=== PATIENT | male | born 1985 | race Hispanic/Latino ===

== ENCOUNTER 2017-12-01 17:54 | Inpatient (IN) | payer OTHER ==
--- OUTSIDE RECORDS SUMMARY | 2017-12-01 17:58 | XMS REPORT ---
:1985 [facility] [address] [place] [address] Care Team Providers Name Role Phone UNKNOWN, REFFERING Primary Care Provider Unavailable DANYELLE HAND M.D. Unavailable Unavailable KHAI GILLETTE M.D. Unavailable Unavailable Celia PIERCE Unavailable Unavailable Problems This patient has no known problems. Allergies, Adverse Reactions, Alerts This patient has no known allergies or adverse reactions. Medications This patient has no known medications. Encounters Start End Encounter Admission Attending Care Care Encounter Date/Time Date/Time Type Type Clinicians Facility Department ID 2017-07-02 2017-07-07 [facility] [id number] 14:57:00 22:44:00 [place] Results Test Description Test Time Test Comments Text Results Atomic Results Result Comments POC Glucose, Blood 2017-07-19 11:20:00 Test Item Value Reference Range Comments POC Glucose (test code=POCGLUC) 160 mg/dL 70-115 If you consider your patient critically ill, the [place] Accu-Chek InformII metershould not be used for Glucose determinations.Draw a venous Glucose and send to the Main Lab for Analysis. POC Glucose, [id number] 07:41:00 Test Item Value Reference Range Comments POC Glucose (test 121 mg/dL 70-115 If you consider your patient code=POCGLUC) critically ill, the [place] Accu-Chek InformII metershould not be used for Glucose determinations.Draw a venous Glucose and send to the Main Lab for Analysis. POC Glucose, [id number] 21:24:00 Test Item Value Reference Range Comments POC Glucose (test 108 mg/dL 70-115 If you consider your patient code=POCGLUC) critically ill, the [place] Accu-Chek InformII metershould not be used for Glucose determinations.Draw a venous Glucose and send to the Main Lab for Analysis. POC Glucose, [id number] 15:55:00 Test Item Value Reference Range Comments POC Glucose (test 160 mg/dL 70-115 Notify RN or MDIf you consider code=POCGLUC) your patient critically ill, the [place] Accu-Chek InformII metershould not be used for Glucose determinations.Draw a venous Glucose and send to the Main Lab for Analysis. POC Glucose, [id number] 11:21:00 Test Item Value Reference Range Comments POC Glucose (test 111 mg/dL 70-115 If you consider your patient code=POCGLUC) critically ill, the [place] Accu-Chek InformII metershould not be used for Glucose determinations.Draw a venous Glucose and send to the Main Lab for Analysis. POC Glucose, [id number] 08:06:00 Test Item Value Reference Range Comments POC Glucose (test 135 mg/dL 70-115 If you consider your patient code=POCGLUC) critically ill, the [place] Accu-Chek InformII metershould not be used for Glucose determinations.Draw a venous Glucose and send to the Main Lab for Analysis. POC Glucose, [id number] 22:43:00 Test Item Value Reference Range Comments POC Glucose (test 106 mg/dL 70-115 If you consider your patient code=POCGLUC) critically ill, the [place] Accu-Chek InformII metershould not be used for Glucose determinations.Draw a venous Glucose and send to the Main Lab for Analysis. POC Glucose, [id number] 16:42:00 Test Item Value Reference Range Comments POC Glucose (test 96 mg/dL 70-115 If you consider your patient code=POCGLUC) critically ill, the [place] Accu-Chek InformII metershould not be used for Glucose determinations.Draw a venous Glucose and send to the Main Lab for Analysis. POC Glucose, [id number] 11:10:00 Test Item Value Reference Range Comments POC Glucose (test 149 mg/dL 70-115 Notify RN or MDIf you consider code=POCGLUC) your patient critically ill, the [place] Accu-Chek InformII metershould not be used for Glucose determinations.Draw a venous Glucose and send to the Main Lab for Analysis. POC Glucose, [id number] 07:26:00 Test Item Value Reference Range Comments POC Glucose (test 124 mg/dL 70-115 If you consider your patient code=POCGLUC) critically ill, the [place] Accu-Chek InformII metershould not be used for Glucose determinations.Draw a venous Glucose and send to the Main Lab for Analysis. POC Glucose, [id number] 21:16:00 Test Item Value Reference Range Comments POC Glucose (test 164 mg/dL 70-115 Notify RN or MDIf you consider code=POCGLUC) your patient critically ill, the [place] Accu-Chek InformII metershould not be used for Glucose determinations.Draw a venous Glucose and send to the Main Lab for Analysis. POC Glucose, [id number] 16:34:00 Test Item Value Reference Range Comments POC Glucose (test 100 mg/dL 70-115 If you consider your patient code=POCGLUC) critically ill, the [place] Accu-Chek InformII metershould not be used for Glucose determinations.Draw a venous Glucose and send to the Main Lab for Analysis. POC Glucose, [id number] 11:06:00 Test Item Value Reference Range Comments POC Glucose (test 120 mg/dL 70-115 If you consider your patient code=POCGLUC) critically ill, the [place] Accu-Chek InformII metershould not be used for Glucose determinations.Draw a venous Glucose and send to the Main Lab for Analysis. POC Glucose, [id number] 07:30:00 Test Item Value Reference Range Comments POC Glucose (test 80 mg/dL 70-115 If you consider your patient code=POCGLUC) critically ill, the [place] Accu-Chek InformII metershould not be used for Glucose determinations.Draw a venous Glucose and send to the Main Lab for Analysis. POC Glucose, [id number] 21:17:00 Test Item Value Reference Range Comments POC Glucose (test 175 mg/dL 70-115 Notify RN or MDIf you consider code=POCGLUC) your patient critically ill, the [place] Accu-Chek InformII metershould not be used for Glucose determinations.Draw a venous Glucose and send to the Main Lab for Analysis. POC Glucose, [id number] 17:46:00 Test Item Value Reference Range Comments POC Glucose (test 128 mg/dL 70-115 If you consider your patient code=POCGLUC) critically ill, the [place] Accu-Chek InformII metershould not be used for Glucose determinations.Draw a venous Glucose and send to the Main Lab for Analysis. POC Glucose, [id number] 11:35:00 Test Item Value Reference Range Comments POC Glucose (test 134 mg/dL 70-115 If you consider your patient code=POCGLUC) critically ill, the [place] Accu-Chek InformII metershould not be used for Glucose determinations.Draw a venous Glucose and send to the Main Lab for Analysis. POC Glucose, [id number] 08:10:00 Test Item Value Reference Range Comments POC Glucose (test 220 mg/dL 70-115 If you consider your patient code=POCGLUC) critically ill, the [place] Accu-Chek InformII metershould not be used for Glucose determinations.Draw a venous Glucose and send to the Main Lab for Analysis. Comprehensive Metabolic [id number] 06:52:00 Test Item Value Reference Range Comments Sodium (test code=NA) 136 mmol/L 135-145 Potassium (test code=K) 4.3 mmol/L 3.5-5.1 Chloride (test code=CL) 97 mmol/L 98-105 Carbon Dioxide (test 27 mmol/L 22-29 code=CO2) Glucose (test code=GLU) 137 mg/dL 70-115 Blood Urea Nitrogen 14 mg/dL 6-20 (test code=BUN) Creatinine (test 1.0 mg/dL 0.7-1.2 code=CREAT) Calcium (test code=CA) 8.7 mg/dL 8.3-10.5 Prot Total (test 5.9 g/dL 6.4-8.3 code=TP) Albumin (test code=ALB) 2.7 g/dL 3.5-5.2 A/G Ratio (test 0.8 Ratio code=AGRATIO) Globulin (test 3.2 2.9-3.1 code=GLOB) Bili Total (test 0.2 mg/dL 0.1-0.9 code=TBIL) Alk Phos (test 93 U/L 40-129 code=APHOS) AST (test code=AST) 32 U/L 1-40 ALT (test code=ALT) 7 U/L 1-41 BUN/Creatinine Ratio 14.0 (test code=BCRATIO) Anion Gap (test 12 mmol/L 7-16 code=AGAP) Estimated GFR (test >60 eGFR (estimated Glomerular code=GFR) mL/min/1.73m2 Filtration Rate) is an estimated value,calculated from the patient's serum creatinine using the MDRD equation.It is NOT the patient's actual GFR. The eGFR provides a more clinicallyuseful measure of kidney disease than serum creatinine alone.This calculation takes sex and race into account, if the informationis provided. If the race is not provided, and the patient isAfrican-Maltese, multiply by 1.212. If sex is not provided, and thepatient is female, multiply by 0.742. Results for patients <18 years ofage have not been validated by the MDRD study and should be interpretedwith caution.eGFR Result Interpretation:eGFR > or=60 is in the Normal RangeeGFR < 60 may mean kidney diseaseeGFR < 15 may mean kidney failureRanges recommended by the National Kidney Foundation,http://nkdep.ni h.gov CBC with [id number] 06:34:00 Test Item Value Reference Range Comments WBC (test code=WBC) 11.5 K/cumm 4.4-10.5 RBC (test code=RBC) 3.67 M/cumm 4.10-5.70 Hemoglobin (test code=HGB) 8.7 gm/dL 13.4-17.4 Hematocrit (test code=HCT) 27.5 % 38.7-52.0 MCV (test code=MCV) 74.9 fL 80-100 MCH (test code=MCH) 23.8 pg 27.0-32.5 MCHC (test code=MCHC) 31.7 g/dL 32.0-37.5 RDW (test code=RDW) 15.2 % 11.5-14.5 Platelet Count (test code=PLTCT) 499 K/cumm 140-440 MPV (test code=MPV) 6.0 fL Diff Method (test code=DIFFM) Auto Neutrophil (test code=NEUT) 70.6 % 36-70 Lymphocyte (test code=LYMPH) 21.3 % 12-44 Monocyte (test code=MONO) 6.0 % 0-11 Eosinophil (test code=EOS) 1.7 % 0-7 Basophil (test code=BASO) 0.4 % 0-2 Neutro Abs (test code=ANEUT) 8.1 K/cumm 1.6-7.4 Lymph Abs (test code=ALYMPH) 2.4 K/cumm 0.5-4.6 [place] Abs (test code=AMONO) 0.7 K/cumm 0.0-1.2 Eos Abs (test code=AEOS) 0.19 K/cumm 0.00-0.74 Baso Abs (test code=ABASO) 0.1 K/cumm 0.00-0.21 Microcytosis (test code=MICRO) Slight POC Glucose, [id number] 20:28:00 Test Item Value Reference Range Comments POC Glucose (test 211 mg/dL 70-115 If you consider your patient code=POCGLUC) critically ill, the [place] Accu-Chek InformII metershould not be used for Glucose determinations.Draw a venous Glucose and send to the Main Lab for Analysis. POC Glucose, [id number] 17:09:00 Test Item Value Reference Range Comments POC Glucose (test 146 mg/dL 70-115 If you consider your patient code=POCGLUC) critically ill, the [place] Accu-Chek InformII metershould not be used for Glucose determinations.Draw a venous Glucose and send to the Main Lab for Analysis. POC Glucose, [id number] 11:53:00 Test Item Value Reference Range Comments POC Glucose (test 136 mg/dL 70-115 If you consider your patient code=POCGLUC) critically ill, the [place] Accu-Chek InformII metershould not be used for Glucose determinations.Draw a venous Glucose and send to the Main Lab for Analysis. POC Glucose, [id number] 07:57:00 Test Item Value Reference Range Comments POC Glucose (test 143 mg/dL 70-115 If you consider your patient code=POCGLUC) critically ill, the [place] Accu-Chek InformII metershould not be used for Glucose determinations.Draw a venous Glucose and send to the Main Lab for Analysis. POC Glucose, [id number] 20:38:00 Test Item Value Reference Range Comments POC Glucose (test 152 mg/dL 70-115 Notify RN or MDIf you consider code=POCGLUC) your patient critically ill, the [place] Accu-Chek InformII metershould not be used for Glucose determinations.Draw a venous Glucose and send to the Main Lab for Analysis. POC Glucose, [id number] 16:49:00 Test Item Value Reference Range Comments POC Glucose (test 171 mg/dL 70-115 Notify RN or MDIf you consider code=POCGLUC) your patient critically ill, the [place] Accu-Chek InformII metershould not be used for Glucose determinations.Draw a venous Glucose and send to the Main Lab for Analysis. POC Glucose, [id number] 11:10:00 Test Item Value Reference Range Comments POC Glucose (test 160 mg/dL 70-115 Notify RN or MDIf you consider code=POCGLUC) your patient critically ill, the [place] Accu-Chek InformII metershould not be used for Glucose determinations.Draw a venous Glucose and send to the Main Lab for Analysis. POC Glucose, [id number] 07:36:00 Test Item Value Reference Range Comments POC Glucose (test 126 mg/dL 70-115 If you consider your patient code=POCGLUC) critically ill, the [place] Accu-Chek InformII metershould not be used for Glucose determinations.Draw a venous Glucose and send to the Main Lab for Analysis. POC Glucose, [id number] 20:51:00 Test Item Value Reference Range Comments POC Glucose (test 165 mg/dL 70-115 Notify RN or MDIf you consider code=POCGLUC) your patient critically ill, the [place] Accu-Chek InformII metershould not be used for Glucose determinations.Draw a venous Glucose and send to the Main Lab for Analysis. POC Glucose, [id number] 16:42:00 Test Item Value Reference Range Comments POC Glucose (test 133 mg/dL 70-115 If you consider your patient code=POCGLUC) critically ill, the [place] Accu-Chek InformII metershould not be used for Glucose determinations.Draw a venous Glucose and send to the Main Lab for Analysis. POC Glucose, [id number] 11:19:00 Test Item Value Reference Range Comments POC Glucose (test 250 mg/dL 70-115 Notify RN or MDIf you consider code=POCGLUC) your patient critically ill, the [place] Accu-Chek InformII metershould not be used for Glucose determinations.Draw a venous Glucose and send to the Main Lab for Analysis. Culture, [id number] 08:19:00Specimen: UrineCollected: 07/10/2017 12:47 Status: Final Last Updated: 07/12/2017 08:19 Culture Result (Final) (Final ) 07/11/17 No growth 24 hours 07/12/17 No growth 48 hoursPOC Glucose, [id number] 07:26:00 Test Item Value Reference Range Comments POC Glucose (test 131 mg/dL 70-115 Notify RN or MDIf you consider code=POCGLUC) your patient critically ill, the [place] Accu-Chek InformII metershould not be used for Glucose determinations.Draw a venous Glucose and send to the Main Lab for Analysis. POC Glucose, [id number] 20:55:00 Test Item Value Reference Range Comments POC Glucose (test 140 mg/dL 70-115 If you consider your patient code=POCGLUC) critically ill, the [place] Accu-Chek InformII metershould not be used for Glucose determinations.Draw a venous Glucose and send to the Main Lab for Analysis. POC Glucose, [id number] 16:13:00 Test Item Value Reference Range Comments POC Glucose (test 151 mg/dL 70-115 Notify RN or MDIf you consider code=POCGLUC) your patient critically ill, the [place] Accu-Chek InformII metershould not be used for Glucose determinations.Draw a venous Glucose and send to the Main Lab for Analysis. POC Glucose, [id number] 11:43:00 Test Item Value Reference Range Comments POC Glucose (test 170 mg/dL 70-115 Notify RN or MDIf you consider code=POCGLUC) your patient critically ill, the [place] Accu-Chek InformII metershould not be used for Glucose determinations.Draw a venous Glucose and send to the Main Lab for Analysis. POC Glucose, [id number] 07:23:00 Test Item Value Reference Range Comments POC Glucose (test 207 mg/dL 70-115 Notify RN or MDIf you consider code=POCGLUC) your patient critically ill, the [place] Accu-Chek InformII metershould not be used for Glucose determinations.Draw a venous Glucose and send to the Main Lab for Analysis. POC Glucose, [id number] 20:24:00 Test Item Value Reference Range Comments POC Glucose (test 208 mg/dL 70-115 If you consider your patient code=POCGLUC) critically ill, the [place] Accu-Chek InformII metershould not be used for Glucose determinations.Draw a venous Glucose and send to the Main Lab for Analysis. POC Glucose, [id number] 17:14:00 Test Item Value Reference Range Comments POC Glucose (test 158 mg/dL 70-115 If you consider your patient code=POCGLUC) critically ill, the [place] Accu-Chek InformII metershould not be used for Glucose determinations.Draw a venous Glucose and send to the Main Lab for Analysis. Urinalysis [id number] 13:04:00 Test Item Value Reference Range Comments Color (test code=COLOR) Straw Yellow,Straw,Pl yellow Clarity (test code=CLAR) Clear Clear Specific [place] (test code=SPGR) 1.010 1.001-1.035 pH (test code=PH) 5.0 5.0-9.0 Ketone (test code=KET) Negative mg/dL Negative Glucose (test code=GLUCUR) Negative mg/dL Negative Protein (test code=PROT) Negative mg/dL Negative Bilirubin (test code=BILI) Negative mg/dL Negative Occult Blood (test code=UDOB) Negative Negative Urobilinogen (test code=UROB) 0.2 mg/dL 0.2-1.0 Nitrite (test code=NIT) Negative Negative Leuk Esterase (test code=LEUK) Negative Negative Micros Exam (test code=MEXAM) Not indicated POC Glucose, [id number] 11:48:00 Test Item Value Reference Range Comments POC Glucose (test 135 mg/dL 70-115 If you consider your patient code=POCGLUC) critically ill, the [place] Accu-Chek InformII metershould not be used for Glucose determinations.Draw a venous Glucose and send to the Main Lab for Analysis. POC Glucose, [id number] 07:47:00 Test Item Value Reference Range Comments POC Glucose (test 173 mg/dL 70-115 If you consider your patient code=POCGLUC) critically ill, the [place] Accu-Chek InformII metershould not be used for Glucose determinations.Draw a venous Glucose and send to the Main Lab for Analysis. Basic Metabolic [id number] 05:18:00 Test Item Value Reference Range Comments Sodium (test code=NA) 133 mmol/L 135-145 Potassium (test code=K) 4.9 mmol/L 3.5-5.1 Chloride (test code=CL) 99 mmol/L 98-105 Carbon Dioxide (test 25 mmol/L 22-29 code=CO2) Glucose (test code=GLU) 129 mg/dL 70-115 Blood Urea Nitrogen 15 mg/dL 6-20 (test code=BUN) Creatinine (test 1.2 mg/dL 0.7-1.2 code=CREAT) Calcium (test code=CA) 8.3 mg/dL 8.3-10.5 BUN/Creatinine Ratio 12.5 (test code=BCRATIO) Anion Gap (test 9 mmol/L 7-16 code=AGAP) Estimated GFR (test >60 eGFR (estimated Glomerular code=GFR) mL/min/1.73m2 Filtration Rate) is an estimated value,calculated from the patient's serum creatinine using the MDRD equation.It is NOT the patient's actual GFR. The eGFR provides a more clinicallyuseful measure of kidney disease than serum creatinine alone.This calculation takes sex and race into account, if the informationis provided. If the race is not provided, and the patient isAfrican-Maltese, multiply by 1.212. If sex is not provided, and thepatient is female, multiply by 0.742. Results for patients <18 years ofage have not been validated by the MDRD study and should be interpretedwith caution.eGFR Result Interpretation:eGFR > or=60 is in the Normal RangeeGFR < 60 may mean kidney diseaseeGFR < 15 may mean kidney failureRanges recommended by the National Kidney Foundation,http://nkdep.ni h.gov CBC with [id number] 04:59:00 Test Item Value Reference Range Comments WBC (test code=WBC) 11.3 K/cumm 4.4-10.5 RBC (test code=RBC) 3.93 M/cumm 4.10-5.70 Hemoglobin (test code=HGB) 9.6 gm/dL 13.4-17.4 Hematocrit (test code=HCT) 30.6 % 38.7-52.0 MCV (test code=MCV) 78.0 fL 80-100 MCH (test code=MCH) 24.4 pg 27.0-32.5 MCHC (test code=MCHC) 31.3 g/dL 32.0-37.5 RDW (test code=RDW) 15.7 % 11.5-14.5 Platelet Count (test code=PLTCT) 346 K/cumm 140-440 MPV (test code=MPV) 6.5 fL Diff Method (test code=DIFFM) Auto Neutrophil (test code=NEUT) 65.7 % 36-70 Lymphocyte (test code=LYMPH) 24.3 % 12-44 Monocyte (test code=MONO) 7.4 % 0-11 Eosinophil (test code=EOS) 2.3 % 0-7 Basophil (test code=BASO) 0.4 % 0-2 Neutro Abs (test code=ANEUT) 7.4 K/cumm 1.6-7.4 Lymph Abs (test code=ALYMPH) 2.7 K/cumm 0.5-4.6 [place] Abs (test code=AMONO) 0.8 K/cumm 0.0-1.2 Eos Abs (test code=AEOS) 0.26 K/cumm 0.00-0.74 Baso Abs (test code=ABASO) 0.0 K/cumm 0.00-0.21 POC Glucose, [id number] 20:59:00 Test Item Value Reference Range Comments POC Glucose (test 199 mg/dL 70-115 Notify RN or MDIf you consider code=POCGLUC) your patient critically ill, the [place] Accu-Chek InformII metershould not be used for Glucose determinations.Draw a venous Glucose and send to the Main Lab for Analysis. POC Glucose, [id number] 16:26:00 Test Item Value Reference Range Comments POC Glucose (test 170 mg/dL 70-115 Notify RN or MDIf you consider code=POCGLUC) your patient critically ill, the [place] Accu-Chek InformII metershould not be used for Glucose determinations.Draw a venous Glucose and send to the Main Lab for Analysis. POC Glucose, [id number] 11:41:00 Test Item Value Reference Range Comments POC Glucose (test 246 mg/dL 70-115 If you consider your patient code=POCGLUC) critically ill, the [place] Accu-Chek InformII metershould not be used for Glucose determinations.Draw a venous Glucose and send to the Main Lab for Analysis. Glycosylated [id number] 07:39:00 Test Item Value Reference Range Comments HBA1c (test code=HBA1C) 9.1 % 4.8-5.9 POC Glucose, [id number] 07:36:00 Test Item Value Reference Range Comments POC Glucose (test 206 mg/dL 70-115 If you consider your patient code=POCGLUC) critically ill, the [place] Accu-Chek InformII metershould not be used for Glucose determinations.Draw a venous Glucose and send to the Main Lab for Analysis. CBC with [id number] 06:09:00 Test Item Value Reference Range Comments WBC (test code=WBC) 15.4 K/cumm 4.4-10.5 RBC (test code=RBC) 4.26 M/cumm 4.10-5.70 Hemoglobin (test code=HGB) 10.1 gm/dL 13.4-17.4 Hematocrit (test code=HCT) 32.3 % 38.7-52.0 MCV (test code=MCV) 75.8 fL 80-100 MCH (test code=MCH) 23.6 pg 27.0-32.5 MCHC (test code=MCHC) 31.2 g/dL 32.0-37.5 RDW (test code=RDW) 15.4 % 11.5-14.5 Platelet Count (test code=PLTCT) 401 K/cumm 140-440 MPV (test code=MPV) 6.2 fL Diff Method (test code=DIFFM) Auto Neutrophil (test code=NEUT) 69.5 % 36-70 Lymphocyte (test code=LYMPH) 22.7 % 12-44 Monocyte (test code=MONO) 6.2 % 0-11 Eosinophil (test code=EOS) 1.2 % 0-7 Basophil (test code=BASO) 0.4 % 0-2 Neutro Abs (test code=ANEUT) 10.7 K/cumm 1.6-7.4 Lymph Abs (test code=ALYMPH) 3.5 K/cumm 0.5-4.6 [place] Abs (test code=AMONO) 1.0 K/cumm 0.0-1.2 Eos Abs (test code=AEOS) 0.19 K/cumm 0.00-0.74 Baso Abs (test code=ABASO) 0.1 K/cumm 0.00-0.21 Microcytosis (test code=MICRO) Slight Comprehensive Metabolic [id number] 06:00:00 Test Item Value Reference Range Comments Sodium (test code=NA) 126 mmol/L 135-145 Potassium (test code=K) 4.3 mmol/L 3.5-5.1 Chloride (test code=CL) 90 mmol/L 98-105 Carbon Dioxide (test 26 mmol/L 22-29 code=CO2) Glucose (test code=GLU) 191 mg/dL 70-115 Blood Urea Nitrogen 14 mg/dL 6-20 (test code=BUN) Creatinine (test 1.0 mg/dL 0.7-1.2 code=CREAT) Calcium (test code=CA) 8.4 mg/dL 8.3-10.5 Prot Total (test 6.4 g/dL 6.4-8.3 code=TP) Albumin (test code=ALB) 3.5 g/dL 3.5-5.2 A/G Ratio (test 1.2 Ratio code=AGRATIO) Globulin (test 2.9 2.9-3.1 code=GLOB) Bili Total (test 0.2 mg/dL 0.1-0.9 code=TBIL) Alk Phos (test 98 U/L 40-129 code=APHOS) AST (test code=AST) 25 U/L 1-40 ALT (test code=ALT) 12 U/L 1-41 BUN/Creatinine Ratio 14.0 (test code=BCRATIO) Anion Gap (test 10 mmol/L 7-16 code=AGAP) Estimated GFR (test >60 eGFR (estimated Glomerular code=GFR) mL/min/1.73m2 Filtration Rate) is an estimated value,calculated from the patient's serum creatinine using the MDRD equation.It is NOT the patient's actual GFR. The eGFR provides a more clinicallyuseful measure of kidney disease than serum creatinine alone.This calculation takes sex and race into account, if the informationis provided. If the race is not provided, and the patient isAfrican-Maltese, multiply by 1.212. If sex is not provided, and thepatient is female, multiply by 0.742. Results for patients <18 years ofage have not been validated by the MDRD study and should be interpretedwith caution.eGFR Result Interpretation:eGFR > or=60 is in the Normal RangeeGFR < 60 may mean kidney diseaseeGFR < 15 may mean kidney failureRanges recommended by the National Kidney Foundation,http://nkdep.ni h.gov Magnesium, [id number] 06:00:00 Test Item Value Reference Range Comments Magnesium (test code=MG) 2.2 mg/dL 1.7-2.5 [id number] 06:00:00 Test Item Value Reference Range Comments Phosphorus (test code=PO4) 2.8 mg/dL 2.70-4.50 POC Glucose, [id number] 20:44:00 Test Item Value Reference Range Comments POC Glucose (test 199 mg/dL 70-115 If you consider your patient code=POCGLUC) critically ill, the [place] Accu-Chek InformII metershould not be used for Glucose determinations.Draw a venous Glucose and send to the Main Lab for Analysis. POC Glucose, [id number] 16:28:00 Test Item Value Reference Range Comments POC Glucose (test 242 mg/dL 70-115 Notify RN or MDIf you consider code=POCGLUC) your patient critically ill, the [place] Accu-Chek InformII metershould not be used for Glucose determinations.Draw a venous Glucose and send to the Main Lab for Analysis. POC Glucose, [id number] 13:37:00 Test Item Value Reference Range Comments POC Glucose (test 131 mg/dL 70-115 If you consider your patient code=POCGLUC) critically ill, the [place] Accu-Chek InformII metershould not be used for Glucose determinations.Draw a venous Glucose and send to the Main Lab for Analysis. POC Glucose, [id number] 12:14:00 Test Item Value Reference Range Comments POC Glucose (test 100 mg/dL 70-115 If you consider your patient code=POCGLUC) critically ill, the [place] Accu-Chek InformII metershould not be used for Glucose determinations.Draw a venous Glucose and send to the Main Lab for Analysis. POC Glucose, [id number] 07:30:00 Test Item Value Reference Range Comments POC Glucose (test 123 mg/dL 70-115 If you consider your patient code=POCGLUC) critically ill, the [place] Accu-Chek InformII metershould not be used for Glucose determinations.Draw a venous Glucose and send to the Main Lab for Analysis. Basic Metabolic [id number] 06:05:00 Test Item Value Reference Range Comments Sodium (test code=NA) 138 mmol/L 135-145 Potassium (test code=K) 4.0 mmol/L 3.5-5.1 Chloride (test code=CL) 98 mmol/L 98-105 Carbon Dioxide (test 32 mmol/L 22-29 code=CO2) Glucose (test code=GLU) 128 mg/dL 70-115 Blood Urea Nitrogen 16 mg/dL 6-20 (test code=BUN) Creatinine (test 1.2 mg/dL 0.7-1.2 code=CREAT) Calcium (test code=CA) 9.4 mg/dL 8.3-10.5 BUN/Creatinine Ratio 13.3 (test code=BCRATIO) Anion Gap (test 8 mmol/L 7-16 code=AGAP) Estimated GFR (test >60 eGFR (estimated Glomerular code=GFR) mL/min/1.73m2 Filtration Rate) is an estimated value,calculated from the patient's serum creatinine using the MDRD equation.It is NOT the patient's actual GFR. The eGFR provides a more clinicallyuseful measure of kidney disease than serum creatinine alone.This calculation takes sex and race into account, if the informationis provided. If the race is not provided, and the patient isAfrican-Maltese, multiply by 1.212. If sex is not provided, and thepatient is female, multiply by 0.742. Results for patients <18 years ofage have not been validated by the MDRD study and should be interpretedwith caution.eGFR Result Interpretation:eGFR > or=60 is in the Normal RangeeGFR < 60 may mean kidney diseaseeGFR < 15 may mean kidney failureRanges recommended by the National Kidney Foundation,http://nkdep.ni h.gov CBC with [id number] 05:44:00 Test Item Value Reference Range Comments WBC (test code=WBC) 12.0 K/cumm 4.4-10.5 RBC (test code=RBC) 4.84 M/cumm 4.10-5.70 Hemoglobin (test code=HGB) 11.6 gm/dL 13.4-17.4 Hematocrit (test code=HCT) 37.5 % 38.7-52.0 MCV (test code=MCV) 77.4 fL 80-100 MCH (test code=MCH) 23.9 pg 27.0-32.5 MCHC (test code=MCHC) 30.9 g/dL 32.0-37.5 RDW (test code=RDW) 15.5 % 11.5-14.5 Platelet Count (test code=PLTCT) 443 K/cumm 140-440 MPV (test code=MPV) 6.2 fL Diff Method (test code=DIFFM) Auto Neutrophil (test code=NEUT) 49.5 % 36-70 Lymphocyte (test code=LYMPH) 39.8 % 12-44 Monocyte (test code=MONO) 6.9 % 0-11 Eosinophil (test code=EOS) 2.9 % 0-7 Basophil (test code=BASO) 0.9 % 0-2 Neutro Abs (test code=ANEUT) 5.9 K/cumm 1.6-7.4 Lymph Abs (test code=ALYMPH) 4.8 K/cumm 0.5-4.6 [place] Abs (test code=AMONO) 0.8 K/cumm 0.0-1.2 Eos Abs (test code=AEOS) 0.34 K/cumm 0.00-0.74 Baso Abs (test code=ABASO) 0.1 K/cumm 0.00-0.21 POC Glucose, [id number] 20:29:00 Test Item Value Reference Range Comments POC Glucose (test 152 mg/dL 70-115 If you consider your patient code=POCGLUC) critically ill, the [place] Accu-Chek InformII metershould not be used for Glucose determinations.Draw a venous Glucose and send to the Main Lab for Analysis. Antibody Screen - [id number] 17:58:00 Test Item Value Reference Range Comments Antibody Screen (test code=ABSCR) Negative Blood Type and [id number] 17:44:00 Test Item Value Reference Range Comments ABO type (test code=ABO) A Rh Type (test code=RH) Positive POC Glucose, [id number] 16:09:00 Test Item Value Reference Range Comments POC Glucose (test 192 mg/dL 70-115 If you consider your patient code=POCGLUC) critically ill, the [place] Accu-Chek InformII metershould not be used for Glucose determinations.Draw a venous Glucose and send to the Main Lab for Analysis. POC Glucose, [id number] 12:11:00 Test Item Value Reference Range Comments POC Glucose (test 249 mg/dL 70-115 If you consider your patient code=POCGLUC) critically ill, the [place] Accu-Chek InformII metershould not be used for Glucose determinations.Draw a venous Glucose and send to the Main Lab for Analysis. MRI LWR EXTRM NON-JNT WO [id number] 09:25:10LOCATION: [id number]: MRI LWR EXTRM NON-T WO CONTRST-LEFTINDICATION: LEFT FOOT DORSAL CALLOUSCOMPARISON : Left foot radiographs July 04, 2017.TECHNIQUE: Multiplanar, multisequence imaging of the left foot obtainedwithout contrast.FINDINGS: Bony edema involving the first metatarsal base as well as baseof the second metatarsal and base of the third metatarsal present. Thereis bony edema throughout thelateral cuneiform as well. Partialdisruption of the dorsal intermetatarsal ligament between the second andthird metatarsals. Muscular edema of the quadratus planta the muscle inthe deep soft tissues ofthe midfoot. Flexor and extensor tendons areintact. Small dorsal protruding ganglion cyst from the first MTP jointmeasuring 6 mm present. No T1 marrow signal replacement seen. Softtissue ulceration of the lateral forefoot with associated T1 marrowsignal replacement and bony edema of the fifth metatarsal remnant.Findings concerning for osteomyelitis.IMPRESSION:1. Findings concerning for a myelitis of the lateral forefoot involvingthe fifth metatarsal remnant. Associated ulceration.2. Bony edema at the base of the first through third metatarsals as wellas the lateral cuneiform. No fracture is seen. There is grade 2 spraininvolving the dorsal intermetatarsal ligament between the second andthird metatarsals. These findings are concerning for injury.US DUPLX LWR EXT ART/BPG, [id number] 08: 50:53US DUPLX LWR EXT ART/BPG, BILATCLINICAL HISTORY: non-healing woundsTechnique: Grayscale, color, and spectral sonography of the bilateral lower extremity arteries was performed.FINDINGS:Right leg (waveform / peak systolic velocity)INFORMATION TECHNOLOGY PROGRAM MANAGER: Triphasic 95 cm/secProx SFA: Triphasic 92 cm/secMid SFA: Triphasic 81 cm/secDistal SFA: Triphasic 83 cm/ secPopliteal: Triphasic 84 cm/secPTA: Monophasic 93 cm/ secATA: Triphasic 32 cm/secDPA: Not imaged/bandaging Left leg (waveform / peak systolic velocity)INFORMATION TECHNOLOGY PROGRAM MANAGER: Triphasic 88 cm/secProx SFA: Triphasic 93 cm/secMid SFA: Triphasic 82 cm/ secDistal SFA: Triphasic 49 cm/secPopliteal: Triphasic 60 cm/secPTA: Triphasic 73 cm/secATA: Triphasic 93 cm/secDPA: Not imaged/bandaging IMPRESSION: 1. Limited exam. Thedorsalis pedis arteries are not imaged.2. Abnormal monophasic waveform in the right posterior tibial artery.3. Otherwise unremarkable exam.Location: R16C with [id number] 08:22:00 Test Item Value Reference Range Comments WBC (test code=WBC) 10.0 K/cumm 4.4-10.5 RBC (test code=RBC) 5.36 M/cumm 4.10-5.70 Hemoglobin (test code=HGB) 12.8 gm/dL 13.4-17.4 Hematocrit (test code=HCT) 41.3 % 38.7-52.0 MCV (test code=MCV) 77.0 fL 80-100 MCH (test code=MCH) 23.9 pg 27.0-32.5 MCHC (test code=MCHC) 31.0 g/dL 32.0-37.5 RDW (test code=RDW) 14.5 % 11.5-14.5 Platelet Count (test code=PLTCT) 418 K/cumm 140-440 MPV (test code=MPV) 6.8 fL Diff Method (test code=DIFFM) Auto Neutrophil (test code=NEUT) 53.6 % 36-70 Lymphocyte (test code=LYMPH) 36.3 % 12-44 Monocyte (test code=MONO) 5.6 % 0-11 Eosinophil (test code=EOS) 3.7 % 0-7 Basophil (test code=BASO) 0.9 % 0-2 Neutro Abs (test code=ANEUT) 5.3 K/cumm 1.6-7.4 Lymph Abs (test code=ALYMPH) 3.6 K/cumm 0.5-4.6 [place] Abs (test code=AMONO) 0.6 K/cumm 0.0-1.2 Eos Abs (test code=AEOS) 0.37 K/cumm 0.00-0.74 Baso Abs (test code=ABASO) 0.1 K/cumm 0.00-0.21 Basic Metabolic [id number] 08:03:00 Test Item Value Reference Range Comments Sodium (test code=NA) 132 mmol/L 135-145 Potassium (test code=K) 4.3 mmol/L 3.5-5.1 Chloride (test code=CL) 97 mmol/L 98-105 Carbon Dioxide (test 27 mmol/L 22-29 code=CO2) Glucose (test code=GLU) 113 mg/dL 70-115 Blood Urea Nitrogen 14 mg/dL 6-20 (test code=BUN) Creatinine (test 1.1 mg/dL 0.7-1.2 code=CREAT) Calcium (test code=CA) 9.1 mg/dL 8.3-10.5 BUN/Creatinine Ratio 12.7 (test code=BCRATIO) Anion Gap (test 8 mmol/L 7-16 code=AGAP) Estimated GFR (test >60 eGFR (estimated Glomerular code=GFR) mL/min/1.73m2 Filtration Rate) is an estimated value,calculated from the patient's serum creatinine using the MDRD equation.It is NOT the patient's actual GFR. The eGFR provides a more clinicallyuseful measure of kidney disease than serum creatinine alone.This calculation takes sex and race into account, if the informationis provided. If the race is not provided, and the patient isAfrican-Maltese, multiply by 1.212. If sex is not provided, and thepatient is female, multiply by 0.742. Results for patients <18 years ofage have not been validated by the MDRD study and should be interpretedwith caution.eGFR Result Interpretation:eGFR > or=60 is in the Normal RangeeGFR < 60 may mean kidney diseaseeGFR < 15 may mean kidney failureRanges recommended by the National Kidney Foundation,http://nkdep.ni h.gov POC Glucose, [id number] 07:30:00 Test Item Value Reference Range Comments POC Glucose (test 110 mg/dL 70-115 If you consider your patient code=POCGLUC) critically ill, the [facility] Accu-Chek InformII metershould not be used for Glucose determinations.Draw a venous Glucose and send to the Main Lab for Analysis. POC Glucose, [id number] 19:57:00 Test Item Value Reference Range Comments POC Glucose (test 124 mg/dL 70-115 If you consider your patient code=POCGLUC) critically ill, the [facility] Accu-Chek InformII metershould not be used for Glucose determinations.Draw a venous Glucose and send to the Main Lab for Analysis. POC Glucose, [id number] 16:10:00 Test Item Value Reference Range Comments POC Glucose (test 114 mg/dL 70-115 Notify RN or MDIf you consider code=POCGLUC) your patient critically ill, the [facility] Accu-Chek InformII metershould not be used for Glucose determinations.Draw a venous Glucose and send to the Main Lab for Analysis. POC Glucose, [id number] 11:18:00 Test Item Value Reference Range Comments POC Glucose (test 203 mg/dL 70-115 Notify RN or MDIf you consider code=POCGLUC) your patient critically ill, the [facility] Accu-Chek InformII metershould not be used for Glucose determinations.Draw a venous Glucose and send to the Main Lab for Analysis. Culture, Wound [id number] 09:58:00Specimen: FootCollected: 2016 17:00 Status: Final Last Updated: 07/06/2017 09:58 (1) Right foot Ulcer Gram Stain (Final) (Final) No organsims seen, No WBC's seen Culture Result (Final) (Final) 07/06/17 Anaerobic culture:No anaerobes isolated at 3 days Isolate (Final) (Final) 07/05/17 Moderate Pseudomonas aeruginosa Amikacin <=16 Susceptible Cefepime >16 Resistant Ceftazidime >16 Resistant Ciprofloxacin >2 Resistant Gentamicin <=4 Susceptible Imipenem <=1 Susceptible Levofloxacin & gt;4 Resistant Meropenem <=1 Susceptible Piperacillin/ Tazo >64 Resistant Tobramycin <=4 Susceptible Isolate (Final) (Final) 07/05/17 Many Beta Hemolytic Streptococcus Beta Hemolytic Streptococcus Group GPOC Glucose, [id number] 07:23:00 Test Item Value Reference Range Comments POC Glucose (test 197 mg/dL 70-115 Notify RN or MDIf you consider code=POCGLUC) your patient critically ill, the [facility] Accu-Chek InformII metershould not be used for Glucose determinations.Draw a venous Glucose and send to the Main Lab for Analysis. POC Glucose, [id number] 16:09:00 Test Item Value Reference Range Comments POC Glucose (test 194 mg/dL 70-115 If you consider your patient code=POCGLUC) critically ill, the [facility] Accu-Chek InformII metershould not be used for Glucose determinations.Draw a venous Glucose and send to the Main Lab for Analysis. POC Glucose, [id number] 11:33:00 Test Item Value Reference Range Comments POC Glucose (test 193 mg/dL 70-115 If you consider your patient code=POCGLUC) critically ill, the [facility] Accu-Chek InformII metershould not be used for Glucose determinations.Draw a venous Glucose and send to the Main Lab for Analysis. MRI LWR EXTRM NON-JNT WO [id number] 08:18:56EXAM: MRI right foot without contrastLocation: [id number]: History of amputation, rule out osteomyelitisCOMPARISON: Left foot radiographs performed the same dayTECHNIQUE: True axial T1, T2, and PD fat sat, true coronal T1 and STIR,and sagittal PD fat sat and T1-weighted sequences of the right foot wereobtained without IV contrast.DISCUSSION:Soft tissues: The plantar foot ulceration is seen adjacent to the fifthmetatarsal stump on coronal image 12 of STIR series 8.Bones: There is been previous in dictation of the forefoot at the levelof the proximal to mid metatarsals. There is decreased T1 signal at thedistal portion of the fifth metatarsal stump associated with corticalerosion, with an adjacent plantar forefoot ulcer. This is compatiblewith osteomyelitis. There is decreased T1 signal associated with thedistal aspect of the third metatarsal remnant with a suspected corticalerosion on sagittalimage 21, suggestive of osteomyelitis. There isedema without cortical erosion or T1 marrow replacingabnormality in thefourth metatarsal remnant, suggestive of reactive osteitis. No fractureis seen.IMPRESSION: 1. Plantar foot ulceration adjacent to the fifth metatarsal stump. Thereis osteomyelitis of the fifth metatarsal stump.2. Findings suggest osteomyelitis of the third metatarsal stump andreactive osteitis of the fourth metatarsal stump.3. Post amputation changes as described.POC Glucose, [id number] 07:15:00 Test Item Value Reference Range Comments POC Glucose (test 140 mg/dL 70-115 If you consider your patient code=POCGLUC) critically ill, the [facility] Accu-Chek InformII metershould not be used for Glucose determinations.Draw a venous Glucose and send to the Main Lab for Analysis. Sed Rate ESR ([place])2017-07-05 06:40:00 Test Item Value Reference Range Comments ESR (test code=HESR) 54 mm/Hr 0-9 C-Reactive Protein, [id number] 05:41:00 Test Item Value Reference Range Comments CRP (test code=CRP) 34.7 mg/L 0.0-5.0 POC Glucose, [id number] 21:22:00 Test Item Value Reference Range Comments POC Glucose (test 141 mg/dL 70-115 If you consider your patient code=POCGLUC) critically ill, the [facility] Accu-Chek InformII metershould not be used for Glucose determinations.Draw a venous Glucose and send to the Main Lab for Analysis. POC Glucose, [id number] 16:09:00 Test Item Value Reference Range Comments POC Glucose (test 156 mg/dL 70-115 If you consider your patient code=POCGLUC) critically ill, the [place] Accu-Chek InformII metershould not be used for Glucose determinations.Draw a venous Glucose and send to the Main Lab for Analysis. POC Glucose, [id number] 12:05:00 Test Item Value Reference Range Comments POC Glucose (test 170 mg/dL 70-115 If you consider your patient code=POCGLUC) critically ill, the [place] Accu-Chek InformII metershould not be used for Glucose determinations.Draw a venous Glucose and send to the Main Lab for Analysis. XR FOOT [id number] 08:56:55XR FOOT 2V-LEFTLOCATION: [id number]:left foot ulcer COMPARISON: None.DISCUSSION:Frontal and lateral radiographs of the left foot were obtained. Amputation of the fifth ray at the mid metatarsal is noted; a few smallcorticated osseous fragments at the application stump are nonspecific. Otherwise,no definite suspicious focal osseous destruction, periostealreaction, acute fracture, or dislocationis seen.IMPRESSION:1. Amputation of the fifth ray at the mid metatarsal. Few nonspecificsmall corticated osseous fragments at the amputation stump.2. No definite acute osseous abnormalities.XR FOOT [id number] 08:53:30XR FOOT 2V- RIGHTLOCATION: [id number]:right foot stump ulcer COMPARISON: None.DISCUSSION:Frontal and lateral radiographs of the right foot were obtained. Amputation changes at the proximal metatarsals are noted.No definite suspicious focal osseous destruction or periosteal reactionis seen.Otherwise, no acute fracture or dislocation is seen.The joint spaces are grossly preserved.IMPRESSION:1. 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 No definite acute osseous abnormalities.POC Glucose, [id number] 07:50:00 Test Item Value Reference Range Comments POC Glucose (test 139 mg/dL 70-115 If you consider your patient code=POCGLUC) critically ill, the [place] Accu-Chek InformII metershould not be used for Glucose determinations.Draw a venous Glucose and send to the Main Lab for Analysis. CBC with [id number] 06:19:00 Test Item Value Reference Range Comments WBC (test code=WBC) 8.0 K/cumm 4.4-10.5 RBC (test code=RBC) 4.28 M/cumm 4.10-5.70 Hemoglobin (test code=HGB) 10.5 gm/dL 13.4-17.4 Hematocrit (test code=HCT) 32.8 % 38.7-52.0 MCV (test code=MCV) 76.7 fL 80-100 MCH (test code=MCH) 24.5 pg 27.0-32.5 MCHC (test code=MCHC) 32.0 g/dL 32.0-37.5 RDW (test code=RDW) 14.8 % 11.5-14.5 Platelet Count (test code=PLTCT) 392 K/cumm 140-440 MPV (test code=MPV) 6.7 fL Diff Method (test code=DIFFM) Auto Neutrophil (test code=NEUT) 53.8 % 36-70 Lymphocyte (test code=LYMPH) 34.0 % 12-44 Monocyte (test code=MONO) 7.4 % 0-11 Eosinophil (test code=EOS) 4.0 % 0-7 Basophil (test code=BASO) 0.7 % 0-2 Neutro Abs (test code=ANEUT) 4.3 K/cumm 1.6-7.4 Lymph Abs (test code=ALYMPH) 2.7 K/cumm 0.5-4.6 [place] Abs (test code=AMONO) 0.6 K/cumm 0.0-1.2 Eos Abs (test code=AEOS) 0.32 K/cumm 0.00-0.74 Baso Abs (test code=ABASO) 0.1 K/cumm 0.00-0.21 Lipid [id number] 06:15:00 Test Item Value Reference Range Comments Cholesterol (test 133 mg/dL 0-200 code=CHOL) Triglycerides (test 164 mg/dL 9-200 code=TRIG) HDL (test code=HDL) 31 mg/dL 40-60 Chol/HDL (test 4.3 Ratio 0.0-5.0 code=CHOLPHDL) LDL, Calculated (test 69 0-130 (NOTE)RISK OF HEART code=LDLC) DISEASEPublished by [place] Heart AssociationAnalyte Optimal Boderline Increased RiskCHOL <200 200-239 >240TRIG <150 150-199 >200HDL Male: >60 <40HDL Female: >60 <50LDL <100 130-159 >160LDL NEAR OPTIMAL IS 100-129 VLDL (test code=VLDL) 33 mg/dL 5-40 LDL/HDL (test code=LDLPHDL) 2 POC Glucose, [id number] 17:14:00 Test Item Value Reference Range Comments POC Glucose (test 129 mg/dL 70-115 If you consider your patient code=POCGLUC) critically ill, the [place] Accu-Chek InformII metershould not be used for Glucose determinations.Draw a venous Glucose and send to the Main Lab for Analysis. RPR, [id number] 12:26:00 Test Item Value Reference Range Comments RPR (test code=RPR) Non-Reactive Non-Reactive POC Glucose, [id number] 12:05:00 Test Item Value Reference Range Comments POC Glucose (test 173 mg/dL 70-115 If you consider your patient code=POCGLUC) critically ill, the [place] Accu-Chek InformII metershould not be used for Glucose determinations.Draw a venous Glucose and send to the Main Lab for Analysis. POC Glucose, [id number] 07:57:00 Test Item Value Reference Range Comments POC Glucose (test 144 mg/dL 70-115 If you consider your patient code=POCGLUC) critically ill, the [place] Accu-Chek InformII metershould not be used for Glucose determinations.Draw a venous Glucose and send to the Main Lab for Analysis. POC Glucose, [id number] 06:19:00 Test Item Value Reference Range Comments POC Glucose (test 151 mg/dL 70-115 Notify RN or MDIf you consider code=POCGLUC) your patient critically ill, the [place] Accu-Chek InformII metershould not be used for Glucose determinations.Draw a venous Glucose and send to the Main Lab for Analysis. Thyroid Stimulating Hormone (TSH)2017-07-02 23:58:00 Test Item Value Reference Range Comments TSH (test code=TSH) 2.08 mIU/mL 0.270-4.200 Lipid [id number] 23:52:00 Test Item Value Reference Range Comments Cholesterol (test 171 mg/dL 0-200 code=CHOL) Triglycerides (test 171 mg/dL 9-200 code=TRIG) HDL (test code=HDL) 37 mg/dL 40-60 Chol/HDL (test 4.6 Ratio 0.0-5.0 code=CHOLPHDL) LDL, Calculated (test 100 0-130 (NOTE)RISK OF HEART code=LDLC) DISEASEPublished by [place] Heart AssociationAnalyte Optimal Boderline Increased RiskCHOL <200 200-239 >240TRIG <150 150-199 >200HDL Male: >60 <40HDL Female: >60 <50LDL <100 130-159 >160LDL NEAR OPTIMAL IS 100-129 VLDL (test code=VLDL) 34 mg/dL 5-40 LDL/HDL (test code=LDLPHDL) 3 POC Glucose, [id number] 20:03:00 Test Item Value Reference Range Comments POC Glucose (test 221 mg/dL 70-115 If you consider your patient code=POCGLUC) critically ill, the [place] Accu-Chek InformII metershould not be used for Glucose determinations.Draw a venous Glucose and send to the Main Lab for Analysis. POC Glucose, [id number] 16:47:00 Test Item Value Reference Range Comments POC Glucose (test 304 mg/dL 70-115 If you consider your patient code=POCGLUC) critically ill, the [place] Accu-Chek InformII metershould not be used for Glucose determinations.Draw a venous Glucose and send to the Main Lab for Analysis. POC Glucose, [id number] 15:20:00 Test Item Value Reference Range Comments POC Glucose (test 368 mg/dL 70-115 If you consider your patient code=POCGLUC) critically ill, the [place] Accu-Chek InformII metershould not be used for Glucose determinations.Draw a venous Glucose and send to the Main Lab for Analysis. [id number] 08:27:00 Test Item Value Reference Range Comments Amphetamine (test Negative Negative For diagnostic purposes code=AMPH) only, positive results should always be assessedin conjunctionwith the patient's medical history,clinical examination and otherfindings.To fulfill legal requirements, a more specific alternate chemical methodmust be used inorder to obtain a Confirmed analytical result. GC/MS is the preferred confirmatory method. Barbiturates (test Negative Negative code=MARYLIN) Benzodiazepine (test Negative Negative code=DEVON) Cocaine (test code=COCA) Negative Negative Methadone (test code=MTHD) Negative Negative Opiates (test code=OPIA) Negative Negative PCP (test code=PCP) Negative Negative Propoxyphene (test Negative Negative code=PROPOX) THC (test code=THC) Negative Negative Alcohol, Urine (test <0.01 g/dL 0.00-0.01 code=ETOHU) Urinalysis [id number] 07:59:00 Test Item Value Reference Range Comments Color (test code=COLOR) Yellow Yellow,Straw,Pl yellow Clarity (test code=CLAR) Clear Clear Specific [place] (test code=SPGR) 1.026 1.001-1.035 pH (test code=PH) 6.0 5.0-9.0 Ketone (test code=KET) Negative mg/dL Negative Glucose (test code=GLUCUR) 1000 mg/dL Negative Protein (test code=PROT) 25 mg/dL Negative Bilirubin (test code=BILI) Negative mg/dL Negative Occult Blood (test code=UDOB) Moderate Negative Urobilinogen (test code=UROB) 0.2 mg/dL 0.2-1.0 Nitrite (test code=NIT) Negative Negative Leuk Esterase (test code=LEUK) Negative Negative Micros Exam (test code=MEXAM) Indicated Epithelial Cells (test code=EPI) 6-9 /LPF 0-30 WBC, Urine (test code=UWBC) 3-5 /HPF 0-5 RBC, Urine (test code=URBC) 0-3 /HPF 0-5 Bacteria (test code=BACT) Few /HPF POC Glucose, [id number] 07:23:00 Test Item Value Reference Range Comments POC Glucose (test 174 mg/dL 70-115 If you consider your patient code=POCGLUC) critically ill, the Dnaial Accu-Chek InformII metershould not be used for Glucose determinations.Draw a venous Glucose and send to the Main Lab for Analysis. [id number] 06:52:00 Test Item Value Reference Range Comments Acetone [Serum] (test code=ACETONE) Negative Negative Comprehensive Metabolic [id number] 06:19:00 Test Item Value Reference Range Comments Sodium (test code=NA) 134 mmol/L 135-145 Potassium (test code=K) 3.9 mmol/L 3.5-5.1 Chloride (test code=CL) 96 mmol/L 98-105 Carbon Dioxide (test 26 mmol/L 22-29 code=CO2) Glucose (test code=GLU) 362 mg/dL 70-115 Blood Urea Nitrogen 20 mg/dL 6-20 (test code=BUN) Creatinine (test 1.1 mg/dL 0.7-1.2 code=CREAT) Calcium (test code=CA) 9.2 mg/dL 8.3-10.5 Prot Total (test 7.6 g/dL 6.4-8.3 code=TP) Albumin (test code=ALB) 4.0 g/dL 3.5-5.2 A/G Ratio (test 1.1 Ratio code=AGRATIO) Globulin (test 3.6 2.9-3.1 code=GLOB) Bili Total (test 0.2 mg/dL 0.1-0.9 code=TBIL) Alk Phos (test 141 U/L 40-129 code=APHOS) AST (test code=AST) 8 U/L 1-40 ALT (test code=ALT) 9 U/L 1-41 BUN/Creatinine Ratio 18.2 (test code=BCRATIO) Anion Gap (test 12 mmol/L 7-16 code=AGAP) Estimated GFR (test >60 eGFR (estimated Glomerular code=GFR) mL/min/1.73m2 Filtration Rate) is an estimated value,calculated from the patient's serum creatinine using the MDRD equation.It is NOT the patient's actual GFR. The eGFR provides a more clinicallyuseful measure of kidney disease than serum creatinine alone.This calculation takes sex and race into account, if the informationis provided. If the race is not provided, and the patient isAfrican-Maltese, multiply by 1.212. If sex is not provided, and thepatient is female, multiply by 0.742. Results for patients <18 years ofage have not been validated by the MDRD study and should be interpretedwith caution.eGFR Result Interpretation:eGFR > or=60 is in the Normal RangeeGFR < 60 may mean kidney diseaseeGFR < 15 may mean kidney failureRanges recommended by the National Kidney Foundation,http://nkdep.ni h.gov CBC with [id number] 06:00:00 Test Item Value Reference Range Comments WBC (test code=WBC) 15.8 K/cumm 4.4-10.5 RBC (test code=RBC) 4.83 M/cumm 4.10-5.70 Hemoglobin (test code=HGB) 11.9 gm/dL 13.4-17.4 Hematocrit (test code=HCT) 37.5 % 38.7-52.0 MCV (test code=MCV) 77.7 fL 80-100 MCH (test code=MCH) 24.6 pg 27.0-32.5 MCHC (test code=MCHC) 31.6 g/dL 32.0-37.5 RDW (test code=RDW) 14.9 % 11.5-14.5 Platelet Count (test code=PLTCT) 418 K/cumm 140-440 MPV (test code=MPV) 7.2 fL Diff Method (test code=DIFFM) Auto Neutrophil (test code=NEUT) 72.8 % 36-70 Lymphocyte (test code=LYMPH) 19.5 % 12-44 Monocyte (test code=MONO) 5.5 % 0-11 Eosinophil (test code=EOS) 1.8 % 0-7 Basophil (test code=BASO) 0.4 % 0-2 Neutro Abs (test code=ANEUT) 11.5 K/cumm 1.6-7.4 Lymph Abs (test code=ALYMPH) 3.1 K/cumm 0.5-4.6 [place] Abs (test code=AMONO) 0.9 K/cumm 0.0-1.2 Eos Abs (test code=AEOS) 0.29 K/cumm 0.00-0.74 Baso Abs (test code=ABASO) 0.1 K/cumm 0.00-0.21 POC Glucose, [id number] 05:52:00 Test Item Value Reference Range Comments POC Glucose (test 342 mg/dL 70-115 If you consider your patient code=POCGLUC) critically ill, the Danial Accu-Chek InformII metershould not be used for Glucose determinations.Draw a venous Glucose and send to the Main Lab for Analysis.
[2017-12-01] MEDS ORDERED: LIDOCAINE 1% W/EPI 1:100,000 MDV 50 ML VIAL ONE (18:26)
[2017-12-01 18:51] LABS: Absolute Lymphocytes (CBC) 2.4 K/uL (0.7-4.9); Absolute Monocytes 0.9 K/uL (0.1-1.3); Absolute Neutrophil 9.2 K/uL (1.8-8.0); Basophils % 0.7 % (0-1.3); Eosinophils % 0.4 % (0-4.4); Hematocrit 40.2 % (39.6-49.0); MCH 22.1 pg (27.0-35.0); MCV 70.3 fL (80-100); MPV 8.2 fL (7.6-11.3); Monocytes % 6.9 % (3.3-12.3); RBC Red Blood Cell Count 5.71 M/uL (4.33-5.43)
[2017-12-01 18:54] LABS: Protime INR 0.97
[2017-12-01] MEDS: INSULIN -REGULAR HUMAN 50 UNIT/0.5 ML ML SQ SCH (19:00)
[2017-12-01 19:01] LABS: Bicarbonate 25 mEq/L (21-31); Potassium 4.9 mEq/L (3.6-5.0); Sodium Level 133 mEq/L (135-145)
[2017-12-01 19:03] LABS: Barbiturates NEGATIVE; Benzodiazepines NEGATIVE; Cocaine NEGATIVE; METHAMPHETAM NEGATIVE; Opiates NEGATIVE; Phencyclidine NEGATIVE; THC Cannibis NEGATIVE
[2017-12-01 19:06] LABS: ALT/SGPT 20 IU/L (10-60); AST/SGOT 19 IU/L (10-42); Albumin 3.8 g/dL (3.2-5.5); Alkaline Phosphatase 131 IU/L (42-121); BUN Blood Urea Nitrogen 22 mg/dL (6-20); Bilirubin Direct 0.1 mg/dL (0-0.2); Bilirubin Total 0.5 mg/dL (0.3-1.2); Glomerular Filtration Rate 68 mL/min (=/>90); Protein, Total 7.8 g/dL (6.0-8.3)
[2017-12-01 19:16] LABS: Alcohol Serum/Plasma < 10 mg/dl; Salicylates Level < 4.0 mg/dl (<30)
[2017-12-01 19:18] LABS: Glucose Level 484 mg/dL (65-120)
[2017-12-01] MEDS ORDERED: NA CHLORIDE 0.9% 1,000 ML ONE (19:20)
[2017-12-01] MEDS ORDERED: DOXYCYCLINE 100 MG CAP PO ONE (19:20)
[2017-12-01] MEDS ORDERED: SMZ./TMP. 800/160 MG TABLET ONE (19:20)
[2017-12-01] MEDS ORDERED: INSULIN -REGULAR HUMAN 50 UNIT/0.5 ML ML ONE ×2 (19:25→21:29)
--- NOTE | 2017-12-01 19:46 | EDPHYS ---
Physician Documentation [facility] Name: Rudy Mcdowell Age: 32 yrs Sex: Male : 1985 Arrival Date: 12/01/2017 Time: 17:59 Bed 17 Private MD: ED Physician Edward Rosas HPI: 12/01 18:08 This 32 yrs old Male presents to ER via Unassigned with complaints of Suicidal cici Ideation. 18:08 The patient presents to the emergency department with depression, suicide ideation, and cici the patient has a plan, to shoot self. Onset: The symptoms/episode began/occurred 2 day(s) ago. Past psychiatric history: Prior diagnosis: depression. Associated signs and symptoms: The patient has no apparent associated signs or symptoms. Severity of symptoms: At their worst the symptoms were mild moderate in the emergency department the symptoms are unchanged. The patient has not experienced similar symptoms in the past. Historical: - Allergies: 18:19 clindamycin HCl; tl3 18:19 Demerol; tl3 18:19 Morphine; tl3 18:19 VANCOMYCIN AND DERIVATIVES; tl3 - Home Meds: 18:19 Latuda 120 mg oral tab once daily [Active]; gabapentin 800 mg oral tab 1 tab daily tl3 [Active]; - PMHx: 23:44 Bipolar disorder; Diabetes - IDDM; Schizophrenia; tl3 - Immunization history:: Adult Immunizations up to date. - Social history:: Smoking status: Patient uses tobacco products, denies chronic smoking, but will smoke occasionally, Patient/guardian denies using alcohol, street drugs. - Family history:: not pertinent. ROS: 18:08 Constitutional: Negative for fever, chills, and weight loss, Eyes: Negative for injury, cici pain, redness, and discharge, ENT: Negative for injury, pain, and discharge, Neck: Negative for injury, pain, and swelling, Cardiovascular: Negative for chest pain, palpitations, and edema, Respiratory: Negative for shortness of breath, cough, wheezing, and pleuritic chest pain, Abdomen/GI: Negative for abdominal pain, nausea, vomiting, diarrhea, and constipation, Back: Negative for injury and pain, : Negative for injury, bleeding, discharge, and swelling, MS/Extremity: Negative for injury and deformity, Neuro: Negative for headache, weakness, numbness, tingling, and seizure, Allergy/Immunology: Negative for hives, rash, and allergies, Endocrine: Negative for neck swelling, polydipsia, polyuria, polyphagia, and marked weight changes, Hematologic/Lymphatic: Negative for swollen nodes, abnormal bleeding, and unusual bruising. 18:08 Skin: Positive for abscess, erythema, swelling, of the suprapubic area. Exam: 18:08 Constitutional: This is a well developed, well nourished patient who is awake, alert, cici and in no acute distress. Head/Face: Normocephalic, atraumatic. Eyes: Pupils equal round and reactive to light, extra-ocular motions intact. Lids and lashes normal. Conjunctiva and sclera are non-icteric and not injected. Cornea within normal limits. Periorbital areas with no swelling, redness, or edema. ENT: Nares patent. No nasal discharge, no septal abnormalities noted. Tympanic membranes are normal and external auditory canals are clear. Oropharynx with no redness, swelling, or masses, exudates, or evidence of obstruction, uvula midline. Mucous membranes moist. Neck: Trachea midline, no thyromegaly or masses palpated, and no cervical lymphadenopathy. Supple, full range of motion without nuchal rigidity, or vertebral point tenderness. No Meningismus. Chest/axilla: Normal chest wall appearance and motion. Nontender with no deformity. No lesions are appreciated. Cardiovascular: Regular rate and rhythm with a normal S1 and S2. No gallops, murmurs, or rubs. Normal PMI, no JVD. No pulse deficits. Respiratory: Lungs have equal breath sounds bilaterally, clear to auscultation and percussion. No rales, rhonchi or wheezes noted. No increased work of breathing, no retractions or nasal flaring. Abdomen/GI: Soft, non-tender, with normal bowel sounds. No distension or tympany. No guarding or rebound. No evidence of tenderness throughout. Back: No spinal tenderness. No costovertebral tenderness. Full range of motion. Male : Normal genitalia with no discharge or lesions. MS/ Extremity: Pulses equal, no cyanosis. Neurovascular intact. Full, normal range of motion. Neuro: Awake and alert, GCS 15, oriented to person, place, time, and situation. Cranial nerves II-XII grossly intact. Motor strength 5/5 in all extremities. Sensory grossly intact. Cerebellar exam normal. Normal gait. 18:08 Skin: abscess, that is small, approximately 3 cm(s), cellulitis, that is mild, induration, that is mild is noted, injury, is not appreciated. Vital Signs: 17:50 BP 133 / 120; Pulse 118; Resp 14; Temp 98.8; Pulse Ox 100% ; Weight 108.86 kg; Height 5 tl3 ft. 9 in. (175.26 cm); 19:35 BP 154 / 111; Pulse 139; Resp 22; Temp 98; Pulse Ox 100% ; tl3 17:50 Body Mass Index 35.44 (108.86 kg, 175.26 cm) tl3 MDM: 18:01 Patient medically screened. [facility] 18:19 Data reviewed: vital signs, nurses notes, lab test result(s). [facility] 12/01 18:08 Order name: Acetaminophen [facility] 12/01 18:08 Order name: Basic Metabolic Panel [facility] 12/01 18:08 Order name: CBC with Diff [facility] 12/01 18:08 Order name: ETOH Level [facility] 12/01 18:08 Order name: Hepatic Function [facility] 12/01 18:08 Order name: PT-INR [facility] 12/01 18:08 Order name: Ptt, Activated [facility] 12/01 18:08 Order name: Salicylate [facility] 12/01 18:08 Order name: Urine Drug Screen [facility] 12/01 18:43 Order name: Urine Dipstick--Ancillary (enter results) 12/01 18:56 Order name: Protime (+INR); Complete Time: 19:21 [facility] 12/01 18:56 Order name: PTT, Activated Partial Thromb; Complete Time: 19:21 [facility] 12/01 19:01 Order name: Basic Metabolic Panel; Complete Time: 19:21 [facility] 12/01 19:03 Order name: Urine Drug Screen; Complete Time: 19:21 [facility] 12/01 19:16 Order name: CBC with Automated Diff; Complete Time: 19:21 [facility] 12/01 19:18 Order name: Liver (Hepatic) Function; Complete Time: 19:21 [facility] 12/01 19:18 Order name: Acetaminophen Level; Complete Time: 19:21 [facility] 12/01 19:18 Order name: Alcohol Serum/Plasma; Complete Time: 19:21 [facility] 12/01 19:18 Order name: Salicylates Level; Complete Time: 19:21 [facility] 12/01 20:50 Order name: Urine Dipstick-Ancillary; Complete Time: 20:52 [facility] 12/01 18:08 Order name: EKG; Complete Time: 18:09 cici 12/01 18:08 Order name: EKG - Nurse/Tech; Complete Time: 21:44 [facility] 12/01 18:08 Order name: IV Saline Lock; Complete Time: 21:45 [facility] 12/01 18:08 Order name: Labs collected and sent; Complete Time: 21:45 [facility] 12/01 18:08 Order name: Urine Dipstick-Ancillary (obtain specimen); Complete Time: 21:45 [facility] 12/01 18:08 Order name: Dressing - Wound; Complete Time: 18:54 [facility] 12/01 18:08 Order name: Gloves, Sterile; Complete Time: 18:55 [facility] 12/01 18:08 Order name: Setup Suture Tray; Complete Time: 18:55 [facility] 12/01 20:54 Order name: Blood Glucose Level; Complete Time: 21:21 cici Administered Medications: 19:15 Drug: Lidocaine-Epinephrine -1%: (1:100,000) 10 ml {Note: given by Dr. Rosas.} jd3 Volume: 20 ml; Route: Infiltration; 23:31 Follow up: Response: No adverse reaction tl3 19:27 Drug: Bactroban Ointment 2 % 1 application Route: Topical; Site: affected area; tl3 22:26 Follow up: Response: No adverse reaction tl3 19:28 Drug: Insulin Regular Human 10 units {Co-Signature: tc3 (Maria Luz Rosenberg RN).} Route: tl3 Sub-Q; Site: right upper arm; 23:30 Follow up: Response: No adverse reaction tl3 19:28 Drug: Doxycycline 200 mg Route: PO; tl3 23:31 Follow up: Response: No adverse reaction tl3 19:28 Drug: Bactrim (160 mg-800 mg (DS) 1 tablet Route: PO; tl3 23:32 Follow up: Response: No adverse reaction tl3 19:30 Drug: Insulin Regular Human 10 units {Co-Signature: tc3 (Maria Luz Rosenberg RN).} Route: tl3 IVP; Site: right antecubital; 23:29 Follow up: Response: No adverse reaction tl3 19:31 Drug: NS 0.9% 1000 ml Route: IV; Rate: 1 bolus; Site: right antecubital; tl3 23:40 Follow up: Response: No adverse reaction; IV Status: Completed infusion; IV Intake: tl3 1000ml 20:30 Drug: NS 0.9% 1000 ml Route: IV; Rate: 1 bolus; Site: right forearm; jd3 23:41 Follow up: Response: No adverse reaction; IV Status: Completed infusion; IV Intake: tl3 1000ml 21:20 Drug: hydrALAZINE 10 mg Route: PO; tl3 22:25 Follow up: Response: No adverse reaction tl3 23:21 [facility] Insulin Regular Human 7 jd3 units IVP once 23:22 CANCELLED (given by floor nurse and [facility] Levemir 100 unit/mL 35 jd3 units Sub-Q once Disposition: 12/01/17 19:46 Hospitalization ordered by Sherice Cantu for Inpatient Admission. Preliminary diagnosis are Fever, unspecified, Type 2 diabetes mellitus, Suicidal ideations, Cutaneous abscess of abdominal wall, Major depressive disorder, recurrent. - Bed requested for Intensive Care Unit. - Status is Inpatient Admission. jd3 - Condition is Stable. - Problem is new. - Symptoms have improved. UTI on Admission? No Signatures: Dispatcher [employer] EDMS Mona Do RN RN mw Anderson, Corey, MD MD cha Davies, Jonathon, RN RN jd3 Lowrey, Tammy, RN RN tl3 Maria Luz Rosenberg RN tc3 Corrections: (The following items were deleted from the chart) 23:21 20:57 Insulin Regular Human 7 units IVP once ordered. cici jd3 23:22 20:57 Levemir 100 unit/mL 35 units Sub-Q once ordered. cici valdesd3 23:22 23:21 Levemir 100 unit/mL 35 units Sub-Q once ordered. jduyen jd3
--- NOTE | 2017-12-01 19:46 | ER ---
Nurse's Notes [facility] Name: Rudy Mcdowell Age: 32 yrs Sex: Male : 1985 Arrival Date: 12/01/2017 Time: 17:59 Bed 17 Private MD: Diagnosis: Fever, unspecified;Type 2 diabetes mellitus;Suicidal ideations;Cutaneous abscess of abdominal wall;Major depressive disorder, recurrent Presentation: 12/01 17:59 Acuity: SAVITA 2 tw2 18:00 Presenting complaint: EMS states: pt room 17, per [facility] with suicidal and homicidal tl3 ideation with a plan to use a gun, but has no access to a gun at home. Has abscess to abdomen and several small lesions to both legs. 18:08 Transition of care: patient was not received from another setting of care. Onset of tl3 symptoms was November 24, 2017. Care prior to arrival: None. 18:08 Method Of Arrival: EMS: [facility] tl3 Triage Assessment: 11:08 EENT: No signs and/or symptoms were reported regarding the EENT system. Neuro: Level of tl3 Consciousness is awake, alert, obeys commands, Oriented to person, place, time, situation, Appropriate for age. Cardiovascular: Heart tones S1 S2 present Capillary refill < 3 seconds. Respiratory: Airway is patent Trachea midline Breath sounds are clear bilaterally. GI: Abdomen is round Bowel sounds present X 4 quads. : No signs and/or symptoms were reported regarding the genitourinary system. Derm: No signs and/or symptoms reported regarding the dermatologic system. Musculoskeletal: No signs and/or symptoms reported regarding the musculoskeletal system. 17:50 Pain: Pain currently is 6 out of 10 on a pain scale. tl3 Historical: - Allergies: 18:19 clindamycin HCl; tl3 18:19 Demerol; tl3 18:19 Morphine; tl3 18:19 VANCOMYCIN AND DERIVATIVES; tl3 - Home Meds: 18:19 Latuda 120 mg oral tab once daily [Active]; gabapentin 800 mg oral tab 1 tab daily tl3 [Active]; - PMHx: 23:44 Bipolar disorder; Diabetes - IDDM; Schizophrenia; tl3 - Immunization history:: Adult Immunizations up to date. - Social history:: Smoking status: Patient uses tobacco products, denies chronic smoking, but will smoke occasionally, Patient/guardian denies using alcohol, street drugs. - Family history:: not pertinent. Screenin:50 Abuse screen: Denies threats or abuse. Nutritional screening: No deficits noted. tl3 Tuberculosis screening: No symptoms or risk factors identified. Fall Risk None identified. Assessment: 17:50 General: Appears comfortable, obese, well groomed, well developed, well nourished, tl3 Behavior is cooperative, anxious. Pain: Complains of pain in abdomen Pain currently is 6 out of 10 on a pain scale. Neuro: Level of Consciousness is awake, alert, obeys commands, Oriented to person, place, time, situation, Appropriate for age. Cardiovascular: Heart tones S1 S2 present Capillary refill < 3 seconds. Respiratory: Airway is patent Trachea midline Breath sounds are clear. GI: Bowel sounds present X 4 quads. Reports. : No signs and/or symptoms were reported regarding the genitourinary system. EENT: No signs and/or symptoms were reported regarding the EENT system. Derm: Abscess. Musculoskeletal: No signs and/or symptoms reported regarding the musculoskeletal system. 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 Stated that if he would have had access to a gun today that he would have killed his family and himself. 19:00 Reassessment: Patient appears in no apparent distress at this time. No changes from tl3 previously documented assessment. Patient is alert, oriented x 3, equal unlabored respirations, skin warm/dry/pink. pt resting quietly. 19:15 Reassessment: Patient appears in no apparent distress at this time. No changes from tl3 previously documented assessment. Patient is alert, oriented x 3, equal unlabored respirations, skin warm/dry/pink. pt upset after speaking with physician. 20:00 Reassessment: charting continued in [facility]. [facility] Psych: 17:50 Subjective: Patient's mood is sad. Objective: Patient is cooperative. Interventions: tl3 Removed personal items and placed in bag. Patient placed in hospital gown. Urine collected and sent for urine drug test. Belonging list filled out. Suicide Risk Assessment: Sad Person Scale: Depression: Score 0 point if signs of depression are not present. Safety Checks: Personal items have been removed. Door is open. No visitors are present at this time. Pt denies substance abuse. 17:50 Commitment: Patient will be a voluntary commitment. tl3 Vital Signs: 17:50 BP 133 / 120; Pulse 118; Resp 14; Temp 98.8; Pulse Ox 100% ; Weight 108.86 kg; Height 5 tl3 ft. 9 in. (175.26 cm); 19:35 BP 154 / 111; Pulse 139; Resp 22; Temp 98; Pulse Ox 100% ; tl3 17:50 Body Mass Index 35.44 (108.86 kg, 175.26 cm) tl3 ED Course: 17:50 No apparent distress. tl3 17:50 Patient has correct armband on for positive identification. Placed in gown. Bed in low tl3 position. Call light in reach. Side rails up X2. Adult w/ patient. cruise director on. Pulse ox on. NIBP on. Sitter at bedside. Door closed. Lights dimmed. Warm blanket given. One-on-one care X 15 minutes. 17:50 Inserted saline lock: 22 gauge in left antecubital area, using aseptic technique. tl3 17:50 Initial lab(s) drawn, by mo, sent to lab. Urine collected: clean catch specimen, clear. tl3 17:59 Patient arrived in ED. tw2 17:59 Triage completed. tw2 17:59 Sara Lopez, ASHLEY is Primary Nurse. tl3 18:00 Ewdard Rosas MD is Attending Physician. cici 18:54 Urine Dipstick--Ancillary (enter results) Sent. tl3 19:17 Notified ED physician of a critical lab result(s). glucose of 484. fc 19:33 Safety Checks: Personal items have been removed The door is open or patient has been tl3 placed in a hallway bed/chair. 19:44 Sherice Cantu MD is Hospitalizing Provider. cici 21:21 Assist provider with I \T\ D: of an abscess on abdominal. tl3 21:45 Acetaminophen Sent. tl3 21:45 Basic Metabolic Panel Sent. tl3 21:45 CBC with Diff Sent. tl3 21:45 ETOH Level Sent. tl3 21:45 Hepatic Function Sent. tl3 21:45 PT-INR Sent. tl3 21:45 Ptt, Activated Sent. tl3 21:45 Salicylate Sent. tl3 23:44 Arm band placed on right wrist. tl3 23:45 Urine Drug Screen Sent. tl3 12/02 00:13 Patient admitted, IV remains in place. jd3 Administered Medications: 12/01 19:15 Drug: Lidocaine-Epinephrine -1%: (1:100,000) 10 ml {Note: given by Dr. Rosas.} jd3 Volume: 20 ml; Route: Infiltration; 23:31 Follow up: Response: No adverse reaction tl3 19:27 Drug: Bactroban Ointment 2 % 1 application Route: Topical; Site: affected area; tl3 22:26 Follow up: Response: No adverse reaction tl3 19:28 Drug: Insulin Regular Human 10 units {Co-Signature: tc3 (Maria Luz Rosenberg RN).} Route: tl3 Sub-Q; Site: right upper arm; 23:30 Follow up: Response: No adverse reaction tl3 19:28 Drug: Doxycycline 200 mg Route: PO; tl3 23:31 Follow up: Response: No adverse reaction tl3 19:28 Drug: Bactrim (160 mg-800 mg (DS) 1 tablet Route: PO; tl3 23:32 Follow up: Response: No adverse reaction tl3 19:30 Drug: Insulin Regular Human 10 units {Co-Signature: tc3 (Maria Luz Rosenberg RN).} Route: tl3 IVP; Site: right antecubital; 23:29 Follow up: Response: No adverse reaction tl3 19:31 Drug: NS 0.9% 1000 ml Route: IV; Rate: 1 bolus; Site: right antecubital; tl3 23:40 Follow up: Response: No adverse reaction; IV Status: Completed infusion; IV Intake: tl3 1000ml 20:30 Drug: NS 0.9% 1000 ml Route: IV; Rate: 1 bolus; Site: right forearm; jd3 23:41 Follow up: Response: No adverse reaction; IV Status: Completed infusion; IV Intake: tl3 1000ml 21:20 Drug: hydrALAZINE 10 mg Route: PO; tl3 22:25 Follow up: Response: No adverse reaction tl3 23:21 CANCELLED (given by floor nurse and documented in [facility] [facility] [employer]): Insulin Regular Human 7 jd3 units IVP once 23:22 CANCELLED (given by floor nurse and documented in [facility] [facility] [employer]): Levemir 100 unit/mL 35 jd3 units Sub-Q once Intake: 23:40 IV: 1000ml; Total: 1000ml. tl3 23:41 IV: 1000ml; Total: 2000ml. tl3 Outcome: 19:46 Decision to Hospitalize by Provider. cici 23:42 Condition: stable tl3 12/02 00:12 Admitted to ICU accompanied by nurse, via wheelchair, room 8, with chart, Other taken jd3 up to ICU by Nimco RAMIREZ floor nurse taking care of ICU hold pt in the ER Instructed on the need for admit, Demonstrated understanding of instructions. 00:19 Patient left the ED. jd3 Signatures: Edward Rosas MD MD cha Chretien, Felicia, RN RN fc Edie Boyd RN RN tw2 Kushal Blum RN RN jd3 Sara Loepz RN RN tl3 Maria Luz Rosenberg RN tc3 Corrections: (The following items were deleted from the chart) 12/01 18:12 18:00 Presenting complaint: EMS states: pt room 17, per [facility] with suicidal and tl3 homicidal ideation with a plan to use a gun. tl3 18:41 11:08 General: Appears in no apparent distress. well groomed, well developed, well tl3 nourished, Behavior is calm, cooperative, appropriate for age, tl3 18:43 11:08 Pain: Pain currently is 6 out of 10 on a pain scale. tl3 tl3 18:43 11:08 EENT: No signs and/or symptoms were reported regarding the EENT system. tl3 tl3 18:43 17:50 General: Appears in no apparent distress. well groomed, well developed, well tl3 nourished, Behavior is calm, cooperative, appropriate for age, tl3 23:40 23:29 Response: No adverse reaction; IV Intake: 1000ml tl3 tl3 23:41 23:29 Response: No adverse reaction; IV Intake: 1000ml tl3 tl3
[2017-12-01] MEDS ORDERED: D50W 25 GM/50 ML SYRINGE IV PRN ×2 (19:52)
[2017-12-01] MEDS ORDERED: GLUCAGON 1 MG/VIAL IM PRN ×2 (19:52)
[2017-12-01] MEDS: NA CHLORIDE 0.9% 1,000 ML IV SCH (20:00)
[2017-12-01 20:49] LABS: Urine Blood TRACE (NEG); Urine Glucose 3+ (NEG); Urine Protein 1+ (NEG); Urine Specific Gravity 1.015 (1.005-1.030)
[2017-12-01] MEDS: MUPIROCIN 2% OINT 22GM TUBE TOP SCH (21:00)
[2017-12-01] MEDS: DOXYCYCLINE 100 MG CAP PO SCH (21:00)
[2017-12-01] MEDS: LURASIDONE HCL PO SCH (21:00)
[2017-12-01] MEDS: SMZ./TMP. 800/160 MG TABLET PO SCH (21:00)
[2017-12-01] MEDS ORDERED: HYDRALAZINE HCL 10 MG TABLET ONE (21:32)
[2017-12-01] MEDS ORDERED: ENOXAPARIN 100 MG/ML SYR SQ ONE (21:33)
--- NOTE | 2017-12-01 22:15 | P.HP ---
Certification for Inpatient Patient admitted to: Inpatient With expected LOS: >2 Midnights Practitioner: I am a practitioner with admitting privileges, knowledge of patient current condition, hospital course, and medical plan of care. Services: Services provided to patient in accordance with Admission requirements found in Title 42 Section 412.3 of the Code of Federal Regulations Patient History Date of Service: 12/01/17 Reason for admission: suicidal ideation History of Present Illness: Mr Mcdowell is a 32 years old male with history of schizoafective disorder, depression, DM II, HTN, right BKA due to osteomyelitis, who start a few days ago with a bump in his lower abdomen. He squeezed, and then he noticed that it start to grow and become painful. He denied fever or chills. He has had similar lesions in his lower extremities. He had an appointment with his PCP today, but he got an argument with his mother, and start having suicidal thoughts. He actually has a plan, which is get a gun and kill himself. At the time of my examination, he had already an I&D in ER, and was very stressful. Allergies clindamycin Adverse Reaction (Verified 12/01/17 21:44) Nausea/Vomiting meperidine [From Demerol] Adverse Reaction (Verified 12/01/17 21:44) Nausea/Vomiting morphine Adverse Reaction (Verified 12/01/17 21:44) Nausea/Vomiting vancomycin Adverse Reaction (Verified 12/01/17 21:44) Nausea/Vomiting Home Medications: Gabapentin 800 mg PO TID 09/27/16 Lisinopril [Zestril] 20 mg PO DAILY 07/24/17 Lurasidone HCl [Latuda] 1 tab PO BEDTIME 08/12/17 Bupropion *Xl* [Wellbutrin XL] 300 mg PO DAILY 12/01/17 Clonazepam [Klonopin] 1 mg PO TID 12/01/17 Duloxetine HCl 60 mg PO DAILY 12/01/17 Hydrocodone Bit/Acetaminophen [Hydrocodon-Acetaminophn 10-325] 1 each PO TID PRN 12/01/17 Insulin 70/30 NPH/Reg Human [Novolin 70/30*] 40 unit SQ DAILY 12/01/17 Insulin 70/30 NPH/Reg Human [Novolin 70/30*] 60 unit SQ BEDTIME 12/01/17 Omeprazole [Prilosec] 40 mg PO DAILY WITH BREAKFAST 12/01/17 Pregabalin [Lyrica] 75 mg PO TID 12/01/17 Zolpidem Tartrate [Ambien] 10 mg PO BEDTIME PRN PRN 12/01/17 - Past Medical/Surgical History Diabetic: Yes -: Bipolar disorder -: Diabetes mellitus type 2 -: Schizoaffective disorder -: History of osteomyelitis leading to right partial foot amputation -: Tobacco abuse -: Marijuana use -: Diabetic neuropathy -: Right foot amputation -: Circumcision Psychosocial/ Personal History: The patient is single. He has no children. The patient is disabled. - Family History Mother -: Diabetes Father -: Diabetes Brother -: Diabetes - Social History Smoking Status: Heavy Tobacco smoker (>10 cigarettes/day) Counseled patient to stop smoking for: less than 10 minutes Alcohol use: No CD- Drugs: No Caffeine use: Yes Review of Systems 10-point ROS is otherwise unremarkable Physical Examination - Physical Exam General: Alert, In no apparent distress HEENT: Atraumatic, PERRLA, Mucous membr. moist/pink, EOMI, Sclerae nonicteric Neck: Supple, 2+ carotid pulse no bruit, No LAD, Without JVD or thyroid abnormality Respiratory: Clear to auscultation bilaterally, Normal air movement Cardiovascular: Regular rate/rhythm, Normal S1 S2 Gastrointestinal: Normal bowel sounds, No tenderness Musculoskeletal: No tenderness Integumentary: Skin lesion (lower abdomen), Other (right BKA) Neurological: Normal speech, Normal strength at 5/5 x4 extr, Normal tone, Normal affect Lymphatics: No axilla or inguinal lymphadenopathy - Studies Laboratory Data (last 24 hrs) 12/01/17 18:30: PT 11.5, INR 0.97, APTT 31.0 12/01/17 18:30: WBC 12.7 H, Hgb 12.6 L, Hct 40.2, Plt Count 335 12/01/17 18:30: Sodium 133 L, Potassium 4.9, BUN 22 H, Creatinine 1.22, Glucose 484 H*, Total Bilirubin 0.5, AST 19, ALT 20, Alkaline Phosphatase 131 H Assessment and Plan - Problems (Diagnosis) (1) Abdominal wall abscess Current Visit: Yes Status: Acute (2) Nicotine dependence Current Visit: No Status: Acute Qualifiers: Nicotine product type: cigarettes Substance use status: unspecified nicotine-induced disorder Qualified Code(s): F17.219 - Nicotine dependence, cigarettes, with unspecified nicotine-induced disorders (3) Suicidal behavior Onset Date: 07/24/17 Current Visit: No Status: Acute Qualifiers: Attempted self-injury: without attempted self-injury Qualified Code(s): R46.89 - Other symptoms and signs involving appearance and behavior (4) Bipolar 1 disorder Onset Date: 09/27/16 Current Visit: No Status: Chronic (5) Complete below knee amputation of right lower extremity Onset Date: 07/24/17 Current Visit: No Status: Chronic Qualifiers: Encounter type: subsequent encounter Qualified Code(s): S88.111D - Complete traumatic amputation at level between knee and ankle, right lower leg, subsequent encounter (6) Diabetes mellitus Onset Date: 09/27/16 Current Visit: No Status: Chronic Qualifiers: Diabetes mellitus type: type 2 Diabetes mellitus detention insulin use: without detention use Diabetes mellitus complication status: with unspecified complications Qualified Code(s): E11.8 - Type 2 diabetes mellitus with unspecified complications (7) Schizoaffective disorder Onset Date: 09/27/16 Current Visit: No Status: Chronic Qualifiers: Schizoaffective disorder type: other Qualified Code(s): F25.8 - Other schizoaffective disorders - Plan The patient will be admitted to ICU with suicidal precautions, will call for involuntary jail. The patient has several medication allergies including vancomycin. Will order Linezolid and levaquin IV. Consult Dr Mosqueda for further recommendations. The patient will benefit to be transferred to an inpatient psych unit when clinically stable for psych stabilization. - Advance Directives Does patient have a Living Will: No Does patient have a Durable POA for Healthcare: No - Code Status/Comfort Care Code Status Assessed: Yes Code Status: Full Code
[2017-12-01] MEDS ORDERED: INSULIN DETEMIR 100 UNIT/1 ML INSULIN SQ ONE (22:35)
[2017-12-01] MEDS: HYDROCODONE/APAP 10/325 TAB PO PRN (22:40)
[2017-12-02] MEDS: PREGABALIN 75 MG CAP PO SCH ×4 (00:56→21:12)
[2017-12-02] MEDS: NA CHLORIDE 0.9% 1,000 ML IV SCH ×3 (00:56→21:10)
[2017-12-02 03:46] VITALS: O2SAT 98; BMI 33.0
[2017-12-02] MEDS: INSULIN -REGULAR HUMAN 50 UNIT/0.5 ML ML SQ SCH ×4 (08:16→21:00)
[2017-12-02] MEDS: INSULIN DETEMIR 100 UNIT/1 ML INSULIN SQ SCH (08:16)
[2017-12-02] MEDS: MUPIROCIN 2% OINT 22GM TUBE TOP SCH ×3 (09:00→23:36)
[2017-12-02] MEDS: SMZ./TMP. 800/160 MG TABLET PO SCH ×2 (10:45→21:12)
[2017-12-02 10:56] LABS: Potassium 4.3 mEq/L (3.6-5.0)
[2017-12-02 10:58] LABS: Absolute Lymphocytes (CBC) 2.7 K/uL (0.7-4.9); Absolute Monocytes 0.9 K/uL (0.1-1.3); Absolute Neutrophil 6.7 K/uL (1.8-8.0); Basophils % 0.7 % (0-1.3); Hematocrit 35.1 % (39.6-49.0); Lymphocytes % 25.6 % (15.3-44.8); MCH 22.7 pg (27.0-35.0); MCV 69.6 fL (80-100); Monocytes % 8.6 % (3.3-12.3); RBC Red Blood Cell Count 5.05 M/uL (4.33-5.43)
[2017-12-02] MEDS: DOXYCYCLINE 100 MG CAP PO SCH (11:46)
[2017-12-02 12:19] LABS: Platelet Estimate ADEQ
[2017-12-02 12:20] LABS: Anisocytosis SLIGHT; Blood Morphology Comment NOT SEEN (NOT SEEN)
[2017-12-02] MEDS: HYDROCODONE/APAP 10/325 TAB PO PRN ×2 (12:43→21:12)
[2017-12-02] MEDS ORDERED: CHLORHEXIDINE GLUCO 4% 120 ML TOP SCH (14:00)
--- NOTE | 2017-12-02 14:50 | CON ---
Date of Consultation: 12/01/2017 Reason: Infected wound, abdomen. History Of Present Illness: The patient is a 32-year-old gentleman with a history of schizoaffective disorder, depression, diabetes, hypertension, right below-knee amputation due to osteomyelitis, who few days ago he noticed a bump in the lower left abdomen and then he started to squeeze, it became mo re painful. He denies any fever or chills. He has had suicide ideations. He had an incision and dr lanier performed by Dr. Rosas last night. Currently, he does not complain of any pain. He is major ke, alert, in no acute distress. Review of Systems: Otherwise unremarkable. Past Medical History: Significant for bipolar disorder, diabetes, schizoaffective disorder, history of osteomyelitis, tobacco use, marijuana use, diabetic neuropathy. Past Surgical History: Right below-knee amputation and circumcision. Allergies: INCLUDE CLINDAMYCIN, MEPERIDINE, MORPHINE, AND VANCOMYCIN. Social History: He does smoke. He was counseled by the primary care physician. Denies drinking alc ohol. Family History: Significant for diabetes. Physical Examination: Vital Signs: Stable. He is afebrile. He is awake, alert, orient x3. Head and neck: Cranial nerves 2 through 12 grossly within normal limits. No neck masses. No JVD. Throat clear. Neck: Supple. Chest: Clear. Heart: S1, S2. Abdomen: Soft, nondistended. Positive bowel sounds. Positive infected wound in the left lower quad rant with approximately a 2 cm opening with packing, which was removed. I advised the nurses to cult ure the wound if they have not already done in the ER. There is surrounding erythema, warmth, and ed arturo. There is induration but there is no further fluctuance. Extremities: Adequately perfused. Nontender. Neurologic: Nonfocal. Laboratory Data: Shows a white count of 12.7 on admission and today is 10.4. There is no left shift . Assessment: A 32-year-old gentleman with multiple medical problems, infected wound, left abdomen, st atus post I and D, on antibiotics. Suicide ideation. Recommendations: We will culture the wound institute local wound care. He can be cleared for [facility] to be transferred to a psych facility as long as they can take care of the wound, which is a we t-to-dry normal saline dressing changes daily and obviously Adjust the antibiotics based on his cultu res and reconsult me pisabelle LANG/NAIMA Voice ID: [id number] Report ID: [id number]
[2017-12-02] MEDS: clonazePAM 1 MG TAB PO PRN (14:54)
--- NOTE | 2017-12-02 16:55 | P.SSS ---
Patient History Date of Service: 12/02/17 Primary Care Provider: None Reason for admission: suicidal ideation History of Present Illness: See HPI Allergies clindamycin Adverse Reaction (Verified 12/01/17 21:44) Nausea/Vomiting meperidine [From Demerol] Adverse Reaction (Verified 12/01/17 21:44) Nausea/Vomiting morphine Adverse Reaction (Verified 12/01/17 21:44) Nausea/Vomiting vancomycin Adverse Reaction (Verified 12/01/17 21:44) Nausea/Vomiting clindamycin HCl Allergy (Uncoded 12/02/17 00:54) Unknown VANCOMYCIN AND DERIV Allergy (Uncoded 12/02/17 00:54) Unknown Home Medications: Gabapentin 800 mg PO TID 09/27/16 Lisinopril [Zestril] 20 mg PO DAILY 07/24/17 Lurasidone HCl [Latuda] 1 tab PO BEDTIME 08/12/17 Bupropion *Xl* [Wellbutrin XL*] 300 mg PO DAILY 12/01/17 Clonazepam [Klonopin*] 1 mg PO TID 12/01/17 Duloxetine HCl 60 mg PO DAILY 12/01/17 Hydrocodone Bit/Acetaminophen [Hydrocodon-Acetaminophn 10-325] 1 each PO TID PRN 12/01/17 Insulin 70/30 NPH/Reg Human [Novolin 70/30*] 40 unit SQ DAILY 12/01/17 Insulin 70/30 NPH/Reg Human [Novolin 70/30*] 60 unit SQ BEDTIME 12/01/17 Omeprazole [Prilosec] 40 mg PO DAILY WITH BREAKFAST 12/01/17 Pregabalin [Lyrica*] 75 mg PO TID 12/01/17 Zolpidem Tartrate [Ambien*] 10 mg PO BEDTIME PRN PRN 12/01/17 Levofloxacin [Levaquin*] 500 mg PO DAILY #14 tab 12/02/17 Smz./Tmp. [Bactrim Ds 800 MG/160 MG*] 1 tab PO BID #28 tab 12/02/17 - Past Medical/Surgical History Has patient received pneumonia vaccine in the past: Yes Diabetic: Yes -: Bipolar disorder -: Diabetes mellitus type 2 -: Schizoaffective disorder -: History of osteomyelitis leading to right partial foot amputation -: Tobacco abuse -: Marijuana use -: Diabetic neuropathy -: Right foot amputation -: Circumcision Psychosocial/ Personal History: The patient is single. He has no children. The patient is disabled. - Family History Mother -: Diabetes Father -: Diabetes Brother -: Diabetes - Social History Smoking Status: Heavy Tobacco smoker (>10 cigarettes/day) Alcohol use: No CD- Drugs: No Caffeine use: Yes Place of Residence: Home Review of Systems General: As per HPI Physical Examination - Vital Signs Temperature: 98 F Blood Pressure: 125/61 Pulse: 100 Respirations: 15 Pulse Ox (%): 99 - Physical Exam General: Alert, In no apparent distress HEENT: Atraumatic, PERRLA, Mucous membr. moist/pink, EOMI, Sclerae nonicteric Neck: Supple, 2+ carotid pulse no bruit, No LAD, Without JVD or thyroid abnormality Respiratory: Clear to auscultation bilaterally, Normal air movement Cardiovascular: Regular rate/rhythm, Normal S1 S2 Gastrointestinal: Normal bowel sounds, No tenderness Musculoskeletal: No tenderness Integumentary: No rashes Neurological: Normal gait, Normal speech, Normal strength at 5/5 x4 extr, Normal tone, Normal affect Lymphatics: No axilla or inguinal lymphadenopathy Other Physical/Emotional Findings: Currently Sudicial - Studies Laboratory Data (last 24 hrs) 12/01/17 18:30: PT 11.5, INR 0.97, APTT 31.0 12/01/17 18:30: WBC 12.7 H, Hgb 12.6 L, Hct 40.2, Plt Count 335 12/01/17 18:30: Sodium 133 L, Potassium 4.9, BUN 22 H, Creatinine 1.22, Glucose 484 H*, Total Bilirubin 0.5, AST 19, ALT 20, Alkaline Phosphatase 131 H - Diagnosis (Problem(s)) (1) Abdominal wall abscess Onset Date: 12/02/17 Current Visit: Yes Status: Acute Plan: S/p I&D in the ER. -PO Bactrim and levaquin -Surgery consulted. No surgical Intervention -Medically cleared to transfer to psych. (2) Nicotine dependence Onset Date: 12/02/17 Current Visit: Yes Status: Chronic Qualifiers: Nicotine product type: cigarettes Substance use status: unspecified nicotine-induced disorder Qualified Code(s): F17.219 - Nicotine dependence, cigarettes, with unspecified nicotine-induced disorders (3) Suicidal behavior Onset Date: 07/24/17 Current Visit: Yes Status: Acute Qualifiers: Attempted self-injury: without attempted self-injury Qualified Code(s): R46.89 - Other symptoms and signs involving appearance and behavior (4) Bipolar 1 disorder Onset Date: 09/27/16 Current Visit: Yes Status: Chronic (5) Complete below knee amputation of right lower extremity Onset Date: 07/24/17 Current Visit: Yes Status: Chronic Qualifiers: Encounter type: subsequent encounter Qualified Code(s): S88.111D - Complete traumatic amputation at level between knee and ankle, right lower leg, subsequent encounter (6) Diabetes mellitus Onset Date: 09/27/16 Current Visit: Yes Status: Chronic Qualifiers: Diabetes mellitus type: type 2 Diabetes mellitus chcf insulin use: without chcf use Diabetes mellitus complication status: with unspecified complications Qualified Code(s): E11.8 - Type 2 diabetes mellitus with unspecified complications (7) Schizoaffective disorder Onset Date: 09/27/16 Current Visit: Yes Status: Chronic Qualifiers: Schizoaffective disorder type: other Qualified Code(s): F25.8 - Other schizoaffective disorders - Disposition Disposition: TRANSFR TO OTHER-PSY/CD/REHAB Condition: GOOD Diet: Regular Activity: Ad sina
[2017-12-02] MEDS ORDERED: levoFLOXacin 500 MG TAB PO SCH (17:00)
[2017-12-02] MEDS: LURASIDONE HCL PO SCH (21:12)
[2017-12-02] MEDS ORDERED: LORazepam 2 MG/ML VIAL IV ONE (23:10)
[2017-12-03] MEDS: NA CHLORIDE 0.9% 1,000 ML IV SCH (04:00)
[2017-12-03] MEDS: HYDROCODONE/APAP 10/325 TAB PO PRN ×2 (05:53→13:10)
[2017-12-03] MEDS: PREGABALIN 75 MG CAP PO SCH ×2 (08:03→13:13)
[2017-12-03] MEDS: INSULIN -REGULAR HUMAN 50 UNIT/0.5 ML ML SQ SCH ×2 (08:03→11:30)
[2017-12-03] MEDS: SMZ./TMP. 800/160 MG TABLET PO SCH (08:03)
[2017-12-03] MEDS: INSULIN DETEMIR 100 UNIT/1 ML INSULIN SQ SCH (08:04)
[2017-12-03] MEDS: MUPIROCIN 2% OINT 22GM TUBE TOP SCH (09:00)
[2017-12-03] MEDS: clonazePAM 1 MG TAB PO PRN (13:15)
--- NOTE | 2017-12-03 14:11 | P.PN ---
Subjective Date of Service: 12/03/17 Primary Care Provider: None Chief Complaint: suicidal ideation Subjective: Tolerating diet, Improving, Working w/ PT, Doing well Review of Systems General: As per HPI Physical Examination - Vital Signs Temperature: 97.6 F Blood Pressure: 99/74 Pulse: 88 Respirations: 15 Pulse Ox (%): 99 - Physical Exam General: Alert, In no apparent distress HEENT: Atraumatic, PERRLA, EOMI Neck: Supple, JVD not distended Respiratory: Clear to auscultation bilaterally, Normal air movement Cardiovascular: Regular rate/rhythm, Normal S1 S2 Gastrointestinal: Normal bowel sounds, No tenderness Musculoskeletal: No tenderness Integumentary: No rashes Neurological: Normal speech, Normal tone, Normal affect Lymphatics: No axilla or inguinal lymphadenopathy Other Physical/Emotional Findings: Currently Sudicial - Studies Medications List Reviewed: Yes Assessment & Plan - Problems (Diagnosis) (1) Abdominal wall abscess Onset Date: 12/02/17 Current Visit: Yes Status: Acute Plan: S/p I&D in the ER. -PO Bactrim and levaquin -Surgery consulted. No surgical Intervention -Medically cleared to transfer to psych. (2) Nicotine dependence Onset Date: 12/02/17 Current Visit: Yes Status: Chronic Qualifiers: Nicotine product type: cigarettes Substance use status: unspecified nicotine-induced disorder Qualified Code(s): F17.219 - Nicotine dependence, cigarettes, with unspecified nicotine-induced disorders (3) Suicidal behavior Onset Date: 07/24/17 Current Visit: Yes Status: Acute Plan: Currently still Suicidal with a plan of killing himself and others with the gun Qualifiers: Attempted self-injury: without attempted self-injury Qualified Code(s): R46.89 - Other symptoms and signs involving appearance and behavior (4) Bipolar 1 disorder Onset Date: 09/27/16 Current Visit: Yes Status: Chronic (5) Complete below knee amputation of right lower extremity Onset Date: 07/24/17 Current Visit: Yes Status: Chronic Qualifiers: Encounter type: subsequent encounter Qualified Code(s): S88.111D - Complete traumatic amputation at level between knee and ankle, right lower leg, subsequent encounter (6) Diabetes mellitus Onset Date: 09/27/16 Current Visit: Yes Status: Chronic Qualifiers: Diabetes mellitus type: type 2 Diabetes mellitus intermodal dispatcher insulin use: without intermodal dispatcher use Diabetes mellitus complication status: with unspecified complications Qualified Code(s): E11.8 - Type 2 diabetes mellitus with unspecified complications (7) Schizoaffective disorder Onset Date: 09/27/16 Current Visit: Yes Status: Chronic Qualifiers: Schizoaffective disorder type: other Qualified Code(s): F25.8 - Other schizoaffective disorders
[2017-12-03 16:41] VITALS: BP 127/103; TEMP 97.3
== END 2017-12-03 16:45 | DRG 603 ==
LOC: ER 17:54 → ERHOLD 19:48 → UNDOADMIN 19:48 → ERHOLD 23:42 → 3RD-ICU 23:42
PROVIDERS: ADMIT Internal Medicine; ATTEND Family Medicine
DX: L02.211 Cutaneous abscess of abdominal wall (principal); R45.851 Suicidal ideations; F31.9 Bipolar disorder, unspecified; E11.9 Type 2 diabetes mellitus without complications; F25.9 Schizoaffective disorder, unspecified; F17.210 Nicotine dependence, cigarettes, uncomplicated; Z89.511 Acquired absence of right leg below knee
CPT/HCPCS: 36415; 80048; 80076; 80307; 80320; 80329; 81003; 82962; 85025; 85610; 85730; 87070; 87077; 87186; 87205; 96361; 96372; 96374; 99285; J1650; J7030

== ENCOUNTER 2018-09-23 17:11 | Emergency (ER) | payer OTHER ==
--- OUTSIDE RECORDS SUMMARY | 2018-09-23 17:15 | XMS REPORT ---
:1985 [facility] Address [address] [place] [address] Care Team Providers Name Role Phone UNKNOWN, REFFERING Primary Care Provider Unavailable TIBURCIO PIERCE M.D. Unavailable Unavailable DANYELLE HAND M.D. Unavailable Unavailable KHAI GILLETTE M.D. Unavailable Unavailable Problems This patient has no known problems. Allergies, Adverse Reactions, Alerts This patient has no known allergies or adverse reactions. Medications This patient has no known medications. Encounters Start End Encounter Admission Attending Care Care Encounter Date/Time Date/Time Type Type Clinicians Facility Department ID 2017-12-16 Inpatient [facility] [id number] 09:23:00 2017-07-02 2017-07-07 Inpatient [facility] [id number] 14:57:00 22:44:00 [place] Results Test Description Test Time Test Comments Text Results Atomic Results Result Comments POC Glucose, Blood 2017-12-10 07:22:00 Test Item Value Reference Range Comments POC Glucose (test code=POCGLUC) 161 mg/dL 70-115 Notify RN or MDIf you consider your patient critically ill, the [place] Accu-Chek InformII metershould not be used for Glucose determinations.Draw a venous Glucose and send to the Main Lab for Analysis. Comprehensive Metabolic [id number] 07:08:00 Test Item Value Reference Range Comments Sodium (test code=NA) 138 mmol/L 135-145 Potassium (test code=K) 4.8 mmol/L 3.5-5.1 Chloride (test code=CL) 98 mmol/L 98-105 Carbon Dioxide (test 27 mmol/L 22-29 code=CO2) Glucose (test code=GLU) 142 mg/dL 70-115 Blood Urea Nitrogen 32 mg/dL 6-20 (test code=BUN) Creatinine (test 1.3 mg/dL 0.7-1.2 code=CREAT) Calcium (test code=CA) 9.4 mg/dL 8.3-10.5 Prot Total (test 6.7 g/dL 6.4-8.3 code=TP) Albumin (test code=ALB) 3.9 g/dL 3.5-5.2 A/G Ratio (test 1.4 Ratio code=AGRATIO) Globulin (test 2.8 2.9-3.1 code=GLOB) Bili Total (test 0.2 mg/dL 0.1-0.9 code=TBIL) Alk Phos (test 94 U/L 40-129 code=APHOS) AST (test code=AST) 11 U/L 1-40 ALT (test code=ALT) 14 U/L 1-41 BUN/Creatinine Ratio 24.6 (test code=BCRATIO) Anion Gap (test 13 mmol/L 7-16 code=AGAP) Estimated GFR (test >60 mL/min/1.73m2 eGFR (estimated Glomerular code=GFR) Filtration Rate) is an estimated value,calculated from the patient's serum creatinine using the MDRD equation.It is NOT the patient's actual GFR. The eGFR provides a more clinicallyuseful measure of kidney disease than serum creatinine alone.This calculation takes sex and race into account, if the informationis provided. If the race is not provided, and the patient isAfrican-[place], multiply by 1.212. If sex is not provided, and thepatient is female, multiply by 0.742. Results for patients <18 years ofage have not been validated by the MDRD study and should be interpretedwith caution.eGFR Result Interpretation:eGFR > or=60 is in the Normal RangeeGFR < 60 may mean kidney diseaseeGFR < 15 may mean kidney failureRanges recommended by the National Kidney Foundation,http://nkdep.nih .gov CBC with [id number] 06:48:00 Test Item Value Reference Range Comments WBC (test code=WBC) 11.0 K/cumm 4.4-10.5 RBC (test code=RBC) 5.24 M/cumm 4.10-5.70 Hemoglobin (test code=HGB) 11.9 gm/dL 13.4-17.4 Hematocrit (test code=HCT) 39.4 % 38.7-52.0 MCV (test code=MCV) 75.2 fL 80-100 MCH (test code=MCH) 22.8 pg 27.0-32.5 MCHC (test code=MCHC) 30.3 g/dL 32.0-37.5 RDW (test code=RDW) 15.6 % 11.5-14.5 Platelet Count (test code=PLTCT) 416 K/cumm 140-440 MPV (test code=MPV) 9.1 fL Diff Method (test code=DIFFM) Auto Neutrophil (test code=NEUT) 50.8 % 36-70 Lymphocyte (test code=LYMPH) 40.9 % 12-44 Monocyte (test code=MONO) 5.7 % 0-11 Eosinophil (test code=EOS) 1.6 % 0-7 Basophil (test code=BASO) 1.0 % 0-2 Neutro Abs (test code=ANEUT) 5.6 K/cumm 1.6-7.4 Lymph Abs (test code=ALYMPH) 4.5 K/cumm 0.5-4.6 [place] Abs (test code=AMONO) 0.6 K/cumm 0.0-1.2 Eos Abs (test code=AEOS) 0.18 K/cumm 0.00-0.74 Baso Abs (test code=ABASO) 0.1 K/cumm 0.00-0.21 Microcytosis (test code=MICRO) Slight Hypochromic (test code=HYPO) Slight POC Glucose, [id number] 19:07:00 Test Item Value Reference Range Comments POC Glucose (test 227 mg/dL 70-115 If you consider your patient code=POCGLUC) critically ill, the [place] Accu-Chek InformII metershould not be used for Glucose determinations.Draw a venous Glucose and send to the Main Lab for Analysis. POC Glucose, [id number] 16:11:00 Test Item Value Reference Range Comments POC Glucose (test 266 mg/dL 70-115 If you consider your patient code=POCGLUC) critically ill, the [place] Accu-Chek InformII metershould not be used for Glucose determinations.Draw a venous Glucose and send to the Main Lab for Analysis. POC Glucose, [id number] 11:36:00 Test Item Value Reference Range Comments POC Glucose (test 69 mg/dL 70-115 If you consider your patient code=POCGLUC) critically ill, the [place] Accu-Chek InformII metershould not be used for Glucose determinations.Draw a venous Glucose and send to the Main Lab for Analysis. POC Glucose, [id number] 07:45:00 Test Item Value Reference Range Comments POC Glucose (test 234 mg/dL 70-115 If you consider your patient code=POCGLUC) critically ill, the [place] Accu-Chek InformII metershould not be used for Glucose determinations.Draw a venous Glucose and send to the Main Lab for Analysis. POC Glucose, [id number] 19:15:00 Test Item Value Reference Range Comments POC Glucose (test 148 mg/dL 70-115 If you consider your patient code=POCGLUC) critically ill, the [place] Accu-Chek InformII metershould not be used for Glucose determinations.Draw a venous Glucose and send to the Main Lab for Analysis. POC Glucose, [id number] 15:37:00 Test Item Value Reference Range Comments POC Glucose (test 133 mg/dL 70-115 If you consider your patient code=POCGLUC) critically ill, the [place] Accu-Chek InformII metershould not be used for Glucose determinations.Draw a venous Glucose and send to the Main Lab for Analysis. POC Glucose, [id number] 11:10:00 Test Item Value Reference Range Comments POC Glucose (test 203 mg/dL 70-115 Notify RN or MDIf you consider code=POCGLUC) your patient critically ill, the [place] Accu-Chek InformII metershould not be used for Glucose determinations.Draw a venous Glucose and send to the Main Lab for Analysis. POC Glucose, [id number] 07:29:00 Test Item Value Reference Range Comments POC Glucose (test 261 mg/dL 70-115 Notify RN or MDIf you consider code=POCGLUC) your patient critically ill, the [place] Accu-Chek InformII metershould not be used for Glucose determinations.Draw a venous Glucose and send to the Main Lab for Analysis. POC Glucose, [id number] 19:32:00 Test Item Value Reference Range Comments POC Glucose (test 226 mg/dL 70-115 If you consider your patient code=POCGLUC) critically ill, the [place] Accu-Chek InformII metershould not be used for Glucose determinations.Draw a venous Glucose and send to the Main Lab for Analysis. POC Glucose, [id number] 15:58:00 Test Item Value Reference Range Comments POC Glucose (test 138 mg/dL 70-115 Notify RN or MDIf you consider code=POCGLUC) your patient critically ill, the [place] Accu-Chek InformII metershould not be used for Glucose determinations.Draw a venous Glucose and send to the Main Lab for Analysis. POC Glucose, [id number] 11:48:00 Test Item Value Reference Range Comments POC Glucose (test 154 mg/dL 70-115 Notify RN or MDIf you consider code=POCGLUC) your patient critically ill, the [place] Accu-Chek InformII metershould not be used for Glucose determinations.Draw a venous Glucose and send to the Main Lab for Analysis. POC Glucose, [id number] 07:23:00 Test Item Value Reference Range Comments POC Glucose (test 131 mg/dL 70-115 Notify RN or MDIf you consider code=POCGLUC) your patient critically ill, the [place] Accu-Chek InformII metershould not be used for Glucose determinations.Draw a venous Glucose and send to the Main Lab for Analysis. POC Glucose, [id number] 19:38:00 Test Item Value Reference Range Comments POC Glucose (test 160 mg/dL 70-115 If you consider your patient code=POCGLUC) critically ill, the [place] Accu-Chek InformII metershould not be used for Glucose determinations.Draw a venous Glucose and send to the Main Lab for Analysis. POC Glucose, [id number] 17:27:00 Test Item Value Reference Range Comments POC Glucose (test 191 mg/dL 70-115 If you consider your patient code=POCGLUC) critically ill, the [place] Accu-Chek InformII metershould not be used for Glucose determinations.Draw a venous Glucose and send to the Main Lab for Analysis. POC Glucose, [id number] 14:19:00 Test Item Value Reference Range Comments POC Glucose (test 252 mg/dL 70-115 If you consider your patient code=POCGLUC) critically ill, the [place] Accu-Chek InformII metershould not be used for Glucose determinations.Draw a venous Glucose and send to the Main Lab for Analysis. POC Glucose, [id number] 11:41:00 Test Item Value Reference Range Comments POC Glucose (test 114 mg/dL 70-115 If you consider your patient code=POCGLUC) critically ill, the [place] Accu-Chek InformII metershould not be used for Glucose determinations.Draw a venous Glucose and send to the Main Lab for Analysis. POC Glucose, [id number] 05:58:00 Test Item Value Reference Range Comments POC Glucose (test 347 mg/dL 70-115 If you consider your patient code=POCGLUC) critically ill, the [place] Accu-Chek InformII metershould not be used for Glucose determinations.Draw a venous Glucose and send to the Main Lab for Analysis. POC Glucose, [id number] 19:27:00 Test Item Value Reference Range Comments POC Glucose (test 334 mg/dL 70-115 Notify RN or MDIf you consider code=POCGLUC) your patient critically ill, the [place] Accu-Chek InformII metershould not be used for Glucose determinations.Draw a venous Glucose and send to the Main Lab for Analysis. POC Glucose, [id number] 15:02:00 Test Item Value Reference Range Comments POC Glucose (test 72 mg/dL 70-115 If you consider your patient code=POCGLUC) critically ill, the [place] Accu-Chek InformII metershould not be used for Glucose determinations.Draw a venous Glucose and send to the Main Lab for Analysis. POC Glucose, [id number] 12:14:00 Test Item Value Reference Range Comments POC Glucose (test 110 mg/dL 70-115 If you consider your patient code=POCGLUC) critically ill, the [place] Accu-Chek InformII metershould not be used for Glucose determinations.Draw a venous Glucose and send to the Main Lab for Analysis. POC Glucose, [id number] 06:03:00 Test Item Value Reference Range Comments POC Glucose (test 224 mg/dL 70-115 If you consider your patient code=POCGLUC) critically ill, the [place] Accu-Chek InformII metershould not be used for Glucose determinations.Draw a venous Glucose and send to the Main Lab for Analysis. POC Glucose, [id number] 19:29:00 Test Item Value Reference Range Comments POC Glucose (test 300 mg/dL 70-115 Notify RN or MDIf you consider code=POCGLUC) your patient critically ill, the [place] Accu-Chek InformII metershould not be used for Glucose determinations.Draw a venous Glucose and send to the Main Lab for Analysis. POC Glucose, [id number] 16:00:00 Test Item Value Reference Range Comments POC Glucose (test 283 mg/dL 70-115 Notify RN or MDIf you consider code=POCGLUC) your patient critically ill, the [place] Accu-Chek InformII metershould not be used for Glucose determinations.Draw a venous Glucose and send to the Main Lab for Analysis. RPR, [id number] 14:24:00 Test Item Value Reference Range Comments RPR (test code=RPR) Non-Reactive Non-Reactive POC Glucose, [id number] 11:09:00 Test Item Value Reference Range Comments POC Glucose (test 278 mg/dL 70-115 Notify RN or MDIf you consider code=POCGLUC) your patient critically ill, the [place] Accu-Chek InformII metershould not be used for Glucose determinations.Draw a venous Glucose and send to the Main Lab for Analysis. Thyroid Stimulating Hormone (TSH)2017-12-04 09:16:00 Test Item Value Reference Range Comments TSH (test code=TSH) 2.05 mIU/mL 0.270-4.200 Lipid [id number] 08:56:00 Test Item Value Reference Range Comments Cholesterol (test 215 mg/dL 0-200 code=CHOL) Triglycerides (test 370 mg/dL 9-200 code=TRIG) HDL (test code=HDL) 33 mg/dL 40-60 Chol/HDL (test 6.5 Ratio 0.0-5.0 code=CHOLPHDL) LDL, Calculated (test 108 0-130 (NOTE)RISK OF HEART code=LDLC) DISEASEPublished by Northern Irish Heart AssociationAnalyte Optimal Boderline Increased RiskCHOL <200 200-239 >240TRIG <150 150-199 >200HDL Male: >60 <40HDL Female: >60 <50LDL <100 130-159 >160LDL NEAR OPTIMAL IS 100-129 VLDL (test code=VLDL) 74 mg/dL 5-40 LDL/HDL (test code=LDLPHDL) 3 POC Glucose, [id number] 05:44:00 Test Item Value Reference Range Comments POC Glucose (test 229 mg/dL 70-115 Notify RN or MDIf you consider code=POCGLUC) your patient critically ill, the [place] Accu-Chek InformII metershould not be used for Glucose determinations.Draw a venous Glucose and send to the Main Lab for Analysis. POC Glucose, [id number] 11:20:00 Test Item Value Reference Range Comments POC Glucose (test 160 mg/dL 70-115 If you consider your patient code=POCGLUC) critically ill, the [place] Accu-Chek InformII metershould not be used for Glucose determinations.Draw a venous Glucose and send to the Main Lab for Analysis. POC Glucose, [id number] 07:41:00 Test Item Value Reference Range Comments POC Glucose (test 121 mg/dL 70-115 If you consider your patient code=POCGLUC) critically ill, the [place] Accu-Chek InformII metershould not be used for Glucose determinations.Draw a venous Glucose and send to the Main Lab for Analysis. POC Glucose, [id number] 21:24:00 Test Item Value Reference Range Comments POC Glucose (test 108 mg/dL 70-115 If you consider your patient code=POCGLUC) critically ill, the [place] Accu-Chek InformII metershould not be used for Glucose determinations.Draw a venous Glucose and send to the Main Lab for Analysis. POC Glucose, [id number] 15:55:00 Test Item Value Reference Range Comments POC Glucose (test 160 mg/dL 70-115 Notify RN or MDIf you consider code=POCGLUC) your patient critically ill, the [place] Accu-Chek InformII metershould not be used for Glucose determinations.Draw a venous Glucose and send to the Main Lab for Analysis. POC Glucose, [id number] 11:21:00 Test Item Value Reference Range Comments POC Glucose (test 111 mg/dL 70-115 If you consider your patient code=POCGLUC) critically ill, the [place] Accu-Chek InformII metershould not be used for Glucose determinations.Draw a venous Glucose and send to the Main Lab for Analysis. POC Glucose, [id number] 08:06:00 Test Item Value Reference Range Comments POC Glucose (test 135 mg/dL 70-115 If you consider your patient code=POCGLUC) critically ill, the [place] Accu-Chek InformII metershould not be used for Glucose determinations.Draw a venous Glucose and send to the Main Lab for Analysis. POC Glucose, [id number] 22:43:00 Test Item Value Reference Range Comments POC Glucose (test 106 mg/dL 70-115 If you consider your patient code=POCGLUC) critically ill, the [place] Accu-Chek InformII metershould not be used for Glucose determinations.Draw a venous Glucose and send to the Main Lab for Analysis. POC Glucose, [id number] 16:42:00 Test Item Value Reference Range Comments POC Glucose (test 96 mg/dL 70-115 If you consider your patient code=POCGLUC) critically ill, the [place] Accu-Chek InformII metershould not be used for Glucose determinations.Draw a venous Glucose and send to the Main Lab for Analysis. POC Glucose, [id number] 11:10:00 Test Item Value Reference Range Comments POC Glucose (test 149 mg/dL 70-115 Notify RN or MDIf you consider code=POCGLUC) your patient critically ill, the [place] Accu-Chek InformII metershould not be used for Glucose determinations.Draw a venous Glucose and send to the Main Lab for Analysis. POC Glucose, [id number] 07:26:00 Test Item Value Reference Range Comments POC Glucose (test 124 mg/dL 70-115 If you consider your patient code=POCGLUC) critically ill, the [place] Accu-Chek InformII metershould not be used for Glucose determinations.Draw a venous Glucose and send to the Main Lab for Analysis. POC Glucose, [id number] 21:16:00 Test Item Value Reference Range Comments POC Glucose (test 164 mg/dL 70-115 Notify RN or MDIf you consider code=POCGLUC) your patient critically ill, the [place] Accu-Chek InformII metershould not be used for Glucose determinations.Draw a venous Glucose and send to the Main Lab for Analysis. POC Glucose, [id number] 16:34:00 Test Item Value Reference Range Comments POC Glucose (test 100 mg/dL 70-115 If you consider your patient code=POCGLUC) critically ill, the [place] Accu-Chek InformII metershould not be used for Glucose determinations.Draw a venous Glucose and send to the Main Lab for Analysis. POC Glucose, [id number] 11:06:00 Test Item Value Reference Range Comments POC Glucose (test 120 mg/dL 70-115 If you consider your patient code=POCGLUC) critically ill, the [place] Accu-Chek InformII metershould not be used for Glucose determinations.Draw a venous Glucose and send to the Main Lab for Analysis. POC Glucose, [id number] 07:30:00 Test Item Value Reference Range Comments POC Glucose (test 80 mg/dL 70-115 If you consider your patient code=POCGLUC) critically ill, the [place] Accu-Chek InformII metershould not be used for Glucose determinations.Draw a venous Glucose and send to the Main Lab for Analysis. POC Glucose, [id number] 21:17:00 Test Item Value Reference Range Comments POC Glucose (test 175 mg/dL 70-115 Notify RN or MDIf you consider code=POCGLUC) your patient critically ill, the [place] Accu-Chek InformII metershould not be used for Glucose determinations.Draw a venous Glucose and send to the Main Lab for Analysis. POC Glucose, [id number] 17:46:00 Test Item Value Reference Range Comments POC Glucose (test 128 mg/dL 70-115 If you consider your patient code=POCGLUC) critically ill, the [place] Accu-Chek InformII metershould not be used for Glucose determinations.Draw a venous Glucose and send to the Main Lab for Analysis. POC Glucose, [id number] 11:35:00 Test Item Value Reference Range Comments POC Glucose (test 134 mg/dL 70-115 If you consider your patient code=POCGLUC) critically ill, the [place] Accu-Chek InformII metershould not be used for Glucose determinations.Draw a venous Glucose and send to the Main Lab for Analysis. POC Glucose, [id number] 08:10:00 Test Item Value Reference Range Comments POC Glucose (test 220 mg/dL 70-115 If you consider your patient code=POCGLUC) critically ill, the [place] Accu-Chek InformII metershould not be used for Glucose determinations.Draw a venous Glucose and send to the Main Lab for Analysis. Comprehensive Metabolic [id number] 06:52:00 Test Item Value Reference Range Comments [...] mmol/L 7-16 code=AGAP) Estimated GFR (test >60 mL/min/1.73m2 eGFR (estimated Glomerular code=GFR) Filtration Rate) is an estimated value,calculated from the patient's serum creatinine using the MDRD equation.It is NOT the patient's actual GFR. The eGFR provides a more clinicallyuseful measure of kidney disease than serum creatinine alone.This calculation takes sex and race into account, if the informationis provided. If the race is not provided, and the patient isAfrican-[place], multiply by 1.212. If sex is not provided, and thepatient is female, multiply by 0.742. Results for patients <18 years ofage have not been validated by the MDRD study and should be interpretedwith caution.eGFR Result Interpretation:eGFR > or=60 is in the Normal RangeeGFR < 60 may mean kidney diseaseeGFR < 15 may mean kidney failureRanges recommended by the National Kidney Foundation,http://nkdep.nih .gov CBC with [id number] 06:34:00 Test Item Value Reference Range Comments [...] Lymph Abs (test code=ALYMPH) 2.4 K/cumm 0.5-4.6 [place] Abs (test code=AMONO) 0.7 K/cumm 0.0-1.2 Eos Abs (test code=AEOS) 0.19 K/cumm 0.00-0.74 Baso Abs (test code=ABASO) 0.1 K/cumm 0.00-0.21 Microcytosis (test code=MICRO) Slight POC Glucose, [id number] 20:28:00 Test Item Value Reference Range Comments POC Glucose (test 211 mg/dL 70-115 If you consider your patient code=POCGLUC) critically ill, the [place] Accu-Chek InformII metershould not be used for Glucose determinations.Draw a venous Glucose and send to the Main Lab for Analysis. POC Glucose, [id number] 17:09:00 Test Item Value Reference Range Comments POC Glucose (test 146 mg/dL 70-115 If you consider your patient code=POCGLUC) critically ill, the [place] Accu-Chek InformII metershould not be used for Glucose determinations.Draw a venous Glucose and send to the Main Lab for Analysis. POC Glucose, [id number] 11:53:00 Test Item Value Reference Range Comments POC Glucose (test 136 mg/dL 70-115 If you consider your patient code=POCGLUC) critically ill, the [place] Accu-Chek InformII metershould not be used for Glucose determinations.Draw a venous Glucose and send to the Main Lab for Analysis. POC Glucose, [id number] 07:57:00 Test Item Value Reference Range Comments POC Glucose (test 143 mg/dL 70-115 If you consider your patient code=POCGLUC) critically ill, the [place] Accu-Chek InformII metershould not be used for Glucose determinations.Draw a venous Glucose and send to the Main Lab for Analysis. POC Glucose, [id number] 20:38:00 Test Item Value Reference Range Comments POC Glucose (test 152 mg/dL 70-115 Notify RN or MDIf you consider code=POCGLUC) your patient critically ill, the [place] Accu-Chek InformII metershould not be used for Glucose determinations.Draw a venous Glucose and send to the Main Lab for Analysis. POC Glucose, [id number] 16:49:00 Test Item Value Reference Range Comments POC Glucose (test 171 mg/dL 70-115 Notify RN or MDIf you consider code=POCGLUC) your patient critically ill, the [place] Accu-Chek InformII metershould not be used for Glucose determinations.Draw a venous Glucose and send to the Main Lab for Analysis. POC Glucose, [id number] 11:10:00 Test Item Value Reference Range Comments POC Glucose (test 160 mg/dL 70-115 Notify RN or MDIf you consider code=POCGLUC) your patient critically ill, the [place] Accu-Chek InformII metershould not be used for Glucose determinations.Draw a venous Glucose and send to the Main Lab for Analysis. POC Glucose, [id number] 07:36:00 Test Item Value Reference Range Comments POC Glucose (test 126 mg/dL 70-115 If you consider your patient code=POCGLUC) critically ill, the [place] Accu-Chek InformII metershould not be used for Glucose determinations.Draw a venous Glucose and send to the Main Lab for Analysis. POC Glucose, [id number] 20:51:00 Test Item Value Reference Range Comments POC Glucose (test 165 mg/dL 70-115 Notify RN or MDIf you consider code=POCGLUC) your patient critically ill, the [place] Accu-Chek InformII metershould not be used for Glucose determinations.Draw a venous Glucose and send to the Main Lab for Analysis. POC Glucose, [id number] 16:42:00 Test Item Value Reference Range Comments POC Glucose (test 133 mg/dL 70-115 If you consider your patient code=POCGLUC) critically ill, the [place] Accu-Chek InformII metershould not be used for Glucose determinations.Draw a venous Glucose and send to the Main Lab for Analysis. POC Glucose, [id number] 11:19:00 Test Item Value Reference Range Comments POC Glucose (test 250 mg/dL 70-115 Notify RN or MDIf you consider code=POCGLUC) your patient critically ill, the [place] Accu-Chek InformII metershould not be used for Glucose determinations.Draw a venous Glucose and send to the Main Lab for Analysis. Culture, [id number] 08:19:00Specimen: UrineCollected: 07/10/2017 12:47 Status: Final Last Updated: 07/12/2017 08:19 Culture Result (Final) (Final ) 07/11/17 No growth 24 hours 07/12/17 No growth 48 hoursPOC Glucose, [id number] 07:26:00 Test Item Value Reference Range Comments POC Glucose (test 131 mg/dL 70-115 Notify RN or MDIf you consider code=POCGLUC) your patient critically ill, the [place] Accu-Chek InformII metershould not be used for Glucose determinations.Draw a venous Glucose and send to the Main Lab for Analysis. POC Glucose, [id number] 20:55:00 Test Item Value Reference Range Comments POC Glucose (test 140 mg/dL 70-115 If you consider your patient code=POCGLUC) critically ill, the [place] Accu-Chek InformII metershould not be used for Glucose determinations.Draw a venous Glucose and send to the Main Lab for Analysis. POC Glucose, [id number] 16:13:00 Test Item Value Reference Range Comments POC Glucose (test 151 mg/dL 70-115 Notify RN or MDIf you consider code=POCGLUC) your patient critically ill, the [place] Accu-Chek InformII metershould not be used for Glucose determinations.Draw a venous Glucose and send to the Main Lab for Analysis. POC Glucose, [id number] 11:43:00 Test Item Value Reference Range Comments POC Glucose (test 170 mg/dL 70-115 Notify RN or MDIf you consider code=POCGLUC) your patient critically ill, the [place] Accu-Chek InformII metershould not be used for Glucose determinations.Draw a venous Glucose and send to the Main Lab for Analysis. POC Glucose, [id number] 07:23:00 Test Item Value Reference Range Comments POC Glucose (test 207 mg/dL 70-115 Notify RN or MDIf you consider code=POCGLUC) your patient critically ill, the [place] Accu-Chek InformII metershould not be used for Glucose determinations.Draw a venous Glucose and send to the Main Lab for Analysis. POC Glucose, [id number] 20:24:00 Test Item Value Reference Range Comments POC Glucose (test 208 mg/dL 70-115 If you consider your patient code=POCGLUC) critically ill, the [place] Accu-Chek InformII metershould not be used for Glucose determinations.Draw a venous Glucose and send to the Main Lab for Analysis. POC Glucose, [id number] 17:14:00 Test Item Value Reference Range Comments POC Glucose (test 158 mg/dL 70-115 If you consider your patient code=POCGLUC) critically ill, the [place] Accu-Chek InformII metershould not be used for Glucose determinations.Draw a venous Glucose and send to the Main Lab for Analysis. Urinalysis [id number] 13:04:00 Test Item Value Reference Range Comments Color (test code=COLOR) Straw Yellow,Straw,Pl yellow Clarity (test code=CLAR) Clear Clear Specific Pony (test code=SPGR) 1.010 1.001-1.035 pH (test code=PH) [...] Exam (test code=MEXAM) Not indicated POC Glucose, [id number] 11:48:00 Test Item Value Reference Range Comments POC Glucose (test 135 mg/dL 70-115 If you consider your patient code=POCGLUC) critically ill, the [place] Accu-Chek InformII metershould not be used for Glucose determinations.Draw a venous Glucose and send to the Main Lab for Analysis. POC Glucose, [id number] 07:47:00 Test Item Value Reference Range Comments POC Glucose (test 173 mg/dL 70-115 If you consider your patient code=POCGLUC) critically ill, the [place] Accu-Chek InformII metershould not be used for Glucose determinations.Draw a venous Glucose and send to the Main Lab for Analysis. Basic Metabolic [id number] 05:18:00 Test Item Value Reference Range Comments [...] mmol/L 7-16 code=AGAP) Estimated GFR (test >60 mL/min/1.73m2 eGFR (estimated Glomerular code=GFR) Filtration Rate) is an estimated value,calculated from the patient's serum creatinine using the MDRD equation.It is NOT the patient's actual GFR. The eGFR provides a more clinicallyuseful measure of kidney disease than serum creatinine alone.This calculation takes sex and race into account, if the informationis provided. If the race is not provided, and the patient isAfrican-[place], multiply by 1.212. If sex is not provided, and thepatient is female, multiply by 0.742. Results for patients <18 years ofage have not been validated by the MDRD study and should be interpretedwith caution.eGFR Result Interpretation:eGFR > or=60 is in the Normal RangeeGFR < 60 may mean kidney diseaseeGFR < 15 may mean kidney failureRanges recommended by the National Kidney Foundation,http://nkdep.nih .gov CBC with [id number] 04:59:00 Test Item Value Reference Range Comments [...] Lymph Abs (test code=ALYMPH) 2.7 K/cumm 0.5-4.6 [place] Abs (test code=AMONO) 0.8 K/cumm 0.0-1.2 Eos Abs (test code=AEOS) 0.26 K/cumm 0.00-0.74 Baso Abs (test code=ABASO) 0.0 K/cumm 0.00-0.21 POC Glucose, [id number] 20:59:00 Test Item Value Reference Range Comments POC Glucose (test 199 mg/dL 70-115 Notify RN or MDIf you consider code=POCGLUC) your patient critically ill, the [place] Accu-Chek InformII metershould not be used for Glucose determinations.Draw a venous Glucose and send to the Main Lab for Analysis. POC Glucose, [id number] 16:26:00 Test Item Value Reference Range Comments POC Glucose (test 170 mg/dL 70-115 Notify RN or MDIf you consider code=POCGLUC) your patient critically ill, the [place] Accu-Chek InformII metershould not be used for Glucose determinations.Draw a venous Glucose and send to the Main Lab for Analysis. POC Glucose, [id number] 11:41:00 Test Item Value Reference Range Comments POC Glucose (test 246 mg/dL 70-115 If you consider your patient code=POCGLUC) critically ill, the [place] Accu-Chek InformII metershould not be used for Glucose determinations.Draw a venous Glucose and send to the Main Lab for Analysis. Glycosylated [id number] 07:39:00 Test Item Value Reference Range Comments HBA1c (test code=HBA1C) 9.1 % 4.8-5.9 POC Glucose, [id number] 07:36:00 Test Item Value Reference Range Comments POC Glucose (test 206 mg/dL 70-115 If you consider your patient code=POCGLUC) critically ill, the [place] Accu-Chek InformII metershould not be used for Glucose determinations.Draw a venous Glucose and send to the Main Lab for Analysis. CBC with [id number] 06:09:00 Test Item Value Reference Range Comments [...] Lymph Abs (test code=ALYMPH) 3.5 K/cumm 0.5-4.6 [place] Abs (test code=AMONO) 1.0 K/cumm 0.0-1.2 Eos Abs (test code=AEOS) 0.19 K/cumm 0.00-0.74 Baso Abs (test code=ABASO) 0.1 K/cumm 0.00-0.21 Microcytosis (test code=MICRO) Slight Comprehensive Metabolic [id number] 06:00:00 Test Item Value Reference Range Comments [...] mmol/L 7-16 code=AGAP) Estimated GFR (test >60 mL/min/1.73m2 eGFR (estimated Glomerular code=GFR) Filtration Rate) is an estimated value,calculated from the patient's serum creatinine using the MDRD equation.It is NOT the patient's actual GFR. The eGFR provides a more clinicallyuseful measure of kidney disease than serum creatinine alone.This calculation takes sex and race into account, if the informationis provided. If the race is not provided, and the patient isAfrican-[place], multiply by 1.212. If sex is not provided, and thepatient is female, multiply by 0.742. Results for patients <18 years ofage have not been validated by the MDRD study and should be interpretedwith caution.eGFR Result Interpretation:eGFR > or=60 is in the Normal RangeeGFR < 60 may mean kidney diseaseeGFR < 15 may mean kidney failureRanges recommended by the National Kidney Foundation,http://nkdep.nih .gov Magnesium, [id number] 06:00:00 Test Item Value Reference Range Comments Magnesium (test code=MG) 2.2 mg/dL 1.7-2.5 [id number] 06:00:00 Test Item Value Reference Range Comments Phosphorus (test code=PO4) 2.8 mg/dL 2.70-4.50 POC Glucose, [id number] 20:44:00 Test Item Value Reference Range Comments POC Glucose (test 199 mg/dL 70-115 If you consider your patient code=POCGLUC) critically ill, the [place] Accu-Chek InformII metershould not be used for Glucose determinations.Draw a venous Glucose and send to the Main Lab for Analysis. POC Glucose, [id number] 16:28:00 Test Item Value Reference Range Comments POC Glucose (test 242 mg/dL 70-115 Notify RN or MDIf you consider code=POCGLUC) your patient critically ill, the [place] Accu-Chek InformII metershould not be used for Glucose determinations.Draw a venous Glucose and send to the Main Lab for Analysis. POC Glucose, [id number] 13:37:00 Test Item Value Reference Range Comments POC Glucose (test 131 mg/dL 70-115 If you consider your patient code=POCGLUC) critically ill, the [place] Accu-Chek InformII metershould not be used for Glucose determinations.Draw a venous Glucose and send to the Main Lab for Analysis. POC Glucose, [id number] 12:14:00 Test Item Value Reference Range Comments POC Glucose (test 100 mg/dL 70-115 If you consider your patient code=POCGLUC) critically ill, the [place] Accu-Chek InformII metershould not be used for Glucose determinations.Draw a venous Glucose and send to the Main Lab for Analysis. POC Glucose, [id number] 07:30:00 Test Item Value Reference Range Comments POC Glucose (test 123 mg/dL 70-115 If you consider your patient code=POCGLUC) critically ill, the [place] Accu-Chek InformII metershould not be used for Glucose determinations.Draw a venous Glucose and send to the Main Lab for Analysis. Basic Metabolic [id number] 06:05:00 Test Item Value Reference Range Comments [...] mmol/L 7-16 code=AGAP) Estimated GFR (test >60 mL/min/1.73m2 eGFR (estimated Glomerular code=GFR) Filtration Rate) is an estimated value,calculated from the patient's serum creatinine using the MDRD equation.It is NOT the patient's actual GFR. The eGFR provides a more clinicallyuseful measure of kidney disease than serum creatinine alone.This calculation takes sex and race into account, if the informationis provided. If the race is not provided, and the patient isAfrican-[place], multiply by 1.212. If sex is not provided, and thepatient is female, multiply by 0.742. Results for patients <18 years ofage have not been validated by the MDRD study and should be interpretedwith caution.eGFR Result Interpretation:eGFR > or=60 is in the Normal RangeeGFR < 60 may mean kidney diseaseeGFR < 15 may mean kidney failureRanges recommended by the National Kidney Foundation,http://nkdep.nih .gov CBC with [id number] 05:44:00 Test Item Value Reference Range Comments [...] Lymph Abs (test code=ALYMPH) 4.8 K/cumm 0.5-4.6 [place] Abs (test code=AMONO) 0.8 K/cumm 0.0-1.2 Eos Abs (test code=AEOS) 0.34 K/cumm 0.00-0.74 Baso Abs (test code=ABASO) 0.1 K/cumm 0.00-0.21 POC Glucose, [id number] 20:29:00 Test Item Value Reference Range Comments POC Glucose (test 152 mg/dL 70-115 If you consider your patient code=POCGLUC) critically ill, the [place] Accu-Chek InformII metershould not be used for Glucose determinations.Draw a venous Glucose and send to the Main Lab for Analysis. Antibody Screen - [id number] 17:58:00 Test Item Value Reference Range Comments Antibody Screen (test code=ABSCR) Negative Blood Type and [id number] 17:44:00 Test Item Value Reference Range Comments ABO type (test code=ABO) A Rh Type (test code=RH) Positive POC Glucose, [id number] 16:09:00 Test Item Value Reference Range Comments POC Glucose (test 192 mg/dL 70-115 If you consider your patient code=POCGLUC) critically ill, the [place] Accu-Chek InformII metershould not be used for Glucose determinations.Draw a venous Glucose and send to the Main Lab for Analysis. POC Glucose, [id number] 12:11:00 Test Item Value Reference Range Comments POC Glucose (test 249 mg/dL 70-115 If you consider your patient code=POCGLUC) critically ill, the [place] Accu-Chek InformII metershould not be used for Glucose determinations.Draw a venous Glucose and send to the Main Lab for Analysis. MRI LWR EXTRM NON-JNT WO [id number] 09:25:10LOCATION: [id number]: MRI LWR EXTRM NON-JNT WO CONTRST-LEFTINDICATION: LEFT FOOT DORSAL CALLOUSCOMPARISON : [...] concerning for injury.US DUPLX LWR EXT ART/BPG, [id number] 08: 50:53US NOELLELX LWR EXT ART/BPG, FLOWERATCLINICAL HISTORY: non-healing woundsTechnique: Grayscale, color, and spectral sonography of the bilateral lower extremity arteries was performed.FINDINGS:Right leg (waveform / peak systolic velocity)R D ENGINEER: Triphasic 95 cm/secProx SFA: Triphasic 92 cm/secMid SFA: Triphasic 81 cm/secDistal SFA: Triphasic 83 cm/ secPopliteal: Triphasic 84 cm/secPTA: Monophasic 93 cm/ secATA: Triphasic 32 cm/secDPA: Not imaged/bandaging Left leg (waveform / peak systolic velocity)R D ENGINEER: Triphasic 88 cm/secProx SFA: Triphasic 93 cm/secMid SFA: Triphasic 82 cm/ secDistal SFA: Triphasic 49 cm/secPopliteal: Triphasic 60 cm/secPTA: Triphasic 73 cm/secATA: Triphasic 93 cm/secDPA: Not imaged/bandaging IMPRESSION: 1. Limited exam. Thedorsalis pedis arteries are not imaged.2. Abnormal monophasic waveform in the right posterior tibial artery.3. Otherwise unremarkable exam.Location: [id number] with [id number] 08:22:00 Test Item Value Reference Range Comments [...] Lymph Abs (test code=ALYMPH) 3.6 K/cumm 0.5-4.6 [place] Abs (test code=AMONO) 0.6 K/cumm 0.0-1.2 Eos Abs (test code=AEOS) 0.37 K/cumm 0.00-0.74 Baso Abs (test code=ABASO) 0.1 K/cumm 0.00-0.21 Basic Metabolic [id number] 08:03:00 Test Item Value Reference Range Comments [...] mmol/L 7-16 code=AGAP) Estimated GFR (test >60 mL/min/1.73m2 eGFR (estimated Glomerular code=GFR) Filtration Rate) is an estimated value,calculated from the patient's serum creatinine using the MDRD equation.It is NOT the patient's actual GFR. The eGFR provides a more clinicallyuseful measure of kidney disease than serum creatinine alone.This calculation takes sex and race into account, if the informationis provided. If the race is not provided, and the patient isAfrican-[place], multiply by 1.212. If sex is not provided, and thepatient is female, multiply by 0.742. Results for patients <18 years ofage have not been validated by the MDRD study and should be interpretedwith caution.eGFR Result Interpretation:eGFR > or=60 is in the Normal RangeeGFR < 60 may mean kidney diseaseeGFR < 15 may mean kidney failureRanges recommended by the National Kidney Foundation,http://nkdep.nih .gov POC Glucose, [id number] 07:30:00 Test Item Value Reference Range Comments POC Glucose (test 110 mg/dL 70-115 If you consider your patient code=POCGLUC) critically ill, the [place] Accu-Chek InformII metershould not be used for Glucose determinations.Draw a venous Glucose and send to the Main Lab for Analysis. POC Glucose, [id number] 19:57:00 Test Item Value Reference Range Comments POC Glucose (test 124 mg/dL 70-115 If you consider your patient code=POCGLUC) critically ill, the [place] Accu-Chek InformII metershould not be used for Glucose determinations.Draw a venous Glucose and send to the Main Lab for Analysis. POC Glucose, [id number] 16:10:00 Test Item Value Reference Range Comments POC Glucose (test 114 mg/dL 70-115 Notify RN or MDIf you consider code=POCGLUC) your patient critically ill, the [place] Accu-Chek InformII metershould not be used for Glucose determinations.Draw a venous Glucose and send to the Main Lab for Analysis. POC Glucose, [id number] 11:18:00 Test Item Value Reference Range Comments POC Glucose (test 203 mg/dL 70-115 Notify RN or MDIf you consider code=POCGLUC) your patient critically ill, the [place] Accu-Chek InformII metershould not be used for Glucose determinations.Draw a venous Glucose and send to the Main Lab for Analysis. Culture, Wound [id number] 09:58:00Specimen: FootCollected: 2016 17:00 Status: Final Last [...] Streptococcus Beta Hemolytic Streptococcus Group GPOC Glucose, [id number] 07:23:00 Test Item Value Reference Range Comments POC Glucose (test 197 mg/dL 70-115 Notify RN or MDIf you consider code=POCGLUC) your patient critically ill, the [place] Accu-Chek InformII metershould not be used for Glucose determinations.Draw a venous Glucose and send to the Main Lab for Analysis. POC Glucose, [id number] 16:09:00 Test Item Value Reference Range Comments POC Glucose (test 194 mg/dL 70-115 If you consider your patient code=POCGLUC) critically ill, the [place] Accu-Chek InformII metershould not be used for Glucose determinations.Draw a venous Glucose and send to the Main Lab for Analysis. POC Glucose, [id number] 11:33:00 Test Item Value Reference Range Comments POC Glucose (test 193 mg/dL 70-115 If you consider your patient code=POCGLUC) critically ill, the [place] Accu-Chek InformII metershould not be used for Glucose determinations.Draw a venous Glucose and send to the Main Lab for Analysis. MRI LWR EXTRM NON-JNT WO [id number] 08:18:56EXAM: MRI right foot without contrastLocation: [id number]: History of amputation, rule out osteomyelitisCOMPARISON: Left [...] stump.3. Post amputation changes as described.POC Glucose, [id number] 07:15:00 Test Item Value Reference Range Comments POC Glucose (test 140 mg/dL 70-115 If you consider your patient code=POCGLUC) critically ill, the [place] Accu-Chek InformII metershould not be used for Glucose determinations.Draw a venous Glucose and send to the Main Lab for Analysis. Sed Rate ESR ([place])2017-07-05 06:40:00 Test Item Value Reference Range Comments ESR (test code=HESR) 54 mm/Hr 0-9 C-Reactive Protein, [id number] 05:41:00 Test Item Value Reference Range Comments CRP (test code=CRP) 34.7 mg/L 0.0-5.0 POC Glucose, [id number] 21:22:00 Test Item Value Reference Range Comments POC Glucose (test 141 mg/dL 70-115 If you consider your patient code=POCGLUC) critically ill, the [place] Accu-Chek InformII metershould not be used for Glucose determinations.Draw a venous Glucose and send to the Main Lab for Analysis. POC Glucose, [id number] 16:09:00 Test Item Value Reference Range Comments POC Glucose (test 156 mg/dL 70-115 If you consider your patient code=POCGLUC) critically ill, the [place] Accu-Chek InformII metershould not be used for Glucose determinations.Draw a venous Glucose and send to the Main Lab for Analysis. POC Glucose, [id number] 12:05:00 Test Item Value Reference Range Comments POC Glucose (test 170 mg/dL 70-115 If you consider your patient code=POCGLUC) critically ill, the [place] Accu-Chek InformII metershould not be used for Glucose determinations.Draw a venous Glucose and send to the Main Lab for Analysis. XR FOOT [id number] 08:56:55XR FOOT 2V-LEFTLOCATION: [id number]:left foot ulcer COMPARISON: None.DISCUSSION:Frontal and lateral radiographs [...] stump.2. No definite acute osseous abnormalities.XR FOOT [id number] 08:53:30XR FOOT 2V- RIGHTLOCATION: [id number]:right foot stump ulcer COMPARISON: None.DISCUSSION:Frontal and lateral radiographs of the right foot were obtained. Amputation changes at the proximal metatarsals are noted.No definite suspicious focal osseous destruction or periosteal reactionis seen.Otherwise, no acute fracture or dislocation is seen.The joint spaces are grossly preserved.IMPRESSION:1. 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 No definite acute osseous abnormalities.POC Glucose, [id number] 07:50:00 Test Item Value Reference Range Comments POC Glucose (test 139 mg/dL 70-115 If you consider your patient code=POCGLUC) critically ill, the [place] Accu-Chek InformII metershould not be used for Glucose determinations.Draw a venous Glucose and send to the Main Lab for Analysis. CBC with [id number] 06:19:00 Test Item Value Reference Range Comments [...] Lymph Abs (test code=ALYMPH) 2.7 K/cumm 0.5-4.6 [place] Abs (test code=AMONO) 0.6 K/cumm 0.0-1.2 Eos Abs (test code=AEOS) 0.32 K/cumm 0.00-0.74 Baso Abs (test code=ABASO) 0.1 K/cumm 0.00-0.21 Lipid [id number] 06:15:00 Test Item Value Reference Range Comments Cholesterol (test 133 mg/dL 0-200 code=CHOL) Triglycerides (test 164 mg/dL 9-200 code=TRIG) HDL (test code=HDL) 31 mg/dL 40-60 Chol/HDL (test 4.3 Ratio 0.0-5.0 code=CHOLPHDL) LDL, Calculated (test 69 0-130 (NOTE)RISK OF HEART code=LDLC) DISEASEPublished by [place] Heart AssociationAnalyte Optimal Boderline Increased RiskCHOL <200 200-239 >240TRIG <150 150-199 >200HDL Male: >60 <40HDL Female: >60 <50LDL <100 130-159 >160LDL NEAR OPTIMAL IS 100-129 VLDL (test code=VLDL) 33 mg/dL 5-40 LDL/HDL (test code=LDLPHDL) 2 POC Glucose, [id number] 17:14:00 Test Item Value Reference Range Comments POC Glucose (test 129 mg/dL 70-115 If you consider your patient code=POCGLUC) critically ill, the [place] Accu-Chek InformII metershould not be used for Glucose determinations.Draw a venous Glucose and send to the Main Lab for Analysis. RPR, [id number] 12:26:00 Test Item Value Reference Range Comments RPR (test code=RPR) Non-Reactive Non-Reactive POC Glucose, [id number] 12:05:00 Test Item Value Reference Range Comments POC Glucose (test 173 mg/dL 70-115 If you consider your patient code=POCGLUC) critically ill, the [place] Accu-Chek InformII metershould not be used for Glucose determinations.Draw a venous Glucose and send to the Main Lab for Analysis. POC Glucose, [id number] 07:57:00 Test Item Value Reference Range Comments POC Glucose (test 144 mg/dL 70-115 If you consider your patient code=POCGLUC) critically ill, the [place] Accu-Chek InformII metershould not be used for Glucose determinations.Draw a venous Glucose and send to the Main Lab for Analysis. POC Glucose, [id number] 06:19:00 Test Item Value Reference Range Comments [...] TSH (test code=TSH) 2.08 mIU/mL 0.270-4.200 Lipid [id number] 23:52:00 Test Item Value Reference Range Comments Cholesterol (test 171 mg/dL 0-200 code=CHOL) Triglycerides (test 171 mg/dL 9-200 code=TRIG) HDL (test code=HDL) 37 mg/dL 40-60 Chol/HDL (test 4.6 Ratio 0.0-5.0 code=CHOLPHDL) LDL, Calculated (test 100 0-130 (NOTE)RISK OF HEART code=LDLC) DISEASEPublished by [place] Heart AssociationAnalyte Optimal Boderline Increased RiskCHOL <200 200-239 >240TRIG <150 150-199 >200HDL Male: >60 <40HDL Female: >60 <50LDL <100 130-159 >160LDL NEAR OPTIMAL IS 100-129 VLDL (test code=VLDL) 34 mg/dL 5-40 LDL/HDL (test code=LDLPHDL) 3 POC Glucose, [id number] 20:03:00 Test Item Value Reference Range Comments POC Glucose (test 221 mg/dL 70-115 If you consider your patient code=POCGLUC) critically ill, the [place] Accu-Chek InformII metershould not be used for Glucose determinations.Draw a venous Glucose and send to the Main Lab for Analysis. POC Glucose, [id number] 16:47:00 Test Item Value Reference Range Comments POC Glucose (test 304 mg/dL 70-115 If you consider your patient code=POCGLUC) critically ill, the [place] Accu-Chek InformII metershould not be used for Glucose determinations.Draw a venous Glucose and send to the Main Lab for Analysis. POC Glucose, [id number] 15:20:00 Test Item Value Reference Range Comments POC Glucose (test 368 mg/dL 70-115 If you consider your patient code=POCGLUC) critically ill, the [place] Accu-Chek InformII metershould not be used for Glucose determinations.Draw a venous Glucose and send to the Main Lab for Analysis. [id number] 08:27:00 Test Item Value Reference Range Comments Amphetamine (test code=AMPH) Negative Negative For diagnostic purposes only, positive results should always be assessedin conjunctionwith the patient's medical history,clinical examination and otherfindings.To fulfill legal requirements, a more specific alternate chemical methodmust be used inorder to obtain a Confirmed analytical result. GC/MS is the preferred confirmatory method. Barbiturates (test code=MARYLIN) Negative Negative Benzodiazepine (test Negative Negative code=DEVON) Cocaine (test code=COCA) Negative Negative Methadone (test code=MTHD) Negative Negative Opiates (test code=OPIA) Negative Negative PCP (test code=PCP) Negative Negative Propoxyphene (test Negative Negative code=PROPOX) THC (test code=THC) Negative Negative Alcohol, Urine (test <0.01 g/dL 0.00-0.01 code=ETOHU) Urinalysis [id number] 07:59:00 Test Item Value Reference Range Comments Color (test code=COLOR) Yellow Yellow,Straw,Pl yellow Clarity (test code=CLAR) Clear Clear Specific Pony (test code=SPGR) 1.026 1.001-1.035 pH (test code=PH) [...] Bacteria (test code=BACT) Few /HPF POC Glucose, [id number] 07:23:00 Test Item Value Reference Range Comments POC Glucose (test 174 mg/dL 70-115 If you consider your patient code=POCGLUC) critically ill, the [place] Accu-Chek InformII metershould not be used for Glucose determinations.Draw a venous Glucose and send to the Main Lab for Analysis. [id number] 06:52:00 Test Item Value Reference Range Comments Acetone [Serum] (test code=ACETONE) Negative Negative Comprehensive Metabolic [id number] 06:19:00 Test Item Value Reference Range Comments [...] mmol/L 7-16 code=AGAP) Estimated GFR (test >60 mL/min/1.73m2 eGFR (estimated Glomerular code=GFR) Filtration Rate) is an estimated value,calculated from the patient's serum creatinine using the MDRD equation.It is NOT the patient's actual GFR. The eGFR provides a more clinicallyuseful measure of kidney disease than serum creatinine alone.This calculation takes sex and race into account, if the informationis provided. If the race is not provided, and the patient isAfrican-Northern Irish, multiply by 1.212. If sex is not provided, and thepatient is female, multiply by 0.742. Results for patients <18 years ofage have not been validated by the MDRD study and should be interpretedwith caution.eGFR Result Interpretation:eGFR > or=60 is in the Normal RangeeGFR < 60 may mean kidney diseaseeGFR < 15 may mean kidney failureRanges recommended by the National Kidney Foundation,http://nkdep.nih .gov CBC with [id number] 06:00:00 Test Item Value Reference Range Comments [...] Lymph Abs (test code=ALYMPH) 3.1 K/cumm 0.5-4.6 [place] Abs (test code=AMONO) 0.9 K/cumm 0.0-1.2 Eos Abs (test code=AEOS) 0.29 K/cumm 0.00-0.74 Baso Abs (test code=ABASO) 0.1 K/cumm 0.00-0.21 POC Glucose, [id number] 05:52:00 Test Item Value Reference Range Comments POC Glucose (test 342 mg/dL 70-115 If you consider your patient code=POCGLUC) critically ill, the Danial Accu-Chek InformII metershould not be used for Glucose determinations.Draw a venous Glucose and send to the Main Lab for Analysis.
[2018-09-23] MEDS ORDERED: NA CHLORIDE 0.9% 1,000 ML ONE (18:15)
[2018-09-23 18:41] LABS: ALT/SGPT 15 U/L (12-78); AST/SGOT 9 U/L (15-37); Albumin 3.3 g/dL (3.4-5.0); Alkaline Phosphatase 142 U/L (45-117); BUN Blood Urea Nitrogen 10 mg/dL (7-18); Bicarbonate 25 mmol/L (21-32); Bilirubin Direct < 0.1 mg/dL (0-0.2); Bilirubin Total 0.3 mg/dL (0.2-1.0); Glucose Level 374 mg/dL (74-106); Potassium 3.7 mmol/L (3.5-5.1); Protein, Total 7.3 g/dL (6.4-8.2); Sodium Level 134 mmol/L (136-145)
[2018-09-23 18:52] LABS: Absolute Lymphocytes (CBC) 2.7 K/uL (0.7-4.9); Absolute Monocytes 0.8 K/uL (0.1-1.3); Absolute Neutrophil 8.1 K/uL (1.8-8.0); Basophils % 0.9 % (0-1.3); Eosinophils % 0.8 % (0-4.4); Hematocrit 35.8 % (39.6-49.0); Lymphocytes % 23.1 % (15.3-44.8); MPV 8.1 fL (7.6-11.3); Monocytes % 6.4 % (3.3-12.3); RBC Red Blood Cell Count 5.46 M/uL (4.33-5.43)
[2018-09-23 19:28] LABS: Anisocytosis 1+; Blood Morphology Comment NOTED (NOT SEEN); Elliptocytes 1+; Hypochromasia 2+; Platelet Estimate ADEQ; Polychromasia 1+; Urine White Blood Cell Casts OK
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
[2018-09-23 21:16] VITALS: BP 127/96; O2SAT 98
== END 2018-09-23 20:25 | disposition home or self-care (01) ==
LOC: ER 17:11
DX: E11.65 Type 2 diabetes mellitus with hyperglycemia (principal); L02.416 Cutaneous abscess of left lower limb; F31.9 Bipolar disorder, unspecified; F20.9 Schizophrenia, unspecified; Z72.0 Tobacco use; Z88.3 Allergy status to other anti-infective agents; Z88.5 Allergy status to narcotic agent
CPT/HCPCS: 36415; 80048; 80076; 85025; 99283; J7030

== ENCOUNTER 2018-10-14 02:50 | Emergency (ER) | payer OTHER ==
--- OUTSIDE RECORDS SUMMARY | 2018-10-14 02:54 | XMS REPORT ---
:1985 [facility] [address] [place] [address] Care Team Providers Name Role Phone UNKNOWN, [...] Type Clinicians Facility Department ID 2017-12-16 Inpatient [facility] [id number] 09:23:00 2017-07-02 2017-07-07 Inpatient [facility] [id number] 14:57:00 22:44:00 [place] Results Test Description Test [...] the Main Lab for Analysis. Comprehensive Metabolic [id number] 07:08:00 Test Item Value Reference Range Comments [...] race is not provided, and the patient isAfrican-[place], multiply by 1.212. If sex is not [...] the National Kidney Foundation,http://nkdep.nih .gov CBC with [id number] 06:48:00 Test Item Value Reference Range Comments [...] Lymph Abs (test code=ALYMPH) 4.5 K/cumm 0.5-4.6 Mills Abs (test code=AMONO) 0.6 K/cumm 0.0-1.2 Eos Abs (test code=AEOS) 0.18 K/cumm 0.00-0.74 Baso Abs (test code=ABASO) 0.1 K/cumm 0.00-0.21 Microcytosis (test code=MICRO) Slight Hypochromic (test code=HYPO) Slight POC Glucose, [id number] 19:07:00 Test Item Value Reference Range Comments POC Glucose (test 227 mg/dL 70-115 If you consider your patient code=POCGLUC) critically ill, the [place] Accu-Chek InformII metershould not be used for Glucose determinations.Draw a venous Glucose and send to the Main Lab for Analysis. POC Glucose, [id number] 16:11:00 Test Item Value Reference Range Comments POC Glucose (test 266 mg/dL 70-115 If you consider your patient code=POCGLUC) critically ill, the [place] Accu-Chek InformII metershould not be used for Glucose determinations.Draw a venous Glucose and send to the Main Lab for Analysis. POC Glucose, [id number] 11:36:00 Test Item Value Reference Range Comments POC Glucose (test 69 mg/dL 70-115 If you consider your patient code=POCGLUC) critically ill, the [place] Accu-Chek InformII metershould not be used for Glucose determinations.Draw a venous Glucose and send to the Main Lab for Analysis. POC Glucose, [id number] 07:45:00 Test Item Value Reference Range Comments POC Glucose (test 234 mg/dL 70-115 If you consider your patient code=POCGLUC) critically ill, the [place] Accu-Chek InformII metershould not be used for Glucose determinations.Draw a venous Glucose and send to the Main Lab for Analysis. POC Glucose, [id number] 19:15:00 Test Item Value Reference Range Comments POC Glucose (test 148 mg/dL 70-115 If you consider your patient code=POCGLUC) critically ill, the [place] Accu-Chek InformII metershould not be used for Glucose determinations.Draw a venous Glucose and send to the Main Lab for Analysis. POC Glucose, [id number] 15:37:00 Test Item Value Reference Range Comments POC Glucose (test 133 mg/dL 70-115 If you consider your patient code=POCGLUC) critically ill, the [place] Accu-Chek InformII metershould not be used for Glucose determinations.Draw a venous Glucose and send to the Main Lab for Analysis. POC Glucose, [id number] 11:10:00 Test Item Value Reference Range Comments POC Glucose (test 203 mg/dL 70-115 Notify RN or MDIf you consider code=POCGLUC) your patient critically ill, the [place] Accu-Chek InformII metershould not be used for Glucose determinations.Draw a venous Glucose and send to the Main Lab for Analysis. POC Glucose, [id number] 07:29:00 Test Item Value Reference Range Comments POC Glucose (test 261 mg/dL 70-115 Notify RN or MDIf you consider code=POCGLUC) your patient critically ill, the [place] Accu-Chek InformII metershould not be used for Glucose determinations.Draw a venous Glucose and send to the Main Lab for Analysis. POC Glucose, [id number] 19:32:00 Test Item Value Reference Range Comments POC Glucose (test 226 mg/dL 70-115 If you consider your patient code=POCGLUC) critically ill, the [place] Accu-Chek InformII metershould not be used for Glucose determinations.Draw a venous Glucose and send to the Main Lab for Analysis. POC Glucose, [id number] 15:58:00 Test Item Value Reference Range Comments POC Glucose (test 138 mg/dL 70-115 Notify RN or MDIf you consider code=POCGLUC) your patient critically ill, the [place] Accu-Chek InformII metershould not be used for Glucose determinations.Draw a venous Glucose and send to the Main Lab for Analysis. POC Glucose, [id number] 11:48:00 Test Item Value Reference Range Comments POC Glucose (test 154 mg/dL 70-115 Notify RN or MDIf you consider code=POCGLUC) your patient critically ill, the [place] Accu-Chek InformII metershould not be used for Glucose determinations.Draw a venous Glucose and send to the Main Lab for Analysis. POC Glucose, [id number] 07:23:00 Test Item Value Reference Range Comments POC Glucose (test 131 mg/dL 70-115 Notify RN or MDIf you consider code=POCGLUC) your patient critically ill, the [place] Accu-Chek InformII metershould not be used for Glucose determinations.Draw a venous Glucose and send to the Main Lab for Analysis. POC Glucose, [id number] 19:38:00 Test Item Value Reference Range Comments POC Glucose (test 160 mg/dL 70-115 If you consider your patient code=POCGLUC) critically ill, the [place] Accu-Chek InformII metershould not be used for Glucose determinations.Draw a venous Glucose and send to the Main Lab for Analysis. POC Glucose, [id number] 17:27:00 Test Item Value Reference Range Comments POC Glucose (test 191 mg/dL 70-115 If you consider your patient code=POCGLUC) critically ill, the [place] Accu-Chek InformII metershould not be used for Glucose determinations.Draw a venous Glucose and send to the Main Lab for Analysis. POC Glucose, [id number] 14:19:00 Test Item Value Reference Range Comments POC Glucose (test 252 mg/dL 70-115 If you consider your patient code=POCGLUC) critically ill, the [place] Accu-Chek InformII metershould not be used for Glucose determinations.Draw a venous Glucose and send to the Main Lab for Analysis. POC Glucose, [id number] 11:41:00 Test Item Value Reference Range Comments POC Glucose (test 114 mg/dL 70-115 If you consider your patient code=POCGLUC) critically ill, the [place] Accu-Chek InformII metershould not be used for Glucose determinations.Draw a venous Glucose and send to the Main Lab for Analysis. POC Glucose, [id number] 05:58:00 Test Item Value Reference Range Comments POC Glucose (test 347 mg/dL 70-115 If you consider your patient code=POCGLUC) critically ill, the [place] Accu-Chek InformII metershould not be used for Glucose determinations.Draw a venous Glucose and send to the Main Lab for Analysis. POC Glucose, [id number] 19:27:00 Test Item Value Reference Range Comments POC Glucose (test 334 mg/dL 70-115 Notify RN or MDIf you consider code=POCGLUC) your patient critically ill, the [place] Accu-Chek InformII metershould not be used for Glucose determinations.Draw a venous Glucose and send to the Main Lab for Analysis. POC Glucose, [id number] 15:02:00 Test Item Value Reference Range Comments POC Glucose (test 72 mg/dL 70-115 If you consider your patient code=POCGLUC) critically ill, the [place] Accu-Chek InformII metershould not be used for Glucose determinations.Draw a venous Glucose and send to the Main Lab for Analysis. POC Glucose, [id number] 12:14:00 Test Item Value Reference Range Comments POC Glucose (test 110 mg/dL 70-115 If you consider your patient code=POCGLUC) critically ill, the [place] Accu-Chek InformII metershould not be used for Glucose determinations.Draw a venous Glucose and send to the Main Lab for Analysis. POC Glucose, [id number] 06:03:00 Test Item Value Reference Range Comments POC Glucose (test 224 mg/dL 70-115 If you consider your patient code=POCGLUC) critically ill, the [place] Accu-Chek InformII metershould not be used for Glucose determinations.Draw a venous Glucose and send to the Main Lab for Analysis. POC Glucose, [id number] 19:29:00 Test Item Value Reference Range Comments POC Glucose (test 300 mg/dL 70-115 Notify RN or MDIf you consider code=POCGLUC) your patient critically ill, the [place] Accu-Chek InformII metershould not be used for Glucose determinations.Draw a venous Glucose and send to the Main Lab for Analysis. POC Glucose, [id number] 16:00:00 Test Item Value Reference Range Comments POC Glucose (test 283 mg/dL 70-115 Notify RN or MDIf you consider code=POCGLUC) your patient critically ill, the [place] Accu-Chek InformII metershould not be used for Glucose determinations.Draw a venous Glucose and send to the Main Lab for Analysis. RPR, [id number] 14:24:00 Test Item Value Reference Range Comments RPR (test code=RPR) Non-Reactive Non-Reactive POC Glucose, [id number] 11:09:00 Test Item Value Reference Range Comments [...] TSH (test code=TSH) 2.05 mIU/mL 0.270-4.200 Lipid [id number] 08:56:00 Test Item Value Reference Range Comments Cholesterol (test 215 mg/dL 0-200 code=CHOL) Triglycerides (test 370 mg/dL 9-200 code=TRIG) HDL (test code=HDL) 33 mg/dL 40-60 Chol/HDL (test 6.5 Ratio 0.0-5.0 code=CHOLPHDL) LDL, Calculated (test 108 0-130 (NOTE)RISK OF HEART code=LDLC) DISEASEPublished by [place] Heart AssociationAnalyte Optimal Boderline Increased RiskCHOL <200 200-239 >240TRIG <150 150-199 >200HDL Male: >60 <40HDL Female: >60 <50LDL <100 130-159 >160LDL NEAR OPTIMAL IS 100-129 VLDL (test code=VLDL) 74 mg/dL 5-40 LDL/HDL (test code=LDLPHDL) 3 POC Glucose, [id number] 05:44:00 Test Item Value Reference Range Comments POC Glucose (test 229 mg/dL 70-115 Notify RN or MDIf you consider code=POCGLUC) your patient critically ill, the [place] Accu-Chek InformII metershould not be used for Glucose determinations.Draw a venous Glucose and send to the Main Lab for Analysis. POC Glucose, [id number] 11:20:00 Test Item Value Reference Range Comments POC Glucose (test 160 mg/dL 70-115 If you consider your patient code=POCGLUC) critically ill, the [place] Accu-Chek InformII metershould not be used for Glucose determinations.Draw a venous Glucose and send to the Main Lab for Analysis. POC Glucose, [id number] 07:41:00 Test Item Value Reference Range Comments POC Glucose (test 121 mg/dL 70-115 If you consider your patient code=POCGLUC) critically ill, the [place] Accu-Chek InformII metershould not be used for Glucose determinations.Draw a venous Glucose and send to the Main Lab for Analysis. POC Glucose, [id number] 21:24:00 Test Item Value Reference Range Comments POC Glucose (test 108 mg/dL 70-115 If you consider your patient code=POCGLUC) critically ill, the [place] Accu-Chek InformII metershould not be used for Glucose determinations.Draw a venous Glucose and send to the Main Lab for Analysis. POC Glucose, [id number] 15:55:00 Test Item Value Reference Range Comments POC Glucose (test 160 mg/dL 70-115 Notify RN or MDIf you consider code=POCGLUC) your patient critically ill, the [place] Accu-Chek InformII metershould not be used for Glucose determinations.Draw a venous Glucose and send to the Main Lab for Analysis. POC Glucose, [id number] 11:21:00 Test Item Value Reference Range Comments POC Glucose (test 111 mg/dL 70-115 If you consider your patient code=POCGLUC) critically ill, the [place] Accu-Chek InformII metershould not be used for Glucose determinations.Draw a venous Glucose and send to the Main Lab for Analysis. POC Glucose, [id number] 08:06:00 Test Item Value Reference Range Comments POC Glucose (test 135 mg/dL 70-115 If you consider your patient code=POCGLUC) critically ill, the [place] Accu-Chek InformII metershould not be used for Glucose determinations.Draw a venous Glucose and send to the Main Lab for Analysis. POC Glucose, [id number] 22:43:00 Test Item Value Reference Range Comments POC Glucose (test 106 mg/dL 70-115 If you consider your patient code=POCGLUC) critically ill, the [place] Accu-Chek InformII metershould not be used for Glucose determinations.Draw a venous Glucose and send to the Main Lab for Analysis. POC Glucose, [id number] 16:42:00 Test Item Value Reference Range Comments POC Glucose (test 96 mg/dL 70-115 If you consider your patient code=POCGLUC) critically ill, the [place] Accu-Chek InformII metershould not be used for Glucose determinations.Draw a venous Glucose and send to the Main Lab for Analysis. POC Glucose, [id number] 11:10:00 Test Item Value Reference Range Comments POC Glucose (test 149 mg/dL 70-115 Notify RN or MDIf you consider code=POCGLUC) your patient critically ill, the [place] Accu-Chek InformII metershould not be used for Glucose determinations.Draw a venous Glucose and send to the Main Lab for Analysis. POC Glucose, [id number] 07:26:00 Test Item Value Reference Range Comments POC Glucose (test 124 mg/dL 70-115 If you consider your patient code=POCGLUC) critically ill, the [place] Accu-Chek InformII metershould not be used for Glucose determinations.Draw a venous Glucose and send to the Main Lab for Analysis. POC Glucose, [id number] 21:16:00 Test Item Value Reference Range Comments POC Glucose (test 164 mg/dL 70-115 Notify RN or MDIf you consider code=POCGLUC) your patient critically ill, the [place] Accu-Chek InformII metershould not be used for Glucose determinations.Draw a venous Glucose and send to the Main Lab for Analysis. POC Glucose, [id number] 16:34:00 Test Item Value Reference Range Comments POC Glucose (test 100 mg/dL 70-115 If you consider your patient code=POCGLUC) critically ill, the [place] Accu-Chek InformII metershould not be used for Glucose determinations.Draw a venous Glucose and send to the Main Lab for Analysis. POC Glucose, [id number] 11:06:00 Test Item Value Reference Range Comments POC Glucose (test 120 mg/dL 70-115 If you consider your patient code=POCGLUC) critically ill, the [place] Accu-Chek InformII metershould not be used for Glucose determinations.Draw a venous Glucose and send to the Main Lab for Analysis. POC Glucose, [id number] 07:30:00 Test Item Value Reference Range Comments POC Glucose (test 80 mg/dL 70-115 If you consider your patient code=POCGLUC) critically ill, the [place] Accu-Chek InformII metershould not be used for Glucose determinations.Draw a venous Glucose and send to the Main Lab for Analysis. POC Glucose, [id number] 21:17:00 Test Item Value Reference Range Comments POC Glucose (test 175 mg/dL 70-115 Notify RN or MDIf you consider code=POCGLUC) your patient critically ill, the [place] Accu-Chek InformII metershould not be used for Glucose determinations.Draw a venous Glucose and send to the Main Lab for Analysis. POC Glucose, [id number] 17:46:00 Test Item Value Reference Range Comments POC Glucose (test 128 mg/dL 70-115 If you consider your patient code=POCGLUC) critically ill, the [place] Accu-Chek InformII metershould not be used for Glucose determinations.Draw a venous Glucose and send to the Main Lab for Analysis. POC Glucose, [id number] 11:35:00 Test Item Value Reference Range Comments POC Glucose (test 134 mg/dL 70-115 If you consider your patient code=POCGLUC) critically ill, the [place] Accu-Chek InformII metershould not be used for Glucose determinations.Draw a venous Glucose and send to the Main Lab for Analysis. POC Glucose, [id number] 08:10:00 Test Item Value Reference Range Comments POC Glucose (test 220 mg/dL 70-115 If you consider your patient code=POCGLUC) critically ill, the [place] Accu-Chek InformII metershould not be used for Glucose determinations.Draw a venous Glucose and send to the Main Lab for Analysis. Comprehensive Metabolic [id number] 06:52:00 Test Item Value Reference Range Comments [...] race is not provided, and the patient isAfrican-[place], multiply by 1.212. If sex is not [...] the National Kidney Foundation,http://nkdep.nih .gov CBC with [id number] 06:34:00 Test Item Value Reference Range Comments [...] Lymph Abs (test code=ALYMPH) 2.4 K/cumm 0.5-4.6 Mills Abs (test code=AMONO) 0.7 K/cumm 0.0-1.2 Eos Abs (test code=AEOS) 0.19 K/cumm 0.00-0.74 Baso Abs (test code=ABASO) 0.1 K/cumm 0.00-0.21 Microcytosis (test code=MICRO) Slight POC Glucose, [id number] 20:28:00 Test Item Value Reference Range Comments POC Glucose (test 211 mg/dL 70-115 If you consider your patient code=POCGLUC) critically ill, the [place] Accu-Chek InformII metershould not be used for Glucose determinations.Draw a venous Glucose and send to the Main Lab for Analysis. POC Glucose, [id number] 17:09:00 Test Item Value Reference Range Comments POC Glucose (test 146 mg/dL 70-115 If you consider your patient code=POCGLUC) critically ill, the [place] Accu-Chek InformII metershould not be used for Glucose determinations.Draw a venous Glucose and send to the Main Lab for Analysis. POC Glucose, [id number] 11:53:00 Test Item Value Reference Range Comments POC Glucose (test 136 mg/dL 70-115 If you consider your patient code=POCGLUC) critically ill, the [place] Accu-Chek InformII metershould not be used for Glucose determinations.Draw a venous Glucose and send to the Main Lab for Analysis. POC Glucose, [id number] 07:57:00 Test Item Value Reference Range Comments POC Glucose (test 143 mg/dL 70-115 If you consider your patient code=POCGLUC) critically ill, the [place] Accu-Chek InformII metershould not be used for Glucose determinations.Draw a venous Glucose and send to the Main Lab for Analysis. POC Glucose, [id number] 20:38:00 Test Item Value Reference Range Comments POC Glucose (test 152 mg/dL 70-115 Notify RN or MDIf you consider code=POCGLUC) your patient critically ill, the [place] Accu-Chek InformII metershould not be used for Glucose determinations.Draw a venous Glucose and send to the Main Lab for Analysis. POC Glucose, [id number] 16:49:00 Test Item Value Reference Range Comments POC Glucose (test 171 mg/dL 70-115 Notify RN or MDIf you consider code=POCGLUC) your patient critically ill, the [place] Accu-Chek InformII metershould not be used for Glucose determinations.Draw a venous Glucose and send to the Main Lab for Analysis. POC Glucose, [id number] 11:10:00 Test Item Value Reference Range Comments POC Glucose (test 160 mg/dL 70-115 Notify RN or MDIf you consider code=POCGLUC) your patient critically ill, the [place] Accu-Chek InformII metershould not be used for Glucose determinations.Draw a venous Glucose and send to the Main Lab for Analysis. POC Glucose, [id number] 07:36:00 Test Item Value Reference Range Comments POC Glucose (test 126 mg/dL 70-115 If you consider your patient code=POCGLUC) critically ill, the [place] Accu-Chek InformII metershould not be used for Glucose determinations.Draw a venous Glucose and send to the Main Lab for Analysis. POC Glucose, [id number] 20:51:00 Test Item Value Reference Range Comments POC Glucose (test 165 mg/dL 70-115 Notify RN or MDIf you consider code=POCGLUC) your patient critically ill, the [place] Accu-Chek InformII metershould not be used for Glucose determinations.Draw a venous Glucose and send to the Main Lab for Analysis. POC Glucose, [id number] 16:42:00 Test Item Value Reference Range Comments POC Glucose (test 133 mg/dL 70-115 If you consider your patient code=POCGLUC) critically ill, the [place] Accu-Chek InformII metershould not be used for Glucose determinations.Draw a venous Glucose and send to the Main Lab for Analysis. POC Glucose, [id number] 11:19:00 Test Item Value Reference Range Comments POC Glucose (test 250 mg/dL 70-115 Notify RN or MDIf you consider code=POCGLUC) your patient critically ill, the [place] Accu-Chek InformII metershould not be used for Glucose determinations.Draw a venous Glucose and send to the Main Lab for Analysis. Culture, [id number] 08:19:00Specimen: UrineCollected: 07/10/2017 12:47 Status: Final Last Updated: 07/12/2017 08:19 Culture Result (Final) (Final ) 07/11/17 No growth 24 hours 07/12/17 No growth 48 hoursPOC Glucose, [id number] 07:26:00 Test Item Value Reference Range Comments POC Glucose (test 131 mg/dL 70-115 Notify RN or MDIf you consider code=POCGLUC) your patient critically ill, the [place] Accu-Chek InformII metershould not be used for Glucose determinations.Draw a venous Glucose and send to the Main Lab for Analysis. POC Glucose, [id number] 20:55:00 Test Item Value Reference Range Comments POC Glucose (test 140 mg/dL 70-115 If you consider your patient code=POCGLUC) critically ill, the [place] Accu-Chek InformII metershould not be used for Glucose determinations.Draw a venous Glucose and send to the Main Lab for Analysis. POC Glucose, [id number] 16:13:00 Test Item Value Reference Range Comments POC Glucose (test 151 mg/dL 70-115 Notify RN or MDIf you consider code=POCGLUC) your patient critically ill, the [place] Accu-Chek InformII metershould not be used for Glucose determinations.Draw a venous Glucose and send to the Main Lab for Analysis. POC Glucose, [id number] 11:43:00 Test Item Value Reference Range Comments POC Glucose (test 170 mg/dL 70-115 Notify RN or MDIf you consider code=POCGLUC) your patient critically ill, the [place] Accu-Chek InformII metershould not be used for Glucose determinations.Draw a venous Glucose and send to the Main Lab for Analysis. POC Glucose, [id number] 07:23:00 Test Item Value Reference Range Comments POC Glucose (test 207 mg/dL 70-115 Notify RN or MDIf you consider code=POCGLUC) your patient critically ill, the [place] Accu-Chek InformII metershould not be used for Glucose determinations.Draw a venous Glucose and send to the Main Lab for Analysis. POC Glucose, [id number] 20:24:00 Test Item Value Reference Range Comments POC Glucose (test 208 mg/dL 70-115 If you consider your patient code=POCGLUC) critically ill, the [place] Accu-Chek InformII metershould not be used for Glucose determinations.Draw a venous Glucose and send to the Main Lab for Analysis. POC Glucose, [id number] 17:14:00 Test Item Value Reference Range Comments POC Glucose (test 158 mg/dL 70-115 If you consider your patient code=POCGLUC) critically ill, the [place] Accu-Chek InformII metershould not be used for Glucose determinations.Draw a venous Glucose and send to the Main Lab for Analysis. Urinalysis [id number] 13:04:00 Test Item Value Reference Range Comments Color (test code=COLOR) Straw Yellow,Straw,Pl yellow Clarity (test code=CLAR) Clear Clear Specific [place] (test code=SPGR) 1.010 1.001-1.035 pH (test code=PH) [...] Exam (test code=MEXAM) Not indicated POC Glucose, [id number] 11:48:00 Test Item Value Reference Range Comments POC Glucose (test 135 mg/dL 70-115 If you consider your patient code=POCGLUC) critically ill, the [place] Accu-Chek InformII metershould not be used for Glucose determinations.Draw a venous Glucose and send to the Main Lab for Analysis. POC Glucose, [id number] 07:47:00 Test Item Value Reference Range Comments POC Glucose (test 173 mg/dL 70-115 If you consider your patient code=POCGLUC) critically ill, the [place] Accu-Chek InformII metershould not be used for Glucose determinations.Draw a venous Glucose and send to the Main Lab for Analysis. Basic Metabolic [id number] 05:18:00 Test Item Value Reference Range Comments [...] race is not provided, and the patient isAfrican-[place], multiply by 1.212. If sex is not [...] the National Kidney Foundation,http://nkdep.nih .gov CBC with [id number] 04:59:00 Test Item Value Reference Range Comments [...] Lymph Abs (test code=ALYMPH) 2.7 K/cumm 0.5-4.6 Mills Abs (test code=AMONO) 0.8 K/cumm 0.0-1.2 Eos Abs (test code=AEOS) 0.26 K/cumm 0.00-0.74 Baso Abs (test code=ABASO) 0.0 K/cumm 0.00-0.21 POC Glucose, [id number] 20:59:00 Test Item Value Reference Range Comments POC Glucose (test 199 mg/dL 70-115 Notify RN or MDIf you consider code=POCGLUC) your patient critically ill, the [place] Accu-Chek InformII metershould not be used for Glucose determinations.Draw a venous Glucose and send to the Main Lab for Analysis. POC Glucose, [id number] 16:26:00 Test Item Value Reference Range Comments POC Glucose (test 170 mg/dL 70-115 Notify RN or MDIf you consider code=POCGLUC) your patient critically ill, the [place] Accu-Chek InformII metershould not be used for Glucose determinations.Draw a venous Glucose and send to the Main Lab for Analysis. POC Glucose, [id number] 11:41:00 Test Item Value Reference Range Comments POC Glucose (test 246 mg/dL 70-115 If you consider your patient code=POCGLUC) critically ill, the [facility] Accu-Chek InformII metershould not be used for Glucose determinations.Draw a venous Glucose and send to the Main Lab for Analysis. Glycosylated [id number] 07:39:00 Test Item Value Reference Range Comments HBA1c (test code=HBA1C) 9.1 % 4.8-5.9 POC Glucose, [id number] 07:36:00 Test Item Value Reference Range Comments POC Glucose (test 206 mg/dL 70-115 If you consider your patient code=POCGLUC) critically ill, the [place] Accu-Chek InformII metershould not be used for Glucose determinations.Draw a venous Glucose and send to the Main Lab for Analysis. CBC with [id number] 06:09:00 Test Item Value Reference Range Comments [...] Lymph Abs (test code=ALYMPH) 3.5 K/cumm 0.5-4.6 Mills Abs (test code=AMONO) 1.0 K/cumm 0.0-1.2 Eos Abs (test code=AEOS) 0.19 K/cumm 0.00-0.74 Baso Abs (test code=ABASO) 0.1 K/cumm 0.00-0.21 Microcytosis (test code=MICRO) Slight Comprehensive Metabolic [id number] 06:00:00 Test Item Value Reference Range Comments [...] race is not provided, and the patient isAfrican-[place], multiply by 1.212. If sex is not provided, and thepatient is female, multiply by 0.742. Results for patients <18 years ofage have not been validated by the MDRD study and should be interpretedwith caution.eGFR Result Interpretation:eGFR > or=60 is in the Normal RangeeGFR < 60 may mean kidney diseaseeGFR < 15 may mean kidney failureRanges recommended by the National Kidney Foundation,http://nkdep.nih .gov Magnesium, [id number] 06:00:00 Test Item Value Reference Range Comments Magnesium (test code=MG) 2.2 mg/dL 1.7-2.5 [id number] 06:00:00 Test Item Value Reference Range Comments Phosphorus (test code=PO4) 2.8 mg/dL 2.70-4.50 POC Glucose, [id number] 20:44:00 Test Item Value Reference Range Comments POC Glucose (test 199 mg/dL 70-115 If you consider your patient code=POCGLUC) critically ill, the [facility] Accu-Chek InformII metershould not be used for Glucose determinations.Draw a venous Glucose and send to the Main Lab for Analysis. POC Glucose, [id number] 16:28:00 Test Item Value Reference Range Comments POC Glucose (test 242 mg/dL 70-115 Notify RN or MDIf you consider code=POCGLUC) your patient critically ill, the [facility] Accu-Chek InformII metershould not be used for Glucose determinations.Draw a venous Glucose and send to the Main Lab for Analysis. POC Glucose, [id number] 13:37:00 Test Item Value Reference Range Comments POC Glucose (test 131 mg/dL 70-115 If you consider your patient code=POCGLUC) critically ill, the [facility] Accu-Chek InformII metershould not be used for Glucose determinations.Draw a venous Glucose and send to the Main Lab for Analysis. POC Glucose, [id number] 12:14:00 Test Item Value Reference Range Comments POC Glucose (test 100 mg/dL 70-115 If you consider your patient code=POCGLUC) critically ill, the [facility] Accu-Chek InformII metershould not be used for Glucose determinations.Draw a venous Glucose and send to the Main Lab for Analysis. POC Glucose, [id number] 07:30:00 Test Item Value Reference Range Comments POC Glucose (test 123 mg/dL 70-115 If you consider your patient code=POCGLUC) critically ill, the [facility] Accu-Chek InformII metershould not be used for Glucose determinations.Draw a venous Glucose and send to the Main Lab for Analysis. Basic Metabolic [id number] 06:05:00 Test Item Value Reference Range Comments [...] race is not provided, and the patient isAfrican-[place], multiply by 1.212. If sex is not [...] the National Kidney Foundation,http://nkdep.nih .gov CBC with [id number] 05:44:00 Test Item Value Reference Range Comments [...] Lymph Abs (test code=ALYMPH) 4.8 K/cumm 0.5-4.6 Mills Abs (test code=AMONO) 0.8 K/cumm 0.0-1.2 Eos Abs (test code=AEOS) 0.34 K/cumm 0.00-0.74 Baso Abs (test code=ABASO) 0.1 K/cumm 0.00-0.21 POC Glucose, [id number] 20:29:00 Test Item Value Reference Range Comments POC Glucose (test 152 mg/dL 70-115 If you consider your patient code=POCGLUC) critically ill, the [facility] Accu-Chek InformII metershould not be used for Glucose determinations.Draw a venous Glucose and send to the Main Lab for Analysis. Antibody Screen - [id number] 17:58:00 Test Item Value Reference Range Comments Antibody Screen (test code=ABSCR) Negative Blood Type and [id number] 17:44:00 Test Item Value Reference Range Comments ABO type (test code=ABO) A Rh Type (test code=RH) Positive POC Glucose, [id number] 16:09:00 Test Item Value Reference Range Comments POC Glucose (test 192 mg/dL 70-115 If you consider your patient code=POCGLUC) critically ill, the [facility] Accu-Chek InformII metershould not be used for Glucose determinations.Draw a venous Glucose and send to the Main Lab for Analysis. POC Glucose, [id number] 12:11:00 Test Item Value Reference Range Comments POC Glucose (test 249 mg/dL 70-115 If you consider your patient code=POCGLUC) critically ill, the [facility] Accu-Chek InformII metershould not be used for Glucose determinations.Draw a venous Glucose and send to the Main Lab for Analysis. MRI LWR EXTRM NON-JNT WO [id number] 09:25:10LOCATION: [id number]: MRI LWR EXTRM NON-JNT WO CONTRST-LEFTINDICATION: LEFT [...] concerning for injury.US DUPLX LWR EXT ART/BPG, [id number] 08: 50:53US DUPLX LWR EXT ART/BPG, BILATCLINICAL HISTORY: non-healing woundsTechnique: Grayscale, color, and spectral sonography of the bilateral lower extremity arteries was performed.FINDINGS:Right leg (waveform / peak systolic velocity)HEELER MACHINE: Triphasic 95 cm/secProx SFA: Triphasic 92 cm/secMid SFA: Triphasic 81 cm/secDistal SFA: Triphasic 83 cm/ secPopliteal: Triphasic 84 cm/secPTA: Monophasic 93 cm/ secATA: Triphasic 32 cm/secDPA: Not imaged/bandaging Left leg (waveform / peak systolic velocity)HEELER MACHINE: Triphasic 88 cm/secProx SFA: Triphasic 93 cm/secMid SFA: Triphasic 82 cm/ secDistal SFA: Triphasic 49 cm/secPopliteal: Triphasic 60 cm/secPTA: Triphasic 73 cm/secATA: Triphasic 93 cm/secDPA: Not imaged/bandaging IMPRESSION: 1. Limited exam. Thedorsalis pedis arteries are not imaged.2. Abnormal monophasic waveform in the right posterior tibial artery.3. Otherwise unremarkable exam.Location: R16CBC with [id number] 08:22:00 Test Item Value Reference Range Comments [...] Lymph Abs (test code=ALYMPH) 3.6 K/cumm 0.5-4.6 Mills Abs (test code=AMONO) 0.6 K/cumm 0.0-1.2 Eos Abs (test code=AEOS) 0.37 K/cumm 0.00-0.74 Baso Abs (test code=ABASO) 0.1 K/cumm 0.00-0.21 Basic Metabolic [id number] 08:03:00 Test Item Value Reference Range Comments [...] race is not provided, and the patient isAfrican-[place], multiply by 1.212. If sex is not [...] the National Kidney Foundation,http://nkdep.nih .gov POC Glucose, [id number] 07:30:00 Test Item Value Reference Range Comments POC Glucose (test 110 mg/dL 70-115 If you consider your patient code=POCGLUC) critically ill, the [facility] Accu-Chek InformII metershould not be used for Glucose determinations.Draw a venous Glucose and send to the Main Lab for Analysis. POC Glucose, [id number] 19:57:00 Test Item Value Reference Range Comments POC Glucose (test 124 mg/dL 70-115 If you consider your patient code=POCGLUC) critically ill, the [facility] Accu-Chek InformII metershould not be used for Glucose determinations.Draw a venous Glucose and send to the Main Lab for Analysis. POC Glucose, [id number] 16:10:00 Test Item Value Reference Range Comments POC Glucose (test 114 mg/dL 70-115 Notify RN or MDIf you consider code=POCGLUC) your patient critically ill, the [facility] Accu-Chek InformII metershould not be used for Glucose determinations.Draw a venous Glucose and send to the Main Lab for Analysis. POC Glucose, [id number] 11:18:00 Test Item Value Reference Range Comments POC Glucose (test 203 mg/dL 70-115 Notify RN or MDIf you consider code=POCGLUC) your patient critically ill, the [facility] Accu-Chek InformII metershould not be used for Glucose determinations.Draw a venous Glucose and send to the Main Lab for Analysis. Culture, Wound [id number] 09:58:00Specimen: FootCollected: 2016 17:00 Status: Final Last [...] Streptococcus Beta Hemolytic Streptococcus Group GPOC Glucose, [id number] 07:23:00 Test Item Value Reference Range Comments POC Glucose (test 197 mg/dL 70-115 Notify RN or MDIf you consider code=POCGLUC) your patient critically ill, the [facility] Accu-Chek InformII metershould not be used for Glucose determinations.Draw a venous Glucose and send to the Main Lab for Analysis. POC Glucose, [id number] 16:09:00 Test Item Value Reference Range Comments POC Glucose (test 194 mg/dL 70-115 If you consider your patient code=POCGLUC) critically ill, the [facility] Accu-Chek InformII metershould not be used for Glucose determinations.Draw a venous Glucose and send to the Main Lab for Analysis. POC Glucose, [id number] 11:33:00 Test Item Value Reference Range Comments POC Glucose (test 193 mg/dL 70-115 If you consider your patient code=POCGLUC) critically ill, the [facility] Accu-Chek InformII metershould not be used for Glucose determinations.Draw a venous Glucose and send to the Main Lab for Analysis. MRI LWR EXTRM NON-JNT WO [id number] 08:18:56EXAM: MRI right foot without contrastLocation: [id number]: History of amputation, rule out osteomyelitisCOMPARISON: Left [...] stump.3. Post amputation changes as described.POC Glucose, [id number] 07:15:00 Test Item Value Reference Range Comments POC Glucose (test 140 mg/dL 70-115 If you consider your patient code=POCGLUC) critically ill, the [facility] Accu-Chek InformII metershould not be used for Glucose determinations.Draw a venous Glucose and send to the Main Lab for Analysis. Sed Rate ESR ([place])2017-07-05 06:40:00 Test Item Value Reference Range Comments ESR (test code=HESR) 54 mm/Hr 0-9 C-Reactive Protein, [id number] 05:41:00 Test Item Value Reference Range Comments CRP (test code=CRP) 34.7 mg/L 0.0-5.0 POC Glucose, [id number] 21:22:00 Test Item Value Reference Range Comments POC Glucose (test 141 mg/dL 70-115 If you consider your patient code=POCGLUC) critically ill, the [facility] Accu-Chek InformII metershould not be used for Glucose determinations.Draw a venous Glucose and send to the Main Lab for Analysis. POC Glucose, [id number] 16:09:00 Test Item Value Reference Range Comments POC Glucose (test 156 mg/dL 70-115 If you consider your patient code=POCGLUC) critically ill, the [facility] Accu-Chek InformII metershould not be used for Glucose determinations.Draw a venous Glucose and send to the Main Lab for Analysis. POC Glucose, [id number] 12:05:00 Test Item Value Reference Range Comments POC Glucose (test 170 mg/dL 70-115 If you consider your patient code=POCGLUC) critically ill, the [facility] Accu-Chek InformII metershould not be used for Glucose determinations.Draw a venous Glucose and send to the Main Lab for Analysis. XR FOOT [id number] 08:56:55XR FOOT 2V-LEFTLOCATION: [id number]:left foot ulcer COMPARISON: None.DISCUSSION:Frontal and lateral radiographs [...] stump.2. No definite acute osseous abnormalities.XR FOOT 2A-[id number] 08:53:30XR FOOT 2V- RIGHTLOCATION: [id number]:right foot stump ulcer COMPARISON: None.DISCUSSION:Frontal and lateral radiographs of the right foot were obtained. Amputation changes at the proximal metatarsals are noted.No definite suspicious focal osseous destruction or periosteal reactionis seen.Otherwise, no acute fracture or dislocation is seen.The joint spaces are grossly preserved.IMPRESSION:1. 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 No definite acute osseous abnormalities.POC Glucose, [id number] 07:50:00 Test Item Value Reference Range Comments POC Glucose (test 139 mg/dL 70-115 If you consider your patient code=POCGLUC) critically ill, the [facility] Accu-Chek InformII metershould not be used for Glucose determinations.Draw a venous Glucose and send to the Main Lab for Analysis. CBC with [id number] 06:19:00 Test Item Value Reference Range Comments [...] Lymph Abs (test code=ALYMPH) 2.7 K/cumm 0.5-4.6 Mills Abs (test code=AMONO) 0.6 K/cumm 0.0-1.2 Eos Abs (test code=AEOS) 0.32 K/cumm 0.00-0.74 Baso Abs (test code=ABASO) 0.1 K/cumm 0.00-0.21 Lipid [id number] 06:15:00 Test Item Value Reference Range Comments Cholesterol (test 133 mg/dL 0-200 code=CHOL) Triglycerides (test 164 mg/dL 9-200 code=TRIG) HDL (test code=HDL) 31 mg/dL 40-60 Chol/HDL (test 4.3 Ratio 0.0-5.0 code=CHOLPHDL) LDL, Calculated (test 69 0-130 (NOTE)RISK OF HEART code=LDLC) DISEASEPublished by [place] Heart AssociationAnalyte Optimal Boderline Increased RiskCHOL <200 200-239 >240TRIG <150 150-199 >200HDL Male: >60 <40HDL Female: >60 <50LDL <100 130-159 >160LDL NEAR OPTIMAL IS 100-129 VLDL (test code=VLDL) 33 mg/dL 5-40 LDL/HDL (test code=LDLPHDL) 2 POC Glucose, [id number] 17:14:00 Test Item Value Reference Range Comments POC Glucose (test 129 mg/dL 70-115 If you consider your patient code=POCGLUC) critically ill, the [facility] Accu-Chek InformII metershould not be used for Glucose determinations.Draw a venous Glucose and send to the Main Lab for Analysis. RPR, [id number] 12:26:00 Test Item Value Reference Range Comments RPR (test code=RPR) Non-Reactive Non-Reactive POC Glucose, [id number] 12:05:00 Test Item Value Reference Range Comments POC Glucose (test 173 mg/dL 70-115 If you consider your patient code=POCGLUC) critically ill, the [facility] Accu-Chek InformII metershould not be used for Glucose determinations.Draw a venous Glucose and send to the Main Lab for Analysis. POC Glucose, [id number] 07:57:00 Test Item Value Reference Range Comments POC Glucose (test 144 mg/dL 70-115 If you consider your patient code=POCGLUC) critically ill, the [facility] Accu-Chek InformII metershould not be used for Glucose determinations.Draw a venous Glucose and send to the Main Lab for Analysis. POC Glucose, [id number] 06:19:00 Test Item Value Reference Range Comments [...] TSH (test code=TSH) 2.08 mIU/mL 0.270-4.200 Lipid [id number] 23:52:00 Test Item Value Reference Range Comments Cholesterol (test 171 mg/dL 0-200 code=CHOL) Triglycerides (test 171 mg/dL 9-200 code=TRIG) HDL (test code=HDL) 37 mg/dL 40-60 Chol/HDL (test 4.6 Ratio 0.0-5.0 code=CHOLPHDL) LDL, Calculated (test 100 0-130 (NOTE)RISK OF HEART code=LDLC) DISEASEPublished by [place] Heart AssociationAnalyte Optimal Boderline Increased RiskCHOL <200 200-239 >240TRIG <150 150-199 >200HDL Male: >60 <40HDL Female: >60 <50LDL <100 130-159 >160LDL NEAR OPTIMAL IS 100-129 VLDL (test code=VLDL) 34 mg/dL 5-40 LDL/HDL (test code=LDLPHDL) 3 POC Glucose, [id number] 20:03:00 Test Item Value Reference Range Comments POC Glucose (test 221 mg/dL 70-115 If you consider your patient code=POCGLUC) critically ill, the [facility] Accu-Chek InformII metershould not be used for Glucose determinations.Draw a venous Glucose and send to the Main Lab for Analysis. POC Glucose, [id number] 16:47:00 Test Item Value Reference Range Comments POC Glucose (test 304 mg/dL 70-115 If you consider your patient code=POCGLUC) critically ill, the [facility] Accu-Chek InformII metershould not be used for Glucose determinations.Draw a venous Glucose and send to the Main Lab for Analysis. POC Glucose, [id number] 15:20:00 Test Item Value Reference Range Comments POC Glucose (test 368 mg/dL 70-115 If you consider your patient code=POCGLUC) critically ill, the [facility] Accu-Chek InformII metershould not be used for Glucose determinations.Draw a venous Glucose and send to the Main Lab for Analysis. [id number] 08:27:00 Test Item Value Reference Range Comments [...] Urine (test <0.01 g/dL 0.00-0.01 code=ETOHU) Urinalysis [id number] 07:59:00 Test Item Value Reference Range Comments Color (test code=COLOR) Yellow Yellow,Straw,Pl yellow Clarity (test code=CLAR) Clear Clear Specific [place] (test code=SPGR) 1.026 1.001-1.035 pH (test code=PH) [...] Bacteria (test code=BACT) Few /HPF POC Glucose, [id number] 07:23:00 Test Item Value Reference Range Comments POC Glucose (test 174 mg/dL 70-115 If you consider your patient code=POCGLUC) critically ill, the [facility] Accu-Chek InformII metershould not be used for Glucose determinations.Draw a venous Glucose and send to the Main Lab for Analysis. [id number] 06:52:00 Test Item Value Reference Range Comments Acetone [Serum] (test code=ACETONE) Negative Negative Comprehensive Metabolic [id number] 06:19:00 Test Item Value Reference Range Comments [...] race is not provided, and the patient isAfrican-[place], multiply by 1.212. If sex is not [...] the National Kidney Foundation,http://nkdep.nih .gov CBC with [id number] 06:00:00 Test Item Value Reference Range Comments [...] Lymph Abs (test code=ALYMPH) 3.1 K/cumm 0.5-4.6 Mills Abs (test code=AMONO) 0.9 K/cumm 0.0-1.2 Eos Abs (test code=AEOS) 0.29 K/cumm 0.00-0.74 Baso Abs (test code=ABASO) 0.1 K/cumm 0.00-0.21 POC Glucose, [id number] 05:52:00 Test Item Value Reference Range Comments POC Glucose (test 342 mg/dL 70-115 If you consider your patient code=POCGLUC) critically ill, the [facility] Accu-Chek InformII metershould not be used for Glucose determinations.Draw a venous Glucose and send to the Main Lab for Analysis.
[2018-10-14] MEDS ORDERED: NA CHLORIDE 0.9% 1,000 ML ONE (03:46)
[2018-10-14 03:47] LABS: Barbiturates NEGATIVE (NEGATIVE); Benzodiazepines NEGATIVE (NEGATIVE); Cocaine NEGATIVE (NEGATIVE); METHAMPHETAM NEGATIVE (NEGATIVE); Methadone NEGATIVE (NEGATIVE); Opiates NEGATIVE (NEGATIVE); Phencyclidine NEGATIVE (NEGATIVE); THC Cannibis NEGATIVE (NEGATIVE)
[2018-10-14 03:54] LABS: Absolute Lymphocytes (CBC) 2.6 K/uL (0.7-4.9); Absolute Monocytes 0.6 K/uL (0.1-1.3); Absolute Neutrophil 6.3 K/uL (1.8-8.0); Basophils % 2.4 % (0-1.3); Eosinophils % 0.9 % (0-4.4); Hematocrit 36.4 % (39.6-49.0); Lymphocytes % 26.8 % (15.3-44.8); MPV 8.1 fL (7.6-11.3); Monocytes % 5.8 % (3.3-12.3); RBC Red Blood Cell Count 5.56 M/uL (4.33-5.43)
[2018-10-14 03:55] LABS: Protime INR 0.92
[2018-10-14] MEDS ORDERED: DIAZEPAM 5 MG TABLET ONE (03:58)
[2018-10-14] MEDS ORDERED: INSULIN -REGULAR HUMAN 50 UNIT/0.5 ML ML ONE (04:08)
[2018-10-14 04:14] LABS: ALT/SGPT 18 U/L (12-78); AST/SGOT 9 U/L (15-37); Albumin 3.2 g/dL (3.4-5.0); Alkaline Phosphatase 152 U/L (45-117); BUN Blood Urea Nitrogen 14 mg/dL (7-18); Bicarbonate 29 mmol/L (21-32); Bilirubin Direct < 0.1 mg/dL (0-0.2); Bilirubin Total 0.2 mg/dL (0.2-1.0); Glucose Level 377 mg/dL (74-106); Potassium 3.4 mmol/L (3.5-5.1); Protein, Total 7.3 g/dL (6.4-8.2); Sodium Level 135 mmol/L (136-145)
[2018-10-14] MEDS ORDERED: IBUPROFEN 400 MG TAB ONE (04:21)
[2018-10-14] MEDS ORDERED: IBUPROFEN 200 MG TAB PO ONE (04:22)
[2018-10-14 05:15] LABS: Blood Morphology Comment NOTED (NOT SEEN); Ovalocytes 1+; Platelet Estimate ADEQ
[2018-10-14 05:40] LABS: Urine Blood 1+ (NEG); Urine Glucose 2+ (NEG); Urine Protein 2+ (NEG)
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
--- NOTE | 2018-10-14 06:59 | EKG ---
Test Date: 2018-10-14 Test Time: 03:07:36 [employer] Machine Assembler: TONY MEASUREMENT RESULTS: Intervals: Rate: 111 SC: 142 QRSD: 82 QT: 326 QTc: 443 [place]: P: 51 SC: 142 QRS: 55 T: 54 INTERPRETIVE STATEMENTS: Sinus tachycardia Otherwise normal ECG Compared to ECG 07/21/2018 23:50:29 No significant changes Electronically Signed On 10-14-18 06:50:49 DRIFT MINER by Emory Olivarez
[2018-10-14 08:20] VITALS: TEMP 97.9
[2018-10-14 08:24] VITALS: BP 132/86; O2SAT 100
== END 2018-10-14 08:10 ==
LOC: ER 02:50
DX: R45.851 Suicidal ideations (principal); R41.82 Altered mental status, unspecified; Z88.1 Allergy status to other antibiotic agents; Z88.5 Allergy status to narcotic agent
CPT/HCPCS: 36415; 80048; 80076; 80307 ×8; 80320; 80329 ×2; 81003; 82962 ×3; 85025; 85610; 85730; 93005; 96360; 96372; 99284; J7030

== ENCOUNTER 2019-02-08 02:23 | Inpatient (IN) | payer OTHER ==
--- OUTSIDE RECORDS SUMMARY | 2019-02-08 02:27 | XMS REPORT | Clinical Summary ---
:1985 Author Organization [facility] Address [address] [place] [address] Care Team Providers Name Role Phone Asked, No Pcp Primary Care Provider Unavailable Allergies Active Allergy Reactions Severity Noted Date Comments Clindamycin GI Intolerance 11/12/2018 Headache, Nausea/Vomiting Meperidine GI Intolerance 11/12/2018 Headache, Nausea/Vomiting Morphine GI Intolerance 11/12/2018 Headache, Nausea/Vomiting Vancomycin GI Intolerance 11/12/2018 Headache, Nausea/Vomiting Medications Medication Sig Dispensed Refills Start Date End Date Status gabapentin Take 800 mg by 0 Active (NEURONTIN) 800 mg mouth 3 (three) tablet times a day. HYDROcodone-acetami Take 1 tablet 0 Active nophen (NORCO) by mouth every 10-325 mg per 6 (six) hours tablet as needed for moderate pain. lisinopril Take 20 mg by 0 Active (PRINIVIL,ZESTRIL) mouth daily. 20 mg tablet lurasidone (LATUDA) Take 120 mg by 0 Discontinued 120 mg tablet mouth nightly. 9 DULoxetine Take 60 mg by 0 Discontinued (CYMBALTA) 60 MG mouth daily. 9 capsule insulin NPH hum/reg Inject 50 Units 0 Discontinued insulin hm (NOVOLIN under the skin 9 70/30 U-100 INSULIN every morning. SUBQ) insulin NPH hum/reg Inject 30 Units 0 Discontinued insulin hm (NOVOLIN under the skin 9 70/30 U-100 INSULIN nightly. SUBQ) buPROPion XL Take 300 mg by 0 Discontinued (WELLBUTRIN XL) 300 mouth daily. 9 MG 24 hr tablet insulin 70/30 NPH Inject 55 Units 10 mL 12 11/17/2018 and regular human under the skin 9 (NovoLIN 70/30 every morning U-100 Insulin) 100 for 30 days. unit/mL (70-30) injection insulin 70/30 NPH Inject 35 Units 10 mL 12 11/16/2018 and regular human under the skin 9 (NovoLIN 70/30 daily before U-100 Insulin) 100 dinner for 30 unit/mL (70-30) days. injection DULoxetine Take 3 capsules 90 capsule 0 11/17/2018 (CYMBALTA) 30 MG (90 mg total) 9 capsule by mouth daily for 30 days. metroNIDAZOLE Take 1 tablet 30 tablet 0 11/18/2018 (FLAGYL) 500 MG (500 mg total) 9 tablet by mouth 3 (three) times a day for 10 days. ferrous sulfate Take 1 tablet 30 tablet 0 11/18/2018 (FERROUSUL) 325 (65 (325 mg total) 9 FE) MG tablet by mouth daily with breakfast for 30 days. Active Problems Problem Noted Date Hypotension 11/12/2018 Encounters Date Type Specialty Care Team Description 11/12/2018 - Hospital Encounter Neurosurgery Alejandro, Karina-Oli Hypotension, unspecified hypotension type (Primary Dx); 11/18/2018 MD Lewis Acute renal failure, unspecified acute renal failure type (HCC); Francisco, Hyperglycemia; MD Lyndon Metabolic acidosis; Noy Cassidy Anemia, unspecified type; MD Kole Chronic hypertension; Kody Steiner Controlled type 2 diabetes mellitus with other specified complication, with long-term current use of insulin (HCC); MD Bhavik Severe dehydration; Hypoalbuminemia 11/12/2018 Travel after 02/07/2018 Immunizations Name Dates Previously Given Next Due FLUCELVAX QUAD PF (0.5mL syringe) 11/13/2018 Social History Tobacco Use Types Packs/Day Years Used Date Current Every Day Smoker Cigarettes Smokeless Tobacco: Never Used Alcohol Use Drinks/Week oz/Week Comments No Alcohol Habits Answer Date Recorded How often do you have a drink containing alcohol? Never 11/12/2018 How many drinks containing alcohol do you have on a typical Not asked day when you are drinking? How often do you have six or more drinks on one occasion? Not asked Sex Assigned at Date Recorded Not on file Job Start Date Occupation Industry Not on file Not on file Not on file Travel History Travel Start Travel End No recent travel history available. Last Filed Vital Signs Vital Sign Reading Time Taken Blood Pressure 120/82 11/18/2018 4:19 PM MENTAL HYGIENIST Pulse 134 11/18/2018 4:19 PM MENTAL HYGIENIST Temperature 36 C (96.8 F) 11/18/2018 4:19 PM MENTAL HYGIENIST Respiratory Rate 20 11/18/2018 4:19 PM MENTAL HYGIENIST Oxygen Saturation 97% 11/18/2018 4:19 PM MENTAL HYGIENIST Inhaled Oxygen Concentration - - Weight 95.7 kg (211 lb) 11/13/2018 7:03 AM MENTAL HYGIENIST Height 175.3 cm (5' 9") 11/12/2018 7:56 PM MENTAL HYGIENIST Body Mass Index 31.16 11/12/2018 7:56 PM MENTAL HYGIENIST Plan of Treatment Health Maintenance Due Date Last Done Comments DIABETIC RETINAL EYE EXAM 1984 DIABETIC FOOT EXAM 1994 URINE MICROALBUMIN 1994 INFLUENZA VACCINE 04/15/2019 11/13/2018 Procedures Procedure Name Priority Date/Time Associated Comments Diagnosis POC GLUCOSE Routine 11/18/2018 4:35 Results for this PM MENTAL HYGIENIST procedure are in the results section. POC GLUCOSE Routine 11/18/2018 12:19 Results for this PM MENTAL HYGIENIST procedure are in the results section. POC GLUCOSE Routine 11/18/2018 8:30 Results for this AM MENTAL HYGIENIST procedure are in the results section. POC GLUCOSE Routine 11/17/2018 9:02 Results for this PM MENTAL HYGIENIST procedure are in the results section. POC GLUCOSE Routine 11/17/2018 5:54 Results for this PM MENTAL HYGIENIST procedure are in the results section. POC GLUCOSE Routine 11/17/2018 12:26 Results for this PM MENTAL HYGIENIST procedure are in the results section. POC GLUCOSE Routine 11/17/2018 7:45 Results for this AM MENTAL HYGIENIST procedure are in the results section. POC GLUCOSE Routine 11/17/2018 1:54 Results for this AM MENTAL HYGIENIST procedure are in the results section. POC GLUCOSE Routine 11/16/2018 8:55 Results for this PM MENTAL HYGIENIST procedure are in the results section. CLOSTRIDIUM DIFFICILE Routine 11/16/2018 8:00 Results for this TOXIN PM MENTAL HYGIENIST procedure are in the results section. POC GLUCOSE Routine 11/16/2018 5:32 Results for this PM MENTAL HYGIENIST procedure are in the results section. POC GLUCOSE Routine 11/16/2018 12:05 Results for this PM MENTAL HYGIENIST procedure are in the results section. POC GLUCOSE Routine 11/16/2018 8:32 Results for this AM MENTAL HYGIENIST procedure are in the results section. POC GLUCOSE Routine 11/15/2018 9:02 Results for this PM MENTAL HYGIENIST procedure are in the results section. POC GLUCOSE Routine 11/15/2018 4:44 Results for this PM MENTAL HYGIENIST procedure are in the results section. POC GLUCOSE Routine 11/15/2018 12:07 Results for this PM MENTAL HYGIENIST procedure are in the results section. HEMOGLOBIN A1C Routine 11/15/2018 10:03 Results for this AM MENTAL HYGIENIST procedure are in the results section. POC GLUCOSE Routine 11/15/2018 10:01 Results for this AM MENTAL HYGIENIST procedure are in the results section. POC GLUCOSE Routine 11/15/2018 7:58 Results for this AM MENTAL HYGIENIST procedure are in the results section. ESTIMATED GFR Routine 11/15/2018 5:10 Results for this AM MENTAL HYGIENIST procedure are in the results section. BASIC METABOLIC PANEL Routine 11/15/2018 5:10 Results for this AM MENTAL HYGIENIST procedure are in the results section. HC COMPLETE BLD COUNT Routine 11/15/2018 5:10 Results for this W/AUTO DIFF AM MENTAL HYGIENIST procedure are in the results section. POC GLUCOSE Routine 11/15/2018 12:29 Results for this AM MENTAL HYGIENIST procedure are in the results section. POC GLUCOSE Routine 11/14/2018 9:38 Results for this PM MENTAL HYGIENIST procedure are in the results section. POC GLUCOSE Routine 11/14/2018 6:32 Results for this PM MENTAL HYGIENIST procedure are in the results section. POC GLUCOSE Routine 11/14/2018 3:53 Results for this PM MENTAL HYGIENIST procedure are in the results section. POC GLUCOSE Routine 11/14/2018 11:57 Results for this AM MENTAL HYGIENIST procedure are in the results section. POC GLUCOSE Routine 11/14/2018 7:14 Results for this AM MENTAL HYGIENIST procedure are in the results section. POC GLUCOSE Routine 11/14/2018 6:35 Results for this AM MENTAL HYGIENIST procedure are in the results section. HC COMPLETE BLD COUNT Routine 11/14/2018 4:45 Results for this W/AUTO DIFF AM MENTAL HYGIENIST procedure are in the results section. ESTIMATED GFR Routine 11/14/2018 4:00 Results for this AM MENTAL HYGIENIST procedure are in the results section. BASIC METABOLIC PANEL Routine 11/14/2018 4:00 Results for this AM MENTAL HYGIENIST procedure are in the results section. POC GLUCOSE Routine 11/14/2018 3:05 Results for this AM MENTAL HYGIENIST procedure are in the results section. POC GLUCOSE Routine 11/13/2018 8:54 Results for this PM MENTAL HYGIENIST procedure are in the results section. POC GLUCOSE Routine 11/13/2018 5:31 Results for this PM MENTAL HYGIENIST procedure are in the results section. POC GLUCOSE Routine 11/13/2018 12:13 Results for this PM MENTAL HYGIENIST procedure are in the results section. ECHOCARDIOGRAM 2D Routine 11/13/2018 11:12 Results for this COMPLETE W MMODE AM MENTAL HYGIENIST procedure are in SPECTRAL COLOR DOPPLER the results (18437) section. POC GLUCOSE Routine 11/13/2018 7:17 Results for this AM MENTAL HYGIENIST procedure are in the results section. ESTIMATED GFR Routine 11/13/2018 6:06 Results for this AM MENTAL HYGIENIST procedure are in the results section. BASIC METABOLIC PANEL Routine 11/13/2018 6:06 Results for this AM MENTAL HYGIENIST procedure are in the results section. HC COMPLETE BLD COUNT Routine 11/13/2018 6:06 Results for this W/AUTO DIFF AM MENTAL HYGIENIST procedure are in the results section. POC GLUCOSE Routine 11/12/2018 10:19 Results for this PM MENTAL HYGIENIST procedure are in the results section. POC GLUCOSE Routine 11/12/2018 6:40 Results for this PM MENTAL HYGIENIST procedure are in the results section. VITAMIN B12 LEVEL Routine 11/12/2018 12:40 Results for this PM MENTAL HYGIENIST procedure are in the results section. TOTAL IRON BINDING Routine 11/12/2018 12:40 Results for this CAPACITY PM MENTAL HYGIENIST procedure are in the results section. FOLATE LEVEL Routine 11/12/2018 12:40 Results for this PM MENTAL HYGIENIST procedure are in the results section. FERRITIN LEVEL Routine 11/12/2018 12:40 Results for this PM MENTAL HYGIENIST procedure are in the results section. BLOOD CULTURE, AEROBIC Routine 11/12/2018 7:40 Results for this & ANAEROBIC AM MENTAL HYGIENIST procedure are in the results section. CREATINE KINASE, TOTAL Timed 11/12/2018 7:38 Results for this (CPK) AM MENTAL HYGIENIST procedure are in the results section. RESPIRATORY PATHOGEN Routine 11/12/2018 7:38 Results for this PANEL AM MENTAL HYGIENIST procedure are in the results section. BLOOD CULTURE, AEROBIC Routine 11/12/2018 7:38 Results for this & ANAEROBIC AM MENTAL HYGIENIST procedure are in the results section. ECG 12-LEAD STAT 11/12/2018 7:37 AM MENTAL HYGIENIST Procedure Note - Kody Steiner MD - 11/12/2018 4:14 AM MENTAL HYGIENIST Emergency Department Provider Note Location: [facility] MAIN ED Patient ID: Raymundo Mcdowell is a 33 y.o. male. Chief Complaint Chief Complaint Patient presents with Hypotension History of Present Illness 33 y/o male with PMHx of DM, HTN, neuropathy, and chronic pain presents to the ED with hypotension. Pt's caregiver states pt is in a care facility for SI. Pt states he took his blood pressure medication today. History provided by: Patient interpreter translator used: No Illness Severity: Severe Onset quality: Sudden Duration: LEARNING AND DEVELOPMENT ADMINISTRATOR. Timing: Constant Progression: Worsening Chronicity: New Context: Pt has hypotension. Relieved by: Nothing. Worsened by: Nothing. Ineffective treatments: None tried. Associated symptoms: no abdominal pain, no chest pain, no cough, no diarrhea , no fever, no headaches, no nausea, no rash, no rhinorrhea, no shortness of breath, no vomiting and no wheezing in chest rad to whole body History Allergies Allergies Allergen Reactions Clindamycin Demerol [Meperidine] Morphine Vancomycin Past Medical History DM HTN Neuropathy Chronic pain Past Surgical History Dental Past Family History Reviewed; pr Past Social History No drugs tob etoh; lives locally Medications ED Medications Not on File Review of Systems Review of Systems Constitutional: Negative for chills and fever. Negative for any other complaint HENT: Negative for rhinorrhea. Eyes: Negative for pain and visual disturbance. Respiratory: Negative for cough, shortness of breath and wheezing. Cardiovascular: Negative for chest pain, palpitations and leg swelling. Gastrointestinal: Negative for abdominal pain, blood in stool, diarrhea, nausea, vomiting and trouble swallowing. No black stool Genitourinary: Negative for dysuria and hematuria. Musculoskeletal: Negative for back pain, gait problem and neck pain. No loss of rom Skin: Negative for rash. No trauma incl no lacs, abrasions, contusions Allergic/Immunologic: Negative for food allergies. Hematological: Negative for adenopathy. Does not bruise/bleed easily. Neurological: Negative for tremors, seizures, syncope, speech difficulty, weakness, numbness and headaches. No lack of bladder or bowel control Psychiatric/Behavioral: Negative for confusion and dysphoric mood. All other systems reviewed and are negative. Physical Exam ED Triage Vitals [11/12/18 0352] Temp Heart Rate Respiratory Rate BP SpO2 (!) 97.4 F 75 14 88/53 99 % Temp src Heart Rate Source Patient Position BP Location FiO2 % -- -- -- -- -- Physical Exam Constitutional: He is oriented to person, place, and time. He appears well- developed and well-nourished. No distress. Obese. HENT: Head: Normocephalic and atraumatic. Right Ear: External ear normal. Left Ear: External ear normal. Nares patent, no nasal discharge, no septal abnormalities. Mm dry Eyes: Conjunctivae are normal. Right eye exhibits no discharge. Left eye exhibits no discharge. Right conjunctiva is not injected. Left conjunctiva is not injected. No scleral icterus. No raccoon eyes. No lesions nor megaly of palpebrae (superior or inferior) Neck: No JVD present. No tracheal deviation present. No thyromegaly present. No tracheal deviation Cardiovascular: Normal rate and regular rhythm. Exam reveals no gallop and no friction rub. No murmur heard. Slow cap refill; hypotensive Pulmonary/Chest: No respiratory distress. He has no wheezes. He has no rales. He exhibits no tenderness. Voice clear. No stridor, rhonchi. Abdominal: Soft. Bowel sounds are normal. He exhibits no distension. There is no tenderness. There is no rebound and no guarding. No tympanny Musculoskeletal: He exhibits no edema or tenderness. Right AKA. Neurological: He is alert and oriented to person, place, and time. No cranial nerve deficit. He exhibits normal muscle tone. Moving all extremities Skin: Skin is warm and dry. No rash noted. No pallor, lacerations, abrasions, contusions, rash, erythema, calor, dolor, crepitus, fluctuance, splinter hemorrhages, osler node, nor janeway spot. Psychiatric: His behavior is normal. Judgment and thought content normal. Nursing note and vitals reviewed. ED Course ED Course as of Nov 12 735 [facility] Nov 12, [address] Singh, accepts pt for observation. [HG] ED Course User Index [HG] Martha Sigala Clinical Impressions as of Nov 12 735 Hypotension, unspecified hypotension type - acute, onset at home, inital encounter Acute renal failure, unspecified acute renal failure type (HCC) - acute, onset at home, inital encounter Hyperglycemia - acute, onset at home, inital encounter Metabolic acidosis - acute, onset at home, inital encounter Anemia, unspecified type - acute, onset at home, inital encounter Chronic hypertension Controlled type 2 diabetes mellitus with other specified complication, with long-term current use of insulin (HCC) Severe dehydration - acute, onset at home, inital encounter Hypoalbuminemia - acute, onset at home, inital encounter MDM MDM Number of Diagnoses or Management Options Dehydration: new and requires workup Hypotension, unspecified hypotension type: new and requires workup Amount and/or Complexity of Data Reviewed Clinical lab tests: ordered and reviewed Tests in the radiology section of CPT: ordered and reviewed Tests in the medicine section of CPT: ordered and reviewed Decide to obtain previous medical records or to obtain history from someone other than the patient: yes Obtain history from someone other than the patient: yes Review and summarize past medical records: yes Discuss the patient with other providers: yes Independent visualization of images, tracings, or specimens: yes Risk of Complications, Morbidity, and/or Mortality Presenting problems: high Diagnostic procedures: high Management options: high Patient Progress Patient progress: stable Labs Radiology Procedures Critical Care Performed by: Diamond Allen MD Authorized by: Diamond Allen MD Critical care provider statement: Critical care time (minutes): 35 Critical care time was exclusive of: Separately billable procedures and treating other patients Critical care was necessary to treat or prevent imminent or life- threatening deterioration of the following conditions: Hypotensive crisis. Critical care was time spent personally by me on the following activities: Blood draw for specimens, development of treatment plan with patient or surrogate, discussions with consultants, evaluation of patient's response to treatment, examination of patient, interpretation of cardiac output measurements, obtaining history from patient or surrogate, ordering and performing treatments and interventions, ordering and review of laboratory studies, ordering and review of radiographic studies, pulse oximetry, re-evaluation of patient's condition and review of old charts ECG 12 lead Date/Time: 11/12/2018 5:37 AM Performed by: Diamond Allen MD Authorized by: Diamond Allen MD ECG reviewed by ED Physician in the absence of a extrusion manager: yes Previous ECG: Previous ECG: Compared to current Comparison ECG info: No acute changes. Similarity: No change Interpretation: Interpretation: abnormal Rate: ECG rate: 72 ECG rate assessment: normal Rhythm: Rhythm: sinus rhythm Ectopy: Ectopy: none QRS: QRS axis: Normal QRS intervals: Normal Conduction: Conduction: normal ST segments: ST segments: Normal T waves: T waves: normal Q waves: Q waves: III and aVF Differential Diagnoses This patient has a differential diagnosis of sepsis, urosepsis, pneumonia, dehydration, fever of unknown origin. Final Diagnoses Final diagnoses: Hypotension, unspecified hypotension type Acute renal failure, unspecified acute renal failure type (HCC) Hyperglycemia Metabolic acidosis Anemia, unspecified type Chronic hypertension Controlled type 2 diabetes mellitus with other specified complication, with long-term current use of insulin (HCC) Severe dehydration Hypoalbuminemia Disposition This patient has a disposition of Admit. Will admit for further evaluation, case discussed with doctor c application developer and pt accepted for admission. Labs ordered, reviewed, and interpreted by me. Pulse ox reviewed by me and interpreted as normal. car checker reviewed by me and interpreted as normal. ED Attestations Scribe Attestation: This document is recorded by Martha Sigala acting as a scribe under the direction and presence of Diamond Allen MD. Martha Sigala 11/12/18 0538 Provider attestation of scribe: PEDRITO OCONNOR: I personally performed the services recorded by the scribe in my presence. I confirm the scribe's documentation has been reviewed by me to accurately record my work, treatment, procedures, and medical decision making. INTERPRETATIONS OF LABS AND IMAGING Leukocytosis, anemia, arf, hyperglycemia, hypoalbuminemia Labs Reviewed CBC WITH PLATELET AND DIFFERENTIAL - Abnormal; Notable for the following components: Result Value WBC 11.59 (*) HGB 9.7 (*) HCT 33.8 (*) MCV 70.3 (*) MCH 20.2 (*) MCHC 28.7 (*) All other components within normal limits COMPREHENSIVE METABOLIC PANEL - Abnormal; Notable for the following components: BUN 23 (*) Creatinine 1.40 (*) Glucose 212 (*) Protein 5.9 (*) Albumin 2.7 (*) All other components within normal limits URINALYSIS SCREEN AND MICROSCOPY, WITH REFLEX TO CULTURE - Abnormal; Notable for the following components: Protein, UA 1+ (*) Glucose, UA 3+ (*) All other components within normal limits URINE CULTURE BLOOD CULTURE, AEROBIC & ANAEROBIC BLOOD CULTURE, AEROBIC & ANAEROBIC RESPIRATORY PATHOGEN PANEL LIPASE LEVEL LACTIC ACID LEVEL ESTIMATED GFR TROPONIN B NATRIURETIC PEPTIDE URINALYSIS SCREEN AND MICROSCOPY, WITH REFLEX TO CULTURE TROPONIN B NATRIURETIC PEPTIDE CREATINE KINASE, TOTAL (CPK) CT Abdomen Pelvis Wo Contrast Final Result XR Chest 1 Vw Port[address] Final Result CT abd pelvis: distended bladder; likely neurogenic; no sbo nor lbo; abnl CXR: no effusion, opacity, infiltrate; neg acute MEDICATIONS GIVEN Medications sodium chloride 0.9% flush 10 mL (not administered) sodium chloride 0.9% flush 10 mL (not administered) sodium chloride 0.9 % bolus 1,000 mL (1,000 mL intravenous New Bag 11/12/18 8699) docusate sodium (COLACE) capsule 100 mg (not administered) polyethylene glycol (MIRALAX) packet 17 g (not administered) sodium chloride 0.9 % bolus 1,000 mL (not administered) acetaminophen (TYLENOL) tablet 650 mg (not administered) sodium chloride 0.9 % bolus 1,000 mL (0 mL intravenous Stopped 11/12/18 0500) ED MD RECHECKS Billers: See above for interventions given to patient in ED for: Final diagnoses: Hypotension, unspecified hypotension type Acute renal failure, unspecified acute renal failure type (HCC) Hyperglycemia Metabolic acidosis Anemia, unspecified type Chronic hypertension Controlled type 2 diabetes mellitus with other specified complication, with long-term current use of insulin (HCC) Severe dehydration Hypoalbuminemia Pt S/O From Dr. Allen PROGRESS NOTE: 7:36 AM 11/12/2018 S: No complaints O: Hypotensive; slow cap refill; nl heart rate which in this context is abnl A: Hypotension; evidence of dehydration; only 1 L IV NS thus far P: Add 2 liters IV NS Broaden workup: cx, rpp, ck CONSULT Singh with update to confer on plan Critical Care Performed by: KODY STEINER Authorized by: Kody STEINER Critical care provider statement: Critical care time (minutes): 37 Critical care was necessary to treat or prevent imminent or life- threatening deterioration of the following conditions: hypotension; severe dehydration Critical care was time spent personally by me on the following activities: Ordering and performing treatments and interventions, ordering and review of laboratory studies, ordering and review of radiographic studies, pulse oximetry, re-evaluation of patient's condition, review of old charts, obtaining history from patient or surrogate, development of treatment plan with patient or surrogate, discussions with consultants, evaluation of patient's response to treatment, examination of patient and discussions with primary provider Taking over critical care for this patient from another provider ED VISIT SUMMARY Plan: Any labs, imaging, & meds listed above w/ ED physician reassessment. If no labs, imaging, or meds are listed then none were given. RN notes & vital signs reviewed. At least 2 sets of vitals were taken & reviewed if the patient was admitted. I reviewed the pt's PMH, PSH, FH, SH, Meds and Allergy history. History obtained from patient and patient s components engineer. Prior records sought & summarized confirming history of: No past medical history on file. At least 1 MD bedside reassessment occurred to update patient, determine response to treatment & recheck the patent s wellbeing. INTERPRETATIONS (additional)/Amount and/or Complexity of Data Reviewed: I reviewed the Pulse Oximetry and it is wnl by my independent interpretation. I reviewed the assistant professor of dietetics on the patient (nl rate; q wave; no stemi; abnl) All labs returned while pt in ED were wnl by my independent interpretation unless otherwise noted. All lab, imaging, ECG, other tracing, or specimen results interpretations are by my independent review & interpretation in the medicine & radiology section of CPT. DIAGNOSES Final diagnoses: Hypotension, unspecified hypotension type Acute renal failure, unspecified acute renal failure type (HCC) Hyperglycemia Metabolic acidosis Anemia, unspecified type Chronic hypertension Controlled type 2 diabetes mellitus with other specified complication, with long-term current use of insulin (HCC) Severe dehydration Hypoalbuminemia All diagnoses are modified as: Acute, onset at home, initial encounter unless noted. All diagnoses are New and require Additional Workup (unless otherwise noted). DISCUSSIONS WITH CONSULTANTS AND PATIENT/PATIENT PROXY All consultants listed agreed with ED A&P, unless otherwise noted. All pt's questions & concerns addressed & answered.Pt told, understands & agrees with assessment and plan including dispo.DDX incl causes considered but not specified given they were low prob or unlikely to cause immediate or disability.PARKER for unlisted unlikely or benign causes would likely yielded harm>benefit. BLOOD PRESSURE COUNSELING: I recommended the patient have their BP screened at follow up with their PCP in >1 day and < 4 weeks, that the pt or pt's proxy discuss the pt's BP with their PCP at that visit, and recommended lifestyle intervention including increased physical activity. Advanced care plan including surrogate discussed with patient and entered into medical record. I have documented a list of current medications using all immediate resources available on the date of the encounter and that list is here: Current Facility-Administered Medications: acetaminophen (TYLENOL) tablet 650 mg, 650 mg, oral, Q6H PRN, Lyndon Singh MD docusate sodium (COLACE) capsule 100 mg, 100 mg, oral, BID PRN, Lyndon Singh MD polyethylene glycol (MIRALAX) packet 17 g, 17 g, oral, Daily PRN, Lyndon Singh MD sodium chloride 0.9 % bolus 1,000 mL, 1,000 mL, intravenous, Once, Kody Steiner MD, 1,000 mL at 11/12/18 0656 sodium chloride 0.9 % bolus 1,000 mL, 1,000 mL, intravenous, Once, Lyndon Singh MD sodium chloride 0.9% flush 10 mL, 10 mL, intravenous, Q12H [facility], Diamond Allen MD sodium chloride 0.9% flush 10 mL, 10 mL, intravenous, PRN, Diamond Allen MD No current outpatient medications on file. Disposition: Admission Condition: Serious Patient Progress: Unchanged Risk of complications, morbidity, or mortality is: Presenting problems: high Diagnostic procedures: high Management options: high Kody Steiner MD 11/12/[address] ABDOMEN PELVIS WO STAT 11/12/2018 5:10 AM MENTAL HYGIENIST Results for this CONTRAST procedure are in the results section. URINALYSIS SCREEN AND Routine 11/12/2018 5:00 AM MENTAL HYGIENIST Results for this MICROSCOPY, WITH REFLEX TO procedure are in the CULTURE results section. URINE CULTURE Routine 11/12/2018 5:00 AM MENTAL HYGIENIST XR CHEST 1 VW PORTABLE STAT 11/12/2018 4:59 AM MENTAL HYGIENIST B NATRIURETIC PEPTIDE STAT 11/12/2018 4:15 AM MENTAL HYGIENIST TROPONIN STAT 11/12/2018 4:15 AM MENTAL HYGIENIST ESTIMATED GFR STAT 11/12/2018 4:15 AM MENTAL HYGIENIST LACTIC ACID LEVEL STAT 11/12/2018 4:15 AM MENTAL HYGIENIST LIPASE LEVEL STAT 11/12/2018 4:15 AM MENTAL HYGIENIST COMPREHENSIVE METABOLIC STAT 11/12/2018 4:15 AM MENTAL HYGIENIST Results for this PANEL procedure are in the results section. HC COMPLETE BLD COUNT W/AUTO STAT 11/12/2018 4:15 AM MENTAL HYGIENIST Results for this DIFF procedure are in the results section. MD CRITICAL CARE, E/M 30-74 Routine 11/12/2018 4:14 AM MENTAL HYGIENIST Results for this MINUTES procedure are in the results section. ECG 12-LEAD STAT 11/12/2018 4:02 AM MENTAL HYGIENIST after 02/07/2018 Results POC glucose (11/18/2018 4:35 PM MENTAL HYGIENIST)Only the most recent of31 resultswithin the time period is included. POC glucose 252 (H) 65 - 99 mg/dL [facility] Comment: [facility] Notified RN Meter ID: [id number] Airplane Pilot Commercial: Nikita Anderson Specimen Performing Organization Address City/[facility] Phone Number [facility] DEPARTMENT OF PATHOLOGY AND [address] [place] [address] C difficile toxin (11/16/2018 8:00 PM MENTAL HYGIENIST) Pathologist [facility] Clostridium Positive for C. difficile toxin (A) [facility] difficile toxin Comment: HOSPITAL Specimen Information Specimen Source: Stool Specimen Site: Nonpreserved Specimen Stool - Nonpreserved Performing Organization Address City/[facility] Phone Number [facility] DEPARTMENT OF PATHOLOGY AND [address] [place] [address] Hemoglobin A1c (11/15/2018 10:03 AM MENTAL HYGIENIST) Pathologist [facility] Hemoglobin A1C 13.6 (H) 4.0 - 5.6 % [facility] Comment: [facility]OS[facility]ITAL HbA1c cutoffs for diagnosing diabetes: 4.0% - 5.6%=normal 5.7% - 6.4%=increased risk for diabetes (prediabetes) >=6.5%=diabetes Goals for glycemic control (ADA 2016) < 7.0%Target for non adults with diabetes. More or less stringent targets may be appropriate for individual patients. <7.5% Target for Children and adolescents with type 1 diabetes. Specimen Blood Performing Organization Address City/State/Zipcode Phone Number [facility] DEPARTMENT OF PATHOLOGY AND [address] [place] [phone] [place] [phone] Estimated GFR (11/15/2018 5:10 AM MENTAL HYGIENIST)Only the most recent of4 resultswithin the time period is included. Pathologist [facility] Estimated GFR >=90 mL/min/1.73 [facility] Comment: m2 HOSPITAL CatergoryUnitsInterpretation G1 >=90 Normal or high G2 60-89Mildly decreased [id number] to moderately decreased [id number] to severely decreased G4 15-29Severely decreased G5 <15Kidney failure The eGFR was calculated using the Chronic Kidney Disease Epidemiology Collaboration (CKD-EPI) equation. Interpretation is based on recommendations of the National Kidney Foundation-Kidney Disease Outcomes Quality Initiative (NKF-KDOQI) published in 2014. Specimen Plasma specimen Performing Organization Address City/State/Zipcode Phone Number [facility] DEPARTMENT OF PATHOLOGY AND [address] [place] [phone] [place] [phone] CBC with platelet and differential (11/15/2018 5:10 AM MENTAL HYGIENIST)Only the most recent of4 resultswithin the time period is included. [facility] WBC 9.57 4.50 - 11.00 [facility] k/uL [facility] RBC 5.25 4.40 - 6.00 [facility] m/uL [facility] HGB 10.7 (L) 14.0 - 18.0 [facility] g/dL [facility] HCT 36.7 (L) 41.0 - 51.0 % [facility] MCV 69.9 (L) 82.0 - 100.0 [facility] MCH 20.4 (L) 27.0 - 34.0 pg [facility] MCHC 29.2 (L) 31.0 - 37.0 [facility] RDW - SD 44.4 37.0 - 55.0 fL [facility] MPV 9.7 8.8 - 13.2 fL [facility] Platelet count 330 150 - 400 k/uL [facility] Nucleated RBC 0.00 /100 WBC [facility] Neutrophils 57.7 39.0 - 69.0 % [facility] Lymphocytes 31.0 25.0 - 45.0 % [facility] Monocytes 8.0 0.0 - 10.0 % [facility] Eosinophils 2.0 0.0 - 5.0 % [facility] Basophils 0.8 0.0 - 1.0 % [facility] Immature granulocytes 0.5Comment: 0.0 - 1.0 % [facility] "[facility] granulocytes" (promyelocytes , myelocytes, metamyelocytes ) Specimen Blood Performing Organization Address City/[facility] Phone Number [facility] DEPARTMENT OF PATHOLOGY AND [address] [place] [address] Basic metabolic panel (11/15/2018 5:10 AM MENTAL HYGIENIST)Only the most recent of3 resultswithin the time period is included. Sodium 134 (L) 135 - 148 mEq/L [facility] Potassium 3.9 3.5 - 5.0 mEq/L [facility] Chloride 102 98 - 112 mEq/L [facility] CO2 20 (L) 24 - 31 mEq/L [facility] Anion gap 12@ANIO 7 - 15 mEq/L [facility] BUN 11 6 - 20 mg/dL [facility] Creatinine 0.96 0.70 - 1.20 mg/dL [facility] Glucose 364 (H) 65 - 99 mg/dL [facility] Calcium 8.8 8.3 - 10.2 mg/dL [facility] Specimen Plasma specimen Performing Organization Address City/[facility] Phone Number [facility] DEPARTMENT OF PATHOLOGY AND [address] [place] [address] Echocardiogram complete w contrast and 3D if needed (11/13/2018 11:12 AM MENTAL HYGIENIST) Specimen Narrative Performed At [facility] Echocardiography Report [address] [place] [address] Pat.Name:RAYMUNDO MCDOWELL Airam.ID:[id number] .Date: 11/13/2018Refharish.MD:NOY CASSIDY MD Exam Time: 10:33:00 AM Study Type:Routine Echo Height:69inWeight: 211lb BSA: 2.12 m2 DOBAge:1985,33Y Sex: MALEBP:122/80 Sonogrphr: Aide Pal RDCS, RVSPat. Stat.:Inpatient Room:[facility] Study Status:Final Echo Event ID:[id number] Order ID:[id number] Reason for Study:Syncope without cardiac evidence Procedures:2D Echo, Colorflow Doppler SUMMARY: Normal biventricular chamber size and systolic function No hemodynamically significant valvular pathology. FINDINGS: LV: LV size is normal. LV EF is normal. Overall wall motion is normal.Estimated EF is 65-69% Normal GLS at -17% RV: RV size is normal. RV systolic function is normal. LA: LA size is normal. RA: RA size is normal. AO: Aortic root diameter is normal. TERESA: Trace posterolateral pericardial effusion. AV: No structural AV abnormalities noted. MV: No structural MV abnormalities noted. PV: No structural PV abnormalities noted. TV: No structural TV abnormalities noted. Alfonso: LV relaxation is impaired. LV filling pressure is normal. Other:Insufficient TR jet to estimate PA systolic pressure. MEASUREMENTS: 2D Parasternal [place] LA Ds4 cmLVPWd1.1 cm LVOT 2.3 cmAo An2.3 cm LVIDd4.9 cmIndex2.3 cm/m Ao Rtd 3.6 cm Index1.7 cm/m LVIDs3.1 cm LV Sdxk678.6 g(122-174) LV%fs 36.3 % LVM Index 89 g/m2 IVSd 1 cmRWT0.4 LA Sng Plane LA Area 20.7 cm2(8.8-23.4) LA Vol60.5 ml Index28.5 ml/m LA LngAx 5.7 cm RA Sng Plane RA Area 13.2 cm2(8.3-19.5) RA Vol30.2 ml Index14.2 ml/m RA LngAx 5.4 cm DOPPLER LVOT Stroke Vol LVOT 2.3 cmLVOT CO7.7 l/min LVOT TVI19.2 cmLVOT CI3.6 l/m/m2 LVOT Tm283 xgzvZY12 bpm LVOT SV 79.7 ml Signed 11/13/2018 12:07 PM Tone Orellana MD Procedure Note Interface, Radiology Results In - 11/13/2018 12:07 PM MENTAL HYGIENIST Echocardiography Report [address]Name: RAYMUNDO MCDOWELL Pat.ID: [id number] .Date: 11/13/2018 Refer.MD: NOY CASSIDY MD Exam Time: 10:33:00 AM Study Type:Routine Echo Height: 69in Weight: 211lb BSA: 2.12 m2 Age: 6 1985,33Y Sex: MALE BP: 122/80 Sonogrphr: Aide Pal RDCS, RVSPat. Stat.:Inpatient Room: [facility] Study Status:Final Echo Event ID:[id number] Order ID: [id number] Reason for Study:Syncope without cardiac evidence Procedures:2D Echo, Colorflow Doppler SUMMARY: Normal biventricular chamber size and systolic function No hemodynamically significant valvular pathology. FINDINGS: LV: LV size is normal. LV EF is normal. Overall wall motion is normal. Estimated EF is 65-69% Normal GLS at -17% RV: RV size is normal. RV systolic function is normal. LA: LA size is normal. RA: RA size is normal. AO: Aortic root diameter is normal. TERESA: Trace posterolateral pericardial effusion. AV: No structural AV abnormalities noted. MV: No structural MV abnormalities noted. PV: No structural PV abnormalities noted. TV: No structural TV abnormalities noted. Alfonso: LV relaxation is impaired. LV filling pressure is normal. Other: Insufficient TR jet to estimate PA systolic pressure. MEASUREMENTS: 2D Parasternal [place] LA Ds 4 cm LVPWd 1.1 cm LVOT 2.3 cm Ao An 2.3 cm LVIDd 4.9 cm Index 2.3 cm/m Ao Rtd 3.6 cm Index 1.7 cm/m LVIDs 3.1 cm LV Mass 188.6 g (122-174) LV%fs 36.3 % LVM Index 89 g/m2 IVSd 1 cm RWT 0.4 LA Sng Plane LA Area 20.7 cm2 (8.8-23.4) LA Vol 60.5 ml Index 28.5 ml/m LA LngAx 5.7 cm RA Sng Plane RA Area 13.2 cm2 (8.3-19.5) RA Vol 30.2 ml Index 14.2 ml/m RA LngAx 5.4 cm DOPPLER LVOT Stroke Vol LVOT 2.3 cm LVOT CO 7.7 l/min LVOT TVI 19.2 cm LVOT CI 3.6 l/m/m2 LVOT Tm 283 msec HR 97 bpm LVOT SV 79.7 ml Signed 11/13/2018 12:07 PM Tone Orellana MD Performing Organization Address City/[facility]/Zipcode Phone Number [facility] [address] [place] [address] Total iron binding capacity (11/12/2018 12:40 PM MENTAL HYGIENIST) Iron level 24 (L) 59 - 158 ug/dL [facility] Iron binding capacity 322 200 - 400 ug/dL [facility] % Saturation 7.5 (L) 20.0 - 40.0 % [facility] Specimen Plasma specimen Performing Organization Address [facility] Phone Number [facility] DEPARTMENT OF PATHOLOGY AND [address] [place] [phone] [place] [phone] Folate level (11/12/2018 12:40 PM MENTAL HYGIENIST) Folate 14.9 4.8 - 24.2 ng/mL [facility] Specimen Serum Performing Organization Address [facility] Phone Number [facility] DEPARTMENT OF PATHOLOGY AND [address] [place] [phone] [place] [phone] Ferritin level (11/12/2018 12:40 PM MENTAL HYGIENIST) Ferritin level <13 (A) 30 - 400 ng/mL [facility] Specimen Plasma specimen Performing Organization Address [facility] Phone Number [facility] DEPARTMENT OF PATHOLOGY AND [address] [place] [phone] Vitamin B12 level (11/12/2018 12:40 PM MENTAL HYGIENIST) Vitamin B12 307 211 - 946 [facility] Comment: pg/mL HOSPITAL Significant overlap exists between normal and deficiency states. However, most patients with deficiencies will have Serum B12 <200 pg/mL. Specimen Serum Performing Organization Address [facility] Phone Number [facility] DEPARTMENT OF PATHOLOGY AND [address] [place] [phone] [place] [phone] Blood culture, aerobic & anaerobic (11/12/2018 7:40 AM MENTAL HYGIENIST)Only the most recent of2 resultswithin the time period is included. Pathologist [facility] Blood culture No growth after 5 days of incubation. [facility] isolate Comment: HOSPITAL Specimen Information Specimen Source: Blood Specimen Site: Arm, right Specimen Blood - Arm, right Performing Organization Address [facility] Phone Number [facility] DEPARTMENT OF PATHOLOGY AND [address] [place] [phone] [place] [phone] Respiratory pathogen panel (11/12/2018 7:38 AM MENTAL HYGIENIST) [facility] Respiratory Negative for all pathogens tested: UMPQUA pathogen panel Negative for Adenovirus HINDUISM Negative for Coronavirus HKU1 [facility] Negative for Coronavirus NL63 Negative for Coronavirus 229E Negative for Coronavirus OC43 Negative for Human Metapneumovirus Negative for Rhinovirus/Enterovirus Negative for Influenza A Negative for Influenza A/H1 Negative for Influenza A/H3 Negative for Influenza A/H1-2009 Negative for Influenza B Negative for Parainfluenza Virus 1 Negative for Parainfluenza Virus 2 Negative for Parainfluenza Virus 3 Negative for Parainfluenza Virus 4 Negative for Respiratory Syncytial Virus Negative for Bordetella pertussis Negative for Chlamydophila pneumoniae Negative for Mycoplasma pneumoniae This real-time PCR assay detects the presence of nucleic acids (RNA or DNA) for the respiratory pathogens listed. A result of "Not-detected" does not exclude the possibility of the presence of one or more pathogens at concentrations less than the detectable limits of the assay. Comment: Specimen Information Specimen Source: Nares Specimen Site: Left Specimen Nares - Left Performing Organization Address [facility] Phone Number [facility] DEPARTMENT OF PATHOLOGY AND [address] [place] [address] Creatine kinase, total (CPK) (11/12/2018 7:38 AM MENTAL HYGIENIST) [facility] Creatine kinase 27 (L) 39 - 308 U/L [facility] Specimen Plasma specimen Performing Organization Address [facility] Phone Number [facility] DEPARTMENT OF PATHOLOGY AND [address] [place] [address] Abdomen Pelvis Wo Contrast (11/12/2018 5:10 AM MENTAL HYGIENIST) Specimen Narrative Performed At EXAMINATION:CT ABDOMEN PELVIS WO CONTRAST [facility] CLINICAL HISTORY:abd pain TECHNIQUE: Multiple axial images of the abdomen and pelvis were obtained without intravenous administration of iodinated contrast. Sagittal and coronal computerized reformatted images were also obtained. The lack of intravenous contrast reduces the sensitivity of detecting solid organ disease. CT imaging was performed with iterative reconstruction technique and/or automated exposure control to reduce radiation dose. COMPARISON:None. IMPRESSION: Slight eventration of right hemidiaphragm. Some atelectasis is seen of the lung bases. Liver, gallbladder, spleen, pancreas, adrenal glands are normal. Kidneys, ureters are normal. Marked distention of the bladder is seen. No free intraperitoneal fluid or air. A few diverticula are seen without diverticulitis. The appendix is normal. No gastrointestinal tract obstruction. No acute osseous abnormalities. There is a 1.6 x 1.5 cm sebaceous cyst of the right gluteal region. Summary: Marked distention of the bladder is seen. Consider neurogenic bladder or outlet obstruction. Otherwise unremarkable exam. [facility]-[id number] Procedure Note Interface, Radiology Results Incoming - 11/12/2018 5:19 AM MENTAL HYGIENIST EXAMINATION: CT ABDOMEN PELVIS WO CONTRAST CLINICAL HISTORY: abd pain TECHNIQUE: Multiple axial images of the abdomen and pelvis were obtained without intravenous administration of iodinated contrast. Sagittal and coronal computerized reformatted images were also obtained. The lack of intravenous contrast reduces the sensitivity of detecting solid organ disease. CT imaging was performed with iterative reconstruction technique and/or automated exposure control to reduce radiation dose. COMPARISON: None. IMPRESSION: Slight eventration of right hemidiaphragm. Some atelectasis is seen of the lung bases. Liver, gallbladder, spleen, pancreas, adrenal glands are normal. Kidneys, ureters are normal. Marked distention of the bladder is seen. No free intraperitoneal fluid or air. A few diverticula are seen without diverticulitis. The appendix is normal. No gastrointestinal tract obstruction. No acute osseous abnormalities. There is a 1.6 x 1.5 cm sebaceous cyst of the right gluteal region. Summary: Marked distention of the bladder is seen. Consider neurogenic bladder or outlet obstruction. Otherwise unremarkable exam. [facility]-[id number] Performing Organization Address City/State/Zipcode Phone Number [facility] [address] [place] [address] Urinalysis screen and microscopy, with reflex to culture (11/12/2018 5:00 AM MENTAL HYGIENIST) Specimen site Catheterized [facility] Color, UA Straw [facility] Appearance, UA Clear [facility] Specific gravity, UA 1.011 1.001 - 1.035 [facility] pH, UA 6.0 5.0 - 8.5 [facility] Protein, UA 1+ (A) Negative [facility] Glucose, UA 3+ (A) Negative [facility] Ketones, UA Negative Negative [facility] Bilirubin, UA Negative Negative [facility] Blood, UA Negative Negative [facility] Nitrite, UA Negative Negative [facility] Urobilinogen, UA <2.0 <2.0 [facility] Leukocyte esterase, Negative Negative [facility] Epithelial cells, UA <1 /HPF [facility] WBC, UA <1 0 - 1 /HPF [facility] RBC, UA 5 0 - 5 /HPF [facility] Bacteria, UA None seen None seen [facility] Yeast, UA None seen [facility] Yeast with None seen [facility] pseudohyphae, [facility] Hyaline casts, UA 1 /LPF [facility] Specimen Urine Performing Organization Address City/[facility] Phone Number [facility] DEPARTMENT OF PATHOLOGY AND [address] [place] [phone] Urine culture (11/12/2018 5:00 AM MENTAL HYGIENIST) Urine culture SEE COMMENTComment: [facility] Bacteriuria screen HOSPITAL negative. Specimen Performing Organization Address City/[facility] Phone Number [facility] DEPARTMENT OF PATHOLOGY AND [address] [place] [address] XR Chest 1 Vw Portable (11/12/2018 4:59 AM MENTAL HYGIENIST) Specimen Narrative Performed At EXAMINATION:XR CHEST 1 VW PORTABLE [facility] CLINICAL HISTORY:hypotension COMPARISON:None IMPRESSION: Slight eventration of right hemidiaphragm. No consolidations, effusions, or pneumothorax. Cardiomediastinal silhouette is within normal limits. No acute osseous abnormalities. [facility]-[id number] Procedure Note Hm Interface, Radiology Results Incoming - 11/12/2018 5:11 AM MENTAL HYGIENIST EXAMINATION: XR CHEST 1 VW PORTABLE CLINICAL HISTORY: hypotension COMPARISON: None IMPRESSION: Slight eventration of right hemidiaphragm. No consolidations, effusions, or pneumothorax. Cardiomediastinal silhouette is within normal limits. No acute osseous abnormalities. [facility]-[id number] Performing Organization Address City/State/Zipcode Phone Number [facility] [address] [place] [phone] Troponin (11/12/2018 4:15 AM MENTAL HYGIENIST) Troponin <0.30 0.00 - 0.30 [facility] Comment: ng/mL HOSPITAL 0.30 - 1.49 ng/mlMay indicate increased risk of acute coronary syndrome. >=1.5 ng/mlConsistent with acute myocardial infarction. The diagnostic value of a single normal or non-diagnostic result is questionable.Serial samples at 2-6 hour intervals are required to rule out acute myocardial injury. Specimen Plasma specimen Performing Organization Address [facility] Phone Number [facility] DEPARTMENT OF PATHOLOGY AND [address] [place] [phone] [address] B natriuretic peptide (11/12/2018 4:15 AM MENTAL HYGIENIST) BNP 17 0 - 100 pg/mL [facility] Specimen Performing Organization Address [facility] - [facility] Phone Number [facility] DEPARTMENT OF PATHOLOGY AND [address] [place] [phone] Lipase level (11/12/2018 4:15 AM MENTAL HYGIENIST) Lipase 21 13 - 60 U/L [facility] Specimen Plasma specimen Performing Organization Address City/[facility] Phone Number [facility] DEPARTMENT OF PATHOLOGY AND [address] [place] [phone] [address] Lactic acid level (11/12/2018 4:15 AM MENTAL HYGIENIST) Lactic acid 2.2 0.5 - 2.2 mmol/L [facility] Specimen Plasma specimen Performing Organization Address [facility] Phone Number [facility] DEPARTMENT OF PATHOLOGY AND [address] [place] [phone] [address] Comprehensive metabolic panel (11/12/2018 4:15 AM MENTAL HYGIENIST) Sodium 139 135 - 148 [facility] mEq/L [facility] Potassium 3.9 3.5 - 5.0 [facility] mEq/L [facility] Chloride 106 98 - 112 mEq/L [facility] CO2 24 24 - 31 mEq/L [facility] Anion gap 9@ANIO 7 - 15 mEq/L [facility] BUN 23 (H) 6 - 20 mg/dL [facility] Creatinine 1.40 (H) 0.70 - 1.20 [facility] mg/dL [facility] Glucose 212 (H) 65 - 99 mg/dL [facility] Calcium 8.4 8.3 - 10.2 [facility] mg/dL [facility] Protein 5.9 (L) 6.3 - 8.3 g/dL [facility] Comment: HOSPITAL 4.6-7.0 g/dL 1 week 4.4-7.6 g/dL 7 months-1year5.1-7.3 g/dL 1-2 years5.6-7.5 g/dL >3 years6.0-8.0 g/dL 18-150 6.3-8.3 g/dL Albumin 2.7 (L) 3.5 - 5.0 g/dL [facility] A/G ratio 0.8 0.7 - 3.8 [facility] Alkaline phosphatase 103 40 - 129 U/L [facility] AST 11 10 - 50 U/L [facility] ALT 10 5 - 50 U/L [facility] Total bilirubin <0.2 0.0 - 1.2 [facility] mg/dL [facility] Specimen Plasma specimen Performing Organization Address City/State/Zipcode Phone Number [facility] DEPARTMENT OF PATHOLOGY AND [address] [place] [phone] [facility] [address] [address] CRITICAL CARE (11/12/2018 4:14 AM MENTAL HYGIENIST) Narrative Performed At Kody Steiner MD 11/12/20187:37 AM Critical Care Performed by: Diamond Allen MD Authorized by: Diamond Allen MD Critical care provider statement: Critical care time (minutes):35 Critical care time was exclusive of:Separately billable procedures and treating other patients Critical care was necessary to treat or prevent imminent or life-threatening deterioration of the following conditions: Hypotensive crisis. Critical care was time spent personally by me on the following activities:Blood draw for specimens, development of treatment plan with patient or surrogate, discussions with consultants, evaluation of patient's response to treatment, examination of patient, interpretation of cardiac output measurements, obtaining history from patient or surrogate, ordering and performing treatments and interventions, ordering and review of laboratory studies, ordering and review of radiographic studies, pulse oximetry, re-evaluation of patient's condition and review of old charts ECG 12 lead (11/12/2018 4:02 AM MENTAL HYGIENIST) Ventricular rate 72 [facility] Atrial rate 72 [facility] MD interval 120 [facility] QRSD interval 92 [facility] QT interval 384 [facility] QTC interval 420 [facility] P axis 1 26 [facility] QRS axis 1 66 [facility] T wave axis -46 [facility] EKG impression Normal sinus [facility] rhythm-Inferior infarct , age undetermined-Abnormal ECG-No previous ECGs available-Electronicall y Signed By Eric Chaves MD ([id number]) on 11/12/2018 11:06:56 PM Specimen Narrative Performed At Performing Organization Address City/State/Zipcode Phone Number [facility] [address] [place] [address] after 02/07/2018 Insurance Payer Benefit Plan / Subscriber ID Effective Dates Phone Address Type Group MEDICARE MEDICARE PART A xxxxxxxxxxx 2008-Present [place], [place] Medicare [place] B MEDICAID MEDICAID xxxxxxxxx 2011-Present Medicaid Advance Directives Patient has advance care planning documents on file. For more information, please contact:Paddy Bowie[address] [place] [address]
--- OUTSIDE RECORDS SUMMARY | 2019-02-08 02:30 | XMS REPORT ---
:1985 [facility] [address] [place] [address] Care Team Providers Name Role Phone UNKNOWN, [...] Type Clinicians Facility Department ID 2017-12-16 Inpatient [facility] [id number] 09:23:00 2017-07-02 2017-07-07 Inpatient [facility] [id number] 14:57:00 22:44:00 [place] Results Test Description Test [...] the Main Lab for Analysis. Comprehensive Metabolic [id number] 07:08:00 Test Item Value Reference Range Comments [...] race is not provided, and the patient isAfrican-Bahamian, multiply by 1.212. If sex is not [...] the National Kidney Foundation,http://nkdep.nih .gov CBC with [id number] 06:48:00 Test Item Value Reference Range Comments [...] Lymph Abs (test code=ALYMPH) 4.5 K/cumm 0.5-4.6 [place] Abs (test code=AMONO) 0.6 K/cumm 0.0-1.2 Eos Abs (test code=AEOS) 0.18 K/cumm 0.00-0.74 Baso Abs (test code=ABASO) 0.1 K/cumm 0.00-0.21 Microcytosis (test code=MICRO) Slight Hypochromic (test code=HYPO) Slight POC Glucose, [id number] 19:07:00 Test Item Value Reference Range Comments POC Glucose (test 227 mg/dL 70-115 If you consider your patient code=POCGLUC) critically ill, the [place] Accu-Chek InformII metershould not be used for Glucose determinations.Draw a venous Glucose and send to the Main Lab for Analysis. POC Glucose, [id number] 16:11:00 Test Item Value Reference Range Comments POC Glucose (test 266 mg/dL 70-115 If you consider your patient code=POCGLUC) critically ill, the [place] Accu-Chek InformII metershould not be used for Glucose determinations.Draw a venous Glucose and send to the Main Lab for Analysis. POC Glucose, [id number] 11:36:00 Test Item Value Reference Range Comments POC Glucose (test 69 mg/dL 70-115 If you consider your patient code=POCGLUC) critically ill, the [place] Accu-Chek InformII metershould not be used for Glucose determinations.Draw a venous Glucose and send to the Main Lab for Analysis. POC Glucose, [id number] 07:45:00 Test Item Value Reference Range Comments POC Glucose (test 234 mg/dL 70-115 If you consider your patient code=POCGLUC) critically ill, the [place] Accu-Chek InformII metershould not be used for Glucose determinations.Draw a venous Glucose and send to the Main Lab for Analysis. POC Glucose, [id number] 19:15:00 Test Item Value Reference Range Comments POC Glucose (test 148 mg/dL 70-115 If you consider your patient code=POCGLUC) critically ill, the [place] Accu-Chek InformII metershould not be used for Glucose determinations.Draw a venous Glucose and send to the Main Lab for Analysis. POC Glucose, [id number] 15:37:00 Test Item Value Reference Range Comments POC Glucose (test 133 mg/dL 70-115 If you consider your patient code=POCGLUC) critically ill, the [place] Accu-Chek InformII metershould not be used for Glucose determinations.Draw a venous Glucose and send to the Main Lab for Analysis. POC Glucose, [id number] 11:10:00 Test Item Value Reference Range Comments POC Glucose (test 203 mg/dL 70-115 Notify RN or MDIf you consider code=POCGLUC) your patient critically ill, the [place] Accu-Chek InformII metershould not be used for Glucose determinations.Draw a venous Glucose and send to the Main Lab for Analysis. POC Glucose, [id number] 07:29:00 Test Item Value Reference Range Comments POC Glucose (test 261 mg/dL 70-115 Notify RN or MDIf you consider code=POCGLUC) your patient critically ill, the [place] Accu-Chek InformII metershould not be used for Glucose determinations.Draw a venous Glucose and send to the Main Lab for Analysis. POC Glucose, [id number] 19:32:00 Test Item Value Reference Range Comments POC Glucose (test 226 mg/dL 70-115 If you consider your patient code=POCGLUC) critically ill, the [place] Accu-Chek InformII metershould not be used for Glucose determinations.Draw a venous Glucose and send to the Main Lab for Analysis. POC Glucose, [id number] 15:58:00 Test Item Value Reference Range Comments POC Glucose (test 138 mg/dL 70-115 Notify RN or MDIf you consider code=POCGLUC) your patient critically ill, the [place] Accu-Chek InformII metershould not be used for Glucose determinations.Draw a venous Glucose and send to the Main Lab for Analysis. POC Glucose, [id number] 11:48:00 Test Item Value Reference Range Comments POC Glucose (test 154 mg/dL 70-115 Notify RN or MDIf you consider code=POCGLUC) your patient critically ill, the [place] Accu-Chek InformII metershould not be used for Glucose determinations.Draw a venous Glucose and send to the Main Lab for Analysis. POC Glucose, [id number] 07:23:00 Test Item Value Reference Range Comments POC Glucose (test 131 mg/dL 70-115 Notify RN or MDIf you consider code=POCGLUC) your patient critically ill, the [place] Accu-Chek InformII metershould not be used for Glucose determinations.Draw a venous Glucose and send to the Main Lab for Analysis. POC Glucose, [id number] 19:38:00 Test Item Value Reference Range Comments POC Glucose (test 160 mg/dL 70-115 If you consider your patient code=POCGLUC) critically ill, the [place] Accu-Chek InformII metershould not be used for Glucose determinations.Draw a venous Glucose and send to the Main Lab for Analysis. POC Glucose, [id number] 17:27:00 Test Item Value Reference Range Comments POC Glucose (test 191 mg/dL 70-115 If you consider your patient code=POCGLUC) critically ill, the [place] Accu-Chek InformII metershould not be used for Glucose determinations.Draw a venous Glucose and send to the Main Lab for Analysis. POC Glucose, [id number] 14:19:00 Test Item Value Reference Range Comments POC Glucose (test 252 mg/dL 70-115 If you consider your patient code=POCGLUC) critically ill, the [place] Accu-Chek InformII metershould not be used for Glucose determinations.Draw a venous Glucose and send to the Main Lab for Analysis. POC Glucose, [id number] 11:41:00 Test Item Value Reference Range Comments POC Glucose (test 114 mg/dL 70-115 If you consider your patient code=POCGLUC) critically ill, the [place] Accu-Chek InformII metershould not be used for Glucose determinations.Draw a venous Glucose and send to the Main Lab for Analysis. POC Glucose, [id number] 05:58:00 Test Item Value Reference Range Comments POC Glucose (test 347 mg/dL 70-115 If you consider your patient code=POCGLUC) critically ill, the [place] Accu-Chek InformII metershould not be used for Glucose determinations.Draw a venous Glucose and send to the Main Lab for Analysis. POC Glucose, [id number] 19:27:00 Test Item Value Reference Range Comments POC Glucose (test 334 mg/dL 70-115 Notify RN or MDIf you consider code=POCGLUC) your patient critically ill, the [place] Accu-Chek InformII metershould not be used for Glucose determinations.Draw a venous Glucose and send to the Main Lab for Analysis. POC Glucose, [id number] 15:02:00 Test Item Value Reference Range Comments POC Glucose (test 72 mg/dL 70-115 If you consider your patient code=POCGLUC) critically ill, the [place] Accu-Chek InformII metershould not be used for Glucose determinations.Draw a venous Glucose and send to the Main Lab for Analysis. POC Glucose, [id number] 12:14:00 Test Item Value Reference Range Comments POC Glucose (test 110 mg/dL 70-115 If you consider your patient code=POCGLUC) critically ill, the [place] Accu-Chek InformII metershould not be used for Glucose determinations.Draw a venous Glucose and send to the Main Lab for Analysis. POC Glucose, [id number] 06:03:00 Test Item Value Reference Range Comments POC Glucose (test 224 mg/dL 70-115 If you consider your patient code=POCGLUC) critically ill, the [place] Accu-Chek InformII metershould not be used for Glucose determinations.Draw a venous Glucose and send to the Main Lab for Analysis. POC Glucose, [id number] 19:29:00 Test Item Value Reference Range Comments POC Glucose (test 300 mg/dL 70-115 Notify RN or MDIf you consider code=POCGLUC) your patient critically ill, the [place] Accu-Chek InformII metershould not be used for Glucose determinations.Draw a venous Glucose and send to the Main Lab for Analysis. POC Glucose, [id number] 16:00:00 Test Item Value Reference Range Comments POC Glucose (test 283 mg/dL 70-115 Notify RN or MDIf you consider code=POCGLUC) your patient critically ill, the [place] Accu-Chek InformII metershould not be used for Glucose determinations.Draw a venous Glucose and send to the Main Lab for Analysis. RPR, [id number] 14:24:00 Test Item Value Reference Range Comments RPR (test code=RPR) Non-Reactive Non-Reactive POC Glucose, [id number] 11:09:00 Test Item Value Reference Range Comments [...] TSH (test code=TSH) 2.05 mIU/mL 0.270-4.200 Lipid [id number] 08:56:00 Test Item Value Reference Range Comments Cholesterol (test 215 mg/dL 0-200 code=CHOL) Triglycerides (test 370 mg/dL 9-200 code=TRIG) HDL (test code=HDL) 33 mg/dL 40-60 Chol/HDL (test 6.5 Ratio 0.0-5.0 code=CHOLPHDL) LDL, Calculated (test 108 0-130 (NOTE)RISK OF HEART code=LDLC) DISEASEPublished by [place] Heart AssociationAnalyte Optimal Boderline Increased RiskCHOL <200 200-239 >240TRIG <150 150-199 >200HDL Male: >60 <40HDL Female: >60 <50LDL <100 130-159 >160LDL NEAR OPTIMAL IS 100-129 VLDL (test code=VLDL) 74 mg/dL 5-40 LDL/HDL (test code=LDLPHDL) 3 POC Glucose, [id number] 05:44:00 Test Item Value Reference Range Comments POC Glucose (test 229 mg/dL 70-115 Notify RN or MDIf you consider code=POCGLUC) your patient critically ill, the [place] Accu-Chek InformII metershould not be used for Glucose determinations.Draw a venous Glucose and send to the Main Lab for Analysis. POC Glucose, [id number] 11:20:00 Test Item Value Reference Range Comments POC Glucose (test 160 mg/dL 70-115 If you consider your patient code=POCGLUC) critically ill, the [place] Accu-Chek InformII metershould not be used for Glucose determinations.Draw a venous Glucose and send to the Main Lab for Analysis. POC Glucose, [id number] 07:41:00 Test Item Value Reference Range Comments POC Glucose (test 121 mg/dL 70-115 If you consider your patient code=POCGLUC) critically ill, the [place] Accu-Chek InformII metershould not be used for Glucose determinations.Draw a venous Glucose and send to the Main Lab for Analysis. POC Glucose, [id number] 21:24:00 Test Item Value Reference Range Comments POC Glucose (test 108 mg/dL 70-115 If you consider your patient code=POCGLUC) critically ill, the [place] Accu-Chek InformII metershould not be used for Glucose determinations.Draw a venous Glucose and send to the Main Lab for Analysis. POC Glucose, [id number] 15:55:00 Test Item Value Reference Range Comments POC Glucose (test 160 mg/dL 70-115 Notify RN or MDIf you consider code=POCGLUC) your patient critically ill, the [place] Accu-Chek InformII metershould not be used for Glucose determinations.Draw a venous Glucose and send to the Main Lab for Analysis. POC Glucose, [id number] 11:21:00 Test Item Value Reference Range Comments POC Glucose (test 111 mg/dL 70-115 If you consider your patient code=POCGLUC) critically ill, the [place] Accu-Chek InformII metershould not be used for Glucose determinations.Draw a venous Glucose and send to the Main Lab for Analysis. POC Glucose, [id number] 08:06:00 Test Item Value Reference Range Comments POC Glucose (test 135 mg/dL 70-115 If you consider your patient code=POCGLUC) critically ill, the [place] Accu-Chek InformII metershould not be used for Glucose determinations.Draw a venous Glucose and send to the Main Lab for Analysis. POC Glucose, [id number] 22:43:00 Test Item Value Reference Range Comments POC Glucose (test 106 mg/dL 70-115 If you consider your patient code=POCGLUC) critically ill, the [place] Accu-Chek InformII metershould not be used for Glucose determinations.Draw a venous Glucose and send to the Main Lab for Analysis. POC Glucose, [id number] 16:42:00 Test Item Value Reference Range Comments POC Glucose (test 96 mg/dL 70-115 If you consider your patient code=POCGLUC) critically ill, the [place] Accu-Chek InformII metershould not be used for Glucose determinations.Draw a venous Glucose and send to the Main Lab for Analysis. POC Glucose, [id number] 11:10:00 Test Item Value Reference Range Comments POC Glucose (test 149 mg/dL 70-115 Notify RN or MDIf you consider code=POCGLUC) your patient critically ill, the [place] Accu-Chek InformII metershould not be used for Glucose determinations.Draw a venous Glucose and send to the Main Lab for Analysis. POC Glucose, [id number] 07:26:00 Test Item Value Reference Range Comments POC Glucose (test 124 mg/dL 70-115 If you consider your patient code=POCGLUC) critically ill, the [place] Accu-Chek InformII metershould not be used for Glucose determinations.Draw a venous Glucose and send to the Main Lab for Analysis. POC Glucose, [id number] 21:16:00 Test Item Value Reference Range Comments POC Glucose (test 164 mg/dL 70-115 Notify RN or MDIf you consider code=POCGLUC) your patient critically ill, the [place] Accu-Chek InformII metershould not be used for Glucose determinations.Draw a venous Glucose and send to the Main Lab for Analysis. POC Glucose, [id number] 16:34:00 Test Item Value Reference Range Comments POC Glucose (test 100 mg/dL 70-115 If you consider your patient code=POCGLUC) critically ill, the [place] Accu-Chek InformII metershould not be used for Glucose determinations.Draw a venous Glucose and send to the Main Lab for Analysis. POC Glucose, [id number] 11:06:00 Test Item Value Reference Range Comments POC Glucose (test 120 mg/dL 70-115 If you consider your patient code=POCGLUC) critically ill, the [place] Accu-Chek InformII metershould not be used for Glucose determinations.Draw a venous Glucose and send to the Main Lab for Analysis. POC Glucose, [id number] 07:30:00 Test Item Value Reference Range Comments POC Glucose (test 80 mg/dL 70-115 If you consider your patient code=POCGLUC) critically ill, the [place] Accu-Chek InformII metershould not be used for Glucose determinations.Draw a venous Glucose and send to the Main Lab for Analysis. POC Glucose, [id number] 21:17:00 Test Item Value Reference Range Comments POC Glucose (test 175 mg/dL 70-115 Notify RN or MDIf you consider code=POCGLUC) your patient critically ill, the [place] Accu-Chek InformII metershould not be used for Glucose determinations.Draw a venous Glucose and send to the Main Lab for Analysis. POC Glucose, [id number] 17:46:00 Test Item Value Reference Range Comments POC Glucose (test 128 mg/dL 70-115 If you consider your patient code=POCGLUC) critically ill, the [place] Accu-Chek InformII metershould not be used for Glucose determinations.Draw a venous Glucose and send to the Main Lab for Analysis. POC Glucose, [id number] 11:35:00 Test Item Value Reference Range Comments POC Glucose (test 134 mg/dL 70-115 If you consider your patient code=POCGLUC) critically ill, the [place] Accu-Chek InformII metershould not be used for Glucose determinations.Draw a venous Glucose and send to the Main Lab for Analysis. POC Glucose, [id number] 08:10:00 Test Item Value Reference Range Comments POC Glucose (test 220 mg/dL 70-115 If you consider your patient code=POCGLUC) critically ill, the [place] Accu-Chek InformII metershould not be used for Glucose determinations.Draw a venous Glucose and send to the Main Lab for Analysis. Comprehensive Metabolic [id number] 06:52:00 Test Item Value Reference Range Comments [...] race is not provided, and the patient isAfrican-[place], multiply by 1.212. If sex is not [...] the National Kidney Foundation,http://nkdep.nih .gov CBC with [id number] 06:34:00 Test Item Value Reference Range Comments [...] Lymph Abs (test code=ALYMPH) 2.4 K/cumm 0.5-4.6 [place] Abs (test code=AMONO) 0.7 K/cumm 0.0-1.2 Eos Abs (test code=AEOS) 0.19 K/cumm 0.00-0.74 Baso Abs (test code=ABASO) 0.1 K/cumm 0.00-0.21 Microcytosis (test code=MICRO) Slight POC Glucose, [id number] 20:28:00 Test Item Value Reference Range Comments POC Glucose (test 211 mg/dL 70-115 If you consider your patient code=POCGLUC) critically ill, the [place] Accu-Chek InformII metershould not be used for Glucose determinations.Draw a venous Glucose and send to the Main Lab for Analysis. POC Glucose, [id number] 17:09:00 Test Item Value Reference Range Comments POC Glucose (test 146 mg/dL 70-115 If you consider your patient code=POCGLUC) critically ill, the [place] Accu-Chek InformII metershould not be used for Glucose determinations.Draw a venous Glucose and send to the Main Lab for Analysis. POC Glucose, [id number] 11:53:00 Test Item Value Reference Range Comments POC Glucose (test 136 mg/dL 70-115 If you consider your patient code=POCGLUC) critically ill, the [place] Accu-Chek InformII metershould not be used for Glucose determinations.Draw a venous Glucose and send to the Main Lab for Analysis. POC Glucose, [id number] 07:57:00 Test Item Value Reference Range Comments POC Glucose (test 143 mg/dL 70-115 If you consider your patient code=POCGLUC) critically ill, the [place] Accu-Chek InformII metershould not be used for Glucose determinations.Draw a venous Glucose and send to the Main Lab for Analysis. POC Glucose, [id number] 20:38:00 Test Item Value Reference Range Comments POC Glucose (test 152 mg/dL 70-115 Notify RN or MDIf you consider code=POCGLUC) your patient critically ill, the [place] Accu-Chek InformII metershould not be used for Glucose determinations.Draw a venous Glucose and send to the Main Lab for Analysis. POC Glucose, [id number] 16:49:00 Test Item Value Reference Range Comments POC Glucose (test 171 mg/dL 70-115 Notify RN or MDIf you consider code=POCGLUC) your patient critically ill, the [place] Accu-Chek InformII metershould not be used for Glucose determinations.Draw a venous Glucose and send to the Main Lab for Analysis. POC Glucose, [id number] 11:10:00 Test Item Value Reference Range Comments POC Glucose (test 160 mg/dL 70-115 Notify RN or MDIf you consider code=POCGLUC) your patient critically ill, the [place] Accu-Chek InformII metershould not be used for Glucose determinations.Draw a venous Glucose and send to the Main Lab for Analysis. POC Glucose, [id number] 07:36:00 Test Item Value Reference Range Comments POC Glucose (test 126 mg/dL 70-115 If you consider your patient code=POCGLUC) critically ill, the [place] Accu-Chek InformII metershould not be used for Glucose determinations.Draw a venous Glucose and send to the Main Lab for Analysis. POC Glucose, [id number] 20:51:00 Test Item Value Reference Range Comments POC Glucose (test 165 mg/dL 70-115 Notify RN or MDIf you consider code=POCGLUC) your patient critically ill, the [place] Accu-Chek InformII metershould not be used for Glucose determinations.Draw a venous Glucose and send to the Main Lab for Analysis. POC Glucose, [id number] 16:42:00 Test Item Value Reference Range Comments POC Glucose (test 133 mg/dL 70-115 If you consider your patient code=POCGLUC) critically ill, the [place] Accu-Chek InformII metershould not be used for Glucose determinations.Draw a venous Glucose and send to the Main Lab for Analysis. POC Glucose, [id number] 11:19:00 Test Item Value Reference Range Comments POC Glucose (test 250 mg/dL 70-115 Notify RN or MDIf you consider code=POCGLUC) your patient critically ill, the [place] Accu-Chek InformII metershould not be used for Glucose determinations.Draw a venous Glucose and send to the Main Lab for Analysis. Culture, [id number] 08:19:00Specimen: UrineCollected: 07/10/2017 12:47 Status: Final Last Updated: 07/12/2017 08:19 Culture Result (Final) (Final ) 07/11/17 No growth 24 hours 07/12/17 No growth 48 hoursPOC Glucose, [id number] 07:26:00 Test Item Value Reference Range Comments POC Glucose (test 131 mg/dL 70-115 Notify RN or MDIf you consider code=POCGLUC) your patient critically ill, the [place] Accu-Chek InformII metershould not be used for Glucose determinations.Draw a venous Glucose and send to the Main Lab for Analysis. POC Glucose, [id number] 20:55:00 Test Item Value Reference Range Comments POC Glucose (test 140 mg/dL 70-115 If you consider your patient code=POCGLUC) critically ill, the [place] Accu-Chek InformII metershould not be used for Glucose determinations.Draw a venous Glucose and send to the Main Lab for Analysis. POC Glucose, [id number] 16:13:00 Test Item Value Reference Range Comments POC Glucose (test 151 mg/dL 70-115 Notify RN or MDIf you consider code=POCGLUC) your patient critically ill, the [place] Accu-Chek InformII metershould not be used for Glucose determinations.Draw a venous Glucose and send to the Main Lab for Analysis. POC Glucose, [id number] 11:43:00 Test Item Value Reference Range Comments POC Glucose (test 170 mg/dL 70-115 Notify RN or MDIf you consider code=POCGLUC) your patient critically ill, the [place] Accu-Chek InformII metershould not be used for Glucose determinations.Draw a venous Glucose and send to the Main Lab for Analysis. POC Glucose, [id number] 07:23:00 Test Item Value Reference Range Comments POC Glucose (test 207 mg/dL 70-115 Notify RN or MDIf you consider code=POCGLUC) your patient critically ill, the [place] Accu-Chek InformII metershould not be used for Glucose determinations.Draw a venous Glucose and send to the Main Lab for Analysis. POC Glucose, [id number] 20:24:00 Test Item Value Reference Range Comments POC Glucose (test 208 mg/dL 70-115 If you consider your patient code=POCGLUC) critically ill, the [place] Accu-Chek InformII metershould not be used for Glucose determinations.Draw a venous Glucose and send to the Main Lab for Analysis. POC Glucose, [id number] 17:14:00 Test Item Value Reference Range Comments POC Glucose (test 158 mg/dL 70-115 If you consider your patient code=POCGLUC) critically ill, the [place] Accu-Chek InformII metershould not be used for Glucose determinations.Draw a venous Glucose and send to the Main Lab for Analysis. Urinalysis [id number] 13:04:00 Test Item Value Reference Range Comments Color (test code=COLOR) Straw Yellow,Straw,Pl yellow Clarity (test code=CLAR) Clear Clear Specific [place] (test code=SPGR) 1.010 1.001-1.035 pH (test code=PH) [...] Exam (test code=MEXAM) Not indicated POC Glucose, [id number] 11:48:00 Test Item Value Reference Range Comments POC Glucose (test 135 mg/dL 70-115 If you consider your patient code=POCGLUC) critically ill, the [place] Accu-Chek InformII metershould not be used for Glucose determinations.Draw a venous Glucose and send to the Main Lab for Analysis. POC Glucose, [id number] 07:47:00 Test Item Value Reference Range Comments POC Glucose (test 173 mg/dL 70-115 If you consider your patient code=POCGLUC) critically ill, the [place] Accu-Chek InformII metershould not be used for Glucose determinations.Draw a venous Glucose and send to the Main Lab for Analysis. Basic Metabolic [id number] 05:18:00 Test Item Value Reference Range Comments [...] race is not provided, and the patient isAfrican-[place], multiply by 1.212. If sex is not [...] the National Kidney Foundation,http://nkdep.nih .gov CBC with [id number] 04:59:00 Test Item Value Reference Range Comments [...] Lymph Abs (test code=ALYMPH) 2.7 K/cumm 0.5-4.6 [place] Abs (test code=AMONO) 0.8 K/cumm 0.0-1.2 Eos Abs (test code=AEOS) 0.26 K/cumm 0.00-0.74 Baso Abs (test code=ABASO) 0.0 K/cumm 0.00-0.21 POC Glucose, [id number] 20:59:00 Test Item Value Reference Range Comments POC Glucose (test 199 mg/dL 70-115 Notify RN or MDIf you consider code=POCGLUC) your patient critically ill, the [place] Accu-Chek InformII metershould not be used for Glucose determinations.Draw a venous Glucose and send to the Main Lab for Analysis. POC Glucose, [id number] 16:26:00 Test Item Value Reference Range Comments POC Glucose (test 170 mg/dL 70-115 Notify RN or MDIf you consider code=POCGLUC) your patient critically ill, the [place] Accu-Chek InformII metershould not be used for Glucose determinations.Draw a venous Glucose and send to the Main Lab for Analysis. POC Glucose, [id number] 11:41:00 Test Item Value Reference Range Comments POC Glucose (test 246 mg/dL 70-115 If you consider your patient code=POCGLUC) critically ill, the [place] Accu-Chek InformII metershould not be used for Glucose determinations.Draw a venous Glucose and send to the Main Lab for Analysis. Glycosylated [id number] 07:39:00 Test Item Value Reference Range Comments HBA1c (test code=HBA1C) 9.1 % 4.8-5.9 POC Glucose, [id number] 07:36:00 Test Item Value Reference Range Comments POC Glucose (test 206 mg/dL 70-115 If you consider your patient code=POCGLUC) critically ill, the [place] Accu-Chek InformII metershould not be used for Glucose determinations.Draw a venous Glucose and send to the Main Lab for Analysis. CBC with [id number] 06:09:00 Test Item Value Reference Range Comments [...] Lymph Abs (test code=ALYMPH) 3.5 K/cumm 0.5-4.6 [place] Abs (test code=AMONO) 1.0 K/cumm 0.0-1.2 Eos Abs (test code=AEOS) 0.19 K/cumm 0.00-0.74 Baso Abs (test code=ABASO) 0.1 K/cumm 0.00-0.21 Microcytosis (test code=MICRO) Slight Comprehensive Metabolic [id number] 06:00:00 Test Item Value Reference Range Comments [...] race is not provided, and the patient isAfrican-B[place], multiply by 1.212. If sex is not provided, and thepatient is female, multiply by 0.742. Results for patients <18 years ofage have not been validated by the MDRD study and should be interpretedwith caution.eGFR Result Interpretation:eGFR > or=60 is in the Normal RangeeGFR < 60 may mean kidney diseaseeGFR < 15 may mean kidney failureRanges recommended by the National Kidney Foundation,http://nkdep.nih .gov Magnesium, [id number] 06:00:00 Test Item Value Reference Range Comments Magnesium (test code=MG) 2.2 mg/dL 1.7-2.5 [id number] 06:00:00 Test Item Value Reference Range Comments Phosphorus (test code=PO4) 2.8 mg/dL 2.70-4.50 POC Glucose, [id number] 20:44:00 Test Item Value Reference Range Comments POC Glucose (test 199 mg/dL 70-115 If you consider your patient code=POCGLUC) critically ill, the [place] Accu-Chek InformII metershould not be used for Glucose determinations.Draw a venous Glucose and send to the Main Lab for Analysis. POC Glucose, [id number] 16:28:00 Test Item Value Reference Range Comments POC Glucose (test 242 mg/dL 70-115 Notify RN or MDIf you consider code=POCGLUC) your patient critically ill, the [place] Accu-Chek InformII metershould not be used for Glucose determinations.Draw a venous Glucose and send to the Main Lab for Analysis. POC Glucose, [id number] 13:37:00 Test Item Value Reference Range Comments POC Glucose (test 131 mg/dL 70-115 If you consider your patient code=POCGLUC) critically ill, the [place] Accu-Chek InformII metershould not be used for Glucose determinations.Draw a venous Glucose and send to the Main Lab for Analysis. POC Glucose, [id number] 12:14:00 Test Item Value Reference Range Comments POC Glucose (test 100 mg/dL 70-115 If you consider your patient code=POCGLUC) critically ill, the [place] Accu-Chek InformII metershould not be used for Glucose determinations.Draw a venous Glucose and send to the Main Lab for Analysis. POC Glucose, [id number] 07:30:00 Test Item Value Reference Range Comments POC Glucose (test 123 mg/dL 70-115 If you consider your patient code=POCGLUC) critically ill, the [place] Accu-Chek InformII metershould not be used for Glucose determinations.Draw a venous Glucose and send to the Main Lab for Analysis. Basic Metabolic [id number] 06:05:00 Test Item Value Reference Range Comments [...] race is not provided, and the patient isAfrican-Bahamian, multiply by 1.212. If sex is not [...] the National Kidney Foundation,http://nkdep.nih .gov CBC with [id number] 05:44:00 Test Item Value Reference Range Comments [...] Lymph Abs (test code=ALYMPH) 4.8 K/cumm 0.5-4.6 [place] Abs (test code=AMONO) 0.8 K/cumm 0.0-1.2 Eos Abs (test code=AEOS) 0.34 K/cumm 0.00-0.74 Baso Abs (test code=ABASO) 0.1 K/cumm 0.00-0.21 POC Glucose, [id number] 20:29:00 Test Item Value Reference Range Comments POC Glucose (test 152 mg/dL 70-115 If you consider your patient code=POCGLUC) critically ill, the [place] Accu-Chek InformII metershould not be used for Glucose determinations.Draw a venous Glucose and send to the Main Lab for Analysis. Antibody Screen - [id number] 17:58:00 Test Item Value Reference Range Comments Antibody Screen (test code=ABSCR) Negative Blood Type and [id number] 17:44:00 Test Item Value Reference Range Comments ABO type (test code=ABO) A Rh Type (test code=RH) Positive POC Glucose, [id number] 16:09:00 Test Item Value Reference Range Comments POC Glucose (test 192 mg/dL 70-115 If you consider your patient code=POCGLUC) critically ill, the [place] Accu-Chek InformII metershould not be used for Glucose determinations.Draw a venous Glucose and send to the Main Lab for Analysis. POC Glucose, [id number] 12:11:00 Test Item Value Reference Range Comments POC Glucose (test 249 mg/dL 70-115 If you consider your patient code=POCGLUC) critically ill, the [place] Accu-Chek InformII metershould not be used for Glucose determinations.Draw a venous Glucose and send to the Main Lab for Analysis. MRI LWR EXTRM NON-JNT WO [id number] 09:25:10LOCATION: [id number]: MRI LWR EXTRM NON-JNT WO CONTRST-LEFTINDICATION: LEFT [...] concerning for injury.US DUPLX LWR EXT ART/BPG, [id number] 08: 50:53US DUPLX LWR EXT ART/BPG, BILATCLINICAL HISTORY: non-healing woundsTechnique: Grayscale, color, and spectral sonography of the bilateral lower extremity arteries was performed.FINDINGS:Right leg (waveform / peak systolic velocity)OSTEOLOGIST: Triphasic 95 cm/secProx SFA: Triphasic 92 cm/secMid SFA: Triphasic 81 cm/secDistal SFA: Triphasic 83 cm/ secPopliteal: Triphasic 84 cm/secPTA: Monophasic 93 cm/ secATA: Triphasic 32 cm/secDPA: Not imaged/bandaging Left leg (waveform / peak systolic velocity)OSTEOLOGIST: Triphasic 88 cm/secProx SFA: Triphasic 93 cm/secMid SFA: Triphasic 82 cm/ secDistal SFA: Triphasic 49 cm/secPopliteal: Triphasic 60 cm/secPTA: Triphasic 73 cm/secATA: Triphasic 93 cm/secDPA: Not imaged/bandaging IMPRESSION: 1. Limited exam. Thedorsalis pedis arteries are not imaged.2. Abnormal monophasic waveform in the right posterior tibial artery.3. Otherwise unremarkable exam.Location: [id number] with [id number] 08:22:00 Test Item Value Reference Range Comments [...] Lymph Abs (test code=ALYMPH) 3.6 K/cumm 0.5-4.6 [place] Abs (test code=AMONO) 0.6 K/cumm 0.0-1.2 Eos Abs (test code=AEOS) 0.37 K/cumm 0.00-0.74 Baso Abs (test code=ABASO) 0.1 K/cumm 0.00-0.21 Basic Metabolic [id number] 08:03:00 Test Item Value Reference Range Comments [...] race is not provided, and the patient isAfrican-Bahamian, multiply by 1.212. If sex is not [...] the National Kidney Foundation,http://nkdep.nih .gov POC Glucose, [id number] 07:30:00 Test Item Value Reference Range Comments POC Glucose (test 110 mg/dL 70-115 If you consider your patient code=POCGLUC) critically ill, the [place] Accu-Chek InformII metershould not be used for Glucose determinations.Draw a venous Glucose and send to the Main Lab for Analysis. POC Glucose, [id number] 19:57:00 Test Item Value Reference Range Comments POC Glucose (test 124 mg/dL 70-115 If you consider your patient code=POCGLUC) critically ill, the [place] Accu-Chek InformII metershould not be used for Glucose determinations.Draw a venous Glucose and send to the Main Lab for Analysis. POC Glucose, [id number] 16:10:00 Test Item Value Reference Range Comments POC Glucose (test 114 mg/dL 70-115 Notify RN or MDIf you consider code=POCGLUC) your patient critically ill, the [place] Accu-Chek InformII metershould not be used for Glucose determinations.Draw a venous Glucose and send to the Main Lab for Analysis. POC Glucose, [id number] 11:18:00 Test Item Value Reference Range Comments POC Glucose (test 203 mg/dL 70-115 Notify RN or MDIf you consider code=POCGLUC) your patient critically ill, the [place] Accu-Chek InformII metershould not be used for Glucose determinations.Draw a venous Glucose and send to the Main Lab for Analysis. Culture, Wound [id number] 09:58:00Specimen: FootCollected: 2016 17:00 Status: Final Last [...] Streptococcus Beta Hemolytic Streptococcus Group GPOC Glucose, [id number] 07:23:00 Test Item Value Reference Range Comments POC Glucose (test 197 mg/dL 70-115 Notify RN or MDIf you consider code=POCGLUC) your patient critically ill, the [place] Accu-Chek InformII metershould not be used for Glucose determinations.Draw a venous Glucose and send to the Main Lab for Analysis. POC Glucose, [id number] 16:09:00 Test Item Value Reference Range Comments POC Glucose (test 194 mg/dL 70-115 If you consider your patient code=POCGLUC) critically ill, the [place] Accu-Chek InformII metershould not be used for Glucose determinations.Draw a venous Glucose and send to the Main Lab for Analysis. POC Glucose, [id number] 11:33:00 Test Item Value Reference Range Comments POC Glucose (test 193 mg/dL 70-115 If you consider your patient code=POCGLUC) critically ill, the [place] Accu-Chek InformII metershould not be used for Glucose determinations.Draw a venous Glucose and send to the Main Lab for Analysis. MRI LWR EXTRM NON-JNT WO [id number] 08:18:56EXAM: MRI right foot without contrastLocation: [id number]: History of amputation, rule out osteomyelitisCOMPARISON: Left [...] stump.3. Post amputation changes as described.POC Glucose, [id number] 07:15:00 Test Item Value Reference Range Comments POC Glucose (test 140 mg/dL 70-115 If you consider your patient code=POCGLUC) critically ill, the [place] Accu-Chek InformII metershould not be used for Glucose determinations.Draw a venous Glucose and send to the Main Lab for Analysis. Sed Rate ESR ([place])2017-07-05 06:40:00 Test Item Value Reference Range Comments ESR (test code=HESR) 54 mm/Hr 0-9 C-Reactive Protein, [id number] 05:41:00 Test Item Value Reference Range Comments CRP (test code=CRP) 34.7 mg/L 0.0-5.0 POC Glucose, [id number] 21:22:00 Test Item Value Reference Range Comments POC Glucose (test 141 mg/dL 70-115 If you consider your patient code=POCGLUC) critically ill, the [place] Accu-Chek InformII metershould not be used for Glucose determinations.Draw a venous Glucose and send to the Main Lab for Analysis. POC Glucose, [id number] 16:09:00 Test Item Value Reference Range Comments POC Glucose (test 156 mg/dL 70-115 If you consider your patient code=POCGLUC) critically ill, the [place] Accu-Chek InformII metershould not be used for Glucose determinations.Draw a venous Glucose and send to the Main Lab for Analysis. POC Glucose, [id number] 12:05:00 Test Item Value Reference Range Comments POC Glucose (test 170 mg/dL 70-115 If you consider your patient code=POCGLUC) critically ill, the [place] Accu-Chek InformII metershould not be used for Glucose determinations.Draw a venous Glucose and send to the Main Lab for Analysis. XR FOOT [id number] 08:56:55XR FOOT 2V-LEFTLOCATION: [id number]:left foot ulcer COMPARISON: None.DISCUSSION:Frontal and lateral radiographs [...] stump.2. No definite acute osseous abnormalities.XR FOOT [id number] 08:53:30XR FOOT 2V- RIGHTLOCATION: [id number]:right foot stump ulcer COMPARISON: None.DISCUSSION:Frontal and lateral radiographs of the right foot were obtained. Amputation changes at the proximal metatarsals are noted.No definite suspicious focal osseous destruction or periosteal reactionis seen.Otherwise, no acute fracture or dislocation is seen.The joint spaces are grossly preserved.IMPRESSION:1. 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 No definite acute osseous abnormalities.POC Glucose, [id number] 07:50:00 Test Item Value Reference Range Comments POC Glucose (test 139 mg/dL 70-115 If you consider your patient code=POCGLUC) critically ill, the [place] Accu-Chek InformII metershould not be used for Glucose determinations.Draw a venous Glucose and send to the Main Lab for Analysis. CBC with [id number] 06:19:00 Test Item Value Reference Range Comments [...] Lymph Abs (test code=ALYMPH) 2.7 K/cumm 0.5-4.6 [place] Abs (test code=AMONO) 0.6 K/cumm 0.0-1.2 Eos Abs (test code=AEOS) 0.32 K/cumm 0.00-0.74 Baso Abs (test code=ABASO) 0.1 K/cumm 0.00-0.21 Lipid [id number] 06:15:00 Test Item Value Reference Range Comments Cholesterol (test 133 mg/dL 0-200 code=CHOL) Triglycerides (test 164 mg/dL 9-200 code=TRIG) HDL (test code=HDL) 31 mg/dL 40-60 Chol/HDL (test 4.3 Ratio 0.0-5.0 code=CHOLPHDL) LDL, Calculated (test 69 0-130 (NOTE)RISK OF HEART code=LDLC) DISEASEPublished by [place] Heart AssociationAnalyte Optimal Boderline Increased RiskCHOL <200 200-239 >240TRIG <150 150-199 >200HDL Male: >60 <40HDL Female: >60 <50LDL <100 130-159 >160LDL NEAR OPTIMAL IS 100-129 VLDL (test code=VLDL) 33 mg/dL 5-40 LDL/HDL (test code=LDLPHDL) 2 POC Glucose, [id number] 17:14:00 Test Item Value Reference Range Comments POC Glucose (test 129 mg/dL 70-115 If you consider your patient code=POCGLUC) critically ill, the [place] Accu-Chek InformII metershould not be used for Glucose determinations.Draw a venous Glucose and send to the Main Lab for Analysis. RPR, [id number] 12:26:00 Test Item Value Reference Range Comments RPR (test code=RPR) Non-Reactive Non-Reactive POC Glucose, [id number] 12:05:00 Test Item Value Reference Range Comments POC Glucose (test 173 mg/dL 70-115 If you consider your patient code=POCGLUC) critically ill, the [place] Accu-Chek InformII metershould not be used for Glucose determinations.Draw a venous Glucose and send to the Main Lab for Analysis. POC Glucose, [id number] 07:57:00 Test Item Value Reference Range Comments POC Glucose (test 144 mg/dL 70-115 If you consider your patient code=POCGLUC) critically ill, the [place] Accu-Chek InformII metershould not be used for Glucose determinations.Draw a venous Glucose and send to the Main Lab for Analysis. POC Glucose, [id number] 06:19:00 Test Item Value Reference Range Comments [...] TSH (test code=TSH) 2.08 mIU/mL 0.270-4.200 Lipid [id number] 23:52:00 Test Item Value Reference Range Comments Cholesterol (test 171 mg/dL 0-200 code=CHOL) Triglycerides (test 171 mg/dL 9-200 code=TRIG) HDL (test code=HDL) 37 mg/dL 40-60 Chol/HDL (test 4.6 Ratio 0.0-5.0 code=CHOLPHDL) LDL, Calculated (test 100 0-130 (NOTE)RISK OF HEART code=LDLC) DISEASEPublished by [place] Heart AssociationAnalyte Optimal Boderline Increased RiskCHOL <200 200-239 >240TRIG <150 150-199 >200HDL Male: >60 <40HDL Female: >60 <50LDL <100 130-159 >160LDL NEAR OPTIMAL IS 100-129 VLDL (test code=VLDL) 34 mg/dL 5-40 LDL/HDL (test code=LDLPHDL) 3 POC Glucose, [id number] 20:03:00 Test Item Value Reference Range Comments POC Glucose (test 221 mg/dL 70-115 If you consider your patient code=POCGLUC) critically ill, the [place] Accu-Chek InformII metershould not be used for Glucose determinations.Draw a venous Glucose and send to the Main Lab for Analysis. POC Glucose, [id number] 16:47:00 Test Item Value Reference Range Comments POC Glucose (test 304 mg/dL 70-115 If you consider your patient code=POCGLUC) critically ill, the [place] Accu-Chek InformII metershould not be used for Glucose determinations.Draw a venous Glucose and send to the Main Lab for Analysis. POC Glucose, [id number] 15:20:00 Test Item Value Reference Range Comments POC Glucose (test 368 mg/dL 70-115 If you consider your patient code=POCGLUC) critically ill, the [place] Accu-Chek InformII metershould not be used for Glucose determinations.Draw a venous Glucose and send to the Main Lab for Analysis. [id number] 08:27:00 Test Item Value Reference Range Comments [...] Urine (test <0.01 g/dL 0.00-0.01 code=ETOHU) Urinalysis [id number] 07:59:00 Test Item Value Reference Range Comments Color (test code=COLOR) Yellow Yellow,Straw,Pl yellow Clarity (test code=CLAR) Clear Clear Specific [place] (test code=SPGR) 1.026 1.001-1.035 pH (test code=PH) [...] Bacteria (test code=BACT) Few /HPF POC Glucose, [id number] 07:23:00 Test Item Value Reference Range Comments POC Glucose (test 174 mg/dL 70-115 If you consider your patient code=POCGLUC) critically ill, the [place] Accu-Chek InformII metershould not be used for Glucose determinations.Draw a venous Glucose and send to the Main Lab for Analysis. [id number] 06:52:00 Test Item Value Reference Range Comments Acetone [Serum] (test code=ACETONE) Negative Negative Comprehensive Metabolic [id number] 06:19:00 Test Item Value Reference Range Comments [...] race is not provided, and the patient isAfrican-[place], multiply by 1.212. If sex is not [...] the National Kidney Foundation,http://nkdep.nih .gov CBC with [id number] 06:00:00 Test Item Value Reference Range Comments [...] Lymph Abs (test code=ALYMPH) 3.1 K/cumm 0.5-4.6 [place] Abs (test code=AMONO) 0.9 K/cumm 0.0-1.2 Eos Abs (test code=AEOS) 0.29 K/cumm 0.00-0.74 Baso Abs (test code=ABASO) 0.1 K/cumm 0.00-0.21 POC Glucose, [id number] 05:52:00 Test Item Value Reference Range Comments POC Glucose (test 342 mg/dL 70-115 If you consider your patient code=POCGLUC) critically ill, the [place] Accu-Chek InformII metershould not be used for Glucose determinations.Draw a venous Glucose and send to the Main Lab for Analysis.
[2019-02-08 03:28] LABS: Protime INR 1.12
[2019-02-08 03:30] LABS: Absolute Lymphocytes (CBC) 1.3 K/uL (0.7-4.9); Absolute Monocytes 1.2 K/uL (0.1-1.3); Absolute Neutrophil 15.3 K/uL (1.8-8.0); Basophils % 0.6 % (0-1.3); Eosinophils % 0.5 % (0-4.4); Hematocrit 36.6 % (39.6-49.0); Lymphocytes % 7.2 % (15.3-44.8); MPV 7.8 fL (7.6-11.3); Monocytes % 6.9 % (3.3-12.3); RBC Red Blood Cell Count 4.83 M/uL (4.33-5.43)
[2019-02-08] MEDS ORDERED: ACETAMINOPHEN 325 MG TABLET ONE (03:32)
[2019-02-08] MEDS ORDERED: FENTANYL CITR 100 MCG/2 ML ONE (03:33)
[2019-02-08] MEDS ORDERED: CEFEPIME 1 GM/100 ML BAG IV ONE (03:34)
[2019-02-08] MEDS ORDERED: NA CHLORIDE 0.9% 1,000 ML ONE ×2 (03:34→04:06)
[2019-02-08 03:43] LABS: ALT/SGPT 13 U/L (12-78); AST/SGOT 7 U/L (15-37); Albumin 2.4 g/dL (3.4-5.0); Alkaline Phosphatase 172 U/L (45-117); BUN Blood Urea Nitrogen 7 mg/dL (7-18); Bicarbonate 25 mmol/L (21-32); Bilirubin Direct 0.1 mg/dL (0-0.2); Bilirubin Total 0.5 mg/dL (0.2-1.0); Creatine Phosphokinase 50 U/L (39-308); Glucose Level 625 mg/dL (74-106); Lipase 70 U/L (73-393); Potassium 3.3 mmol/L (3.5-5.1); Protein, Total 7.5 g/dL (6.4-8.2); Sodium Level 124 mmol/L (136-145); Troponin (Emerg Dept Use Only) < 0.02 ng/mL (0.0-0.045)
[2019-02-08] MEDS ORDERED: INSULIN -REGULAR HUMAN 50 UNIT/0.5 ML ML ONE (04:08)
[2019-02-08 04:28] LABS: Urine Blood 1+ (NEG); Urine Glucose 2+ (NEG); Urine Protein 2+ (NEG)
[2019-02-08 04:48] LABS: Anisocytosis 1+; Blood Morphology Comment NOTED (NOT SEEN); Platelet Estimate ADEQ; Urine White Blood Cell Casts OK
[2019-02-08] MEDS ORDERED: ONDANSETRON 4 MG/2 ML VIAL IV PRN (04:55)
[2019-02-08 04:59] LABS: Urine Bacteria <20 /HPF (NONE SEEN); Urine Culture Reflex Order NOT NEEDED; Urine RBC <5 /HPF (NONE SEEN); Urine Yeast FEW (NONE SEEN)
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
[2019-02-08] MEDS ORDERED: PIPER/TAZO/NS 3.375gm 3.375 GM/100 ML BAG IVPB SCH ×3 (05:45→08:00)
[2019-02-08] MEDS: NA CHLORIDE 0.9% 500 ML IV ONE ×2 (06:00→08:19)
[2019-02-08] MEDS ORDERED: LINEZOLID 600 MG IVPB 600 MG/300 ML BAG IV SCH ×2 (06:00→09:00)
[2019-02-08] MEDS: INSULIN 70/30 100 UNITS/ML SQ SCH (08:15)
[2019-02-08] MEDS: LINEZOLID 600 MG IVPB 600 MG/300 ML BAG IV SCH ×2 (08:17→21:20)
[2019-02-08] MEDS: METOPROLOL TAR 25 MG TAB PO SCH ×2 (08:28→17:44)
[2019-02-08] MEDS: HYDROMORPHONE HCL 1 MG/ML INJ IV PRN ×4 (08:28→22:30)
--- NOTE | 2019-02-08 08:56 | RAD REPORT ---
EXAM DESCRIPTION: USExtremdonovan Venous Uni Ltd02/08/2019 3:53 am CLINICAL HISTORY: left leg pain and swelling. FINDINGS: Left common femoral, superficial femoral, popliteal and posterior tibial veins are compre ssible and demonstrate augmentation. Doppler demonstrates good flow. Two left inguinal lymph nodes are present. Largest measures proximally 2 centimeter short axis IMPRESSION: No evidence of deep venous thrombosis involving the left lower extremity. Inguinal left lymphadenopathy nonspecific but probably reactive in nature. Follow up ultrasound in se veral months is recommended to assess stability/resolution
[2019-02-08] MEDS: PIPER/TAZO/NS 3.375gm 3.375 GM/100 ML BAG IVPB SCH ×2 (09:00→17:03)
--- NOTE | 2019-02-08 09:23 | RAD REPORT ---
EXAM DESCRIPTION: RAD - Foot Left 3 View - 02/08/2019 3:56 am CLINICAL HISTORY: Left Foot pain FINDINGS: No acute fracture or dislocation is seen. Ulceration within the soft tissues adjacent to the distal fifth metatarsal. Cortical regularity invol ving the adjacent bone suspicious for osteomyelitis.
[2019-02-08] MEDS ORDERED: GLUCAGON 1 MG/VIAL IM PRN (09:26)
[2019-02-08] MEDS ORDERED: D50W 25 GM/50 ML SYRINGE IV PRN (09:26)
--- NOTE | 2019-02-08 09:53 | P.HP ---
Certification for Inpatient Patient admitted to: Inpatient With expected LOS: >2 Midnights Patient will require the following post-hospital care: None Practitioner: I am a practitioner with admitting privileges, knowledge of patient current condition, hospital course, and medical plan of care. Services: Services provided to patient in accordance with Admission requirements found in Title 42 Section 412.3 of the Code of Federal Regulations Patient History Date of Service: 02/08/19 Reason for admission: Callus/diabetic foot ulcer of the left foot History of Present Illness: Patient is a 33-year-old gentleman who was well known to me from prior admissions in the past for foot infection on the right foot. Patient has diabetic neuropathy and has diminished sensations of the lower extremity. 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 I have not seen him in quite a while and patient was brought into the emergency room because he had noted that his left foot was significantly swollen. He looked on the side and noted that he had some drainage. He decided to come into the emergency room for further evaluation. In the ER he had serial troponin which is negative at this time. Otherwise, no other workup is necessary. Echocardiogram is pending. Outpatient stress test as well Allergies clindamycin Adverse Reaction (Verified 02/08/19 07:26) Nausea/Vomiting meperidine [From Demerol] Adverse Reaction (Verified 02/08/19 07:26) Nausea/Vomiting morphine Adverse Reaction (Verified 02/08/19 07:26) Nausea/Vomiting vancomycin Adverse Reaction (Verified 02/08/19 07:26) Nausea/Vomiting clindamycin HCl Allergy (Uncoded 12/02/17 00:54) Unknown VANCOMYCIN AND DERIV Allergy (Uncoded 12/02/17 00:54) Unknown Home Medications: Amantadine [Symmetrel*] 1 tab PO DAILY 02/08/19 Diclofenac Na [Voltaren D.r*] 1 tab PO PRN PRN 02/08/19 Duloxetine [Cymbalta *] 30 mg PO DAILY 6PM 02/08/19 Duloxetine [Cymbalta Dalayed Release Pellets] 60 mg PO [id number] 02/08/19 Gabapentin [Neurontin] 1 tab PO TID 02/08/19 Insulin 70/30 NPH/Reg Human [Novolin 70/30*] 30 units SQ DAILY 6PM 02/08/19 Insulin 70/30 NPH/Reg Human [Novolin 70/30*] 50 units SQ DAILY 02/08/19 Lisinopril 1 tab PO DAILY 02/08/19 Mirtazapine [Remeron] 1 tab PO BEDTIME 02/08/19 - Past Medical/Surgical History Diabetic: Yes -: Bipolar disorder -: Diabetes mellitus type 2 -: Schizoaffective disorder -: History of osteomyelitis leading to right partial foot amputation -: Tobacco abuse -: Marijuana use -: Diabetic neuropathy -: Right foot amputation -: Circumcision Psychosocial/ Personal History: The patient is single. He has no children. The patient is disabled. - Family History Mother Medical History: Diabetes Father Medical History: Diabetes Brother Medical History: Diabetes - Social History Alcohol use: No CD- Drugs: Yes Caffeine use: Yes Review of Systems 10-point ROS is otherwise unremarkable Physical Examination - Vital Signs Temperature: 97.0 F Blood Pressure: 118/78 Pulse: 95 Respirations: 16 Pulse Ox (%): 98 - Physical Exam General: Alert, In no apparent distress, Oriented x3 HEENT: Atraumatic, PERRLA, Mucous membr. moist/pink, EOMI, Sclerae nonicteric Neck: Supple, 2+ carotid pulse no bruit, No LAD, Without JVD or thyroid abnormality Respiratory: Clear to auscultation bilaterally, Normal air movement Cardiovascular: Regular rate/rhythm, Normal S1 S2, No murmurs Gastrointestinal: Normal bowel sounds, Soft and benign, Non-distended, No tenderness Musculoskeletal: No tenderness Integumentary: No rashes Neurological: Normal gait, Normal speech, Normal tone, Normal affect, Abnormal strength (Right-sided) Lymphatics: No axilla or inguinal lymphadenopathy - Studies Laboratory Data (last 24 hrs) 02/08/19 03:00: Glucose 641 H* 02/08/19 03:00: PT 13.2 H, INR 1.12 02/08/19 03:00: WBC 18.0 H, Hgb 11.5 L, Hct 36.6 L, Plt Count 334 02/08/19 03:00: Sodium 124 L, Potassium 3.3 L, BUN 7, Creatinine 1.63 H, Glucose 625 H*, Total Bilirubin 0.5, AST 7 L, ALT 13, Alkaline Phosphatase 172 H , Lipase 70 L Assessment & Plan - Problems (Diagnosis) (1) Ulcer of left foot due to type 2 diabetes mellitus Current Visit: No Status: Acute (2) Anemia Onset Date: 09/27/16 Current Visit: No Status: Chronic Qualifiers: (3) Bipolar 1 disorder Onset Date: 09/27/16 Current Visit: No Status: Chronic (4) Diabetes mellitus Onset Date: 09/27/16 Current Visit: No Status: Chronic Qualifiers: (5) Nicotine dependence Onset Date: 12/02/17 Current Visit: No Status: Chronic Qualifiers: (6) Schizoaffective disorder Onset Date: 09/27/16 Current Visit: No Status: Chronic Qualifiers: (7) MRSA (methicillin resistant staph aureus) culture positive Current Visit: No Status: Resolved - Plan 1. Continue with IV antibiotic 2. Continue with local wound care 3. Wound care consultation/surgical consultation 4. Gentle IV hydration 5. Monitor CBC 6. Strict blood sugar monitoring 7. Pain control 8. MRI of the foot as well as arterial Dopplers of the left lower extremity 9.GI and DVT prophylaxis Discharge Plan: Home Plan to discharge in: Greater than 2 days - Advance Directives Does patient have a Living Will: No Does patient have a Durable POA for Healthcare: No - Code Status/Comfort Care Code Status Assessed: Yes Code Status: Full Code Critical Care: No Time Spent Managing PTS Care (In Minutes): 45
--- NOTE | 2019-02-08 11:06 | RAD REPORT ---
EXAM DESCRIPTION: MRIFoot Left Wo Cont02/08/2019 10:15 am CLINICAL HISTORY: Left foot pain and swelling COMPARISON: 2017 TECHNIQUE: Axial, sagittal and coronal magnetic resonance imaging of the left foot was obtained. FINDINGS: Soft tissue ulceration lateral to the fifth metatarsal. Ill-defined fluid in this region. 27 millimeter fluid collection within the medial subcutaneous tissues of the forefoot Partial amputation fifth metatarsal Abnormal signal involves the second, third, fourth and fifth metatarsals. Abnormal signal also involves all of the medial cuneiform. Small areas of abnormal signal involving t he intermediate and lateral cuneiforms. IMPRESSION: Osteomyelitis involving the second through fifth metatarsals Osteomyelitis also suspected within the cuneiforms
[2019-02-08] MEDS: NA CHLORIDE 0.9% 1,000 ML IV SCH ×2 (11:48→22:31)
--- NOTE | 2019-02-08 11:49 | RAD REPORT ---
EXAM DESCRIPTION: US - Lower Extremity Artery Uni Ltd - 02/08/2019 11:13 am CLINICAL HISTORY: Left foot pain and swelling. Open wound COMPARISON: None FINDINGS: left ankle-brachial index 1.2. Left toe index 1 Waveforms of the left common femoral, left superficial femoral, left posterior tibial arteries are tr iphasic. Monophasic waveforms left dorsalis pedis and left posterior tibial arteries IMPRESSION: Mild to moderate disease involving the distal arteries of the lower extremity. Unremarkable exam of the proximal and mid arteries left lower extremity
[2019-02-08] MEDS: INSULIN -REGULAR HUMAN 50 UNIT/0.5 ML ML SQ SCH ×3 (12:45→21:17)
[2019-02-08 15:45] VITALS: BMI 34.3
--- NOTE | 2019-02-08 18:50 | CON ---
History Of Present Illness: This is a 33-year-old male coming in with left foot osteomyelitis and di abetic foot ulcer. The patient just recently got a new prothesis, after which he claims that was put ting unusual pressure on his left foot and developed ulceration. The patient has no sensation in his feet. Denies any headache, nausea, vomiting, chest pain, abdominal pain, constipation, or diarrhea. The patient also has significant history of right BKA secondary to the similar problems of nonheali ng diabetic foot ulcer. Denies any other medical problems at this time. Past Medical History: Diabetes mellitus since age 21, right BKA, PTSD, depression, peripheral neurop athy, diabetic foot ulcers. Social History: Nondrinker. Family History: Noncontributory. Medications: Zosyn and Zyvox. See MARs for other medication. Allergies: CLINDAMYCIN, MEPERIDINE, MORPHINE, VANCOMYCIN. Review of Systems: A 10-point review was performed. Physical Examination: General: This is a 33-year-old male, lying in bed, not in any acute cardiopulmonary distress. HEENT: Within normal limits. Neck: Supple. Lungs: Clear to auscultation. Heart: S1, S2. Regular. Abdomen: Soft, nontender. Bowel sounds present. Extremities: Left leg with erythematous changes involving the foot and ankle region. Left foot ulcer ation also noted especially under the 5th metatarsal region with slough and surrounding callus format ion. Some denuded skin was also noted on the top of the foot, especially above the 5th metatarsal reg ion. Diagnostic Data: MRI shows 2nd to 5th metatarsal bones are involved with infection and osteomyelitis . Laboratory Data: Shows 18,000 WBC, hemoglobin 11.5, platelets are 334. Chemistry shows sodium 124, potassium 3.3, chloride 88, bicarb 25, BUN 7, creatinine 1.6, glucose is 625, GFR is 49. Procalciton in is 0.5. Assessment And Plan: This is a 33-year-old male with poorly controlled diabetes, coming in with diab etic neuropathy and diabetic foot ulcer and cellulitis of left foot. MRI showing osteomyelitis invol ving from 2nd to 5th metatarsal region. We will recommend 6 weeks of IV antibiotic. Consider transf erring the patient to long-term acute care with [facility] in [place]. We will follow the p atient as needed. NF/MODL Voice ID: [id number] Report ID: [id number]
[2019-02-08] MEDS ORDERED: INSULIN 70/30 100 UNITS/ML SQ SCH (21:00)
[2019-02-08] MEDS ORDERED: GABAPENTIN 400 MG CAP PO SCH (21:00)
[2019-02-08] MEDS ORDERED: MIRTAZAPINE 15 MG TAB PO SCH (21:00)
[2019-02-08] MEDS ORDERED: HOME MED 1 EA UNK (Gabapentin [Gabapentin] 800 MG) PO SCH (21:00)
[2019-02-08] MEDS: GABAPENTIN 400 MG CAP PO SCH (21:00)
[2019-02-08] MEDS ORDERED: ACETAMINOPHEN 500 MG TAB PO PRN (21:02)
[2019-02-08] MEDS ORDERED: MELATONIN 3 MG TABLET PO PRN (21:02)
[2019-02-09] MEDS: PIPER/TAZO/NS 3.375gm 3.375 GM/100 ML BAG IVPB SCH ×2 (00:01→09:49)
[2019-02-09 04:23] LABS: Absolute Lymphocytes (CBC) 1.8 K/uL (0.7-4.9); Absolute Neutrophil 8.5 K/uL (1.8-8.0); Basophils % 0.7 % (0-1.3); Eosinophils % 2.8 % (0-4.4); Hematocrit 29.1 % (39.6-49.0); Lymphocytes % 15.1 % (15.3-44.8); MPV 7.5 fL (7.6-11.3); Monocytes % 8.8 % (3.3-12.3); RBC Red Blood Cell Count 3.97 M/uL (4.33-5.43)
[2019-02-09 04:44] LABS: Protime INR 1.14
[2019-02-09 04:46] LABS: Potassium 3.3 mmol/L (3.5-5.1)
[2019-02-09] MEDS: METOPROLOL TAR 25 MG TAB PO SCH (05:32)
[2019-02-09] MEDS: HYDROMORPHONE HCL 1 MG/ML INJ IV PRN ×2 (05:33→10:01)
[2019-02-09] MEDS ORDERED: DULOXETINE 20 MG CAP PO SCH ×2 (06:00→18:00)
[2019-02-09] MEDS: INSULIN -REGULAR HUMAN 50 UNIT/0.5 ML ML SQ SCH ×3 (07:30→16:30)
--- NOTE | 2019-02-09 08:00 | EKG ---
Test Date: 2019-02-08 Test Time: 03:37:20 Sales And Service Engineer: AVERY MEASUREMENT RESULTS: Intervals: Rate: 122 [place]: 134 QRSD: 88 QT: 320 QTc: 456 [place]: P: 47 AZ: 134 QRS: 50 T: 43 INTERPRETIVE STATEMENTS: Sinus tachycardia Otherwise normal ECG Compared to ECG 10/14/2018 03:07:36 No significant changes Electronically Signed On 02-09-19 07:57:26 CDT by Emory Olivarez
[2019-02-09] MEDS: GABAPENTIN 400 MG CAP PO SCH ×2 (09:00→12:43)
[2019-02-09] MEDS: INSULIN 70/30 100 UNITS/ML SQ SCH (09:00)
[2019-02-09] MEDS: LINEZOLID 600 MG IVPB 600 MG/300 ML BAG IV SCH (09:00)
[2019-02-09] MEDS ORDERED: INSULIN 70/30 100 UNITS/ML SQ SCH ×2 (09:00→18:00)
[2019-02-09] MEDS ORDERED: LISINOPRIL 10 MG TAB PO SCH (09:00)
[2019-02-09] MEDS ORDERED: VANCOMYCIN 1.75 GM in NA CHLORIDE 0.9% 500 ML IVPB SCH (10:30)
--- NOTE | 2019-02-09 10:43 | RAD REPORT ---
EXAM DESCRIPTION: CT - Lower Extremity W/ Cont - 02/08/2019 6:13 am CLINICAL HISTORY: 33 years old and is Male; swelling TECHNIQUE: Axial computed tomography images of the left lower extremity with intravenous contrast. Sagittal and coronal reformatted images were created and reviewed. This CT exam was performed usin g one or more of the following dose reduction techniques: automated exposure control, adjustment of the mA and/or kV according to patient size, and/or use of iterative reconstruction technique. COMPARISON: No relevant prior studies available. FINDINGS: Limitations: None. Bones/joints: Periosteal reaction noted in the distal aspect of the metatarsals with chronic ibis earing resorption of the distal fifth metatarsal. Chronic appearing cystic changes noted in the proxi mal tarsal row. No acute fracture. No dislocation. Soft tissues: Diffuse edematous changes within the lower extremity soft tissues present. Indurat ion appears most notable lateral foot and in particular over the distal fifth metatarsal. Edematous c hanges appear slightly more prominent tracking toward the head of the fifth metatarsal. Skin ulcerati on identified lateral foot. No soft tissue gas collection. No radiopaque foreign body. Lymph nodes: Inflammatory left inguinal lymph nodes present the largest measuring 2 cm short axi s dimension. IMPRESSION: 1. Acute osteomyelitis of the distal aspect of the second through fifth metatarsals . Component of chronic osteomyelitis likely involves the distal fifth metatarsal. 2. Diffuse cellulitis of the left lower extremity with most notable induration lateral foot and in particular around the distal fifth metatarsal. No definite drainable collection noted. 3. Left inguinal adenopathy. Electronically signed by: Ammy Raya MD 02/08/2019 6:23 AM CDT Due to temporary technical issues with the PACS/Fluency reporting system, reports are being signed by the in house radiologist as a courtesy to ensure prompt reporting. The interpreting radiologist is f juan antonioly responsible for the content of the report.
[2019-02-09 10:59] VITALS: O2SAT 95
[2019-02-09] MEDS: NA CHLORIDE 0.9% 1,000 ML IV SCH (11:36)
--- NOTE | 2019-02-09 13:12 | PN ---
Date of Progress Note: 02/09/2019 Subjective: Patient seen and examined. Chart reviewed and case discussed with RN. Patient states he is still having some discomfort and nausea; however, no significant pain. Patient has very limited sensation on his foot. Wound continues to drain. Patient awaiting evaluation by Dr. Hamlin the morning. Medications: List reviewed. Physical Examination: Vital Signs: Temperature 97.7, heart rate 86, blood pressure 109/74, respirations 20, O2 of 95% on room air. General: Awake, alert, oriented x3, some mild distress, ill-appearing male, obese. BMI 34. CV: S1, S2. Regular rate and rhythm. Peripheral pulses present. Respiratory: Moving air well bilaterally. No wheezing or stridor. Gastrointestinal: Abdomen is soft, nontender, nondistended. Positive bowel sounds. Extremities: Right BKA with prosthesis in place. Skin: Left foot fifth toe amputation. The patient has large ulcer on the fifth metatarsal plantar aspect as well as ulceration of the lateral aspect of the foot with bloody serosanguineous drainage. Somewhat foul odor. Laboratory Data: Sodium 138, potassium 3.3, chloride 105, CO2 of 27, BUN 10, creatinine 1.14, glucose 89. Hemoglobin A1c is 13.2%. Calcium 8.1. Procalcitonin 0.44. UA shows budding yeast. WBC 11.7, , platelets 295, neutrophils 72%. Blood cultures, no growth to date. Wound cultures growing group B strep. Assessment And Plan: This 33-year-old male with: 1. Osteomyelitis of the left second through fifth metatarsal. The patient currently on IV antibiotics. Appreciate Dr. Cruz's input. The patient will need 6 weeks of IV antibiotics. Dr. Hamlin has been consulted, likely will need surgical debridement. Imaging studies reviewed. 2. Cellulitis of the left lower extremity including the foot. We will continue with IV antibiotics. Blood cultures are negative to date. 3. Uncontrolled diabetes mellitus type 2, insulin requiring. Hemoglobin A1c is 13%. We will switch to long-acting insulin instead of 70/30 along with sliding scale. Monitor blood glucose levels. 4. Bipolar 1 disorder. 5. Anemia, microcytic, hypochromic, likely anemia of iron deficiency and chronic disease. We will monitor H and H. No need for transfusion at this time. 6. Nicotine dependence with cigarette smoking, counseled. 7. Schizoaffective disorder. 8. Gastrointestinal and No DVT prophylaxis for possible surgical intervention. Plan: We will continue pain medications. Follow up with Dr. Hamlin's recommendation, would anticipate the patient will need surgical debridement. We will order PICC line and consult Social Work for starting to look into LTAC placement for long-term IV antibiotics and wound care. JUANITO Voice ID: [id number] Report ID: [id number] JAYJAY
[2019-02-09] MEDS ORDERED: TRAMADOL HCL 50 MG TAB PO ONE (13:32)
--- NOTE | 2019-02-09 13:39 | P.CNS ---
Date of Consult: 02/09/19 Reason for Consult: cellulitis left foot Chief Complaint: Callus/diabetic foot ulcer of the left foot Allergies clindamycin Adverse Reaction (Verified 02/08/19 07:26) Nausea/Vomiting meperidine [From Demerol] Adverse Reaction (Verified 02/08/19 07:26) Nausea/Vomiting morphine Adverse Reaction (Verified 02/08/19 07:26) Nausea/Vomiting vancomycin Adverse Reaction (Verified 02/08/19 07:26) Nausea/Vomiting clindamycin HCl Allergy (Uncoded 12/02/17 00:54) Unknown VANCOMYCIN AND DERIV Allergy (Uncoded 12/02/17 00:54) Unknown Home Medications: Amantadine [Symmetrel*] 1 tab PO DAILY 02/08/19 Diclofenac Na [Voltaren D.r*] 1 tab PO PRN PRN 02/08/19 Duloxetine [Cymbalta *] 30 mg PO DAILY 6PM 02/08/19 Duloxetine [Cymbalta Dalayed Release Pellets] 60 mg PO [id number] 02/08/19 Gabapentin [Neurontin] 1 tab PO TID 02/08/19 Insulin 70/30 NPH/Reg Human [Novolin 70/30*] 30 units SQ DAILY 6PM 02/08/19 Insulin 70/30 NPH/Reg Human [Novolin 70/30*] 50 units SQ DAILY 02/08/19 Lisinopril 1 tab PO DAILY 02/08/19 Mirtazapine [Remeron] 1 tab PO BEDTIME 02/08/19 - Past Medical/Surgical History Diabetic: Yes -: Bipolar disorder -: Diabetes mellitus type 2 -: Schizoaffective disorder -: History of osteomyelitis leading to right partial foot amputation -: Tobacco abuse -: Marijuana use -: Diabetic neuropathy -: Right foot amputation -: Circumcision Psychosocial/ Personal History: The patient is single. He has no children. The patient is disabled. - Family History Mother Medical History: Diabetes Father Medical History: Diabetes Brother Medical History: Diabetes - Social History Smoking Status: Current every day smoker Alcohol use: No CD- Drugs: Yes Caffeine use: Yes Place of Residence: Home Review of Systems 10-point ROS is otherwise unremarkable Physical Examination Temp Pulse Resp BP Pulse Ox 98.0 F 96 H 20 118/84 96 02/09/19 12:00 02/09/19 12:43 02/09/19 12:00 02/09/19 12:43 02/09/19 12:00 General: Alert, In no apparent distress, Oriented x3 Cardiovascular: Edema, Abnormal pulses Capillary refill: <2 Seconds Musculoskeletal: No clubbing, No swelling, No contractures, No erythema, No tenderness, No warmth Integumentary: Diabetic ulcer (ulceration with hyperkeratosis plantar left 5th mpj with granulation, no purulence, mild slough tracking dorsally to wound with large granulation and serosanguinous drainage.) Neurological: Abnormal sensation Imagings Data: MRI positive for osteomyelitis left second through fifth metatarsal - Problems (1) Ulcer of left foot due to type 2 diabetes mellitus Current Visit: No Status: Acute Plan: I agree with Dr. Cruz with the need for rodent exterminator iv antibiotics and a need for LTAC due to patient having a previous right BKA and serious concern for loss of limb left foot. Wound to be packed bid with saline moistened gauze Physician Review: Patient Assessed, Agree with Above Assessment and Plan Critical Care: No Time Spent Managing Pts care (In Minutes): 30
[2019-02-09 16:19] VITALS: BP 120/85; TEMP 98.6
--- NOTE | 2019-02-10 02:28 | DS ---
Date of Discharge: 02/09/2019 Consultants: Dr. Cruz with Infectious Disease; Dr. Hamlin with Podiatry. Discharge Diagnoses: 1. Ulcer of left foot due to diabetes mellitus, type 2. 2. Anemia. 3. Bipolar 1 disorder. 4. Diabetes mellitus. 5. Nicotine dependence. 6. Schizo-affective disorder. 7. Group B strep positive culture. 8. Cellulitis. Hospital Course: The patient is a 33-year-old male with past medical history of diabetes, neuropathy, who has had amputation of the right leg, comes in due to diabetic foot ulcer on the left foot. The patient had workup done, which revealed elevated white blood cell count. Procalcitonin was negative. Lactate was normal. He was not septic. He did have some low potassium, which was replaced. His hemoglobin A1c was elevated at 13.2%. Cultures were obtained, which grew out group B strep from the wound cultures. Blood cultures were negative to date. The patient was started on broad-spectrum IV antibiotics and IV fluids. Initially reported allergy to vancomycin, which was headache, which is more possibly a side effect. The patient was started on Zyvox. However, the patient was then given trial of vancomycin; however, he retirement through had again developed headache, therefore had to be stopped. He also complains of diarrhea, which is a known side effect, not an allergy. The patient was seen by Dr. Hamlin with Podiatry. He did not feel that the patient required debridement at this time. Imaging studies confirmed osteomyelitis from the 2nd to 5th toes. Dr. Cruz with Infectious Disease was also consulted. He recommended 6 weeks of IV antibiotics. The patient was then referred over to [facility] at [place] for wound care and long-term IV antibiotics. The patient has very poor control of his diabetes with hemoglobin A1c of 13%. He needs strict diabetic glucose control and monitoring of his dietary intake to successfully heal and treat this osteomyelitis. The patient was then accepted by [place] and was transferred to [facility] in a stable condition. Medications: As per medication reconciliation list. Dr. Cruz recommended doxycycline instead of vancomycin due to the patient's allergy. The patient will also finish off course of Zosyn for a total of 6 weeks. Followup: Follow up with primary care physician in 1 week. Follow up with Dr. Hamlin, Podiatry, in 2 weeks. Follow up with Dr. Cruz, ID, in 2 weeks. Return to ER for worsening condition. The patient have weekly CBC, CRP, ESR, and CMP. The patient have IV antibiotic dose adjusted renally. Diet: Diabetic. Activity: As per Dr. Hamlin's recommendation. For now keep off the wound to promote healing. For physical exam findings, please see progress note dictated on the day of discharge. Total time spent discharging the patient was 39 minutes. JUANITO Voice ID: [id number] Report ID: [id number] MTDD
== END 2019-02-09 17:30 | DRG 540 ==
LOC: ER 02:23 → ERHOLD 04:55 → 4TH 06:22
PROVIDERS: ADMIT Hospitalist; ATTEND Hospitalist
DX: M86.9 Osteomyelitis, unspecified (principal); L03.116 Cellulitis of left lower limb; E11.621 Type 2 diabetes mellitus with foot ulcer; F31.9 Bipolar disorder, unspecified; F25.0 Schizoaffective disorder, bipolar type; E11.69 Type 2 diabetes mellitus with other specified complication; B95.1 Streptococcus, group B, as the cause of diseases classified elsewhere; B95.62 Methicillin resistant Staphylococcus aureus infection as the cause of diseases classified elsewhere; E11.65 Type 2 diabetes mellitus with hyperglycemia; D50.9 Iron deficiency anemia, unspecified; Z89.511 Acquired absence of right leg below knee; F17.210 Nicotine dependence, cigarettes, uncomplicated; E11.40 Type 2 diabetes mellitus with diabetic neuropathy, unspecified
CPT/HCPCS: 36415; 73701; 80048; 80076; 81003; 81015; 82550; 82947; 82962; 83036; 83605; 83690; 84145; 84484; 85025; 85610; 85730; 87040; 87070; 87077; 87186; 87205; 93005; 93926; 93971; 96361; 96365; 96372; 96375; 99285; J0692; J1170; J2020; J2543; J3010; J7030; Q9967

== ENCOUNTER 2019-04-07 11:04 | Emergency (ER) | payer OTHER ==
--- OUTSIDE RECORDS SUMMARY | 2019-04-07 11:08 | XMS REPORT | Clinical Summary ---
:1985 Author Organization [facility] Address [address] [place] [address] Care Team Providers Name Role Phone Asked, [...] Bhavik Severe dehydration; Hypoalbuminemia 11/12/2018 Travel after 04/06/2018 Immunizations Name Dates Previously Given Next Due [...] Taken Blood Pressure 120/82 11/18/2018 4:19 PM DEVELOPMENT GEOLOGIST Pulse 134 11/18/2018 4:19 PM DEVELOPMENT GEOLOGIST Temperature 36 C (96.8 F) 11/18/2018 4:19 PM DEVELOPMENT GEOLOGIST Respiratory Rate 20 11/18/2018 4:19 PM DEVELOPMENT GEOLOGIST Oxygen Saturation 97% 11/18/2018 4:19 PM DEVELOPMENT GEOLOGIST Inhaled Oxygen Concentration - - Weight 95.7 kg (211 lb) 11/13/2018 7:03 AM DEVELOPMENT GEOLOGIST Height 175.3 cm (5' 9") 11/12/2018 7:56 PM DEVELOPMENT GEOLOGIST Body Mass Index 31.16 11/12/2018 7:56 PM DEVELOPMENT GEOLOGIST Plan of Treatment Health Maintenance Due Date Last Done Comments DIABETIC RETINAL EYE EXAM 1985 DIABETIC FOOT EXAM 1994 URINE MICROALBUMIN 1994 INFLUENZA VACCINE 04/15/2019 11/13/2018 Procedures Procedure Name Priority Date/Time Associated Comments Diagnosis POC GLUCOSE Routine 11/18/2018 4:35 Results for this PM DEVELOPMENT GEOLOGIST procedure are in the results section. POC GLUCOSE Routine 11/18/2018 12:19 Results for this PM DEVELOPMENT GEOLOGIST procedure are in the results section. POC GLUCOSE Routine 11/18/2018 8:30 Results for this AM DEVELOPMENT GEOLOGIST procedure are in the results section. POC GLUCOSE Routine 11/17/2018 9:02 Results for this PM DEVELOPMENT GEOLOGIST procedure are in the results section. POC GLUCOSE Routine 11/17/2018 5:54 Results for this PM DEVELOPMENT GEOLOGIST procedure are in the results section. POC GLUCOSE Routine 11/17/2018 12:26 Results for this PM DEVELOPMENT GEOLOGIST procedure are in the results section. POC GLUCOSE Routine 11/17/2018 7:45 Results for this AM DEVELOPMENT GEOLOGIST procedure are in the results section. POC GLUCOSE Routine 11/17/2018 1:54 Results for this AM DEVELOPMENT GEOLOGIST procedure are in the results section. POC GLUCOSE Routine 11/16/2018 8:55 Results for this PM DEVELOPMENT GEOLOGIST procedure are in the results section. CLOSTRIDIUM DIFFICILE Routine 11/16/2018 8:00 Results for this TOXIN PM DEVELOPMENT GEOLOGIST procedure are in the results section. POC GLUCOSE Routine 11/16/2018 5:32 Results for this PM DEVELOPMENT GEOLOGIST procedure are in the results section. POC GLUCOSE Routine 11/16/2018 12:05 Results for this PM DEVELOPMENT GEOLOGIST procedure are in the results section. POC GLUCOSE Routine 11/16/2018 8:32 Results for this AM DEVELOPMENT GEOLOGIST procedure are in the results section. POC GLUCOSE Routine 11/15/2018 9:02 Results for this PM DEVELOPMENT GEOLOGIST procedure are in the results section. POC GLUCOSE Routine 11/15/2018 4:44 Results for this PM DEVELOPMENT GEOLOGIST procedure are in the results section. POC GLUCOSE Routine 11/15/2018 12:07 Results for this PM DEVELOPMENT GEOLOGIST procedure are in the results section. HEMOGLOBIN A1C Routine 11/15/2018 10:03 Results for this AM DEVELOPMENT GEOLOGIST procedure are in the results section. POC GLUCOSE Routine 11/15/2018 10:01 Results for this AM DEVELOPMENT GEOLOGIST procedure are in the results section. POC GLUCOSE Routine 11/15/2018 7:58 Results for this AM DEVELOPMENT GEOLOGIST procedure are in the results section. ESTIMATED GFR Routine 11/15/2018 5:10 Results for this AM DEVELOPMENT GEOLOGIST procedure are in the results section. BASIC METABOLIC PANEL Routine 11/15/2018 5:10 Results for this AM DEVELOPMENT GEOLOGIST procedure are in the results section. HC COMPLETE BLD COUNT Routine 11/15/2018 5:10 Results for this W/AUTO DIFF AM DEVELOPMENT GEOLOGIST procedure are in the results section. POC GLUCOSE Routine 11/15/2018 12:29 Results for this AM DEVELOPMENT GEOLOGIST procedure are in the results section. POC GLUCOSE Routine 11/14/2018 9:38 Results for this PM DEVELOPMENT GEOLOGIST procedure are in the results section. POC GLUCOSE Routine 11/14/2018 6:32 Results for this PM DEVELOPMENT GEOLOGIST procedure are in the results section. POC GLUCOSE Routine 11/14/2018 3:53 Results for this PM DEVELOPMENT GEOLOGIST procedure are in the results section. POC GLUCOSE Routine 11/14/2018 11:57 Results for this AM DEVELOPMENT GEOLOGIST procedure are in the results section. POC GLUCOSE Routine 11/14/2018 7:14 Results for this AM DEVELOPMENT GEOLOGIST procedure are in the results section. POC GLUCOSE Routine 11/14/2018 6:35 Results for this AM DEVELOPMENT GEOLOGIST procedure are in the results section. HC COMPLETE BLD COUNT Routine 11/14/2018 4:45 Results for this W/AUTO DIFF AM DEVELOPMENT GEOLOGIST procedure are in the results section. ESTIMATED GFR Routine 11/14/2018 4:00 Results for this AM DEVELOPMENT GEOLOGIST procedure are in the results section. BASIC METABOLIC PANEL Routine 11/14/2018 4:00 Results for this AM DEVELOPMENT GEOLOGIST procedure are in the results section. POC GLUCOSE Routine 11/14/2018 3:05 Results for this AM DEVELOPMENT GEOLOGIST procedure are in the results section. POC GLUCOSE Routine 11/13/2018 8:54 Results for this PM DEVELOPMENT GEOLOGIST procedure are in the results section. POC GLUCOSE Routine 11/13/2018 5:31 Results for this PM DEVELOPMENT GEOLOGIST procedure are in the results section. POC GLUCOSE Routine 11/13/2018 12:13 Results for this PM DEVELOPMENT GEOLOGIST procedure are in the results section. ECHOCARDIOGRAM 2D Routine 11/13/2018 11:12 Results for this COMPLETE W MMODE AM DEVELOPMENT GEOLOGIST procedure are in SPECTRAL COLOR DOPPLER the results (90713) section. POC GLUCOSE Routine 11/13/2018 7:17 Results for this AM DEVELOPMENT GEOLOGIST procedure are in the results section. ESTIMATED GFR Routine 11/13/2018 6:06 Results for this AM DEVELOPMENT GEOLOGIST procedure are in the results section. BASIC METABOLIC PANEL Routine 11/13/2018 6:06 Results for this AM DEVELOPMENT GEOLOGIST procedure are in the results section. HC COMPLETE BLD COUNT Routine 11/13/2018 6:06 Results for this W/AUTO DIFF AM DEVELOPMENT GEOLOGIST procedure are in the results section. POC GLUCOSE Routine 11/12/2018 10:19 Results for this PM DEVELOPMENT GEOLOGIST procedure are in the results section. POC GLUCOSE Routine 11/12/2018 6:40 Results for this PM DEVELOPMENT GEOLOGIST procedure are in the results section. VITAMIN B12 LEVEL Routine 11/12/2018 12:40 Results for this PM DEVELOPMENT GEOLOGIST procedure are in the results section. TOTAL IRON BINDING Routine 11/12/2018 12:40 Results for this CAPACITY PM DEVELOPMENT GEOLOGIST procedure are in the results section. FOLATE LEVEL Routine 11/12/2018 12:40 Results for this PM DEVELOPMENT GEOLOGIST procedure are in the results section. FERRITIN LEVEL Routine 11/12/2018 12:40 Results for this PM DEVELOPMENT GEOLOGIST procedure are in the results section. BLOOD CULTURE, AEROBIC Routine 11/12/2018 7:40 Results for this & ANAEROBIC AM DEVELOPMENT GEOLOGIST procedure are in the results section. CREATINE KINASE, TOTAL Timed 11/12/2018 7:38 Results for this (CPK) AM DEVELOPMENT GEOLOGIST procedure are in the results section. RESPIRATORY PATHOGEN Routine 11/12/2018 7:38 Results for this PANEL AM DEVELOPMENT GEOLOGIST procedure are in the results section. BLOOD CULTURE, AEROBIC Routine 11/12/2018 7:38 Results for this & ANAEROBIC AM DEVELOPMENT GEOLOGIST procedure are in the results section. ECG 12-LEAD STAT 11/12/2018 7:37 AM DEVELOPMENT GEOLOGIST Procedure Note - Kody Steiner MD - 11/12/2018 4:14 AM DEVELOPMENT GEOLOGIST Emergency Department Provider Note Location: [facility] MAIN ED Patient ID: Raymundo Mcdowell is [...] pressure medication today. 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 Timing: Constant Progression: Worsening Chronicity: New Context: [...] Surgical History Dental Past Family History Reviewed; ca Past Social History No drugs tob etoh; [...] ED Course as of Nov 12 735 [facility] Nov 12, 2018 0535 Discussed case [...] ED Physician in the absence of a parquet floor layer: yes Previous ECG: Previous ECG: Compared to [...] for further evaluation, case discussed with doctor outbound sales professional and pt accepted for admission. Labs ordered, reviewed, and interpreted by me. Pulse ox reviewed by me and interpreted as normal. construction worker reviewed by me and interpreted as normal. 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 Prior records sought & summarized confirming history of: No past medical history on file. At least 1 MD bedside reassessment occurred to update patient, determine response to treatment & recheck the patent s wellbeing. INTERPRETATIONS (additional)/Amount and/or Complexity of Data Reviewed: I reviewed the Pulse Oximetry and it is wnl by my independent interpretation. I reviewed the screw machine repairer on the patient (nl rate; q wave; [...] flush 10 mL, 10 mL, intravenous, Q12H [facility], Diamond Allen MD sodium chloride 0.9% flush 10 mL, 10 mL, intravenous, PRN, Diamond Allen MD No current outpatient medications on file. Disposition: Admission Condition: Serious Patient Progress: Unchanged Risk of complications, morbidity, or mortality is: Presenting problems: high Diagnostic procedures: high Management options: high Kody Steiner MD 11/12/[address] ABDOMEN PELVIS WO STAT 11/12/2018 5:10 AM DEVELOPMENT GEOLOGIST Results for this CONTRAST procedure are in the results section. URINALYSIS SCREEN AND Routine 11/12/2018 5:00 AM DEVELOPMENT GEOLOGIST Results for this MICROSCOPY, WITH REFLEX TO procedure are in the CULTURE results section. URINE CULTURE Routine 11/12/2018 5:00 AM DEVELOPMENT GEOLOGIST XR CHEST 1 VW PORTABLE STAT 11/12/2018 4:59 AM DEVELOPMENT GEOLOGIST B NATRIURETIC PEPTIDE STAT 11/12/2018 4:15 AM DEVELOPMENT GEOLOGIST TROPONIN STAT 11/12/2018 4:15 AM DEVELOPMENT GEOLOGIST ESTIMATED GFR STAT 11/12/2018 4:15 AM DEVELOPMENT GEOLOGIST LACTIC ACID LEVEL STAT 11/12/2018 4:15 AM DEVELOPMENT GEOLOGIST LIPASE LEVEL STAT 11/12/2018 4:15 AM DEVELOPMENT GEOLOGIST COMPREHENSIVE METABOLIC STAT 11/12/2018 4:15 AM DEVELOPMENT GEOLOGIST Results for this PANEL procedure are in the results section. HC COMPLETE BLD COUNT W/AUTO STAT 11/12/2018 4:15 AM DEVELOPMENT GEOLOGIST Results for this DIFF procedure are in the results section. [place] [facility], E/M 30-74 Routine 11/12/2018 4:14 AM DEVELOPMENT GEOLOGIST Results for this MINUTES procedure are in the results section. ECG 12-LEAD STAT 11/12/2018 4:02 AM DEVELOPMENT GEOLOGIST after 04/06/2018 Results POC glucose (11/18/2018 4:35 PM DEVELOPMENT GEOLOGIST)Only the most recent of31 resultswithin the time period is included. POC glucose 252 (H) 65 - 99 mg/dL [place] Comment: [facility] Notified RN Meter ID: [id number] Signal System Testing Maintainer: Nikita Anderson Specimen Performing Organization Address City/[facility] Centercode Phone Number [facility] DEPARTMENT OF PATHOLOGY AND [address] [place] [address] C difficile toxin (11/16/2018 8:00 PM DEVELOPMENT GEOLOGIST) Pathologist [facility] Clostridium Positive for C. difficile toxin (A) [facility] difficile toxin Comment: HOSPITAL Specimen Information Specimen Source: Stool Specimen Site: Nonpreserved Specimen Stool - Nonpreserved Performing Organization Address City/[facility] Centercode Phone Number [facility] DEPARTMENT OF PATHOLOGY AND [address] [place] [address] Hemoglobin A1c (11/15/2018 10:03 AM DEVELOPMENT GEOLOGIST) Pathologist [facility] Hemoglobin A1C 13.6 (H) 4.0 - 5.6 % [facility] Comment: [facility] HbA1c cutoffs for diagnosing diabetes: 4.0% - 5.6%=normal 5.7% - 6.4%=increased risk for diabetes (prediabetes) >=6.5%=diabetes Goals for glycemic control (ADA 2016) < 7.0%Target for non adults with diabetes. More or less stringent targets may be appropriate for individual patients. <7.5% Target for Children and adolescents with type 1 diabetes. Specimen Blood Performing Organization Address City/State/Zipcode Phone Number [facility] DEPARTMENT OF PATHOLOGY AND [address] [place] [phone] [place] [phone] Estimated GFR (11/15/2018 5:10 AM DEVELOPMENT GEOLOGIST)Only the most recent of4 resultswithin the time period is included. Pathologist [facility] Estimated GFR >=90 mL/min/1.73 [facility] Comment: m2 HOSPITAL CatergoryUnitsInterpretation G1 >=90 Normal or high G2 60-89Mildly decreased [id number] to moderately decreased Q7e95-33Vvquxhwraf to severely decreased G4 15-29Severely decreased G5 <15Kidney failure The eGFR was calculated using the Chronic Kidney Disease Epidemiology Collaboration (CKD-EPI) equation. Interpretation is based on recommendations of the National Kidney Foundation-Kidney Disease Outcomes Quality Initiative (NKF-KDOQI) published in 2014. Specimen Plasma specimen Performing Organization Address City/State/Zipcode Phone Number [facility] DEPARTMENT OF PATHOLOGY AND [address] [place] [phone] [place] [phone] CBC with platelet and differential (11/15/2018 5:10 AM DEVELOPMENT GEOLOGIST)Only the most recent of4 resultswithin the time period is included. [facility] WBC 9.57 4.50 - 11.00 [facility] k/uL [facility] RBC 5.25 4.40 - 6.00 [facility] m/uL [facility] HGB 10.7 (L) 14.0 - 18.0 [facility] g/dL [facility] HCT 36.7 (L) 41.0 - 51.0 % [facility] MCV 69.9 (L) 82.0 - 100.0 [facility] MCH 20.4 (L) 27.0 - 34.[address] [facility] MCHC 29.2 (L) 31.0 - 37.0 [facility] RDW - SD 44.4 37.0 - 55.[address] [facility] MPV 9.7 8.8 - 13.[address] [facility] Platelet count 330 150 - 400 k/uL [facility] Nucleated RBC 0.00 /[address] [facility] Neutrophils 57.7 39.0 - 69.0 % [facility] Lymphocytes 31.0 25.0 - 45.0 % [facility] Monocytes 8.0 0.0 - 10.0 % [facility] Eosinophils 2.0 0.0 - 5.0 % [facility] Basophils 0.8 0.0 - 1.0 % [facility] Immature granulocytes 0.5Comment: 0.0 - 1.0 % [facility] "[facility] granulocytes" (promyelocytes , myelocytes, metamyelocytes ) Specimen Blood Performing Organization Address City/[facility] Centercode Phone Number [facility] DEPARTMENT OF PATHOLOGY AND [address] [place] [address] Basic metabolic panel (11/15/2018 5:10 AM DEVELOPMENT GEOLOGIST)Only the most recent of3 resultswithin the time period is included. Sodium 134 (L) 135 - 148 mEq/L [facility] Potassium 3.9 3.5 - 5.0 mEq/L [facility] Chloride 102 98 - 112 mEq/L [facility] CO2 20 (L) 24 - 31 mEq/L [facility] Anion gap 12@ANIO 7 - 15 mEq/L [facility] BUN 11 6 - 20 mg/dL [facility] Creatinine 0.96 0.70 - 1.20 mg/dL [facility] Glucose 364 (H) 65 - 99 mg/dL [facility] Calcium 8.8 8.3 - 10.2 mg/dL [facility] Specimen Plasma specimen Performing Organization Address City/[facility] Centercode Phone Number [facility] DEPARTMENT OF PATHOLOGY AND [address] [place] [address] Echocardiogram complete w contrast and 3D if needed (11/13/2018 11:12 AM DEVELOPMENT GEOLOGIST) Specimen Narrative Performed At [facility] Echocardiography Report [address] [place] [address] Pat.Name:RAYMUNDO MCDOWELL Airam.ID:[id number] .Date: 11/13/2018Refharish.MD:NOY CASSIDY MD Exam Time: 10:33:00 AM Study Type:Routine Echo Height:69inWeight: 211lb BSA: 2.12 m2 DOBAge:1985,33Y Sex: MALEBP:122/80 Sonogrphr: Aide Pal RDCS, RVSPat. Stat.:Inpatient Room:[facility] Study Status:Final Echo Event ID:[id number] Order ID:[id number] Reason for Study:Syncope without cardiac evidence Procedures:2D [...] PA systolic pressure. MEASUREMENTS: 2D Parasternal [place] Ds4 cmLVPWd1.1 cm LVOT 2.3 cmAo An2.3 cm LVIDd4.9 cmIndex2.3 cm/m Ao Rtd 3.6 cm Index1.7 cm/m LVIDs3.1 cm LV Kexq088.6 g(122-174) LV%fs 36.3 % LVM Index 89 g/m2 IVSd 1 cmRWT0.4 LA Sng Plane LA Area 20.7 cm2(8.8-23.4) LA Vol60.5 ml Index28.5 ml/m LA LngAx 5.7 cm RA Sng Plane RA Area 13.2 cm2(8.3-19.5) RA Vol30.2 ml Index14.2 ml/m RA LngAx 5.4 cm DOPPLER LVOT Stroke Vol LVOT 2.3 cmLVOT CO7.7 l/min LVOT TVI19.2 cmLVOT CI3.6 l/m/m2 LVOT Tm283 fifaBU99 bpm LVOT SV 79.7 ml Signed 11/13/2018 12:07 PM Tone Orellana MD Procedure Note Interface, Radiology Results In - 11/13/2018 12:07 PM DEVELOPMENT GEOLOGIST Echocardiography Report [address]Name: RAYMUNDO MCDOWELL Pat.ID: [id number] .Date: 11/13/2018 Refer.MD: NOY CASSIDY MD Exam Time: 10:33:00 AM Study Type:Routine Echo Height: 69in Weight: 211lb BSA: 2.12 m2 Age: 6 1985,33Y Sex: MALE BP: 122/80 Sonogrphr: Aide Pal RDCS, RVSPat. Stat.:Inpatient Room: [facility] Study Status:Final Echo Event ID:[id number] Order ID: [id number] Reason for Study:Syncope without cardiac evidence Procedures:2D [...] PA systolic pressure. MEASUREMENTS: 2D Parasternal [place] Ds 4 cm LVPWd 1.1 cm [...] PM Tone Orellana MD Performing Organization Address City/[facility]/Zipcode Phone Number [facility] [address] [place] [address] Total iron binding capacity (11/12/2018 12:40 PM DEVELOPMENT GEOLOGIST) Iron level 24 (L) 59 - 158 ug/dL [facility] Iron binding capacity 322 200 - 400 ug/dL [facility] % Saturation 7.5 (L) 20.0 - 40.0 % [facility] Specimen Plasma specimen Performing Organization Address [facility] Centercode Phone Number [facility] DEPARTMENT OF PATHOLOGY AND [address] [place] [phone] [place] [phone] Folate level (11/12/2018 12:40 PM DEVELOPMENT GEOLOGIST) Folate 14.9 4.8 - 24.2 ng/mL [facility] Specimen Serum Performing Organization Address [facility] Phone Number [facility] DEPARTMENT OF PATHOLOGY AND [address] [place] [phone] [place] [phone] Ferritin level (11/12/2018 12:40 PM DEVELOPMENT GEOLOGIST) Ferritin level <13 (A) 30 - 400 ng/mL [facility] Specimen Plasma specimen Performing Organization Address [facility] Phone Number [facility] DEPARTMENT OF PATHOLOGY AND [address] [place] [phone] Vitamin B12 level (11/12/2018 12:40 PM DEVELOPMENT GEOLOGIST) Vitamin B12 307 211 - 946 [facility] Comment: pg/mL HOSPITAL Significant overlap exists between normal and deficiency states. However, most patients with deficiencies will have Serum B12 <200 pg/mL. Specimen Serum Performing Organization Address [facility] Centercode Phone Number [facility] DEPARTMENT OF PATHOLOGY AND [address] [place] [phone] [place] [phone] Blood culture, aerobic & anaerobic (11/12/2018 7:40 AM DEVELOPMENT GEOLOGIST)Only the most recent of2 resultswithin the time period is included. Pathologist [facility] Blood culture No growth after 5 days of incubation. [facility] isolate Comment: HOSPITAL Specimen Information Specimen Source: Blood Specimen Site: Arm, right Specimen Blood - Arm, right Performing Organization Address [facility] Centercode Phone Number [facility] DEPARTMENT OF PATHOLOGY AND [address] [place] [phone] [place] [phone] Respiratory pathogen panel (11/12/2018 7:38 AM DEVELOPMENT GEOLOGIST) [facility] Respiratory Negative for all pathogens tested: [place] pathogen panel Negative for Adenovirus [place] Negative for Coronavirus HKU1 [facility] Negative for Coronavirus NL63 Negative for [...] Specimen Nares - Left Performing Organization Address [facility] Centerconm Phone Number [facility] DEPARTMENT OF PATHOLOGY AND [address] [place] [address] Creatine kinase, total (CPK) (11/12/2018 7:38 AM DEVELOPMENT GEOLOGIST) [facility] Creatine kinase 27 (L) 39 - 308 U/L [facility] Specimen Plasma specimen Performing Organization Address [facility] Centercode Phone Number [facility] DEPARTMENT OF PATHOLOGY AND [address] [place] [phone] Abdomen Pelvis Wo Contrast (11/12/2018 5:10 AM DEVELOPMENT GEOLOGIST) Specimen Narrative Performed At EXAMINATION:CT ABDOMEN PELVIS [...] bladder or outlet obstruction. Otherwise unremarkable exam. [facility]-[id number] Procedure Note Interface, Radiology Results Incoming - 11/12/2018 5:19 AM DEVELOPMENT GEOLOGIST EXAMINATION: CT ABDOMEN PELVIS WO CONTRAST CLINICAL [...] bladder or outlet obstruction. Otherwise unremarkable exam. [facility]-[id number] Performing Organization Address City/State/Zipcode Phone Number [facility] [address] [place] [address] Urinalysis screen and microscopy, with reflex to culture (11/12/2018 5:00 AM DEVELOPMENT GEOLOGIST) Specimen site Catheterized [facility] Color, UA Straw [facility] Appearance, UA Clear [facility] Specific gravity, UA 1.011 1.001 - 1.[address] [facility] pH, UA 6.0 5.0 - 8.[address] [facility] Protein, UA 1+ (A) Negative [facility] Glucose, UA 3+ (A) Negative [facility] Ketones, UA Negative Negative [facility] Bilirubin, UA Negative Negative [facility] Blood, UA Negative Negative [facility] Nitrite, UA Negative Negative [facility] Urobilinogen, UA <2.0 <2.[address] [facility] Leukocyte esterase, Negative Negative [facility] Epithelial cells, UA <1 /HPF [facility] WBC, UA <1 0 - 1 /HPF [facility] RBC, UA 5 0 - 5 /HPF [facility] Bacteria, UA None seen None seen [facility] Yeast, UA None seen [facility] Yeast with None seen [facility] [facility] pseudohyphae, [facility] Hyaline casts, UA 1 /LPF [facility] Specimen Urine Performing Organization Address City/[facility] Cent[facility]ode Phone Number [facility] DEPARTMENT OF PATHOLOGY AND [address] [place] [phone] Urine culture (11/12/2018 5:00 AM DEVELOPMENT GEOLOGIST) Urine culture SEE COMMENTComment: [facility] Bacteriuria screen HOSPITAL negative. Specimen Performing Organization Address City/[facility] Centercode Phone Number [facility] DEPARTMENT OF PATHOLOGY AND [address] [place] [phone] XR Chest 1 Vw Portable (11/12/2018 4:59 AM DEVELOPMENT GEOLOGIST) Specimen Narrative Performed At EXAMINATION:XR CHEST 1 VW PORTABLE RADIANT CLINICAL HISTORY:hypotension COMPARISON:None IMPRESSION: Slight eventration of right hemidiaphragm. No consolidations, effusions, or pneumothorax. Cardiomediastinal silhouette is within normal limits. No acute osseous abnormalities. [facility]-[id number] Procedure Note Hm Interface, Radiology Results Incoming - 11/12/2018 5:11 AM DEVELOPMENT GEOLOGIST EXAMINATION: XR CHEST 1 VW PORTABLE CLINICAL HISTORY: hypotension COMPARISON: None IMPRESSION: Slight eventration of right hemidiaphragm. No consolidations, effusions, or pneumothorax. Cardiomediastinal silhouette is within normal limits. No acute osseous abnormalities. [facility]-[id number] Performing Organization Address City/State/Zipcode Phone Number [facility] [address] [place] [phone] Troponin (11/12/2018 4:15 AM DEVELOPMENT GEOLOGIST) Troponin <0.30 0.00 - 0.30 [facility] Comment: ng/mL HOSPITAL 0.30 - 1.49 ng/mlMay indicate increased risk of acute coronary syndrome. >=1.5 ng/mlConsistent with acute myocardial infarction. The diagnostic value of a single normal or non-diagnostic result is questionable.Serial samples at 2-6 hour intervals are required to rule out acute myocardial injury. Specimen Plasma specimen Performing Organization Address [facility] Centercode Phone Number [facility] DEPARTMENT OF PATHOLOGY AND [address] [place] [phone] [address] B natriuretic peptide (11/12/2018 4:15 AM DEVELOPMENT GEOLOGIST) BNP 17 0 - 100 pg/mL [facility] Specimen Performing Organization Address [facility] Centercode Phone Number [facility] DEPARTMENT OF PATHOLOGY AND [address] [place] [phone] Lipase level (11/12/2018 4:15 AM DEVELOPMENT GEOLOGIST) Lipase 21 13 - 60 U/L [facility] Specimen Plasma specimen Performing Organization Address City/[facility] Centercode Phone Number [facility] DEPARTMENT OF PATHOLOGY AND [address] [place] [phone] [address] Lactic acid level (11/12/2018 4:15 AM DEVELOPMENT GEOLOGIST) Lactic acid 2.2 0.5 - 2.2 mmol/L [facility] Specimen Plasma specimen Performing Organization Address [facility] Centercode Phone Number [facility] DEPARTMENT OF PATHOLOGY AND [address] [place] [phone] [address] Comprehensive metabolic panel (11/12/2018 4:15 AM DEVELOPMENT GEOLOGIST) Sodium 139 135 - 148 [facility] mEq/L [facility] Potassium 3.9 3.5 - 5.0 [facility] mEq/L [facility] Chloride 106 98 - 112 mEq/L [facility] CO2 24 24 - 31 mEq/L [facility] Anion gap 9@ANIO 7 - 15 mEq/L [facility] BUN 23 (H) 6 - 20 mg/dL [facility] Creatinine 1.40 (H) 0.70 - 1.20 [facility] mg/dL [facility] Glucose 212 (H) 65 - 99 mg/dL [facility] Calcium 8.4 8.3 - 10.2 [facility] mg/dL [facility] Protein 5.9 (L) 6.3 - 8.3 g/dL [facility] Comment: HOSPITAL 4.6-7.0 g/dL 1 week 4.4-7.6 g/dL 7 months-1year5.1-7.3 g/dL 1-2 years5.6-7.5 g/dL >3 years6.0-8.0 g/dL 18-150 6.3-8.3 g/dL Albumin 2.7 (L) 3.5 - 5.0 g/dL [facility] A/G ratio 0.8 0.7 - 3.[address] [facility] Alkaline phosphatase 103 40 - 129 U/L [facility] AST 11 10 - 50 U/L [facility] ALT 10 5 - 50 U/L [facility] Total bilirubin <0.2 0.0 - 1.2 [facility] mg/dL [facility] Specimen Plasma specimen Performing Organization Address City/State/Zipcode Phone Number [facility] DEPARTMENT OF PATHOLOGY AND [address] [place] [phone] [facility] [address] [address] CRITICAL CARE (11/12/2018 4:14 AM DEVELOPMENT GEOLOGIST) Narrative Performed At Kody Steiner MD 11/12/20187:37 [...] charts ECG 12 lead (11/12/2018 4:02 AM DEVELOPMENT GEOLOGIST) Ventricular rate 72 [facility] Atrial rate 72 [facility] [place] interval 120 [facility] QRSD interval 92 [...] At Performing Organization Address City/State/Zipcode Phone Number [facility] [place] [place] [address] [place] [address] after 04/06/2018 Insurance Payer Benefit Plan / Subscriber ID Effective Dates Phone Address Type Group MEDICARE MEDICARE PART A xxxxxxxxxxx 2008-Present [place], [place] Medicare AND B MEDICAID MEDICAID xxxxxxxxx 2011-Present Medicaid Advance Directives Patient has advance care planning documents on file. For more information, please contact:Paddy Bowie[address] [place] [address]
--- OUTSIDE RECORDS SUMMARY | 2019-04-07 11:11 | XMS REPORT ---
:1985 [facility] [address] [place] [address] [address] [place] [address] Care Team Providers Name Role Phone UNKNOWN, [...] Type Clinicians Facility Department ID 2017-12-16 Inpatient [facility] [id number] 09:23:00 2017-07-02 2017-07-07 Inpatient [facility] Alfred[facility] [id number] 14:57:00 22:44:00 [place] Results Test Description Test [...] the Main Lab for Analysis. Comprehensive Metabolic [id number] 07:08:00 Test Item Value Reference Range Comments [...] race is not provided, and the patient isAfrican-Mold[place], multiply by 1.212. If sex is not [...] the National Kidney Foundation,http://nkdep.nih .gov CBC with [id number] 06:48:00 Test Item Value Reference Range Comments [...] Lymph Abs (test code=ALYMPH) 4.5 K/cumm 0.5-4.6 Foster Abs (test code=AMONO) 0.6 K/cumm 0.0-1.2 Eos Abs (test code=AEOS) 0.18 K/cumm 0.00-0.74 Baso Abs (test code=ABASO) 0.1 K/cumm 0.00-0.21 Microcytosis (test code=MICRO) Slight Hypochromic (test code=HYPO) Slight POC Glucose, [id number] 19:07:00 Test Item Value Reference Range Comments POC Glucose (test 227 mg/dL 70-115 If you consider your patient code=POCGLUC) critically ill, the [place] Accu-Chek InformII metershould not be used for Glucose determinations.Draw a venous Glucose and send to the Main Lab for Analysis. POC Glucose, [id number] 16:11:00 Test Item Value Reference Range Comments POC Glucose (test 266 mg/dL 70-115 If you consider your patient code=POCGLUC) critically ill, the [place] Accu-Chek InformII metershould not be used for Glucose determinations.Draw a venous Glucose and send to the Main Lab for Analysis. POC Glucose, [id number] 11:36:00 Test Item Value Reference Range Comments POC Glucose (test 69 mg/dL 70-115 If you consider your patient code=POCGLUC) critically ill, the [place] Accu-Chek InformII metershould not be used for Glucose determinations.Draw a venous Glucose and send to the Main Lab for Analysis. POC Glucose, [id number] 07:45:00 Test Item Value Reference Range Comments POC Glucose (test 234 mg/dL 70-115 If you consider your patient code=POCGLUC) critically ill, the [place] Accu-Chek InformII metershould not be used for Glucose determinations.Draw a venous Glucose and send to the Main Lab for Analysis. POC Glucose, [id number] 19:15:00 Test Item Value Reference Range Comments POC Glucose (test 148 mg/dL 70-115 If you consider your patient code=POCGLUC) critically ill, the [place] Accu-Chek InformII metershould not be used for Glucose determinations.Draw a venous Glucose and send to the Main Lab for Analysis. POC Glucose, [id number] 15:37:00 Test Item Value Reference Range Comments POC Glucose (test 133 mg/dL 70-115 If you consider your patient code=POCGLUC) critically ill, the [place] Accu-Chek InformII metershould not be used for Glucose determinations.Draw a venous Glucose and send to the Main Lab for Analysis. POC Glucose, [id number] 11:10:00 Test Item Value Reference Range Comments POC Glucose (test 203 mg/dL 70-115 Notify RN or MDIf you consider code=POCGLUC) your patient critically ill, the [place] Accu-Chek InformII metershould not be used for Glucose determinations.Draw a venous Glucose and send to the Main Lab for Analysis. POC Glucose, [id number] 07:29:00 Test Item Value Reference Range Comments POC Glucose (test 261 mg/dL 70-115 Notify RN or MDIf you consider code=POCGLUC) your patient critically ill, the [place] Accu-Chek InformII metershould not be used for Glucose determinations.Draw a venous Glucose and send to the Main Lab for Analysis. POC Glucose, [id number] 19:32:00 Test Item Value Reference Range Comments POC Glucose (test 226 mg/dL 70-115 If you consider your patient code=POCGLUC) critically ill, the [place] Accu-Chek InformII metershould not be used for Glucose determinations.Draw a venous Glucose and send to the Main Lab for Analysis. POC Glucose, [id number] 15:58:00 Test Item Value Reference Range Comments POC Glucose (test 138 mg/dL 70-115 Notify RN or MDIf you consider code=POCGLUC) your patient critically ill, the [place] Accu-Chek InformII metershould not be used for Glucose determinations.Draw a venous Glucose and send to the Main Lab for Analysis. POC Glucose, [id number] 11:48:00 Test Item Value Reference Range Comments POC Glucose (test 154 mg/dL 70-115 Notify RN or MDIf you consider code=POCGLUC) your patient critically ill, the [place] Accu-Chek InformII metershould not be used for Glucose determinations.Draw a venous Glucose and send to the Main Lab for Analysis. POC Glucose, [id number] 07:23:00 Test Item Value Reference Range Comments POC Glucose (test 131 mg/dL 70-115 Notify RN or MDIf you consider code=POCGLUC) your patient critically ill, the [place] Accu-Chek InformII metershould not be used for Glucose determinations.Draw a venous Glucose and send to the Main Lab for Analysis. POC Glucose, [id number] 19:38:00 Test Item Value Reference Range Comments POC Glucose (test 160 mg/dL 70-115 If you consider your patient code=POCGLUC) critically ill, the [place] Accu-Chek InformII metershould not be used for Glucose determinations.Draw a venous Glucose and send to the Main Lab for Analysis. POC Glucose, [id number] 17:27:00 Test Item Value Reference Range Comments POC Glucose (test 191 mg/dL 70-115 If you consider your patient code=POCGLUC) critically ill, the [place] Accu-Chek InformII metershould not be used for Glucose determinations.Draw a venous Glucose and send to the Main Lab for Analysis. POC Glucose, [id number] 14:19:00 Test Item Value Reference Range Comments POC Glucose (test 252 mg/dL 70-115 If you consider your patient code=POCGLUC) critically ill, the [place] Accu-Chek InformII metershould not be used for Glucose determinations.Draw a venous Glucose and send to the Main Lab for Analysis. POC Glucose, [id number] 11:41:00 Test Item Value Reference Range Comments POC Glucose (test 114 mg/dL 70-115 If you consider your patient code=POCGLUC) critically ill, the [place] Accu-Chek InformII metershould not be used for Glucose determinations.Draw a venous Glucose and send to the Main Lab for Analysis. POC Glucose, [id number] 05:58:00 Test Item Value Reference Range Comments POC Glucose (test 347 mg/dL 70-115 If you consider your patient code=POCGLUC) critically ill, the [place] Accu-Chek InformII metershould not be used for Glucose determinations.Draw a venous Glucose and send to the Main Lab for Analysis. POC Glucose, [id number] 19:27:00 Test Item Value Reference Range Comments POC Glucose (test 334 mg/dL 70-115 Notify RN or MDIf you consider code=POCGLUC) your patient critically ill, the [place] Accu-Chek InformII metershould not be used for Glucose determinations.Draw a venous Glucose and send to the Main Lab for Analysis. POC Glucose, [id number] 15:02:00 Test Item Value Reference Range Comments POC Glucose (test 72 mg/dL 70-115 If you consider your patient code=POCGLUC) critically ill, the [place] Accu-Chek InformII metershould not be used for Glucose determinations.Draw a venous Glucose and send to the Main Lab for Analysis. POC Glucose, [id number] 12:14:00 Test Item Value Reference Range Comments POC Glucose (test 110 mg/dL 70-115 If you consider your patient code=POCGLUC) critically ill, the [place] Accu-Chek InformII metershould not be used for Glucose determinations.Draw a venous Glucose and send to the Main Lab for Analysis. POC Glucose, [id number] 06:03:00 Test Item Value Reference Range Comments POC Glucose (test 224 mg/dL 70-115 If you consider your patient code=POCGLUC) critically ill, the [place] Accu-Chek InformII metershould not be used for Glucose determinations.Draw a venous Glucose and send to the Main Lab for Analysis. POC Glucose, [id number] 19:29:00 Test Item Value Reference Range Comments POC Glucose (test 300 mg/dL 70-115 Notify RN or MDIf you consider code=POCGLUC) your patient critically ill, the [place] Accu-Chek InformII metershould not be used for Glucose determinations.Draw a venous Glucose and send to the Main Lab for Analysis. POC Glucose, [id number] 16:00:00 Test Item Value Reference Range Comments POC Glucose (test 283 mg/dL 70-115 Notify RN or MDIf you consider code=POCGLUC) your patient critically ill, the [place] Accu-Chek InformII metershould not be used for Glucose determinations.Draw a venous Glucose and send to the Main Lab for Analysis. RPR, [id number] 14:24:00 Test Item Value Reference Range Comments RPR (test code=RPR) Non-Reactive Non-Reactive POC Glucose, [id number] 11:09:00 Test Item Value Reference Range Comments [...] TSH (test code=TSH) 2.05 mIU/mL 0.270-4.200 Lipid [id number] 08:56:00 Test Item Value Reference Range Comments Cholesterol (test 215 mg/dL 0-200 code=CHOL) Triglycerides (test 370 mg/dL 9-200 code=TRIG) HDL (test code=HDL) 33 mg/dL 40-60 Chol/HDL (test 6.5 Ratio 0.0-5.0 code=CHOLPHDL) LDL, Calculated (test 108 0-130 (NOTE)RISK OF HEART code=LDLC) DISEASEPublished by [place] Heart AssociationAnalyte Optimal Boderline Increased RiskCHOL <200 200-239 >240TRIG <150 150-199 >200HDL Male: >60 <40HDL Female: >60 <50LDL <100 130-159 >160LDL NEAR OPTIMAL IS 100-129 VLDL (test code=VLDL) 74 mg/dL 5-40 LDL/HDL (test code=LDLPHDL) 3 POC Glucose, [id number] 05:44:00 Test Item Value Reference Range Comments POC Glucose (test 229 mg/dL 70-115 Notify RN or MDIf you consider code=POCGLUC) your patient critically ill, the [place] Accu-Chek InformII metershould not be used for Glucose determinations.Draw a venous Glucose and send to the Main Lab for Analysis. POC Glucose, [id number] 11:20:00 Test Item Value Reference Range Comments POC Glucose (test 160 mg/dL 70-115 If you consider your patient code=POCGLUC) critically ill, the [place] Accu-Chek InformII metershould not be used for Glucose determinations.Draw a venous Glucose and send to the Main Lab for Analysis. POC Glucose, [id number] 07:41:00 Test Item Value Reference Range Comments POC Glucose (test 121 mg/dL 70-115 If you consider your patient code=POCGLUC) critically ill, the [place] Accu-Chek InformII metershould not be used for Glucose determinations.Draw a venous Glucose and send to the Main Lab for Analysis. POC Glucose, [id number] 21:24:00 Test Item Value Reference Range Comments POC Glucose (test 108 mg/dL 70-115 If you consider your patient code=POCGLUC) critically ill, the [place] Accu-Chek InformII metershould not be used for Glucose determinations.Draw a venous Glucose and send to the Main Lab for Analysis. POC Glucose, [id number] 15:55:00 Test Item Value Reference Range Comments POC Glucose (test 160 mg/dL 70-115 Notify RN or MDIf you consider code=POCGLUC) your patient critically ill, the [place] Accu-Chek InformII metershould not be used for Glucose determinations.Draw a venous Glucose and send to the Main Lab for Analysis. POC Glucose, [id number] 11:21:00 Test Item Value Reference Range Comments POC Glucose (test 111 mg/dL 70-115 If you consider your patient code=POCGLUC) critically ill, the [place] Accu-Chek InformII metershould not be used for Glucose determinations.Draw a venous Glucose and send to the Main Lab for Analysis. POC Glucose, [id number] 08:06:00 Test Item Value Reference Range Comments POC Glucose (test 135 mg/dL 70-115 If you consider your patient code=POCGLUC) critically ill, the [place] Accu-Chek InformII metershould not be used for Glucose determinations.Draw a venous Glucose and send to the Main Lab for Analysis. POC Glucose, [id number] 22:43:00 Test Item Value Reference Range Comments POC Glucose (test 106 mg/dL 70-115 If you consider your patient code=POCGLUC) critically ill, the [place] Accu-Chek InformII metershould not be used for Glucose determinations.Draw a venous Glucose and send to the Main Lab for Analysis. POC Glucose, [id number] 16:42:00 Test Item Value Reference Range Comments POC Glucose (test 96 mg/dL 70-115 If you consider your patient code=POCGLUC) critically ill, the [place] Accu-Chek InformII metershould not be used for Glucose determinations.Draw a venous Glucose and send to the Main Lab for Analysis. POC Glucose, [id number] 11:10:00 Test Item Value Reference Range Comments POC Glucose (test 149 mg/dL 70-115 Notify RN or MDIf you consider code=POCGLUC) your patient critically ill, the [place] Accu-Chek InformII metershould not be used for Glucose determinations.Draw a venous Glucose and send to the Main Lab for Analysis. POC Glucose, [id number] 07:26:00 Test Item Value Reference Range Comments POC Glucose (test 124 mg/dL 70-115 If you consider your patient code=POCGLUC) critically ill, the [place] Accu-Chek InformII metershould not be used for Glucose determinations.Draw a venous Glucose and send to the Main Lab for Analysis. POC Glucose, [id number] 21:16:00 Test Item Value Reference Range Comments POC Glucose (test 164 mg/dL 70-115 Notify RN or MDIf you consider code=POCGLUC) your patient critically ill, the [place] Accu-Chek InformII metershould not be used for Glucose determinations.Draw a venous Glucose and send to the Main Lab for Analysis. POC Glucose, [id number] 16:34:00 Test Item Value Reference Range Comments POC Glucose (test 100 mg/dL 70-115 If you consider your patient code=POCGLUC) critically ill, the [place] Accu-Chek InformII metershould not be used for Glucose determinations.Draw a venous Glucose and send to the Main Lab for Analysis. POC Glucose, [id number] 11:06:00 Test Item Value Reference Range Comments POC Glucose (test 120 mg/dL 70-115 If you consider your patient code=POCGLUC) critically ill, the [place] Accu-Chek InformII metershould not be used for Glucose determinations.Draw a venous Glucose and send to the Main Lab for Analysis. POC Glucose, [id number] 07:30:00 Test Item Value Reference Range Comments POC Glucose (test 80 mg/dL 70-115 If you consider your patient code=POCGLUC) critically ill, the [place] Accu-Chek InformII metershould not be used for Glucose determinations.Draw a venous Glucose and send to the Main Lab for Analysis. POC Glucose, [id number] 21:17:00 Test Item Value Reference Range Comments POC Glucose (test 175 mg/dL 70-115 Notify RN or MDIf you consider code=POCGLUC) your patient critically ill, the [place] Accu-Chek InformII metershould not be used for Glucose determinations.Draw a venous Glucose and send to the Main Lab for Analysis. POC Glucose, [id number] 17:46:00 Test Item Value Reference Range Comments POC Glucose (test 128 mg/dL 70-115 If you consider your patient code=POCGLUC) critically ill, the [place] Accu-Chek InformII metershould not be used for Glucose determinations.Draw a venous Glucose and send to the Main Lab for Analysis. POC Glucose, [id number] 11:35:00 Test Item Value Reference Range Comments POC Glucose (test 134 mg/dL 70-115 If you consider your patient code=POCGLUC) critically ill, the [place] Accu-Chek InformII metershould not be used for Glucose determinations.Draw a venous Glucose and send to the Main Lab for Analysis. POC Glucose, [id number] 08:10:00 Test Item Value Reference Range Comments POC Glucose (test 220 mg/dL 70-115 If you consider your patient code=POCGLUC) critically ill, the [place] Accu-Chek InformII metershould not be used for Glucose determinations.Draw a venous Glucose and send to the Main Lab for Analysis. Comprehensive Metabolic [id number] 06:52:00 Test Item Value Reference Range Comments [...] race is not provided, and the patient isAfrican-[place], multiply by 1.212. If sex is not [...] the National Kidney Foundation,http://nkdep.nih .gov CBC with [id number] 06:34:00 Test Item Value Reference Range Comments [...] Lymph Abs (test code=ALYMPH) 2.4 K/cumm 0.5-4.6 Foster Abs (test code=AMONO) 0.7 K/cumm 0.0-1.2 Eos Abs (test code=AEOS) 0.19 K/cumm 0.00-0.74 Baso Abs (test code=ABASO) 0.1 K/cumm 0.00-0.21 Microcytosis (test code=MICRO) Slight POC Glucose, [id number] 20:28:00 Test Item Value Reference Range Comments POC Glucose (test 211 mg/dL 70-115 If you consider your patient code=POCGLUC) critically ill, the [place] Accu-Chek InformII metershould not be used for Glucose determinations.Draw a venous Glucose and send to the Main Lab for Analysis. POC Glucose, [id number] 17:09:00 Test Item Value Reference Range Comments POC Glucose (test 146 mg/dL 70-115 If you consider your patient code=POCGLUC) critically ill, the [place] Accu-Chek InformII metershould not be used for Glucose determinations.Draw a venous Glucose and send to the Main Lab for Analysis. POC Glucose, [id number] 11:53:00 Test Item Value Reference Range Comments POC Glucose (test 136 mg/dL 70-115 If you consider your patient code=POCGLUC) critically ill, the [place] Accu-Chek InformII metershould not be used for Glucose determinations.Draw a venous Glucose and send to the Main Lab for Analysis. POC Glucose, [id number] 07:57:00 Test Item Value Reference Range Comments POC Glucose (test 143 mg/dL 70-115 If you consider your patient code=POCGLUC) critically ill, the [place] Accu-Chek InformII metershould not be used for Glucose determinations.Draw a venous Glucose and send to the Main Lab for Analysis. POC Glucose, [id number] 20:38:00 Test Item Value Reference Range Comments POC Glucose (test 152 mg/dL 70-115 Notify RN or MDIf you consider code=POCGLUC) your patient critically ill, the [place] Accu-Chek InformII metershould not be used for Glucose determinations.Draw a venous Glucose and send to the Main Lab for Analysis. POC Glucose, [id number] 16:49:00 Test Item Value Reference Range Comments POC Glucose (test 171 mg/dL 70-115 Notify RN or MDIf you consider code=POCGLUC) your patient critically ill, the [place] Accu-Chek InformII metershould not be used for Glucose determinations.Draw a venous Glucose and send to the Main Lab for Analysis. POC Glucose, [id number] 11:10:00 Test Item Value Reference Range Comments POC Glucose (test 160 mg/dL 70-115 Notify RN or MDIf you consider code=POCGLUC) your patient critically ill, the [place] Accu-Chek InformII metershould not be used for Glucose determinations.Draw a venous Glucose and send to the Main Lab for Analysis. POC Glucose, [id number] 07:36:00 Test Item Value Reference Range Comments POC Glucose (test 126 mg/dL 70-115 If you consider your patient code=POCGLUC) critically ill, the [place] Accu-Chek InformII metershould not be used for Glucose determinations.Draw a venous Glucose and send to the Main Lab for Analysis. POC Glucose, [id number] 20:51:00 Test Item Value Reference Range Comments POC Glucose (test 165 mg/dL 70-115 Notify RN or MDIf you consider code=POCGLUC) your patient critically ill, the [place] Accu-Chek InformII metershould not be used for Glucose determinations.Draw a venous Glucose and send to the Main Lab for Analysis. POC Glucose, [id number] 16:42:00 Test Item Value Reference Range Comments POC Glucose (test 133 mg/dL 70-115 If you consider your patient code=POCGLUC) critically ill, the [place] Accu-Chek InformII metershould not be used for Glucose determinations.Draw a venous Glucose and send to the Main Lab for Analysis. POC Glucose, [id number] 11:19:00 Test Item Value Reference Range Comments POC Glucose (test 250 mg/dL 70-115 Notify RN or MDIf you consider code=POCGLUC) your patient critically ill, the [place] Accu-Chek InformII metershould not be used for Glucose determinations.Draw a venous Glucose and send to the Main Lab for Analysis. Culture, [id number] 08:19:00Specimen: UrineCollected: 07/10/2017 12:47 Status: Final Last Updated: 07/12/2017 08:19 Culture Result (Final) (Final ) 07/11/17 No growth 24 hours 07/12/17 No growth 48 hoursPOC Glucose, [id number] 07:26:00 Test Item Value Reference Range Comments POC Glucose (test 131 mg/dL 70-115 Notify RN or MDIf you consider code=POCGLUC) your patient critically ill, the [place] Accu-Chek InformII metershould not be used for Glucose determinations.Draw a venous Glucose and send to the Main Lab for Analysis. POC Glucose, [id number] 20:55:00 Test Item Value Reference Range Comments POC Glucose (test 140 mg/dL 70-115 If you consider your patient code=POCGLUC) critically ill, the [place] Accu-Chek InformII metershould not be used for Glucose determinations.Draw a venous Glucose and send to the Main Lab for Analysis. POC Glucose, [id number] 16:13:00 Test Item Value Reference Range Comments POC Glucose (test 151 mg/dL 70-115 Notify RN or MDIf you consider code=POCGLUC) your patient critically ill, the [place] Accu-Chek InformII metershould not be used for Glucose determinations.Draw a venous Glucose and send to the Main Lab for Analysis. POC Glucose, [id number] 11:43:00 Test Item Value Reference Range Comments POC Glucose (test 170 mg/dL 70-115 Notify RN or MDIf you consider code=POCGLUC) your patient critically ill, the [place] Accu-Chek InformII metershould not be used for Glucose determinations.Draw a venous Glucose and send to the Main Lab for Analysis. POC Glucose, [id number] 07:23:00 Test Item Value Reference Range Comments POC Glucose (test 207 mg/dL 70-115 Notify RN or MDIf you consider code=POCGLUC) your patient critically ill, the [place] Accu-Chek InformII metershould not be used for Glucose determinations.Draw a venous Glucose and send to the Main Lab for Analysis. POC Glucose, [id number] 20:24:00 Test Item Value Reference Range Comments POC Glucose (test 208 mg/dL 70-115 If you consider your patient code=POCGLUC) critically ill, the [place] Accu-Chek InformII metershould not be used for Glucose determinations.Draw a venous Glucose and send to the Main Lab for Analysis. POC Glucose, [id number] 17:14:00 Test Item Value Reference Range Comments POC Glucose (test 158 mg/dL 70-115 If you consider your patient code=POCGLUC) critically ill, the [place] Accu-Chek InformII metershould not be used for Glucose determinations.Draw a venous Glucose and send to the Main Lab for Analysis. Urinalysis [id number] 13:04:00 Test Item Value Reference Range Comments Color (test code=COLOR) Straw Yellow,Straw,Pl yellow Clarity (test code=CLAR) Clear Clear Specific [place] (test code=SPGR) 1.010 1.001-1.035 pH (test code=PH) [...] Exam (test code=MEXAM) Not indicated POC Glucose, [id number] 11:48:00 Test Item Value Reference Range Comments POC Glucose (test 135 mg/dL 70-115 If you consider your patient code=POCGLUC) critically ill, the [place] Accu-Chek InformII metershould not be used for Glucose determinations.Draw a venous Glucose and send to the Main Lab for Analysis. POC Glucose, [id number] 07:47:00 Test Item Value Reference Range Comments POC Glucose (test 173 mg/dL 70-115 If you consider your patient code=POCGLUC) critically ill, the [place] Accu-Chek InformII metershould not be used for Glucose determinations.Draw a venous Glucose and send to the Main Lab for Analysis. Basic Metabolic [id number] 05:18:00 Test Item Value Reference Range Comments [...] race is not provided, and the patient isAfrican-[place], multiply by 1.212. If sex is not [...] the National Kidney Foundation,http://nkdep.nih .gov CBC with [id number] 04:59:00 Test Item Value Reference Range Comments [...] Lymph Abs (test code=ALYMPH) 2.7 K/cumm 0.5-4.6 Foster Abs (test code=AMONO) 0.8 K/cumm 0.0-1.2 Eos Abs (test code=AEOS) 0.26 K/cumm 0.00-0.74 Baso Abs (test code=ABASO) 0.0 K/cumm 0.00-0.21 POC Glucose, [id number] 20:59:00 Test Item Value Reference Range Comments POC Glucose (test 199 mg/dL 70-115 Notify RN or MDIf you consider code=POCGLUC) your patient critically ill, the [place] Accu-Chek InformII metershould not be used for Glucose determinations.Draw a venous Glucose and send to the Main Lab for Analysis. POC Glucose, [id number] 16:26:00 Test Item Value Reference Range Comments POC Glucose (test 170 mg/dL 70-115 Notify RN or MDIf you consider code=POCGLUC) your patient critically ill, the [place] Accu-Chek InformII metershould not be used for Glucose determinations.Draw a venous Glucose and send to the Main Lab for Analysis. POC Glucose, [id number] 11:41:00 Test Item Value Reference Range Comments POC Glucose (test 246 mg/dL 70-115 If you consider your patient code=POCGLUC) critically ill, the [place] Accu-Chek InformII metershould not be used for Glucose determinations.Draw a venous Glucose and send to the Main Lab for Analysis. Glycosylated [id number] 07:39:00 Test Item Value Reference Range Comments HBA1c (test code=HBA1C) 9.1 % 4.8-5.9 POC Glucose, [id number] 07:36:00 Test Item Value Reference Range Comments POC Glucose (test 206 mg/dL 70-115 If you consider your patient code=POCGLUC) critically ill, the [place] Accu-Chek InformII metershould not be used for Glucose determinations.Draw a venous Glucose and send to the Main Lab for Analysis. CBC with [id number] 06:09:00 Test Item Value Reference Range Comments [...] Lymph Abs (test code=ALYMPH) 3.5 K/cumm 0.5-4.6 Foster Abs (test code=AMONO) 1.0 K/cumm 0.0-1.2 Eos Abs (test code=AEOS) 0.19 K/cumm 0.00-0.74 Baso Abs (test code=ABASO) 0.1 K/cumm 0.00-0.21 Microcytosis (test code=MICRO) Slight Comprehensive Metabolic [id number] 06:00:00 Test Item Value Reference Range Comments [...] race is not provided, and the patient isAfrican-Mold[place], multiply by 1.212. If sex is not provided, and thepatient is female, multiply by 0.742. Results for patients <18 years ofage have not been validated by the MDRD study and should be interpretedwith caution.eGFR Result Interpretation:eGFR > or=60 is in the Normal RangeeGFR < 60 may mean kidney diseaseeGFR < 15 may mean kidney failureRanges recommended by the National Kidney Foundation,http://nkdep.nih .gov Magnesium, [id number] 06:00:00 Test Item Value Reference Range Comments Magnesium (test code=MG) 2.2 mg/dL 1.7-2.5 [id number] 06:00:00 Test Item Value Reference Range Comments Phosphorus (test code=PO4) 2.8 mg/dL 2.70-4.50 POC Glucose, [id number] 20:44:00 Test Item Value Reference Range Comments POC Glucose (test 199 mg/dL 70-115 If you consider your patient code=POCGLUC) critically ill, the [place] Accu-Chek InformII metershould not be used for Glucose determinations.Draw a venous Glucose and send to the Main Lab for Analysis. POC Glucose, [id number] 16:28:00 Test Item Value Reference Range Comments POC Glucose (test 242 mg/dL 70-115 Notify RN or MDIf you consider code=POCGLUC) your patient critically ill, the [place] Accu-Chek InformII metershould not be used for Glucose determinations.Draw a venous Glucose and send to the Main Lab for Analysis. POC Glucose, [id number] 13:37:00 Test Item Value Reference Range Comments POC Glucose (test 131 mg/dL 70-115 If you consider your patient code=POCGLUC) critically ill, the [place] Accu-Chek InformII metershould not be used for Glucose determinations.Draw a venous Glucose and send to the Main Lab for Analysis. POC Glucose, [id number] 12:14:00 Test Item Value Reference Range Comments POC Glucose (test 100 mg/dL 70-115 If you consider your patient code=POCGLUC) critically ill, the [place] Accu-Chek InformII metershould not be used for Glucose determinations.Draw a venous Glucose and send to the Main Lab for Analysis. POC Glucose, [id number] 07:30:00 Test Item Value Reference Range Comments POC Glucose (test 123 mg/dL 70-115 If you consider your patient code=POCGLUC) critically ill, the [place] Accu-Chek InformII metershould not be used for Glucose determinations.Draw a venous Glucose and send to the Main Lab for Analysis. Basic Metabolic [id number] 06:05:00 Test Item Value Reference Range Comments [...] race is not provided, and the patient isAfrican-Moldovan, multiply by 1.212. If sex is not [...] the National Kidney Foundation,http://nkdep.nih .gov CBC with [id number] 05:44:00 Test Item Value Reference Range Comments [...] Lymph Abs (test code=ALYMPH) 4.8 K/cumm 0.5-4.6 Foster Abs (test code=AMONO) 0.8 K/cumm 0.0-1.2 Eos Abs (test code=AEOS) 0.34 K/cumm 0.00-0.74 Baso Abs (test code=ABASO) 0.1 K/cumm 0.00-0.21 POC Glucose, [id number] 20:29:00 Test Item Value Reference Range Comments POC Glucose (test 152 mg/dL 70-115 If you consider your patient code=POCGLUC) critically ill, the [place] Accu-Chek InformII metershould not be used for Glucose determinations.Draw a venous Glucose and send to the Main Lab for Analysis. Antibody Screen - [id number] 17:58:00 Test Item Value Reference Range Comments Antibody Screen (test code=ABSCR) Negative Blood Type and [id number] 17:44:00 Test Item Value Reference Range Comments ABO type (test code=ABO) A Rh Type (test code=RH) Positive POC Glucose, [id number] 16:09:00 Test Item Value Reference Range Comments POC Glucose (test 192 mg/dL 70-115 If you consider your patient code=POCGLUC) critically ill, the [place] Accu-Chek InformII metershould not be used for Glucose determinations.Draw a venous Glucose and send to the Main Lab for Analysis. POC Glucose, [id number] 12:11:00 Test Item Value Reference Range Comments POC Glucose (test 249 mg/dL 70-115 If you consider your patient code=POCGLUC) critically ill, the [place] Accu-Chek InformII metershould not be used for Glucose determinations.Draw a venous Glucose and send to the Main Lab for Analysis. 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 Limited exam. Thedorsalis pedis arteries are not imaged.2. Abnormal monophasic waveform in the right posterior tibial artery.3. Otherwise unremarkable exam.Location: R16CBC with [id number] 08:22:00 Test Item Value Reference Range Comments [...] Lymph Abs (test code=ALYMPH) 3.6 K/cumm 0.5-4.6 Foster Abs (test code=AMONO) 0.6 K/cumm 0.0-1.2 Eos Abs (test code=AEOS) 0.37 K/cumm 0.00-0.74 Baso Abs (test code=ABASO) 0.1 K/cumm 0.00-0.21 Basic Metabolic [id number] 08:03:00 Test Item Value Reference Range Comments [...] race is not provided, and the patient isAfrican-Moldovan, multiply by 1.212. If sex is not [...] the National Kidney Foundation,http://nkdep.nih .gov POC Glucose, [id number] 07:30:00 Test Item Value Reference Range Comments POC Glucose (test 110 mg/dL 70-115 If you consider your patient code=POCGLUC) critically ill, the [place] Accu-Chek InformII metershould not be used for Glucose determinations.Draw a venous Glucose and send to the Main Lab for Analysis. POC Glucose, [id number] 19:57:00 Test Item Value Reference Range Comments POC Glucose (test 124 mg/dL 70-115 If you consider your patient code=POCGLUC) critically ill, the [place] Accu-Chek InformII metershould not be used for Glucose determinations.Draw a venous Glucose and send to the Main Lab for Analysis. POC Glucose, [id number] 16:10:00 Test Item Value Reference Range Comments POC Glucose (test 114 mg/dL 70-115 Notify RN or MDIf you consider code=POCGLUC) your patient critically ill, the [place] Accu-Chek InformII metershould not be used for Glucose determinations.Draw a venous Glucose and send to the Main Lab for Analysis. POC Glucose, [id number] 11:18:00 Test Item Value Reference Range Comments POC Glucose (test 203 mg/dL 70-115 Notify RN or MDIf you consider code=POCGLUC) your patient critically ill, the [facility] Accu-Chek InformII metershould not be used for Glucose determinations.Draw a venous Glucose and send to the Main Lab for Analysis. Culture, Wound [id number] 09:58:00Specimen: FootCollected: 2016 17:00 Status: Final Last [...] Streptococcus Beta Hemolytic Streptococcus Group GPOC Glucose, [id number] 07:23:00 Test Item Value Reference Range Comments POC Glucose (test 197 mg/dL 70-115 Notify RN or MDIf you consider code=POCGLUC) your patient critically ill, the [facility] Accu-Chek InformII metershould not be used for Glucose determinations.Draw a venous Glucose and send to the Main Lab for Analysis. POC Glucose, [id number] 16:09:00 Test Item Value Reference Range Comments POC Glucose (test 194 mg/dL 70-115 If you consider your patient code=POCGLUC) critically ill, the [place] Accu-Chek InformII metershould not be used for Glucose determinations.Draw a venous Glucose and send to the Main Lab for Analysis. POC Glucose, [id number] 11:33:00 Test Item Value Reference Range Comments POC Glucose (test 193 mg/dL 70-115 If you consider your patient code=POCGLUC) critically ill, the [facility] Accu-Chek InformII metershould not be used for Glucose determinations.Draw a venous Glucose and send to the Main Lab for Analysis. MRI LWR EXTRM NON-JNT WO [id number] 08:18:56EXAM: MRI right foot without contrastLocation: [id number]: History of amputation, rule out osteomyelitisCOMPARISON: Left [...] stump.3. Post amputation changes as described.POC Glucose, [id number] 07:15:00 Test Item Value Reference Range Comments POC Glucose (test 140 mg/dL 70-115 If you consider your patient code=POCGLUC) critically ill, the [facility] Accu-Chek InformII metershould not be used for Glucose determinations.Draw a venous Glucose and send to the Main Lab for Analysis. Sed Rate ESR ([place])2017-07-05 06:40:00 Test Item Value Reference Range Comments ESR (test code=HESR) 54 mm/Hr 0-9 C-Reactive Protein, [id number] 05:41:00 Test Item Value Reference Range Comments CRP (test code=CRP) 34.7 mg/L 0.0-5.0 POC Glucose, [id number] 21:22:00 Test Item Value Reference Range Comments POC Glucose (test 141 mg/dL 70-115 If you consider your patient code=POCGLUC) critically ill, the [place] Accu-Chek InformII metershould not be used for Glucose determinations.Draw a venous Glucose and send to the Main Lab for Analysis. POC Glucose, [id number] 16:09:00 Test Item Value Reference Range Comments POC Glucose (test 156 mg/dL 70-115 If you consider your patient code=POCGLUC) critically ill, the [place] Accu-Chek InformII metershould not be used for Glucose determinations.Draw a venous Glucose and send to the Main Lab for Analysis. POC Glucose, [id number] 12:05:00 Test Item Value Reference Range Comments POC Glucose (test 170 mg/dL 70-115 If you consider your patient code=POCGLUC) critically ill, the [place] Accu-Chek InformII metershould not be used for Glucose determinations.Draw a venous Glucose and send to the Main Lab for Analysis. XR FOOT [id number] 08:56:55XR FOOT 2V-LEFTLOCATION: [id number]:left foot ulcer COMPARISON: None.DISCUSSION:Frontal and lateral radiographs [...] stump.2. No definite acute osseous abnormalities.XR FOOT [id number] 08:53:30XR FOOT 2V- RIGHTLOCATION: [id number]:right foot stump ulcer COMPARISON: None.DISCUSSION:Frontal and lateral radiographs of the right foot were obtained. Amputation changes at the proximal metatarsals are noted.No definite suspicious focal osseous destruction or periosteal reactionis seen.Otherwise, no acute fracture or dislocation is seen.The joint spaces are grossly preserved.IMPRESSION:1. 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 No definite acute osseous abnormalities.POC Glucose, [id number] 07:50:00 Test Item Value Reference Range Comments POC Glucose (test 139 mg/dL 70-115 If you consider your patient code=POCGLUC) critically ill, the [facility] Accu-Chek InformII metershould not be used for Glucose determinations.Draw a venous Glucose and send to the Main Lab for Analysis. CBC with [id number] 06:19:00 Test Item Value Reference Range Comments [...] Lymph Abs (test code=ALYMPH) 2.7 K/cumm 0.5-4.6 Foster Abs (test code=AMONO) 0.6 K/cumm 0.0-1.2 Eos Abs (test code=AEOS) 0.32 K/cumm 0.00-0.74 Baso Abs (test code=ABASO) 0.1 K/cumm 0.00-0.21 Lipid [id number] 06:15:00 Test Item Value Reference Range Comments Cholesterol (test 133 mg/dL 0-200 code=CHOL) Triglycerides (test 164 mg/dL 9-200 code=TRIG) HDL (test code=HDL) 31 mg/dL 40-60 Chol/HDL (test 4.3 Ratio 0.0-5.0 code=CHOLPHDL) LDL, Calculated (test 69 0-130 (NOTE)RISK OF HEART code=LDLC) DISEASEPublished by [place] Heart AssociationAnalyte Optimal Boderline Increased RiskCHOL <200 200-239 >240TRIG <150 150-199 >200HDL Male: >60 <40HDL Female: >60 <50LDL <100 130-159 >160LDL NEAR OPTIMAL IS 100-129 VLDL (test code=VLDL) 33 mg/dL 5-40 LDL/HDL (test code=LDLPHDL) 2 POC Glucose, [id number] 17:14:00 Test Item Value Reference Range Comments POC Glucose (test 129 mg/dL 70-115 If you consider your patient code=POCGLUC) critically ill, the [facility] Accu-Chek InformII metershould not be used for Glucose determinations.Draw a venous Glucose and send to the Main Lab for Analysis. RPR, [id number] 12:26:00 Test Item Value Reference Range Comments RPR (test code=RPR) Non-Reactive Non-Reactive POC Glucose, [id number] 12:05:00 Test Item Value Reference Range Comments POC Glucose (test 173 mg/dL 70-115 If you consider your patient code=POCGLUC) critically ill, the [facility] Accu-Chek InformII metershould not be used for Glucose determinations.Draw a venous Glucose and send to the Main Lab for Analysis. POC Glucose, [id number] 07:57:00 Test Item Value Reference Range Comments POC Glucose (test 144 mg/dL 70-115 If you consider your patient code=POCGLUC) critically ill, the [place] Accu-Chek InformII metershould not be used for Glucose determinations.Draw a venous Glucose and send to the Main Lab for Analysis. POC Glucose, [id number] 06:19:00 Test Item Value Reference Range Comments [...] TSH (test code=TSH) 2.08 mIU/mL 0.270-4.200 Lipid [id number] 23:52:00 Test Item Value Reference Range Comments Cholesterol (test 171 mg/dL 0-200 code=CHOL) Triglycerides (test 171 mg/dL 9-200 code=TRIG) HDL (test code=HDL) 37 mg/dL 40-60 Chol/HDL (test 4.6 Ratio 0.0-5.0 code=CHOLPHDL) LDL, Calculated (test 100 0-130 (NOTE)RISK OF HEART code=LDLC) DISEASEPublished by [place] Heart AssociationAnalyte Optimal Boderline Increased RiskCHOL <200 200-239 >240TRIG <150 150-199 >200HDL Male: >60 <40HDL Female: >60 <50LDL <100 130-159 >160LDL NEAR OPTIMAL IS 100-129 VLDL (test code=VLDL) 34 mg/dL 5-40 LDL/HDL (test code=LDLPHDL) 3 POC Glucose, [id number] 20:03:00 Test Item Value Reference Range Comments POC Glucose (test 221 mg/dL 70-115 If you consider your patient code=POCGLUC) critically ill, the [place] Accu-Chek InformII metershould not be used for Glucose determinations.Draw a venous Glucose and send to the Main Lab for Analysis. POC Glucose, [id number] 16:47:00 Test Item Value Reference Range Comments POC Glucose (test 304 mg/dL 70-115 If you consider your patient code=POCGLUC) critically ill, the [place] Accu-Chek InformII metershould not be used for Glucose determinations.Draw a venous Glucose and send to the Main Lab for Analysis. POC Glucose, [id number] 15:20:00 Test Item Value Reference Range Comments POC Glucose (test 368 mg/dL 70-115 If you consider your patient code=POCGLUC) critically ill, the [place] Accu-Chek InformII metershould not be used for Glucose determinations.Draw a venous Glucose and send to the Main Lab for Analysis. [id number] 08:27:00 Test Item Value Reference Range Comments [...] Urine (test <0.01 g/dL 0.00-0.01 code=ETOHU) Urinalysis [id number] 07:59:00 Test Item Value Reference Range Comments Color (test code=COLOR) Yellow Yellow,Straw,Pl yellow Clarity (test code=CLAR) Clear Clear Specific [place] (test code=SPGR) 1.026 1.001-1.035 pH (test code=PH) [...] Bacteria (test code=BACT) Few /HPF POC Glucose, [id number] 07:23:00 Test Item Value Reference Range Comments POC Glucose (test 174 mg/dL 70-115 If you consider your patient code=POCGLUC) critically ill, the [place] Accu-Chek InformII metershould not be used for Glucose determinations.Draw a venous Glucose and send to the Main Lab for Analysis. [id number] 06:52:00 Test Item Value Reference Range Comments Acetone [Serum] (test code=ACETONE) Negative Negative Comprehensive Metabolic [id number] 06:19:00 Test Item Value Reference Range Comments [...] race is not provided, and the patient isAfrican-Mold[place], multiply by 1.212. If sex is not [...] the National Kidney Foundation,http://nkdep.nih .gov CBC with [id number] 06:00:00 Test Item Value Reference Range Comments [...] Lymph Abs (test code=ALYMPH) 3.1 K/cumm 0.5-4.6 Foster Abs (test code=AMONO) 0.9 K/cumm 0.0-1.2 Eos Abs (test code=AEOS) 0.29 K/cumm 0.00-0.74 Baso Abs (test code=ABASO) 0.1 K/cumm 0.00-0.21 POC Glucose, [id number] 05:52:00 Test Item Value Reference Range Comments POC Glucose (test 342 mg/dL 70-115 If you consider your patient code=POCGLUC) critically ill, the [place] Accu-Chek InformII metershould not be used for Glucose determinations.Draw a venous Glucose and send to the Main Lab for Analysis.
[2019-04-07 12:10] LABS: Absolute Lymphocytes (CBC) 2.8 K/uL (0.7-4.9); Basophils % 0.8 % (0-1.3); Hematocrit 35.8 % (39.6-49.0); Lymphocytes % 26.3 % (15.3-44.8); MPV 7.8 fL (7.6-11.3); RBC Red Blood Cell Count 4.75 M/uL (4.33-5.43)
[2019-04-07] MEDS ORDERED: HYDROCODONE/APAP 5/325 MG TAB ONE (12:18)
[2019-04-07] MEDS ORDERED: NA CHLORIDE 0.9% 1,000 ML ONE (12:19)
[2019-04-07] MEDS ORDERED: INSULIN -REGULAR HUMAN 50 UNIT/0.5 ML ML ONE (12:19)
[2019-04-07 12:22] LABS: BUN Blood Urea Nitrogen 19 mg/dL (7-18); Bicarbonate 27 mmol/L (21-32); Glucose Level 370 mg/dL (74-106); Potassium 3.5 mmol/L (3.5-5.1); Sodium Level 131 mmol/L (136-145)
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
[2019-04-07 14:14] VITALS: O2SAT 99
[2019-04-07 14:15] VITALS: TEMP 98
[2019-04-07 14:17] VITALS: BP 127/91
== END 2019-04-07 13:46 | disposition home or self-care (01) ==
LOC: ER 11:04
DX: E11.65 Type 2 diabetes mellitus with hyperglycemia (principal); F31.9 Bipolar disorder, unspecified; E11.9 Type 2 diabetes mellitus without complications; F20.9 Schizophrenia, unspecified; Z88.1 Allergy status to other antibiotic agents; Z88.5 Allergy status to narcotic agent; Z79.4 Long term (current) use of insulin
CPT/HCPCS: 96361; 85025; 80048; 36415; 82010; 82962 ×2; 84145; 96360; 96372; 99284; J7030

== ENCOUNTER 2019-04-12 15:09 | Inpatient (IN) | payer OTHER ==
--- OUTSIDE RECORDS SUMMARY | 2019-04-12 15:11 | XMS REPORT | Clinical Summary ---
:1985 Author Organization [facility] Address [address] [place] [address] Care Team Providers Name Role Phone Asked, [...] Anemia, unspecified type; MD Kole Chronic hypertension; Koyd Steiner Controlled type 2 diabetes mellitus with other specified complication, with long-term current use of insulin (HCC); MD Bhavik Severe dehydration; Hypoalbuminemia 11/12/2018 Travel after 04/11/2018 Immunizations Name Dates Previously Given Next Due [...] Taken Blood Pressure 120/82 11/18/2018 4:19 PM TRACTOR EXPERT Pulse 134 11/18/2018 4:19 PM TRACTOR EXPERT Temperature 36 C (96.8 F) 11/18/2018 4:19 PM TRACTOR EXPERT Respiratory Rate 20 11/18/2018 4:19 PM TRACTOR EXPERT Oxygen Saturation 97% 11/18/2018 4:19 PM TRACTOR EXPERT Inhaled Oxygen Concentration - - Weight 95.7 kg (211 lb) 11/13/2018 7:03 AM TRACTOR EXPERT Height 175.3 cm (5' 9") 11/12/2018 7:56 PM TRACTOR EXPERT Body Mass Index 31.16 11/12/2018 7:56 PM TRACTOR EXPERT Plan of Treatment Health Maintenance Due Date Last Done Comments DIABETIC RETINAL EYE EXAM 1985 DIABETIC FOOT EXAM 1994 URINE MICROALBUMIN 1994 INFLUENZA VACCINE 04/15/2019 11/13/2018 Procedures Procedure Name Priority Date/Time Associated Comments Diagnosis POC GLUCOSE Routine 11/18/2018 4:35 Results for this PM [facility]PERT procedure are in the results section. POC GLUCOSE Routine 11/18/2018 12:19 Results for this PM [facility] procedure are in the results section. POC GLUCOSE Routine 11/18/2018 8:30 Results for this AM [facility]ERT procedure are in the results section. POC GLUCOSE Routine 11/17/2018 9:02 Results for this PM [facility] EXPERT procedure are in the results section. POC GLUCOSE Routine 11/17/2018 5:54 Results for this PM [facility] EXPERT procedure are in the results section. POC GLUCOSE Routine 11/17/2018 12:26 Results for this PM [facility] EXPERT procedure are in the results section. POC GLUCOSE Routine 11/17/2018 7:45 Results for this AM TRA[facility] EXPERT procedure are in the results section. POC GLUCOSE Routine 11/17/2018 1:54 Results for this AM [facility] EXPERT procedure are in the results section. POC GLUCOSE Routine 11/16/2018 8:55 Results for this PM [facility] EXPERT procedure are in the results section. CLOSTRIDIUM DIFFICILE Routine 11/16/2018 8:00 Results for this TOXIN PM [facility]PERT procedure are in the results section. POC GLUCOSE Routine 11/16/2018 5:32 Results for this PM [facility] procedure are in the results section. POC GLUCOSE Routine 11/16/2018 12:05 Results for this PM [facility] EXPERT procedure are in the results section. POC GLUCOSE Routine 11/16/2018 8:32 Results for this AM [facility] EXPERT procedure are in the results section. POC GLUCOSE Routine 11/15/2018 9:02 Results for this PM [facility] EXP[facility] procedure are in the results section. POC GLUCOSE Routine 11/15/2018 4:44 Results for this PM [facility] EXP[facility] procedure are in the results section. POC GLUCOSE Routine 11/15/2018 12:07 Results for this PM [facility] EXPERT procedure are in the results section. HEMOGLOBIN A1C Routine 11/15/2018 10:03 Results for this AM TRA[facility] EXPERT procedure are in the results section. POC GLUCOSE Routine 11/15/2018 10:01 Results for this AM TRA[facility] EXPERT procedure are in the results section. POC GLUCOSE Routine 11/15/2018 7:58 Results for this AM [facility] procedure are in the results section. ESTIMATED GFR Routine 11/15/2018 5:10 Results for this AM [facility] EXPERT procedure are in the results section. BASIC METABOLIC PANEL Routine 11/15/2018 5:10 Results for this AM [facility] procedure are in the results section. HC COMPLETE BLD COUNT Routine 11/15/2018 5:10 Results for this W/AUTO DIFF AM TRACTOR EXPERT procedure are in the results section. POC GLUCOSE Routine 11/15/2018 12:29 Results for this AM [facility] EXP[facility] procedure are in the results section. POC GLUCOSE Routine 11/14/2018 9:38 Results for this PM [facility] EXP[facility] procedure are in the results section. POC GLUCOSE Routine 11/14/2018 6:32 Results for this PM [facility] procedure are in the results section. POC GLUCOSE Routine 11/14/2018 3:53 Results for this PM [facility] procedure are in the results section. POC GLUCOSE Routine 11/14/2018 11:57 Results for this AM [facility] EXP[facility] procedure are in the results section. POC GLUCOSE Routine 11/14/2018 7:14 Results for this AM [facility] EXP[facility] procedure are in the results section. POC GLUCOSE Routine 11/14/2018 6:35 Results for this AM [facility] procedure are in the results section. HC COMPLETE BLD COUNT Routine 11/14/2018 4:45 Results for this W/AUTO DIFF AM [facility] procedure are in the results section. ESTIMATED GFR Routine 11/14/2018 4:00 Results for this AM [facility] procedure are in the results section. BASIC METABOLIC PANEL Routine 11/14/2018 4:00 Results for this AM [facility] procedure are in the results section. POC GLUCOSE Routine 11/14/2018 3:05 Results for this AM [facility] procedure are in the results section. POC GLUCOSE Routine 11/13/2018 8:54 Results for this PM [facility] procedure are in the results section. POC GLUCOSE Routine 11/13/2018 5:31 Results for this PM [facility] procedure are in the results section. POC GLUCOSE Routine 11/13/2018 12:13 Results for this PM [facility] procedure are in the results section. ECHOCARDIOGRAM 2D Routine 11/13/2018 11:12 Results for this COMPLETE W MMODE AM TRACTOR EXPERT procedure are in SPECTRAL COLOR DOPPLER the results (50505) section. POC GLUCOSE Routine 11/13/2018 7:17 Results for this AM [facility] procedure are in the results section. ESTIMATED GFR Routine 11/13/2018 6:06 Results for this AM TRA[facility]PERT procedure are in the results section. BASIC METABOLIC PANEL Routine 11/13/2018 6:06 Results for this AM [facility] procedure are in the results section. HC COMPLETE BLD COUNT Routine 11/13/2018 6:06 Results for this W/AUTO DIFF AM TRA[facility] EXPERT procedure are in the results section. POC GLUCOSE Routine 11/12/2018 10:19 Results for this PM [facility] EXPERT procedure are in the results section. POC GLUCOSE Routine 11/12/2018 6:40 Results for this PM [facility] procedure are in the results section. VITAMIN B12 LEVEL Routine 11/12/2018 12:40 Results for this PM [facility] procedure are in the results section. TOTAL IRON BINDING Routine 11/12/2018 12:40 Results for this CAPACITY PM [facility] procedure are in the results section. FOLATE LEVEL Routine 11/12/2018 12:40 Results for this PM [facility] procedure are in the results section. FERRITIN LEVEL Routine 11/12/2018 12:40 Results for this PM [facility] procedure are in the results section. BLOOD CULTURE, AEROBIC Routine 11/12/2018 7:40 Results for this & ANAEROBIC AM TRA[facility]PERT procedure are in the results section. CREATINE KINASE, TOTAL Timed 11/12/2018 7:38 Results for this (CPK) AM TRACTOR EXPERT procedure are in the results section. RESPIRATORY PATHOGEN Routine 11/12/2018 7:38 Results for this PANEL AM [facility]PERT procedure are in the results section. BLOOD CULTURE, AEROBIC Routine 11/12/2018 7:38 Results for this & ANAEROBIC AM [facility]PERT procedure are in the results section. ECG 12-LEAD STAT 11/12/2018 7:37 AM TRACTOR EXPERT Procedure Note - Kody Steiner MD - 11/12/2018 4:14 AM TRACTOR EXPERT Emergency Department Provider Note Location: [facility] MAIN ED Patient ID: Raymundo Mcdowell is [...] pressure medication today. History provided by: Patient land conservation specialist used: No Illness Severity: Severe Onset quality: Sudden Duration: SANITATION OFFICER. Timing: Constant Progression: Worsening Chronicity: New Context: [...] Surgical History Dental Past Family History Reviewed; il Past Social History No drugs tob etoh; [...] ED Course as of Nov 12 735 [facility] Nov 12, 2018 0535 Discussed case [...] ED Physician in the absence of a art history professor: yes Previous ECG: Previous ECG: Compared to [...] for further evaluation, case discussed with doctor caption writer and pt accepted for admission. Labs ordered, reviewed, and interpreted by me. Pulse ox reviewed by me and interpreted as normal. driver recruiter reviewed by me and interpreted as normal. ED Attestations Scribe Attestation: This document is recorded by Martha Sigala acting as a scribe under the direction and presence of Diamond Allen MD. 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 Prior records sought & summarized confirming history of: No past medical history on file. At least 1 MD bedside reassessment occurred to update patient, determine response to treatment & recheck the patent s wellbeing. INTERPRETATIONS (additional)/Amount and/or Complexity of Data Reviewed: I reviewed the Pulse Oximetry and it is wnl by my independent interpretation. I reviewed the car runner on the patient (nl rate; q wave; [...] flush 10 mL, 10 mL, intravenous, Q12H [facility], Diamond Allen MD sodium chloride 0.9% flush 10 mL, 10 mL, intravenous, PRN, Diamond Allen MD No current outpatient medications on file. Disposition: Admission Condition: Serious Patient Progress: Unchanged Risk of complications, morbidity, or mortality is: Presenting problems: high Diagnostic procedures: high Management options: high Kody Steiner MD 11/12/[address] ABDOMEN PELVIS WO STAT 11/12/2018 5:10 AM TRACTOR EXPERT Results for this CONTRAST procedure are in the results section. URINALYSIS SCREEN AND Routine 11/12/2018 5:00 AM TRACTOR EXPERT Results for this MICROSCOPY, WITH REFLEX TO procedure are in the CULTURE results section. URINE CULTURE Routine 11/12/2018 5:00 AM TRACTOR EXPERT XR CHEST 1 VW PORTABLE STAT 11/12/2018 4:59 AM TRACTOR EXPERT B NATRIURETIC PEPTIDE STAT 11/12/2018 4:15 AM TRACTOR EXPERT TROPONIN STAT 11/12/2018 4:15 AM TRACTOR EXPERT ESTIMATED GFR STAT 11/12/2018 4:15 AM TRACTOR EXPERT LACTIC ACID LEVEL STAT 11/12/2018 4:15 AM TRACTOR EXPERT LIPASE LEVEL STAT 11/12/2018 4:15 AM TRACTOR EXPERT COMPREHENSIVE METABOLIC STAT 11/12/2018 4:15 AM TRACTOR EXPERT Results for this PANEL procedure are in the results section. HC COMPLETE BLD COUNT W/AUTO STAT 11/12/2018 4:15 AM TRACTOR EXPERT Results for this DIFF procedure are in the results section. [place] CRITICAL CARE, E/M 30-74 Routine 11/12/2018 4:14 AM TRACTOR EXPERT Results for this MINUTES procedure are in the results section. ECG 12-LEAD STAT 11/12/2018 4:02 AM TRACTOR EXPERT after 04/11/2018 Results POC glucose (11/18/2018 4:35 PM TRACTOR EXPERT)Only the most recent of31 resultswithin the time period is included. POC glucose 252 (H) 65 - 99 mg/dL [place] Comment: H[facility]PITAL [facility] Notified RN Meter ID: [id number] Java User Interface Developer: Nikita Anderson Specimen Performing Organization Address City/[facility] [place] [facility] Phone Number [facility] DEPARTMENT OF PATHOLOGY AND [address] [place] [address] C difficile toxin (11/16/2018 8:00 PM TRACTOR EXPERT) Pathologist [facility] Clostridium Positive for C. difficile toxin (A) [facility] difficile toxin Comment: HOSPITAL Specimen Information Specimen Source: Stool Specimen Site: Nonpreserved Specimen Stool - Nonpreserved Performing Organization Address City/[facility] [place] [facility] Phone Number [facility] DEPARTMENT OF PATHOLOGY AND [address] [place] [address] Hemoglobin A1c (11/15/2018 10:03 AM TRACTOR EXPERT) Pathologist [facility] Hemoglobin A1C 13.6 (H) 4.0 - 5.6 % [facility] HbA1c cutoffs for diagnosing diabetes: 4.0% - 5.6%=normal 5.7% - 6.4%=increased risk for diabetes (prediabetes) >=6.5%=diabetes Goals for glycemic control (ADA 2016) < 7.0%Target for non adults with diabetes. More or less stringent targets may be appropriate for individual patients. <7.5% Target for Children and adolescents with type 1 diabetes. Specimen Blood Performing Organization Address City/State/Zipcode Phone Number [facility] DEPARTMENT OF PATHOLOGY AND [address] [place] [phone] [place] [phone] Estimated GFR (11/15/2018 5:10 AM TRACTOR EXPERT)Only the most recent of4 resultswithin the time period is included. Pathologist [facility] Estimated GFR >=90 mL/min/1.73 [facility] Comment: m2 HOSPITAL CatergoryUnitsInterpretation G1 >=90 Normal or high G2 60-89Mildly decreased [id number] to moderately decreased E3o54-99Cwnacbhsgc to severely decreased G4 15-29Severely decreased G5 <15Kidney failure The eGFR was calculated using the Chronic Kidney Disease Epidemiology Collaboration (CKD-EPI) equation. Interpretation is based on recommendations of the National Kidney Foundation-Kidney Disease Outcomes Quality Initiative (NKF-KDOQI) published in 2014. Specimen Plasma specimen Performing Organization Address City/State/Zipcode Phone Number [facility] DEPARTMENT OF PATHOLOGY AND [address] [place] [phone] [place] [address] CBC with platelet and differential (11/15/2018 5:10 AM TRACTOR EXPERT)Only the most recent of4 resultswithin the time period is included. [facility] WBC 9.57 4.50 - 11.00 [facility] k/uL [facility] RBC 5.25 4.40 - 6.00 [facility] m/uL [facility] HGB 10.7 (L) 14.0 - 18.0 [facility] g/dL [facility] HCT 36.7 (L) 41.0 - 51.0 % [facility] MCV 69.9 (L) 82.0 - 100.0 [facility] MCH 20.4 (L) 27.0 - 34.0 pg [facility] MCHC 29.2 (L) 31.0 - 37.0 [facility] RDW - SD 44.4 37.0 - 55.0 fL [facility] MPV 9.7 8.8 - 13.2 fL [facility] Platelet count 330 150 - 400 k/uL [facility] Nucleated RBC 0.00 /100 WBC [facility] Neutrophils 57.7 39.0 - 69.0 % [facility] Lymphocytes 31.0 25.0 - 45.0 % [facility] Monocytes 8.0 0.0 - 10.0 % [facility] Eosinophils 2.0 0.0 - 5.0 % [facility] Basophils 0.8 0.0 - 1.0 % [facility] Immature granulocytes 0.5Comment: 0.0 - 1.0 % [facility] "[facility] granulocytes" (promyelocytes , myelocytes, metamyelocytes ) Specimen Blood Performing Organization Address City/[facility] [place] [facility] Cent[facility]ode Phone Number [facility] DEPARTMENT OF PATHOLOGY AND [address] [place] [address] Basic metabolic panel (11/15/2018 5:10 AM TRACTOR EXPERT)Only the most recent of3 resultswithin the time period is included. Sodium 134 (L) 135 - 148 mEq/L [facility] Potassium 3.9 3.5 - 5.0 mEq/L [facility] Chloride 102 98 - 112 mEq/L [facility] CO2 20 (L) 24 - 31 mEq/L [facility] Anion gap 12@ANIO 7 - 15 mEq/L [facility] BUN 11 6 - 20 mg/dL [facility] Creatinine 0.96 0.70 - 1.20 mg/dL [facility] Glucose 364 (H) 65 - 99 mg/dL [facility] Calcium 8.8 8.3 - 10.2 mg/dL [facility] Specimen Plasma specimen Performing Organization Address City/[facility] [place] [facility] Phone Number [facility] DEPARTMENT OF PATHOLOGY AND [address] [place] [address] Echocardiogram complete w contrast and 3D if needed (11/13/2018 11:12 AM TRACTOR EXPERT) Specimen Narrative Performed At [facility] Echocardiography Report [address] [place] [address] Pat.Name:RAYMUNDO MCDOWELL Airam.ID:[id number] .Date: 11/13/2018Refharish.MD:NOY CASSIDY MD Exam Time: 10:33:00 AM Study Type:Routine Echo Height:69inWeight: 211lb BSA: 2.12 m2 DOBAge:1985,33Y Sex: MALEBP:122/80 Sonogrphr: Aide Pal RDCS, RVSPat. Stat.:Inpatient Room:[facility] Study Status:Final Echo Event ID:[id number] Order ID:[id number] Reason for Study:Syncope without cardiac evidence Procedures:2D [...] PA systolic pressure. MEASUREMENTS: 2D Parasternal [place] Ds4 cmLVPWd1.1 cm LVOT 2.3 cmAo An2.3 cm LVIDd4.9 cmIndex2.3 cm/m Ao Rtd 3.6 cm Index1.7 cm/m LVIDs3.1 cm LV Vqao516.6 g(122-174) LV%fs 36.3 % LVM Index 89 g/m2 IVSd 1 cmRWT0.4 LA Sng Plane LA Area 20.7 cm2(8.8-23.4) LA Vol60.5 ml Index28.5 ml/m LA LngAx 5.7 cm RA Sng Plane RA Area 13.2 cm2(8.3-19.5) RA Vol30.2 ml Index14.2 ml/m RA LngAx 5.4 cm DOPPLER LVOT Stroke Vol LVOT 2.3 cmLVOT CO7.7 l/min LVOT TVI19.2 cmLVOT CI3.6 l/m/m2 LVOT [id number] bpm LVOT SV 79.7 ml Signed 11/13/2018 12:07 PM Tone Orellana MD Procedure Note Interface, Radiology Results In - 11/13/2018 12:07 PM TRACTOR EXPERT Echocardiography Report [id number]Name: RAYMUNDO MCDOWELL Pat.ID: [id number] .Date: 11/13/2018 Refer.MD: NOY CASSIDY MD Exam Time: 10:33:00 AM Study Type:Routine Echo Height: 69in Weight: 211lb BSA: 2.12 m2 Age: 6 1985,33Y Sex: MALE BP: 122/80 Sonogrphr: Aide Pal RDCS, RVSPat. Stat.:Inpatient Room: [facility] Study Status:Final Echo Event ID:[id number] Order ID: [id number] Reason for Study:Syncope without cardiac evidence Procedures:2D [...] PA systolic pressure. MEASUREMENTS: 2D Parasternal [place] Ds 4 cm LVPWd 1.1 cm [...] PM Tone Orellana MD Performing Organization Address City/[facility]/Zipcode Phone Number [facility] [address] [place] [address] Total iron binding capacity (11/12/2018 12:40 PM TRACTOR EXPERT) Iron level 24 (L) 59 - 158 ug/dL [facility] Iron binding capacity 322 200 - 400 ug/dL [facility] % Saturation 7.5 (L) 20.0 - 40.0 % [facility] Specimen Plasma specimen Performing Organization Address [facility] [place] [facility] Centercode Phone Number [facility] DEPARTMENT OF PATHOLOGY AND [address] [place] [phone] [place] [address] Folate level (11/12/2018 12:40 PM TRACTOR EXPERT) Folate 14.9 4.8 - 24.2 ng/mL [facility] Specimen Serum Performing Organization Address [facility] [place] Phone Number [facility] DEPARTMENT OF PATHOLOGY AND [address] [place] [phone] [place] [address] Ferritin level (11/12/2018 12:40 PM TRACTOR EXPERT) Ferritin level <13 (A) 30 - 400 ng/mL [facility] Specimen Plasma specimen Performing Organization Address [facility] [place] Phone Number [facility] DEPARTMENT OF PATHOLOGY AND [address] [place] [phone] Vitamin B12 level (11/12/2018 12:40 PM TRACTOR EXPERT) Vitamin B12 307 211 - 946 [facility] Comment: pg/mL HOSPITAL Significant overlap exists between normal and deficiency states. However, most patients with deficiencies will have Serum B12 <200 pg/mL. Specimen Serum Performing Organization Address [facility] [place] [facility] Cent[facility]ode Phone Number [facility] DEPARTMENT OF PATHOLOGY AND [address] [place] [phone] [place] [phone] Blood culture, aerobic & anaerobic (11/12/2018 7:40 AM TRACTOR EXPERT)Only the most recent of2 resultswithin the time period is included. Pathologist [facility] Blood culture No growth after 5 days of incubation. [facility] isolate Comment: HOSPITAL Specimen Information Specimen Source: Blood Specimen Site: Arm, right Specimen Blood - Arm, right Performing Organization Address [facility] [place] [facility] Cent[facility]ode Phone Number [facility] DEPARTMENT OF PATHOLOGY AND [address] [place] [phone] [place] [phone] Respiratory pathogen panel (11/12/2018 7:38 AM TRACTOR EXPERT) [facility] Respiratory Negative for all pathogens tested: [place] pathogen panel Negative for Adenovirus MANDAEISM Negative for Coronavirus HKU1 [facility] Negative for Coronavirus NL63 Negative for Coronavirus [...] Specimen Nares - Left Performing Organization Address [facility] [place] [facility]ercosc Phone Number [facility] DEPARTMENT OF PATHOLOGY AND [address] [place] [address] Creatine kinase, total (CPK) (11/12/2018 7:38 AM TRACTOR EXPERT) [facility] Creatine kinase 27 (L) 39 - 308 U/L [facility] Specimen Plasma specimen Performing Organization Address [facility] [place] [facility] Centercode Phone Number [facility] DEPARTMENT OF PATHOLOGY AND [address] [place] [phone] Abdomen Pelvis Wo Contrast (11/12/2018 5:10 AM TRACTOR EXPERT) Specimen Narrative Performed At EXAMINATION:CT ABDOMEN PELVIS [...] bladder or outlet obstruction. Otherwise unremarkable exam. [facility]-[id number] Procedure Note Interface, Radiology Results Incoming - 11/12/2018 5:19 AM TRACTOR EXPERT EXAMINATION: CT ABDOMEN PELVIS WO CONTRAST CLINICAL [...] bladder or outlet obstruction. Otherwise unremarkable exam. [facility]-[id number] Performing Organization Address City/State/Zipcode Phone Number [facility] [address] [place] [address] Urinalysis screen and microscopy, with reflex to culture (11/12/2018 5:00 AM TRACTOR EXPERT) Specimen site Catheterized [facility] Color, UA Straw [facility] Appearance, UA Clear [facility] Specific gravity, UA 1.011 1.001 - 1.035 [facility] pH, UA 6.0 5.0 - 8.5 [facility] Protein, UA 1+ (A) Negative [facility] Glucose, UA 3+ (A) Negative [facility] Ketones, UA Negative Negative [facility] Bilirubin, UA Negative Negative [facility] Blood, UA Negative Negative [facility] Nitrite, UA Negative Negative [facility] Urobilinogen, UA <2.0 <2.0 [facility] Leukocyte esterase, Negative Negative [facility] Epithelial cells, UA <1 /HPF [facility] WBC, UA <1 0 - 1 /HPF [facility] RBC, UA 5 0 - 5 /HPF [facility] Bacteria, UA None seen None seen [facility] Yeast, UA None seen [facility] Yeast with None seen [facility] pseudohyphae, [facility] Hyaline casts, UA 1 /LPF [facility] Specimen Urine Performing Organization Address City/[facility] [place] [facility] Centercode Phone Number [facility] DEPARTMENT OF PATHOLOGY AND [address] [place] [phone] Urine culture (11/12/2018 5:00 AM TRACTOR EXPERT) Urine culture SEE COMMENTComment: [facility] Bacteriuria screen HOSPITAL negative. Specimen Performing Organization Address City/[facility] [place] [facility] Centercode Phone Number [facility] DEPARTMENT OF PATHOLOGY AND [address] [place] [phone] XR Chest 1 Vw Portable (11/12/2018 4:59 AM TRACTOR EXPERT) Specimen Narrative Performed At EXAMINATION:XR CHEST 1 VW PORTABLE [facility] CLINICAL HISTORY:hypotension COMPARISON:None IMPRESSION: Slight eventration of right hemidiaphragm. No consolidations, effusions, or pneumothorax. Cardiomediastinal silhouette is within normal limits. No acute osseous abnormalities. [facility]-[id number] Procedure Note Hm Interface, Radiology Results Incoming - 11/12/2018 5:11 AM TRACTOR EXPERT EXAMINATION: XR CHEST 1 VW PORTABLE CLINICAL HISTORY: hypotension COMPARISON: None IMPRESSION: Slight eventration of right hemidiaphragm. No consolidations, effusions, or pneumothorax. Cardiomediastinal silhouette is within normal limits. No acute osseous abnormalities. [facility]-[id number] Performing Organization Address City/State/Zipcode Phone Number [facility] [address] [place] [phone] Troponin (11/12/2018 4:15 AM TRACTOR EXPERT) Troponin <0.30 0.00 - 0.30 [facility] Comment: ng/mL HOSPITAL 0.30 - 1.49 ng/mlMay indicate increased risk of acute coronary syndrome. >=1.5 ng/mlConsistent with acute myocardial infarction. The diagnostic value of a single normal or non-diagnostic result is questionable.Serial samples at 2-6 hour intervals are required to rule out acute myocardial injury. Specimen Plasma specimen Performing Organization Address [facility] Phone Number [facility] DEPARTMENT OF PATHOLOGY AND [address] [place] [phone] [address] B natriuretic peptide (11/12/2018 4:15 AM TRACTOR EXPERT) BNP 17 0 - 100 pg/mL [facility] Specimen Performing Organization Address [facility] [place] [facility] Cent[facility]ode Phone Number [facility] DEPARTMENT OF PATHOLOGY AND [address] [place] [phone] Lipase level (11/12/2018 4:15 AM TRACTOR EXPERT) Lipase 21 13 - 60 U/L [facility] Specimen Plasma specimen Performing Organization Address City/[facility] [place] [facility] Cent[facility]ode Phone Number [facility] DEPARTMENT OF PATHOLOGY AND [address] [place] [phone] [address] Lactic acid level (11/12/2018 4:15 AM TRACTOR EXPERT) Lactic acid 2.2 0.5 - 2.2 mmol/L [facility] Specimen Plasma specimen Performing Organization Address [facility] [place] [facility] Cent[facility]ode Phone Number [facility] DEPARTMENT OF PATHOLOGY AND [address] [place] [phone] [address] Comprehensive metabolic panel (11/12/2018 4:15 AM TRACTOR EXPERT) Sodium 139 135 - 148 [facility] mEq/L [facility] Potassium 3.9 3.5 - 5.0 [facility] mEq/L [facility] Chloride 106 98 - 112 mEq/L [facility] CO2 24 24 - 31 mEq/L [facility] Anion gap 9@ANIO 7 - 15 mEq/L [facility] BUN 23 (H) 6 - 20 mg/dL [facility] Creatinine 1.40 (H) 0.70 - 1.20 [facility] mg/dL [facility] Glucose 212 (H) 65 - 99 mg/dL [facility] Calcium 8.4 8.3 - 10.2 [facility] mg/dL [facility] Protein 5.9 (L) 6.3 - 8.3 g/dL [facility] Comment: HOSPITAL 4.6-7.0 g/dL 1 week 4.4-7.6 g/dL 7 months-1year5.1-7.3 g/dL 1-2 years5.6-7.5 g/dL >3 years6.0-8.0 g/dL 18-150 6.3-8.3 g/dL Albumin 2.7 (L) 3.5 - 5.0 g/dL [facility] A/G ratio 0.8 0.7 - 3.8 [facility] Alkaline phosphatase 103 40 - 129 U/L [facility] AST 11 10 - 50 U/L [facility] ALT 10 5 - 50 U/L [facility] Total bilirubin <0.2 0.0 - 1.2 [facility] mg/dL [facility] Specimen Plasma specimen Performing Organization Address City/State/Zipcode Phone Number [facility] DEPARTMENT OF PATHOLOGY AND [address] [place] [phone] [facility] [address] [address] CRITICAL CARE (11/12/2018 4:14 AM TRACTOR EXPERT) Narrative Performed At Kody Steiner MD 11/12/20187:37 [...] charts ECG 12 lead (11/12/2018 4:02 AM TRACTOR EXPERT) Ventricular rate 72 [facility] Atrial rate 72 [facility] FL interval 120 [facility] QRSD interval 92 [...] At Performing Organization Address City/State/Zipcode Phone Number [facility] [place] [address] [place] [address] after 04/11/2018 Insurance Payer Benefit Plan / Subscriber ID Effective Dates Phone Address Type Group MEDICARE MEDICARE PART A xxxxxxxxxxx 2008-Present [place], [place] Medicare AND B MEDICAID MEDICAID xxxxxxxxx 2011-Present Medicaid Advance Directives Patient has advance care planning documents on file. For more information, please contact:Paddy Bowie[address] [place] [address]
--- OUTSIDE RECORDS SUMMARY | 2019-04-12 15:13 | XMS REPORT ---
:1985 [facility] Organization [facility] Address [address] [place] [address] [address] [place] [address] Care Team Providers Name Role Phone UNKNOWN, [...] Type Clinicians Facility Department ID 2017-12-16 Inpatient [facility] [id number] 09:23:00 2017-07-02 2017-07-07 Inpatient [facility] [id number] 14:57:00 22:44:00 [place] Results Test Description Test [...] the Main Lab for Analysis. Comprehensive Metabolic [id number] 07:08:00 Test Item Value Reference Range Comments [...] race is not provided, and the patient isAfrican-Thai, multiply by 1.212. If sex is not [...] the National Kidney Foundation,http://nkdep.nih .gov CBC with [id number] 06:48:00 Test Item Value Reference Range Comments [...] Lymph Abs (test code=ALYMPH) 4.5 K/cumm 0.5-4.6 Mcmullen Abs (test code=AMONO) 0.6 K/cumm 0.0-1.2 Eos Abs (test code=AEOS) 0.18 K/cumm 0.00-0.74 Baso Abs (test code=ABASO) 0.1 K/cumm 0.00-0.21 Microcytosis (test code=MICRO) Slight Hypochromic (test code=HYPO) Slight POC Glucose, [id number] 19:07:00 Test Item Value Reference Range Comments POC Glucose (test 227 mg/dL 70-115 If you consider your patient code=POCGLUC) critically ill, the [place] Accu-Chek InformII metershould not be used for Glucose determinations.Draw a venous Glucose and send to the Main Lab for Analysis. POC Glucose, [id number] 16:11:00 Test Item Value Reference Range Comments POC Glucose (test 266 mg/dL 70-115 If you consider your patient code=POCGLUC) critically ill, the [place] Accu-Chek InformII metershould not be used for Glucose determinations.Draw a venous Glucose and send to the Main Lab for Analysis. POC Glucose, [id number] 11:36:00 Test Item Value Reference Range Comments POC Glucose (test 69 mg/dL 70-115 If you consider your patient code=POCGLUC) critically ill, the [place] Accu-Chek InformII metershould not be used for Glucose determinations.Draw a venous Glucose and send to the Main Lab for Analysis. POC Glucose, [id number] 07:45:00 Test Item Value Reference Range Comments POC Glucose (test 234 mg/dL 70-115 If you consider your patient code=POCGLUC) critically ill, the [place] Accu-Chek InformII metershould not be used for Glucose determinations.Draw a venous Glucose and send to the Main Lab for Analysis. POC Glucose, [id number] 19:15:00 Test Item Value Reference Range Comments POC Glucose (test 148 mg/dL 70-115 If you consider your patient code=POCGLUC) critically ill, the [place] Accu-Chek InformII metershould not be used for Glucose determinations.Draw a venous Glucose and send to the Main Lab for Analysis. POC Glucose, [id number] 15:37:00 Test Item Value Reference Range Comments POC Glucose (test 133 mg/dL 70-115 If you consider your patient code=POCGLUC) critically ill, the [place] Accu-Chek InformII metershould not be used for Glucose determinations.Draw a venous Glucose and send to the Main Lab for Analysis. POC Glucose, [id number] 11:10:00 Test Item Value Reference Range Comments POC Glucose (test 203 mg/dL 70-115 Notify RN or MDIf you consider code=POCGLUC) your patient critically ill, the [place] Accu-Chek InformII metershould not be used for Glucose determinations.Draw a venous Glucose and send to the Main Lab for Analysis. POC Glucose, [id number] 07:29:00 Test Item Value Reference Range Comments POC Glucose (test 261 mg/dL 70-115 Notify RN or MDIf you consider code=POCGLUC) your patient critically ill, the [place] Accu-Chek InformII metershould not be used for Glucose determinations.Draw a venous Glucose and send to the Main Lab for Analysis. POC Glucose, [id number] 19:32:00 Test Item Value Reference Range Comments POC Glucose (test 226 mg/dL 70-115 If you consider your patient code=POCGLUC) critically ill, the [place] Accu-Chek InformII metershould not be used for Glucose determinations.Draw a venous Glucose and send to the Main Lab for Analysis. POC Glucose, [id number] 15:58:00 Test Item Value Reference Range Comments POC Glucose (test 138 mg/dL 70-115 Notify RN or MDIf you consider code=POCGLUC) your patient critically ill, the [place] Accu-Chek InformII metershould not be used for Glucose determinations.Draw a venous Glucose and send to the Main Lab for Analysis. POC Glucose, [id number] 11:48:00 Test Item Value Reference Range Comments POC Glucose (test 154 mg/dL 70-115 Notify RN or MDIf you consider code=POCGLUC) your patient critically ill, the [place] Accu-Chek InformII metershould not be used for Glucose determinations.Draw a venous Glucose and send to the Main Lab for Analysis. POC Glucose, [id number] 07:23:00 Test Item Value Reference Range Comments POC Glucose (test 131 mg/dL 70-115 Notify RN or MDIf you consider code=POCGLUC) your patient critically ill, the [place] Accu-Chek InformII metershould not be used for Glucose determinations.Draw a venous Glucose and send to the Main Lab for Analysis. POC Glucose, [id number] 19:38:00 Test Item Value Reference Range Comments POC Glucose (test 160 mg/dL 70-115 If you consider your patient code=POCGLUC) critically ill, the [place] Accu-Chek InformII metershould not be used for Glucose determinations.Draw a venous Glucose and send to the Main Lab for Analysis. POC Glucose, [id number] 17:27:00 Test Item Value Reference Range Comments POC Glucose (test 191 mg/dL 70-115 If you consider your patient code=POCGLUC) critically ill, the [place] Accu-Chek InformII metershould not be used for Glucose determinations.Draw a venous Glucose and send to the Main Lab for Analysis. POC Glucose, [id number] 14:19:00 Test Item Value Reference Range Comments POC Glucose (test 252 mg/dL 70-115 If you consider your patient code=POCGLUC) critically ill, the [place] Accu-Chek InformII metershould not be used for Glucose determinations.Draw a venous Glucose and send to the Main Lab for Analysis. POC Glucose, [id number] 11:41:00 Test Item Value Reference Range Comments POC Glucose (test 114 mg/dL 70-115 If you consider your patient code=POCGLUC) critically ill, the [place] Accu-Chek InformII metershould not be used for Glucose determinations.Draw a venous Glucose and send to the Main Lab for Analysis. POC Glucose, [id number] 05:58:00 Test Item Value Reference Range Comments POC Glucose (test 347 mg/dL 70-115 If you consider your patient code=POCGLUC) critically ill, the [place] Accu-Chek InformII metershould not be used for Glucose determinations.Draw a venous Glucose and send to the Main Lab for Analysis. POC Glucose, [id number] 19:27:00 Test Item Value Reference Range Comments POC Glucose (test 334 mg/dL 70-115 Notify RN or MDIf you consider code=POCGLUC) your patient critically ill, the [place] Accu-Chek InformII metershould not be used for Glucose determinations.Draw a venous Glucose and send to the Main Lab for Analysis. POC Glucose, [id number] 15:02:00 Test Item Value Reference Range Comments POC Glucose (test 72 mg/dL 70-115 If you consider your patient code=POCGLUC) critically ill, the [place] Accu-Chek InformII metershould not be used for Glucose determinations.Draw a venous Glucose and send to the Main Lab for Analysis. POC Glucose, [id number] 12:14:00 Test Item Value Reference Range Comments POC Glucose (test 110 mg/dL 70-115 If you consider your patient code=POCGLUC) critically ill, the [place] Accu-Chek InformII metershould not be used for Glucose determinations.Draw a venous Glucose and send to the Main Lab for Analysis. POC Glucose, [id number] 06:03:00 Test Item Value Reference Range Comments POC Glucose (test 224 mg/dL 70-115 If you consider your patient code=POCGLUC) critically ill, the [place] Accu-Chek InformII metershould not be used for Glucose determinations.Draw a venous Glucose and send to the Main Lab for Analysis. POC Glucose, [id number] 19:29:00 Test Item Value Reference Range Comments POC Glucose (test 300 mg/dL 70-115 Notify RN or MDIf you consider code=POCGLUC) your patient critically ill, the [place] Accu-Chek InformII metershould not be used for Glucose determinations.Draw a venous Glucose and send to the Main Lab for Analysis. POC Glucose, [id number] 16:00:00 Test Item Value Reference Range Comments POC Glucose (test 283 mg/dL 70-115 Notify RN or MDIf you consider code=POCGLUC) your patient critically ill, the [place] Accu-Chek InformII metershould not be used for Glucose determinations.Draw a venous Glucose and send to the Main Lab for Analysis. RPR, [id number] 14:24:00 Test Item Value Reference Range Comments RPR (test code=RPR) Non-Reactive Non-Reactive POC Glucose, [id number] 11:09:00 Test Item Value Reference Range Comments [...] TSH (test code=TSH) 2.05 mIU/mL 0.270-4.200 Lipid [id number] 08:56:00 Test Item Value Reference Range Comments Cholesterol (test 215 mg/dL 0-200 code=CHOL) Triglycerides (test 370 mg/dL 9-200 code=TRIG) HDL (test code=HDL) 33 mg/dL 40-60 Chol/HDL (test 6.5 Ratio 0.0-5.0 code=CHOLPHDL) LDL, Calculated (test 108 0-130 (NOTE)RISK OF HEART code=LDLC) DISEASEPublished by Thai Heart AssociationAnalyte Optimal Boderline Increased RiskCHOL <200 200-239 >240TRIG <150 150-199 >200HDL Male: >60 <40HDL Female: >60 <50LDL <100 130-159 >160LDL NEAR OPTIMAL IS 100-129 VLDL (test code=VLDL) 74 mg/dL 5-40 LDL/HDL (test code=LDLPHDL) 3 POC Glucose, [id number] 05:44:00 Test Item Value Reference Range Comments POC Glucose (test 229 mg/dL 70-115 Notify RN or MDIf you consider code=POCGLUC) your patient critically ill, the [place] Accu-Chek InformII metershould not be used for Glucose determinations.Draw a venous Glucose and send to the Main Lab for Analysis. POC Glucose, [id number] 11:20:00 Test Item Value Reference Range Comments POC Glucose (test 160 mg/dL 70-115 If you consider your patient code=POCGLUC) critically ill, the [place] Accu-Chek InformII metershould not be used for Glucose determinations.Draw a venous Glucose and send to the Main Lab for Analysis. POC Glucose, [id number] 07:41:00 Test Item Value Reference Range Comments POC Glucose (test 121 mg/dL 70-115 If you consider your patient code=POCGLUC) critically ill, the [place] Accu-Chek InformII metershould not be used for Glucose determinations.Draw a venous Glucose and send to the Main Lab for Analysis. POC Glucose, [id number] 21:24:00 Test Item Value Reference Range Comments POC Glucose (test 108 mg/dL 70-115 If you consider your patient code=POCGLUC) critically ill, the [place] Accu-Chek InformII metershould not be used for Glucose determinations.Draw a venous Glucose and send to the Main Lab for Analysis. POC Glucose, [id number] 15:55:00 Test Item Value Reference Range Comments POC Glucose (test 160 mg/dL 70-115 Notify RN or MDIf you consider code=POCGLUC) your patient critically ill, the [place] Accu-Chek InformII metershould not be used for Glucose determinations.Draw a venous Glucose and send to the Main Lab for Analysis. POC Glucose, [id number] 11:21:00 Test Item Value Reference Range Comments POC Glucose (test 111 mg/dL 70-115 If you consider your patient code=POCGLUC) critically ill, the [place] Accu-Chek InformII metershould not be used for Glucose determinations.Draw a venous Glucose and send to the Main Lab for Analysis. POC Glucose, [id number] 08:06:00 Test Item Value Reference Range Comments POC Glucose (test 135 mg/dL 70-115 If you consider your patient code=POCGLUC) critically ill, the [place] Accu-Chek InformII metershould not be used for Glucose determinations.Draw a venous Glucose and send to the Main Lab for Analysis. POC Glucose, [id number] 22:43:00 Test Item Value Reference Range Comments POC Glucose (test 106 mg/dL 70-115 If you consider your patient code=POCGLUC) critically ill, the [place] Accu-Chek InformII metershould not be used for Glucose determinations.Draw a venous Glucose and send to the Main Lab for Analysis. POC Glucose, [id number] 16:42:00 Test Item Value Reference Range Comments POC Glucose (test 96 mg/dL 70-115 If you consider your patient code=POCGLUC) critically ill, the [place] Accu-Chek InformII metershould not be used for Glucose determinations.Draw a venous Glucose and send to the Main Lab for Analysis. POC Glucose, [id number] 11:10:00 Test Item Value Reference Range Comments POC Glucose (test 149 mg/dL 70-115 Notify RN or MDIf you consider code=POCGLUC) your patient critically ill, the [place] Accu-Chek InformII metershould not be used for Glucose determinations.Draw a venous Glucose and send to the Main Lab for Analysis. POC Glucose, [id number] 07:26:00 Test Item Value Reference Range Comments POC Glucose (test 124 mg/dL 70-115 If you consider your patient code=POCGLUC) critically ill, the [place] Accu-Chek InformII metershould not be used for Glucose determinations.Draw a venous Glucose and send to the Main Lab for Analysis. POC Glucose, [id number] 21:16:00 Test Item Value Reference Range Comments POC Glucose (test 164 mg/dL 70-115 Notify RN or MDIf you consider code=POCGLUC) your patient critically ill, the [place] Accu-Chek InformII metershould not be used for Glucose determinations.Draw a venous Glucose and send to the Main Lab for Analysis. POC Glucose, [id number] 16:34:00 Test Item Value Reference Range Comments POC Glucose (test 100 mg/dL 70-115 If you consider your patient code=POCGLUC) critically ill, the [place] Accu-Chek InformII metershould not be used for Glucose determinations.Draw a venous Glucose and send to the Main Lab for Analysis. POC Glucose, [id number] 11:06:00 Test Item Value Reference Range Comments POC Glucose (test 120 mg/dL 70-115 If you consider your patient code=POCGLUC) critically ill, the [place] Accu-Chek InformII metershould not be used for Glucose determinations.Draw a venous Glucose and send to the Main Lab for Analysis. POC Glucose, [id number] 07:30:00 Test Item Value Reference Range Comments POC Glucose (test 80 mg/dL 70-115 If you consider your patient code=POCGLUC) critically ill, the [place] Accu-Chek InformII metershould not be used for Glucose determinations.Draw a venous Glucose and send to the Main Lab for Analysis. POC Glucose, [id number] 21:17:00 Test Item Value Reference Range Comments POC Glucose (test 175 mg/dL 70-115 Notify RN or MDIf you consider code=POCGLUC) your patient critically ill, the [place] Accu-Chek InformII metershould not be used for Glucose determinations.Draw a venous Glucose and send to the Main Lab for Analysis. POC Glucose, [id number] 17:46:00 Test Item Value Reference Range Comments POC Glucose (test 128 mg/dL 70-115 If you consider your patient code=POCGLUC) critically ill, the [place] Accu-Chek InformII metershould not be used for Glucose determinations.Draw a venous Glucose and send to the Main Lab for Analysis. POC Glucose, [id number] 11:35:00 Test Item Value Reference Range Comments POC Glucose (test 134 mg/dL 70-115 If you consider your patient code=POCGLUC) critically ill, the [place] Accu-Chek InformII metershould not be used for Glucose determinations.Draw a venous Glucose and send to the Main Lab for Analysis. POC Glucose, [id number] 08:10:00 Test Item Value Reference Range Comments POC Glucose (test 220 mg/dL 70-115 If you consider your patient code=POCGLUC) critically ill, the [place] Accu-Chek InformII metershould not be used for Glucose determinations.Draw a venous Glucose and send to the Main Lab for Analysis. Comprehensive Metabolic [id number] 06:52:00 Test Item Value Reference Range Comments [...] race is not provided, and the patient isAfrican-Thai, multiply by 1.212. If sex is not [...] the National Kidney Foundation,http://nkdep.nih .gov CBC with [id number] 06:34:00 Test Item Value Reference Range Comments [...] Lymph Abs (test code=ALYMPH) 2.4 K/cumm 0.5-4.6 Mcmullen Abs (test code=AMONO) 0.7 K/cumm 0.0-1.2 Eos Abs (test code=AEOS) 0.19 K/cumm 0.00-0.74 Baso Abs (test code=ABASO) 0.1 K/cumm 0.00-0.21 Microcytosis (test code=MICRO) Slight POC Glucose, [id number] 20:28:00 Test Item Value Reference Range Comments POC Glucose (test 211 mg/dL 70-115 If you consider your patient code=POCGLUC) critically ill, the [place] Accu-Chek InformII metershould not be used for Glucose determinations.Draw a venous Glucose and send to the Main Lab for Analysis. POC Glucose, [id number] 17:09:00 Test Item Value Reference Range Comments POC Glucose (test 146 mg/dL 70-115 If you consider your patient code=POCGLUC) critically ill, the [place] Accu-Chek InformII metershould not be used for Glucose determinations.Draw a venous Glucose and send to the Main Lab for Analysis. POC Glucose, [id number] 11:53:00 Test Item Value Reference Range Comments POC Glucose (test 136 mg/dL 70-115 If you consider your patient code=POCGLUC) critically ill, the [place] Accu-Chek InformII metershould not be used for Glucose determinations.Draw a venous Glucose and send to the Main Lab for Analysis. POC Glucose, [id number] 07:57:00 Test Item Value Reference Range Comments POC Glucose (test 143 mg/dL 70-115 If you consider your patient code=POCGLUC) critically ill, the [place] Accu-Chek InformII metershould not be used for Glucose determinations.Draw a venous Glucose and send to the Main Lab for Analysis. POC Glucose, [id number] 20:38:00 Test Item Value Reference Range Comments POC Glucose (test 152 mg/dL 70-115 Notify RN or MDIf you consider code=POCGLUC) your patient critically ill, the [place] Accu-Chek InformII metershould not be used for Glucose determinations.Draw a venous Glucose and send to the Main Lab for Analysis. POC Glucose, [id number] 16:49:00 Test Item Value Reference Range Comments POC Glucose (test 171 mg/dL 70-115 Notify RN or MDIf you consider code=POCGLUC) your patient critically ill, the [place] Accu-Chek InformII metershould not be used for Glucose determinations.Draw a venous Glucose and send to the Main Lab for Analysis. POC Glucose, [id number] 11:10:00 Test Item Value Reference Range Comments POC Glucose (test 160 mg/dL 70-115 Notify RN or MDIf you consider code=POCGLUC) your patient critically ill, the [place] Accu-Chek InformII metershould not be used for Glucose determinations.Draw a venous Glucose and send to the Main Lab for Analysis. POC Glucose, [id number] 07:36:00 Test Item Value Reference Range Comments POC Glucose (test 126 mg/dL 70-115 If you consider your patient code=POCGLUC) critically ill, the [place] Accu-Chek InformII metershould not be used for Glucose determinations.Draw a venous Glucose and send to the Main Lab for Analysis. POC Glucose, [id number] 20:51:00 Test Item Value Reference Range Comments POC Glucose (test 165 mg/dL 70-115 Notify RN or MDIf you consider code=POCGLUC) your patient critically ill, the [place] Accu-Chek InformII metershould not be used for Glucose determinations.Draw a venous Glucose and send to the Main Lab for Analysis. POC Glucose, [id number] 16:42:00 Test Item Value Reference Range Comments POC Glucose (test 133 mg/dL 70-115 If you consider your patient code=POCGLUC) critically ill, the [place] Accu-Chek InformII metershould not be used for Glucose determinations.Draw a venous Glucose and send to the Main Lab for Analysis. POC Glucose, [id number] 11:19:00 Test Item Value Reference Range Comments POC Glucose (test 250 mg/dL 70-115 Notify RN or MDIf you consider code=POCGLUC) your patient critically ill, the [place] Accu-Chek InformII metershould not be used for Glucose determinations.Draw a venous Glucose and send to the Main Lab for Analysis. Culture, [id number] 08:19:00Specimen: UrineCollected: 07/10/2017 12:47 Status: Final Last Updated: 07/12/2017 08:19 Culture Result (Final) (Final ) 07/11/17 No growth 24 hours 07/12/17 No growth 48 hoursPOC Glucose, [id number] 07:26:00 Test Item Value Reference Range Comments POC Glucose (test 131 mg/dL 70-115 Notify RN or MDIf you consider code=POCGLUC) your patient critically ill, the [place] Accu-Chek InformII metershould not be used for Glucose determinations.Draw a venous Glucose and send to the Main Lab for Analysis. POC Glucose, [id number] 20:55:00 Test Item Value Reference Range Comments POC Glucose (test 140 mg/dL 70-115 If you consider your patient code=POCGLUC) critically ill, the [place] Accu-Chek InformII metershould not be used for Glucose determinations.Draw a venous Glucose and send to the Main Lab for Analysis. POC Glucose, [id number] 16:13:00 Test Item Value Reference Range Comments POC Glucose (test 151 mg/dL 70-115 Notify RN or MDIf you consider code=POCGLUC) your patient critically ill, the [place] Accu-Chek InformII metershould not be used for Glucose determinations.Draw a venous Glucose and send to the Main Lab for Analysis. POC Glucose, [id number] 11:43:00 Test Item Value Reference Range Comments POC Glucose (test 170 mg/dL 70-115 Notify RN or MDIf you consider code=POCGLUC) your patient critically ill, the [place] Accu-Chek InformII metershould not be used for Glucose determinations.Draw a venous Glucose and send to the Main Lab for Analysis. POC Glucose, [id number] 07:23:00 Test Item Value Reference Range Comments POC Glucose (test 207 mg/dL 70-115 Notify RN or MDIf you consider code=POCGLUC) your patient critically ill, the [place] Accu-Chek InformII metershould not be used for Glucose determinations.Draw a venous Glucose and send to the Main Lab for Analysis. POC Glucose, [id number] 20:24:00 Test Item Value Reference Range Comments POC Glucose (test 208 mg/dL 70-115 If you consider your patient code=POCGLUC) critically ill, the [place] Accu-Chek InformII metershould not be used for Glucose determinations.Draw a venous Glucose and send to the Main Lab for Analysis. POC Glucose, [id number] 17:14:00 Test Item Value Reference Range Comments POC Glucose (test 158 mg/dL 70-115 If you consider your patient code=POCGLUC) critically ill, the [place] Accu-Chek InformII metershould not be used for Glucose determinations.Draw a venous Glucose and send to the Main Lab for Analysis. Urinalysis [id number] 13:04:00 Test Item Value Reference Range Comments Color (test code=COLOR) Straw Yellow,Straw,Pl yellow Clarity (test code=CLAR) Clear Clear Specific Una (test code=SPGR) 1.010 1.001-1.035 pH (test code=PH) [...] Exam (test code=MEXAM) Not indicated POC Glucose, [id number] 11:48:00 Test Item Value Reference Range Comments POC Glucose (test 135 mg/dL 70-115 If you consider your patient code=POCGLUC) critically ill, the [place] Accu-Chek InformII metershould not be used for Glucose determinations.Draw a venous Glucose and send to the Main Lab for Analysis. POC Glucose, [id number] 07:47:00 Test Item Value Reference Range Comments POC Glucose (test 173 mg/dL 70-115 If you consider your patient code=POCGLUC) critically ill, the [place] Accu-Chek InformII metershould not be used for Glucose determinations.Draw a venous Glucose and send to the Main Lab for Analysis. Basic Metabolic [id number] 05:18:00 Test Item Value Reference Range Comments [...] race is not provided, and the patient isAfrican-Thai, multiply by 1.212. If sex is not [...] the National Kidney Foundation,http://nkdep.nih .gov CBC with [id number] 04:59:00 Test Item Value Reference Range Comments [...] Lymph Abs (test code=ALYMPH) 2.7 K/cumm 0.5-4.6 Mcmullen Abs (test code=AMONO) 0.8 K/cumm 0.0-1.2 Eos Abs (test code=AEOS) 0.26 K/cumm 0.00-0.74 Baso Abs (test code=ABASO) 0.0 K/cumm 0.00-0.21 POC Glucose, [id number] 20:59:00 Test Item Value Reference Range Comments POC Glucose (test 199 mg/dL 70-115 Notify RN or MDIf you consider code=POCGLUC) your patient critically ill, the [place] Accu-Chek InformII metershould not be used for Glucose determinations.Draw a venous Glucose and send to the Main Lab for Analysis. POC Glucose, [id number] 16:26:00 Test Item Value Reference Range Comments POC Glucose (test 170 mg/dL 70-115 Notify RN or MDIf you consider code=POCGLUC) your patient critically ill, the [place] Accu-Chek InformII metershould not be used for Glucose determinations.Draw a venous Glucose and send to the Main Lab for Analysis. POC Glucose, [id number] 11:41:00 Test Item Value Reference Range Comments POC Glucose (test 246 mg/dL 70-115 If you consider your patient code=POCGLUC) critically ill, the [facility] Accu-Chek InformII metershould not be used for Glucose determinations.Draw a venous Glucose and send to the Main Lab for Analysis. Glycosylated [id number] 07:39:00 Test Item Value Reference Range Comments HBA1c (test code=HBA1C) 9.1 % 4.8-5.9 POC Glucose, [id number] 07:36:00 Test Item Value Reference Range Comments POC Glucose (test 206 mg/dL 70-115 If you consider your patient code=POCGLUC) critically ill, the [place] Accu-Chek InformII metershould not be used for Glucose determinations.Draw a venous Glucose and send to the Main Lab for Analysis. CBC with [id number] 06:09:00 Test Item Value Reference Range Comments [...] Lymph Abs (test code=ALYMPH) 3.5 K/cumm 0.5-4.6 Mcmullen Abs (test code=AMONO) 1.0 K/cumm 0.0-1.2 Eos Abs (test code=AEOS) 0.19 K/cumm 0.00-0.74 Baso Abs (test code=ABASO) 0.1 K/cumm 0.00-0.21 Microcytosis (test code=MICRO) Slight Comprehensive Metabolic [id number] 06:00:00 Test Item Value Reference Range Comments [...] race is not provided, and the patient isAfrican-Thai, multiply by 1.212. If sex is not provided, and thepatient is female, multiply by 0.742. Results for patients <18 years ofage have not been validated by the MDRD study and should be interpretedwith caution.eGFR Result Interpretation:eGFR > or=60 is in the Normal RangeeGFR < 60 may mean kidney diseaseeGFR < 15 may mean kidney failureRanges recommended by the National Kidney Foundation,http://nkdep.nih .gov Magnesium, [id number] 06:00:00 Test Item Value Reference Range Comments Magnesium (test code=MG) 2.2 mg/dL 1.7-2.5 [id number] 06:00:00 Test Item Value Reference Range Comments Phosphorus (test code=PO4) 2.8 mg/dL 2.70-4.50 POC Glucose, [id number] 20:44:00 Test Item Value Reference Range Comments POC Glucose (test 199 mg/dL 70-115 If you consider your patient code=POCGLUC) critically ill, the [facility] Accu-Chek InformII metershould not be used for Glucose determinations.Draw a venous Glucose and send to the Main Lab for Analysis. POC Glucose, [id number] 16:28:00 Test Item Value Reference Range Comments POC Glucose (test 242 mg/dL 70-115 Notify RN or MDIf you consider code=POCGLUC) your patient critically ill, the [facility] Accu-Chek InformII metershould not be used for Glucose determinations.Draw a venous Glucose and send to the Main Lab for Analysis. POC Glucose, [id number] 13:37:00 Test Item Value Reference Range Comments POC Glucose (test 131 mg/dL 70-115 If you consider your patient code=POCGLUC) critically ill, the [place] Accu-Chek InformII metershould not be used for Glucose determinations.Draw a venous Glucose and send to the Main Lab for Analysis. POC Glucose, [id number] 12:14:00 Test Item Value Reference Range Comments POC Glucose (test 100 mg/dL 70-115 If you consider your patient code=POCGLUC) critically ill, the [place] Accu-Chek InformII metershould not be used for Glucose determinations.Draw a venous Glucose and send to the Main Lab for Analysis. POC Glucose, [id number] 07:30:00 Test Item Value Reference Range Comments POC Glucose (test 123 mg/dL 70-115 If you consider your patient code=POCGLUC) critically ill, the [place] Accu-Chek InformII metershould not be used for Glucose determinations.Draw a venous Glucose and send to the Main Lab for Analysis. Basic Metabolic [id number] 06:05:00 Test Item Value Reference Range Comments [...] race is not provided, and the patient isAfrican-Thai, multiply by 1.212. If sex is not [...] the National Kidney Foundation,http://nkdep.nih .gov CBC with [id number] 05:44:00 Test Item Value Reference Range Comments [...] Lymph Abs (test code=ALYMPH) 4.8 K/cumm 0.5-4.6 Mcmullen Abs (test code=AMONO) 0.8 K/cumm 0.0-1.2 Eos Abs (test code=AEOS) 0.34 K/cumm 0.00-0.74 Baso Abs (test code=ABASO) 0.1 K/cumm 0.00-0.21 POC Glucose, [id number] 20:29:00 Test Item Value Reference Range Comments POC Glucose (test 152 mg/dL 70-115 If you consider your patient code=POCGLUC) critically ill, the [facility] Accu-Chek InformII metershould not be used for Glucose determinations.Draw a venous Glucose and send to the Main Lab for Analysis. Antibody Screen - [id number] 17:58:00 Test Item Value Reference Range Comments Antibody Screen (test code=ABSCR) Negative Blood Type and [id number] 17:44:00 Test Item Value Reference Range Comments ABO type (test code=ABO) A Rh Type (test code=RH) Positive POC Glucose, [id number] 16:09:00 Test Item Value Reference Range Comments POC Glucose (test 192 mg/dL 70-115 If you consider your patient code=POCGLUC) critically ill, the [place] Accu-Chek InformII metershould not be used for Glucose determinations.Draw a venous Glucose and send to the Main Lab for Analysis. POC Glucose, [id number] 12:11:00 Test Item Value Reference Range Comments POC Glucose (test 249 mg/dL 70-115 If you consider your patient code=POCGLUC) critically ill, the [place] Accu-Chek InformII metershould not be used for Glucose determinations.Draw a venous Glucose and send to the Main Lab for Analysis. MRI LWR EXTRM NON-JNT WO [id number] 09:25:10LOCATION: A92MMAG: MRI LWR EXTRM NON-JNT WO CONTRST-LEFTINDICATION: LEFT [...] concerning for injury.US DUPLX LWR EXT ART/BPG, [id number] 08: 50:53US DUPLX LWR EXT ART/BPG, BILATCLINICAL HISTORY: non-healing woundsTechnique: Grayscale, color, and spectral sonography of the bilateral lower extremity arteries was performed.FINDINGS:Right leg (waveform / peak systolic velocity)FORENSIC PSYCHOLOGIST: Triphasic 95 cm/secProx SFA: Triphasic 92 cm/secMid SFA: Triphasic 81 cm/secDistal SFA: Triphasic 83 cm/ secPopliteal: Triphasic 84 cm/secPTA: Monophasic 93 cm/ secATA: Triphasic 32 cm/secDPA: Not imaged/bandaging Left leg (waveform / peak systolic velocity)FORENSIC PSYCHOLOGIST: Triphasic 88 cm/secProx SFA: Triphasic 93 cm/secMid SFA: Triphasic 82 cm/ secDistal SFA: Triphasic 49 cm/secPopliteal: Triphasic 60 cm/secPTA: Triphasic 73 cm/secATA: Triphasic 93 cm/secDPA: Not imaged/bandaging IMPRESSION: 1. Limited exam. Thedorsalis pedis arteries are not imaged.2. Abnormal monophasic waveform in the right posterior tibial artery.3. Otherwise unremarkable exam.Location: [id number] with [id number] 08:22:00 Test Item Value Reference Range Comments [...] Lymph Abs (test code=ALYMPH) 3.6 K/cumm 0.5-4.6 Mcmullen Abs (test code=AMONO) 0.6 K/cumm 0.0-1.2 Eos Abs (test code=AEOS) 0.37 K/cumm 0.00-0.74 Baso Abs (test code=ABASO) 0.1 K/cumm 0.00-0.21 Basic Metabolic [id number] 08:03:00 Test Item Value Reference Range Comments [...] race is not provided, and the patient isAfrican-Thai, multiply by 1.212. If sex is not [...] the National Kidney Foundation,http://nkdep.nih .gov POC Glucose, [id number] 07:30:00 Test Item Value Reference Range Comments POC Glucose (test 110 mg/dL 70-115 If you consider your patient code=POCGLUC) critically ill, the [facility] Accu-Chek InformII metershould not be used for Glucose determinations.Draw a venous Glucose and send to the Main Lab for Analysis. POC Glucose, [id number] 19:57:00 Test Item Value Reference Range Comments POC Glucose (test 124 mg/dL 70-115 If you consider your patient code=POCGLUC) critically ill, the [facility] Accu-Chek InformII metershould not be used for Glucose determinations.Draw a venous Glucose and send to the Main Lab for Analysis. POC Glucose, [id number] 16:10:00 Test Item Value Reference Range Comments POC Glucose (test 114 mg/dL 70-115 Notify RN or MDIf you consider code=POCGLUC) your patient critically ill, the [facility] Accu-Chek InformII metershould not be used for Glucose determinations.Draw a venous Glucose and send to the Main Lab for Analysis. POC Glucose, [id number] 11:18:00 Test Item Value Reference Range Comments POC Glucose (test 203 mg/dL 70-115 Notify RN or MDIf you consider code=POCGLUC) your patient critically ill, the [facility] Accu-Chek InformII metershould not be used for Glucose determinations.Draw a venous Glucose and send to the Main Lab for Analysis. Culture, Wound [id number] 09:58:00Specimen: FootCollected: 2016 17:00 Status: Final Last [...] Streptococcus Beta Hemolytic Streptococcus Group GPOC Glucose, [id number] 07:23:00 Test Item Value Reference Range Comments POC Glucose (test 197 mg/dL 70-115 Notify RN or MDIf you consider code=POCGLUC) your patient critically ill, the [facility] Accu-Chek InformII metershould not be used for Glucose determinations.Draw a venous Glucose and send to the Main Lab for Analysis. POC Glucose, [id number] 16:09:00 Test Item Value Reference Range Comments POC Glucose (test 194 mg/dL 70-115 If you consider your patient code=POCGLUC) critically ill, the [facility] Accu-Chek InformII metershould not be used for Glucose determinations.Draw a venous Glucose and send to the Main Lab for Analysis. POC Glucose, [id number] 11:33:00 Test Item Value Reference Range Comments POC Glucose (test 193 mg/dL 70-115 If you consider your patient code=POCGLUC) critically ill, the [facility] Accu-Chek InformII metershould not be used for Glucose determinations.Draw a venous Glucose and send to the Main Lab for Analysis. MRI LWR EXTRM NON-JNT WO [id number] 08:18:56EXAM: MRI right foot without contrastLocation: [id number]: History of amputation, rule out osteomyelitisCOMPARISON: Left [...] stump.3. Post amputation changes as described.POC Glucose, [id number] 07:15:00 Test Item Value Reference Range Comments POC Glucose (test 140 mg/dL 70-115 If you consider your patient code=POCGLUC) critically ill, the [facility] Accu-Chek InformII metershould not be used for Glucose determinations.Draw a venous Glucose and send to the Main Lab for Analysis. Sed Rate ESR ([place])2017-07-05 06:40:00 Test Item Value Reference Range Comments ESR (test code=HESR) 54 mm/Hr 0-9 C-Reactive Protein, [id number] 05:41:00 Test Item Value Reference Range Comments CRP (test code=CRP) 34.7 mg/L 0.0-5.0 POC Glucose, [id number] 21:22:00 Test Item Value Reference Range Comments POC Glucose (test 141 mg/dL 70-115 If you consider your patient code=POCGLUC) critically ill, the [facility] Accu-Chek InformII metershould not be used for Glucose determinations.Draw a venous Glucose and send to the Main Lab for Analysis. POC Glucose, [id number] 16:09:00 Test Item Value Reference Range Comments POC Glucose (test 156 mg/dL 70-115 If you consider your patient code=POCGLUC) critically ill, the [facility] Accu-Chek InformII metershould not be used for Glucose determinations.Draw a venous Glucose and send to the Main Lab for Analysis. POC Glucose, [id number] 12:05:00 Test Item Value Reference Range Comments POC Glucose (test 170 mg/dL 70-115 If you consider your patient code=POCGLUC) critically ill, the [facility] Accu-Chek InformII metershould not be used for Glucose determinations.Draw a venous Glucose and send to the Main Lab for Analysis. XR FOOT [id number] 08:56:55XR FOOT 2V-LEFTLOCATION: [id number]:left foot ulcer COMPARISON: None.DISCUSSION:Frontal and lateral radiographs [...] stump.2. No definite acute osseous abnormalities.XR FOOT [id number] 08:53:30XR FOOT 2V- RIGHTLOCATION: [id number]:right foot stump ulcer COMPARISON: None.DISCUSSION:Frontal and lateral radiographs of the right foot were obtained. Amputation changes at the proximal metatarsals are noted.No definite suspicious focal osseous destruction or periosteal reactionis seen.Otherwise, no acute fracture or dislocation is seen.The joint spaces are grossly preserved.IMPRESSION:1. 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 No definite acute osseous abnormalities.POC Glucose, [id number] 07:50:00 Test Item Value Reference Range Comments POC Glucose (test 139 mg/dL 70-115 If you consider your patient code=POCGLUC) critically ill, the [facility] Accu-Chek InformII metershould not be used for Glucose determinations.Draw a venous Glucose and send to the Main Lab for Analysis. CBC with [id number] 06:19:00 Test Item Value Reference Range Comments [...] Lymph Abs (test code=ALYMPH) 2.7 K/cumm 0.5-4.6 Mcmullen Abs (test code=AMONO) 0.6 K/cumm 0.0-1.2 Eos Abs (test code=AEOS) 0.32 K/cumm 0.00-0.74 Baso Abs (test code=ABASO) 0.1 K/cumm 0.00-0.21 Lipid [id number] 06:15:00 Test Item Value Reference Range Comments Cholesterol (test 133 mg/dL 0-200 code=CHOL) Triglycerides (test 164 mg/dL 9-200 code=TRIG) HDL (test code=HDL) 31 mg/dL 40-60 Chol/HDL (test 4.3 Ratio 0.0-5.0 code=CHOLPHDL) LDL, Calculated (test 69 0-130 (NOTE)RISK OF HEART code=LDLC) DISEASEPublished by Thai Heart AssociationAnalyte Optimal Boderline Increased RiskCHOL <200 200-239 >240TRIG <150 150-199 >200HDL Male: >60 <40HDL Female: >60 <50LDL <100 130-159 >160LDL NEAR OPTIMAL IS 100-129 VLDL (test code=VLDL) 33 mg/dL 5-40 LDL/HDL (test code=LDLPHDL) 2 POC Glucose, [id number] 17:14:00 Test Item Value Reference Range Comments POC Glucose (test 129 mg/dL 70-115 If you consider your patient code=POCGLUC) critically ill, the [facility] Accu-Chek InformII metershould not be used for Glucose determinations.Draw a venous Glucose and send to the Main Lab for Analysis. RPR, [id number] 12:26:00 Test Item Value Reference Range Comments RPR (test code=RPR) Non-Reactive Non-Reactive POC Glucose, [id number] 12:05:00 Test Item Value Reference Range Comments POC Glucose (test 173 mg/dL 70-115 If you consider your patient code=POCGLUC) critically ill, the [facility] Accu-Chek InformII metershould not be used for Glucose determinations.Draw a venous Glucose and send to the Main Lab for Analysis. POC Glucose, [id number] 07:57:00 Test Item Value Reference Range Comments POC Glucose (test 144 mg/dL 70-115 If you consider your patient code=POCGLUC) critically ill, the [facility] Accu-Chek InformII metershould not be used for Glucose determinations.Draw a venous Glucose and send to the Main Lab for Analysis. POC Glucose, [id number] 06:19:00 Test Item Value Reference Range Comments [...] TSH (test code=TSH) 2.08 mIU/mL 0.270-4.200 Lipid [id number] 23:52:00 Test Item Value Reference Range Comments Cholesterol (test 171 mg/dL 0-200 code=CHOL) Triglycerides (test 171 mg/dL 9-200 code=TRIG) HDL (test code=HDL) 37 mg/dL 40-60 Chol/HDL (test 4.6 Ratio 0.0-5.0 code=CHOLPHDL) LDL, Calculated (test 100 0-130 (NOTE)RISK OF HEART code=LDLC) DISEASEPublished by [place] Heart AssociationAnalyte Optimal Boderline Increased RiskCHOL <200 200-239 >240TRIG <150 150-199 >200HDL Male: >60 <40HDL Female: >60 <50LDL <100 130-159 >160LDL NEAR OPTIMAL IS 100-129 VLDL (test code=VLDL) 34 mg/dL 5-40 LDL/HDL (test code=LDLPHDL) 3 POC Glucose, [id number] 20:03:00 Test Item Value Reference Range Comments POC Glucose (test 221 mg/dL 70-115 If you consider your patient code=POCGLUC) critically ill, the [place] Accu-Chek InformII metershould not be used for Glucose determinations.Draw a venous Glucose and send to the Main Lab for Analysis. POC Glucose, [id number] 16:47:00 Test Item Value Reference Range Comments POC Glucose (test 304 mg/dL 70-115 If you consider your patient code=POCGLUC) critically ill, the [facility] Accu-Chek InformII metershould not be used for Glucose determinations.Draw a venous Glucose and send to the Main Lab for Analysis. POC Glucose, [id number] 15:20:00 Test Item Value Reference Range Comments POC Glucose (test 368 mg/dL 70-115 If you consider your patient code=POCGLUC) critically ill, the [place] Accu-Chek InformII metershould not be used for Glucose determinations.Draw a venous Glucose and send to the Main Lab for Analysis. [id number] 08:27:00 Test Item Value Reference Range Comments [...] Urine (test <0.01 g/dL 0.00-0.01 code=ETOHU) Urinalysis [id number] 07:59:00 Test Item Value Reference Range Comments Color (test code=COLOR) Yellow Yellow,Straw,Pl yellow Clarity (test code=CLAR) Clear Clear Specific Una (test code=SPGR) 1.026 1.001-1.035 pH (test code=PH) [...] Bacteria (test code=BACT) Few /HPF POC Glucose, [id number] 07:23:00 Test Item Value Reference Range Comments POC Glucose (test 174 mg/dL 70-115 If you consider your patient code=POCGLUC) critically ill, the [facility] Accu-Chek InformII metershould not be used for Glucose determinations.Draw a venous Glucose and send to the Main Lab for Analysis. [id number] 06:52:00 Test Item Value Reference Range Comments Acetone [Serum] (test code=ACETONE) Negative Negative Comprehensive Metabolic [id number] 06:19:00 Test Item Value Reference Range Comments [...] race is not provided, and the patient isAfrican-Thai, multiply by 1.212. If sex is not [...] the National Kidney Foundation,http://nkdep.nih .gov CBC with [id number] 06:00:00 Test Item Value Reference Range Comments [...] Lymph Abs (test code=ALYMPH) 3.1 K/cumm 0.5-4.6 Mcmullen Abs (test code=AMONO) 0.9 K/cumm 0.0-1.2 Eos Abs (test code=AEOS) 0.29 K/cumm 0.00-0.74 Baso Abs (test code=ABASO) 0.1 K/cumm 0.00-0.21 POC Glucose, [id number] 05:52:00 Test Item Value Reference Range Comments POC Glucose (test 342 mg/dL 70-115 If you consider your patient code=POCGLUC) critically ill, the [facility] Accu-Chek InformII metershould not be used for Glucose determinations.Draw a venous Glucose and send to the Main Lab for Analysis.
[2019-04-12] MEDS ORDERED: FENTANYL CITR 100 MCG/2 ML ONE (16:52)
[2019-04-12] MEDS ORDERED: NA CHLORIDE 0.9% 2,000 ML ONE ×2 (16:52→20:33)
[2019-04-12 17:48] LABS: Absolute Lymphocytes (CBC) 2.1 K/uL (0.7-4.9); Basophils % 0.7 % (0-1.3); Hematocrit 34.9 % (39.6-49.0); Lymphocytes % 15.8 % (15.3-44.8); MPV 7.7 fL (7.6-11.3); RBC Red Blood Cell Count 4.58 M/uL (4.33-5.43)
--- NOTE | 2019-04-12 17:49 | RAD REPORT ---
EXAM DESCRIPTION: USExtflex Venous Uni Ltd04/12/2019 5:32 pm CLINICAL HISTORY: left leg pain and swelling. FINDINGS: Left common femoral, superficial femoral, popliteal and posterior tibial veins are compre ssible and demonstrate augmentation. Doppler demonstrates good flow. IMPRESSION: No evidence of deep venous thrombosis involving the left lower extremity.
--- NOTE | 2019-04-12 17:51 | RAD REPORT ---
EXAM DESCRIPTION: US - Lower Extremity Artery Uni Ltd - 04/12/2019 5:32 pm CLINICAL HISTORY: Left leg pain swelling FINDINGS: The waveforms of the left common femoral, left superficial femoral and left popliteal lana lolis are generally biphasic. The waveforms of the left dorsalis pedis and left posterior tibial arteries are triphasic. No occlusion seen. 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
[2019-04-12 17:58] LABS: Protime INR 1.01
--- NOTE | 2019-04-12 18:05 | RAD REPORT ---
EXAM DESCRIPTION: RAD - Foot Left 3 View - 04/12/2019 5:55 pm CLINICAL HISTORY: Left Foot pain and swelling FINDINGS: Partial amputation involves the fifth metatarsal. Soft tissue ulceration is seen. Cortical regularity involves the distal fifth metatarsal suspicious for osteomyelitis. Bony fragmentation involves the bases of second, third and fourth metatarsals which may indicate a ne uropathic joint
--- NOTE | 2019-04-12 18:06 | RAD REPORT ---
EXAM DESCRIPTION: Young Single View04/12/2019 5:55 pm CLINICAL HISTORY: Hypertension COMPARISON: July 2018 FINDINGS: The lungs appear clear of acute infiltrate. The heart is normal size IMPRESSION: No acute abnormalities displayed
[2019-04-12 18:39] LABS: ALT/SGPT 17 U/L (12-78); AST/SGOT 8 U/L (15-37); Albumin 2.9 g/dL (3.4-5.0); Alkaline Phosphatase 177 U/L (45-117); BUN Blood Urea Nitrogen 16 mg/dL (7-18); Bicarbonate 26 mmol/L (21-32); Bilirubin Direct < 0.1 mg/dL (0-0.2); Bilirubin Total 0.2 mg/dL (0.2-1.0); Glucose Level 183 mg/dL (74-106); Protein, Total 7.6 g/dL (6.4-8.2); Sodium Level 133 mmol/L (136-145)
[2019-04-12] MEDS ORDERED: BENZONATATE 100 MG CAP PO ONE (18:52)
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
[2019-04-12] MEDS ORDERED: Levofloxacin 750mg IV 750 MG/150 ML BAG IV ONE (19:28)
[2019-04-12] MEDS ORDERED: POTASSIUM 25 MEQ EFFERV TAB ONE (19:28)
[2019-04-12] MEDS ORDERED: PIPER/TAZO/NS 3.375gm 3.375 GM/100 ML BAG ONE (19:29)
[2019-04-12 20:45] LABS: Urine Blood 2+ (NEG); Urine Glucose 2+ (NEG); Urine Protein 2+ (NEG)
[2019-04-12] MEDS ORDERED: ONDANSETRON 4 MG/2 ML VIAL IV PRN (20:48)
[2019-04-12] MEDS ORDERED: ACETAMINOPHEN 500 MG TAB PO PRN (20:48)
[2019-04-12] MEDS ORDERED: MORPHINE 2 MG/ML SYR IV PRN (20:48)
[2019-04-12] MEDS: NA CHLORIDE 0.9% 1,000 ML IV SCH (21:00)
[2019-04-12] MEDS: INSULIN -REGULAR HUMAN 50 UNIT/0.5 ML ML SQ SCH (21:00)
[2019-04-12 21:07] LABS: Urine Bacteria <20 /HPF (NONE SEEN); Urine Culture Reflex Order REFLEXED; Urine Mucus 1+ /HPF (NONE SEEN); Urine Sperm PRESENT (NONE SEEN); Urine Yeast PRESENT (NONE SEEN)
[2019-04-12 21:17] VITALS: BMI 31.6
[2019-04-12] MEDS ORDERED: HYDROMORPHONE HCL 1 MG/ML INJ IV ONE (22:52)
[2019-04-13] MEDS: TEMAZEPAM 15 MG CAP PO PRN ×2 (01:40→22:38)
[2019-04-13] MEDS ORDERED: HYDROMORPHONE HCL 1 MG/ML INJ IV ONE (03:02)
[2019-04-13 05:22] LABS: Absolute Lymphocytes (CBC) 2.3 K/uL (0.7-4.9); Basophils % 0.8 % (0-1.3); Hematocrit 27.5 % (39.6-49.0); Lymphocytes % 26.2 % (15.3-44.8); MPV 7.5 fL (7.6-11.3); RBC Red Blood Cell Count 3.56 M/uL (4.33-5.43)
[2019-04-13 05:32] LABS: Potassium 3.1 mmol/L (3.5-5.1)
[2019-04-13] MEDS: INSULIN -REGULAR HUMAN 50 UNIT/0.5 ML ML SQ SCH ×4 (07:30→20:21)
[2019-04-13] MEDS: HYDROMORPHONE HCL 0.5 MG/0.5 ML INJ IV PRN ×3 (09:35→20:22)
--- NOTE | 2019-04-13 10:31 | RAD REPORT ---
EXAM DESCRIPTION: MRI - Foot Left Wo Cont - 04/13/2019 10:15 am CLINICAL HISTORY: Osteomyelitis January 2019 COMPARISON: Left foot films April 12, MRI February 08 TECHNIQUE: Multiplanar imaging of the left foot performed using T1 weighted, T1 fat saturation, T2 f at saturation and T2 stir sequencing. FINDINGS: Hypointense T1 and hyperintense T2 signal is present in the base and shaft of the first me tatarsal and medial cuneiform. Similar signal abnormality present in the second- fifth metatarsals. B one loss changes are present at the base of the second- fourth metatarsals. Middle and lateral cuneif orm bones also show abnormal marrow pattern. No abnormal marrow signal in the first- fourth toes. Fif th toe and fifth metatarsal head have been resected. No marrow signal abnormality in the talus, calcaneus, navicular or cuboid bones. The cuneiform and metatarsal signal abnormalities are consistent with osteomyelitis. Findings are not substantially different from the January comparison study. Extensive midfoot infectious/inflammatory change. No abscess or drainable fluid collections seen. IMPRESSION: Osteomyelitis involving the first- fifth metatarsals and all 3 cuneiform bones. Pattern is not substantially different from the January MRI examination.
[2019-04-13] MEDS: FLUTICASONE 50MCG NASAL SPRAY NAS SCH ×2 (12:56→20:22)
[2019-04-13] MEDS: NA CHLORIDE 0.9% 1,000 ML IV SCH (13:06)
--- NOTE | 2019-04-13 13:38 | EKG ---
Test Date: 2019-04-12 Test Time: 20:08:24 Analytical Manager: ANIBAL MEASUREMENT RESULTS: Intervals: Rate: 114 WA: 134 QRSD: 84 QT: 334 QTc: 460 [place]: P: 42 WA: 134 QRS: 51 T: 17 INTERPRETIVE STATEMENTS: Sinus tachycardia Otherwise normal ECG Compared to ECG 02/08/2019 03:37:20 No significant changes Electronically Signed On 04-13-19 13:34:17 CDT by Emory Olivarez
--- NOTE | 2019-04-13 15:43 | CON ---
Date of Consultation: 04/13/2019 Reason For Consultation: Infection, left foot. History Of Present Illness: The patient is a 34-year-old gentleman whom I saw about 3 weeks ago in [facility] because of a diabetic foot ulcer with osteo. He had been treated with IV ant ibiotics. I had ordered an MRI, which was not done until he came to the ER yesterday. We had starte d him on antibiotics. He had been in the long-term acute care facility for IV antibiotics and he was to follow up with us here in the [facility]; but he started having fever and increasing pa in and he went to the ER, was admitted, and I was consulted. He does have a right below-knee amputat ion for diabetic infection and nonhealing wounds. He is currently awake and alert. No fever or chil ls currently. Minimal discharge from the wound. Review of Systems: Otherwise unremarkable. Past Medical History: Significant for bipolar disorder, diabetes type 2, schizoaffective disorder, h istory of osteo in the right lower extremity, tobacco and marijuana use, right leg amputation, circum cision. Allergies: CLINDAMYCIN, DEMEROL, MORPHINE, VANCOMYCIN. Social History: Patient uses drugs and tobacco. Denies drinking. Family History: Significant for diabetes. Physical Examination: Vital Signs: Show slight tachycardia. Blood pressure is slightly high. He is afebrile. General: He is awake, alert, oriented x3. Head and Neck: Cranial nerves 2 through 12 are grossly within normal limits. No neck masses. No JV D. Throat clear. Neck is supple. Chest: Clear. Heart: S1, S2. Abdomen: Soft. Extremities: Left lower extremity has palpable dorsalis pedis and posterior tibial pulses; however, the foot appears swollen. There is some pus coming from the wound on the lateral aspect of the left foot, midfoot region. There is some skin on top. There is some warmth and edema present as wel l. Laboratory Data: His white count on admission was 13.2 with a left shift. Sed rate was 92. Current ly, his white count is 8.6. His INR is 1.01. His electrolytes reviewed, showed potassium was 3.1. Patient had a foot MRI, which was reviewed and showed extensive midfoot infectious inflammatory zapata es, osteomyelitis involving the 1st through 5th metatarsals and all 3 cuneiform bones. Pattern was n ot substantially different from the MRI examination. His Dopplers showed left common femoral, left s uperficial femoral, left popliteal arteries to be biphasic. The left dorsalis pedis and posterior ti bial arteries were triphasic. No occlusion was seen. No high-grade stenosis was visualized. His ve nous Doppler showed no DVT. His foot x-ray showed partial amputation involving the 5th metatarsal, s oft tissue ulceration, cortical irregularity involves the distal 5th metatarsal suspicious for osteo, bony fragmentation involving the base of the 2nd, 3rd, and 4th metatarsals, which may indicate neuro pathic joint. Assessment: Left foot infected wound with osteo, neuropathic joint. Recommendation: IV antibiotics. We will debride the wound and try to salvage this limb as long as w e can, but the patient will need at least 6 weeks more of IV antibiotics based on the cultures and al so hyperbaric oxygen to give him the best chance of salvaging the limb and if that is not successful, unfortunately the patient will benefit from an amputation down the road. Plan of care discussed wit h the patient. We will proceed with a debridement tomorrow. The patient understands the risks, benefits, and alternatives and agrees to procedure. PRECIOUS/MODSg Voice ID: [id number] Report ID: [id number]
--- NOTE | 2019-04-13 16:55 | P.PN ---
Subjective Date of Service: 04/13/19 Patient seen and examined at bedside. No family at bedside. Chart reviewed and case discussed with nursing staff. Continues to complain of pain No acute events noted overnight Review of Systems 10-point ROS is otherwise unremarkable Physical Examination - Vital Signs Temperature: 97 F Blood Pressure: 139/92 Pulse: 103 Respirations: 18 Pulse Ox (%): 100 - Physical Exam General: Alert, In no apparent distress, Oriented x3 HEENT: Atraumatic, PERRLA, EOMI Neck: Supple, JVD not distended Respiratory: Clear to auscultation bilaterally, Normal air movement Cardiovascular: Regular rate/rhythm, Normal S1 S2 Gastrointestinal: Normal bowel sounds, No tenderness Musculoskeletal: No tenderness Integumentary: Diabetic ulcer, Other (Right BKA) Neurological: Normal speech, Normal tone, Normal affect Lymphatics: No axilla or inguinal lymphadenopathy - Studies Laboratory Data (last 24 hrs) 04/12/19 17:25: PT 11.9, INR 1.01, APTT 31.1 04/12/19 17:25: WBC 13.2 H D, Hgb 11.3 L, Hct 34.9 L, Plt Count 318 04/12/19 17:25: Sodium 133 L, Potassium 3.0 L, BUN 16, Creatinine 1.58 H, Glucose 183 H, Total Bilirubin 0.2, AST 8 L, ALT 17, Alkaline Phosphatase 177 H Microbiology Data (last 24 hrs): 04/12/19 17:10 Wound - Left Foot Gram Stain - Final Assessment And Plan - Current Problems (Diagnosis) (1) Osteomyelitis Onset Date: 09/27/16 Current Visit: No Status: Resolved Plan: Osteomyelitis of the left 2nd through 5th metatarsal. Patient was recently discharged to and LTAC ([facility] in [place]) for 6 weeks of IV antibiotics. -foot x-ray his suspicious for osteomyelitis in the 5th metatarsal. MRI of the foot done, shows osteomyelitis of the 1st through the 5th metatarsals, similar to imaging from January. - patient allergic to vancomycin. There was a trial at last visit, patient refused due to diarrhea/headache/vomiting, even after was explained to patient that these are side effects and not allergies. Cultures from prior visit positive for MRSA. Cultures pending this visit. -continue IV antibiotic -general surgery consulted, recommendations appreciated. Patient is pending surgical debridement tomorrow. -will call and confirm and [facility] in [place] if patient received hyperbaric treatment at the last day. -patient will likely require 6 more weeks of IV antibiotics with hyperbaric treatment versus surgical intervention. social work consulted Qualifiers: Osteomyelitis type: unspecified type Osteomyelitis location: foot Laterality: left Qualified Code(s): M86.9 - Osteomyelitis, unspecified (2) Cellulitis Current Visit: Yes Status: Acute Plan: Continue IV antibiotics -follow up cultures Qualifiers: Site of cellulitis: extremity Site of cellulitis of extremity: lower extremity Laterality: left Qualified Code(s): L03.116 - Cellulitis of left lower limb (3) Ulcer of left foot due to type 2 diabetes mellitus Current Visit: No Status: Acute (4) Bipolar 1 disorder Onset Date: 09/27/16 Current Visit: No Status: Chronic (5) Diabetes mellitus Onset Date: 09/27/16 Current Visit: No Status: Chronic Plan: Uncontrolled - Accu-Cheks and sliding scale insulin. Monitor and adjust as needed - he will need strict blood sugar control Qualifiers: Diabetes mellitus type: type 2 Diabetes mellitus terminal computer operator insulin use: with usp use Diabetes mellitus complication status: with skin complications Diabetes mellitus complication detail: with foot ulcer Qualified Code(s): E11.621 - Type 2 diabetes mellitus with foot ulcer; L97.509 - Non-pressure chronic ulcer of other part of unspecified foot with unspecified severity; Z79.4 - intermediate (current) use of insulin (6) Nicotine dependence Onset Date: 12/02/17 Current Visit: No Status: Chronic Qualifiers: Nicotine product type: cigarettes (7) Schizoaffective disorder Onset Date: 09/27/16 Current Visit: No Status: Chronic Qualifiers: Schizoaffective disorder type: bipolar Qualified Code(s): F25.0 - Schizoaffective disorder, bipolar type (8) Complete below knee amputation of right lower extremity Onset Date: 07/24/17 Current Visit: No Status: Chronic Qualifiers: - Plan DVT prophylaxis: Hold chemical anticoagulation, surgery/debridement tomorrow GI prophylaxis: None Diet: Diabetic, NPO after midnight Disposition: Patient is pending debridement with general surgery tomorrow. Will likely need PICC line and another course of 6 weeks of IV antibiotics along with hyperbaric treatment. Social work on board for discharge planning
[2019-04-13] MEDS: Levofloxacin500mg IV 500 MG/100 ML BAG IV SCH (18:33)
--- NOTE | 2019-04-13 19:09 | P.HP ---
Certification for Inpatient Patient admitted to: Inpatient With expected LOS: >2 Midnights Patient will require the following post-hospital care: None Practitioner: I am a practitioner with admitting privileges, knowledge of patient current condition, hospital course, and medical plan of care. Services: Services provided to patient in accordance with Admission requirements found in Title 42 Section 412.3 of the Code of Federal Regulations Patient History Date of Service: 04/12/19 Reason for admission: Diabetic foot ulcer History of Present Illness: Patient is a 34-year-old gentleman who came to the hospital with a diabetic foot wound. Patient recently left [facility]. He had been treated with IV antibiotics. clinically, he has been doing okay until he started having more pain along with fever shakes and chills. He came to the hospital for further evaluation. In the emergency room he was noted to have low blood pressure with a leukocytosis. Decision was made to admit to the hospital for further evaluation. Patient has had a long-term issues with diabetic foot ulcers. He has been following up with wound healing Center. We will consult General surgery along with wound healing Center to reassess him. Allergies clindamycin Adverse Reaction (Verified 02/08/19 07:26) Nausea/Vomiting meperidine [From Demerol] Adverse Reaction (Verified 02/08/19 07:26) Nausea/Vomiting morphine Adverse Reaction (Verified 02/08/19 07:26) Nausea/Vomiting vancomycin Adverse Reaction (Verified 02/08/19 07:26) Nausea/Vomiting Home Medications: Acetaminophen with Codeine [Acetaminophen-Cod #3 Tablet] 1 tab PO Q6H PRN Amantadine HCl [Amantadine] 100 mg PO BID 04/13/19 Doxycycline Hyclate [Vibramycin] 100 mg PO BID 04/13/19 Duloxetine HCl [Cymbalta] 30 mg PO DAILY 04/13/19 Duloxetine HCl [Cymbalta] 60 mg PO DAILY 04/13/19 Gabapentin 800 mg PO TID 04/13/19 Insulin 70/30 NPH/Reg Human [Novolin 70/30*] 30 unit SQ BEDTIME 04/13/19 Insulin 70/30 NPH/Reg Human [Novolin 70/30*] 50 units SQ DAILY 04/13/19 Mirtazapine 15 mg PO BEDTIME 04/13/19 - Past Medical/Surgical History Has patient received pneumonia vaccine in the past: No Diabetic: Yes -: Bipolar disorder -: Diabetes mellitus type 2 -: Schizoaffective disorder -: History of osteomyelitis leading to right partial foot amputation -: Tobacco abuse -: Marijuana use -: Diabetic neuropathy -: Right foot amputation -: Circumcision Psychosocial/ Personal History: The patient is single. He has no children. The patient is disabled. - Family History Mother Medical History: Hypertension, Diabetes Father Medical History: Diabetes Brother Medical History: Hypertension, Diabetes - Social History Smoking Status: Current every day smoker Alcohol use: No CD- Drugs: Yes Caffeine use: Yes Place of Residence: Home Review of Systems 10-point ROS is otherwise unremarkable Physical Examination - Vital Signs Temperature: 97 F Blood Pressure: 139/92 Pulse: 103 Respirations: 18 Pulse Ox (%): 100 - Physical Exam General: Alert, In no apparent distress, Oriented x3 HEENT: Atraumatic, PERRLA, Mucous membr. moist/pink, EOMI, Sclerae nonicteric Neck: Supple, 2+ carotid pulse no bruit, No LAD, Without JVD or thyroid abnormality Respiratory: Clear to auscultation bilaterally, Normal air movement Cardiovascular: Regular rate/rhythm, Normal S1 S2 Gastrointestinal: Normal bowel sounds, Soft and benign, Non-distended, No tenderness Musculoskeletal: No clubbing, No swelling, No tenderness, Other ( Right BKA; left diabetic foot wound) Integumentary: No rashes Neurological: Normal speech, Normal strength at 5/5 x4 extr, Normal tone, Sensation intact, Cranial nerves 3-12 intact, Normal affect Lymphatics: No axilla or inguinal lymphadenopathy - Studies Microbiology Data (last 24 hrs): 04/12/19 17:10 Wound - Left Foot Gram Stain - Final Assessment & Plan - Problems (Diagnosis) (1) Cellulitis Current Visit: Yes Status: Acute Qualifiers: Site of cellulitis: extremity Site of cellulitis of extremity: lower extremity Laterality: left Qualified Code(s): L03.116 - Cellulitis of left lower limb (2) Ulcer of left foot due to type 2 diabetes mellitus Current Visit: No Status: Acute (3) Bipolar 1 disorder Onset Date: 09/27/16 Current Visit: No Status: Chronic (4) Diabetes mellitus Onset Date: 09/27/16 Current Visit: No Status: Chronic Qualifiers: Diabetes mellitus type: type 2 Diabetes mellitus termite inspector insulin use: with termite inspector use Diabetes mellitus complication status: with skin complications Diabetes mellitus complication detail: with foot ulcer Qualified Code(s): E11.621 - Type 2 diabetes mellitus with foot ulcer; L97.509 - Non-pressure chronic ulcer of other part of unspecified foot with unspecified severity; Z79.4 - termite inspector (current) use of insulin (5) MRSA (methicillin resistant staph aureus) culture positive Current Visit: No Status: Resolved (6) Osteomyelitis Onset Date: 09/27/16 Current Visit: No Status: Resolved Qualifiers: Osteomyelitis type: unspecified type Osteomyelitis location: foot Laterality: left Qualified Code(s): M86.9 - Osteomyelitis, unspecified - Plan 1. Continue with IV antibiotic 2. Continue with local wound care 3. Wound care consultation/surgical consultation 4. Gentle IV hydration 5. Monitor CBC 6. Strict blood sugar monitoring 7. Pain control 8. GI and DVT prophylaxis - Advance Directives Does patient have a Living Will: No Does patient have a Durable POA for Healthcare: No - Code Status/Comfort Care Code Status Assessed: Yes Code Status: Full Code Critical Care: No Time Spent Managing PTS Care (In Minutes): 45
[2019-04-14] MEDS: NA CHLORIDE 0.9% 1,000 ML IV SCH ×5 (00:25→22:48)
[2019-04-14] MEDS: HYDROMORPHONE HCL 0.5 MG/0.5 ML INJ IV PRN ×5 (00:26→21:33)
[2019-04-14] MEDS: INSULIN -REGULAR HUMAN 50 UNIT/0.5 ML ML SQ SCH ×4 (07:30→20:54)
[2019-04-14] MEDS ORDERED: NA CHLORIDE 0.9% 1,000 ML ONE (08:24)
[2019-04-14] MEDS ORDERED: BUPIVACAINE 0.5% PF 10 ML VIAL ONE (08:32)
[2019-04-14] MEDS ORDERED: COLLAGENASE 30 GM OINTMENT TOP ONE (08:32)
[2019-04-14] MEDS ORDERED: FENTANYL CITR 100 MCG/2 ML ONE (08:53)
[2019-04-14] MEDS ORDERED: LIDOCAINE 1% MPF 5 ML VIAL ONE (08:53)
[2019-04-14] MEDS ORDERED: MIDAZOLAM HCL 2 MG/2 ML INJ ONE (08:53)
[2019-04-14] MEDS ORDERED: PROPOFOL 200 MG/20 ML VIAL IV ONE (08:53)
--- NOTE | 2019-04-14 09:20 | P.OP ---
Preoperative diagnosis: Infected Wound Left Foot with Osteo Postoperative diagnosis: same Primary procedure: I and D and Debridement Left Foot Infected Wound Anesthesia: Generasl Estimated blood loss: min Specimen: tissue and bone for C&S Findings: as above Complications: None Transferred to: Recovery Room Condition: Good
[2019-04-14] MEDS ORDERED: KETOROLAC 30 MG/ML INJ ONE (09:25)
[2019-04-14] MEDS ORDERED: ONDANSETRON 4 MG/2 ML VIAL ONE (09:31)
[2019-04-14] MEDS: HYDROMORPHONE HCL 1 MG/ML INJ ONE ×2 (09:44→09:49)
[2019-04-14] MEDS: FLUTICASONE 50MCG NASAL SPRAY NAS SCH ×2 (13:15→20:19)
--- NOTE | 2019-04-14 15:11 | P.PN ---
Subjective Date of Service: 04/14/19 Chief Complaint: Diabetic foot ulcer Subjective: Improving Patient seen and examined at bedside. No family at bedside. Chart reviewed and case discussed with nursing staff. Continues to complain of pain, improved. he is s/p debridement with Dr. Mosqueda No acute events noted overnight Review of Systems 10-point ROS is otherwise unremarkable Physical Examination - Vital Signs Temperature: 97 F Blood Pressure: 132/92 Pulse: 86 Respirations: 18 Pulse Ox (%): 100 - Physical Exam General: Alert, In no apparent distress HEENT: Atraumatic, PERRLA, EOMI Neck: Supple, JVD not distended Respiratory: Clear to auscultation bilaterally, Normal air movement Cardiovascular: Regular rate/rhythm, Normal S1 S2 Gastrointestinal: Normal bowel sounds, No tenderness Musculoskeletal: No tenderness Integumentary: No rashes, Diabetic ulcer (left foot; wound dressed/intact/dry) Neurological: Normal speech, Normal tone, Normal affect Lymphatics: No axilla or inguinal lymphadenopathy - Studies Microbiology Data (last 24 hrs): 04/12/19 17:10 Wound - Left Foot Gram Stain - Final Assessment And Plan - Current Problems (Diagnosis) (1) Osteomyelitis Onset Date: 09/27/16 Current Visit: No Status: Resolved Plan: Osteomyelitis of the left 2nd through 5th metatarsal. Patient was recently discharged to and [facility] ([facility] in [place]) for 6 weeks of IV antibiotics. -foot x-ray his suspicious for osteomyelitis in the 5th metatarsal. MRI of the foot done, shows osteomyelitis of the 1st through the 5th metatarsals, similar to imaging from January. - patient allergic to vancomycin. There was a trial at last visit, patient refused due to diarrhea/headache/vomiting, even after was explained to patient that these are side effects and not allergies. Cultures from prior visit positive for MRSA. Cultures pending this visit. -continue IV antibiotics -general surgery consulted, recommendations appreciated. Patient is s/p surgical debridement today. -patient will likely require 6 more weeks of IV antibiotics with hyperbaric treatment versus surgical intervention. social work consulted Qualifiers: Osteomyelitis type: unspecified type Osteomyelitis location: foot Laterality: left Qualified Code(s): M86.9 - Osteomyelitis, unspecified (2) Cellulitis Current Visit: Yes Status: Acute Plan: Continue IV antibiotics -follow up cultures Qualifiers: Site of cellulitis: extremity Site of cellulitis of extremity: lower extremity Laterality: left Qualified Code(s): L03.116 - Cellulitis of left lower limb (3) Ulcer of left foot due to type 2 diabetes mellitus Current Visit: No Status: Acute (4) Bipolar 1 disorder Onset Date: 09/27/16 Current Visit: No Status: Chronic (5) Diabetes mellitus Onset Date: 09/27/16 Current Visit: No Status: Chronic Plan: Uncontrolled - Accu-Cheks and sliding scale insulin. Monitor and adjust as needed - he will need strict blood sugar control Qualifiers: Diabetes mellitus type: type 2 Diabetes mellitus fpc insulin use: with petroleum terminal plant operator use Diabetes mellitus complication status: with skin complications Diabetes mellitus complication detail: with foot ulcer Qualified Code(s): E11.621 - Type 2 diabetes mellitus with foot ulcer; L97.509 - Non-pressure chronic ulcer of other part of unspecified foot with unspecified severity; Z79.4 - assisted (current) use of insulin (6) Nicotine dependence Onset Date: 12/02/17 Current Visit: No Status: Chronic Qualifiers: Nicotine product type: cigarettes (7) Schizoaffective disorder Onset Date: 09/27/16 Current Visit: No Status: Chronic Qualifiers: Schizoaffective disorder type: bipolar Qualified Code(s): F25.0 - Schizoaffective disorder, bipolar type (8) Complete below knee amputation of right lower extremity Onset Date: 07/24/17 Current Visit: No Status: Chronic Qualifiers: - Plan DVT prophylaxis: Lovenox starting tomorrow GI prophylaxis: None Diet: Diabetic Disposition: Will need PICC line and another course of 6 weeks of IV antibiotics along with hyperbaric treatment. Social work on board for discharge planning
--- NOTE | 2019-04-14 17:41 | RAD REPORT ---
EXAM DESCRIPTION: RAD - Chest Single View - 04/14/2019 5:33 pm CLINICAL HISTORY: Picc line placement COMPARISON: Chest Single View dated 04/12/2019; Chest Single View dated 07/21/2018; Chest Single View dated 09/28/2016 FINDINGS: Portable chest was obtained following placement of a left upper extremity PICC line. The c atheter tip projects over the SVC.
[2019-04-14] MEDS: Levofloxacin500mg IV 500 MG/100 ML BAG IV SCH (20:19)
--- NOTE | 2019-04-14 20:53 | OP ---
Date of Procedure: 04/14/2019 Surgeon: Javier Mosqueda MD Preoperative Diagnosis: Infected wound, left foot with osteomyelitis. Postoperative Diagnosis: Infected wound, left foot with osteomyelitis. Procedure: Incision and drainage and debridement of left foot infected wound to bone. Estimated Blood Loss: Minimal. Specimen: Infected tissue and bone. Finding: As above. Anesthesia: General. Complications: None. Disposition: The patient tolerated the procedure in stable condition and taken to Recovery in good g eneral condition. Procedure In Detail: The patient was brought to the OR and placed in supine position. General anest hesia was begun. The patient was prepped and draped in usual sterile fashion. Marcaine 0.5% was inf iltrated locally. A 15-blade was used to cut off all the necrotic tissue around the edges of the ___ tissue present in the wound bed, excised, sent to pathology for tissue cultures. There was b one present, which was debrided with a rongeur. The area of debridement was approximately 3 x 3 cm. Wound irrigated, bleeding controlled with cautery and then collagenase dressing was applied. Patien t tolerated the procedure in stable condition and taken to Recovery in good general condition. PRECIOUS/NAIMA Voice ID: [id number] Report ID: [id number]
[2019-04-15] MEDS: HYDROMORPHONE HCL 0.5 MG/0.5 ML INJ IV PRN ×6 (01:36→20:44)
[2019-04-15] MEDS: INSULIN -REGULAR HUMAN 50 UNIT/0.5 ML ML SQ SCH ×4 (07:30→20:46)
[2019-04-15] MEDS: FLUTICASONE 50MCG NASAL SPRAY NAS SCH ×2 (08:16→20:45)
[2019-04-15] MEDS: NA CHLORIDE 0.9% 1,000 ML IV SCH ×3 (08:17→16:35)
[2019-04-15 08:38] LABS: Absolute Lymphocytes (CBC) 2.5 K/uL (0.7-4.9); Basophils % 0.9 % (0-1.3); Hematocrit 28.4 % (39.6-49.0); MPV 7.2 fL (7.6-11.3); RBC Red Blood Cell Count 3.75 M/uL (4.33-5.43)
[2019-04-15 08:54] LABS: BUN Blood Urea Nitrogen 13 mg/dL (7-18); Bicarbonate 27 mmol/L (21-32); Glucose Level 164 mg/dL (74-106); Potassium 3.9 mmol/L (3.5-5.1); Sodium Level 139 mmol/L (136-145)
[2019-04-15] MEDS: COLLAGENASE 30 GM OINTMENT TOP SCH (12:31)
--- NOTE | 2019-04-15 14:35 | P.PN ---
Subjective Date of Service: 04/15/19 Chief Complaint: Diabetic foot ulcer Patient seen and examined at bedside. No family at bedside. Chart reviewed and case discussed with nursing staff. Continues to complain of pain, improved. he is s/p debridement with Dr. Mosqueda No acute events noted overnight Review of Systems 10-point ROS is otherwise unremarkable Physical Examination - Vital Signs Temperature: 97.6 F Blood Pressure: 147/85 Pulse: 85 Respirations: 18 Pulse Ox (%): 98 - Physical Exam General: Alert, In no apparent distress, Oriented x3 HEENT: Atraumatic, PERRLA, EOMI Neck: Supple, JVD not distended Respiratory: Clear to auscultation bilaterally, Normal air movement Cardiovascular: Regular rate/rhythm, Normal S1 S2 Gastrointestinal: Normal bowel sounds, No tenderness Musculoskeletal: Other (wound dressed; dressing dry/intact) Integumentary: No rashes Neurological: Normal speech, Normal tone, Normal affect Lymphatics: No axilla or inguinal lymphadenopathy - Studies Microbiology Data (last 24 hrs): 04/12/19 17:10 Wound - Left Foot Gram Stain - Final 04/12/19 17:10 Wound - Left Foot Culture & Sensitivity - Final Enterobacter Aerogenes Streptococcus Agalactiae Grp B Assessment And Plan - Current Problems (Diagnosis) (1) Osteomyelitis Onset Date: 09/27/16 Current Visit: No Status: Resolved Plan: Osteomyelitis of the left 2nd through 5th metatarsal. Patient was recently discharged to [facility] ([place] in [place]) for 6 weeks of IV antibiotics. He return this time with similar imaging findings. -foot x-ray suspicious for osteomyelitis in the 5th metatarsal. MRI of the foot done, shows osteomyelitis of the 1st through the 5th metatarsals, similar to imaging from January. - patient allergic to vancomycin. There was a trial at last visit, patient refused due to diarrhea/headache/vomiting, even after was explained to patient that these are side effects and not allergies. Cultures from prior visit positive for MRSA. Cultures pending this visit. -continue IV antibiotics -general surgery consulted, recommendations appreciated. Patient is s/p surgical debridement. Recommending another 6 wk course of IV antibiotics and hyperbaric treatment. -patient will require 6 more weeks of IV antibiotics with hyperbaric treatment versus surgical intervention. social work on board. Qualifiers: Osteomyelitis type: unspecified type Osteomyelitis location: foot Laterality: left Qualified Code(s): M86.9 - Osteomyelitis, unspecified (2) Cellulitis Current Visit: Yes Status: Acute Plan: Continue IV antibiotics -cultures positive for Streo agalactaciae Grp B and Enterobacter Aerogenes Qualifiers: Site of cellulitis: extremity Site of cellulitis of extremity: lower extremity Laterality: left Qualified Code(s): L03.116 - Cellulitis of left lower limb (3) Ulcer of left foot due to type 2 diabetes mellitus Current Visit: No Status: Acute (4) Bipolar 1 disorder Onset Date: 09/27/16 Current Visit: No Status: Chronic (5) Diabetes mellitus Onset Date: 09/27/16 Current Visit: No Status: Chronic Plan: Uncontrolled - Accu-Cheks and sliding scale insulin. 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 (6) Nicotine dependence Onset Date: 12/02/17 Current Visit: No Status: Chronic Qualifiers: Nicotine product type: cigarettes (7) Schizoaffective disorder Onset Date: 09/27/16 Current Visit: No Status: Chronic Qualifiers: Schizoaffective disorder type: bipolar Qualified Code(s): F25.0 - Schizoaffective disorder, bipolar type (8) Complete below knee amputation of right lower extremity Onset Date: 07/24/17 Current Visit: No Status: Chronic Qualifiers: - Plan DVT prophylaxis: Lovenox starting tomorrow GI prophylaxis: None Diet: Diabetic Disposition: He will need another course of 6 weeks of IV antibiotics along with hyperbaric treatment. Social work on board for discharge planning for LTAC
--- NOTE | 2019-04-15 15:06 | PN ---
Date of Progress Note: 04/15/2019 Patient is awake, alert, no complaints. Vital signs stable, afebrile. Cultures from OR pending but his cultures that were done prior to surgery grew out enterobacter and streptococcus, sensitive to Le vaquin. He is on that. His dressing is clean, dry, and intact. Assessment: Left foot infection status post I and D and debridement, osteomyelitis. Recommendations: IV antibiotics. Wound care as ordered. Discharge planning, will transfer to LTAC f or IV antibiotics and hyperbarics. /MODL Voice ID: [id number] Report ID: [id number]
[2019-04-15] MEDS: Levofloxacin500mg IV 500 MG/100 ML BAG IV SCH (20:44)
[2019-04-15] MEDS: DULOXETINE 30 MG CAP PO SCH (20:50)
[2019-04-15] MEDS: GABAPENTIN 400 MG CAP PO SCH (20:50)
[2019-04-16] MEDS: HYDROMORPHONE HCL 0.5 MG/0.5 ML INJ IV PRN ×6 (00:45→20:29)
[2019-04-16] MEDS: NA CHLORIDE 0.9% 1,000 ML IV SCH ×2 (04:38→14:48)
[2019-04-16] MEDS: FLUTICASONE 50MCG NASAL SPRAY NAS SCH ×2 (08:08→20:29)
[2019-04-16] MEDS: GABAPENTIN 400 MG CAP PO SCH ×3 (08:08→20:27)
[2019-04-16] MEDS: INSULIN -REGULAR HUMAN 50 UNIT/0.5 ML ML SQ SCH ×4 (08:09→20:41)
[2019-04-16] MEDS: COLLAGENASE 30 GM OINTMENT TOP SCH (08:09)
[2019-04-16] MEDS ORDERED: DULOXETINE 30 MG CAP PO SCH (09:00)
[2019-04-16 14:58] VITALS: O2SAT 98
[2019-04-16 19:29] VITALS: BP 158/98; TEMP 97.3
[2019-04-16] MEDS: Levofloxacin500mg IV 500 MG/100 ML BAG IV SCH (20:28)
[2019-04-16] MEDS: DULOXETINE 30 MG CAP PO SCH (20:28)
== END 2019-04-16 20:48 | DRG 629 ==
LOC: ER 15:09 → ERHOLD 19:09 → 4TH 20:26
PROVIDERS: ADMIT Family Medicine; ATTEND Family Medicine
PROC: 02HV33Z Insertion of Infusion Device into Superior Vena Cava, Percutaneous Approach (ICD-10-PCS; 2019-04-14)
PROC: 0QBP0ZZ Excision of Left Metatarsal, Open Approach (ICD-10-PCS; principal; 2019-04-14 08:30)
DX: E11.69 Type 2 diabetes mellitus with other specified complication (principal); M86.9 Osteomyelitis, unspecified; L03.116 Cellulitis of left lower limb; B95.1 Streptococcus, group B, as the cause of diseases classified elsewhere; B96.89 Other specified bacterial agents as the cause of diseases classified elsewhere; E11.621 Type 2 diabetes mellitus with foot ulcer; L97.529 Non-pressure chronic ulcer of other part of left foot with unspecified severity; E11.40 Type 2 diabetes mellitus with diabetic neuropathy, unspecified; E11.65 Type 2 diabetes mellitus with hyperglycemia; F17.210 Nicotine dependence, cigarettes, uncomplicated; Z89.431 Acquired absence of right foot; F25.0 Schizoaffective disorder, bipolar type; Z79.4 Long term (current) use of insulin; Z88.1 Allergy status to other antibiotic agents; Z88.5 Allergy status to narcotic agent
CPT/HCPCS: 36415; 71045; 80048; 80076; 81003; 81015; 82962; 83605; 84145; 85025; 85610; 85652; 85730; 86140; 87040; 87070; 87077; 87086; 87088; 87176; 87186; 87205; 87493; 93005; 93926; 93971; 94760; 96361; 96365; 96375; 99285; J1170; J2250; J2405; J2543; J2704; J3010; J3590; J7030

== ENCOUNTER 2019-05-16 11:15 | Emergency (ER) | payer OTHER ==
--- OUTSIDE RECORDS SUMMARY | 2019-05-16 11:18 | XMS REPORT | Clinical Summary ---
:1985 Author Organization [facility] Address [address] [place] [address] Care Team Providers Name Role Phone Asked, [...] 0 Active (NEURONTIN) 800 mg mouth 3 tablet (three) times a day. HYDROcodone-acetam Take 1 tablet 0 Active inophen (NORCO) by mouth every 10-325 mg per 6 (six) hours tablet as needed for moderate pain. lisinopril Take 20 mg by 0 Active (PRINIVIL,ZESTRIL) mouth daily. 20 mg tablet lurasidone Take 120 mg by 0 11/19/19 Discontinued (LATUDA) 120 mg mouth nightly. 19 (Stop Taking at tablet Discharge) DULoxetine Take 60 mg by 0 11/19/19 Discontinued (CYMBALTA) 60 MG mouth daily. 19 (Stop Taking at capsule Discharge) insulin NPH Inject 50 0 11/19/19 Discontinued hum/reg insulin hm Units under 19 (Stop Taking at (NOVOLIN 70/30 the skin every Discharge) U-100 INSULIN morning. SUBQ) insulin NPH Inject 30 0 11/19/19 Discontinued hum/reg insulin hm Units under 19 (Stop Taking at (NOVOLIN 70/30 the skin Discharge) U-100 INSULIN nightly. SUBQ) buPROPion XL Take 300 mg by 0 11/19/19 Discontinued (WELLBUTRIN XL) mouth daily. 19 (Stop Taking at 300 MG 24 hr Discharge) tablet insulin 70/30 NPH Inject 55 10 mL 12 11/17/2018 12/18/19 and regular human Units under 19 (NovoLIN 70/30 the skin every U-100 Insulin) 100 morning for 30 unit/mL (70-30) days. injection insulin 70/30 NPH Inject 35 10 mL 12 11/16/2018 12/17/19 and regular human Units under 19 (NovoLIN 70/30 the skin daily U-100 Insulin) 100 before dinner unit/mL (70-30) for 30 days. injection DULoxetine Take 3 90 capsule 0 11/17/2018 12/18/19 (CYMBALTA) 30 MG capsules (90 19 capsule mg total) by mouth daily for 30 days. metroNIDAZOLE Take 1 tablet 30 tablet 0 11/18/2018 11/29/19 (FLAGYL) 500 MG (500 mg total) 19 tablet by mouth 3 (three) times a day for 10 days. ferrous sulfate Take 1 tablet 30 tablet 0 11/18/2018 12/19/19 (FERROUSUL) 325 (325 mg total) 19 (65 FE) MG tablet by mouth daily with breakfast for 30 days. Active Problems Problem Noted Date Hypotension 11/12/2018 Encounters Date Type Specialty Care Team Description 11/12/2018 - Hospital Encounter Nephrology Diamond Allen Hypotension, unspecified hypotension type (Primary Dx); 11/18/2018 MD Lewis Acute renal failure, unspecified acute renal failure type (HCC); Lyndon Singh, Carla; Metabolic acidosis; Noy Cassidy Anemia, unspecified type; MD Kole Chronic hypertension; Kody Steiner Controlled type 2 diabetes mellitus with other specified complication, with long-term current use of insulin (HCC); MD Bhavik Severe dehydration; Hypoalbuminemia 11/12/2018 Travel after 05/15/2018 Immunizations Name Administration Dates Next Due FLUCELVAX QUAD PF 11/13/2018 Social History Tobacco Use Types Packs/Day [...] Vital Signs Vital Sign Reading Time Taken Comments Blood Pressure 120/82 11/18/2018 4:19 PM PRINTING SERVICES COORDINATOR Pulse 134 11/18/2018 4:19 PM PRINTING SERVICES COORDINATOR Temperature 36 C (96.8 F) 11/18/2018 4:19 PM PRINTING SERVICES COORDINATOR Respiratory Rate 20 11/18/2018 4:19 PM PRINTING SERVICES COORDINATOR Oxygen Saturation 97% 11/18/2018 4:19 PM PRINTING SERVICES COORDINATOR Inhaled Oxygen Concentration - - Weight 95.7 kg (211 lb) 11/13/2018 7:03 AM PRINTING SERVICES COORDINATOR Height 175.3 cm (5' 9") 11/12/2018 7:56 PM PRINTING SERVICES COORDINATOR Body Mass Index 31.16 11/12/2018 7:56 PM PRINTING SERVICES COORDINATOR Plan of Treatment Health Maintenance Due Date Last Done Comments DIABETIC RETINAL EYE EXAM 1985 DIABETIC FOOT EXAM 1994 URINE MICROALBUMIN 1994 INFLUENZA VACCINE 04/15/2019 11/13/2018 Procedures Procedure Name Priority Date/Time Associated Comments Diagnosis POC GLUCOSE Routine 11/18/2018 4:35 Results for this PM PRINTING SERVICES COORDINATOR procedure are in the results section. POC GLUCOSE Routine 11/18/2018 12:19 Results for this PM PRINTING SERVICES COORDINATOR procedure are in the results section. POC GLUCOSE Routine 11/18/2018 8:30 Results for this AM PRINTING SERVICES COORDINATOR procedure are in the results section. POC GLUCOSE Routine 11/17/2018 9:02 Results for this PM PRINTING SERVICES COORDINATOR procedure are in the results section. POC GLUCOSE Routine 11/17/2018 5:54 Results for this PM PRINTING SERVICES COORDINATOR procedure are in the results section. POC GLUCOSE Routine 11/17/2018 12:26 Results for this PM PRINTING SERVICES COORDINATOR procedure are in the results section. POC GLUCOSE Routine 11/17/2018 7:45 Results for this AM PRINTING SERVICES COORDINATOR procedure are in the results section. POC GLUCOSE Routine 11/17/2018 1:54 Results for this AM PRINTING SERVICES COORDINATOR procedure are in the results section. POC GLUCOSE Routine 11/16/2018 8:55 Results for this PM PRINTING SERVICES COORDINATOR procedure are in the results section. CLOSTRIDIUM DIFFICILE Routine 11/16/2018 8:00 Results for this TOXIN PM PRINTING SERVICES COORDINATOR procedure are in the results section. POC GLUCOSE Routine 11/16/2018 5:32 Results for this PM PRINTING SERVICES COORDINATOR procedure are in the results section. POC GLUCOSE Routine 11/16/2018 12:05 Results for this PM PRINTING SERVICES COORDINATOR procedure are in the results section. POC GLUCOSE Routine 11/16/2018 8:32 Results for this AM PRINTING SERVICES COORDINATOR procedure are in the results section. POC GLUCOSE Routine 11/15/2018 9:02 Results for this PM PRINTING SERVICES COORDINATOR procedure are in the results section. POC GLUCOSE Routine 11/15/2018 4:44 Results for this PM PRINTING SERVICES COORDINATOR procedure are in the results section. POC GLUCOSE Routine 11/15/2018 12:07 Results for this PM PRINTING SERVICES COORDINATOR procedure are in the results section. HEMOGLOBIN A1C Routine 11/15/2018 10:03 Results for this AM PRINTING SERVICES COORDINATOR procedure are in the results section. POC GLUCOSE Routine 11/15/2018 10:01 Results for this AM PRINTING SERVICES COORDINATOR procedure are in the results section. POC GLUCOSE Routine 11/15/2018 7:58 Results for this AM PRINTING SERVICES COORDINATOR procedure are in the results section. ESTIMATED GFR Routine 11/15/2018 5:10 Results for this AM PRINTING SERVICES COORDINATOR procedure are in the results section. BASIC METABOLIC PANEL Routine 11/15/2018 5:10 Results for this AM PRINTING SERVICES COORDINATOR procedure are in the results section. HC COMPLETE BLD COUNT Routine 11/15/2018 5:10 Results for this W/AUTO DIFF AM PRINTING SERVICES COORDINATOR procedure are in the results section. POC GLUCOSE Routine 11/15/2018 12:29 Results for this AM PRINTING SERVICES COORDINATOR procedure are in the results section. POC GLUCOSE Routine 11/14/2018 9:38 Results for this PM PRINTING SERVICES COORDINATOR procedure are in the results section. POC GLUCOSE Routine 11/14/2018 6:32 Results for this PM PRINTING SERVICES COORDINATOR procedure are in the results section. POC GLUCOSE Routine 11/14/2018 3:53 Results for this PM PRINTING SERVICES COORDINATOR procedure are in the results section. POC GLUCOSE Routine 11/14/2018 11:57 Results for this AM PRINTING SERVICES COORDINATOR procedure are in the results section. POC GLUCOSE Routine 11/14/2018 7:14 Results for this AM PRINTING SERVICES COORDINATOR procedure are in the results section. POC GLUCOSE Routine 11/14/2018 6:35 Results for this AM PRINTING SERVICES COORDINATOR procedure are in the results section. HC COMPLETE BLD COUNT Routine 11/14/2018 4:45 Results for this W/AUTO DIFF AM PRINTING SERVICES COORDINATOR procedure are in the results section. ESTIMATED GFR Routine 11/14/2018 4:00 Results for this AM PRINTING SERVICES COORDINATOR procedure are in the results section. BASIC METABOLIC PANEL Routine 11/14/2018 4:00 Results for this AM PRINTING SERVICES COORDINATOR procedure are in the results section. POC GLUCOSE Routine 11/14/2018 3:05 Results for this AM PRINTING SERVICES COORDINATOR procedure are in the results section. POC GLUCOSE Routine 11/13/2018 8:54 Results for this PM PRINTING SERVICES COORDINATOR procedure are in the results section. POC GLUCOSE Routine 11/13/2018 5:31 Results for this PM PRINTING SERVICES COORDINATOR procedure are in the results section. POC GLUCOSE Routine 11/13/2018 12:13 Results for this PM PRINTING SERVICES COORDINATOR procedure are in the results section. ECHOCARDIOGRAM 2D Routine 11/13/2018 11:12 Results for this COMPLETE W MMODE AM PRINTING SERVICES COORDINATOR procedure are in SPECTRAL COLOR DOPPLER the results (06331) section. POC GLUCOSE Routine 11/13/2018 7:17 Results for this AM PRINTING SERVICES COORDINATOR procedure are in the results section. ESTIMATED GFR Routine 11/13/2018 6:06 Results for this AM PRINTING SERVICES COORDINATOR procedure are in the results section. BASIC METABOLIC PANEL Routine 11/13/2018 6:06 Results for this AM PRINTING SERVICES COORDINATOR procedure are in the results section. HC COMPLETE BLD COUNT Routine 11/13/2018 6:06 Results for this W/AUTO DIFF AM PRINTING SERVICES COORDINATOR procedure are in the results section. POC GLUCOSE Routine 11/12/2018 10:19 Results for this PM PRINTING SERVICES COORDINATOR procedure are in the results section. POC GLUCOSE Routine 11/12/2018 6:40 Results for this PM PRINTING SERVICES COORDINATOR procedure are in the results section. VITAMIN B12 LEVEL Routine 11/12/2018 12:40 Results for this PM PRINTING SERVICES COORDINATOR procedure are in the results section. TOTAL IRON BINDING Routine 11/12/2018 12:40 Results for this CAPACITY PM PRINTING SERVICES COORDINATOR procedure are in the results section. FOLATE LEVEL Routine 11/12/2018 12:40 Results for this PM PRINTING SERVICES COORDINATOR procedure are in the results section. FERRITIN LEVEL Routine 11/12/2018 12:40 Results for this PM PRINTING SERVICES COORDINATOR procedure are in the results section. BLOOD CULTURE, AEROBIC Routine 11/12/2018 7:40 Results for this & ANAEROBIC AM PRINTING SERVICES COORDINATOR procedure are in the results section. CREATINE KINASE, TOTAL Timed 11/12/2018 7:38 Results for this (CPK) AM PRINTING SERVICES COORDINATOR procedure are in the results section. RESPIRATORY PATHOGEN Routine 11/12/2018 7:38 Results for this PANEL AM PRINTING SERVICES COORDINATOR procedure are in the results section. BLOOD CULTURE, AEROBIC Routine 11/12/2018 7:38 Results for this & ANAEROBIC AM PRINTING SERVICES COORDINATOR procedure are in the results section. ECG 12-LEAD STAT 11/12/2018 7:37 AM PRINTING SERVICES COORDINATOR Procedure Note - Kody Steiner MD - 11/12/2018 4:14 AM PRINTING SERVICES COORDINATOR Emergency Department Provider Note Location: [facility] MAIN ED Patient ID: Raymundo Mcdowell [...] pressure medication today. History provided by: Patient photographic enlarger operator used: No Illness Severity: Severe Onset quality: Sudden Duration: EROSION CONTROL SPECIALIST. Timing: Constant Progression: Worsening Chronicity: New Context: [...] Surgical History Dental Past Family History Reviewed; ne Past Social History No drugs tob etoh; [...] ED Course as of Nov 12 735 [facility] Nov 12, 2018 0535 Discussed case with [...] ED Physician in the absence of a government sales manager: yes Previous ECG: Previous ECG: Compared [...] for further evaluation, case discussed with doctor tea plantation worker and pt accepted for admission. Labs ordered, reviewed, and interpreted by me. Pulse ox reviewed by me and interpreted as normal. dining room busser reviewed by me and interpreted as normal. [...] mL (1,000 mL intravenous New Bag 11/12/18 0641) docusate sodium (COLACE) capsule 100 mg (not [...] History obtained from patient and patient s efficiency manager. Prior records sought & summarized confirming history of: No past medical history on file. At least 1 MD bedside reassessment occurred to update patient, determine response to treatment & recheck the patent s wellbeing. INTERPRETATIONS (additional)/Amount and/or Complexity of Data Reviewed: I reviewed the Pulse Oximetry and it is wnl by my independent interpretation. I reviewed the wallet assembler on the patient (nl rate; q wave; [...] flush 10 mL, 10 mL, intravenous, Q12H CAS, Diamond Allen MD sodium chloride 0.9% flush 10 mL, 10 mL, intravenous, PRN, Diamond Allen MD No current outpatient medications on file. Disposition: Admission Condition: Serious Patient Progress: Unchanged Risk of complications, morbidity, or mortality is: Presenting problems: high Diagnostic procedures: high Management options: high Kody Steiner MD 11/12/[address] ABDOMEN PELVIS WO STAT 11/12/2018 5:10 AM PRINTING SERVICES COORDINATOR Results for this CONTRAST procedure are in the results section. URINALYSIS SCREEN AND Routine 11/12/2018 5:00 AM PRINTING SERVICES COORDINATOR Results for this MICROSCOPY, WITH REFLEX TO procedure are in the CULTURE results section. URINE CULTURE Routine 11/12/2018 5:00 AM PRINTING SERVICES COORDINATOR XR CHEST 1 VW PORTABLE STAT 11/12/2018 4:59 AM PRINTING SERVICES COORDINATOR B NATRIURETIC PEPTIDE STAT 11/12/2018 4:15 AM PRINTING SERVICES COORDINATOR TROPONIN STAT 11/12/2018 4:15 AM PRINTING SERVICES COORDINATOR ESTIMATED GFR STAT 11/12/2018 4:15 AM PRINTING SERVICES COORDINATOR LACTIC ACID LEVEL STAT 11/12/2018 4:15 AM PRINTING SERVICES COORDINATOR LIPASE LEVEL STAT 11/12/2018 4:15 AM PRINTING SERVICES COORDINATOR COMPREHENSIVE METABOLIC STAT 11/12/2018 4:15 AM PRINTING SERVICES COORDINATOR Results for this PANEL procedure are in the results section. HC COMPLETE BLD COUNT W/AUTO STAT 11/12/2018 4:15 AM PRINTING SERVICES COORDINATOR Results for this DIFF procedure are in the results section. [facility] CRITICAL CARE, E/M 30-74 Routine 11/12/2018 4:14 AM PRINTING SERVICES COORDINATOR Results for this MINUTES procedure are in the results section. ECG 12-LEAD STAT 11/12/2018 4:02 AM PRINTING SERVICES COORDINATOR after 05/15/2018 Results POC glucose (11/18/2018 4:35 PM PRINTING SERVICES COORDINATOR)Only the most recent of31 resultswithin the time period is included. POC glucose 252 (H) 65 - 99 mg/dL ADRYAN ENRIQUEZ Comment: [facility] Notified RN Meter ID: [id number] Patent Prosecution Paralegal: Nikita Anderson Specimen Performing Organization Address City/[facility] Phone Number [facility] DEPARTMENT OF PATHOLOGY AND [address] [place] [phone] C difficile toxin (11/16/2018 8:00 PM PRINTING SERVICES COORDINATOR) Pathologist [facility] Clostridium Positive for C. difficile toxin (A) [facility] difficile toxin Comment: HOSPITAL Specimen Information Specimen Source: Stool Specimen Site: Nonpreserved Specimen Stool - Nonpreserved Performing Organization Address City/[facility] Phone Number [facility] DEPARTMENT OF PATHOLOGY AND [address] [place] [phone] Hemoglobin A1c (11/15/2018 10:03 AM PRINTING SERVICES COORDINATOR) Hemoglobin A1C 13.6 (H) 4.0 - 5.6 % ADRYAN ENRIQUEZ Comment: HOSPITAL HbA1c cutoffs for diagnosing diabetes: 4.0% - 5.6%=normal 5.7% - 6.4%=increased risk for diabetes (prediabetes) >=6.5%=diabetes Goals for glycemic control (ADA 2016) < 7.0%Target for non adults with diabetes. More or less stringent targets may be appropriate for individual patients. <7.5% Target for Children and adolescents with type 1 diabetes. Specimen Blood Performing Organization Address City/State/Zipcode Phone Number [facility] DEPARTMENT OF PATHOLOGY AND [address] [place] [phone] [place] [address] Estimated GFR (11/15/2018 5:10 AM PRINTING SERVICES COORDINATOR)Only the most recent of4 resultswithin the time period is included. Pathologist [facility] Estimated GFR >=90 mL/min/1.73 [facility] Comment: m2 HOSPITAL CatergoryUnitsInterpretation G1 >=90 Normal or high G2 60-89Mildly decreased B6y26-14Oybrkk to moderately decreased U9w65-29Bpemduylhd to severely decreased G4 15-29Severely decreased G5 <15Kidney failure The eGFR was calculated using the Chronic Kidney Disease Epidemiology Collaboration (CKD-EPI) equation. Interpretation is based on recommendations of the National Kidney Foundation-Kidney Disease Outcomes Quality Initiative (NKF-KDOQI) published in 2014. Specimen Plasma specimen Performing Organization Address City/[facility]/Zipcode Phone Number [facility] DEPARTMENT OF PATHOLOGY AND [address] [place] [address] CBC with platelet and differential (11/15/2018 5:10 AM PRINTING SERVICES COORDINATOR)Only the most recent of4 resultswithin the time period is included. Pathologist [facility] WBC 9.57 4.50 - 11.00 [facility] RBC 5.25 4.40 - 6.00 [facility] HGB 10.7 (L) 14.0 - 18.0 [facility] g/dL [facility] HCT 36.7 (L) 41.0 - 51.0 % [facility] MCV 69.9 (L) 82.0 - 100.0 [facility] MCH 20.4 (L) 27.0 - 34.0 pg [facility] MCHC 29.2 (L) 31.0 - 37.0 [facility] gdL [facility] RDW - SD 44.4 37.0 - 55.0 [facility] MPV 9.7 8.8 - 13.2 fL [facility] Platelet count 330 150 - 400 k/uL [facility] Nucleated RBC 0.00 /100 WBC [facility] Neutrophils 57.7 39.0 - 69.0 % [facility] Lymphocytes 31.0 25.0 - 45.0 % [facility] Monocytes 8.0 0.0 - 10.0 % [facility] Eosinophils 2.0 0.0 - 5.0 % [facility] Basophils 0.8 0.0 - 1.0 % [facility] Immature granulocytes 0.5Comment: 0.0 - 1.0 % [facility] "Immature [facility] granulocytes" (promyelocytes , myelocytes, metamyelocytes ) Specimen Blood Performing Organization Address City/[facility] Phone Number [facility] DEPARTMENT OF PATHOLOGY AND [address] [place] [address] Basic metabolic panel (11/15/2018 5:10 AM PRINTING SERVICES COORDINATOR)Only the most recent of3 resultswithin the time period is included. Sodium 134 (L) 135 - 148 mEq/L [facility] Potassium 3.9 3.5 - 5.0 mEq/L [facility] Chloride 102 98 - 112 mEq/L [facility] CO2 20 (L) 24 - 31 mEq/L [facility] Anion gap 12@ANIO 7 - 15 mEq/L [facility] BUN 11 6 - 20 mg/dL [facility] Creatinine 0.96 0.70 - 1.20 mg/dL [facility] Glucose 364 (H) 65 - 99 mg/dL [facility] Calcium 8.8 8.3 - 10.2 mg/dL [facility] Specimen Plasma specimen Performing Organization Address City/[facility] Phone Number [facility] DEPARTMENT OF PATHOLOGY AND [address] [place] [address] Echocardiogram complete w contrast and 3D if needed (11/13/2018 11:12 AM PRINTING SERVICES COORDINATOR) Specimen Narrative Performed At [facility] Echocardiography Report [address] [place] [address] Pat.Name:RAYMUNDO MCDOWELL.ID:[id number] .Date: 11/13/2018Refer.MD:NOY CASSIDY MD Exam Time: 10:33:00 AM Study Type:Routine Echo Height:69inWeight: 211lb BSA: 2.12 m2 DOBAge:1985,33Y Sex: MALEBP:122/80 Sonogrphr: Aide Pal ROBINSON, RVSPat. Stat.:Inpatient Room:[facility] Study Status:Final Echo Event ID:[id number] Order ID:[id number] Reason for Study:Syncope without cardiac evidence Procedures:2D [...] PA systolic pressure. MEASUREMENTS: 2D Parasternal Long [place] Ds4 cmLVPWd1.1 cm LVOT 2.3 cmAo An2.3 cm LVIDd4.9 cmIndex2.3 cm/m Ao Rtd 3.6 cm Index1.7 cm/m LVIDs3.1 cm LV Icyw560.6 g(122-174) LV%fs 36.3 % LVM Index 89 g/m2 IVSd 1 cmRWT0.4 LA Sng Plane LA Area 20.7 cm2(8.8-23.4) LA Vol60.5 ml Index28.5 ml/m LA LngAx 5.7 cm RA Sng Plane RA Area 13.2 cm2(8.3-19.5) RA Vol30.2 ml Index14.2 ml/m RA LngAx 5.4 cm DOPPLER LVOT Stroke Vol LVOT 2.3 cmLVOT CO7.7 l/min LVOT TVI19.2 cmLVOT CI3.6 l/m/m2 LVOT Tm283 sqxfPM80 bpm LVOT SV 79.7 ml Signed 11/13/2018 12:07 PM Tone Orellana MD Procedure Note Interface, Radiology Results In - 11/13/2018 12:07 PM PRINTING SERVICES COORDINATOR Echocardiography Report [id number]Name: RAYMUNDO MCDOWELL.ID: [id number] .Date: 11/13/2018 Refer.MD: NOY CASSIDY MD Exam Time: 10:33:00 AM Study Type:Routine Echo Height: 69in Weight: 211lb BSA: 2.12 m2 Age: 6 1985,33Y Sex: MALE BP: 122/80 Sonogrphr: Aide Pal RDCS, RVSPat. Stat.:Inpatient Room: [facility] Study Status:Final Echo Event ID:[id number] Order ID: [id number] Reason for Study:Syncope without cardiac evidence Procedures:2D [...] PA systolic pressure. MEASUREMENTS: 2D Parasternal Long [place] Ds 4 cm LVPWd 1.1 cm [...] PM Tone Orellana MD Performing Organization Address City/State/Zipcode Phone Number [facility] [address] [place] [address] Total iron binding capacity (11/12/2018 12:40 PM PRINTING SERVICES COORDINATOR) Iron level 24 (L) 59 - 158 ug/dL [facility] Iron binding capacity 322 200 - 400 ug/dL [facility] % Saturation 7.5 (L) 20.0 - 40.0 % [facility] Specimen Plasma specimen Performing Organization Address [facility] Phone Number [facility] DEPARTMENT OF PATHOLOGY AND [address] [place] [phone] [address] Folate level (11/12/2018 12:40 PM PRINTING SERVICES COORDINATOR) Folate 14.9 4.8 - 24.2 ng/mL [facility] Specimen Serum Performing Organization Address [facility] Phone Number [facility] DEPARTMENT OF PATHOLOGY AND [address] [place] [phone] [address] Ferritin level (11/12/2018 12:40 PM PRINTING SERVICES COORDINATOR) Ferritin level <13 (A) 30 - 400 ng/mL [facility] Specimen Plasma specimen Performing Organization Address [facility] Phone Number [facility] DEPARTMENT OF PATHOLOGY AND [address] [place], [place] [phone] [address] [address] Vitamin B12 level (11/12/2018 12:40 PM PRINTING SERVICES COORDINATOR) Vitamin B12 307 211 - 946 [facility] Comment: pg/mL HOSPITAL Significant overlap exists between normal and deficiency states. However, most patients with deficiencies will have Serum B12 <200 pg/mL. Specimen Serum Performing Organization Address [facility] Phone Number [facility] DEPARTMENT OF PATHOLOGY AND [address] [place] [phone] [address] Blood culture, aerobic & anaerobic (11/12/2018 7:40 AM PRINTING SERVICES COORDINATOR)Only the most recent of2 resultswithin the time period is included. Pathologist [facility] Blood culture No growth after 5 days of incubation. [facility] isolate Comment: HOSPITAL Specimen Information Specimen Source: Blood Specimen Site: Arm, right Specimen Blood - Arm, right Performing Organization Address [facility] Phone Number [facility] DEPARTMENT OF PATHOLOGY AND [address] [place] [phone] [place] [phone] Respiratory pathogen panel (11/12/2018 7:38 AM PRINTING SERVICES COORDINATOR) Pathologist [facility] Respiratory Negative for all pathogens tested: [place] pathogen panel Negative for Adenovirus [facility] Negative for Coronavirus HKU1 [facility] Negative for Coronavirus NL63 Negative for [...] Specimen Nares - Left Performing Organization Address [facility] Phone Number [facility] DEPARTMENT OF PATHOLOGY AND [address] [place] [phone] [place] [phone] Creatine kinase, total (CPK) (11/12/2018 7:38 AM PRINTING SERVICES COORDINATOR) [facility] Creatine kinase 27 (L) 39 - 308 U/L [facility] Specimen Plasma specimen Performing Organization Address City/[facility] Phone Number [facility] DEPARTMENT OF PATHOLOGY AND [address] [place] [id number] [address] [address] Abdomen Pelvis Wo Contrast (11/12/2018 5:10 AM PRINTING SERVICES COORDINATOR) Specimen Narrative Performed At EXAMINATION:CT ABDOMEN PELVIS WO CONTRAST [facility] CLINICAL HISTORY:abd pain TECHNIQUE: Multiple axial [...] bladder or outlet obstruction. Otherwise unremarkable exam. [facility]-[id number] Procedure Note Interface, Radiology Results Incoming - 11/12/2018 5:19 AM PRINTING SERVICES COORDINATOR EXAMINATION: CT ABDOMEN PELVIS WO CONTRAST CLINICAL [...] bladder or outlet obstruction. Otherwise unremarkable exam. [facility]-[id number] Performing Organization Address City/State/Zipcode Phone Number [facility] [address] [place] [address] Urinalysis screen and microscopy, with reflex to culture (11/12/2018 5:00 AM PRINTING SERVICES COORDINATOR) Specimen site Catheterized [facility] Color, UA Straw [facility] Appearance, UA Clear [facility] Specific gravity, UA 1.011 1.001 - 1.035 [facility] pH, UA 6.0 5.0 - 8.5 [facility] Protein, UA 1+ (A) Negative [facility] Glucose, UA 3+ (A) Negative [facility] Ketones, UA Negative Negative [facility] Bilirubin, UA Negative Negative [facility] Blood, UA Negative Negative [facility] Nitrite, UA Negative Negative [facility] Urobilinogen, UA <2.0 <2.0 [facility] Leukocyte esterase, Negative Negative [facility] Epithelial cells, UA <1 /HPF [facility] WBC, UA <1 0 - 1 /HPF [facility] RBC, UA 5 0 - 5 /HPF [facility] Bacteria, UA None seen None seen [facility] Yeast, UA None seen [facility] Yeast with None seen [facility] pseudohyphae, [facility] Hyaline casts, UA 1 /LPF [facility] Specimen Urine Performing Organization Address City/[facility]/Zipcode Phone Number [facility] DEPARTMENT OF PATHOLOGY AND [address] [place] [phone] Urine culture (11/12/2018 5:00 AM PRINTING SERVICES COORDINATOR) Urine culture SEE COMMENTComment: [facility] Bacteriuria screen HOSPITAL negative. Specimen Performing Organization Address City/[facility]/Zipcode Phone Number [facility] DEPARTMENT OF PATHOLOGY AND [address] [place] [phone] XR Chest 1 Vw Portable (11/12/2018 4:59 AM PRINTING SERVICES COORDINATOR) Specimen Narrative Performed At EXAMINATION:XR CHEST 1 VW PORTABLE [facility] CLINICAL HISTORY:hypotension COMPARISON:None IMPRESSION: Slight eventration of right hemidiaphragm. No consolidations, effusions, or pneumothorax. Cardiomediastinal silhouette is within normal limits. No acute osseous abnormalities. [facility]-[id number] Procedure Note Hm Interface, Radiology Results Incoming - 11/12/2018 5:11 AM PRINTING SERVICES COORDINATOR EXAMINATION: XR CHEST 1 VW PORTABLE CLINICAL HISTORY: hypotension COMPARISON: None IMPRESSION: Slight eventration of right hemidiaphragm. No consolidations, effusions, or pneumothorax. Cardiomediastinal silhouette is within normal limits. No acute osseous abnormalities. [facility]-[id number] Performing Organization Address City/State/Zipcode Phone Number [facility] [address] [place] [phone] Troponin (11/12/2018 4:15 AM PRINTING SERVICES COORDINATOR) Troponin <0.30 0.00 - 0.30 [facility] Comment: ng/mL HOSPITAL 0.30 - 1.49 ng/mlMay indicate increased risk of acute coronary syndrome. >=1.5 ng/mlConsistent with acute myocardial infarction. The diagnostic value of a single normal or non-diagnostic result is questionable.Serial samples at 2-6 hour intervals are required to rule out acute myocardial injury. Specimen Plasma specimen Performing Organization Address City/[facility] Phone Number [facility] DEPARTMENT OF PATHOLOGY AND [address] [place] [phone] [place] [phone] B natriuretic peptide (11/12/2018 4:15 AM PRINTING SERVICES COORDINATOR) BNP 17 0 - 100 pg/mL [facility] Specimen Performing Organization Address [facility] [place] Phone Number [facility] DEPARTMENT OF PATHOLOGY AND [address] [place] [phone] [address] Lipase level (11/12/2018 4:15 AM PRINTING SERVICES COORDINATOR) Lipase 21 13 - 60 U/L [facility] Specimen Plasma specimen Performing Organization Address City/[facility]/Zipcode Phone Number [facility] DEPARTMENT OF PATHOLOGY AND [address] [place] [phone] [address] Lactic acid level (11/12/2018 4:15 AM PRINTING SERVICES COORDINATOR) Lactic acid 2.2 0.5 - 2.2 mmol/L [facility] Specimen Plasma specimen Performing Organization Address City/[facility]/Zipcode Phone Number [facility] DEPARTMENT OF PATHOLOGY AND [address] [address] Comprehensive metabolic panel (11/12/2018 4:15 AM PRINTING SERVICES COORDINATOR) Sodium 139 135 - 148 [facility] mEq/L [facility] Potassium 3.9 3.5 - 5.0 [facility] mEq/[facility] Chloride 106 98 - 112 mEq/L [facility] CO2 24 24 - 31 mEq/L [facility] Anion gap 9@ANIO 7 - 15 mEq/L [facility] BUN 23 (H) 6 - 20 mg/dL [facility] Creatinine 1.40 (H) 0.70 - 1.20 [facility] mg/dL [facility] Glucose 212 (H) 65 - 99 mg/dL [facility] Calcium 8.4 8.3 - 10.2 [facility] mg/dL [facility] Protein 5.9 (L) 6.3 - 8.3 g/dL [facility] Comment: [facility] [place] 4.6-7.0 g/dL 1 week 4.4-7.6 g/dL 7 months-1year5.1-7.3 g/dL 1-2 years5.6-7.5 g/dL >3 years6.0-8.0 g/dL 18-150 6.3-8.3 g/dL Albumin 2.7 (L) 3.5 - 5.0 g/dL [facility] A/G ratio 0.8 0.7 - 3.8 [facility] Alkaline phosphatase 103 40 - 129 U/L [facility] AST 11 10 - 50 U/L [facility] ALT 10 5 - 50 U/L [facility] Total bilirubin <0.2 0.0 - 1.2 [facility] mg/dL [facility] Specimen Plasma specimen Performing Organization Address City/State/Zipcode Phone Number [facility] DEPARTMENT OF PATHOLOGY AND [address] [address] CRITICAL CARE (11/12/2018 4:14 AM PRINTING SERVICES COORDINATOR) Narrative Performed At Kody Steiner MD 11/12/20187:37 [...] charts ECG 12 lead (11/12/2018 4:02 AM PRINTING SERVICES COORDINATOR) Ventricular rate 72 [facility] Atrial rate 72 [facility] NH interval 120 [facility] QRSD interval 92 [facility] QT interval 384 [facility] QTC interval 420 [facility] P axis 1 26 [facility] QRS axis 1 66 [facility] T wave axis -46 [facility] EKG impression Normal sinus [facility] rhythm-Inferior infarct , age undetermined-Abnormal ECG-No previous ECGs available-Electronicall y Signed By Anastacio OCONNOR, ([id number]) on 11/12/2018 11:06:56 PM Specimen Narrative Performed At Performing Organization Address City/State/Zipcode Phone Number [facility] MUSE [address] [place] [address] after 05/15/2018 Additional Health Concerns Infection Noted Time Resolved Time C.Difficile (E) 11/17/2018 3:38 PM PRINTING SERVICES COORDINATOR Insurance Payer Benefit Plan / Subscriber ID Effective Dates Phone Address Type Group MEDICARE MEDICARE PART A xxxxxxxxxxx 2008-Present [place], [place] Medicare AND B MEDICAID MEDICAID xxxxxxxxx 2011-Present Medicaid Advance Directives For more information, please contact: [phone] Type Date Recorded Patient Criminal Intelligence Analyst Explanation Advance Directives, Living Will 11/12/2018 5:45 AM and Medical Power of Field Technical Assistant
--- OUTSIDE RECORDS SUMMARY | 2019-05-16 11:20 | XMS REPORT ---
:1985 [facility] [address] [place] [address] [address] [place] [address] Care Team Providers Name Role Phone UNKNOWN, [...] Type Clinicians Facility Department ID 2017-12-16 Inpatient [facility] [id number] 09:23:00 2017-07-02 2017-07-07 [id number] 14:57:00 22:44:00 [place] Results Test Description Test [...] the Main Lab for Analysis. Comprehensive Metabolic [id number] 07:08:00 Test Item Value Reference Range Comments [...] race is not provided, and the patient is[place]Citizen [place], multiply by 1.212. If sex is not [...] the National Kidney Foundation,http://nkdep.nih .gov CBC with [id number] 06:48:00 Test Item Value Reference Range Comments [...] Lymph Abs (test code=ALYMPH) 4.5 K/cumm 0.5-4.6 [place] Abs (test code=AMONO) 0.6 K/cumm 0.0-1.2 Eos Abs (test code=AEOS) 0.18 K/cumm 0.00-0.74 Baso Abs (test code=ABASO) 0.1 K/cumm 0.00-0.21 Microcytosis (test code=MICRO) Slight Hypochromic (test code=HYPO) Slight POC Glucose, [id number] 19:07:00 Test Item Value Reference Range Comments POC Glucose (test 227 mg/dL 70-115 If you consider your patient code=POCGLUC) critically ill, the [place] Accu-Chek InformII metershould not be used for Glucose determinations.Draw a venous Glucose and send to the Main Lab for Analysis. POC Glucose, [id number] 16:11:00 Test Item Value Reference Range Comments POC Glucose (test 266 mg/dL 70-115 If you consider your patient code=POCGLUC) critically ill, the [place] Accu-Chek InformII metershould not be used for Glucose determinations.Draw a venous Glucose and send to the Main Lab for Analysis. POC Glucose, [id number] 11:36:00 Test Item Value Reference Range Comments POC Glucose (test 69 mg/dL 70-115 If you consider your patient code=POCGLUC) critically ill, the [place] Accu-Chek InformII metershould not be used for Glucose determinations.Draw a venous Glucose and send to the Main Lab for Analysis. POC Glucose, [id number] 07:45:00 Test Item Value Reference Range Comments POC Glucose (test 234 mg/dL 70-115 If you consider your patient code=POCGLUC) critically ill, the [place] Accu-Chek InformII metershould not be used for Glucose determinations.Draw a venous Glucose and send to the Main Lab for Analysis. POC Glucose, [id number] 19:15:00 Test Item Value Reference Range Comments POC Glucose (test 148 mg/dL 70-115 If you consider your patient code=POCGLUC) critically ill, the [place] Accu-Chek InformII metershould not be used for Glucose determinations.Draw a venous Glucose and send to the Main Lab for Analysis. POC Glucose, [id number] 15:37:00 Test Item Value Reference Range Comments POC Glucose (test 133 mg/dL 70-115 If you consider your patient code=POCGLUC) critically ill, the [place] Accu-Chek InformII metershould not be used for Glucose determinations.Draw a venous Glucose and send to the Main Lab for Analysis. POC Glucose, [id number] 11:10:00 Test Item Value Reference Range Comments POC Glucose (test 203 mg/dL 70-115 Notify RN or MDIf you consider code=POCGLUC) your patient critically ill, the [place] Accu-Chek InformII metershould not be used for Glucose determinations.Draw a venous Glucose and send to the Main Lab for Analysis. POC Glucose, [id number] 07:29:00 Test Item Value Reference Range Comments POC Glucose (test 261 mg/dL 70-115 Notify RN or MDIf you consider code=POCGLUC) your patient critically ill, the [place] Accu-Chek InformII metershould not be used for Glucose determinations.Draw a venous Glucose and send to the Main Lab for Analysis. POC Glucose, [id number] 19:32:00 Test Item Value Reference Range Comments POC Glucose (test 226 mg/dL 70-115 If you consider your patient code=POCGLUC) critically ill, the [place] Accu-Chek InformII metershould not be used for Glucose determinations.Draw a venous Glucose and send to the Main Lab for Analysis. POC Glucose, [id number] 15:58:00 Test Item Value Reference Range Comments POC Glucose (test 138 mg/dL 70-115 Notify RN or MDIf you consider code=POCGLUC) your patient critically ill, the [place] Accu-Chek InformII metershould not be used for Glucose determinations.Draw a venous Glucose and send to the Main Lab for Analysis. POC Glucose, [id number] 11:48:00 Test Item Value Reference Range Comments POC Glucose (test 154 mg/dL 70-115 Notify RN or MDIf you consider code=POCGLUC) your patient critically ill, the [place] Accu-Chek InformII metershould not be used for Glucose determinations.Draw a venous Glucose and send to the Main Lab for Analysis. POC Glucose, [id number] 07:23:00 Test Item Value Reference Range Comments POC Glucose (test 131 mg/dL 70-115 Notify RN or MDIf you consider code=POCGLUC) your patient critically ill, the [place] Accu-Chek InformII metershould not be used for Glucose determinations.Draw a venous Glucose and send to the Main Lab for Analysis. POC Glucose, [id number] 19:38:00 Test Item Value Reference Range Comments POC Glucose (test 160 mg/dL 70-115 If you consider your patient code=POCGLUC) critically ill, the [place] Accu-Chek InformII metershould not be used for Glucose determinations.Draw a venous Glucose and send to the Main Lab for Analysis. POC Glucose, [id number] 17:27:00 Test Item Value Reference Range Comments POC Glucose (test 191 mg/dL 70-115 If you consider your patient code=POCGLUC) critically ill, the [place] Accu-Chek InformII metershould not be used for Glucose determinations.Draw a venous Glucose and send to the Main Lab for Analysis. POC Glucose, [id number] 14:19:00 Test Item Value Reference Range Comments POC Glucose (test 252 mg/dL 70-115 If you consider your patient code=POCGLUC) critically ill, the [place] Accu-Chek InformII metershould not be used for Glucose determinations.Draw a venous Glucose and send to the Main Lab for Analysis. POC Glucose, [id number] 11:41:00 Test Item Value Reference Range Comments POC Glucose (test 114 mg/dL 70-115 If you consider your patient code=POCGLUC) critically ill, the [place] Accu-Chek InformII metershould not be used for Glucose determinations.Draw a venous Glucose and send to the Main Lab for Analysis. POC Glucose, [id number] 05:58:00 Test Item Value Reference Range Comments POC Glucose (test 347 mg/dL 70-115 If you consider your patient code=POCGLUC) critically ill, the [place] Accu-Chek InformII metershould not be used for Glucose determinations.Draw a venous Glucose and send to the Main Lab for Analysis. POC Glucose, [id number] 19:27:00 Test Item Value Reference Range Comments POC Glucose (test 334 mg/dL 70-115 Notify RN or MDIf you consider code=POCGLUC) your patient critically ill, the [place] Accu-Chek InformII metershould not be used for Glucose determinations.Draw a venous Glucose and send to the Main Lab for Analysis. POC Glucose, [id number] 15:02:00 Test Item Value Reference Range Comments POC Glucose (test 72 mg/dL 70-115 If you consider your patient code=POCGLUC) critically ill, the [place] Accu-Chek InformII metershould not be used for Glucose determinations.Draw a venous Glucose and send to the Main Lab for Analysis. POC Glucose, [id number] 12:14:00 Test Item Value Reference Range Comments POC Glucose (test 110 mg/dL 70-115 If you consider your patient code=POCGLUC) critically ill, the [place] Accu-Chek InformII metershould not be used for Glucose determinations.Draw a venous Glucose and send to the Main Lab for Analysis. POC Glucose, [id number] 06:03:00 Test Item Value Reference Range Comments POC Glucose (test 224 mg/dL 70-115 If you consider your patient code=POCGLUC) critically ill, the [place] Accu-Chek InformII metershould not be used for Glucose determinations.Draw a venous Glucose and send to the Main Lab for Analysis. POC Glucose, [id number] 19:29:00 Test Item Value Reference Range Comments POC Glucose (test 300 mg/dL 70-115 Notify RN or MDIf you consider code=POCGLUC) your patient critically ill, the [place] Accu-Chek InformII metershould not be used for Glucose determinations.Draw a venous Glucose and send to the Main Lab for Analysis. POC Glucose, [id number] 16:00:00 Test Item Value Reference Range Comments POC Glucose (test 283 mg/dL 70-115 Notify RN or MDIf you consider code=POCGLUC) your patient critically ill, the [place] Accu-Chek InformII metershould not be used for Glucose determinations.Draw a venous Glucose and send to the Main Lab for Analysis. RPR, [id number] 14:24:00 Test Item Value Reference Range Comments RPR (test code=RPR) Non-Reactive Non-Reactive POC Glucose, [id number] 11:09:00 Test Item Value Reference Range Comments [...] TSH (test code=TSH) 2.05 mIU/mL 0.270-4.200 Lipid [id number] 08:56:00 Test Item Value Reference Range Comments Cholesterol (test 215 mg/dL 0-200 code=CHOL) Triglycerides (test 370 mg/dL 9-200 code=TRIG) HDL (test code=HDL) 33 mg/dL 40-60 Chol/HDL (test 6.5 Ratio 0.0-5.0 code=CHOLPHDL) LDL, Calculated (test 108 0-130 (NOTE)RISK OF HEART code=LDLC) DISEASEPublished by Citizen Of [place] Heart AssociationAnalyte Optimal Boderline Increased RiskCHOL <200 200-239 >240TRIG <150 150-199 >200HDL Male: >60 <40HDL Female: >60 <50LDL <100 130-159 >160LDL NEAR OPTIMAL IS 100-129 VLDL (test code=VLDL) 74 mg/dL 5-40 LDL/HDL (test code=LDLPHDL) 3 POC Glucose, [id number] 05:44:00 Test Item Value Reference Range Comments POC Glucose (test 229 mg/dL 70-115 Notify RN or MDIf you consider code=POCGLUC) your patient critically ill, the [place] Accu-Chek InformII metershould not be used for Glucose determinations.Draw a venous Glucose and send to the Main Lab for Analysis. POC Glucose, [id number] 11:20:00 Test Item Value Reference Range Comments POC Glucose (test 160 mg/dL 70-115 If you consider your patient code=POCGLUC) critically ill, the [place] Accu-Chek InformII metershould not be used for Glucose determinations.Draw a venous Glucose and send to the Main Lab for Analysis. POC Glucose, [id number] 07:41:00 Test Item Value Reference Range Comments POC Glucose (test 121 mg/dL 70-115 If you consider your patient code=POCGLUC) critically ill, the [place] Accu-Chek InformII metershould not be used for Glucose determinations.Draw a venous Glucose and send to the Main Lab for Analysis. POC Glucose, [id number] 21:24:00 Test Item Value Reference Range Comments POC Glucose (test 108 mg/dL 70-115 If you consider your patient code=POCGLUC) critically ill, the [place] Accu-Chek InformII metershould not be used for Glucose determinations.Draw a venous Glucose and send to the Main Lab for Analysis. POC Glucose, [id number] 15:55:00 Test Item Value Reference Range Comments POC Glucose (test 160 mg/dL 70-115 Notify RN or MDIf you consider code=POCGLUC) your patient critically ill, the [place] Accu-Chek InformII metershould not be used for Glucose determinations.Draw a venous Glucose and send to the Main Lab for Analysis. POC Glucose, [id number] 11:21:00 Test Item Value Reference Range Comments POC Glucose (test 111 mg/dL 70-115 If you consider your patient code=POCGLUC) critically ill, the [place] Accu-Chek InformII metershould not be used for Glucose determinations.Draw a venous Glucose and send to the Main Lab for Analysis. POC Glucose, [id number] 08:06:00 Test Item Value Reference Range Comments POC Glucose (test 135 mg/dL 70-115 If you consider your patient code=POCGLUC) critically ill, the [place] Accu-Chek InformII metershould not be used for Glucose determinations.Draw a venous Glucose and send to the Main Lab for Analysis. POC Glucose, [id number] 22:43:00 Test Item Value Reference Range Comments POC Glucose (test 106 mg/dL 70-115 If you consider your patient code=POCGLUC) critically ill, the [place] Accu-Chek InformII metershould not be used for Glucose determinations.Draw a venous Glucose and send to the Main Lab for Analysis. POC Glucose, [id number] 16:42:00 Test Item Value Reference Range Comments POC Glucose (test 96 mg/dL 70-115 If you consider your patient code=POCGLUC) critically ill, the [place] Accu-Chek InformII metershould not be used for Glucose determinations.Draw a venous Glucose and send to the Main Lab for Analysis. POC Glucose, [id number] 11:10:00 Test Item Value Reference Range Comments POC Glucose (test 149 mg/dL 70-115 Notify RN or MDIf you consider code=POCGLUC) your patient critically ill, the [place] Accu-Chek InformII metershould not be used for Glucose determinations.Draw a venous Glucose and send to the Main Lab for Analysis. POC Glucose, [id number] 07:26:00 Test Item Value Reference Range Comments POC Glucose (test 124 mg/dL 70-115 If you consider your patient code=POCGLUC) critically ill, the [place] Accu-Chek InformII metershould not be used for Glucose determinations.Draw a venous Glucose and send to the Main Lab for Analysis. POC Glucose, [id number] 21:16:00 Test Item Value Reference Range Comments POC Glucose (test 164 mg/dL 70-115 Notify RN or MDIf you consider code=POCGLUC) your patient critically ill, the [place] Accu-Chek InformII metershould not be used for Glucose determinations.Draw a venous Glucose and send to the Main Lab for Analysis. POC Glucose, [id number] 16:34:00 Test Item Value Reference Range Comments POC Glucose (test 100 mg/dL 70-115 If you consider your patient code=POCGLUC) critically ill, the [place] Accu-Chek InformII metershould not be used for Glucose determinations.Draw a venous Glucose and send to the Main Lab for Analysis. POC Glucose, [id number] 11:06:00 Test Item Value Reference Range Comments POC Glucose (test 120 mg/dL 70-115 If you consider your patient code=POCGLUC) critically ill, the [place] Accu-Chek InformII metershould not be used for Glucose determinations.Draw a venous Glucose and send to the Main Lab for Analysis. POC Glucose, [id number] 07:30:00 Test Item Value Reference Range Comments POC Glucose (test 80 mg/dL 70-115 If you consider your patient code=POCGLUC) critically ill, the [place] Accu-Chek InformII metershould not be used for Glucose determinations.Draw a venous Glucose and send to the Main Lab for Analysis. POC Glucose, [id number] 21:17:00 Test Item Value Reference Range Comments POC Glucose (test 175 mg/dL 70-115 Notify RN or MDIf you consider code=POCGLUC) your patient critically ill, the [place] Accu-Chek InformII metershould not be used for Glucose determinations.Draw a venous Glucose and send to the Main Lab for Analysis. POC Glucose, [id number] 17:46:00 Test Item Value Reference Range Comments POC Glucose (test 128 mg/dL 70-115 If you consider your patient code=POCGLUC) critically ill, the [place] Accu-Chek InformII metershould not be used for Glucose determinations.Draw a venous Glucose and send to the Main Lab for Analysis. POC Glucose, [id number] 11:35:00 Test Item Value Reference Range Comments POC Glucose (test 134 mg/dL 70-115 If you consider your patient code=POCGLUC) critically ill, the [place] Accu-Chek InformII metershould not be used for Glucose determinations.Draw a venous Glucose and send to the Main Lab for Analysis. POC Glucose, [id number] 08:10:00 Test Item Value Reference Range Comments POC Glucose (test 220 mg/dL 70-115 If you consider your patient code=POCGLUC) critically ill, the [place] Accu-Chek InformII metershould not be used for Glucose determinations.Draw a venous Glucose and send to the Main Lab for Analysis. Comprehensive Metabolic [id number] 06:52:00 Test Item Value Reference Range Comments [...] race is not provided, and the patient isAfrican[place]Citizen [place], multiply by 1.212. If sex is not [...] the National Kidney Foundation,http://nkdep.nih .gov CBC with [id number] 06:34:00 Test Item Value Reference Range Comments [...] Lymph Abs (test code=ALYMPH) 2.4 K/cumm 0.5-4.6 [place] Abs (test code=AMONO) 0.7 K/cumm 0.0-1.2 Eos Abs (test code=AEOS) 0.19 K/cumm 0.00-0.74 Baso Abs (test code=ABASO) 0.1 K/cumm 0.00-0.21 Microcytosis (test code=MICRO) Slight POC Glucose, [id number] 20:28:00 Test Item Value Reference Range Comments POC Glucose (test 211 mg/dL 70-115 If you consider your patient code=POCGLUC) critically ill, the [place] Accu-Chek InformII metershould not be used for Glucose determinations.Draw a venous Glucose and send to the Main Lab for Analysis. POC Glucose, [id number] 17:09:00 Test Item Value Reference Range Comments POC Glucose (test 146 mg/dL 70-115 If you consider your patient code=POCGLUC) critically ill, the [place] Accu-Chek InformII metershould not be used for Glucose determinations.Draw a venous Glucose and send to the Main Lab for Analysis. POC Glucose, [id number] 11:53:00 Test Item Value Reference Range Comments POC Glucose (test 136 mg/dL 70-115 If you consider your patient code=POCGLUC) critically ill, the [place] Accu-Chek InformII metershould not be used for Glucose determinations.Draw a venous Glucose and send to the Main Lab for Analysis. POC Glucose, [id number] 07:57:00 Test Item Value Reference Range Comments POC Glucose (test 143 mg/dL 70-115 If you consider your patient code=POCGLUC) critically ill, the [place] Accu-Chek InformII metershould not be used for Glucose determinations.Draw a venous Glucose and send to the Main Lab for Analysis. POC Glucose, [id number] 20:38:00 Test Item Value Reference Range Comments POC Glucose (test 152 mg/dL 70-115 Notify RN or MDIf you consider code=POCGLUC) your patient critically ill, the [place] Accu-Chek InformII metershould not be used for Glucose determinations.Draw a venous Glucose and send to the Main Lab for Analysis. POC Glucose, [id number] 16:49:00 Test Item Value Reference Range Comments POC Glucose (test 171 mg/dL 70-115 Notify RN or MDIf you consider code=POCGLUC) your patient critically ill, the [place] Accu-Chek InformII metershould not be used for Glucose determinations.Draw a venous Glucose and send to the Main Lab for Analysis. POC Glucose, [id number] 11:10:00 Test Item Value Reference Range Comments POC Glucose (test 160 mg/dL 70-115 Notify RN or MDIf you consider code=POCGLUC) your patient critically ill, the [place] Accu-Chek InformII metershould not be used for Glucose determinations.Draw a venous Glucose and send to the Main Lab for Analysis. POC Glucose, [id number] 07:36:00 Test Item Value Reference Range Comments POC Glucose (test 126 mg/dL 70-115 If you consider your patient code=POCGLUC) critically ill, the [place] Accu-Chek InformII metershould not be used for Glucose determinations.Draw a venous Glucose and send to the Main Lab for Analysis. POC Glucose, [id number] 20:51:00 Test Item Value Reference Range Comments POC Glucose (test 165 mg/dL 70-115 Notify RN or MDIf you consider code=POCGLUC) your patient critically ill, the [place] Accu-Chek InformII metershould not be used for Glucose determinations.Draw a venous Glucose and send to the Main Lab for Analysis. POC Glucose, [id number] 16:42:00 Test Item Value Reference Range Comments POC Glucose (test 133 mg/dL 70-115 If you consider your patient code=POCGLUC) critically ill, the [place] Accu-Chek InformII metershould not be used for Glucose determinations.Draw a venous Glucose and send to the Main Lab for Analysis. POC Glucose, [id number] 11:19:00 Test Item Value Reference Range Comments POC Glucose (test 250 mg/dL 70-115 Notify RN or MDIf you consider code=POCGLUC) your patient critically ill, the [place] Accu-Chek InformII metershould not be used for Glucose determinations.Draw a venous Glucose and send to the Main Lab for Analysis. Culture, [id number] 08:19:00Specimen: UrineCollected: 07/10/2017 12:47 Status: Final Last Updated: 07/12/2017 08:19 Culture Result (Final) (Final ) 07/11/17 No growth 24 hours 07/12/17 No growth 48 hoursPOC Glucose, [id number] 07:26:00 Test Item Value Reference Range Comments POC Glucose (test 131 mg/dL 70-115 Notify RN or MDIf you consider code=POCGLUC) your patient critically ill, the [place] Accu-Chek InformII metershould not be used for Glucose determinations.Draw a venous Glucose and send to the Main Lab for Analysis. POC Glucose, [id number] 20:55:00 Test Item Value Reference Range Comments POC Glucose (test 140 mg/dL 70-115 If you consider your patient code=POCGLUC) critically ill, the [place] Accu-Chek InformII metershould not be used for Glucose determinations.Draw a venous Glucose and send to the Main Lab for Analysis. POC Glucose, [id number] 16:13:00 Test Item Value Reference Range Comments POC Glucose (test 151 mg/dL 70-115 Notify RN or MDIf you consider code=POCGLUC) your patient critically ill, the [place] Accu-Chek InformII metershould not be used for Glucose determinations.Draw a venous Glucose and send to the Main Lab for Analysis. POC Glucose, [id number] 11:43:00 Test Item Value Reference Range Comments POC Glucose (test 170 mg/dL 70-115 Notify RN or MDIf you consider code=POCGLUC) your patient critically ill, the [place] Accu-Chek InformII metershould not be used for Glucose determinations.Draw a venous Glucose and send to the Main Lab for Analysis. POC Glucose, [id number] 07:23:00 Test Item Value Reference Range Comments POC Glucose (test 207 mg/dL 70-115 Notify RN or MDIf you consider code=POCGLUC) your patient critically ill, the [place] Accu-Chek InformII metershould not be used for Glucose determinations.Draw a venous Glucose and send to the Main Lab for Analysis. POC Glucose, [id number] 20:24:00 Test Item Value Reference Range Comments POC Glucose (test 208 mg/dL 70-115 If you consider your patient code=POCGLUC) critically ill, the [place] Accu-Chek InformII metershould not be used for Glucose determinations.Draw a venous Glucose and send to the Main Lab for Analysis. POC Glucose, [id number] 17:14:00 Test Item Value Reference Range Comments POC Glucose (test 158 mg/dL 70-115 If you consider your patient code=POCGLUC) critically ill, the [place] Accu-Chek InformII metershould not be used for Glucose determinations.Draw a venous Glucose and send to the Main Lab for Analysis. Urinalysis [id number] 13:04:00 Test Item Value Reference Range Comments Color (test code=COLOR) Straw Yellow,Straw,Pl yellow Clarity (test code=CLAR) Clear Clear Specific Caroline (test code=SPGR) 1.010 1.001-1.035 pH (test code=PH) [...] Exam (test code=MEXAM) Not indicated POC Glucose, [id number] 11:48:00 Test Item Value Reference Range Comments POC Glucose (test 135 mg/dL 70-115 If you consider your patient code=POCGLUC) critically ill, the [place] Accu-Chek InformII metershould not be used for Glucose determinations.Draw a venous Glucose and send to the Main Lab for Analysis. POC Glucose, [id number] 07:47:00 Test Item Value Reference Range Comments POC Glucose (test 173 mg/dL 70-115 If you consider your patient code=POCGLUC) critically ill, the [place] Accu-Chek InformII metershould not be used for Glucose determinations.Draw a venous Glucose and send to the Main Lab for Analysis. Basic Metabolic [id number] 05:18:00 Test Item Value Reference Range Comments [...] race is not provided, and the patient isAfrican-Citizen [place], multiply by 1.212. If sex is not [...] the National Kidney Foundation,http://nkdep.nih .gov CBC with [id number] 04:59:00 Test Item Value Reference Range Comments [...] Lymph Abs (test code=ALYMPH) 2.7 K/cumm 0.5-4.6 [place] Abs (test code=AMONO) 0.8 K/cumm 0.0-1.2 Eos Abs (test code=AEOS) 0.26 K/cumm 0.00-0.74 Baso Abs (test code=ABASO) 0.0 K/cumm 0.00-0.21 POC Glucose, [id number] 20:59:00 Test Item Value Reference Range Comments POC Glucose (test 199 mg/dL 70-115 Notify RN or MDIf you consider code=POCGLUC) your patient critically ill, the [place] Accu-Chek InformII metershould not be used for Glucose determinations.Draw a venous Glucose and send to the Main Lab for Analysis. POC Glucose, [id number] 16:26:00 Test Item Value Reference Range Comments POC Glucose (test 170 mg/dL 70-115 Notify RN or MDIf you consider code=POCGLUC) your patient critically ill, the [place] Accu-Chek InformII metershould not be used for Glucose determinations.Draw a venous Glucose and send to the Main Lab for Analysis. POC Glucose, [id number] 11:41:00 Test Item Value Reference Range Comments POC Glucose (test 246 mg/dL 70-115 If you consider your patient code=POCGLUC) critically ill, the [place] Accu-Chek InformII metershould not be used for Glucose determinations.Draw a venous Glucose and send to the Main Lab for Analysis. Glycosylated [id number] 07:39:00 Test Item Value Reference Range Comments HBA1c (test code=HBA1C) 9.1 % 4.8-5.9 POC Glucose, [id number] 07:36:00 Test Item Value Reference Range Comments POC Glucose (test 206 mg/dL 70-115 If you consider your patient code=POCGLUC) critically ill, the [place] Accu-Chek InformII metershould not be used for Glucose determinations.Draw a venous Glucose and send to the Main Lab for Analysis. CBC with [id number] 06:09:00 Test Item Value Reference Range Comments [...] Lymph Abs (test code=ALYMPH) 3.5 K/cumm 0.5-4.6 [place] Abs (test code=AMONO) 1.0 K/cumm 0.0-1.2 Eos Abs (test code=AEOS) 0.19 K/cumm 0.00-0.74 Baso Abs (test code=ABASO) 0.1 K/cumm 0.00-0.21 Microcytosis (test code=MICRO) Slight Comprehensive Metabolic [id number] 06:00:00 Test Item Value Reference Range Comments [...] race is not provided, and the patient is[place]Citizen [place], multiply by 1.212. If sex is not provided, and thepatient is female, multiply by 0.742. Results for patients <18 years ofage have not been validated by the MDRD study and should be interpretedwith caution.eGFR Result Interpretation:eGFR > or=60 is in the Normal RangeeGFR < 60 may mean kidney diseaseeGFR < 15 may mean kidney failureRanges recommended by the National Kidney Foundation,http://nkdep.nih .gov Magnesium, [id number] 06:00:00 Test Item Value Reference Range Comments Magnesium (test code=MG) 2.2 mg/dL 1.7-2.5 [id number] 06:00:00 Test Item Value Reference Range Comments Phosphorus (test code=PO4) 2.8 mg/dL 2.70-4.50 POC Glucose, [id number] 20:44:00 Test Item Value Reference Range Comments POC Glucose (test 199 mg/dL 70-115 If you consider your patient code=POCGLUC) critically ill, the [place] Accu-Chek InformII metershould not be used for Glucose determinations.Draw a venous Glucose and send to the Main Lab for Analysis. POC Glucose, [id number] 16:28:00 Test Item Value Reference Range Comments POC Glucose (test 242 mg/dL 70-115 Notify RN or MDIf you consider code=POCGLUC) your patient critically ill, the [place] Accu-Chek InformII metershould not be used for Glucose determinations.Draw a venous Glucose and send to the Main Lab for Analysis. POC Glucose, [id number] 13:37:00 Test Item Value Reference Range Comments POC Glucose (test 131 mg/dL 70-115 If you consider your patient code=POCGLUC) critically ill, the [place] Accu-Chek InformII metershould not be used for Glucose determinations.Draw a venous Glucose and send to the Main Lab for Analysis. POC Glucose, [id number] 12:14:00 Test Item Value Reference Range Comments POC Glucose (test 100 mg/dL 70-115 If you consider your patient code=POCGLUC) critically ill, the [place] Accu-Chek InformII metershould not be used for Glucose determinations.Draw a venous Glucose and send to the Main Lab for Analysis. POC Glucose, [id number] 07:30:00 Test Item Value Reference Range Comments POC Glucose (test 123 mg/dL 70-115 If you consider your patient code=POCGLUC) critically ill, the [place] Accu-Chek InformII metershould not be used for Glucose determinations.Draw a venous Glucose and send to the Main Lab for Analysis. Basic Metabolic [id number] 06:05:00 Test Item Value Reference Range Comments [...] race is not provided, and the patient is[place]Citizen [place], multiply by 1.212. If sex is not [...] the National Kidney Foundation,http://nkdep.nih .gov CBC with [id number] 05:44:00 Test Item Value Reference Range Comments [...] Lymph Abs (test code=ALYMPH) 4.8 K/cumm 0.5-4.6 [place] Abs (test code=AMONO) 0.8 K/cumm 0.0-1.2 Eos Abs (test code=AEOS) 0.34 K/cumm 0.00-0.74 Baso Abs (test code=ABASO) 0.1 K/cumm 0.00-0.21 POC Glucose, [id number] 20:29:00 Test Item Value Reference Range Comments POC Glucose (test 152 mg/dL 70-115 If you consider your patient code=POCGLUC) critically ill, the [place] Accu-Chek InformII metershould not be used for Glucose determinations.Draw a venous Glucose and send to the Main Lab for Analysis. Antibody Screen - [id number] 17:58:00 Test Item Value Reference Range Comments Antibody Screen (test code=ABSCR) Negative Blood Type and [id number] 17:44:00 Test Item Value Reference Range Comments ABO type (test code=ABO) A Rh Type (test code=RH) Positive POC Glucose, [id number] 16:09:00 Test Item Value Reference Range Comments POC Glucose (test 192 mg/dL 70-115 If you consider your patient code=POCGLUC) critically ill, the [place] Accu-Chek InformII metershould not be used for Glucose determinations.Draw a venous Glucose and send to the Main Lab for Analysis. POC Glucose, [id number] 12:11:00 Test Item Value Reference Range Comments POC Glucose (test 249 mg/dL 70-115 If you consider your patient code=POCGLUC) critically ill, the [place] Accu-Chek InformII metershould not be used for Glucose determinations.Draw a venous Glucose and send to the Main Lab for Analysis. MRI LWR EXTRM NON-JNT WO [id number] 09:25:10LOCATION: [id number]: MRI LWR EXTRM NON-JNT WO CONTRST-LEFTINDICATION: LEFT [...] concerning for injury.US DUPLX LWR EXT ART/BPG, [id number] 08: 50:53US DUPLX LWR EXT ART/BPG, BILATCLINICAL HISTORY: non-healing woundsTechnique: Grayscale, color, and spectral sonography of the bilateral lower extremity arteries was performed.FINDINGS:Right leg (waveform / peak systolic velocity)PARTNER CCO: Triphasic 95 cm/secProx SFA: Triphasic 92 cm/secMid SFA: Triphasic 81 cm/secDistal SFA: Triphasic 83 cm/ secPopliteal: Triphasic 84 cm/secPTA: Monophasic 93 cm/ secATA: Triphasic 32 cm/secDPA: Not imaged/bandaging Left leg (waveform / peak systolic velocity)PARTNER CCO: Triphasic 88 cm/secProx SFA: Triphasic 93 cm/secMid SFA: Triphasic 82 cm/ secDistal SFA: Triphasic 49 cm/secPopliteal: Triphasic 60 cm/secPTA: Triphasic 73 cm/secATA: Triphasic 93 cm/secDPA: Not imaged/bandaging IMPRESSION: 1. Limited exam. Thedorsalis pedis arteries are not imaged.2. Abnormal monophasic waveform in the right posterior tibial artery.3. Otherwise unremarkable exam.Location: R16CBC with [id number] 08:22:00 Test Item Value Reference Range Comments [...] Lymph Abs (test code=ALYMPH) 3.6 K/cumm 0.5-4.6 [place] Abs (test code=AMONO) 0.6 K/cumm 0.0-1.2 Eos Abs (test code=AEOS) 0.37 K/cumm 0.00-0.74 Baso Abs (test code=ABASO) 0.1 K/cumm 0.00-0.21 Basic Metabolic [id number] 08:03:00 Test Item Value Reference Range Comments [...] race is not provided, and the patient is[place]Citizen [place], multiply by 1.212. If sex is not [...] the National Kidney Foundation,http://nkdep.nih .gov POC Glucose, [id number] 07:30:00 Test Item Value Reference Range Comments POC Glucose (test 110 mg/dL 70-115 If you consider your patient code=POCGLUC) critically ill, the [place] Accu-Chek InformII metershould not be used for Glucose determinations.Draw a venous Glucose and send to the Main Lab for Analysis. POC Glucose, [id number] 19:57:00 Test Item Value Reference Range Comments POC Glucose (test 124 mg/dL 70-115 If you consider your patient code=POCGLUC) critically ill, the [place] Accu-Chek InformII metershould not be used for Glucose determinations.Draw a venous Glucose and send to the Main Lab for Analysis. POC Glucose, [id number] 16:10:00 Test Item Value Reference Range Comments POC Glucose (test 114 mg/dL 70-115 Notify RN or MDIf you consider code=POCGLUC) your patient critically ill, the [place] Accu-Chek InformII metershould not be used for Glucose determinations.Draw a venous Glucose and send to the Main Lab for Analysis. POC Glucose, [id number] 11:18:00 Test Item Value Reference Range Comments POC Glucose (test 203 mg/dL 70-115 Notify RN or MDIf you consider code=POCGLUC) your patient critically ill, the [place] Accu-Chek InformII metershould not be used for Glucose determinations.Draw a venous Glucose and send to the Main Lab for Analysis. Culture, Wound [id number] 09:58:00Specimen: FootCollected: 2016 17:00 Status: Final Last [...] Streptococcus Beta Hemolytic Streptococcus Group GPOC Glucose, [id number] 07:23:00 Test Item Value Reference Range Comments POC Glucose (test 197 mg/dL 70-115 Notify RN or MDIf you consider code=POCGLUC) your patient critically ill, the [place] Accu-Chek InformII metershould not be used for Glucose determinations.Draw a venous Glucose and send to the Main Lab for Analysis. POC Glucose, [id number] 16:09:00 Test Item Value Reference Range Comments POC Glucose (test 194 mg/dL 70-115 If you consider your patient code=POCGLUC) critically ill, the [place] Accu-Chek InformII metershould not be used for Glucose determinations.Draw a venous Glucose and send to the Main Lab for Analysis. POC Glucose, [id number] 11:33:00 Test Item Value Reference Range Comments POC Glucose (test 193 mg/dL 70-115 If you consider your patient code=POCGLUC) critically ill, the [place] Accu-Chek InformII metershould not be used for Glucose determinations.Draw a venous Glucose and send to the Main Lab for Analysis. MRI LWR EXTRM NON-JNT WO [id number] 08:18:56EXAM: MRI right foot without contrastLocation: [id number]: History of amputation, rule out osteomyelitisCOMPARISON: Left [...] stump.3. Post amputation changes as described.POC Glucose, [id number] 07:15:00 Test Item Value Reference Range Comments POC Glucose (test 140 mg/dL 70-115 If you consider your patient code=POCGLUC) critically ill, the [place] Accu-Chek InformII metershould not be used for Glucose determinations.Draw a venous Glucose and send to the Main Lab for Analysis. Sed Rate ESR ([place])2017-07-05 06:40:00 Test Item Value Reference Range Comments ESR (test code=HESR) 54 mm/Hr 0-9 C-Reactive Protein, [id number] 05:41:00 Test Item Value Reference Range Comments CRP (test code=CRP) 34.7 mg/L 0.0-5.0 POC Glucose, [id number] 21:22:00 Test Item Value Reference Range Comments POC Glucose (test 141 mg/dL 70-115 If you consider your patient code=POCGLUC) critically ill, the [place] Accu-Chek InformII metershould not be used for Glucose determinations.Draw a venous Glucose and send to the Main Lab for Analysis. POC Glucose, [id number] 16:09:00 Test Item Value Reference Range Comments POC Glucose (test 156 mg/dL 70-115 If you consider your patient code=POCGLUC) critically ill, the [place] Accu-Chek InformII metershould not be used for Glucose determinations.Draw a venous Glucose and send to the Main Lab for Analysis. POC Glucose, [id number] 12:05:00 Test Item Value Reference Range Comments POC Glucose (test 170 mg/dL 70-115 If you consider your patient code=POCGLUC) critically ill, the [place] Accu-Chek InformII metershould not be used for Glucose determinations.Draw a venous Glucose and send to the Main Lab for Analysis. XR FOOT [id number] 08:56:55XR FOOT 2V-LEFTLOCATION: [id number]:left foot ulcer COMPARISON: None.DISCUSSION:Frontal and lateral radiographs [...] stump.2. No definite acute osseous abnormalities.XR FOOT [id number] 08:53:30XR FOOT 2V- RIGHTLOCATION: [id number]:right foot stump ulcer COMPARISON: None.DISCUSSION:Frontal and lateral radiographs of the right foot were obtained. Amputation changes at the proximal metatarsals are noted.No definite suspicious focal osseous destruction or periosteal reactionis seen.Otherwise, no acute fracture or dislocation is seen.The joint spaces are grossly preserved.IMPRESSION:1. 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 No definite acute osseous abnormalities.POC Glucose, [id number] 07:50:00 Test Item Value Reference Range Comments POC Glucose (test 139 mg/dL 70-115 If you consider your patient code=POCGLUC) critically ill, the [place] Accu-Chek InformII metershould not be used for Glucose determinations.Draw a venous Glucose and send to the Main Lab for Analysis. CBC with [id number] 06:19:00 Test Item Value Reference Range Comments [...] Lymph Abs (test code=ALYMPH) 2.7 K/cumm 0.5-4.6 [place] Abs (test code=AMONO) 0.6 K/cumm 0.0-1.2 Eos Abs (test code=AEOS) 0.32 K/cumm 0.00-0.74 Baso Abs (test code=ABASO) 0.1 K/cumm 0.00-0.21 Lipid [id number] 06:15:00 Test Item Value Reference Range Comments Cholesterol (test 133 mg/dL 0-200 code=CHOL) Triglycerides (test 164 mg/dL 9-200 code=TRIG) HDL (test code=HDL) 31 mg/dL 40-60 Chol/HDL (test 4.3 Ratio 0.0-5.0 code=CHOLPHDL) LDL, Calculated (test 69 0-130 (NOTE)RISK OF HEART code=LDLC) DISEASEPublished by Citizen Of [place] Heart AssociationAnalyte Optimal Boderline Increased RiskCHOL <200 200-239 >240TRIG <150 150-199 >200HDL Male: >60 <40HDL Female: >60 <50LDL <100 130-159 >160LDL NEAR OPTIMAL IS 100-129 VLDL (test code=VLDL) 33 mg/dL 5-40 LDL/HDL (test code=LDLPHDL) 2 POC Glucose, [id number] 17:14:00 Test Item Value Reference Range Comments POC Glucose (test 129 mg/dL 70-115 If you consider your patient code=POCGLUC) critically ill, the [place] Accu-Chek InformII metershould not be used for Glucose determinations.Draw a venous Glucose and send to the Main Lab for Analysis. RPR, [id number] 12:26:00 Test Item Value Reference Range Comments RPR (test code=RPR) Non-Reactive Non-Reactive POC Glucose, [id number] 12:05:00 Test Item Value Reference Range Comments POC Glucose (test 173 mg/dL 70-115 If you consider your patient code=POCGLUC) critically ill, the [place] Accu-Chek InformII metershould not be used for Glucose determinations.Draw a venous Glucose and send to the Main Lab for Analysis. POC Glucose, [id number] 07:57:00 Test Item Value Reference Range Comments POC Glucose (test 144 mg/dL 70-115 If you consider your patient code=POCGLUC) critically ill, the [place] Accu-Chek InformII metershould not be used for Glucose determinations.Draw a venous Glucose and send to the Main Lab for Analysis. POC Glucose, [id number] 06:19:00 Test Item Value Reference Range Comments [...] TSH (test code=TSH) 2.08 mIU/mL 0.270-4.200 Lipid [id number] 23:52:00 Test Item Value Reference Range Comments Cholesterol (test 171 mg/dL 0-200 code=CHOL) Triglycerides (test 171 mg/dL 9-200 code=TRIG) HDL (test code=HDL) 37 mg/dL 40-60 Chol/HDL (test 4.6 Ratio 0.0-5.0 code=CHOLPHDL) LDL, Calculated (test 100 0-130 (NOTE)RISK OF HEART code=LDLC) DISEASEPublished by Citizen Of [place] Heart AssociationAnalyte Optimal Boderline Increased RiskCHOL <200 200-239 >240TRIG <150 150-199 >200HDL Male: >60 <40HDL Female: >60 <50LDL <100 130-159 >160LDL NEAR OPTIMAL IS 100-129 VLDL (test code=VLDL) 34 mg/dL 5-40 LDL/HDL (test code=LDLPHDL) 3 POC Glucose, [id number] 20:03:00 Test Item Value Reference Range Comments POC Glucose (test 221 mg/dL 70-115 If you consider your patient code=POCGLUC) critically ill, the [place] Accu-Chek InformII metershould not be used for Glucose determinations.Draw a venous Glucose and send to the Main Lab for Analysis. POC Glucose, [id number] 16:47:00 Test Item Value Reference Range Comments POC Glucose (test 304 mg/dL 70-115 If you consider your patient code=POCGLUC) critically ill, the [place] Accu-Chek InformII metershould not be used for Glucose determinations.Draw a venous Glucose and send to the Main Lab for Analysis. POC Glucose, [id number] 15:20:00 Test Item Value Reference Range Comments POC Glucose (test 368 mg/dL 70-115 If you consider your patient code=POCGLUC) critically ill, the [place] Accu-Chek InformII metershould not be used for Glucose determinations.Draw a venous Glucose and send to the Main Lab for Analysis. [id number] 08:27:00 Test Item Value Reference Range Comments [...] Urine (test <0.01 g/dL 0.00-0.01 code=ETOHU) Urinalysis [id number] 07:59:00 Test Item Value Reference Range Comments Color (test code=COLOR) Yellow Yellow,Straw,Pl yellow Clarity (test code=CLAR) Clear Clear Specific Caroline (test code=SPGR) 1.026 1.001-1.035 pH (test code=PH) [...] Bacteria (test code=BACT) Few /HPF POC Glucose, [id number] 07:23:00 Test Item Value Reference Range Comments POC Glucose (test 174 mg/dL 70-115 If you consider your patient code=POCGLUC) critically ill, the [place] Accu-Chek InformII metershould not be used for Glucose determinations.Draw a venous Glucose and send to the Main Lab for Analysis. [id number] 06:52:00 Test Item Value Reference Range Comments Acetone [Serum] (test code=ACETONE) Negative Negative Comprehensive Metabolic [id number] 06:19:00 Test Item Value Reference Range Comments [...] race is not provided, and the patient isAfrican-Citizen [place], multiply by 1.212. If sex is not [...] the National Kidney Foundation,http://nkdep.nih .gov CBC with [id number] 06:00:00 Test Item Value Reference Range Comments [...] Lymph Abs (test code=ALYMPH) 3.1 K/cumm 0.5-4.6 [place] Abs (test code=AMONO) 0.9 K/cumm 0.0-1.2 Eos Abs (test code=AEOS) 0.29 K/cumm 0.00-0.74 Baso Abs (test code=ABASO) 0.1 K/cumm 0.00-0.21 POC Glucose, [id number] 05:52:00 Test Item Value Reference Range Comments POC Glucose (test 342 mg/dL 70-115 If you consider your patient code=POCGLUC) critically ill, the [place] Accu-Chek InformII metershould not be used for Glucose determinations.Draw a venous Glucose and send to the Main Lab for Analysis.
[2019-05-16] MEDS ORDERED: NA CHLORIDE 0.9% 1,000 ML ONE (11:55)
[2019-05-16 12:02] LABS: Absolute Lymphocytes (CBC) 3.6 K/uL (0.7-4.9); Basophils % 0.7 % (0-1.3); Hematocrit 34.7 % (39.6-49.0); Lymphocytes % 33.6 % (15.3-44.8); MPV 7.3 fL (7.6-11.3); RBC Red Blood Cell Count 4.47 M/uL (4.33-5.43)
[2019-05-16 12:03] LABS: Protime INR 0.85
[2019-05-16 12:08] LABS: Barbiturates NEGATIVE (NEGATIVE); Benzodiazepines NEGATIVE (NEGATIVE); Cocaine NEGATIVE (NEGATIVE); METHAMPHETAM NEGATIVE (NEGATIVE); Methadone NEGATIVE (NEGATIVE); Opiates POSITIVE (NEGATIVE); Phencyclidine NEGATIVE (NEGATIVE); THC Cannibis NEGATIVE (NEGATIVE)
[2019-05-16 12:18] LABS: ALT/SGPT 34 U/L (12-78); AST/SGOT 18 U/L (15-37); Alkaline Phosphatase 129 U/L (45-117); BUN Blood Urea Nitrogen 28 mg/dL (7-18); Bicarbonate 24 mmol/L (21-32); Bilirubin Direct < 0.1 mg/dL (0-0.2); Bilirubin Total 0.2 mg/dL (0.2-1.0); Glucose Level 177 mg/dL (74-106); Magnesium 2.1 mg/dL (1.8-2.4); NT PRO-BNP 32 pg/mL (<125); Potassium 3.7 mmol/L (3.5-5.1); Protein, Total 7.2 g/dL (6.4-8.2); Sodium Level 142 mmol/L (136-145)
[2019-05-16 12:19] LABS: Lipase 187 U/L (73-393); Troponin (Emerg Dept Use Only) < 0.02 ng/mL (0.0-0.045)
[2019-05-16] MEDS ORDERED: NA CHLORIDE 0.9% 500 ML ONE (12:48)
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
--- NOTE | 2019-05-16 14:13 | RAD REPORT ---
EXAM DESCRIPTION: Young Single View05/16/2019 12:11 pm CLINICAL HISTORY: cough COMPARISON: March 2019 FINDINGS: The lungs appear clear of acute infiltrate. The heart is normal size IMPRESSION: No acute abnormalities displayed
[2019-05-16 14:33] VITALS: TEMP 96.9
[2019-05-16 14:35] VITALS: O2SAT 100
[2019-05-16 14:38] VITALS: BP 131/95
--- NOTE | 2019-05-17 08:38 | EKG ---
Test Date: 2019-05-16 Test Time: 12:44:32 [employer]: MEASUREMENT RESULTS: Intervals: Rate: 99 OH: 142 QRSD: 86 QT: 378 QTc: 485 [place]: P: 32 OH: 142 QRS: 17 T: 33 INTERPRETIVE STATEMENTS: Normal sinus rhythm Prolonged QT Abnormal ECG Compared to ECG 04/12/2019 20:08:24 Prolonged QT interval now present Sinus tachycardia no longer present Electronically Signed On 05-17-19 08:36:12 CDT by Emory Olivarez
== END 2019-05-16 14:07 | disposition home or self-care (01) ==
LOC: ER 11:15
DX: N19 Unspecified kidney failure (principal); E10.9 Type 1 diabetes mellitus without complications; F31.9 Bipolar disorder, unspecified; R53.1 Weakness; Z88.6 Allergy status to analgesic agent; Z88.3 Allergy status to other anti-infective agents
CPT/HCPCS: 96361; 93005; 87088; 85025; 87086; 80048; 36415; 83735; 85610; 80076; 80307 ×8; 84484; 83690; 83880; 71045; 96360; 99284; J7030

== ENCOUNTER 2019-06-09 17:25 | Inpatient (IN) | payer OTHER ==
[2019-06-09] MEDS ORDERED: NA CHLORIDE 0.9% 3,000 ML ONE (17:43)
[2019-06-09] MEDS ORDERED: D50W 25 GM/50 ML SYRINGE IV ONE ×2 (17:43→19:59)
[2019-06-09 17:54] LABS: Absolute Lymphocytes (CBC) 3.6 K/uL (0.7-4.9); Hematocrit 40.8 % (39.6-49.0); MPV 7.8 fL (7.6-11.3); RBC Red Blood Cell Count 5.37 M/uL (4.33-5.43)
[2019-06-09 18:00] LABS: Protime INR 0.95
[2019-06-09 18:25] LABS: ALT/SGPT 36 U/L (12-78); AST/SGOT 29 U/L (15-37); Albumin 3.5 g/dL (3.4-5.0); Alkaline Phosphatase 162 U/L (45-117); BUN Blood Urea Nitrogen 22 mg/dL (7-18); Bicarbonate 22 mmol/L (21-32); Bilirubin Direct < 0.1 mg/dL (0-0.2); Bilirubin Total 0.1 mg/dL (0.2-1.0); C-Reactive Protein 9.71 mg/L (<3.00); CKMB Creatine Kinase MB < 1.0 ng/mL (0.3-3.6); Creatine Phosphokinase 89 U/L (39-308); Glucose Level 60 mg/dL (74-106); Lipase 125 U/L (73-393); Protein, Total 8.6 g/dL (6.4-8.2); Sodium Level 140 mmol/L (136-145); Troponin (Emerg Dept Use Only) < 0.02 ng/mL (0.0-0.045)
[2019-06-09] MEDS ORDERED: FENTANYL CITR 100 MCG/2 ML ONE (18:33)
--- NOTE | 2019-06-09 18:42 | RAD REPORT ---
EXAM DESCRIPTION: Young Single View06/09/2019 5:59 pm CLINICAL HISTORY: Sepsis and hypertension COMPARISON: May 16, 2019 FINDINGS: The lungs appear clear of acute infiltrate. The heart is normal size IMPRESSION: No acute abnormalities displayed
--- NOTE | 2019-06-09 19:02 | RAD REPORT ---
EXAM DESCRIPTION: RAD - Foot Left 3 View - 06/09/2019 6:49 pm CLINICAL HISTORY: Left Foot pain FINDINGS: Pathologic fractures involving the bases of the first, second, third and fourth metatarsal s secondary to osteomyelitis Portion of fifth metatarsal has been resected. Cortical regularity indicates additional osteomyelitis . No dislocation
[2019-06-09] MEDS ORDERED: PIPER/TAZO/NS 3.375gm 3.375 GM/100 ML BAG ONE (19:05)
[2019-06-09] MEDS ORDERED: Levofloxacin500mg IV 500 MG/100 ML BAG IV ONE (19:05)
[2019-06-09] MEDS ORDERED: D5 0.9 NS 1,000 ML IV ONE (19:05)
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
[2019-06-09] MEDS ORDERED: CODEINE 30MG/APAP 300MG TAB ONE (20:02)
[2019-06-09] MEDS ORDERED: ACETAMINOPHEN 500 MG TAB PO PRN (20:07)
[2019-06-09] MEDS ORDERED: ONDANSETRON 4 MG/2 ML VIAL IV PRN (20:07)
[2019-06-09] MEDS ORDERED: MORPHINE 4 MG/ML SYR IV PRN (20:07)
[2019-06-09] MEDS ORDERED: D50W 25 GM/50 ML SYRINGE IV PRN (20:11)
[2019-06-09] MEDS ORDERED: Levofloxacin500mg IV 500 MG/100 ML BAG IV SCH (21:00)
[2019-06-09 22:43] LABS: Barbiturates NEGATIVE (NEGATIVE); Benzodiazepines NEGATIVE (NEGATIVE); Cocaine POSITIVE (NEGATIVE); METHAMPHETAM NEGATIVE (NEGATIVE); Methadone NEGATIVE (NEGATIVE); Opiates NEGATIVE (NEGATIVE); Phencyclidine NEGATIVE (NEGATIVE); THC Cannibis NEGATIVE (NEGATIVE)
[2019-06-09] MEDS: D5 0.45 NS 1,000 ML IV SCH ×2 (22:58→23:04)
[2019-06-09] MEDS ORDERED: DILTIAZEM HCL 60 MG TAB PO ONE (23:08)
[2019-06-09 23:21] LABS: Urine Blood TRACE (NEG); Urine Glucose 1+ (NEG); Urine Protein 2+ (NEG); Urine pH 5.5 (5.0-7.0)
[2019-06-09] MEDS ORDERED: MORPHINE 4 MG/ML SYR ONE (23:42)
[2019-06-10] MEDS: HYDROMORPHONE HCL 1 MG/ML INJ IV PRN ×4 (00:09→18:45)
[2019-06-10 00:41] LABS: Urine Bacteria <20 /HPF (NONE SEEN); Urine Culture Reflex Order REFLEXED; Urine RBC <5 /HPF (NONE SEEN); Urine Yeast FEW (NONE SEEN)
[2019-06-10 00:43] VITALS: O2SAT 100
[2019-06-10 05:45] LABS: Potassium 3.1 mmol/L (3.5-5.1)
[2019-06-10 05:50] LABS: Absolute Lymphocytes (CBC) 3.9 K/uL (0.7-4.9); Hematocrit 35.1 % (39.6-49.0); Lymphocytes % 33.7 % (15.3-44.8); MPV 8.2 fL (7.6-11.3); RBC Red Blood Cell Count 4.61 M/uL (4.33-5.43)
--- NOTE | 2019-06-10 07:04 | EKG ---
Test Date: 2019-06-09 Test Time: 17:38:55 Abstracter: ANA MEASUREMENT RESULTS: Intervals: Rate: 148 SD: 112 QRSD: 80 QT: 272 QTc: 427 [place]: P: 39 SD: 112 QRS: 89 T: -1 INTERPRETIVE STATEMENTS: Sinus tachycardia ST & T wave abnormality, consider inferior ischemia Abnormal ECG Compared to ECG 05/16/2019 12:44:32 ST (T wave) deviation now present Possible ischemia now present Sinus rhythm no longer present Prolonged QT interval no longer present Electronically Signed On 06-10-19 07:03:39 CDT by Emory Olivarez
[2019-06-10] MEDS ORDERED: INFLUENZA VACCINE (for 3y+) 0.5 ML DOSE IMVAC ONE (08:00)
--- NOTE | 2019-06-10 09:05 | P.HP ---
Certification for Inpatient Patient admitted to: Inpatient With expected LOS: >2 Midnights Patient will require the following post-hospital care: None Practitioner: I am a practitioner with admitting privileges, knowledge of patient current condition, hospital course, and medical plan of care. Services: Services provided to patient in accordance with Admission requirements found in Title 42 Section 412.3 of the Code of Federal Regulations Patient History Date of Service: 06/09/19 Reason for admission: Hypoglycemia History of Present Illness: Patient is a 34yo who was admitted to the hospital with severe hypoglycemia. Patient's blood sugars were not correcting event with getting an but D50. Patient was given IV fluids and blood sugars still did not correct. Patient was also tachycardic. Patient admits to doing cocaine. Patient was admitted to the hospital for further evaluation. Patient has had numerous admissions. Patient has diabetic wound. He has a wound VAC in place and is getting hyperbarics. Patient will need a follow-up as an outpatient once his heart rate and blood sugars have stabilized. Allergies clindamycin Adverse Reaction (Verified 02/08/19 07:26) Nausea/Vomiting meperidine [From Demerol] Adverse Reaction (Verified 02/08/19 07:26) Nausea/Vomiting vancomycin Adverse Reaction (Verified 02/08/19 07:26) Nausea/Vomiting Home Medications: Ciprofloxacin HCl [Cipro 500 MG Tablet] 500 mg PO BID 06/10/19 Duloxetine HCl [Cymbalta] 30 mg PO DAILY 06/10/19 Duloxetine HCl [Cymbalta] 60 mg PO BEDTIME 06/10/19 Fluconazole 200 mg PO DAILY 06/10/19 Gabapentin [Neurontin] 800 mg PO TID 06/10/19 Insulin 70/30 NPH/Reg Human [Novolin 70/30*] 30 unit SQ BEDTIME 06/10/19 Insulin 70/30 NPH/Reg Human [Novolin 70/30*] 50 unit SQ DAILY 06/10/19 Minocycline HCl 100 mg PO BID 06/10/19 Mirtazapine [Remeron] 15 mg PO BEDTIME 06/10/19 - Past Medical/Surgical History Has patient received pneumonia vaccine in the past: Yes Diabetic: No -: Bipolar disorder -: Diabetes mellitus type 2 -: Schizoaffective disorder -: neuropathy -: osteomyelitis -: chronic pain -: Diabetic neuropathy -: Right BKA -: Left 5th toe amputation Psychosocial/ Personal History: The patient is single. He has no children. The patient is disabled. - Family History Mother Medical History: Hypertension, Diabetes Father Medical History: Diabetes Brother Medical History: Hypertension, Diabetes - Social History Smoking Status: Current every day smoker Alcohol use: No CD- Drugs: Yes Caffeine use: Yes Place of Residence: Home Review of Systems 10-point ROS is otherwise unremarkable Physical Examination - Vital Signs Temperature: 97.5 F Blood Pressure: 133/98 Pulse: 95 Respirations: 17 Pulse Ox (%): 100 - Physical Exam General: Alert, In no apparent distress, Oriented x3 HEENT: Atraumatic, PERRLA, Mucous membr. moist/pink, EOMI, Sclerae nonicteric Neck: Supple, 2+ carotid pulse no bruit, No LAD, Without JVD or thyroid abnormality Respiratory: Clear to auscultation bilaterally, Normal air movement Cardiovascular: Regular rate/rhythm, Normal S1 S2, No murmurs Gastrointestinal: Normal bowel sounds, Soft and benign, Non-distended, No tenderness Musculoskeletal: No clubbing, No swelling, No tenderness Integumentary: No rashes Neurological: Normal gait, Normal speech, Normal strength at 5/5 x4 extr, Normal tone, Sensation intact, Cranial nerves 3-12 intact, Normal affect Lymphatics: No axilla or inguinal lymphadenopathy - Studies Laboratory Data (last 24 hrs) 06/09/19 17:40: PT 11.2, INR 0.95, APTT 32.2 06/09/19 17:40: Sodium 140, Potassium 3.0 L, BUN 22 H, Creatinine 1.62 H, Glucose 60 L, Total Bilirubin 0.1 L, AST 29, ALT 36, Alkaline Phosphatase 162 H , Lipase 125 06/09/19 17:40: WBC 12.8 H, Hgb 13.6, Hct 40.8, Plt Count 283 Microbiology Data (last 24 hrs): 06/09/19 18:20 Blood - Blood Anaerobic Blood Culture - Final 06/09/19 17:55 Blood - Blood Anaerobic Blood Culture - Final Assessment & Plan - Plan Assessment: 1. Hypoglycemia 2. Tachycardia 3. Cocaine abuse 4. Diabetic foot ulcer 5. Type 2 diabetes-uncontrolled Plan: 1. Continue D5 water 2. Monitor heart rate 3. Strict blood sugar control 4. Continue wound care 5. Strict blood sugar control 6. GI and DVT prophylaxis Discharge Plan: Home Plan to discharge in: Greater than 2 days - Advance Directives Does patient have a Living Will: No Does patient have a Durable POA for Healthcare: No - Code Status/Comfort Care Code Status Assessed: Yes Code Status: Full Code Critical Care: No Time Spent Managing PTS Care (In Minutes): 40
[2019-06-10] MEDS: D5 0.45 NS 1,000 ML IV SCH ×2 (09:41→17:00)
--- NOTE | 2019-06-10 15:10 | P.PN ---
Subjective Date of Service: 06/10/19 Chief Complaint: Hypoglycemia Subjective: No C/O voiced, Improving Patient seen and examined at bedside. Chart reviewed and case discussed with nursing staff. Review of Systems 10-point ROS is otherwise unremarkable Physical Examination - Vital Signs Temperature: 97.5 F Blood Pressure: 139/87 Pulse: 87 Respirations: 16 Pulse Ox (%): 100 - Physical Exam General: Alert, In no apparent distress, Oriented x3 HEENT: Atraumatic, PERRLA, EOMI Neck: Supple, JVD not distended Respiratory: Clear to auscultation bilaterally, Normal air movement Cardiovascular: Regular rate/rhythm, Normal S1 S2 Gastrointestinal: Normal bowel sounds, No tenderness Musculoskeletal: No tenderness Integumentary: Other (Bandage clean,dry, intact) Neurological: Normal speech, Normal tone, Normal affect Lymphatics: No axilla or inguinal lymphadenopathy - Studies Laboratory Data (last 24 hrs) 06/09/19 17:40: PT 11.2, INR 0.95, APTT 32.2 06/09/19 17:40: Sodium 140, Potassium 3.0 L, BUN 22 H, Creatinine 1.62 H, Glucose 60 L, Total Bilirubin 0.1 L, AST 29, ALT 36, Alkaline Phosphatase 162 H , Lipase 125 06/09/19 17:40: WBC 12.8 H, Hgb 13.6, Hct 40.8, Plt Count 283 Microbiology Data (last 24 hrs): 06/09/19 18:20 Blood - Blood Anaerobic Blood Culture - Final 06/09/19 17:55 Blood - Blood Anaerobic Blood Culture - Final Assessment And Plan - Plan Assessment: 1. Hypoglycemia: improved 2. Tachycardia: Improved 3. Cocaine abuse 4. Diabetic foot ulcer 5. Type 2 diabetes-uncontrolled Plan: 1. Continue IVF 2. Monitor heart rate 3. Strict blood sugar control 4. Continue wound care 5. Strict blood sugar control 6. GI and DVT prophylaxis Disposition: Monitor in ICU, if BS continue to remain stable, may be able to transfer to the floor. Possible discharge in the next 24-48 hrs if sugars remain stable. he will continue to follow up outpatient for his foot/wound care.
[2019-06-10] MEDS ORDERED: cloNIDine HCl 0.1 MG TAB PO ONE (19:29)
[2019-06-10] MEDS ORDERED: FUROSEMIDE 20 MG/ 2ML VIAL IV ONE (19:36)
[2019-06-10] MEDS: Levofloxacin500mg IV 500 MG/100 ML BAG IV SCH (19:59)
[2019-06-10] MEDS ORDERED: HYDRALAZINE HCL 20 MG/ML VIAL IV ONE (21:21)
[2019-06-11] MEDS: HYDROMORPHONE HCL 1 MG/ML INJ IV PRN ×4 (01:03→20:25)
[2019-06-11] MEDS: DILTIAZEM HCL 60 MG TAB PO SCH ×4 (05:38→17:27)
[2019-06-11] MEDS ORDERED: INFLUENZA VACCINE (for 3y+) 0.5 ML DOSE IMVAC ONE (11:00)
--- NOTE | 2019-06-11 12:10 | P.PN ---
Subjective Date of Service: 06/11/19 Chief Complaint: Hypoglycemia Subjective: Improving Patient seen and examined at bedside. Chart reviewed and case discussed with nursing staff. Blood sugars elevated to 200s now patient had an appt today to get wound vac changed. No acute events noted overnight. No complaints this am Tolerating PO Review of Systems 10-point ROS is otherwise unremarkable Physical Examination - Vital Signs Temperature: 97.6 F Blood Pressure: 118/78 Pulse: 92 Respirations: 18 Pulse Ox (%): 98 - Physical Exam General: Alert, In no apparent distress, Oriented x3 HEENT: Atraumatic, PERRLA, EOMI Neck: Supple, JVD not distended Respiratory: Clear to auscultation bilaterally, Normal air movement Cardiovascular: Regular rate/rhythm, Normal S1 S2 Gastrointestinal: Normal bowel sounds, No tenderness Musculoskeletal: No tenderness Integumentary: No rashes Neurological: Normal speech, Normal tone, Normal affect Lymphatics: No axilla or inguinal lymphadenopathy - Studies Microbiology Data (last 24 hrs): 06/09/19 18:20 Blood - Blood Anaerobic Blood Culture - Final 06/09/19 17:55 Blood - Blood Anaerobic Blood Culture - Final Assessment And Plan - Plan Assessment: 1. Hypoglycemia: improved 2. Tachycardia: Improved 3. Cocaine abuse 4. Diabetic foot ulcer 5. Type 2 diabetes-uncontrolled Plan: 1. Continue IVF 2. Monitor heart rate 3. Strict blood sugar control 4. Continue wound care 5. Strict blood sugar control 6. GI and DVT prophylaxis Disposition: If BS continue to remain stable on insulin, Possible discharge in the next 24-48 hrs if sugars remain stable. he will continue to follow up outpatient for his foot/wound care.
[2019-06-11] MEDS: GABAPENTIN 400 MG CAP PO SCH ×2 (12:50→20:27)
[2019-06-11 12:54] LABS: Absolute Lymphocytes (CBC) 2.5 K/uL (0.7-4.9); Basophils % 1.3 % (0-1.3); Hematocrit 35.1 % (39.6-49.0); Lymphocytes % 27.8 % (15.3-44.8); MPV 8.3 fL (7.6-11.3); RBC Red Blood Cell Count 4.59 M/uL (4.33-5.43)
[2019-06-11 13:05] LABS: Potassium 3.8 mmol/L (3.5-5.1)
[2019-06-11] MEDS ORDERED: D50W 25 GM/50 ML SYRINGE IV PRN ×2 (16:21→22:11)
[2019-06-11] MEDS ORDERED: GLUCAGON 1 MG/VIAL IM PRN ×2 (16:21→22:11)
[2019-06-11] MEDS ORDERED: INSULIN -REGULAR HUMAN 50 UNIT/0.5 ML ML SQ ONE (16:45)
[2019-06-11] MEDS: TRAMADOL HCL 50 MG TAB PO PRN ×2 (16:51→22:41)
[2019-06-11] MEDS: MINOCYCLINE HCL 50 MG CAP PO SCH (20:27)
[2019-06-11] MEDS: Levofloxacin500mg IV 500 MG/100 ML BAG IV SCH (20:28)
[2019-06-11] MEDS ORDERED: INSULIN 70/30 100 UNITS/ML SQ SCH (21:00)
[2019-06-11] MEDS ORDERED: DULOXETINE 30 MG CAP PO SCH (21:00)
[2019-06-11] MEDS ORDERED: MIRTAZAPINE 15 MG TAB PO SCH (21:00)
[2019-06-11] MEDS ORDERED: NA CHLORIDE 0.9% 500 ML IV ONE (22:01)
[2019-06-11] MEDS ORDERED: NA CHLORIDE 0.9% 1,000 ML IV SCH (23:00)
[2019-06-12] MEDS: HYDROMORPHONE HCL 1 MG/ML INJ IV PRN ×2 (02:22→09:07)
[2019-06-12] MEDS: TRAMADOL HCL 50 MG TAB PO PRN (04:55)
[2019-06-12] MEDS: DILTIAZEM HCL 60 MG TAB PO SCH ×3 (04:55→12:38)
[2019-06-12 05:52] VITALS: BMI 34.4
[2019-06-12] MEDS ORDERED: INSULIN 70/30 100 UNITS/ML SQ SCH (09:00)
[2019-06-12] MEDS ORDERED: DULOXETINE 30 MG CAP PO SCH (09:00)
[2019-06-12] MEDS: MINOCYCLINE HCL 50 MG CAP PO SCH (09:03)
[2019-06-12] MEDS: GABAPENTIN 400 MG CAP PO SCH (09:03)
[2019-06-12 12:39] VITALS: BP 127/89
[2019-06-12 13:11] VITALS: TEMP 98
[2019-06-12] MEDS ORDERED: INSULIN 70/30 100 UNITS/ML SQ ONE (22:12)
--- NOTE | 2019-06-13 13:22 | P.DS ---
Admission Date: 06/09/19 Discharge Date: 06/12/19 Disposition: ROUTINE DISCHARGE Discharge Condition: GOOD Reason for Admission: Hypoglycemia Brief History of Present Illness: Patient is a 34yo who was admitted to the hospital with severe hypoglycemia. Patient's blood sugars were not correcting event with getting an but D50. Patient was given IV fluids and blood sugars still did not correct. Patient was also tachycardic. Patient admits to doing cocaine. Patient was admitted to the hospital for further evaluation. Patient has had numerous admissions. Patient has diabetic wound. He has a wound VAC in place and is getting hyperbarics. Patient will need a follow-up as an outpatient once his heart rate and blood sugars have stabilized. Hospital Course: Patient was admitted to the ICU for hypoglycemia. He was started on IV fluids, he was monitored for blood sugars. His blood sugars improved. His insulin was restarted and blood sugars were monitored. His blood sugars remained stable on his home insulin level. He did have a wound on his leg that he has been following as an outpatient. He needed a wound VAC change and therefore a temporary wound VAC was placed here in the hospital. He was then instructed to follow up with his regular wound care doctor for further management. He otherwise remained stable throughout the stay. His diagnosis and treatment plan was explained to him, all questions were answered and he verbalized understanding. He was then discharged home in a safe and stable manner. Vital Signs/Physical Exam: Temp Pulse Resp BP Pulse Ox 98.0 F 94 H 18 127/89 98 06/12/19 12:00 06/12/19 12:38 06/12/19 12:00 06/12/19 12:38 06/12/19 12:00 General: Alert, In no apparent distress HEENT: Atraumatic, PERRLA, EOMI Neck: Supple, JVD not distended Respiratory: Clear to auscultation bilaterally, Normal air movement Cardiovascular: Regular rate/rhythm, Normal S1 S2 Gastrointestinal: Normal bowel sounds, No tenderness Musculoskeletal: No tenderness Integumentary: No rashes Neurological: Normal speech, Normal tone, Normal affect Lymphatics: No axilla or inguinal lymphadenopathy Laboratory Data at Discharge: WBC 9.0 K/uL (4.3-10.9) D 06/11/19 12:23 Hgb 11.8 g/dL (13.6-17.9) L 06/11/19 12:23 Hct 35.1 % (39.6-49.0) L 06/11/19 12:23 Plt Count 236 K/uL (152-406) 06/11/19 12:23 PT 11.2 SECONDS (9.5-12.5) 06/09/19 17:40 INR 0.95 06/09/19 17:40 APTT 32.2 SECONDS (24.3-36.9) 06/09/19 17:40 Sodium 137 mmol/L (136-145) 06/11/19 12:23 Potassium 3.8 mmol/L (3.5-5.1) 06/11/19 12:23 BUN 19 mg/dL (7-18) H 06/11/19 12:23 Creatinine 1.38 mg/dL (0.55-1.3) H 06/11/19 12:23 Glucose 456 mg/dL (74-106) H* 06/11/19 20:36 Total Bilirubin 0.1 mg/dL (0.2-1.0) L 06/09/19 17:40 AST 29 U/L (15-37) 06/09/19 17:40 ALT 36 U/L (12-78) 06/09/19 17:40 Alkaline Phosphatase 162 U/L (45-117) H 06/09/19 17:40 Lipase 125 U/L (73-393) 06/09/19 17:40 Home Medications: Ciprofloxacin HCl [Cipro 500 MG Tablet] 500 mg PO BID 06/10/19 Duloxetine HCl [Cymbalta] 30 mg PO DAILY 06/10/19 Duloxetine HCl [Cymbalta] 60 mg PO BEDTIME 06/10/19 Fluconazole 200 mg PO DAILY 06/10/19 Gabapentin [Neurontin] 800 mg PO TID 06/10/19 Insulin 70/30 NPH/Reg Human [Novolin 70/30*] 30 unit SQ BEDTIME 06/10/19 Insulin 70/30 NPH/Reg Human [Novolin 70/30*] 50 unit SQ DAILY 06/10/19 Minocycline HCl 100 mg PO BID 06/10/19 Mirtazapine [Remeron*] 15 mg PO BEDTIME 06/10/19 Diltiazem Tab [Cardizem Tab*] 60 mg PO Q6HR #30 tab 06/12/19 Tramadol HCl [Ultram] 50 mg PO Q6H PRN #15 tablet 06/12/19 New Medications: Diltiazem Tab [Cardizem Tab*] 60 mg PO Q6HR #30 tab Tramadol HCl [Ultram] 50 mg PO Q6H PRN #15 tablet PRN Reason: Pain Scale 2-4 (Mild) Patient Discharge Instructions: Please follow up with your wound care physician in 1 week. Please follow up with your primary care physician in 2-3 days. Return to the ER for worsening symptoms Diet: ADA Activity: Ad sina Followup: Rom Wallace MD [Primary Care Provider] - (call to schedule appointment) Time spent managing pt's care (in minutes): 55
== END 2019-06-12 13:00 | disposition home or self-care (01) | DRG 639 ==
LOC: ER 17:25 → ERHOLD 20:08 → 3RD-ICU 22:15 → 4TH 06-10 22:20
PROVIDERS: ADMIT Hospitalist; ATTEND Hospitalist
DX: E11.649 Type 2 diabetes mellitus with hypoglycemia without coma (principal); R00.0 Tachycardia, unspecified; F14.10 Cocaine abuse, uncomplicated; E11.621 Type 2 diabetes mellitus with foot ulcer; E11.65 Type 2 diabetes mellitus with hyperglycemia; Z23 Encounter for immunization; Z89.511 Acquired absence of right leg below knee; Z89.422 Acquired absence of other left toe(s)
CPT/HCPCS: 36415; 71045; 80048; 80076; 80307; 81003; 81015; 82550; 82553; 82947; 82962; 83605; 83690; 84145; 84484; 85025; 85610; 85652; 85730; 86140; 86850; 86900; 86901; 87040; 87086; 87088; 90471; 93005; 96361; 96365; 96367; 96375; 99285; J0360; J1170; J1940; J2543; J3010; J7030; Q2035

== ENCOUNTER 2019-06-13 21:51 | Emergency (ER) | payer OTHER ==
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
[2019-06-13 22:56] VITALS: BP 134/105; TEMP 97.3; O2SAT 100
== END 2019-06-13 22:33 | disposition home or self-care (01) ==
LOC: ER 21:51
DX: I10 Essential (primary) hypertension (principal); E11.9 Type 2 diabetes mellitus without complications; F17.210 Nicotine dependence, cigarettes, uncomplicated; Z88.1 Allergy status to other antibiotic agents; Z88.5 Allergy status to narcotic agent; Z88.8 Allergy status to other drugs, medicaments and biological substances
CPT/HCPCS: 99281

== ENCOUNTER 2019-07-01 01:33 | Emergency (ER) | payer OTHER ==
[2019-07-01] MEDS ORDERED: HYDROCODONE/APAP 10/325 TAB ONE (01:46)
[2019-07-01] MEDS ORDERED: MEPERIDINE HCL 50 MG/ML ONE (02:19)
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
[2019-07-01 02:46] VITALS: TEMP 97.8; O2SAT 100
[2019-07-01 02:47] VITALS: BP 126/104
--- NOTE | 2019-07-01 06:45 | RAD REPORT ---
EXAM DESCRIPTION: RAD - Foot Left 3 View - 07/01/2019 2:17 am CLINICAL HISTORY: Osteomyelitis, foot pain, known fracture COMPARISON: June 09 FINDINGS: Again noted is the fifth toe resection change in partial resection involving distal fifth metatarsal. No new finding in the fifth metatarsal remnant. Patient has previously detailed pathologi c fractures involving the first- fourth metatarsals near the tarsal junction. No clear change at thes e pathologic fracture sites. The first- fourth toes and distal metatarsals show no new finding. No ne w tarsal bone process. No air or foreign body in the soft tissues. IMPRESSION: Known pathologic fractures at the first- fourth metatarsal bases not substantially diffe rent. No clearly new left foot finding since June 09.
== END 2019-07-01 02:41 | disposition home or self-care (01) ==
LOC: ER 01:33
DX: M84.475A Pathological fracture, left foot, initial encounter for fracture (principal); E11.9 Type 2 diabetes mellitus without complications; F31.9 Bipolar disorder, unspecified; F20.9 Schizophrenia, unspecified; Z88.1 Allergy status to other antibiotic agents; Z88.3 Allergy status to other anti-infective agents; Z88.5 Allergy status to narcotic agent; Z89.511 Acquired absence of right leg below knee
CPT/HCPCS: 73630; 96372; 99284; J2175

== ENCOUNTER 2020-01-11 13:03 | Inpatient (IN) | payer OTHER ==
--- OUTSIDE RECORDS SUMMARY | 2020-01-11 13:10 | XMS REPORT ---
:[address] [facility] t Address [address] [place] [address] Care Team Providers Name Role Phone UNKNOWN Primary Care Provider Unavailable DR SHERRY Unavailable Unavailable TIBURCIO PIERCE M.D. Unavailable Unavailable DANYELLE HAND M.D. Unavailable Unavailable KHAI GILLETTE M.D. Unavailable Unavailable Problems This patient has no known problems. Allergies, Adverse Reactions, Alerts This patient has no known allergies or adverse reactions. Medications This patient has no known medications. Encounters Start End Encounter Admission Attending Care Care Encounter Date/Time Date/Time Type Type Clinicians Facility Department ID 2017-12-[address] [facility] [id number] 09:23:00 2019-08-12 2019-08-17 Inpatient E PRAKASH [facility] [id number] 00:12:00 14:40:00 2017-07-02 2017-07-07 Inpatient Luis Alfred[facility] [id number] 14:57:00 22:44:00 TIBURCIO Results Test Description Test Time Test Comments Text Results Atomic Results Result Comments ANAEROBIC CULTURE 2019-08-21 14:27:00 Test Item Value Reference Range Comments Culture Observations (test code = COB1) NO ANAEROBES I SOLATED AT 5 DAYS. CULTURE HELD FOR 5 DAYS ANAEROBIC [id number] 14:27:00 Test Item Value Reference Range Comments Culture Observations (test code NO ANAEROBES ISOLATED AT 5 = COB1) DAYS. CULTURE HELD FOR 5 DAYS WOUND/SKIN/ABS.&GRAMSTAIN [id number] 10:33:00 Test Item Value Reference Range Comments Direct Exam (test FEW WHITE BLOOD CELLS code = DE1) SEEN Direct Exam (test NO ORGANISMS SEEN code = DE2) Isolate 1 (test Coagulase negative REFER TO #[id number] FOR code = ISO1) staphylococcus IDENTIFICATION A ND SUSCEPTIBILITY WOUND/SKIN/ABS.&GRAMSTAIN [id number] 10:32:00 Test Item Value Reference Range Comments Direct Exam (test code = DE1) NO WHITE BLOOD CELLS SEEN Direct Exam (test code = DE2) NO ORGANISMS SEEN Isolate 1 (test code = ISO1) Alvaro prajapati GLUCOMETER GLUCOSE- LAB USE [id number] 11:30:00 Test Item Value Reference Range Comments GLUCOMETER (test code = GMG) 275 mg/dL 70-100 IZA ANED METERMeter ID: [id number] or: [id number] L[address] COLINDRES BLOOD [id number] 07:35:00 Test Item Value Reference Range Comments Culture Observations (test code = NO GROWTH AFTER 5 DAYS COB1) BASIC METABOLIC PANEL 2019-08-17 06:22:00 Test Item Value Reference Range Comments GLUCOSE (test code = 06D) 170 mg/dL 75-100 SODIUM (test code = 01A) 135 mmol/L 136-145 POTASSIUM (test code = 01B) 4.2 mmol/L 3.6-5.1 CHLORIDE (test code = 04A) 103 mmol/L 98-107 CO2 (test code = 02A) 25 mmol/L 22-32 ANION GAP (test code = ANG) 11.2 mmol/L BUN (test code = 05D) 11 mg/dL 7-18 CREATININE (test code = 03E) 1.0 mg/dL 0.7-1.3 BUN/CREA (test code = BCR) 11 12-20 CALCIUM (test code = 09D) 8.3 mg/dL 8.3-9.5 GLUCOMETER GLUCOSE- LAB USE [id number] 06:05:00 Test Item Value Reference Range Comments GLUCOMETER (test code = GMG) 173 mg/dL 70-100 IZA ANED METERMeter ID: [id number] or: [id number] CBC (INCLUDES AUTOMATED DIFFERENTIAL)*[id number] 05:47:00 Test Item Value Reference Range Comments WBC (test code = WBC) 8.9 10\S\3/uL 4.5-11.0 RBC (test code = RBC) 4.21 10\S\6/uL 4.30-5.70 HGB (test code = HBG) 10.8 g/dL 14.0-18.0 HCT (test code = HCT) 35.1 % 35.0-46.0 MCV (test code = MCV) 83.4 fL 80.0-94.0 MCH (test code = MCH) 25.7 pg 27.0-31.0 MCHC (test code = MCHC) 30.8 g/dL 32.0-36.0 RDW (test code = RDW) 14.8 % 11.5-14.5 PLT (test code = PLT) 245 10\S\3/uL 130-400 MPV (test code = MPV) 9.7 fL 9.4-12.4 NEUTROP # (test code = NE#) 5.5 10\S\3/uL 2.0-8.0 LYMPH # (test code = LY#) 2.4 10\S\3/uL 1.2-4.0 MONOCYTE # (test code = MO#) 0.7 10\S\3/uL 0.0-1.1 EOSINOPH # (test code = EO#) 0.2 10\S\3/uL 0.0-0.7 BASOPHIL # (test code = BA#) 0.1 10\S\3/uL 0.0-0.3 IG # (test code = IG#) 0.05 10\S\3/uL 0.00-0.06 NRBC # (test code = NRBC#) 0.00 10\S\3/uL 0.00-0.01 NEUTROPH % (test code = NE%) 62.3 % 35.0-73.0 LYMPH % (test code = LY%) 26.6 % 20.0-55.0 MONO % (test code = MO%) 7.6 % 2.5-10.0 EOSINOPH % (test code = EO%) 2.1 % 0.0-5.0 BASOPHIL % (test code = BA%) 0.8 % 0.0-2.0 IG % (test code = IG%) 0.6 % 0.0-0.8 NRBC% (test code = NRBC%) 0.0 % 0.0-0.2 MANDIFF (test code = WMDIFF) NO NO RBC MORPH (test code = WRBCMOR) NORMAL XR FOOT LEFT 1 OR 2 VIEW *WW*2019-08-16 20:35:57Clinical history: Incision and drainage.Location: A 1.Findings: 2 views of the left foot are compared with prior study dated 2018. There has been interval resection of the distal portion oftheremaining fifth metatarsal. There is diffuse moderate soft tissue swelling ofthe foot. No other acute abnormalities.Impression:1. There has been interval resection of the distal portion of the remainingfifth metatarsal. Diffuse moderate soft tissue swelling remains.GLUCOMETER GLUCOSE- LAB USE ONLY 2019-08-16 20:11:00 Test Item Value Reference Range Comments GLUCOMETER (test code = GMG) 257 mg/dL 70-100 IZA ANED METERMeter ID: [id number] or: 9[address] MA[address] NOEIL KIDD GLUCOMETER GLUCOSE- LAB USE [id number] 16:17:00 Test Item Value Reference Range Comments GLUCOMETER (test code = 306 mg/dL 70-100 DAILY MA INTENANCEMeter ID: GMG) [id number] or: 9999 MA[address] CANALESUPIL KIDD GLUCOMETER GLUCOSE- LAB USE [id number] 12:08:00 Test Item Value Reference Range Comments GLUCOMETER (test code = GMG) 241 mg/dL 70-100 Met er ID: [id number]: [id number] OZZIE TAA GLUCOMETER GLUCOSE- LAB USE [id number] 09:52:00 Test Item Value Reference Range Comments GLUCOMETER (test code = 239 mg/dL 70-100 DAILY MA INTENANCEMeter ID: GMG) [id number] or: [id number] MA[address] CANALESUPIL MARTI COMPREHENSIVE METABOLIC LARA 2019-08-16 07:00:00 Test Item Value Reference Range Comments GLUCOSE (test code = 06D) 182 mg/dL 75-100 SODIUM (test code = 01A) 137 mmol/L 136-145 POTASSIUM (test code = 01B) 3.9 mmol/L 3.6-5.1 CHLORIDE (test code = 04A) 102 mmol/L 98-107 CO2 (test code = 02A) 31 mmol/L 22-32 ANION GAP (test code = ANG) 7.9 mmol/L BUN (test code = 05D) 16 mg/dL 7-18 CREATININE (test code = 03E) 1.0 mg/dL 0.7-1.3 BUN/CREA (test code = BCR) 17 12-20 CALCIUM (test code = 09D) 8.5 mg/dL 8.3-9.5 BILI TOTAL (test code = 11A) 0.6 mg/dL 0.2-1.0 PROTEIN (test code = 07D) 6.6 g/dL 6.4-8.2 ALBUMIN (test code = 08D) 2.4 g/dL 3.5-4.8 GLOBULIN (test code = GLB) 4.2 g/dL 1.5-3.8 ALB/GLOB (test code = AGRR) 0.6 1.0-2.6 ALK PHOS (test code = 35A) 126 IU/L 42-121 AST (test code = 30A) 25 IU/L <=42 ALT (test code = 31A) 31 IU/L <=78 GLUCOMETER GLUCOSE- LAB USE [id number] 05:14:00 Test Item Value Reference Range Comments GLUCOMETER (test code = GMG) 194 mg/dL 70-100 IZA JOHNNIE METERMeter ID: [id number] or: [id number] LEANNE ROA PRO TIME AND PTT 2019-08-16 02:47:00 Test Item Value Reference Range Comments PT (test code = TT) 12.0 s 9.8-13.6 INR (test code = INR) 1.0 INRH (test code = INRH) SUGGESTED THERAPEUTIC RANGE FOR INR: 2.5 - 3.5 For Patients with Prosthetic Valves or Patients with recurrent Thromboembolic Events 2.0 - 3.0 For Most Other Applications PTT (test code = PTT) 37.4 s 20.2-38.0 PTTH (test code = PTTH) To monitor the effectiveness of heparin, we offer the Anti-Xa (Heparin Assay). It can be used for either unfractionated or LMW Heparin. Order Code is ANTI-XA CBC (INCLUDES AUTOMATED DIFFERENTIAL)*[id number] 02:26:00 Test Item Value Reference Range Comments WBC (test code = WBC) 7.7 10\S\3/uL 4.5-11.0 RBC (test code = RBC) 3.97 10\S\6/uL 4.30-5.70 HGB (test code = HBG) 10.2 g/dL 14.0-18.0 HCT (test code = HCT) 31.5 % 35.0-46.0 MCV (test code = MCV) 79.3 fL 80.0-94.0 MCH (test code = MCH) 25.7 pg 27.0-31.0 MCHC (test code = MCHC) 32.4 g/dL 32.0-36.0 RDW (test code = RDW) 14.4 % 11.5-14.5 PLT (test code = PLT) 327 10\S\3/uL 130-400 MPV (test code = MPV) 8.8 fL 9.4-12.4 NEUTROP # (test code = NE#) 3.9 10\S\3/uL 2.0-8.0 LYMPH # (test code = LY#) 2.7 10\S\3/uL 1.2-4.0 MONOCYTE # (test code = MO#) 0.6 10\S\3/uL 0.0-1.1 EOSINOPH # (test code = EO#) 0.3 10\S\3/uL 0.0-0.7 BASOPHIL # (test code = BA#) 0.1 10\S\3/uL 0.0-0.3 IG # (test code = IG#) 0.04 10\S\3/uL 0.00-0.06 NRBC # (test code = NRBC#) 0.02 10\S\3/uL 0.00-0.01 NEUTROPH % (test code = NE%) 50.7 % 35.0-73.0 LYMPH % (test code = LY%) 35.7 % 20.0-55.0 MONO % (test code = MO%) 8.0 % 2.5-10.0 EOSINOPH % (test code = EO%) 4.3 % 0.0-5.0 BASOPHIL % (test code = BA%) 0.8 % 0.0-2.0 IG % (test code = IG%) 0.5 % 0.0-0.8 NRBC% (test code = NRBC%) 0.3 % 0.0-0.2 MANDIFF (test code = WMDIFF) NO NO RBC MORPH (test code = WRBCMOR) NORMAL GLUCOMETER GLUCOSE- LAB USE [id number] 20:26:00 Test Item Value Reference Range Comments GLUCOMETER (test code = GMG) 360 mg/dL 70-100 IZA ANED METERMeter ID: [id number] or: [id number] DOC SHARIF GLUCOMETER GLUCOSE- LAB USE [id number] 16:22:00 Test Item Value Reference Range Comments GLUCOMETER (test code = GMG) 246 mg/dL 70-100 Met er ID: [id number]: 9905 RICHARDLILLI VARELA ACHO GLUCOMETER GLUCOSE- LAB USE [id number] 11:54:00 Test Item Value Reference Range Comments GLUCOMETER (test code = GMG) 241 mg/dL 70-100 Met er ID: [id number]: 9924 OFELIA DAHLERSON GLUCOMETER GLUCOSE- LAB USE [id number] 05:11:00 Test Item Value Reference Range Comments GLUCOMETER (test code = 314 mg/dL 70-100 DAILY MA INTENANCEMeter ID: GMG) [id number] or: 9999 JAYASREE VASUPIL KIDD GLUCOMETER GLUCOSE- LAB USE [id number] 19:43:00 Test Item Value Reference Range Comments GLUCOMETER (test code = 288 mg/dL 70-100 DAILY MA INTENANCEMeter ID: GMG) [id number] or: 9[address] JAYASREE VASUPIL KIDD GLUCOMETER GLUCOSE- LAB USE [id number] 16:50:00 Test Item Value Reference Range Comments GLUCOMETER (test code = 186 mg/dL 70-100 DAILY MA INTENANCEMeter ID: GMG) [id number] or: 9924 OFELIA LOZADA ON WOUND/SKIN/ABS.&GRAMSTAIN [id number] 11:53:00 Test Item Value Reference Range Comments Culture Observations ORGANISM UNDER (test code = COB1) EVALUATION Isolate 1 (test code = Streptococcus Group B PEN ICILLIN AND AMPICILLIN ISO1) ARE DRUGS OF CHO ICE FOR TREATING BETA HE MOLYTIC STREPINFECTIONS. SUSCEPTIBILITY T ESTING OF PENICILLINS AND OTHER BETA LACATAMSAPP ROVED BY THE FDA FOR ADOLPH TING BETA HEMOLYTIC STREP INFECTIONS DOES NOT NEEDTO BE PERFOR MED ROUTINELY BECAUS E NONSUSCEPTIBILE ISOLATES ARE EXTREMELY RA RE. Isolate 1 (test code = Streptococcus Group B PEN ICILLIN AND AMPICILLIN ISO11) ARE DRUGS OF CHO ICE FOR TREATING BETA HE MOLYTIC STREPINFECTIONS. SUSCEPTIBILITY T ESTING OF PENICILLINS AND OTHER BETA LACATAMSAPP ROVED BY THE FDA FOR ADOLPH TING BETA HEMOLYTIC STREP INFECTIONS DOES NOT NEEDTO BE PERFOR MED ROUTINELY BECAUS E NONSUSCEPTIBILE ISOLATES ARE EXTREMELY RA RE. GLUCOMETER GLUCOSE- LAB USE [id number] 11:51:00 Test Item Value Reference Range Comments GLUCOMETER (test code = GMG) 181 mg/dL 70-100 Met er ID: [id number]: 9905 RICHARD VARELA ACHO GLUCOMETER GLUCOSE- LAB USE [id number] 06:08:00 Test Item Value Reference Range Comments GLUCOMETER (test code = GMG) 264 mg/dL 70-100 Met er ID: [id number]: 2014 EVELIN GRIFFIN LIBO GLUCOMETER GLUCOSE- LAB USE [id number] 19:56:00 Test Item Value Reference Range Comments GLUCOMETER (test code = GMG) 278 mg/dL 70-100 IZA ANED METERMeter ID: [id number] or: 9588 DOC SHARIF GLUCOMETER GLUCOSE- LAB USE [id number] 16:30:00 Test Item Value Reference Range Comments GLUCOMETER (test code = GMG) 456 mg/dL 70-100 Met er ID: [id number]: 9169 BRI MIRTO GLUCOMETER GLUCOSE- LAB USE [id number] 12:08:00 Test Item Value Reference Range Comments GLUCOMETER (test code = GMG) 302 mg/dL 70-100 Met er ID: [id number]: 9924 OFELIA LINARES MRI LOW EXT NON JOINT W/WO CON*WW*2019-08-13 10:58:34LOCATION: R16MRI OF THE LEFT FOOT WITH AND WITHOUT INTRAVENOUS CONTRASTHISTORY: Ulceration.TECHNIQUE: Multiplanar and multisequence MR imaging of the left foot wasperformed before and after the administration of intravenous gadolinium, 20 mLof Dotarem. Creatinine 1.3. GFR 71.COMPARISON: 08/11/2019 left foot radiograph.FINDINGS:There is amputation at the fifth metatarsal at the mid diaphysis. At theamputation site is a focal ulceration plantarly measuring 1.6 x 1.1 cm in axialdimensions and 0.6 cm deep. There is surrounding subcutaneous edema andenhancement with mild marrow edema and enhancement involving the fifthmetatarsal diaphysis without confluent T1 hypointense marrow signal melena. Nodefinite erosion is identified at the fifth metatarsal surgical margin. Thereis no organized, rim-enhancing fluid collection.Chronic fractures are identified at the second, third and fourth metatarsalswith nonunion at the second metatarsal. Subchondral marrow edema is identifiedat the first metatarsal base with prominent marginal osteophytes at the firsttarsometatarsal articulation. There is mild hallux valgus.There is no significant metatarsophalangeal joint effusion. There is noevidence of a talar dome ost eochondral lesion.The muscles exhibit diffuse edema with mild enhancement.IMPRESSION:1. Plantar ulceration at the fifth digit amputation site with reactive marrowedema/enhancement involving the remnant fifth metatarsal. No evidence forosteomyelitis or discrete abscess.2. 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 BLOOD [id number] 07:42:00 Test Item Value Reference Range Comments Culture Observations POSITIVE BLOOD (test code = COB1) CULTURE Culture Observations 1 OF 4 BOTTLES (test code = COB2) Isolate 1 (test code = Coagulase negative POSSIB LE CONTAMINATIONIF ISO1) staphylococcus SUSCEPTIBILITY N EEDED, PLEASE NOTIFY [place] TECH BRAZER TESTER WITHIN 24 HOURS COMPREHENSIVE METABOLIC LARA *WW*2019-08-13 06:39:00 Test Item Value Reference Range Comments GLUCOSE (test code = 06D) 339 mg/dL 75-100 SODIUM (test code = 01A) 130 mmol/L 136-145 POTASSIUM (test code = 01B) 3.8 mmol/L 3.6-5.1 CHLORIDE (test code = 04A) 104 mmol/L 98-107 CO2 (test code = 02A) 19 mmol/L 22-32 ANION GAP (test code = ANG) 10.8 mmol/L BUN (test code = 05D) 14 mg/dL 7-18 CREATININE (test code = 03E) 1.1 mg/dL 0.7-1.3 BUN/CREA (test code = BCR) 13 12-20 CALCIUM (test code = 09D) 8.0 mg/dL 8.3-9.5 BILI TOTAL (test code = 11A) 0.4 mg/dL 0.2-1.0 PROTEIN (test code = 07D) 6.2 g/dL 6.4-8.2 ALBUMIN (test code = 08D) 2.1 g/dL 3.5-4.8 GLOBULIN (test code = GLB) 4.1 g/dL 1.5-3.8 ALB/GLOB (test code = AGRR) 0.5 1.0-2.6 ALK PHOS (test code = 35A) 114 IU/L 42-121 AST (test code = 30A) 23 IU/L <=42 ALT (test code = 31A) 18 IU/L <=78 CBC (INCLUDES AUTOMATED DIFFERENTIAL)*[id number] 05:59:00 Test Item Value Reference Range Comments WBC (test code = WBC) 9.0 10\S\3/uL 4.5-11.0 RBC (test code = RBC) 3.92 10\S\6/uL 4.30-5.70 HGB (test code = HBG) 10.0 g/dL 14.0-18.0 HCT (test code = HCT) 32.8 % 35.0-46.0 MCV (test code = MCV) 83.7 fL 80.0-94.0 MCH (test code = MCH) 25.5 pg 27.0-31.0 MCHC (test code = MCHC) 30.5 g/dL 32.0-36.0 RDW (test code = RDW) 15.1 % 11.5-14.5 PLT (test code = PLT) 276 10\S\3/uL 130-400 MPV (test code = MPV) 9.6 fL 9.4-12.4 NEUTROP # (test code = NE#) 5.6 10\S\3/uL 2.0-8.0 LYMPH # (test code = LY#) 2.4 10\S\3/uL 1.2-4.0 MONOCYTE # (test code = MO#) 0.7 10\S\3/uL 0.0-1.1 EOSINOPH # (test code = EO#) 0.3 10\S\3/uL 0.0-0.7 BASOPHIL # (test code = BA#) 0.1 10\S\3/uL 0.0-0.3 IG # (test code = IG#) 0.03 10\S\3/uL 0.00-0.06 NRBC # (test code = NRBC#) 0.00 10\S\3/uL 0.00-0.01 NEUTROPH % (test code = NE%) 62.5 % 35.0-73.0 LYMPH % (test code = LY%) 26.0 % 20.0-55.0 MONO % (test code = MO%) 7.5 % 2.5-10.0 EOSINOPH % (test code = EO%) 2.8 % 0.0-5.0 BASOPHIL % (test code = BA%) 0.9 % 0.0-2.0 IG % (test code = IG%) 0.3 % 0.0-0.8 NRBC% (test code = NRBC%) 0.0 % 0.0-0.2 MANDIFF (test code = WMDIFF) NO NO RBC MORPH (test code = WRBCMOR) NORMAL GLUCOMETER GLUCOSE- LAB USE [id number] 04:53:00 Test Item Value Reference Range Comments GLUCOMETER (test code = GMG) 374 mg/dL 70-100 Met er ID: [id number]: 9908 [employer] GLUCOMETER GLUCOSE- LAB USE [id number] 23:49:00 Test Item Value Reference Range Comments GLUCOMETER (test code = GMG) 192 mg/dL 70-100 Met er ID: [id number]: 4845 CHRISTINA ESP TechnologiesAN GLUCOMETER GLUCOSE- LAB USE [id number] 19:32:00 Test Item Value Reference Range Comments GLUCOMETER (test code = GMG) 183 mg/dL 70-100 Met er ID: [id number]: 9908 [employer] GLUCOMETER GLUCOSE- LAB USE [id number] 16:43:00 Test Item Value Reference Range Comments GLUCOMETER (test code = GMG) 244 mg/dL 70-100 Met er ID: [id number]: 9924 OFELIA DAHLERSON GLUCOMETER GLUCOSE- LAB USE [id number] 12:15:00 Test Item Value Reference Range Comments GLUCOMETER (test code = 331 mg/dL 70-100 DAILY MA INTENANCEMeter ID: GMG) [id number] or: 9924 OFELIA LOZADA ON GLUCOMETER GLUCOSE- LAB USE [id number] 08:40:00 Test Item Value Reference Range Comments GLUCOMETER (test code = GMG) 350 mg/dL 70-100 Met er ID: [id number]: 3103 MAYRA CORRIGAN COMPREHENSIVE METABOLIC LARA *WW*2019-08-12 06:38:00 Test Item Value Reference Range Comments GLUCOSE (test code = 06D) 433 mg/dL 75-100 SODIUM (test code = 01A) 129 mmol/L 136-145 POTASSIUM (test code = 01B) 3.3 mmol/L 3.6-5.1 CHLORIDE (test code = 04A) 100 mmol/L 98-107 CO2 (test code = 02A) 21 mmol/L 22-32 ANION GAP (test code = ANG) 11.3 mmol/L BUN (test code = 05D) 16 mg/dL 7-18 CREATININE (test code = 03E) 1.3 mg/dL 0.7-1.3 BUN/CREA (test code = BCR) 13 12-20 CALCIUM (test code = 09D) 8.5 mg/dL 8.3-9.5 BILI TOTAL (test code = 11A) 0.3 mg/dL 0.2-1.0 PROTEIN (test code = 07D) 6.8 g/dL 6.4-8.2 ALBUMIN (test code = 08D) 2.5 g/dL 3.5-4.8 GLOBULIN (test code = GLB) 4.3 g/dL 1.5-3.8 ALB/GLOB (test code = AGRR) 0.6 1.0-2.6 ALK PHOS (test code = 35A) 135 IU/L 42-121 AST (test code = 30A) 9 IU/L <=42 ALT (test code = 31A) 18 IU/L <=78 CBC (INCLUDES AUTOMATED DIFFERENTIAL)*[id number] 05:50:00 Test Item Value Reference Range Comments WBC (test code = WBC) 10.1 10\S\3/uL 4.5-11.0 RBC (test code = RBC) 4.07 10\S\6/uL 4.30-5.70 HGB (test code = HBG) 10.2 g/dL 14.0-18.0 HCT (test code = HCT) 32.0 % 35.0-46.0 MCV (test code = MCV) 78.6 fL 80.0-94.0 MCH (test code = MCH) 25.1 pg 27.0-31.0 MCHC (test code = MCHC) 31.9 g/dL 32.0-36.0 RDW (test code = RDW) 14.8 % 11.5-14.5 PLT (test code = PLT) 282 10\S\3/uL 130-400 MPV (test code = MPV) 9.9 fL 9.4-12.4 NEUTROP # (test code = NE#) 6.3 10\S\3/uL 2.0-8.0 LYMPH # (test code = LY#) 2.5 10\S\3/uL 1.2-4.0 MONOCYTE # (test code = MO#) 0.9 10\S\3/uL 0.0-1.1 EOSINOPH # (test code = EO#) 0.2 10\S\3/uL 0.0-0.7 BASOPHIL # (test code = BA#) 0.1 10\S\3/uL 0.0-0.3 IG # (test code = IG#) 0.06 10\S\3/uL 0.00-0.06 NRBC # (test code = NRBC#) 0.00 10\S\3/uL 0.00-0.01 NEUTROPH % (test code = NE%) 62.5 % 35.0-73.0 LYMPH % (test code = LY%) 25.3 % 20.0-55.0 MONO % (test code = MO%) 8.9 % 2.5-10.0 EOSINOPH % (test code = EO%) 1.9 % 0.0-5.0 BASOPHIL % (test code = BA%) 0.8 % 0.0-2.0 IG % (test code = IG%) 0.6 % 0.0-0.8 NRBC% (test code = NRBC%) 0.0 % 0.0-0.2 MANDIFF (test code = WMDIFF) NO NO RBC MORPH (test code = WRBCMOR) NORMAL GLUCOMETER GLUCOSE- LAB USE [id number] 03:06:00 Test Item Value Reference Range Comments GLUCOMETER (test code = GMG) 497 mg/dL 70-100 Met er ID: [id number]: 3103 MAYRA LLANUEVA GLUCOMETER GLUCOSE- LAB USE [id number] 00:19:00 Test Item Value Reference Range Comments GLUCOMETER (test code = GMG) 515 mg/dL 70-100 Met er ID: [id number]: 3103 MAYRA LLANUEVA GLUCOMETER GLUCOSE- LAB USE [id number] 22:09:00 Test Item Value Reference Range Comments GLUCOMETER (test code = GMG) 591 mg/dL 70-100 Met er ID: [id number]: 95[address] URINALYSIS WITH MICRO *WW*2019-08-11 20:47:00 Test Item Value Reference Range Comments COLOR (test code = COLU) YELLOW YELLOW CLARITY (test code = CLA) SLT HAZY CLEAR GLUCOSE UR (test code = UA GLUCOSE) 3+ NEGATIVE BILI UR (test code = BILE) NEGATIVE NEGATIVE KETONES UR (test code = MAU) NEGATIVE NEGATIVE SP GRAVITY (test code = SPGR) <=1.005 1.005-1.030 PH UR (test code = PH) 6.0 4.5-8.0 PROTEIN UR (test code = PU) TRACE NEGATIVE UROBIL UR (test code = UROQ) 0.2 EU/dL 0.2-1.0 NITRITE UR (test code = NITRITE) NEGATIVE NEGATIVE BLOOD UR (test code = UA BLOOD) 1+ NEGATIVE LEUK ES UR (test code = LEUK) NEGATIVE NEGATIVE WBC UR (test code = UWBC) 1 /HPF 0-3 RBC UR (test code = URBC) 3 /HPF 0-2 EPITH UR (test code = UEPC) NONE /LPF NONE BACTERIA UR (test code = UBACT) FEW /HPF NONE CAST UR (test code = CAST) /LPF NONE CRYSTAL UR (test code = CRYU) / LPF NONE MUCUS UR (test code = MUC) / HPF NONE AMORPH UR (test code = SHANICE) / HPF NONE TRICH UR (test code = UTRICH) /HPF NONE YEAST UR (test code = UY) FEW /HPF NONE SPERM UR (test code = USPERM) /HPF NONE COMPREHENSIVE METABOLIC LARA 2019-08-11 20:10:00 Test Item Value Reference Range Comments GLUCOSE (test code = 06D) 771 mg/dL 75-100 SODIUM (test code = 01A) 125 mmol/L 136-145 POTASSIUM (test code = 01B) 3.8 mmol/L 3.6-5.1 CHLORIDE (test code = 04A) 95 mmol/L 98-107 CO2 (test code = 02A) 21 mmol/L 22-32 ANION GAP (test code = ANG) 12.8 mmol/L BUN (test code = 05D) 15 mg/dL 7-18 CREATININE (test code = 03E) 1.6 mg/dL 0.7-1.3 BUN/CREA (test code = BCR) 9 12-20 CALCIUM (test code = 09D) 8.3 mg/dL 8.3-9.5 BILI TOTAL (test code = 11A) 0.3 mg/dL 0.2-1.0 PROTEIN (test code = 07D) 7.0 g/dL 6.4-8.2 ALBUMIN (test code = 08D) 2.6 g/dL 3.5-4.8 GLOBULIN (test code = GLB) 4.4 g/dL 1.5-3.8 ALB/GLOB (test code = AGRR) 0.6 1.0-2.6 ALK PHOS (test code = 35A) 146 IU/L 42-121 AST (test code = 30A) 11 IU/L <=42 ALT (test code = 31A) 17 IU/L <=78 CBC (INCLUDES AUTOMATED DIFFERENTIAL)*[id number] 19:52:00 Test Item Value Reference Range Comments WBC (test code = WBC) 11.5 10\S\3/uL 4.5-11.0 RBC (test code = RBC) 4.36 10\S\6/uL 4.30-5.70 HGB (test code = HBG) 11.2 g/dL 14.0-18.0 HCT (test code = HCT) 34.1 % 35.0-46.0 MCV (test code = MCV) 78.2 fL 80.0-94.0 MCH (test code = MCH) 25.7 pg 27.0-31.0 MCHC (test code = MCHC) 32.8 g/dL 32.0-36.0 RDW (test code = RDW) 15.0 % 11.5-14.5 PLT (test code = PLT) 281 10\S\3/uL 130-400 MPV (test code = MPV) 9.9 fL 9.4-12.4 NEUTROP # (test code = NE#) 9.3 10\S\3/uL 2.0-8.0 LYMPH # (test code = LY#) 1.3 10\S\3/uL 1.2-4.0 MONOCYTE # (test code = MO#) 0.8 10\S\3/uL 0.0-1.1 EOSINOPH # (test code = EO#) 0.0 10\S\3/uL 0.0-0.7 BASOPHIL # (test code = BA#) 0.0 10\S\3/uL 0.0-0.3 IG # (test code = IG#) 0.06 10\S\3/uL 0.00-0.06 NRBC # (test code = NRBC#) 0.00 10\S\3/uL 0.00-0.01 NEUTROPH % (test code = NE%) 81.0 % 35.0-73.0 LYMPH % (test code = LY%) 11.0 % 20.0-55.0 MONO % (test code = MO%) 7.0 % 2.5-10.0 EOSINOPH % (test code = EO%) 0.2 % 0.0-5.0 BASOPHIL % (test code = BA%) 0.3 % 0.0-2.0 IG % (test code = IG%) 0.5 % 0.0-0.8 NRBC% (test code = NRBC%) 0.0 % 0.0-0.2 MANDIFF (test code = WMDIFF) NO NO RBC MORPH (test code = WRBCMOR) NORMAL XR FOOT LEFT COMPLETE 3 VIEWS*WW*2019-08-11 19:20:34LOCATION: [id number]: 34-year-old male who presents with a nonhealing wound to his leftfoot.COMMENT:F rontal, oblique, and lateral radiographs of the left foot were examined.The patient is status post aprior amputation of the fifth toe at the level ofthe mid metatarsal. There is evidence in the adjacent soft tissues near thehead of the metatarsal remnant of an ulceration. The adjacent to the skeletonappears intact.Old, healed fractures of the bases of the second through fourth metatarsal arenoted.Ifthere is concern for osteomyelitis, either MRI imaging of the left foot or amultiphasic nuclear medicine bone scan is suggested.IMPRESSION:A soft tissue ulceration is seen in the patient's left foot adjacent to theremnant of the fifth metatarsal. There is no radiographic evidence to suggestosteomyelitis is present. Please see above comments for more details.POC Glucose, [id number] 07:22:00 Test Item Value Reference Range Comments POC Glucose (test code = 161 mg/dL 70-115 Notify RN or MDIf you consider POCGLUC) your patient cri tically ill, the Danial Accu-C hek InformII metershould not be used for Glucose determin ations.Draw a venous Glucose a nd send to the Main Lab for Kaylan lysis. Comprehensive Metabolic [id number] 07:08:00 Test Item Value Reference Range Comments Sodium (test code = NA) 138 mmol/L 135-145 Potassium (test code = 4.8 mmol/L 3.5-5.1 K) Chloride (test code = 98 mmol/L 98-105 CL) Carbon Dioxide (test 27 mmol/L 22-29 code = CO2) Glucose (test code = 142 mg/dL 70-115 GLU) Blood Urea Nitrogen 32 mg/dL 6-20 (test code = BUN) Creatinine (test code = 1.3 mg/dL 0.7-1.2 CREAT) Calcium (test code = CA) 9.4 mg/dL 8.3-10.5 Prot Total (test code = 6.7 g/dL 6.4-8.3 TP) Albumin (test code = 3.9 g/dL 3.5-5.2 ALB) A/G Ratio (test code = 1.4 Ratio AGRATIO) Globulin (test code = 2.8 2.9-3.1 GLOB) Bili Total (test code = 0.2 mg/dL 0.1-0.9 TBIL) Alk Phos (test code = 94 U/L 40-129 APHOS) AST (test code = AST) 11 U/L 1-40 ALT (test code = ALT) 14 U/L 1-41 BUN/Creatinine Ratio 24.6 (test code = BCRATIO) Anion Gap (test code = 13 mmol/L 7-16 AGAP) Estimated GFR (test code >60 mL/min/1.73m2 eGFR (estimated Glomerular = GFR) Filtration Rate) is an estimated value, calculated from the patient 's serum creatinine using the MDRD equation.It is N OT the patient's actual GFR. The eGFR provides a more clinicallyuseful measure of kidney disease t chen serum creatinine alone .This calculation take s sex and race into accoun t, if the informationis pr ovided. If the race is not provided, and the patient isAfrican-Americ an, multiply by 1.21 2. If sex is not provided, and thepatient is fe male, multiply by 0.74 2. Results for patients <18 years ofage have not b een validated by the MDRD study and should be interpretedwith caution.eGFR Res ult Interpretation:e GFR > or = 60 is in the Nor mal RangeeGFR < 60 m ay mean kidney diseaseeG FR < 15 may mean kidney failureRanges recommended by jose alfredo serrato [employer],http: //nkdep.nih .gov CBC with [id number] 06:48:00 Test Item Value Reference Range Comments WBC (test code = WBC) 11.0 K/cumm 4.4-10.5 RBC (test code = RBC) 5.24 M/cumm 4.10-5.70 Hemoglobin (test code = HGB) 11.9 gm/dL 13.4-17.4 Hematocrit (test code = HCT) 39.4 % 38.7-52.0 MCV (test code = MCV) 75.2 fL 80-100 MCH (test code = MCH) 22.8 pg 27.0-32.5 MCHC (test code = MCHC) 30.3 g/dL 32.0-37.5 RDW (test code = RDW) 15.6 % 11.5-14.5 Platelet Count (test code = PLTCT) 416 K/cumm 140-440 MPV (test code = MPV) 9.1 fL Diff Method (test code = DIFFM) Auto Neutrophil (test code = NEUT) 50.8 % 36-70 Lymphocyte (test code = LYMPH) 40.9 % 12-44 Monocyte (test code = MONO) 5.7 % 0-11 Eosinophil (test code = EOS) 1.6 % 0-7 Basophil (test code = BASO) 1.0 % 0-2 Neutro Abs (test code = ANEUT) 5.6 K/cumm 1.6-7.4 Lymph Abs (test code = ALYMPH) 4.5 K/cumm 0.5-4.6 Loup Abs (test code = AMONO) 0.6 K/cumm 0.0-1.2 Eos Abs (test code = AEOS) 0.18 K/cumm 0.00-0.74 Baso Abs (test code = ABASO) 0.1 K/cumm 0.00-0.21 Microcytosis (test code = MICRO) Slight Hypochromic (test code = HYPO) Slight POC Glucose, [id number] 19:07:00 Test Item Value Reference Range Comments POC Glucose (test code = 227 mg/dL 70-115 If you consider your patient POCGLUC) critically ill, the [facility] Accu-Chek Inform II metershould not be used for Glucose determinations.D raw a venous Glucose and send to the Main Lab for Analysis . POC Glucose, [id number] 16:11:00 Test Item Value Reference Range Comments POC Glucose (test code = 266 mg/dL 70-115 If you consider your patient POCGLUC) critically ill, the [facility] Accu-Chek Inform II metershould not be used for Glucose determinations.D raw a venous Glucose and send to the Main Lab for Analysis . POC Glucose, [id number] 11:36:00 Test Item Value Reference Range Comments POC Glucose (test code = 69 mg/dL 70-115 If you consider your patient POCGLUC) critically ill, the [facility] Accu-Chek Inform II metershould not be used for Glucose determinations.D raw a venous Glucose and send to the Main Lab for Analysis. POC Glucose, [id number] 07:45:00 Test Item Value Reference Range Comments POC Glucose (test code = 234 mg/dL 70-115 If you consider your patient POCGLUC) critically ill, the [facility] Accu-Chek Inform II metershould not be used for Glucose determinations.D raw a venous Glucose and send to the Main Lab for Analysis . POC Glucose, [id number] 19:15:00 Test Item Value Reference Range Comments POC Glucose (test code = 148 mg/dL 70-115 If you consider your patient POCGLUC) critically ill, the [facility] Accu-Chek Inform II metershould not be used for Glucose determinations.D raw a venous Glucose and send to the Main Lab for Analysis . POC Glucose, [id number] 15:37:00 Test Item Value Reference Range Comments POC Glucose (test code = 133 mg/dL 70-115 If you consider your patient POCGLUC) critically ill, the [facility] Accu-Chek Inform II metershould not be used for Glucose determinations.D raw a venous Glucose and send to the Main Lab for Analysis . POC Glucose, [id number] 11:10:00 Test Item Value Reference Range Comments POC Glucose (test code = 203 mg/dL 70-115 Notify RN or MDIf you consider POCGLUC) your patient cri tically ill, the [place] Accu-C hek InformII metershould not be used for Glucose determin ations.Draw a venous Glucose a nd send to the Main Lab for Kaylan lysis. POC Glucose, [id number] 07:29:00 Test Item Value Reference Range Comments POC Glucose (test code = 261 mg/dL 70-115 Notify RN or MDIf you consider POCGLUC) your patient cri tically ill, the [facility] Accu-C hek InformII metershould not be used for Glucose determin ations.Draw a venous Glucose a nd send to the Main Lab for Kaylan lysis. POC Glucose, [id number] 19:32:00 Test Item Value Reference Range Comments POC Glucose (test code = 226 mg/dL 70-115 If you consider your patient POCGLUC) critically ill, the [facility] Accu-Chek Inform II metershould not be used for Glucose determinations.D raw a venous Glucose and send to the Main Lab for Analysis . POC Glucose, [id number] 15:58:00 Test Item Value Reference Range Comments POC Glucose (test code = 138 mg/dL 70-115 Notify RN or MDIf you consider POCGLUC) your patient cri tically ill, the [facility] Accu-C hek InformII metershould not be used for Glucose determin ations.Draw a venous Glucose a nd send to the Main Lab for Kaylan lysis. POC Glucose, [id number] 11:48:00 Test Item Value Reference Range Comments POC Glucose (test code = 154 mg/dL 70-115 Notify RN or MDIf you consider POCGLUC) your patient cri tically ill, the [facility] Accu-C hek InformII metershould not be used for Glucose determin ations.Draw a venous Glucose a nd send to the Main Lab for Kaylan lysis. POC Glucose, [id number] 07:23:00 Test Item Value Reference Range Comments POC Glucose (test code = 131 mg/dL 70-115 Notify RN or MDIf you consider POCGLUC) your patient cri tically ill, the [facility] Accu-C hek InformII metershould not be used for Glucose determin ations.Draw a venous Glucose a nd send to the Main Lab for Kaylan lysis. POC Glucose, [id number] 19:38:00 Test Item Value Reference Range Comments POC Glucose (test code = 160 mg/dL 70-115 If you consider your patient POCGLUC) critically ill, the [facility] Accu-Chek Inform II metershould not be used for Glucose determinations.D raw a venous Glucose and send to the Main Lab for Analysis . POC Glucose, [id number] 17:27:00 Test Item Value Reference Range Comments POC Glucose (test code = 191 mg/dL 70-115 If you consider your patient POCGLUC) critically ill, the [facility] Accu-Chek Inform II metershould not be used for Glucose determinations.D raw a venous Glucose and send to the Main Lab for Analysis . POC Glucose, [id number] 14:19:00 Test Item Value Reference Range Comments POC Glucose (test code = 252 mg/dL 70-115 If you consider your patient POCGLUC) critically ill, the [facility] Accu-Chek Inform II metershould not be used for Glucose determinations.D raw a venous Glucose and send to the Main Lab for Analysis . POC Glucose, [id number] 11:41:00 Test Item Value Reference Range Comments POC Glucose (test code = 114 mg/dL 70-115 If you consider your patient POCGLUC) critically ill, the [facility] Accu-Chek Inform II metershould not be used for Glucose determinations.D raw a venous Glucose and send to the Main Lab for Analysis . POC Glucose, [id number] 05:58:00 Test Item Value Reference Range Comments POC Glucose (test code = 347 mg/dL 70-115 If you consider your patient POCGLUC) critically ill, the [facility] Accu-Chek Inform II metershould not be used for Glucose determinations.D raw a venous Glucose and send to the Main Lab for Analysis . POC Glucose, [id number] 19:27:00 Test Item Value Reference Range Comments POC Glucose (test code = 334 mg/dL 70-115 Notify RN or MDIf you consider POCGLUC) your patient cri tically ill, the [facility] Accu-C hek InformII metershould not be used for Glucose determin ations.Draw a venous Glucose a nd send to the Main Lab for Kaylan lysis. POC Glucose, [id number] 15:02:00 Test Item Value Reference Range Comments POC Glucose (test code = 72 mg/dL 70-115 If you consider your patient POCGLUC) critically ill, the [facility] Accu-Chek Inform II metershould not be used for Glucose determinations.D raw a venous Glucose and send to the Main Lab for Analysis. POC Glucose, [id number] 12:14:00 Test Item Value Reference Range Comments POC Glucose (test code = 110 mg/dL 70-115 If you consider your patient POCGLUC) critically ill, the [facility] Accu-Chek Inform II metershould not be used for Glucose determinations.D raw a venous Glucose and send to the Main Lab for Analysis . POC Glucose, [id number] 06:03:00 Test Item Value Reference Range Comments POC Glucose (test code = 224 mg/dL 70-115 If you consider your patient POCGLUC) critically ill, the [facility] Accu-Chek Inform II metershould not be used for Glucose determinations.D raw a venous Glucose and send to the Main Lab for Analysis . POC Glucose, [id number] 19:29:00 Test Item Value Reference Range Comments POC Glucose (test code = 300 mg/dL 70-115 Notify RN or MDIf you consider POCGLUC) your patient cri tically ill, the [facility] Accu-C hek InformII metershould not be used for Glucose determin ations.Draw a venous Glucose a nd send to the Main Lab for Kaylan lysis. POC Glucose, [id number] 16:00:00 Test Item Value Reference Range Comments POC Glucose (test code = 283 mg/dL 70-115 Notify RN or MDIf you consider POCGLUC) your patient cri tically ill, the [facility] Accu-C hek InformII metershould not be used for Glucose determin ations.Draw a venous Glucose a nd send to the Main Lab for Kaylan lysis. RPR, [id number] 14:24:00 Test Item Value Reference Range Comments RPR (test code = RPR) Non-Reactive Non-Reactive POC Glucose, [id number] 11:09:00 Test Item Value Reference Range Comments POC Glucose (test code = 278 mg/dL 70-115 Notify RN or MDIf you consider POCGLUC) your patient cri tically ill, the [facility] Accu-C hek InformII metershould not be used for Glucose determin ations.Draw a venous Glucose a nd send to the Main Lab for Kaylan lysis. Thyroid Stimulating Hormone (TSH)2017-12-04 09:16:00 Test Item Value Reference Range Comments TSH (test code = TSH) 2.05 mIU/mL 0.270-4.200 Lipid [id number] 08:56:00 Test Item Value Reference Range Comments Cholesterol (test code = 215 mg/dL 0-200 CHOL) Triglycerides (test code = 370 mg/dL 9-200 TRIG) HDL (test code = HDL) 33 mg/dL 40-60 Chol/HDL (test code = 6.5 Ratio 0.0-5.0 CHOLPHDL) LDL, Calculated (test code 108 0-130 (NOTE )RISK OF HEART = LDLC) DISEASEPublished by [facility] Associatio nAnalyte Optimal Boderline Increased RiskCHOL <200 20 0-239 >240TRIG <150 150-199 >200HDL Male: >60 <40HDL Female: &g t;60 <50LDL <100 130-159 >1 60LDL NEAR O PTIMAL IS 100-129 VLDL (test code = VLDL) 74 mg/dL 5-40 LDL/HDL (test code = 3 LDLPHDL) POC Glucose, [id number] 05:44:00 Test Item Value Reference Range Comments POC Glucose (test code = 229 mg/dL 70-115 Notify RN or MDIf you consider POCGLUC) your patient cri tically ill, the [facility] Accu-C hek InformII metershould not be used for Glucose determin ations.Draw a venous Glucose a nd send to the Main Lab for Kaylan lysis. POC Glucose, [id number] 11:20:00 Test Item Value Reference Range Comments POC Glucose (test code = 160 mg/dL 70-115 If you consider your patient POCGLUC) critically ill, the [facility] Accu-Chek Inform II metershould not be used for Glucose determinations.D raw a venous Glucose and send to the Main Lab for Analysis . POC Glucose, [id number] 07:41:00 Test Item Value Reference Range Comments POC Glucose (test code = 121 mg/dL 70-115 If you consider your patient POCGLUC) critically ill, the [facility] Accu-Chek Inform II metershould not be used for Glucose determinations.D raw a venous Glucose and send to the Main Lab for Analysis . POC Glucose, [id number] 21:24:00 Test Item Value Reference Range Comments POC Glucose (test code = 108 mg/dL 70-115 If you consider your patient POCGLUC) critically ill, the [facility] Accu-Chek Inform II metershould not be used for Glucose determinations.D raw a venous Glucose and send to the Main Lab for Analysis . POC Glucose, [id number] 15:55:00 Test Item Value Reference Range Comments POC Glucose (test code = 160 mg/dL 70-115 Notify RN or MDIf you consider POCGLUC) your patient cri tically ill, the [facility] Accu-C hek InformII metershould not be used for Glucose determin ations.Draw a venous Glucose a nd send to the Main Lab for Kaylan lysis. POC Glucose, [id number] 11:21:00 Test Item Value Reference Range Comments POC Glucose (test code = 111 mg/dL 70-115 If you consider your patient POCGLUC) critically ill, the [facility] Accu-Chek Inform II metershould not be used for Glucose determinations.D raw a venous Glucose and send to the Main Lab for Analysis . POC Glucose, [id number] 08:06:00 Test Item Value Reference Range Comments POC Glucose (test code = 135 mg/dL 70-115 If you consider your patient POCGLUC) critically ill, the [place] Accu-Chek Inform II metershould not be used for Glucose determinations.D raw a venous Glucose and send to the Main Lab for Analysis . POC Glucose, [id number] 22:43:00 Test Item Value Reference Range Comments POC Glucose (test code = 106 mg/dL 70-115 If you consider your patient POCGLUC) critically ill, the [facility] Accu-Chek Inform II metershould not be used for Glucose determinations.D raw a venous Glucose and send to the Main Lab for Analysis . POC Glucose, [id number] 16:42:00 Test Item Value Reference Range Comments POC Glucose (test code = 96 mg/dL 70-115 If you consider your patient POCGLUC) critically ill, the [facility] Accu-Chek Inform II metershould not be used for Glucose determinations.D raw a venous Glucose and send to the Main Lab for Analysis. POC Glucose, [id number] 11:10:00 Test Item Value Reference Range Comments POC Glucose (test code = 149 mg/dL 70-115 Notify RN or MDIf you consider POCGLUC) your patient cri tically ill, the [facility] Accu-C hek InformII metershould not be used for Glucose determin ations.Draw a venous Glucose a nd send to the Main Lab for Kaylan lysis. POC Glucose, [id number] 07:26:00 Test Item Value Reference Range Comments POC Glucose (test code = 124 mg/dL 70-115 If you consider your patient POCGLUC) critically ill, the [place] Accu-Chek Inform II metershould not be used for Glucose determinations.D raw a venous Glucose and send to the Main Lab for Analysis . POC Glucose, [id number] 21:16:00 Test Item Value Reference Range Comments POC Glucose (test code = 164 mg/dL 70-115 Notify RN or MDIf you consider POCGLUC) your patient cri tically ill, the [facility] Accu-C hek InformII metershould not be used for Glucose determin ations.Draw a venous Glucose a nd send to the Main Lab for Kaylan lysis. POC Glucose, [id number] 16:34:00 Test Item Value Reference Range Comments POC Glucose (test code = 100 mg/dL 70-115 If you consider your patient POCGLUC) critically ill, the [facility] Accu-Chek Inform II metershould not be used for Glucose determinations.D raw a venous Glucose and send to the Main Lab for Analysis . POC Glucose, [id number] 11:06:00 Test Item Value Reference Range Comments POC Glucose (test code = 120 mg/dL 70-115 If you consider your patient POCGLUC) critically ill, the [facility] Accu-Chek Inform II metershould not be used for Glucose determinations.D raw a venous Glucose and send to the Main Lab for Analysis . POC Glucose, [id number] 07:30:00 Test Item Value Reference Range Comments POC Glucose (test code = 80 mg/dL 70-115 If you consider your patient POCGLUC) critically ill, the [facility] Accu-Chek Inform II metershould not be used for Glucose determinations.D raw a venous Glucose and send to the Main Lab for Analysis. POC Glucose, [id number] 21:17:00 Test Item Value Reference Range Comments POC Glucose (test code = 175 mg/dL 70-115 Notify RN or MDIf you consider POCGLUC) your patient cri tically ill, the [facility] Accu-C hek InformII metershould not be used for Glucose determin ations.Draw a venous Glucose a nd send to the Main Lab for Kaylan lysis. POC Glucose, [id number] 17:46:00 Test Item Value Reference Range Comments POC Glucose (test code = 128 mg/dL 70-115 If you consider your patient POCGLUC) critically ill, the [facility] Accu-Chek Inform II metershould not be used for Glucose determinations.D raw a venous Glucose and send to the Main Lab for Analysis . POC Glucose, [id number] 11:35:00 Test Item Value Reference Range Comments POC Glucose (test code = 134 mg/dL 70-115 If you consider your patient POCGLUC) critically ill, the [facility] Accu-Chek Inform II metershould not be used for Glucose determinations.D raw a venous Glucose and send to the Main Lab for Analysis . POC Glucose, [id number] 08:10:00 Test Item Value Reference Range Comments POC Glucose (test code = 220 mg/dL 70-115 If you consider your patient POCGLUC) critically ill, the [facility] Accu-Chek Inform II metershould not be used for Glucose determinations.D raw a venous Glucose and send to the Main Lab for Analysis . Comprehensive Metabolic [id number] 06:52:00 Test Item Value Reference Range Comments Sodium (test code = NA) 136 mmol/L 135-145 Potassium (test code = 4.3 mmol/L 3.5-5.1 K) Chloride (test code = 97 mmol/L 98-105 CL) Carbon Dioxide (test 27 mmol/L 22-29 code = CO2) Glucose (test code = 137 mg/dL 70-115 GLU) Blood Urea Nitrogen 14 mg/dL 6-20 (test code = BUN) Creatinine (test code = 1.0 mg/dL 0.7-1.2 CREAT) Calcium (test code = CA) 8.7 mg/dL 8.3-10.5 Prot Total (test code = 5.9 g/dL 6.4-8.3 TP) Albumin (test code = 2.7 g/dL 3.5-5.2 ALB) A/G Ratio (test code = 0.8 Ratio AGRATIO) Globulin (test code = 3.2 2.9-3.1 GLOB) Bili Total (test code = 0.2 mg/dL 0.1-0.9 TBIL) Alk Phos (test code = 93 U/L 40-129 APHOS) AST (test code = AST) 32 U/L 1-40 ALT (test code = ALT) 7 U/L 1-41 BUN/Creatinine Ratio 14.0 (test code = BCRATIO) Anion Gap (test code = 12 mmol/L 7-16 AGAP) Estimated GFR (test code >60 mL/min/1.73m2 eGFR (estimated Glomerular = GFR) Filtration Rate) is an estimated value, calculated from the patient 's serum creatinine using the MDRD equation.It is N OT the patient's actual GFR. The eGFR provides a more clinicallyuseful measure of kidney disease t chen serum creatinine alone .This calculation take s sex and race into accoun t, if the informationis pr ovided. If the race is not provided, and the patient isAfrican-[place] an, multiply by 1.21 2. If sex is not provided, and thepatient is fe male, multiply by 0.74 2. Results for patients <18 years ofage have not b een validated by the MDRD study and should be interpretedwith caution.eGFR Res ult Interpretation:e GFR > or = 60 is in the Nor mal RangeeGFR < 60 m ay mean kidney diseaseeG FR < 15 may mean kidney failureRanges recommended by jose alfredo serrato [employer] [facility] [facility],http: //nkdep.nih .gov CBC with [id number] 06:34:00 Test Item Value Reference Range Comments WBC (test code = WBC) 11.5 K/cumm 4.4-10.5 RBC (test code = RBC) 3.67 M/cumm 4.10-5.70 Hemoglobin (test code = HGB) 8.7 gm/dL 13.4-17.4 Hematocrit (test code = HCT) 27.5 % 38.7-52.0 MCV (test code = MCV) 74.9 fL 80-100 MCH (test code = MCH) 23.8 pg 27.0-32.5 MCHC (test code = MCHC) 31.7 g/dL 32.0-37.5 RDW (test code = RDW) 15.2 % 11.5-14.5 Platelet Count (test code = PLTCT) 499 K/cumm 140-440 MPV (test code = MPV) 6.0 fL Diff Method (test code = DIFFM) Auto Neutrophil (test code = NEUT) 70.6 % 36-70 Lymphocyte (test code = LYMPH) 21.3 % 12-44 Monocyte (test code = MONO) 6.0 % 0-11 Eosinophil (test code = EOS) 1.7 % 0-7 Basophil (test code = BASO) 0.4 % 0-2 Neutro Abs (test code = ANEUT) 8.1 K/cumm 1.6-7.4 Lymph Abs (test code = ALYMPH) 2.4 K/cumm 0.5-4.6 Loup Abs (test code = AMONO) 0.7 K/cumm 0.0-1.2 Eos Abs (test code = AEOS) 0.19 K/cumm 0.00-0.74 Baso Abs (test code = ABASO) 0.1 K/cumm 0.00-0.21 Microcytosis (test code = MICRO) Slight POC Glucose, [id number] 20:28:00 Test Item Value Reference Range Comments POC Glucose (test code = 211 mg/dL 70-115 If you consider your patient POCGLUC) critically ill, the [facility] Accu-Chek Inform II metershould not be used for Glucose determinations.D raw a venous Glucose and send to the Main Lab for Analysis . POC Glucose, [id number] 17:09:00 Test Item Value Reference Range Comments POC Glucose (test code = 146 mg/dL 70-115 If you consider your patient POCGLUC) critically ill, the [place] Accu-Chek Inform II metershould not be used for Glucose determinations.D raw a venous Glucose and send to the Main Lab for Analysis . POC Glucose, [id number] 11:53:00 Test Item Value Reference Range Comments POC Glucose (test code = 136 mg/dL 70-115 If you consider your patient POCGLUC) critically ill, the [place] Accu-Chek Inform II metershould not be used for Glucose determinations.D raw a venous Glucose and send to the Main Lab for Analysis . POC Glucose, [id number] 07:57:00 Test Item Value Reference Range Comments POC Glucose (test code = 143 mg/dL 70-115 If you consider your patient POCGLUC) critically ill, the [place] Accu-Chek Inform II metershould not be used for Glucose determinations.D raw a venous Glucose and send to the Main Lab for Analysis . POC Glucose, [id number] 20:38:00 Test Item Value Reference Range Comments POC Glucose (test code = 152 mg/dL 70-115 Notify RN or MDIf you consider POCGLUC) your patient cri tically ill, the [place] Accu-C hek InformII metershould not be used for Glucose determin ations.Draw a venous Glucose a nd send to the Main Lab for Kaylan lysis. POC Glucose, [id number] 16:49:00 Test Item Value Reference Range Comments POC Glucose (test code = 171 mg/dL 70-115 Notify RN or MDIf you consider POCGLUC) your patient cri tically ill, the [place] Accu-C hek InformII metershould not be used for Glucose determin ations.Draw a venous Glucose a nd send to the Main Lab for Kaylan lysis. POC Glucose, [id number] 11:10:00 Test Item Value Reference Range Comments POC Glucose (test code = 160 mg/dL 70-115 Notify RN or MDIf you consider POCGLUC) your patient cri tically ill, the [facility] Accu-C hek InformII metershould not be used for Glucose determin ations.Draw a venous Glucose a nd send to the Main Lab for Kaylan lysis. POC Glucose, [id number] 07:36:00 Test Item Value Reference Range Comments POC Glucose (test code = 126 mg/dL 70-115 If you consider your patient POCGLUC) critically ill, the [facility] Accu-Chek Inform II metershould not be used for Glucose determinations.D raw a venous Glucose and send to the Main Lab for Analysis . POC Glucose, [id number] 20:51:00 Test Item Value Reference Range Comments POC Glucose (test code = 165 mg/dL 70-115 Notify RN or MDIf you consider POCGLUC) your patient cri tically ill, the [place] Accu-C hek InformII metershould not be used for Glucose determin ations.Draw a venous Glucose a nd send to the Main Lab for Kaylan lysis. POC Glucose, [id number] 16:42:00 Test Item Value Reference Range Comments POC Glucose (test code = 133 mg/dL 70-115 If you consider your patient POCGLUC) critically ill, the [facility] Accu-Chek Inform II metershould not be used for Glucose determinations.D raw a venous Glucose and send to the Main Lab for Analysis . POC Glucose, [id number] 11:19:00 Test Item Value Reference Range Comments POC Glucose (test code = 250 mg/dL 70-115 Notify RN or MDIf you consider POCGLUC) your patient cri tically ill, the [place] Accu-C hek InformII metershould not be used for Glucose determin ations.Draw a venous Glucose a nd send to the Main Lab for Kalyan lysis. Culture, [id number] 08:19:00Specimen: UrineCollected: 07/10/2017 12:47 Status: Final Last Updated: 07/12/2017 08:19 Culture Result (Final) (Final) 07/11/17 No growth 24 hours 07/12/17 No growth 48 hoursPOC Glucose, Blood 2017-07-12 07:26:00 Test Item Value Reference Range Comments POC Glucose (test code = 131 mg/dL 70-115 Notify RN or MDIf you consider POCGLUC) your patient cri tically ill, the [facility] Accu-C hek InformII metershould not be used for Glucose determin ations.Draw a venous Glucose a nd send to the Main Lab for Kaylan lysis. POC Glucose, [id number] 20:55:00 Test Item Value Reference Range Comments POC Glucose (test code = 140 mg/dL 70-115 If you consider your patient POCGLUC) critically ill, the [facility] Accu-Chek Inform II metershould not be used for Glucose determinations.D raw a venous Glucose and send to the Main Lab for Analysis . POC Glucose, [id number] 16:13:00 Test Item Value Reference Range Comments POC Glucose (test code = 151 mg/dL 70-115 Notify RN or MDIf you consider POCGLUC) your patient cri tically ill, the [facility] Accu-C hek InformII metershould not be used for Glucose determin ations.Draw a venous Glucose a nd send to the Main Lab for Kaylan lysis. POC Glucose, [id number] 11:43:00 Test Item Value Reference Range Comments POC Glucose (test code = 170 mg/dL 70-115 Notify RN or MDIf you consider POCGLUC) your patient cri tically ill, the [facility] Accu-C hek InformII metershould not be used for Glucose determin ations.Draw a venous Glucose a nd send to the Main Lab for Kaylan lysis. POC Glucose, [id number] 07:23:00 Test Item Value Reference Range Comments POC Glucose (test code = 207 mg/dL 70-115 Notify RN or MDIf you consider POCGLUC) your patient cri tically ill, the [facility] Accu-C hek InformII metershould not be used for Glucose determin ations.Draw a venous Glucose a nd send to the Main Lab for Kaylan lysis. POC Glucose, [id number] 20:24:00 Test Item Value Reference Range Comments POC Glucose (test code = 208 mg/dL 70-115 If you consider your patient POCGLUC) critically ill, the [facility] Accu-Chek Inform II metershould not be used for Glucose determinations.D raw a venous Glucose and send to the Main Lab for Analysis . POC Glucose, [id number] 17:14:00 Test Item Value Reference Range Comments POC Glucose (test code = 158 mg/dL 70-115 If you consider your patient POCGLUC) critically ill, the [facility] Accu-Chek Inform II metershould not be used for Glucose determinations.D raw a venous Glucose and send to the Main Lab for Analysis . Urinalysis [id number] 13:04:00 Test Item Value Reference Range Comments Color (test code = COLOR) Straw Yellow,Straw,Pl yellow Clarity (test code = CLAR) Clear Clear Specific [place] (test code = SPGR) 1.010 1.001-1.035 pH (test code = PH) 5.0 5.0-9.0 Ketone (test code = KET) Negative mg/dL Negative Glucose (test code = GLUCUR) Negative mg/dL Negative Protein (test code = PROT) Negative mg/dL Negative Bilirubin (test code = BILI) Negative mg/dL Negative Occult Blood (test code = UDOB) Negative Negative Urobilinogen (test code = UROB) 0.2 mg/dL 0.2-1.0 Nitrite (test code = NIT) Negative Negative Leuk Esterase (test code = LEUK) Negative Negative Micros Exam (test code = MEXAM) Not indicated POC Glucose, [id number] 11:48:00 Test Item Value Reference Range Comments POC Glucose (test code = 135 mg/dL 70-115 If you consider your patient POCGLUC) critically ill, the [facility] Accu-Chek Inform II metershould not be used for Glucose determinations.D raw a venous Glucose and send to the Main Lab for Analysis . POC Glucose, [id number] 07:47:00 Test Item Value Reference Range Comments POC Glucose (test code = 173 mg/dL 70-115 If you consider your patient POCGLUC) critically ill, the [facility] Accu-Chek Inform II metershould not be used for Glucose determinations.D raw a venous Glucose and send to the Main Lab for Analysis . Basic Metabolic [id number] 05:18:00 Test Item Value Reference Range Comments Sodium (test code = NA) 133 mmol/L 135-145 Potassium (test code = 4.9 mmol/L 3.5-5.1 K) Chloride (test code = 99 mmol/L 98-105 CL) Carbon Dioxide (test 25 mmol/L 22-29 code = CO2) Glucose (test code = 129 mg/dL 70-115 GLU) Blood Urea Nitrogen 15 mg/dL 6-20 (test code = BUN) Creatinine (test code = 1.2 mg/dL 0.7-1.2 CREAT) Calcium (test code = CA) 8.3 mg/dL 8.3-10.5 BUN/Creatinine Ratio 12.5 (test code = BCRATIO) Anion Gap (test code = 9 mmol/L 7-16 AGAP) Estimated GFR (test code >60 mL/min/1.73m2 eGFR (estimated Glomerular = GFR) Filtration Rate) is an estimated value, calculated from the patient 's serum creatinine using the MDRD equation.It is N OT the patient's actual GFR. The eGFR provides a more clinicallyuseful measure of kidney disease t chen serum creatinine alone .This calculation take s sex and race into accoun t, if the informationis pr ovided. If the race is not provided, and the patient isAfrican-Americ an, multiply by 1.21 2. If sex is not provided, and thepatient is fe male, multiply by 0.74 2. Results for patients <18 years ofage have not b een validated by the MDRD study and should be interpretedwith caution.eGFR Res ult Interpretation:e GFR > or = 60 is in the Nor mal RangeeGFR < 60 m ay mean kidney diseaseeG FR < 15 may mean kidney failureRanges recommended by jose alfredo serrato [employer] Foundation,http: //nkdep.nih .gov CBC with [id number] 04:59:00 Test Item Value Reference Range Comments WBC (test code = WBC) 11.3 K/cumm 4.4-10.5 RBC (test code = RBC) 3.93 M/cumm 4.10-5.70 Hemoglobin (test code = HGB) 9.6 gm/dL 13.4-17.4 Hematocrit (test code = HCT) 30.6 % 38.7-52.0 MCV (test code = MCV) 78.0 fL 80-100 MCH (test code = MCH) 24.4 pg 27.0-32.5 MCHC (test code = MCHC) 31.3 g/dL 32.0-37.5 RDW (test code = RDW) 15.7 % 11.5-14.5 Platelet Count (test code = PLTCT) 346 K/cumm 140-440 MPV (test code = MPV) 6.5 fL Diff Method (test code = DIFFM) Auto Neutrophil (test code = NEUT) 65.7 % 36-70 Lymphocyte (test code = LYMPH) 24.3 % 12-44 Monocyte (test code = MONO) 7.4 % 0-11 Eosinophil (test code = EOS) 2.3 % 0-7 Basophil (test code = BASO) 0.4 % 0-2 Neutro Abs (test code = ANEUT) 7.4 K/cumm 1.6-7.4 Lymph Abs (test code = ALYMPH) 2.7 K/cumm 0.5-4.6 Loup Abs (test code = AMONO) 0.8 K/cumm 0.0-1.2 Eos Abs (test code = AEOS) 0.26 K/cumm 0.00-0.74 Baso Abs (test code = ABASO) 0.0 K/cumm 0.00-0.21 POC Glucose, [id number] 20:59:00 Test Item Value Reference Range Comments POC Glucose (test code = 199 mg/dL 70-115 Notify RN or MDIf you consider POCGLUC) your patient cri tically ill, the [facility] Accu-C hek InformII metershould not be used for Glucose determin ations.Draw a venous Glucose a nd send to the Main Lab for Kaylan lysis. POC Glucose, [id number] 16:26:00 Test Item Value Reference Range Comments POC Glucose (test code = 170 mg/dL 70-115 Notify RN or MDIf you consider POCGLUC) your patient cri tically ill, the [facility] Accu-C hek InformII metershould not be used for Glucose determin ations.Draw a venous Glucose a nd send to the Main Lab for Kaylan lysis. POC Glucose, [id number] 11:41:00 Test Item Value Reference Range Comments POC Glucose (test code = 246 mg/dL 70-115 If you consider your patient POCGLUC) critically ill, the [facility] Accu-Chek Inform II metershould not be used for Glucose determinations.D raw a venous Glucose and send to the Main Lab for Analysis . Glycosylated [id number] 07:39:00 Test Item Value Reference Range Comments HBA1c (test code = HBA1C) 9.1 % 4.8-5.9 POC Glucose, [id number] 07:36:00 Test Item Value Reference Range Comments POC Glucose (test code = 206 mg/dL 70-115 If you consider your patient POCGLUC) critically ill, the [facility] Accu-Chek Inform II metershould not be used for Glucose determinations.D raw a venous Glucose and send to the Main Lab for Analysis . CBC with [id number] 06:09:00 Test Item Value Reference Range Comments WBC (test code = WBC) 15.4 K/cumm 4.4-10.5 RBC (test code = RBC) 4.26 M/cumm 4.10-5.70 Hemoglobin (test code = HGB) 10.1 gm/dL 13.4-17.4 Hematocrit (test code = HCT) 32.3 % 38.7-52.0 MCV (test code = MCV) 75.8 fL 80-100 MCH (test code = MCH) 23.6 pg 27.0-32.5 MCHC (test code = MCHC) 31.2 g/dL 32.0-37.5 RDW (test code = RDW) 15.4 % 11.5-14.5 Platelet Count (test code = PLTCT) 401 K/cumm 140-440 MPV (test code = MPV) 6.2 fL Diff Method (test code = DIFFM) Auto Neutrophil (test code = NEUT) 69.5 % 36-70 Lymphocyte (test code = LYMPH) 22.7 % 12-44 Monocyte (test code = MONO) 6.2 % 0-11 Eosinophil (test code = EOS) 1.2 % 0-7 Basophil (test code = BASO) 0.4 % 0-2 Neutro Abs (test code = ANEUT) 10.7 K/cumm 1.6-7.4 Lymph Abs (test code = ALYMPH) 3.5 K/cumm 0.5-4.6 Loup Abs (test code = AMONO) 1.0 K/cumm 0.0-1.2 Eos Abs (test code = AEOS) 0.19 K/cumm 0.00-0.74 Baso Abs (test code = ABASO) 0.1 K/cumm 0.00-0.21 Microcytosis (test code = MICRO) Slight Comprehensive Metabolic [id number] 06:00:00 Test Item Value Reference Range Comments Sodium (test code = NA) 126 mmol/L 135-145 Potassium (test code = 4.3 mmol/L 3.5-5.1 K) Chloride (test code = 90 mmol/L 98-105 CL) Carbon Dioxide (test 26 mmol/L 22-29 code = CO2) Glucose (test code = 191 mg/dL 70-115 GLU) Blood Urea Nitrogen 14 mg/dL 6-20 (test code = BUN) Creatinine (test code = 1.0 mg/dL 0.7-1.2 CREAT) Calcium (test code = CA) 8.4 mg/dL 8.3-10.5 Prot Total (test code = 6.4 g/dL 6.4-8.3 TP) Albumin (test code = 3.5 g/dL 3.5-5.2 ALB) A/G Ratio (test code = 1.2 Ratio AGRATIO) Globulin (test code = 2.9 2.9-3.1 GLOB) Bili Total (test code = 0.2 mg/dL 0.1-0.9 TBIL) Alk Phos (test code = 98 U/L 40-129 APHOS) AST (test code = AST) 25 U/L 1-40 ALT (test code = ALT) 12 U/L 1-41 BUN/Creatinine Ratio 14.0 (test code = BCRATIO) Anion Gap (test code = 10 mmol/L 7-16 AGAP) Estimated GFR (test code >60 mL/min/1.73m2 eGFR (estimated Glomerular = GFR) Filtration Rate) is an estimated value, calculated from the patient 's serum creatinine using the MDRD equation.It is N OT the patient's actual GFR. The eGFR provides a more clinicallyuseful measure of kidney disease t chen serum creatinine alone .This calculation take s sex and race into accoun t, if the informationis pr ovided. If the race is not provided, and the patient isAfrican-Americ an, multiply by 1.21 2. If sex is not provided, and thepatient is fe male, multiply by 0.74 2. Results for patients <18 years ofage have not b een validated by the MDRD study and should be interpretedwith caution.eGFR Res ult Interpretation:e GFR > or = 60 is in the Nor mal RangeeGFR < 60 m ay mean kidney diseaseeG FR < 15 may mean kidney failureRanges recommended by jose alfredo serrato [employer] Foundation,http: //nkdep.nih .gov Magnesium, [id number] 06:00:00 Test Item Value Reference Range Comments Magnesium (test code = MG) 2.2 mg/dL 1.7-2.5 [id number] 06:00:00 Test Item Value Reference Range Comments Phosphorus (test code = PO4) 2.8 mg/dL 2.70-4.50 POC Glucose, [id number] 20:44:00 Test Item Value Reference Range Comments POC Glucose (test code = 199 mg/dL 70-115 If you consider your patient POCGLUC) critically ill, the [facility] Accu-Chek Inform II metershould not be used for Glucose determinations.D raw a venous Glucose and send to the Main Lab for Analysis . POC Glucose, [id number] 16:28:00 Test Item Value Reference Range Comments POC Glucose (test code = 242 mg/dL 70-115 Notify RN or MDIf you consider POCGLUC) your patient cri tically ill, the [facility] Accu-C hek InformII metershould not be used for Glucose determin ations.Draw a venous Glucose a nd send to the Main Lab for Kaylan lysis. POC Glucose, [id number] 13:37:00 Test Item Value Reference Range Comments POC Glucose (test code = 131 mg/dL 70-115 If you consider your patient POCGLUC) critically ill, the [facility] Accu-Chek Inform II metershould not be used for Glucose determinations.D raw a venous Glucose and send to the Main Lab for Analysis . POC Glucose, [id number] 12:14:00 Test Item Value Reference Range Comments POC Glucose (test code = 100 mg/dL 70-115 If you consider your patient POCGLUC) critically ill, the [facility] Accu-Chek Inform II metershould not be used for Glucose determinations.D raw a venous Glucose and send to the Main Lab for Analysis . POC Glucose, [id number] 07:30:00 Test Item Value Reference Range Comments POC Glucose (test code = 123 mg/dL 70-115 If you consider your patient POCGLUC) critically ill, the [facility] Accu-Chek Inform II metershould not be used for Glucose determinations.D raw a venous Glucose and send to the Main Lab for Analysis . Basic Metabolic [id number] 06:05:00 Test Item Value Reference Range Comments Sodium (test code = NA) 138 mmol/L 135-145 Potassium (test code = 4.0 mmol/L 3.5-5.1 K) Chloride (test code = 98 mmol/L 98-105 CL) Carbon Dioxide (test 32 mmol/L 22-29 code = CO2) Glucose (test code = 128 mg/dL 70-115 GLU) Blood Urea Nitrogen 16 mg/dL 6-20 (test code = BUN) Creatinine (test code = 1.2 mg/dL 0.7-1.2 CREAT) Calcium (test code = CA) 9.4 mg/dL 8.3-10.5 BUN/Creatinine Ratio 13.3 (test code = BCRATIO) Anion Gap (test code = 8 mmol/L 7-16 AGAP) Estimated GFR (test code >60 mL/min/1.73m2 eGFR (estimated Glomerular = GFR) Filtration Rate) is an estimated value, calculated from the patient 's serum creatinine using the MDRD equation.It is N OT the patient's actual GFR. The eGFR provides a more clinicallyuseful measure of kidney disease t chen serum creatinine alone .This calculation take s sex and race into accoun t, if the informationis pr ovided. If the race is not provided, and the patient isAfrican-Americ an, multiply by 1.21 2. If sex is not provided, and thepatient is fe male, multiply by 0.74 2. Results for patients <18 years ofage have not b een validated by the MDRD study and should be interpretedwith caution.eGFR Res ult Interpretation:e GFR > or = 60 is in the Nor mal RangeeGFR < 60 m ay mean kidney diseaseeG FR < 15 may mean kidney failureRanges recommended by jose alfredo serrato [employer] Foundation,http: //nkdep.nih .gov CBC with [id number] 05:44:00 Test Item Value Reference Range Comments WBC (test code = WBC) 12.0 K/cumm 4.4-10.5 RBC (test code = RBC) 4.84 M/cumm 4.10-5.70 Hemoglobin (test code = HGB) 11.6 gm/dL 13.4-17.4 Hematocrit (test code = HCT) 37.5 % 38.7-52.0 MCV (test code = MCV) 77.4 fL 80-100 MCH (test code = MCH) 23.9 pg 27.0-32.5 MCHC (test code = MCHC) 30.9 g/dL 32.0-37.5 RDW (test code = RDW) 15.5 % 11.5-14.5 Platelet Count (test code = PLTCT) 443 K/cumm 140-440 MPV (test code = MPV) 6.2 fL Diff Method (test code = DIFFM) Auto Neutrophil (test code = NEUT) 49.5 % 36-70 Lymphocyte (test code = LYMPH) 39.8 % 12-44 Monocyte (test code = MONO) 6.9 % 0-11 Eosinophil (test code = EOS) 2.9 % 0-7 Basophil (test code = BASO) 0.9 % 0-2 Neutro Abs (test code = ANEUT) 5.9 K/cumm 1.6-7.4 Lymph Abs (test code = ALYMPH) 4.8 K/cumm 0.5-4.6 Loup Abs (test code = AMONO) 0.8 K/cumm 0.0-1.2 Eos Abs (test code = AEOS) 0.34 K/cumm 0.00-0.74 Baso Abs (test code = ABASO) 0.1 K/cumm 0.00-0.21 POC Glucose, [id number] 20:29:00 Test Item Value Reference Range Comments POC Glucose (test code = 152 mg/dL 70-115 If you consider your patient POCGLUC) critically ill, the [facility] Accu-Chek Inform II metershould not be used for Glucose determinations.D raw a venous Glucose and send to the Main Lab for Analysis . Antibody Screen - [id number] 17:58:00 Test Item Value Reference Range Comments Antibody Screen (test code = ABSCR) Negative Blood Type and [id number] 17:44:00 Test Item Value Reference Range Comments ABO type (test code = ABO) A Rh Type (test code = RH) Positive POC Glucose, [id number] 16:09:00 Test Item Value Reference Range Comments POC Glucose (test code = 192 mg/dL 70-115 If you consider your patient POCGLUC) critically ill, the [facility] Accu-Chek Inform II metershould not be used for Glucose determinations.D raw a venous Glucose and send to the Main Lab for Analysis . POC Glucose, [id number] 12:11:00 Test Item Value Reference Range Comments POC Glucose (test code = 249 mg/dL 70-115 If you consider your patient POCGLUC) critically ill, the [facility] Accu-Chek Inform II metershould not be used for Glucose determinations.D raw a venous Glucose and send to the Main Lab for Analysis . MRI LWR EXTRM NON-JNT WO [id number] 09:25:10LOCATION: [id number]: MRI LWR EXTRM NON-JNT WO CONTRST-LEFTINDICATION: LEFT FOOT DORSAL CALLOUSCOMPARISON: Left foot radiographs July 04, 2017.TECHNIQUE: Multiplanar, [...] concerning for injury.US DUPLX LWR EXT ART/BPG, [id number] 08:50:53US DUPLX LWR EXT ART/BPG, BILATCLINICAL HISTORY: non-healing woundsTechnique: Grayscale, color, and spectral sonography of the bilateral lower extremity arteries was performed.FINDINGS:Right leg (waveform / peak systolic velocity)STRUCTURAL MANAGER: Triphasic 95 cm/secProx SFA: Triphasic 92 cm/secMid SFA: Triphasic 81 cm/secDistal SFA: Triphasic 83 cm/secPopliteal: Triphasic 84 cm/secPTA: Monophasic 93 cm/secATA: Triphasic 32 cm/secDPA: Not imaged/bandaging Left leg (waveform / peak systolic velocity)STRUCTURAL MANAGER: Triphasic 88 cm/secProx SFA: Triphasic 93 cm/secMid SFA: Triphasic 82 cm/secDistal SFA: Triphasic 49 cm/secPopliteal: Triphasic 60 cm/secPTA: Triphasic 73 cm/secATA: Triphasic 93 cm/secDPA: Not imaged/bandaging IMPRESSION: 1. Limited exam. Thedorsalis pedis arteries are not imaged.2. Abnormal monophasic waveform in the right posterior tibial artery.3. Otherwise unremarkable exam.Location: R16 CBC with [id number] 08:22:00 Test Item Value Reference Range Comments WBC (test code = WBC) 10.0 K/cumm 4.4-10.5 RBC (test code = RBC) 5.36 M/cumm 4.10-5.70 Hemoglobin (test code = HGB) 12.8 gm/dL 13.4-17.4 Hematocrit (test code = HCT) 41.3 % 38.7-52.0 MCV (test code = MCV) 77.0 fL 80-100 MCH (test code = MCH) 23.9 pg 27.0-32.5 MCHC (test code = MCHC) 31.0 g/dL 32.0-37.5 RDW (test code = RDW) 14.5 % 11.5-14.5 Platelet Count (test code = PLTCT) 418 K/cumm 140-440 MPV (test code = MPV) 6.8 fL Diff Method (test code = DIFFM) Auto Neutrophil (test code = NEUT) 53.6 % 36-70 Lymphocyte (test code = LYMPH) 36.3 % 12-44 Monocyte (test code = MONO) 5.6 % 0-11 Eosinophil (test code = EOS) 3.7 % 0-7 Basophil (test code = BASO) 0.9 % 0-2 Neutro Abs (test code = ANEUT) 5.3 K/cumm 1.6-7.4 Lymph Abs (test code = ALYMPH) 3.6 K/cumm 0.5-4.6 Loup Abs (test code = AMONO) 0.6 K/cumm 0.0-1.2 Eos Abs (test code = AEOS) 0.37 K/cumm 0.00-0.74 Baso Abs (test code = ABASO) 0.1 K/cumm 0.00-0.21 Basic Metabolic [id number] 08:03:00 Test Item Value Reference Range Comments Sodium (test code = NA) 132 mmol/L 135-145 Potassium (test code = 4.3 mmol/L 3.5-5.1 K) Chloride (test code = 97 mmol/L 98-105 CL) Carbon Dioxide (test 27 mmol/L 22-29 code = CO2) Glucose (test code = 113 mg/dL 70-115 GLU) Blood Urea Nitrogen 14 mg/dL 6-20 (test code = BUN) Creatinine (test code = 1.1 mg/dL 0.7-1.2 CREAT) Calcium (test code = CA) 9.1 mg/dL 8.3-10.5 BUN/Creatinine Ratio 12.7 (test code = BCRATIO) Anion Gap (test code = 8 mmol/L 7-16 AGAP) Estimated GFR (test code >60 mL/min/1.73m2 eGFR (estimated Glomerular = GFR) Filtration Rate) is an estimated value, calculated from the patient 's serum creatinine using the MDRD equation.It is N OT the patient's actual GFR. The eGFR provides a more clinicallyuseful measure of kidney disease t chen serum creatinine alone .This calculation take s sex and race into accoun t, if the informationis pr ovided. If the race is not provided, and the patient isAfrican-Americ an, multiply by 1.21 2. If sex is not provided, and thepatient is fe male, multiply by 0.74 2. Results for patients <18 years ofage have not b een validated by the MDRD study and should be interpretedwith caution.eGFR Res ult Interpretation:e GFR > or = 60 is in the Nor mal RangeeGFR < 60 m ay mean kidney diseaseeG FR < 15 may mean kidney failureRanges recommended by jose alfredo serrato [employer] Foundation,http: //nkdep.nih .gov POC Glucose, [id number] 07:30:00 Test Item Value Reference Range Comments POC Glucose (test code = 110 mg/dL 70-115 If you consider your patient POCGLUC) critically ill, the [facility] Accu-Chek Inform II metershould not be used for Glucose determinations.D raw a venous Glucose and send to the Main Lab for Analysis . POC Glucose, [id number] 19:57:00 Test Item Value Reference Range Comments POC Glucose (test code = 124 mg/dL 70-115 If you consider your patient POCGLUC) critically ill, the [facility] Accu-Chek Inform II metershould not be used for Glucose determinations.D raw a venous Glucose and send to the Main Lab for Analysis . POC Glucose, [id number] 16:10:00 Test Item Value Reference Range Comments POC Glucose (test code = 114 mg/dL 70-115 Notify RN or MDIf you consider POCGLUC) your patient cri tically ill, the [facility] Accu-C hek InformII metershould not be used for Glucose determin ations.Draw a venous Glucose a nd send to the Main Lab for Kaylan lysis. POC Glucose, [id number] 11:18:00 Test Item Value Reference Range Comments POC Glucose (test code = 203 mg/dL 70-115 Notify RN or MDIf you consider POCGLUC) your patient cri tically ill, the [facility] Accu-C hek InformII metershould not be used for Glucose determin ations.Draw a venous Glucose a nd send to the Main Lab for Kaylan lysis. Culture, Wound [id number] 09:58:00Specimen: FootCollected: 07/03/2017 17:00 Status: Final Last Updated: 07/06/2017 09:58 (1) Right foot Ulcer Gram Stain (Final) (Final) No organsims seen, No WBC's seen Culture Result (Final) (Final) 07/06/17 Anaerobic culture:No anaerobes isolated at 3 days Isolate (Final) (Final) 07/05/17 Moderate Pseudomonas aeruginosa Amikacin <=16 Susceptible Cefepime >16 Resistant Ceftazidime >16 Resistant Ciprofloxacin >2 Resistant Gentamicin <=4 Susceptible Imipenem <=1 Susceptible Levofloxacin >4 Resistant Meropenem <=1 Susceptible Piperacillin/Tazo >64 Resistant Tobramycin <=4 Susceptible Isolate (Final) (Final) 07/05/17 Many Beta Hemolytic Streptococcus Beta Hemolytic Streptococcus Group GPOC Glucose, [id number] 07:23:00 Test Item Value Reference Range Comments POC Glucose (test code = 197 mg/dL 70-115 Notify RN or MDIf you consider POCGLUC) your patient cri tically ill, the [facility] Accu-C hek InformII metershould not be used for Glucose determin ations.Draw a venous Glucose a nd send to the Main Lab for Kaylan lysis. POC Glucose, [id number] 16:09:00 Test Item Value Reference Range Comments POC Glucose (test code = 194 mg/dL 70-115 If you consider your patient POCGLUC) critically ill, the [facility] Accu-Chek Inform II metershould not be used for Glucose determinations.D raw a venous Glucose and send to the Main Lab for Analysis . POC Glucose, [id number] 11:33:00 Test Item Value Reference Range Comments POC Glucose (test code = 193 mg/dL 70-115 If you consider your patient POCGLUC) critically ill, the [facility] Accu-Chek Inform II metershould not be used for Glucose determinations.D raw a venous Glucose and send to the Main Lab for Analysis . MRI LWR EXTRM NON-JNT WO [id number] 08:18:56EXAM: MRI right foot without contrastLocation: [id number]: History of amputation, rule out osteomy elitisCOMPARISON: Left foot radiographs performed the same dayTECHNIQUE: [...] stump.3. Post amputation changes as described.POC Glucose, Blood 2017-07-05 07:15:00 Test Item Value Reference Range Comments POC Glucose (test code = 140 mg/dL 70-115 If you consider your patient POCGLUC) critically ill, the [facility] Accu-Chek Inform II metershould not be used for Glucose determinations.D raw a venous Glucose and send to the Main Lab for Analysis . Sed Rate ESR ([place])2017-07-05 06:40:00 Test Item Value Reference Range Comments ESR (test code = HESR) 54 mm/Hr 0-9 C-Reactive Protein, [id number] 05:41:00 Test Item Value Reference Range Comments CRP (test code = CRP) 34.7 mg/L 0.0-5.0 POC Glucose, [id number] 21:22:00 Test Item Value Reference Range Comments POC Glucose (test code = 141 mg/dL 70-115 If you consider your patient POCGLUC) critically ill, the [facility] Accu-Chek Inform II metershould not be used for Glucose determinations.D raw a venous Glucose and send to the Main Lab for Analysis . POC Glucose, [id number] 16:09:00 Test Item Value Reference Range Comments POC Glucose (test code = 156 mg/dL 70-115 If you consider your patient POCGLUC) critically ill, the [facility] Accu-Chek Inform II metershould not be used for Glucose determinations.D raw a venous Glucose and send to the Main Lab for Analysis . POC Glucose, [id number] 12:05:00 Test Item Value Reference Range Comments POC Glucose (test code = 170 mg/dL 70-115 If you consider your patient POCGLUC) critically ill, the [facility] Accu-Chek Inform II metershould not be used for Glucose determinations.D raw a venous Glucose and send to the Main Lab for Analysis . XR FOOT [id number] 08:56:55XR FOOT 2V-LEFTLOCATION: [id number]:left foot ulcer COMPARISON: None.DISCUSSION:Frontal and lateral radiographs of the left foot were obtained. Amputation of the fifth ray at the mid metatarsal is noted; a few smallcorticated osseous fragments at the application stump are nonspecific. Otherwise,no definite suspicious focal osseous destruction, periostealreaction, acute fracture, or dislocationis seen.IMPRESSION:1. Amputation of the fifth ray at the mid metatarsal. Few nonspecificsmall cortic ated osseous fragments at the amputation stump.2. No definite acute osseous abnormalities.XR FOOT [id number] 08:53:30XR FOOT 2V-RIGHTLOCATION: [id number]:right foot stump ulcer COMPARISON: None.DISCUSSION:Frontal and lateral radiographs of the right foot were obtained. Amputation changes at the proximal metatarsals are noted.No definite suspicious focal osseous destruction or periosteal reactionis seen.Otherwise, no acute fracture or dislocation is seen.The joint spaces are grossly preserved.IMPRESSION:1. 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 No definite acute osseous abnormalities.POC Glucose, [id number] 07:50:00 Test Item Value Reference Range Comments POC Glucose (test code = 139 mg/dL 70-115 If you consider your patient POCGLUC) critically ill, the [facility] Accu-Chek Inform II metershould not be used for Glucose determinations.D raw a venous Glucose and send to the Main Lab for Analysis . CBC with [id number] 06:19:00 Test Item Value Reference Range Comments WBC (test code = WBC) 8.0 K/cumm 4.4-10.5 RBC (test code = RBC) 4.28 M/cumm 4.10-5.70 Hemoglobin (test code = HGB) 10.5 gm/dL 13.4-17.4 Hematocrit (test code = HCT) 32.8 % 38.7-52.0 MCV (test code = MCV) 76.7 fL 80-100 MCH (test code = MCH) 24.5 pg 27.0-32.5 MCHC (test code = MCHC) 32.0 g/dL 32.0-37.5 RDW (test code = RDW) 14.8 % 11.5-14.5 Platelet Count (test code = PLTCT) 392 K/cumm 140-440 MPV (test code = MPV) 6.7 fL Diff Method (test code = DIFFM) Auto Neutrophil (test code = NEUT) 53.8 % 36-70 Lymphocyte (test code = LYMPH) 34.0 % 12-44 Monocyte (test code = MONO) 7.4 % 0-11 Eosinophil (test code = EOS) 4.0 % 0-7 Basophil (test code = BASO) 0.7 % 0-2 Neutro Abs (test code = ANEUT) 4.3 K/cumm 1.6-7.4 Lymph Abs (test code = ALYMPH) 2.7 K/cumm 0.5-4.6 Loup Abs (test code = AMONO) 0.6 K/cumm 0.0-1.2 Eos Abs (test code = AEOS) 0.32 K/cumm 0.00-0.74 Baso Abs (test code = ABASO) 0.1 K/cumm 0.00-0.21 Lipid [id number] 06:15:00 Test Item Value Reference Range Comments Cholesterol (test code = 133 mg/dL 0-200 CHOL) Triglycerides (test code = 164 mg/dL 9-200 TRIG) HDL (test code = HDL) 31 mg/dL 40-60 Chol/HDL (test code = 4.3 Ratio 0.0-5.0 CHOLPHDL) LDL, Calculated (test code 69 0-130 (NOTE )RISK OF HEART = LDLC) DISEASEPublished by [facility] [facility] Associatio nAnalyte Optimal Boderline Increased RiskCHOL <200 20 0-239 >240TRIG <150 150-199 >200HDL Male: >60 <40HDL Female: &g t;60 <50LDL <100 130-159 >1 60LDL NEAR O PTIMAL IS 100-129 VLDL (test code = VLDL) 33 mg/dL 5-40 LDL/HDL (test code = 2 LDLPHDL) POC Glucose, [id number] 17:14:00 Test Item Value Reference Range Comments POC Glucose (test code = 129 mg/dL 70-115 If you consider your patient POCGLUC) critically ill, the [facility] Accu-Chek Inform II metershould not be used for Glucose determinations.D raw a venous Glucose and send to the Main Lab for Analysis . RPR, [id number] 12:26:00 Test Item Value Reference Range Comments RPR (test code = RPR) Non-Reactive Non-Reactive POC Glucose, [id number] 12:05:00 Test Item Value Reference Range Comments POC Glucose (test code = 173 mg/dL 70-115 If you consider your patient POCGLUC) critically ill, the [place] Accu-Chek Inform II metershould not be used for Glucose determinations.D raw a venous Glucose and send to the Main Lab for Analysis . POC Glucose, [id number] 07:57:00 Test Item Value Reference Range Comments POC Glucose (test code = 144 mg/dL 70-115 If you consider your patient POCGLUC) critically ill, the [place] Accu-Chek Inform II metershould not be used for Glucose determinations.D raw a venous Glucose and send to the Main Lab for Analysis . POC Glucose, [id number] 06:19:00 Test Item Value Reference Range Comments POC Glucose (test code = 151 mg/dL 70-115 Notify RN or MDIf you consider POCGLUC) your patient cri tically ill, the [facility] Accu-C hek InformII metershould not be used for Glucose determin ations.Draw a venous Glucose a nd send to the Main Lab for Kaylan lysis. Thyroid Stimulating Hormone (TSH)2017-07-02 23:58:00 Test Item Value Reference Range Comments TSH (test code = TSH) 2.08 mIU/mL 0.270-4.200 Lipid [id number] 23:52:00 Test Item Value Reference Range Comments Cholesterol (test code = 171 mg/dL 0-200 CHOL) Triglycerides (test code = 171 mg/dL 9-200 TRIG) HDL (test code = HDL) 37 mg/dL 40-60 Chol/HDL (test code = 4.6 Ratio 0.0-5.0 CHOLPHDL) LDL, Calculated (test code 100 0-130 (NOTE )RISK OF HEART = LDLC) DISEASEPublished by [facility] Associ[facility] nAnalyte Optimal Boderline Increased RiskCHOL <200 20 0-239 >240TRIG <150 150-199 >200HDL Male: >60 <40HDL Female: &g t;60 <50LDL <100 130-159 >1 60LDL NEAR O PTIMAL IS 100-129 VLDL (test code = VLDL) 34 mg/dL 5-40 LDL/HDL (test code = 3 LDLPHDL) POC Glucose, [id number] 20:03:00 Test Item Value Reference Range Comments POC Glucose (test code = 221 mg/dL 70-115 If you consider your patient POCGLUC) critically ill, the [place] Accu-Chek Inform II metershould not be used for Glucose determinations.D raw a venous Glucose and send to the Main Lab for Analysis . POC Glucose, [id number] 16:47:00 Test Item Value Reference Range Comments POC Glucose (test code = 304 mg/dL 70-115 If you consider your patient POCGLUC) critically ill, the [place] Accu-Chek Inform II metershould not be used for Glucose determinations.D raw a venous Glucose and send to the Main Lab for Analysis . POC Glucose, [id number] 15:20:00 Test Item Value Reference Range Comments POC Glucose (test code = 368 mg/dL 70-115 If you consider your patient POCGLUC) critically ill, the [place] Accu-Chek Inform II metershould not be used for Glucose determinations.D raw a venous Glucose and send to the Main Lab for Analysis . [id number] 08:27:00 Test Item Value Reference Range Comments Amphetamine (test code = Negative Negative For padmini gnostic purposes only, AMPH) positive results should always be assess twan conjunctionwith the patient's medical history, clinical examination and otherfindings.To fulfill legal requiremen ts, a more specific alterna te chemical methodmust be us ed inorder to obtain a Confirm ed analytical result. GC/MS is the preferred confir matory method. Barbiturates (test code = Negative Negative MARYLIN) Benzodiazepine (test code = Negative Negative DEVON) Cocaine (test code = COCA) Negative Negative Methadone (test code = MTHD) Negative Negative Opiates (test code = OPIA) Negative Negative PCP (test code = PCP) Negative Negative Propoxyphene (test code = Negative Negative PROPOX) THC (test code = THC) Negative Negative Alcohol, Urine (test code = <0.01 g/dL 0.00-0.01 ETOHU) Urinalysis [id number] 07:59:00 Test Item Value Reference Range Comments Color (test code = COLOR) Yellow Yellow,Straw,Pl yellow Clarity (test code = CLAR) Clear Clear Specific [place] (test code = SPGR) 1.026 1.001-1.035 pH (test code = PH) 6.0 5.0-9.0 Ketone (test code = KET) Negative mg/dL Negative Glucose (test code = GLUCUR) 1000 mg/dL Negative Protein (test code = PROT) 25 mg/dL Negative Bilirubin (test code = BILI) Negative mg/dL Negative Occult Blood (test code = UDOB) Moderate Negative Urobilinogen (test code = UROB) 0.2 mg/dL 0.2-1.0 Nitrite (test code = NIT) Negative Negative Leuk Esterase (test code = LEUK) Negative Negative Micros Exam (test code = MEXAM) Indicated Epithelial Cells (test code = EPI) 6-9 /LPF 0-30 WBC, Urine (test code = UWBC) 3-5 /HPF 0-5 RBC, Urine (test code = URBC) 0-3 /HPF 0-5 Bacteria (test code = BACT) Few /HPF POC Glucose, [id number] 07:23:00 Test Item Value Reference Range Comments POC Glucose (test code = 174 mg/dL 70-115 If you consider your patient POCGLUC) critically ill, the [facility] Accu-Chek Inform II metershould not be used for Glucose determinations.D raw a venous Glucose and send to the Main Lab for Analysis . [id number] 06:52:00 Test Item Value Reference Range Comments Acetone [Serum] (test code = ACETONE) Negative Negative Comprehensive Metabolic [id number] 06:19:00 Test Item Value Reference Range Comments Sodium (test code = NA) 134 mmol/L 135-145 Potassium (test code = 3.9 mmol/L 3.5-5.1 K) Chloride (test code = 96 mmol/L 98-105 CL) Carbon Dioxide (test 26 mmol/L 22-29 code = CO2) Glucose (test code = 362 mg/dL 70-115 GLU) Blood Urea Nitrogen 20 mg/dL 6-20 (test code = BUN) Creatinine (test code = 1.1 mg/dL 0.7-1.2 CREAT) Calcium (test code = CA) 9.2 mg/dL 8.3-10.5 Prot Total (test code = 7.6 g/dL 6.4-8.3 TP) Albumin (test code = 4.0 g/dL 3.5-5.2 ALB) A/G Ratio (test code = 1.1 Ratio AGRATIO) Globulin (test code = 3.6 2.9-3.1 GLOB) Bili Total (test code = 0.2 mg/dL 0.1-0.9 TBIL) Alk Phos (test code = 141 U/L 40-129 APHOS) AST (test code = AST) 8 U/L 1-40 ALT (test code = ALT) 9 U/L 1-41 BUN/Creatinine Ratio 18.2 (test code = BCRATIO) Anion Gap (test code = 12 mmol/L 7-16 AGAP) Estimated GFR (test code >60 mL/min/1.73m2 eGFR (estimated Glomerular = GFR) Filtration Rate) is an estimated value, calculated from the patient 's serum creatinine using the MDRD equation.It is N OT the patient's actual GFR. The eGFR provides a more clinicallyuseful measure of kidney disease t chen serum creatinine alone .This calculation take s sex and race into accoun t, if the informationis pr ovided. If the race is not provided, and the patient isAfrican-Americ an, multiply by 1.21 2. If sex is not provided, and thepatient is fe male, multiply by 0.74 2. Results for patients <18 years ofage have not b een validated by the MDRD study and should be interpretedwith caution.eGFR Res ult Interpretation:e GFR > or = 60 is in the Nor mal RangeeGFR < 60 m ay mean kidney diseaseeG FR < 15 may mean kidney failureRanges recommended by jose alfredo serrato National Kid[employer] Foundation,http: //nkdep.nih .gov CBC with [id number] 06:00:00 Test Item Value Reference Range Comments WBC (test code = WBC) 15.8 K/cumm 4.4-10.5 RBC (test code = RBC) 4.83 M/cumm 4.10-5.70 Hemoglobin (test code = HGB) 11.9 gm/dL 13.4-17.4 Hematocrit (test code = HCT) 37.5 % 38.7-52.0 MCV (test code = MCV) 77.7 fL 80-100 MCH (test code = MCH) 24.6 pg 27.0-32.5 MCHC (test code = MCHC) 31.6 g/dL 32.0-37.5 RDW (test code = RDW) 14.9 % 11.5-14.5 Platelet Count (test code = PLTCT) 418 K/cumm 140-440 MPV (test code = MPV) 7.2 fL Diff Method (test code = DIFFM) Auto Neutrophil (test code = NEUT) 72.8 % 36-70 Lymphocyte (test code = LYMPH) 19.5 % 12-44 Monocyte (test code = MONO) 5.5 % 0-11 Eosinophil (test code = EOS) 1.8 % 0-7 Basophil (test code = BASO) 0.4 % 0-2 Neutro Abs (test code = ANEUT) 11.5 K/cumm 1.6-7.4 Lymph Abs (test code = ALYMPH) 3.1 K/cumm 0.5-4.6 Loup Abs (test code = AMONO) 0.9 K/cumm 0.0-1.2 Eos Abs (test code = AEOS) 0.29 K/cumm 0.00-0.74 Baso Abs (test code = ABASO) 0.1 K/cumm 0.00-0.21 POC Glucose, [id number] 05:52:00 Test Item Value Reference Range Comments POC Glucose (test code = 342 mg/dL 70-115 If you consider your patient POCGLUC) critically ill, the [place] Accu-Chek Inform II metershould not be used for Glucose determinations.D raw a venous Glucose and send to the Main Lab for Analysis .
[2020-01-11 13:38] LABS: Absolute Lymphocytes (CBC) 0.4 K/uL (0.7-4.9); Basophils % 0.5 % (0-1.3); Hematocrit 35.1 % (39.6-49.0); Lymphocytes % 2.9 % (15.3-44.8); MPV 8.1 fL (7.6-11.3)
[2020-01-11] MEDS ORDERED: LIDOCAINE 1% MPF 30 ML VIAL ONE (13:50)
[2020-01-11] MEDS ORDERED: NA CHLORIDE 0.9% 1,000 ML ONE ×3 (13:50→15:50)
[2020-01-11] MEDS ORDERED: ACETAMINOPHEN 500 MG TAB ONE ×2 (13:50→18:53)
[2020-01-11 13:59] LABS: BUN Blood Urea Nitrogen 14 mg/dL (7-18); Bicarbonate 19 mmol/L (21-32); Potassium 3.1 mmol/L (3.5-5.1); Sodium Level 124 mmol/L (136-145)
[2020-01-11 14:02] LABS: Blood Morphology Comment NOT SEEN (NOT SEEN); Platelet Estimate ADEQ; Urine White Blood Cell Casts OK
--- NOTE | 2020-01-11 14:05 | RAD REPORT ---
EXAM DESCRIPTION: Young Single View01/11/2020 2:00 pm CLINICAL HISTORY: Fever COMPARISON: 2018 FINDINGS: The lungs appear clear of acute infiltrate. The heart is normal size IMPRESSION: No acute abnormalities displayed
[2020-01-11 14:06] LABS: Glucose Level 583 mg/dL (74-106)
--- NOTE | 2020-01-11 14:06 | RAD REPORT ---
EXAM DESCRIPTION: RAD - Shoulder Left 2 View - 01/11/2020 2:00 pm CLINICAL HISTORY: Left shoulder pain FINDINGS: No fracture or dislocation is seen. Moderate osteoarthritis AC joint consisting of osteophytes and joint space narrowing
[2020-01-11] MEDS ORDERED: MORPHINE 4 MG/ML SYR ONE (14:18)
[2020-01-11] MEDS ORDERED: ONDANSETRON 4 MG/2 ML VIAL ONE (14:18)
[2020-01-11] MEDS ORDERED: INSULIN -REGULAR HUMAN 50 UNIT/0.5 ML ML ONE (14:19)
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
[2020-01-11] MEDS ORDERED: GLUCAGON 1 MG/VIAL IM PRN ×3 (15:00→18:05)
[2020-01-11] MEDS ORDERED: D50W 25 GM/50 ML SYRINGE/VIAL IV PRN ×3 (15:00→18:05)
[2020-01-11] MEDS ORDERED: CLINDAMYCIN 600MG/D5W 600 MG/50 ML BAG IV ONE (15:02)
[2020-01-11] MEDS ORDERED: INSULIN -REGULAR HUMAN 100 UNIT in NA CHLORIDE 0.9% 100 ML IV SCH (16:00)
[2020-01-11 16:13] LABS: Urine Bacteria <20 /HPF (NONE SEEN); Urine RBC <5 /HPF (NONE SEEN)
[2020-01-11 16:14] LABS: Urine Culture Reflex Order NOT NEEDED
[2020-01-11] MEDS ORDERED: ONDANSETRON 4 MG/2 ML VIAL IV PRN (17:11)
[2020-01-11] MEDS: PIPER/TAZO/NS 3.375gm 3.375 GM/100 ML BAG IVPB SCH (17:30)
[2020-01-11 17:51] LABS: Arterial Blood Carboxyhemoglob 1.8 % (0-1.5); Blood Gas Oxyhemoglobin 90.2 % (94-97)
[2020-01-11] MEDS: NS KCL 40MEQ 40 MEQ/1,000 ML BAG IV SCH (18:00)
--- NOTE | 2020-01-11 18:15 | P.HP ---
Certification for Inpatient Patient admitted to: Observation With expected LOS: <2 Midnights Practitioner: I am a practitioner with admitting privileges, knowledge of patient current condition, hospital course, and medical plan of care. Services: Services provided to patient in accordance with Admission requirements found in Title 42 Section 412.3 of the Code of Federal Regulations Patient History Date of Service: 01/11/20 Reason for admission: Right buttock pain and swelling, weakness History of Present Illness: 34-year-old male with past medical history of insulin-dependent diabetes mellitus since 12 years, hypertension, PVD status post right BKA since last 3 years, on daily insulin therapy with insulin 70 30 50 units in a.m. and 35 units in p.m., history of depression, patient admit to self stopping insulin show since the last 2 weeks due to his depression. He denies any suicide ideation. He presented today because of noted pain and swelling in his right Botox. He admits to fever, with chills, he admit to decreased p.o. intake, polyuria but denies any dysuria or vomiting. In the ER he was noted with buttock abscess and had an aspiration with incision and drainage done. Culture were sent. Patient was also noted to be hypotensive with mild glucose of greater than 600 and small acetones. His sodium was low at 124 with low bicarb of 19. ABG was not done. He was started on IV fluid and given intravenous insulin. . Patient still feels weak and drowsy. His complain of marked left shoulder pain. X-ray shows evidence of significant osteoarthritis Allergies clindamycin Adverse Reaction (Verified 02/08/19 07:26) Nausea/Vomiting meperidine [From Demerol] Adverse Reaction (Verified 02/08/19 07:26) Nausea/Vomiting vancomycin Adverse Reaction (Verified 02/08/19 07:26) Nausea/Vomiting Home Medications: Ciprofloxacin HCl [Cipro 500 MG Tablet] 500 mg PO BID 06/10/19 Duloxetine HCl [Cymbalta] 30 mg PO DAILY 06/10/19 Duloxetine HCl [Cymbalta] 60 mg PO BEDTIME 06/10/19 Fluconazole 200 mg PO DAILY 06/10/19 Gabapentin [Neurontin] 800 mg PO TID 06/10/19 Insulin 70/30 NPH/Reg Human [Novolin 70/30*] 30 unit SQ BEDTIME 06/10/19 Insulin 70/30 NPH/Reg Human [Novolin 70/30*] 50 unit SQ DAILY 06/10/19 Minocycline HCl 100 mg PO BID 06/10/19 Mirtazapine [Remeron*] 15 mg PO BEDTIME 06/10/19 Diltiazem Tab [Cardizem Tab*] 60 mg PO Q6HR #30 tab 06/12/19 Tramadol HCl [Ultram] 50 mg PO Q6H PRN #15 tablet 06/12/19 - Past Medical/Surgical History Diabetic: No -: Bipolar disorder -: Diabetes mellitus type 2 -: Schizoaffective disorder -: neuropathy -: osteomyelitis -: chronic pain -: Diabetic neuropathy -: Right BKA -: Left 5th toe amputation Psychosocial/ Personal History: The patient is single. He has no children. The patient is disabled. - Family History Mother -: Hypertension, Diabetes Father -: Diabetes Brother -: Hypertension, Diabetes - Social History Alcohol use: No CD- Drugs: Yes Caffeine use: Yes Review of Systems 10-point ROS is otherwise unremarkable (All others negative except as noted in HPI) Physical Examination - Vital Signs Temperature: 103 F Blood Pressure: 98/46 Pulse: 129 Respirations: 23 - Physical Exam General: Alert, Oriented x3, Obese, Other (Drowsy but easily arousable, conversant) HEENT: Atraumatic, Normocephalic, PERRLA Neck: Supple, 2+ carotid pulse no bruit, JVD not distended Respiratory: Clear to auscultation bilaterally, Normal air movement Cardiovascular: No edema, Normal pulses, Regular rate/rhythm, Normal S1 S2, Other (Tachycardic) Capillary refill: <2 Seconds Gastrointestinal: Normal bowel sounds, Soft and benign, Non-distended Musculoskeletal: Other (Dressing over right Buttock with tenderness around area, exam limited by pain with patient rolling from side to side) Integumentary: Skin lesion, Erythema, Other (right BKA) Neurological: Normal speech, Normal tone - Studies Laboratory Data (last 24 hrs) 01/11/20 13:40: Glucose 562 H* 01/11/20 13:25: WBC 13.8 H, Hgb 11.1 L, Hct 35.1 L, Plt Count 233 01/11/20 13:25: Sodium 124 L, Potassium 3.1 L, BUN 14, Creatinine 1.67 H, Glucose 583 H* Microbiology Data (last 24 hrs): 01/11/20 13:41 Nasopharnyx Influenza Type A Antigen Screen - Final 01/11/20 13:41 Nasopharnyx Influenza Type B Antigen Screen - Final 01/11/20 13:41 Throat Group A Streptococcus Rapid Screen - Final Imagings Data: . CXR -FINDINGS: The lungs appear clear of acute infiltrate. The heart is normal size IMPRESSION: No acute abnormalities displayed Left shoulder [id number] osteoarthritis with joint space narrowing Assessment and Plan - Problems (Diagnosis) (1) Cellulitis of buttock, right Current Visit: Yes Status: Acute (2) Cellulitis Current Visit: No Status: Acute Qualifiers: Site of cellulitis: extremity Site of cellulitis of extremity: lower ex tremity Laterality: left Qualified Code(s): L03.116 - Cellulitis of left lower limb (3) Bipolar 1 disorder Onset Date: 09/27/16 Current Visit: No Status: Chronic (4) Complete below knee amputation of right lower extremity Onset Date: 07/24/17 Current Visit: No Status: Chronic (5) Diabetes mellitus Onset Date: 09/27/16 Current Visit: No Status: Chronic Qualifiers: Diabetes mellitus type: type 2 Diabetes mellitus nursing home insulin use: with nursing home use Diabetes mellitus complication status: with skin complications Diabetes mellitus complication detail: with foot ulcer Qualified Code(s): E11.621 - Type 2 diabetes mellitus with foot ulcer; L97.509 - Non-pressure chronic ulcer of other part of unspecified foot with unspecified severity; 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 -we do Tylenol p.r.n. fever -start gentle IV fluid Diabetes mellitus with mild DKA E-due to medication nonadherence -mild increased anion gap noted, status post IV insulin, follow repeat BMP -would not initiate insulin drip for now but will monitor closely -continue Accu-Cheks with fingersticks monitoring -will restart patient insulin 70/30 but increase dose to 50 units b.i.d. for now Depression-worrisome for suicide ideation although patient denies but given self hold off insulin -will consider consulting psych for further evaluation Hypertension-borderline low blood pressure now, follow with IV fluids -hold Cardizem Hypokalemia- will replete Hyponatremia-due to pseudohyponatremia, follow with correction of glucose -follow with normal saline bolus -we have right nephrology on board Acute renal failure-may be component of CKD given PVD -follow creatinine trend with IV fluid DVT prophylaxis-subcutaneous Lovenox Disposition possible hospital stay for less than 48 hr Time Spent Managing Pts Care (In Minutes): 75
[2020-01-11] MEDS ORDERED: PIPER/TAZO/NS 3.375gm 3.375 GM/100 ML BAG ONE (18:38)
[2020-01-11] MEDS: ACETAMINOPHEN 500 MG TAB PO PRN (18:49)
[2020-01-11 20:49] LABS: Urine Blood 2+ (NEG); Urine Glucose 3+ (NEG); Urine Protein 3+ (NEG); Urine Specific Gravity 1.015 (1.005-1.030)
[2020-01-11] MEDS ORDERED: INSULIN GLARGINE 100 UNITS/ML SQ SCH (21:00)
[2020-01-11] MEDS: MIRTAZAPINE 15 MG TAB PO SCH ×2 (21:00→21:16)
[2020-01-11] MEDS: NICOTINE 21 MG/PAT TD SCH (21:16)
[2020-01-11] MEDS: ENOXAPARIN 40 MG/0.4 ML SQ SCH (21:16)
[2020-01-11] MEDS: INSULIN 70/30 100 UNITS/ML SQ SCH (21:16)
[2020-01-11] MEDS: INSULIN -REGULAR HUMAN 50 UNIT/0.5 ML ML SQ SCH (21:17)
[2020-01-11 22:27] LABS: Potassium 3.2 mmol/L (3.5-5.1)
[2020-01-12] MEDS: PIPER/TAZO/NS 3.375gm 3.375 GM/100 ML BAG IVPB SCH ×3 (00:06→16:19)
[2020-01-12] MEDS ORDERED: PIPERACIL/TAZO 3.375 GM VIAL IV ONE (00:12)
[2020-01-12] MEDS ORDERED: NA CHLORIDE 0.9% 100 ML ONE (00:12)
[2020-01-12] MEDS: ACETAMINOPHEN 500 MG TAB PO PRN (00:12)
[2020-01-12] MEDS: MORPHINE 2 MG/ML SYR IV PRN ×2 (01:35→06:48)
[2020-01-12] MEDS: ONDANSETRON 4 MG/2 ML VIAL IV PRN ×2 (01:35→06:48)
[2020-01-12 05:49] LABS: Albumin 1.7 g/dL (3.4-5.0); Bilirubin Total 0.4 mg/dL (0.2-1.0); Potassium 3.9 mmol/L (3.5-5.1); Protein, Total 5.7 g/dL (6.4-8.2)
[2020-01-12 06:09] LABS: Absolute Lymphocytes (CBC) 1.1 K/uL (0.7-4.9); Basophils % 0.5 % (0-1.3); Lymphocytes % 9.2 % (15.3-44.8); MPV 7.9 fL (7.6-11.3); RBC Red Blood Cell Count 4.06 M/uL (4.33-5.43)
[2020-01-12] MEDS: NS KCL 40MEQ 40 MEQ/1,000 ML BAG IV SCH ×3 (06:18→16:18)
[2020-01-12 08:06] LABS: Blood Morphology Comment NOT SEEN (NOT SEEN); Platelet Estimate ADEQ; Urine White Blood Cell Casts OK
[2020-01-12] MEDS: NICOTINE 21 MG/PAT TD SCH ×2 (09:00→21:28)
[2020-01-12] MEDS ORDERED: LIDOCAINE 4% PATCH TOP SCH (09:00)
[2020-01-12] MEDS: INSULIN -REGULAR HUMAN 50 UNIT/0.5 ML ML SQ SCH ×4 (09:04→21:00)
[2020-01-12] MEDS: ENOXAPARIN 40 MG/0.4 ML SQ SCH (09:04)
[2020-01-12] MEDS: INSULIN 70/30 100 UNITS/ML SQ SCH ×2 (09:04→16:16)
[2020-01-12] MEDS ORDERED: ACETAMINOPHEN 325 MG TABLET PO PRN (09:40)
[2020-01-12] MEDS: IBUPROFEN 400 MG TAB PO PRN (09:55)
[2020-01-12] MEDS: HYDROMORPHONE HCL 2 MG/ML inj IV PRN ×4 (09:56→21:42)
[2020-01-12] MEDS ORDERED: VANCOMYCIN 1 GM in NA CHLORIDE 0.9% 250 ML IVPB SCH (10:00)
[2020-01-12] MEDS: DAPTOMYCIN IVPB SCH (11:20)
[2020-01-12] MEDS: NA CHLORIDE 0.9% IVPB SCH (11:20)
--- NOTE | 2020-01-12 11:32 | P.PN ---
Subjective Date of Service: 01/12/20 Chief Complaint: Right buttock pain and swelling, weakness Subjective: New changes (Complain of severe chills with Dr. goodson, -Sstates pain over the left shoulder although slightly improved with lidocaine patch), C/O voiced (Complain of severe rigors and chills this morning -temp taken now at 103 State the pain over the left shoulder although slightly improved with lidocaine) Physical Examination - Vital Signs Temperature: 103.7 F Blood Pressure: 112/78 Pulse: 113 Respirations: 20 Pulse Ox (%): 99 - Physical Exam General: In no apparent distress, Oriented x3, Other (Having significant chills) HEENT: Atraumatic, Normocephalic, PERRLA Neck: Supple, 2+ carotid pulse no bruit Respiratory: Clear to auscultation bilaterally, Normal air movement Cardiovascular: Normal pulses, Regular rate/rhythm, Normal S1 S2 Gastrointestinal: Normal bowel sounds, Soft and benign, Non-distended Musculoskeletal: Erythema (Small abrasion over the right knee stump, status post right BKA), Tenderness (Left shoulder, limited range of motion), Other (Dressing over the right buttock) Neurological: Normal speech, Normal strength at 5/5 x4 extr - Studies Laboratory Data (last 24 hrs) 01/12/20 05:56: WBC 11.8 H D, Hgb 9.8 L, Hct 30.0 L, Plt Count 177 D 01/12/20 05:12: Sodium 134 L, Potassium 3.9, BUN 13, Creatinine 1.34 H, Glucose 204 H, Total Bilirubin 0.4, AST 20, ALT 13, Alkaline Phosphatase 99 01/11/20 21:56: Sodium 130 L, Potassium 3.2 L, BUN 13, Creatinine 1.35 H, Glucose 336 H 01/11/20 13:40: Glucose 562 H* 01/11/20 13:25: WBC 13.8 H, Hgb 11.1 L, Hct 35.1 L, Plt Count 233 01/11/20 13:25: Sodium 124 L, Potassium 3.1 L, BUN 14, Creatinine 1.67 H, Glucose 583 H* Microbiology Data (last 24 hrs): Wound culture with beta-hemolytic strep. Blood [id number] cocci in chains 01/11/20 13:41 Nasopharnyx Influenza Type A Antigen Screen - Final 01/11/20 13:41 Nasopharnyx Influenza Type B Antigen Screen - Final 01/11/20 13:41 Throat Group A Streptococcus Rapid Screen - Final Assessment And Plan - Current Problems (Diagnosis) (1) Cellulitis of buttock, right Current Visit: Yes Status: Acute (2) Cellulitis Current Visit: No Status: Acute Qualifiers: Site of cellulitis: extremity Site of cellulitis of extremity: lower extremity Laterality: left Qualified Code(s): L03.116 - Cellulitis of left lower limb (3) Bipolar 1 disorder Onset Date: 09/27/16 Current Visit: No Status: Chronic (4) Complete below knee amputation of right lower extremity Onset Date: 07/24/17 Current Visit: No Status: Chronic (5) Diabetes mellitus Onset Date: 09/27/16 Current Visit: No Status: Chronic Qualifiers: Diabetes mellitus type: type 2 Diabetes mellitus jail insulin use: with terminal clerk use Diabetes mellitus complication status: with skin complications Diabetes mellitus complication detail: with foot ulcer Qualified Code(s): E11.621 - Type 2 diabetes mellitus with foot ulcer; L97.509 - Non-pressure chronic ulcer of other part of unspecified foot with unspecified severity; Z79.4 - USP (current) use of insulin (6) Nicotine dependence Onset Date: 12/02/17 Current Visit: No Status: Chronic Qualifiers: Nicotine product type: cigarettes Physician Review: Patient Assessed, Agree with Above Assessment and Plan Physician Review Additional Text: Right Buttock cellulitis with abscess/sepsis-s/p I/D with strep infection -continue Zosyn, we had daptomycin since allergic to Vanco on see full culture results -now with Bacteremia likely from the cellulitis -c/w gentle IV fluid -follow wound care team -id has been consulted Gram-positive bacteremia-likely from cellulitis -Continue double antibiotics for now -If still growing strep, may need to leave patient on only penicillin -start Tylenol and ibuprofen for p.r.n. for pyrexia Diabetes mellitus with Hyperglycemia- improving -due to medication nonadherence -s/p increase insulin 70/30 to 50 units b.i.d. for now -continue Accu-Cheks and insulin sliding scale for now. -anion gap remained stable Depression-follow psych -although patient denies suicide ideation Hypertension-blood pressure remained control, resolve hypotension -continue IVF -continue to hold Cardizem Hypokalemia- improved -follow magnesium level Hyponatremia-due to pseudohyponatremia,-improving with correction of glucose Acute renal failure-improved to creatinine of 1.3 - may be component of CKD given PVD DVT prophylaxis-subcutaneous Lovenox Disposition -possible prolonged hospital stay given bacteremia Time Spent Managing PTS Care (In Minutes): 40
--- NOTE | 2020-01-12 15:45 | P.CNS ---
Date of Consult: 01/12/20 Subjective: The patient is a 34-year-old male with history of insulin-dependent diabetes mellitus, hypertension, PVD status post right BKA depression who was admitted to [facility] for pain and swelling to right buttock, fever, chills, polyuria, and decreased appetite. The patient reports not taking his insulin for 2 weeks and had glucose greater than 600 on admission. I was consulted for bacteremia. Past medical history: Insulin-dependent diabetes mellitus, hypertension, PVD status post right BKA and depression Family History: Mother with hypertension and diabetes. Father has diabetes. Brother has hypertension and diabetes. Allergies: Clindamycin, Vancomycin Active Medications Acetaminophen (Tylenol -Tablet) 650 mg PO Q4H PRN PRN Reason: TEMP > 101' F Stop: 02/11/20 09:41 Dextrose (Dextrose 50% Syringe/Vial) 12.5 gm IV PRN PRN; Protocol PRN Reason: HYPOGLYCEMIA Stop: 02/10/20 18:06 Enoxaparin Sodium (Lovenox 40 Mg Inj) 40 mg SQ DAILY CAS Stop: 02/10/20 21:01 Last Admin: 01/12/20 09:04 Dose: 40 mg Documented by: Glucagon (Glucagen) 1 mg IM 1X PRN; Protocol PRN Reason: HYPOGLYCEMIA Stop: 02/10/20 18:06 Hydromorphone HCl (Dilaudid) 2 mg IV Q4H PRN PRN Reason: Pain scale 8-10 (Severe) Stop: 02/11/20 09:42 Last Admin: 01/12/20 13:54 Dose: 2 mg Documented by: Insulin Human Regular 100 unit (/ Sodium Chloride) 100 mls @ 0 mls/hr IV CONT CAS; Protocol Stop: 02/10/20 16:01 Potassium Chloride/Sodium Chloride (Kcl 40meq In Ns 1000 Ml Ivbag) 40 meq in 1,000 mls @ 125 mls/hr IV .Q8H CAS Stop: 02/10/20 18:01 Last Admin: 01/12/20 13:15 Dose: 1,000 mls Documented by: Piperacillin Sod/Tazobactam Sod (Zosyn 3.375 Gm/100 Ml Ns Ivpb) 3.375 gm in 100 mls @ 100 mls/hr IVPB Q8HR CAS; Protocol Stop: 02/10/20 17:31 Last Admin: 04/29/20 09:59 Dose: 100 mls Documented by: Daptomycin 750 mg/ Sodium (Chloride) 100 mls @ 200 mls/hr IVPB Q24H [facility]; Protocol Stop: 02/11/20 11:01 Last Admin: 01/12/20 11:20 Dose: 100 mls Documented by: Ibuprofen (Motrin) 800 mg PO Q8H PRN PRN Reason: TEMP > 101' F Stop: 02/11/20 10:01 Last Admin: 01/12/20 09:55 Dose: 800 mg Documented by: Insulin Human Isoph/Insulin Regular (Novolin 70/30) 50 unit SQ BIDAC [facility] Stop: 02/10/20 19:01 Last Admin: 01/12/20 09:04 Dose: 50 units Documented by: Insulin Human Regular (Novolin -R) 0 unit SQ ACHS [facility]; Protocol Stop: 02/10/20 21:01 Last Admin: 01/12/20 11:28 Dose: 5 unit Documented by: Lidocaine (Aspercreme 4% Patch) 1 patch TOP BEDTIME [facility] Stop: 02/11/20 21:01 Mirtazapine (Remeron) 15 mg PO BEDTIME [facility] Stop: 02/10/20 21:01 Last Admin: 01/11/20 21:00 Dose: Not Given Documented by: Nicotine (Nicoderm) 21 mg TD BEDTIME [facility] Stop: 02/11/20 21:01 Nutritional Formula (Ensure High Protein) 237 ml PO BID [facility] Stop: 02/11/20 21:01 Ondansetron HCl (Zofran) 4 mg IV Q6H PRN PRN Reason: NAUSEA / VOMITING Stop: 02/10/20 18:21 Last Admin: 01/12/20 06:48 Dose: 4 mg Documented by: Sodium Chloride (Normal Saline Flush) 10 ml IV BID [facility] Stop: 02/10/20 21:01 Last Admin: 01/12/20 09:07 Dose: 10 ml Documented by: ROS: CV: Denies chest pain RESP: Denies shortness of breath, cough GI: Denies nausea, vomiting, diarrhea SKIN: Patient reports wound on right knee from wearing prosthetic and pain to right buttock for approximately one week Objective: Temp Pulse Resp BP Pulse Ox 103.7 F H 113 H 16 112/78 100 01/12/20 11:39 01/12/20 11:39 01/12/20 14:24 01/12/20 11:39 01/12/20 14:24 Laboratory Data (last 24 hrs) 01/12/20 05:56: WBC 11.8 H D, Hgb 9.8 L, Hct 30.0 L, Plt Count 177 D 01/12/20 05:12: Sodium 134 L, Potassium 3.9, BUN 13, Creatinine 1.34 H, Glucose 204 H, Total Bilirubin 0.4, AST 20, ALT 13, Alkaline Phosphatase 99 01/11/20 21:56: Sodium 130 L, Potassium 3.2 L, BUN 13, Creatinine 1.35 H, Glucose 336 H ROS: General: Awake, alert, oriented, lying in bed CV: S1, S2 RESP: Clear to auscultation ABD: Round, soft Extremities: Right BKA, no edema Skin: Right buttock abscess surgical incision s/p I&D on 01/10, moderate amount of bloody/puss drainage, stephon area with no erythema or warmth. Right knee trauma wound from prosthetic, Large amount of slough. Assessment and plan: Bacteremia Leukocytosis Chest x-ray negative Blood Cultures 01/10 positive for gram positive cocci in pairs and chains, sensitivity pending Wound Cultures 01/10 positive for gram positive cocci in pairs and chains, sensitivity pending Right buttock abscess s/p I&D 01/10, recommend to pack with iodoform gauze daily Right knee trauma wound, recommend Santyl daily Antibiotic treatment, Daptomycin and Zosyn, continue. Will consider changing to Unasyn after culture sensitivity report Will continue to monitor Thank you for consult Patient examined and discussed with Dr. Cruz.
--- NOTE | 2020-01-12 16:40 | P.CNS ---
Date of Consult: 01/12/20 Reason for Consult: SASKIA, Metabolic acidemia Requesting Physician: Chase Ochoa Chief Complaint: Right buttock pain and swelling, weakness History of Present Illness: 34-year-old male patient with came into the emergency department with complaints of right buttocks swelling and pain. He was worked up, found to have diabetic ketoacidosis, cellulitis of the buttock and he also had bacteremia. Labs done in the emergency department was pertinent for elevated creatinine 1.4 so patient was asked to be evaluated by Nephrology for possible chronic kidney disease/acute kidney injury. He stated that he uses ibuprofen consistently for pain but he stopped this drug a while ago. He does not have any known personal history of kidney failure in the past. Allergies clindamycin Adverse Reaction (Verified 02/08/19 07:26) Nausea/Vomiting vancomycin Adverse Reaction (Verified 02/08/19 07:) Nausea/Vomiting Home Medications: Duloxetine HCl [Cymbalta] 30 mg PO DAILY 06/10/19 Duloxetine HCl [Cymbalta] 60 mg PO BEDTIME 06/10/19 Gabapentin [Neurontin] 800 mg PO TID 06/10/19 Insulin 70/30 NPH/Reg Human [Novolin 70/30*] 30 unit SQ BEDTIME 06/10/19 Insulin 70/30 NPH/Reg Human [Novolin 70/30*] 50 unit SQ DAILY 06/10/19 Diltiazem Tab [Cardizem Tab*] 60 mg PO Q6HR #30 tab 06/12/19 - Past Medical/Surgical History Diabetic: Yes -: Bipolar disorder -: Diabetes mellitus type 2 -: Schizoaffective disorder -: Depression -: Osteomyelitis -: Chronic pain -: Diabetic neuropathy -: PVD -: Chronic pain -: Insomnia -: Suicidal - multiple attempts -: Right BKA -: Left 5th toe amputation Psychosocial/ Personal History: The patient is single. He has no children. The patient is disabled. - Family History Mother Medical History: Hypertension, Diabetes Father Medical History: Heart disease, Diabetes Brother Medical History: Hypertension, Diabetes - Social History Smoking Status: Current every day smoker Alcohol use: No CD- Drugs: Yes Caffeine use: Yes Place of Residence: Home Review of Systems General: Fever, Chills Physical Examination Temp Pulse Resp BP Pulse Ox 97.3 F 103 H 15 144/65 H 100 04/29/20 16:00 01/12/20 16:00 01/12/20 16:00 01/12/20 16:00 01/12/20 16:00 General: Alert, Oriented x3 HEENT: Atraumatic, Normocephalic, PERRLA, EOMI Neck: Supple Respiratory: Clear to auscultation bilaterally Cardiovascular: No edema, Regular rate/rhythm, Normal S1 S2 Gastrointestinal: Normal bowel sounds Musculoskeletal: Erythema, Tenderness Neurological: Normal speech, Normal strength at 5/5 x4 extr, Cranial nerves 3-12 intact Laboratory Data (last 24 hrs) 01/12/20 05:56: WBC 11.8 H D, Hgb 9.8 L, Hct 30.0 L, Plt Count 177 D 01/12/20 05:12: Sodium 134 L, Potassium 3.9, BUN 13, Creatinine 1.34 H, Glucose 204 H, Total Bilirubin 0.4, AST 20, ALT 13, Alkaline Phosphatase 99 01/11/20 21:56: Sodium 130 L, Potassium 3.2 L, BUN 13, Creatinine 1.35 H, Glucose 336 H Conclusions/Impression: Cellulitis/wound infection DKA metabolic acidemia CKD vs SASKIA Hypertension Sepsis Diabetes type 2 Plan: Presently has consistently elevated troponin of 1.4. He also has persistent metabolic acidemia. In view of his present infection and kidney function abnormality, there is concern for diabetic nephropathy. We will obtain urine protein/creatinine, renal ultrasound to further evaluate. We will monitor strict input and output, and this medication for eGFR and avoid nephrotoxic medications. Based on the urine test and renal ultrasound, we will give further directives. Antibiotics to be adjusted by Infectious Disease. Critical care doctor following for sepsis and diabetic ketoacidosis related issues.
--- NOTE | 2020-01-12 18:08 | EKG ---
Test Date: 2020-01-11 Test Time: 14:04:11 Ell Tutor: ROBBIN MEASUREMENT RESULTS: Intervals: Rate: 135 ND: 128 QRSD: 84 QT: 300 QTc: 450 [place]: P: 38 ND: 128 QRS: 67 T: -85 INTERPRETIVE STATEMENTS: Sinus tachycardia ST & T wave abnormality, consider inferolateral ischemia Abnormal ECG Compared to ECG 06/09/2019 17:38:55 No significant changes Electronically Signed On 01-12-20 18:06:38 CDT by Emory Olivarez
[2020-01-12] MEDS: LIDOCAINE 4% PATCH TOP SCH (21:00)
[2020-01-12] MEDS: MIRTAZAPINE 15 MG TAB PO SCH (21:28)
[2020-01-12] MEDS: ENSURE HIGH PROTEIN 237 ML CAN PO SCH (21:29)
[2020-01-13] MEDS: PIPER/TAZO/NS 3.375gm 3.375 GM/100 ML BAG IVPB SCH ×3 (00:53→16:13)
[2020-01-13] MEDS: NS KCL 40MEQ 40 MEQ/1,000 ML BAG IV SCH ×2 (00:58→09:25)
[2020-01-13] MEDS: HYDROMORPHONE HCL 2 MG/ML inj IV PRN ×6 (01:53→22:10)
[2020-01-13 05:51] LABS: Urine Protein/Creatinine Ratio 2.36 ratio (<0.15)
[2020-01-13] MEDS: INSULIN -REGULAR HUMAN 50 UNIT/0.5 ML ML SQ SCH ×5 (07:30→20:57)
[2020-01-13] MEDS: INSULIN 70/30 100 UNITS/ML SQ SCH ×4 (07:30→16:30)
[2020-01-13] MEDS: ENOXAPARIN 40 MG/0.4 ML SQ SCH (09:23)
[2020-01-13] MEDS: ENSURE HIGH PROTEIN 237 ML CAN PO SCH ×2 (09:26→20:21)
--- NOTE | 2020-01-13 10:01 | P.PN ---
Subjective Date of Service: 01/13/20 Chief Complaint: Right buttock pain and swelling, weakness Subjective: No new changes, Tolerating diet, Doing well Review of Systems 10-point ROS is otherwise unremarkable Physical Examination - Vital Signs Temperature: 97.0 F Blood Pressure: 149/73 Pulse: 108 Respirations: 18 Pulse Ox (%): 100 - Physical Exam General: Alert, Oriented x3 HEENT: Atraumatic Respiratory: Clear to auscultation bilaterally Cardiovascular: Regular rate/rhythm, Normal S1 S2 Gastrointestinal: Normal bowel sounds Neurological: Normal strength at 5/5 x4 extr, Cranial nerves 3-12 intact - Studies Microbiology Data (last 24 hrs): 01/11/20 13:41 Throat Culture & Sensitivity - Final NORMAL UPPER RESPIRATORY [place] GROWN. 01/11/20 15:55 Clean Catch Urine [place] Count - Final BETWEEN 10,000 & 100,000 CFU/ML 01/11/20 15:55 Clean Catch Urine - Final MIXED [place]. 01/11/20 13:25 Blood - Blood Blood Culture Gram Stain - Final 01/11/20 13:25 Blood - Blood Gram Stain - Final 01/11/20 13:40 Blood - Blood Blood Culture Gram Stain - Final 01/11/20 13:40 Blood - Blood Gram Stain - Final 01/11/20 15:02 Wound - Abscess Gram Stain - Final Assessment And Plan - Plan Cellulitis/wound infection DKA-resolved. metabolic acidemia CKD stage 3. Hypertension Sepsis Diabetes type 2 Hypokalemia-replete Plan: Presently has consistently elevated creatinine of 1.4. His metabolic acidemia persists. We will start sodium bicarb tablets for metabolic acidemia. Will continue to replete potassium. Sodium is better at 134 today. Will monitor. Overall he is clinically improved as per sepsis. Will continue to avoid nephrotoxic medications, dose medication for his glomerular filtration rate. Physician Review: Patient Assessed, Agree with Above Assessment and Plan Physician Review Additional Text: Right Buttock cellulitis with abscess/sepsis-s/p I/D with strep infection -continue Zosyn, we had daptomycin since allergic to Vanco on see full culture results -now with Bacteremia likely from the cellulitis -c/w gentle IV fluid -follow wound care team -id has been consulted Gram-positive bacteremia-likely from cellulitis -Continue double antibiotics for now -If still growing strep, may need to leave patient on only penicillin -start Tylenol and ibuprofen for p.r.n. for pyrexia Diabetes mellitus with Hyperglycemia- improving -due to medication nonadherence -s/p increase insulin 70/30 to 50 units b.i.d. for now -continue Accu-Cheks and insulin sliding scale for now. -anion gap remained stable Depression-follow psych -although patient denies suicide ideation Hypertension-blood pressure remained control, resolve hypotension -continue IVF -continue to hold Cardizem Hypokalemia- improved -follow magnesium level Hyponatremia-due to pseudohyponatremia,-improving with correction of glucose Acute renal failure-improved to creatinine of 1.3 - may be component of CKD given PVD DVT prophylaxis-subcutaneous Lovenox Disposition -possible prolonged hospital stay given bacteremia
--- NOTE | 2020-01-13 11:38 | RAD REPORT ---
EXAM DESCRIPTION: US - Renal Ultrasound-Complete - 01/13/2020 9:52 am CLINICAL HISTORY: . Abdominal pain COMPARISON: None. FINDINGS: The right kidney measures 11 cm with a normal echotexture. The left kidney measures 12 cm with a normal echotexture. Hydronephrosis is not seen. No gross abnormality of bladder IMPRESSION: Unremarkable renal ultrasound.
[2020-01-13] MEDS: NA CHLORIDE 0.9% IVPB SCH (12:06)
[2020-01-13] MEDS: DAPTOMYCIN IVPB SCH (12:06)
--- NOTE | 2020-01-13 12:35 | CON ---
Date of Consultation: 01/13/2020 This is my first time seeing this patient to my knowledge. History Of Present Illness: He is a 34-year-old male who unfortunately suffers from diabetes who is admitted under the care of the hospitalist for an infection of the buttocks and also with diabetic ke toacidosis. He has been treated with antibiotics and this appears to be clearing. However, the fernando ent says he awakened the day of admission with significant pain in his left shoulder. X-rays were ta evy of his left shoulder, which demonstrated some changes of the AC joint, most likely consistent wit h degenerative changes; however, other processes are not completely ruled out. The actual shoulder j oint appears to be doing well. Physical Examination: Gentle range of motion of the shoulder does not cause pain. However, more significant range of motio n including crossed arm adduction or direct palpation of the AC joint causes intense pain. There is no redness, although there may be some slight swelling in this area. Assessment: This is a 34-year-old male, now with fairly significant pain in his left acromioclavicul ar joint. He has been on antibiotics, but continues to have pain related to his left shoulder in the region of the acromioclavicular joint. Possibilities include injury to the acromioclavicular joint or simple arthritic changes with flare of the acromioclavicular joint. Another possibility is infect ion. This joint will be quite difficult to tap at the bedside and probably ultrasound-guided aspirat ion would be better to ensure a good sample. I spoke with Radiology. They said they are unable to d o this today; however, they will do it tomorrow morning. I think it is probably better to wait rathe r than place a corticosteroid injection there as I would not want to leave this untreated if it were infectious. I spoke with his hospitalist who will order this and we will make him n.p.o. after midnight. I also discussed this plan with the patient. He says he understands things as richard luong SE/NAIMA Voice ID: [id number] Report ID: [id number]
--- NOTE | 2020-01-13 12:42 | P.PN ---
Subjective Date of Service: 01/13/20 Chief Complaint: Right buttock pain and swelling, weakness Subjective: No new changes, No C/O voiced, Improving (-state improve left shoulder pain with lidocaine patch -tolerating p.o. well -no fevers since the last 24 hrs) Physical Examination - Vital Signs Temperature: 97.0 F Blood Pressure: 149/73 Pulse: 108 Respirations: 16 Pulse Ox (%): 100 - Physical Exam General: Alert, Oriented x3 HEENT: Atraumatic, Normocephalic, Mucous membr. moist/pink Neck: 2+ carotid pulse no bruit, JVD not distended Respiratory: Clear to auscultation bilaterally, Normal air movement Cardiovascular: Normal pulses, Regular rate/rhythm, Normal S1 S2 Gastrointestinal: Normal bowel sounds, Soft and benign, Non-distended Musculoskeletal: Other (Right Buttock wound dressing in-situ, left BKA) Neurological: Normal speech, Normal strength at 5/5 x4 extr - Studies Microbiology Data (last 24 hrs): 01/11/20 13:41 Throat Culture & Sensitivity - Final NORMAL UPPER RESPIRATORY [facility] GROWN. 01/11/20 15:55 Clean Catch Urine [place] Count - Final BETWEEN 10,000 & 100,000 CFU/ML 01/11/20 15:55 Clean Catch Urine - Final MIXED [place]. 01/11/20 13:25 Blood - Blood Blood Culture Gram Stain - Final 01/11/20 13:25 Blood - Blood Gram Stain - Final 01/11/20 13:40 Blood - Blood Blood Culture Gram Stain - Final 01/11/20 13:40 Blood - Blood Gram Stain - Final 01/11/20 15:02 Wound - Abscess Gram Stain - Final Assessment And Plan - Current Problems (Diagnosis) (1) Cellulitis of buttock, right Current Visit: Yes Status: Acute (2) Cellulitis Current Visit: No Status: Acute Qualifiers: Site of cellulitis: extremity Site of cellulitis of extremity: lower extremity Laterality: left Qualified Code(s): L03.116 - Cellulitis of left lower limb (3) Bipolar 1 disorder Onset Date: 09/27/16 Current Visit: No Status: Chronic (4) Complete below knee amputation of right lower extremity Onset Date: 07/24/17 Current Visit: No Status: Chronic (5) Diabetes mellitus Onset Date: 09/27/16 Current Visit: No Status: Chronic Qualifiers: Diabetes mellitus type: type 2 Diabetes mellitus halfway insulin use: with halfway use Diabetes mellitus complication status: with skin complications Diabetes mellitus complication detail: with foot ulcer Qualified Code(s): E11.621 - Type 2 diabetes mellitus with foot ulcer; L97.509 - Non-pressure chronic ulcer of other part of unspecified foot with unspecified severity; Z79.4 - jail (current) use of insulin (6) Nicotine dependence Onset Date: 12/02/17 Current Visit: No Status: Chronic Qualifiers: Nicotine product type: cigarettes Physician Review: Patient Assessed, Agree with Above Assessment and Plan Physician Review Additional Text: #Right Buttock cellulitis with abscess/Bacteremia- due to Beta -hemotlyic Strep infection - Zosyn/daptomycin -we switch antibiotics to utilizing -follow full sensitivity report of cultures -continue wound care. -fever resolving-afebrile since 24 hr now, continue to monitor - will send repeat bllod cx today #Left shoulder pain - x-ray shows showed arthritis -orthopedics consult obtained today, suspicion for septic involvement of the acromioclavicular joint. -intervention Radiology has been discuss with for aspiration of left AC joint in a.m. -follow procedure culture results Diabetes mellitus with Hyperglycemia- improving control -due to medication nonadherence -s/p increase insulin 70/30 to 50 units b.i.d. for now -continue Accu-Cheks and insulin sliding scale for now. -anion gap remained closed , resolved mild DKA Depression-c/w meds -follow psych eval for stopping meds use -although patient denies suicide ideation Hypertension-elevated today , resolved hypotension - will dc IVF now - if still elevated , restart home Cardizem Hypokalemia-controlled, controlled magnesium level Hyponatremia-resolved -due to pseudohyponatremia,improving with correction of glucose Acute renal failure-improved to creatinine of 1.3 - may be component of CKD given PVD DVT prophylaxis-subcutaneous Lovenox Disposition -possible prolonged hospital stay given bacteremia. if negative joint aspiration , may need IV abx Time Spent Managing PTS Care (In Minutes): 35
[2020-01-13] MEDS: COLLAGENASE 30 GM OINTMENT TOP SCH (13:54)
[2020-01-13] MEDS: GABAPENTIN 400 MG CAP PO SCH ×2 (13:54→20:24)
--- NOTE | 2020-01-13 16:16 | P.PN ---
Date of Service: 01/13/20 Subjective: The patient is a 34-year-old male with history of insulin-dependent diabetes mellitus, hypertension, PVD status post right BKA depression who was admitted to [facility] for pain and swelling to right buttock, fever, chills, polyuria, and decreased appetite. The patient reports not taking his insulin for 2 weeks and had glucose greater than 600 on admission. I was consulted for bacteremia. Patient examined at bedside. Patient reports pain to right buttock, good appetite and denies nausea, fevers and diarrhea. Objective: Temp Pulse Resp BP Pulse Ox 97.0 F 108 H 17 140/87 99 01/13/20 12:42 01/13/20 12:42 01/13/20 14:27 01/13/20 13:00 01/13/20 14:27 Laboratory Last Values WBC 11.8 K/uL (4.3-10.9) H D 01/12/20 05:56 RBC 4.06 M/uL (4.33-5.43) L 01/12/20 05:56 Hgb 9.8 g/dL (13.6-17.9) L 01/12/20 05:56 Hct 30.0 % (39.6-49.0) L 01/12/20 05:56 MCV 73.9 fL (80-100) L 01/12/20 05:56 MCH 24.0 pg (27.0-35.0) L 01/12/20 05:56 MCHC 32.5 g/dL (32.0-36.0) 01/12/20 05:56 RDW 15.5 % (12.1-15.2) H 01/12/20 05:56 Plt Count 177 K/uL (152-406) D 01/12/20 05:56 MPV 7.9 fL (7.6-11.3) 01/12/20 05:56 Neutrophils % 76.3 % (41.7-73.7) H 01/12/20 05:56 Lymphocytes % 9.2 % (15.3-44.8) L 01/12/20 05:56 Monocytes % 14.0 % (3.3-12.3) H 01/12/20 05:56 Eosinophils % 0.0 % (0-4.4) 01/12/20 05:56 Basophils % 0.5 % (0-1.3) 01/12/20 05:56 Absolute Neutrophils 9.0 K/uL (1.8-8.0) H 01/12/20 05:56 Absolute Lymphocytes 1.1 K/uL (0.7-4.9) 01/12/20 05:56 Absolute Monocytes 1.6 K/uL (0.1-1.3) H 01/12/20 05:56 Absolute Eosinophils 0.0 K/uL (0-0.5) 01/12/20 05:56 Absolute Basophils 0.1 K/uL (0-0.5) 01/12/20 05:56 Morphology Comment Not seen (NOT SEEN) 01/12/20 05:56 pH 7.35 (7.35-7.45) 01/11/20 17:35 pCO2 34.3 mmHG (35-45) L 01/11/20 17:35 pO2 66.0 mmHG (75-100) L 01/11/20 17:35 HCO3 18.5 mmol/L (22-28) L 01/11/20 17:35 Base Excess -6.1 mmol/L 01/11/20 17:35 Oxyhemoglobin 90.2 % (94-97) L 01/11/20 17:35 ABG O2 Sat (Measured) 93.0 % (92-98.5) 01/11/20 17:35 ABG Carboxyhemoglobin 1.8 % (0-1.5) H 01/11/20 17:35 ABG Methemoglobin 1.2 % (0-1.5) 01/11/20 17:35 Other Total Hgb 10.1 g/dl (12-18) L 01/11/20 17:35 Inspired O2 21.0 % 01/11/20 17:35 Sodium 134 mmol/L (136-145) L 01/12/20 05:12 Potassium 3.9 mmol/L (3.5-5.1) 01/12/20 05:12 Chloride 107 mmol/L (98-107) 01/12/20 05:12 Carbon Dioxide 18 mmol/L (21-32) L 01/12/20 05:12 BUN 13 mg/dL (7-18) 01/12/20 05:12 Creatinine 1.34 mg/dL (0.55-1.3) H 01/12/20 05:12 Estimated GFR 61 mL/min (=/>90) L 01/12/20 05:12 Glucose 204 mg/dL (74-106) H 01/12/20 05:12 POC Glucose 307 mg/dl (65-120) H 01/11/20 20:46 Lactic Acid 1.7 mmol/L (0.4-2.0) 01/11/20 13:25 Calcium 7.3 mg/dL (8.5-10.1) L 01/12/20 05:12 Total Bilirubin 0.4 mg/dL (0.2-1.0) 01/12/20 05:12 AST 20 U/L (15-37) 01/12/20 05:12 ALT 13 U/L (12-78) 01/12/20 05:12 Alkaline Phosphatase 99 U/L (45-117) 01/12/20 05:12 C-Reactive Protein 202.00 mg/L (<3.00) H 01/11/20 13:25 Serum Total Protein 5.7 g/dL (6.4-8.2) L 01/12/20 05:12 Albumin 1.7 g/dL (3.4-5.0) L 01/12/20 05:12 Globulin 4.0 g/dL (2.3-3.5) H 01/12/20 05:12 Albumin/Globulin Ratio 0.4 (1.1-1.8) L 01/12/20 05:12 Procalcitonin 2.09 ng/mL (<0.50) H 01/11/20 13:25 TSH 0.522 uIU/mL (0.360-3.740) 01/11/20 13:25 Urine pH 6.0 (5.0-7.0) 01/11/20 15:55 Ur Specific [place] 1.015 (1.005-1.030) 01/11/20 15:55 Glucose (UA)(Auto) 3+ (NEG) 01/11/20 15:55 Urine Ketones 2+ (NEG) H 01/11/20 15:55 Urine Blood 2+ (NEG) H 01/11/20 15:55 Urine Nitrite Negative (NEG) 01/11/20 15:55 Ur Leukocyte Esterase Negative (NEG) 01/11/20 15:55 Urine RBC <5 /HPF (NONE SEEN) 01/11/20 15:55 Urine WBC <5 /HPF (<5) 01/11/20 15:55 Ur Squamous Epith Cells <5 /HPF (NONE SEEN) 01/11/20 15:55 Urine Bacteria <20 /HPF (NONE SEEN) 01/11/20 15:55 Urine Culture Reflexed Not needed 01/11/20 15:55 Ur Random Sodium 26 mmol/L (27-287) L 01/12/20 01:20 Urine Creatinine 70.0 mg/dL (20-370) 01/12/20 01:20 Urine Total Protein 3+ (NEG) H 01/11/20 15:55 Acetone Level Small (NEG) H 01/11/20 13:25 ROS: General: Awake, alert, oriented, lying in bed CV: S1, S2 RESP: Clear to auscultation ABD: Round, soft Extremities: Right BKA, no edema Skin: Right buttock abscess surgical incision s/p I&D on 01/10, dressing CDI, stephon area with no erythema or warmth. Right knee trauma wound from prosthetic, dressing CDI. Assessment and plan: Bacteremia Leukocytosis improving Chest x-ray negative Blood Cultures 01/10 positive for Beta hemolytic strep group b Wound Cultures 01/10 positive for gram positive cocci in pairs and chains Right buttock abscess s/p I&D 01/10, recommend to pack with iodoform gauze daily Right knee trauma wound, recommend Santyl daily Antibiotic treatment, Daptomycin and Zosyn, Recommend to change to Unasyn 1.5g q8h for total of two weeks Recommend patient to go to SNF to continue course of IV antibiotics Will continue to monitor Patient discussed with Dr. Cruz.
[2020-01-13] MEDS ORDERED: AMPICILLIN/SULBACT 1.5GM VIAL IVPB SCH (18:00)
[2020-01-13] MEDS: AMPICILLIN/SULBACT 1.5 GM in NA CHLORIDE 0.9% 100 ML IVPB SCH (18:07)
[2020-01-13] MEDS: DULOXETINE 30 MG CAP PO SCH (20:20)
[2020-01-13] MEDS: MIRTAZAPINE 15 MG TAB PO SCH (20:20)
[2020-01-13] MEDS: NICOTINE 21 MG/PAT TD SCH (20:20)
[2020-01-13] MEDS: IBUPROFEN 400 MG TAB PO PRN (20:24)
[2020-01-13] MEDS: LIDOCAINE 4% PATCH TOP SCH (20:26)
[2020-01-14] MEDS: AMPICILLIN/SULBACT 1.5 GM in NA CHLORIDE 0.9% 100 ML IVPB SCH ×3 (00:24→16:28)
[2020-01-14] MEDS: HYDROMORPHONE HCL 2 MG/ML inj IV PRN ×5 (02:53→21:02)
[2020-01-14 06:06] LABS: Absolute Lymphocytes (CBC) 1.9 K/uL (0.7-4.9); Basophils % 0.5 % (0-1.3); Hematocrit 32.1 % (39.6-49.0); Lymphocytes % 16.3 % (15.3-44.8); MPV 8.4 fL (7.6-11.3); RBC Red Blood Cell Count 4.24 M/uL (4.33-5.43)
[2020-01-14 06:09] LABS: ALT/SGPT 19 U/L (12-78); AST/SGOT 24 U/L (15-37); Albumin 1.7 g/dL (3.4-5.0); Alkaline Phosphatase 114 U/L (45-117); BUN Blood Urea Nitrogen 10 mg/dL (7-18); Bicarbonate 18 mmol/L (21-32); Bilirubin Total 0.3 mg/dL (0.2-1.0); Glucose Level 144 mg/dL (74-106); Protein, Total 6.2 g/dL (6.4-8.2); Sodium Level 135 mmol/L (136-145)
[2020-01-14] MEDS: INSULIN -REGULAR HUMAN 50 UNIT/0.5 ML ML SQ SCH ×4 (07:30→21:01)
[2020-01-14] MEDS: INSULIN 70/30 100 UNITS/ML SQ SCH ×2 (07:30→16:28)
[2020-01-14] MEDS: GABAPENTIN 400 MG CAP PO SCH ×3 (08:28→21:01)
[2020-01-14] MEDS: ENSURE HIGH PROTEIN 237 ML CAN PO SCH ×2 (08:28→21:04)
[2020-01-14] MEDS: ENOXAPARIN 40 MG/0.4 ML SQ SCH (08:28)
[2020-01-14] MEDS: DULOXETINE 30 MG CAP PO SCH ×2 (08:28→21:00)
[2020-01-14] MEDS: COLLAGENASE 30 GM OINTMENT TOP SCH (08:29)
--- NOTE | 2020-01-14 09:03 | P.PN ---
Date of Service: 01/14/20 Subjective: The patient is a 34-year-old male with history of insulin-dependent diabetes mellitus, hypertension, PVD status post right BKA depression who was admitted to [facility] for pain and swelling to right buttock, fever, chills, polyuria, and decreased appetite. The patient reports not taking his insulin for 2 weeks and had glucose greater than 600 on admission. I was consulted for bacteremia. Patient examined at bedside. Patient reports pain to right buttock improving, good appetite and denies nausea, fevers and diarrhea. Patient to be discharged to [facility] for continued care with IV Unasyn for total of 2 weeks. Objective: Laboratory Last Values Temp Pulse Resp BP Pulse Ox 97.2 F 90 14 118/77 100 01/14/20 04:00 01/14/20 04:00 01/14/20 08:26 01/14/20 04:00 01/14/20 08:26 Laboratory Last Values WBC 11.8 K/uL (4.3-10.9) H D 01/12/20 05:56 RBC 4.06 M/uL (4.33-5.43) L 01/12/20 05:56 Hgb 9.8 g/dL (13.6-17.9) L 01/12/20 05:56 Hct 30.0 % (39.6-49.0) L 01/12/20 05:56 MCV 73.9 fL (80-100) L 01/12/20 05:56 MCH 24.0 pg (27.0-35.0) L 01/12/20 05:56 MCHC 32.5 g/dL (32.0-36.0) 01/12/20 05:56 RDW 15.5 % (12.1-15.2) H 01/12/20 05:56 Plt Count 177 K/uL (152-406) D 01/12/20 05:56 MPV 7.9 fL (7.6-11.3) 01/12/20 05:56 Neutrophils % 76.3 % (41.7-73.7) H 01/12/20 05:56 Lymphocytes % 9.2 % (15.3-44.8) L 01/12/20 05:56 Monocytes % 14.0 % (3.3-12.3) H 01/12/20 05:56 Eosinophils % 0.0 % (0-4.4) 01/12/20 05:56 Basophils % 0.5 % (0-1.3) 01/12/20 05:56 Absolute Neutrophils 9.0 K/uL (1.8-8.0) H 01/12/20 05:56 Absolute Lymphocytes 1.1 K/uL (0.7-4.9) 01/12/20 05:56 Absolute Monocytes 1.6 K/uL (0.1-1.3) H 01/12/20 05:56 Absolute Eosinophils 0.0 K/uL (0-0.5) 01/12/20 05:56 Absolute Basophils 0.1 K/uL (0-0.5) 01/12/20 05:56 Morphology Comment Not seen (NOT SEEN) 01/12/20 05:56 pH 7.35 (7.35-7.45) 01/11/20 17:35 pCO2 34.3 mmHG (35-45) L 01/11/20 17:35 pO2 66.0 mmHG (75-100) L 01/11/20 17:35 HCO3 18.5 mmol/L (22-28) L 01/11/20 17:35 Base Excess -6.1 mmol/L 01/11/20 17:35 Oxyhemoglobin 90.2 % (94-97) L 01/11/20 17:35 ABG O2 Sat (Measured) 93.0 % (92-98.5) 01/11/20 17:35 ABG Carboxyhemoglobin 1.8 % (0-1.5) H 01/11/20 17:35 ABG Methemoglobin 1.2 % (0-1.5) 01/11/20 17:35 Other Total Hgb 10.1 g/dl (12-18) L 01/11/20 17:35 Inspired O2 21.0 % 01/11/20 17:35 Sodium 134 mmol/L (136-145) L 01/12/20 05:12 Potassium 3.9 mmol/L (3.5-5.1) 01/12/20 05:12 Chloride 107 mmol/L (98-107) 01/12/20 05:12 Carbon Dioxide 18 mmol/L (21-32) L 01/12/20 05:12 BUN 13 mg/dL (7-18) 01/12/20 05:12 Creatinine 1.34 mg/dL (0.55-1.3) H 01/12/20 05:12 Estimated GFR 61 mL/min (=/>90) L 01/12/20 05:12 Glucose 204 mg/dL (74-106) H 01/12/20 05:12 POC Glucose 307 mg/dl (65-120) H 01/11/20 20:46 Lactic Acid 1.7 mmol/L (0.4-2.0) 01/11/20 13:25 Calcium 7.3 mg/dL (8.5-10.1) L 01/12/20 05:12 Total Bilirubin 0.4 mg/dL (0.2-1.0) 01/12/20 05:12 AST 20 U/L (15-37) 01/12/20 05:12 ALT 13 U/L (12-78) 01/12/20 05:12 Alkaline Phosphatase 99 U/L (45-117) 01/12/20 05:12 C-Reactive Protein 202.00 mg/L (<3.00) H 01/11/20 13:25 Serum Total Protein 5.7 g/dL (6.4-8.2) L 01/12/20 05:12 Albumin 1.7 g/dL (3.4-5.0) L 01/12/20 05:12 Globulin 4.0 g/dL (2.3-3.5) H 01/12/20 05:12 Albumin/Globulin Ratio 0.4 (1.1-1.8) L 01/12/20 05:12 Procalcitonin 2.09 ng/mL (<0.50) H 01/11/20 13:25 TSH 0.522 uIU/mL (0.360-3.740) 01/11/20 13:25 Urine pH 6.0 (5.0-7.0) 01/11/20 15:55 Ur Specific [place] 1.015 (1.005-1.030) 01/11/20 15:55 Glucose (UA)(Auto) 3+ (NEG) 01/11/20 15:55 Urine Ketones 2+ (NEG) H 01/11/20 15:55 Urine Blood 2+ (NEG) H 01/11/20 15:55 Urine Nitrite Negative (NEG) 01/11/20 15:55 Ur Leukocyte Esterase Negative (NEG) 01/11/20 15:55 Urine RBC <5 /HPF (NONE SEEN) 01/11/20 15:55 Urine WBC <5 /HPF (<5) 01/11/20 15:55 Ur Squamous Epith Cells <5 /HPF (NONE SEEN) 01/11/20 15:55 Urine Bacteria <20 /HPF (NONE SEEN) 01/11/20 15:55 Urine Culture Reflexed Not needed 01/11/20 15:55 Ur Random Sodium 26 mmol/L (27-287) L 01/12/20 01:20 Urine Creatinine 70.0 mg/dL (20-370) 01/12/20 01:20 Urine Total Protein 3+ (NEG) H 01/11/20 15:55 Acetone Level Small (NEG) H 01/11/20 13:25 ROS: General: Awake, alert, oriented, lying in bed CV: S1, S2 RESP: Clear to auscultation ABD: Round, soft Extremities: Right BKA, no edema Skin: Right buttock abscess surgical incision s/p I&D on 01/10, dressing CDI, stephon area with no erythema or warmth. Right knee trauma wound from prosthetic, dressing CDI. Assessment and plan: Bacteremia secondary to GPC Leukocytosis improving Chest x-ray negative Blood Cultures 01/10 positive for Strep Aglactiae Wound Cultures 01/10 positive for Enterococcus Faecalis Right buttock abscess s/p I&D 01/10, recommend to pack with iodoform gauze daily Right knee trauma wound, recommend Santyl daily Antibiotic treatment, Unasyn 1.5g q8h for total of two weeks Plan to discharge to [facility] Will continue to monitor Patient examined and discussed with Dr. Cruz.
--- NOTE | 2020-01-14 09:13 | RAD REPORT ---
EXAM DESCRIPTION: US - Extremity Nonvascular Complete - 01/14/2020 9:00 am CLINICAL HISTORY: LEFT ACROMIOCLAVICULAR US GUIDED ASPIRATION, pain in the left AC joint region and left shoulder COMPARISON: Shoulder Left 2 View dated 01/11/2020 TECHNIQUE: Sonographic evaluation was performed of the left AC joint and surrounding soft tissues of the AC joint and left shoulder soft tissues. FINDINGS: The AC joint was well visualized sonographically. There is no capsular soft tissue thicken ing or joint effusion seen. No capsular or pericapsular fluid collection identifiable. In the surrounding soft tissues no mass or fluid collection identifiable. IMPRESSION: No left AC joint capsular or pericapsular fluid collection identified. No abnormalities in the soft tissues surrounding the left AC joint nor elsewhere in the soft tissues of the left shoulder.
[2020-01-14] MEDS ORDERED: TRIAMCINOLONE ACETON 40 MG/ML VIAL IM ONE (12:00)
[2020-01-14] MEDS ORDERED: LIDOCAINE 1% MPF 2 ML AMPULE IV ONE (12:00)
--- NOTE | 2020-01-14 15:24 | PN ---
Date of Progress Note: 01/14/2020 Subjective: Patient seen and examined. Chart reviewed and case discussed with RN and Dr. Cruz. Chan price has swelling of his right buttocks and complaining of some pain, but is improved and medicatio ns reviewed. Objective: Vital Signs: Temperature 98.7, heart rate 100, blood pressure 113/82, respirations 15, O 2 of 99% on room air. General: Awake, alert, oriented x3, ill-appearing male, obese, BMI of 31. CV: S1, S2. Sinus tachycardia. Peripheral pulses present on the left. Respiratory: Moving air well bilaterally. No wheezing. Gastrointestinal: Abdomen is soft, nontender, nondistended. Positive bowel sounds. Extremities: No clubbing, cyanosis. Patient has right BKA. Skin: Right buttock abscess incision site is clean, dry, intact. Right knee trauma from his prosthe sis. Dressing is clean, dry, and intact. Laboratory Data: Sodium 135, potassium 4, chloride 108, CO2 of 18, BUN 10, creatinine 0.87, glucose 144, calcium 7.9, albumin 1.7. WBC 11.4, H and H 10.2 and 32.1, platelets 225. Wound culture growin g out Enterococcus faecalis. Blood cultures growing out Streptococcus agalactiae group B, 12/17 bottle s. Right knee wound is pending at this time. Assessment And Plan: 1.Cellulitis of the right buttock, status post I and D. We will continue with IV antibiotics second ruben to Enterococcus. 2.Left shoulder pain. Chest x-ray shows some arthritis. Orthopedics has been consulted for possibl e septic involvement in the AC joint. Ultrasound was done today shows no left AC joint capsular or p ericapsular fluid collection. No abnormalities in the soft tissues in the left AC joint or elsewhere in the soft tissues of the left shoulder. Patient likely does not have any septic arthritis. I lat[place] l discuss further with Dr. Hudson. 3.Diabetes mellitus type 2 with hyperglycemia. Blood glucose was in the 600s, improving. Patient i s noncompliant. We will continue with insulin 70/30 50 units b.i.d. Continue Accu-Cheks and sliding scale insulin. Did have some mild diabetic ketoacidosis, which is now resolved. 4.Depression. Appreciate psych input. Patient denies any suicidal ideation. Medications have been adjusted. 5.Essential hypertension. We will continue with home medications. Patient is on Cardizem. 6.Hypokalemia. We will replace and monitor. 7.Hyponatremia, resolved, likely pseudohyponatremia due to elevated glucose levels. 8.Acute kidney injury. Creatinine elevated, now resolved. We will continue to monitor. 9.Bacteremia with Streptococcus. We will continue with IV antibiotics. 10.Nicotine dependence, cigarette smoking, counseled. 11.Obesity, BMI of 31.6. Counseled. 12.Deep vein thrombosis prophylaxis with Lovenox. ID recommends 2 weeks of IV antibiotics with Unas yn 1.5 g q.8. Patient is agreeable to SNF transfer. We will discharge to [facility]. Case managem ent has been informed. We will discuss with Orthopedics regarding left shoulder. /NAIMA Voice ID: [id number] Report ID: [id number]
--- NOTE | 2020-01-14 17:55 | P.PN ---
Subjective Date of Service: 01/14/20 Chief Complaint: Right buttock pain and swelling, weakness Subjective: No new changes Review of Systems 10-point ROS is otherwise unremarkable Physical Examination - Vital Signs Temperature: 97.4 F Blood Pressure: 145/91 Pulse: 105 Respirations: 18 Pulse Ox (%): 100 - Physical Exam General: Alert, Oriented x3 HEENT: Atraumatic, Normocephalic, PERRLA Respiratory: Clear to auscultation bilaterally Cardiovascular: Regular rate/rhythm, Normal S1 S2 Gastrointestinal: Normal bowel sounds Neurological: Normal speech, Normal strength at 5/5 x4 extr, Normal tone - Studies Microbiology Data (last 24 hrs): 01/11/20 15:02 Wound - Abscess Gram Stain - Final 01/11/20 15:02 Wound - Abscess Culture & Sensitivity - Final Enterococcus Faecalis 01/11/20 13:40 Blood - Blood Aerobic Blood Culture - Final Streptococcus Agalactiae [facility] 01/11/20 13:40 Blood - Blood Blood Culture Gram Stain - Final 01/11/20 13:40 Blood - Blood Anaerobic Blood Culture - Final Streptococcus Agalactiae [facility] 01/11/20 13:40 Blood - Blood Gram Stain - Final 01/11/20 13:25 Blood - Blood Aerobic Blood Culture - Final Streptococcus Agalactiae [facility] B 01/11/20 13:25 Blood - Blood Blood Culture Gram Stain - Final 01/11/20 13:25 Blood - Blood Anaerobic Blood Culture - Final Streptococcus Agalactiae [facility] 01/11/20 13:25 Blood - Blood Gram Stain - Final Assessment And Plan - Plan Cellulitis/wound infection DKA-resolved. metabolic acidemia CKD stage 3 vs SASKIA. Hypertension Sepsis Diabetes type 2 Hypokalemia-replete Plan: Presently creatinine is now normal. Value is 0.87. Metabolic acidemia persist though. We will continue sodium bicarb tablets for metabolic acidemia. Will continue to replete potassium. Overall he is clinically improved as per sepsis. Will continue to avoid nephrotoxic medications, dose medication for his glomerular filtration rate. Physician Review Additional Text: #Right Buttock cellulitis with abscess/Bacteremia- due to Beta -hemotlyic Strep infection - Zosyn/daptomycin -we switch antibiotics to utilizing -follow full sensitivity report of cultures -continue wound care. -fever resolving-afebrile since 24 hr now, continue to monitor - will send repeat bllod cx today #Left shoulder pain - x-ray shows showed arthritis -orthopedics consult obtained today, suspicion for septic involvement of the acromioclavicular joint. -intervention Radiology has been discuss with for aspiration of left AC joint in a.m. -follow procedure culture results Diabetes mellitus with Hyperglycemia- improving control -due to medication nonadherence -s/p increase insulin 70/30 to 50 units b.i.d. for now -continue Accu-Cheks and insulin sliding scale for now. -anion gap remained closed , resolved mild DKA Depression-c/w meds -follow psych eval for stopping meds use -although patient denies suicide ideation Hypertension-elevated today , resolved hypotension - will dc IVF now - if still elevated , restart home Cardizem Hypokalemia-controlled, controlled magnesium level Hyponatremia-resolved -due to pseudohyponatremia,improving with correction of glucose Acute renal failure-improved to creatinine of 1.3 - may be component of CKD given PVD DVT prophylaxis-subcutaneous Lovenox Disposition -possible prolonged hospital stay given bacteremia. if negative joint aspiration , may need IV abx
[2020-01-14] MEDS: NICOTINE 21 MG/PAT TD SCH (20:59)
[2020-01-14] MEDS: MIRTAZAPINE 15 MG TAB PO SCH (21:00)
[2020-01-14] MEDS: SODIUM BICARB 325 MG TAB PO SCH (21:01)
[2020-01-14] MEDS: LIDOCAINE 4% PATCH TOP SCH (21:15)
[2020-01-15] MEDS: AMPICILLIN/SULBACT 1.5 GM in NA CHLORIDE 0.9% 100 ML IVPB SCH ×3 (00:37→16:12)
[2020-01-15] MEDS: HYDROMORPHONE HCL 2 MG/ML inj IV PRN ×3 (01:15→09:27)
--- NOTE | 2020-01-15 05:10 | OP ---
Date of Procedure: 01/14/2020 Surgeon: Vinny Hudson MD Preprocedure Diagnosis: Pain in the left acromioclavicular joint and pain in the left shoulder girdl e. Postoperative Diagnosis: Pain in the left acromioclavicular joint and pain in the left shoulder gird le. Procedure: Injection of lidocaine with Kenalog into the acromioclavicular joint. Estimated Blood Loss: 0 cc. Complications: There were no complications. Specimen: No pathology specimen sent. Indications For Operation: Mr. Mcdowell is a 34-year-old male who was admitted for other problems, wh o was complaining of severe shoulder pain on the left side. X-rays demonstrated some acromioclavicul ar arthritis, otherwise normal. I saw him yesterday and he had significant amount of pain directly o verlying the clavicle as well as significant pain in the AC joint. Also pain with any movement or ma nipulation of his shoulder in the region of the AC joint. Gentle internal and external rotation of t he shoulder did not cause pain. Direct palpation of the AC joint causes significant pain. There was some question as he was admitted for an infectious process that he could have had a bacterial seedin g to the AC joint and now has a septic AC arthritis. This is a very difficult joint to aspirate with any degree of confidence and there was concern that we could try to aspirate it and not be able to o btain any fluid or even ensure that we were in the AC joint, which could possibly miss an infectious process. Therefore, there was an order for Radiology to use ultrasound to be able to assess the AC j oint and also be able to aspirate the AC joint under ultrasound guidance to be sure that the AC joint is actually entered in such a way if there was a dry tap, it would ensure that there was not signifi cant fluid there, which would not be possible at the bedside. He was seen by Radiology and Radiology says that there is no left AC joint capsular or pericapsular fluid collection identified. No abnorm alities of soft tissue joint or AC joint or elsewhere of the soft tissues of the left shoulder. Give n this information, it was felt that most likely this could be an arthritic flare or a pain generator from the AC joint without infection and risks, benefits, and alternatives to injection of the left A C joint was discussed with the patient. He states he understands things as presented and wishes to p roceed. Procedure In Detail: The shoulder joint was cleansed liberally with Betadine. This was followed by palpation of the left AC joint. The point of maximal tenderness appeared to be in the direct region of the AC joint and a 25-gauge needle was then used for placement of 1 cc of lidocaine with epinephri ne as well as 0.5 cc of Kenalog into this area. The patient tolerated this well. He was placed into a Band-Aid. There were no complications. /NAIMA Voice ID: [id number] Report ID: [id number]
[2020-01-15 06:30] LABS: Absolute Lymphocytes (CBC) 1.3 K/uL (0.7-4.9); Basophils % 0.5 % (0-1.3); Hematocrit 30.2 % (39.6-49.0); Lymphocytes % 10.9 % (15.3-44.8); MPV 8.5 fL (7.6-11.3); RBC Red Blood Cell Count 4.06 M/uL (4.33-5.43)
[2020-01-15 06:32] VITALS: BMI 33.6
[2020-01-15 06:43] LABS: BUN Blood Urea Nitrogen 9 mg/dL (7-18); Bicarbonate 22 mmol/L (21-32); Glucose Level 239 mg/dL (74-106); Potassium 4.6 mmol/L (3.5-5.1); Sodium Level 134 mmol/L (136-145)
[2020-01-15] MEDS: SODIUM BICARB 325 MG TAB PO SCH ×3 (07:59→21:13)
[2020-01-15] MEDS: DULOXETINE 30 MG CAP PO SCH ×2 (07:59→21:14)
[2020-01-15] MEDS: GABAPENTIN 400 MG CAP PO SCH ×3 (07:59→21:13)
[2020-01-15] MEDS: ENOXAPARIN 40 MG/0.4 ML SQ SCH (07:59)
[2020-01-15] MEDS: INSULIN -REGULAR HUMAN 50 UNIT/0.5 ML ML SQ SCH ×4 (08:00→21:16)
[2020-01-15] MEDS: ENSURE HIGH PROTEIN 237 ML CAN PO SCH ×3 (08:00→21:00)
[2020-01-15] MEDS: INSULIN 70/30 100 UNITS/ML SQ SCH ×2 (08:00→16:13)
[2020-01-15] MEDS: COLLAGENASE 30 GM OINTMENT TOP SCH (08:01)
[2020-01-15 09:25] LABS: Platelet Estimate ADEQ
[2020-01-15 09:26] LABS: Blood Morphology Comment NOT SEEN (NOT SEEN)
--- NOTE | 2020-01-15 09:32 | P.PN ---
Subjective Date of Service: 01/15/20 Chief Complaint: Right buttock pain and swelling, weakness Subjective: No new changes Physical Examination - Vital Signs Temperature: 97.6 F Blood Pressure: 149/83 Pulse: 94 Respirations: 20 Pulse Ox (%): 98 - Physical Exam General: Alert, Oriented x3 HEENT: Atraumatic, Normocephalic, PERRLA Respiratory: Clear to auscultation bilaterally Cardiovascular: Regular rate/rhythm, Normal S1 S2 Gastrointestinal: Normal bowel sounds Neurological: Normal speech, Normal strength at 5/5 x4 extr - Studies Microbiology Data (last 24 hrs): 01/11/20 15:02 Wound - Abscess Gram Stain - Final 01/11/20 15:02 Wound - Abscess Culture & Sensitivity - Final Enterococcus Faecalis 01/11/20 13:40 Blood - Blood Aerobic Blood Culture - Final Streptococcus Agalactiae [facility] 01/11/20 13:40 Blood - Blood Blood Culture Gram Stain - Final 01/11/20 13:40 Blood - Blood Anaerobic Blood Culture - Final Streptococcus Agalactiae [facility] 01/11/20 13:40 Blood - Blood Gram Stain - Final 01/11/20 13:25 Blood - Blood Aerobic Blood Culture - Final Streptococcus Agalactiae [facility] 01/11/20 13:25 Blood - Blood Blood Culture Gram Stain - Final 01/11/20 13:25 Blood - Blood Anaerobic Blood Culture - Final Streptococcus Agalactiae [facility] 01/11/20 13:25 Blood - Blood Gram Stain - Final Assessment And Plan - Plan Cellulitis/wound infection DKA-resolved. metabolic acidemia-resolved. CKD stage 3 vs SASKIA. Hypertension Sepsis Diabetes type 2 Hypokalemia-replete Plan: Presently creatinine is now normal. Value is 0.80 today. Metabolic acidemia is now corrected. Overall he is clinically improved as per sepsis. Will continue to avoid nephrotoxic medications, dose medication for his gl omerular filtration rate. Physician Review: Patient Assessed, Agree with Above Assessment and Plan Physician Review Additional Text: #Right Buttock cellulitis with abscess/Bacteremia- due to Beta -hemotlyic Strep infection - Zosyn/daptomycin -we switch antibiotics to utilizing -follow full sensitivity report of cultures -continue wound care. -fever resolving-afebrile since 24 hr now, continue to monitor - will send repeat bllod cx today #Left shoulder pain - x-ray shows showed arthritis -orthopedics consult obtained today, suspicion for septic involvement of the acromioclavicular joint. -intervention Radiology has been discuss with for aspiration of left AC joint in a.m. -follow procedure culture results Diabetes mellitus with Hyperglycemia- improving control -due to medication nonadherence -s/p increase insulin 70/30 to 50 units b.i.d. for now -continue Accu-Cheks and insulin sliding scale for now. -anion gap remained closed , resolved mild DKA Depression-c/w meds -follow psych eval for stopping meds use -although patient denies suicide ideation Hypertension-elevated today , resolved hypotension - will dc IVF now - if still elevated , restart home Cardizem Hypokalemia-controlled, controlled magnesium level Hyponatremia-resolved -due to pseudohyponatremia,improving with correction of glucose Acute renal failure-improved to creatinine of 1.3 - may be component of CKD given PVD DVT prophylaxis-subcutaneous Lovenox Disposition -possible prolonged hospital stay given bacteremia. if negative joint aspiration , may need IV abx
[2020-01-15] MEDS ORDERED: IBUPROFEN 400 MG TAB PO PRN (10:26)
--- NOTE | 2020-01-15 12:16 | PN ---
Date of Progress Note: 01/15/2020 Subjective: Patient seen and examined. Chart reviewed and case discussed with RN and Dr. Hudson. Patient had shoulder steroid injection done yesterday. States he feels significantly better, able to move it more freely. Medication List: Reviewed. Physical Examination: Vital Signs: Temperature 97.6, heart rate 94, blood pressure 149/83, respirations 20, O2 of 98% on r oom air. General: Awake, alert, oriented x3, not in any acute distress, obese male, slightly ill-appearing. CVS: S1, S2. Regular rate and rhythm. Peripheral pulses present on the left lower extremity. Extremities: No clubbing, cyanosis on the left lower extremity. Right lower extremity BKA. Neurologic: Nonfocal. Skin: The patient has right buttock abscess incision site is clean, dry, and intact. Right knee abr asion from prosthesis. Dressing is clean, dry, and intact. Laboratory Data: Sodium 134, potassium 4.6, chloride 103, CO2 of 22, BUN 9, creatinine 0.7, glucose 239, calcium 7.8. WBC 11.8, H and H 9.8 and 30.2, platelets 311, neutrophils 84%. Wound abscess bud wing Enterococcus faecalis. Blood culture growing Streptococcus agalactiae. Knee culture from the w ound, no organisms seen, currently pending. Assessment: 34-year-old male with. 1.Cellulitis and abscess of the right buttock, status post I and D. We will continue with IV antibi otics. Patient's culture is growing out enterococcus. 2.Left shoulder pain. Ultrasound did not show any fluid collection. Dr. Hudson performed steroi d shot. Patient reports improvement. 3.Diabetes mellitus type 2 with hyperglycemia, improved. Patient is noncompliant. We will continue his insulin 50 units b.i.d. 70/30. Continue Accu-Cheks and sliding scale insulin. His mild diabeti c ketoacidosis is resolved. 4.Bacteremia with Streptococcus agalactiae. Continue with IV antibiotics for total of 2 weeks. 5.Major depressive disorder. No suicidal ideation. Stable. Appreciate psych input. 6.Essential hypertension, stable. Continue Cardizem. 7.Hypokalemia. Replace and monitor. 8.Pseudohyponatremia, corrected, was secondary to his elevated blood sugar levels. 9.Acute kidney injury, resolved. Creatinine has now normalized. We will continue to monitor. Avoi d NSAIDs. 10.Nicotine dependence, cigarette smoking, counseled. 11.Obesity, BMI 31. 12.Deep venous thrombosis prophylaxis with Lovenox. [facility] 2 weeks of IV antibiotics, Unasyn 1.5 g q.8. We will continue with wound care as per ID recommendations. SA/MODL Voice ID: [id number] Report ID: [id number]
--- NOTE | 2020-01-15 13:02 | RAD REPORT ---
EXAM DESCRIPTION: RAD - Chest Single View - 01/15/2020 12:17 am CLINICAL HISTORY: 4 years Male, S/P PICC insertion COMPARISON: Chest radiograph dated January 11, 2020 FINDINGS/IMPRESSION: Placement of right upper extremity PICC terminating in the distal SVC. No focal lung consolidation. No pleural effusion. No pneumothorax. Cardiomediastinal silhouette is within normal limits. No acute osseous abnormality. Electronically signed by: Shawn Pearce DO 01/15/2020 12:26 AM CDT Due to temporary technical issues with the PACS/Fluency reporting system, reports are being signed by the in house radiologist as a courtesy to ensure prompt reporting. The interpreting radiologist is f ully responsible for the content of the report.
[2020-01-15] MEDS: HYDROCODONE/APAP 7.5/325 MG TAB PO PRN ×3 (13:07→22:50)
[2020-01-15] MEDS: MIRTAZAPINE 15 MG TAB PO SCH (21:00)
[2020-01-15] MEDS: NICOTINE 21 MG/PAT TD SCH (21:15)
[2020-01-15] MEDS: LIDOCAINE 4% PATCH TOP SCH (21:15)
[2020-01-16] MEDS: AMPICILLIN/SULBACT 1.5 GM in NA CHLORIDE 0.9% 100 ML IVPB SCH ×3 (01:16→17:16)
[2020-01-16] MEDS: HYDROCODONE/APAP 7.5/325 MG TAB PO PRN ×4 (05:46→21:19)
[2020-01-16 06:21] LABS: Basophils % 0.6 % (0-1.3); Hematocrit 30.8 % (39.6-49.0); Lymphocytes % 23.2 % (15.3-44.8); MPV 7.1 fL (7.6-11.3); RBC Red Blood Cell Count 4.11 M/uL (4.33-5.43)
[2020-01-16 06:33] LABS: BUN Blood Urea Nitrogen 12 mg/dL (7-18); Bicarbonate 27 mmol/L (21-32); Glucose Level 110 mg/dL (74-106); Potassium 3.4 mmol/L (3.5-5.1); Sodium Level 141 mmol/L (136-145)
[2020-01-16] MEDS: INSULIN -REGULAR HUMAN 50 UNIT/0.5 ML ML SQ SCH ×4 (07:30→20:52)
[2020-01-16] MEDS: GABAPENTIN 400 MG CAP PO SCH ×3 (08:22→20:49)
[2020-01-16] MEDS: INSULIN 70/30 100 UNITS/ML SQ SCH ×2 (08:23→17:16)
[2020-01-16] MEDS: DULOXETINE 30 MG CAP PO SCH ×2 (08:23→20:49)
[2020-01-16] MEDS: SODIUM BICARB 325 MG TAB PO SCH ×3 (08:23→20:49)
[2020-01-16] MEDS: ENOXAPARIN 40 MG/0.4 ML SQ SCH (08:23)
[2020-01-16] MEDS: ENSURE HIGH PROTEIN 237 ML CAN PO SCH ×2 (08:24→20:52)
[2020-01-16] MEDS: COLLAGENASE 30 GM OINTMENT TOP SCH (08:25)
--- NOTE | 2020-01-16 14:55 | PN ---
Date of Progress Note: 01/16/2020 Subjective: Patient seen and examined. Chart reviewed and case discussed with RN. Patient saadia leblanc doing well. No significant complaints. Tolerating diet. No acute events overnight. Medications: List reviewed. Physical Examination: Vital Signs: Temperature 97.6, heart rate 92, blood pressure 142/85, respirations 20, O2 of 97% on r oom air. General: Awake, alert, oriented x3, not in any acute distress. Obese male. CV: S1, S2. Regular rate and rhythm. Peripheral pulses present. Respiratory: Moving air well bilaterally. No wheezing or stridor. Gastrointestinal: Abdomen is soft, nontender, nondistended. Positive bowel sounds. No guarding or rigidity. Extremities: No clubbing, cyanosis, or edema. Neurologic: Nonfocal. Right-sided BKA. Skin: Right-sided sacral decubitus ulcer. Laboratory Data: Sodium 141, potassium 3.4, chloride 107, CO2 of 27, BUN 12, creatinine 0.73, glucos e 110, calcium 8. WBC 8.4, H and H 10.1 and 30.8, platelets 429, neutrophils 69%. Wound cultures fr om the sacrum growing Enterococcus faecalis, from the right knee showing Streptococcus agalactiae. B lood culture also growing Streptococcus agalactiae. Assessment: A 34-year-old male with. 1.Cellulitis and abscess of the right buttock, status post I and D. Continue IV antibiotics. Cultu re showing enterococcus. 2.Bacteremia with Streptococcus agalactiae. Antibiotics for a total of 2 weeks. 3.Right knee infection also with Streptococcus agalactiae, on antibiotics. 4.Left shoulder pain due to arthritis, improved with steroid shot. Appreciate Dr. Hudson's input . 5.Diabetes mellitus type 2 with hyperglycemia, stable. We will continue sliding scale insulin and h ome dose of insulin. DKA is resolved. 6.Major depressive disorder, stable. Continue home medications. 7.Essential hypertension, stable. 8.Hypokalemia. Replace and monitor. 9.Pseudohyponatremia, corrected, was secondary to his elevated blood sugar levels. 10.Acute kidney injury, resolved. Avoid NSAIDs. Continue to monitor creatinine level. 11.Nicotine dependence with cigarette smoking, counseled. 12.Obesity, BMI 31. 13.Deep venous thrombosis prophylaxis with Lovenox. Plan: Discharge to residential facility once accepted for 2 weeks of IV antibiotics. Continue w ound care. /NAIMA Voice ID: [id number] Report ID: [id number]
[2020-01-16] MEDS: LIDOCAINE 4% PATCH TOP SCH (20:48)
[2020-01-16] MEDS: NICOTINE 21 MG/PAT TD SCH (20:49)
[2020-01-16] MEDS: MIRTAZAPINE 15 MG TAB PO SCH (20:53)
[2020-01-17] MEDS: AMPICILLIN/SULBACT 1.5 GM in NA CHLORIDE 0.9% 100 ML IVPB SCH ×3 (00:15→18:32)
[2020-01-17] MEDS: HYDROCODONE/APAP 7.5/325 MG TAB PO PRN ×4 (01:32→18:21)
[2020-01-17 04:49] LABS: BUN Blood Urea Nitrogen 10 mg/dL (7-18); Bicarbonate 31 mmol/L (21-32); Glucose Level 90 mg/dL (74-106); Potassium 3.2 mmol/L (3.5-5.1); Sodium Level 142 mmol/L (136-145)
[2020-01-17] MEDS: INSULIN -REGULAR HUMAN 50 UNIT/0.5 ML ML SQ SCH ×4 (07:30→20:51)
[2020-01-17] MEDS ORDERED: POTASSIUM CL SA 10 MEQ TAB PO ONE (07:56)
[2020-01-17] MEDS: ENSURE HIGH PROTEIN 237 ML CAN PO SCH ×2 (09:00→20:53)
[2020-01-17] MEDS: INSULIN 70/30 100 UNITS/ML SQ SCH ×2 (09:04→16:54)
[2020-01-17] MEDS: SODIUM BICARB 325 MG TAB PO SCH ×3 (09:06→20:50)
[2020-01-17] MEDS: GABAPENTIN 400 MG CAP PO SCH ×3 (09:06→20:51)
[2020-01-17] MEDS: ENOXAPARIN 40 MG/0.4 ML SQ SCH (09:06)
[2020-01-17] MEDS: DULOXETINE 30 MG CAP PO SCH ×2 (09:06→20:50)
[2020-01-17] MEDS: COLLAGENASE 30 GM OINTMENT TOP SCH (09:13)
--- NOTE | 2020-01-17 15:40 | P.PN ---
Date of Service: 01/17/20 Subjective: The patient is a 34-year-old male with bacteremia positive for GPC currently being treated with Unasyn. Patient examined at bedside. Patient reports pain to right buttock improving, good appetite and denies nausea, fevers and diarrhea. Patient to be discharged to [place] for continued care with IV Unasyn for total of 2 weeks. Objective: Temp Pulse Resp BP Pulse Ox 97.3 F 87 18 152/95 H 97 01/17/20 12:00 01/17/20 12:00 01/17/20 13:08 01/17/20 12:00 01/17/20 13:08 Laboratory Last Values WBC 11.8 K/uL (4.3-10.9) H D 01/12/20 05:56 RBC 4.06 M/uL (4.33-5.43) L 01/12/20 05:56 Hgb 9.8 g/dL (13.6-17.9) L 01/12/20 05:56 Hct 30.0 % (39.6-49.0) L 01/12/20 05:56 MCV 73.9 fL (80-100) L 01/12/20 05:56 MCH 24.0 pg (27.0-35.0) L 01/12/20 05:56 MCHC 32.5 g/dL (32.0-36.0) 01/12/20 05:56 RDW 15.5 % (12.1-15.2) H 01/12/20 05:56 Plt Count 177 K/uL (152-406) D 01/12/20 05:56 MPV 7.9 fL (7.6-11.3) 01/12/20 05:56 Neutrophils % 76.3 % (41.7-73.7) H 01/12/20 05:56 Lymphocytes % 9.2 % (15.3-44.8) L 01/12/20 05:56 Monocytes % 14.0 % (3.3-12.3) H 01/12/20 05:56 Eosinophils % 0.0 % (0-4.4) 01/12/20 05:56 Basophils % 0.5 % (0-1.3) 01/12/20 05:56 Absolute Neutrophils 9.0 K/uL (1.8-8.0) H 01/12/20 05:56 Absolute Lymphocytes 1.1 K/uL (0.7-4.9) 01/12/20 05:56 Absolute Monocytes 1.6 K/uL (0.1-1.3) H 01/12/20 05:56 Absolute Eosinophils 0.0 K/uL (0-0.5) 01/12/20 05:56 Absolute Basophils 0.1 K/uL (0-0.5) 01/12/20 05:56 Morphology Comment Not seen (NOT SEEN) 01/12/20 05:56 pH 7.35 (7.35-7.45) 01/11/20 17:35 pCO2 34.3 mmHG (35-45) L 01/11/20 17:35 pO2 66.0 mmHG (75-100) L 01/11/20 17:35 HCO3 18.5 mmol/L (22-28) L 01/11/20 17:35 Base Excess -6.1 mmol/L 01/11/20 17:35 Oxyhemoglobin 90.2 % (94-97) L 01/11/20 17:35 ABG O2 Sat (Measured) 93.0 % (92-98.5) 01/11/20 17:35 ABG Carboxyhemoglobin 1.8 % (0-1.5) H 01/11/20 17:35 ABG Methemoglobin 1.2 % (0-1.5) 01/11/20 17:35 Other Total Hgb 10.1 g/dl (12-18) L 01/11/20 17:35 Inspired O2 21.0 % 01/11/20 17:35 Sodium 134 mmol/L (136-145) L 01/12/20 05:12 Potassium 3.9 mmol/L (3.5-5.1) 01/12/20 05:12 Chloride 107 mmol/L (98-107) 01/12/20 05:12 Carbon Dioxide 18 mmol/L (21-32) L 01/12/20 05:12 BUN 13 mg/dL (7-18) 01/12/20 05:12 Creatinine 1.34 mg/dL (0.55-1.3) H 01/12/20 05:12 Estimated GFR 61 mL/min (=/>90) L 01/12/20 05:12 Glucose 204 mg/dL (74-106) H 01/12/20 05:12 POC Glucose 307 mg/dl (65-120) H 01/11/20 20:46 Lactic Acid 1.7 mmol/L (0.4-2.0) 01/11/20 13:25 Calcium 7.3 mg/dL (8.5-10.1) L 01/12/20 05:12 Total Bilirubin 0.4 mg/dL (0.2-1.0) 01/12/20 05:12 AST 20 U/L (15-37) 01/12/20 05:12 ALT 13 U/L (12-78) 01/12/20 05:12 Alkaline Phosphatase 99 U/L (45-117) 01/12/20 05:12 C-Reactive Protein 202.00 mg/L (<3.00) H 01/11/20 13:25 Serum Total Protein 5.7 g/dL (6.4-8.2) L 01/12/20 05:12 Albumin 1.7 g/dL (3.4-5.0) L 01/12/20 05:12 Globulin 4.0 g/dL (2.3-3.5) H 01/12/20 05:12 Albumin/Globulin Ratio 0.4 (1.1-1.8) L 01/12/20 05:12 Procalcitonin 2.09 ng/mL (<0.50) H 01/11/20 13:25 TSH 0.522 uIU/mL (0.360-3.740) 01/11/20 13:25 Urine pH 6.0 (5.0-7.0) 01/11/20 15:55 Ur Specific [place] 1.015 (1.005-1.030) 01/11/20 15:55 Glucose (UA)(Auto) 3+ (NEG) 01/11/20 15:55 Urine Ketones 2+ (NEG) H 01/11/20 15:55 Urine Blood 2+ (NEG) H 01/11/20 15:55 Urine Nitrite Negative (NEG) 01/11/20 15:55 Ur Leukocyte Esterase Negative (NEG) 01/11/20 15:55 Urine RBC <5 /HPF (NONE SEEN) 01/11/20 15:55 Urine WBC <5 /HPF (<5) 01/11/20 15:55 Ur Squamous Epith Cells <5 /HPF (NONE SEEN) 01/11/20 15:55 Urine Bacteria <20 /HPF (NONE SEEN) 01/11/20 15:55 Urine Culture Reflexed Not needed 01/11/20 15:55 Ur Random Sodium 26 mmol/L (27-287) L 01/12/20 01:20 Urine Creatinine 70.0 mg/dL (20-370) 01/12/20 01:20 Urine Total Protein 3+ (NEG) H 01/11/20 15:55 Acetone Level Small (NEG) H 01/11/20 13:25 ROS: General: Awake, alert, oriented, lying in bed CV: S1, S2 RESP: Clear to auscultation ABD: Round, soft Extremities: Right BKA, no edema Skin: Right buttock abscess surgical incision s/p I&D on 01/10, dressing CDI, stephon area with no erythema or warmth. Right knee trauma wound from prosthetic, dressing CDI. Assessment and plan: Bacteremia secondary to GPC Leukocytosis Chest x-ray negative Blood Cultures 01/10 positive for Strep Aglactiae Wound Cultures 01/10 positive for Enterococcus Faecalis Right buttock abscess s/p I&D 01/10, continue to pack with iodoform gauze daily Right knee trauma wound, continue Santyl daily Antibiotic treatment, Unasyn 1.5g q8h for total of two weeks Plan to discharge to [facility] Will continue to monitor Patient discussed with Dr. Cruz.
[2020-01-17] MEDS: LIDOCAINE 4% PATCH TOP SCH (20:49)
[2020-01-17] MEDS: NICOTINE 21 MG/PAT TD SCH (20:50)
[2020-01-17] MEDS: MIRTAZAPINE 15 MG TAB PO SCH (20:51)
[2020-01-17] MEDS ORDERED: MORPHINE 2 MG/ML SYR IV ONE (21:49)
[2020-01-18] MEDS: HYDROCODONE/APAP 7.5/325 MG TAB PO PRN ×4 (00:49→18:22)
[2020-01-18] MEDS: AMPICILLIN/SULBACT 1.5 GM in NA CHLORIDE 0.9% 100 ML IVPB SCH ×3 (00:49→17:11)
--- NOTE | 2020-01-18 03:44 | DS ---
date of service 01/17/2020 Consultants: Dr. Cruz with Infectious Disease, Dr. Minor with Nephrology, Dr. Hudson with Orthopedics. Procedures: By Dr. Hudson on 01/15/2020, steroid injection in the left acromioclavicular joint space. Admitting Diagnoses: 1. Cellulitis of right buttock and abscess. 2. Cellulitis of left lower extremity. 3. Bipolar 1 disorder. 4. 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 5. Diabetes mellitus type 2 with long-term use of insulin with skin complications and hyperglycemia. 6. Nicotine dependence with cigarette smoking. 7. Obesity. 8. Schizoaffective disorder. 9. Neuropathy. 10. Acute kidney injury. Discharge Diagnoses: 1. Cellulitis and abscess of the right buttock, status post I and D, culture growing enterococcus. 2. Bacteremia with Streptococcus agalactiae. 3. Right knee infection of the skin near the knee, infection is not in the knee with Streptococcus agalactiae. 4. Left shoulder pain due to arthritis, improved with steroid shot. 5. Acute kidney injury, resolved. 6. Diabetes mellitus type 2 with hyperglycemia, neuropathy and skin infections. 7. Mild diabetic ketoacidosis, resolved. 8. Major depressive disorder, stable. 9. Bipolar 1 disorder, stable. Medications adjusted. 10. Essential hypertension, stable. 11. Schizoaffective disorder. 12. Hypokalemia, replace. 13. Pseudohyponatremia due to elevated blood glucose levels. 14. Nicotine dependence with cigarette smoking, counseled. 15. Obesity, BMI 31 counseled. Hospital Course: Patient is a 34-year-old male with past medical history of insulin-dependent diabetes for 12 years, hypertension, peripheral vascular disease, status post BKA approximately 3 years ago, on insulin, comes in with multiple psychiatric history including depression, bipolar, schizoaffective disorder, comes in with right buttock pain and swelling as well as weakness. Patient was admitted for cellulitis and abscess. I and D was done. Patient was started on IV antibiotics. Cultures were obtained. Infectious Disease, Dr. Cruz also saw the patient. His wound cultures from the abscess, Enterococcus faecalis. Wound cultures from the around that skin around the right knee, which was caused due to his prosthesis grew out Streptococcus agalactiae. His blood cultures also grew out Streptococcus agalactiae group. Patient was recommended to be on Unasyn for 2 weeks. PICC line was placed and he was referred for [facility] facility placement. He was also seen by Dr. Hudson due to shoulder pain. Septic joint was ruled out and he was given steroid shot, which improved his pain and function. Overall, patient did well during the course of the hospital stay. He did have significant hyperglycemia with glucose in the 500s and with pseudohyponatremia, mild DKA. This was corrected with insulin. Patient had some electrolyte abnormalities, which were also corrected. He was counseled regarding his diabetes. He was also seen by Psychiatry, Dr. Batres and his medications were adjusted. He was also seen by retail general manager for his acute kidney injury. His creatinine improved. Patient overall did well. He was then referred to [facility] and will be discharged once accepted for long-term IV antibiotics. He understands risks of PICC line. At this point, the benefits outweigh the risks. Medications: As per medication reconciliation list. Finish off Unasyn 1.5 g q.8 for total of 2 weeks. Diet: Diabetic. Activity: Fall precautions. Discharge Instructions: Follow up with primary care physician in 2-3 days. Follow up with Infectious Disease, Dr. Cruz in 2 weeks. Follow up with retail general manager, Dr. Minor in 2 weeks. Return to ER for worsening condition. Weekly CBC, CMP, ESR, and CRP. Dose to be adjusted renally. Weekly repeat cultures once antibiotics are complete. PICC line care. PICC line to be discontinued once antibiotics completed. Follow up with psychiatrist, Dr. Combs in 2 weeks. Diet: Diabetic. Activity: Fall precautions. Physical Examination: General: Awake, alert, oriented x3, not in any acute distress, obese male. CV: S1, S2. Regular rate and rhythm. Respiratory: Moving air well bilaterally. No wheezing. Gastrointestinal: Abdomen is soft, nontender, nondistended. Positive bowel sounds. Extremities: No clubbing, cyanosis, or edema of the left lower extremity. Right BKA. Skin: Patient has had a right sacral ulcer and which is bandaged. Ulcer on the right thigh near the knee. Total time spent discharging patient was 37 minutes. /NAIMA Voice ID: [id number] Report ID: [id number] MTDD
[2020-01-18 05:48] LABS: BUN Blood Urea Nitrogen 12 mg/dL (7-18); Bicarbonate 33 mmol/L (21-32); Glucose Level 114 mg/dL (74-106); Potassium 3.5 mmol/L (3.5-5.1); Sodium Level 142 mmol/L (136-145)
[2020-01-18] MEDS: INSULIN -REGULAR HUMAN 50 UNIT/0.5 ML ML SQ SCH ×4 (07:30→21:09)
[2020-01-18] MEDS: INSULIN 70/30 100 UNITS/ML SQ SCH ×2 (08:42→17:11)
[2020-01-18] MEDS: GABAPENTIN 400 MG CAP PO SCH ×3 (08:43→20:49)
[2020-01-18] MEDS: DULOXETINE 30 MG CAP PO SCH ×2 (08:43→20:49)
[2020-01-18] MEDS: ENOXAPARIN 40 MG/0.4 ML SQ SCH (08:43)
[2020-01-18] MEDS: SODIUM BICARB 325 MG TAB PO SCH ×3 (08:43→20:49)
[2020-01-18] MEDS: ENSURE HIGH PROTEIN 237 ML CAN PO SCH ×2 (08:43→20:49)
[2020-01-18] MEDS: COLLAGENASE 30 GM OINTMENT TOP SCH (08:44)
--- NOTE | 2020-01-18 09:34 | ECHO ---
HEIGHT: 5 ft 7 in WEIGHT: 215 lb 0 oz DATE OF STUDY: 01/17/[address]: Cam Pinto MD 2-DIMENSIONAL: YES M.MODE: YES DOPPLER: YES COLOR FLOW: YES TDS: NO PORTABLE: NO DEFINITY: NO BUBBLE STUDY: NO DIAGNOSIS: BACTEREMIA CARDIAC HISTORY: CATHERIZATION: NO SURGERY: NO PROSTHETIC VALVE: NO PACEMAKER: NO MEASUREMENTS (cm) DIASTOLIC (NORMALS) SYSTOLIC (NORMALS) IVSd 0.9 (0.6-1.2) LA Diam 3.1 (1.9-4.0) LVEF 71% LVIDd 4.7 (3.5-5.7) LVIDs 2.8 (2.0-3.5) %FS 41% LVPWd 1.0 (0.6-1.2) Ao Diam 2.6 (2.0-3.7) 2 DIMENSIONAL ASSESSMENT: RIGHT ATRIUM: LEFT ATRIUM: RIGHT VENTRICLE: LEFT VENTRICLE: TRICUSPID VALVE: MITRAL VALVE: PULMONIC VALVE: AORTIC VALVE: PERICARDIAL EFFUSION: AORTIC ROOT: LEFT VENTRICULAR WALL MOTION: DOPPLER/COLOR FLOW: COMMENTS: NORMAL 2D ECHOCARDIOGRAM WITH DOPPLER. NO VEGETATION. NO EFFUSION. TECHNOLOGIST: Verito GALEANO
[2020-01-18 10:31] VITALS: O2SAT 98
--- NOTE | 2020-01-18 11:07 | P.DS ---
Admission Date: 01/12/20 Discharge Date: 01/18/20 Disposition: TRANSFER TO SNF - MEDICAL Discharge Condition: FAIR Reason for Admission: Right buttock pain and swelling, weakness Consultations: Consultants: Dr. Cruz with Infectious Disease, Dr. Minor with Nephrology, Dr. Hudson with Orthopedics. Procedures: Procedures: By Dr. Hudson on 01/15/2020, steroid injection in the left acromioclavicular joint space. Admitting Diagnoses: 1. Cellulitis of right buttock and abscess. 2. Cellulitis of left lower extremity. 3. Bipolar 1 disorder. 4. 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 5. Diabetes mellitus type 2 with long-term use of insulin with skin complications and hyperglycemia. 6. Nicotine dependence with cigarette smoking. 7. Obesity. 8. Schizoaffective disorder. 9. Neuropathy. 10. Acute kidney injury. Discharge Diagnoses: 1. Cellulitis and abscess of the right buttock, status post I and D, culture growing enterococcus. 2. Bacteremia with Streptococcus agalactiae. 3. Right knee infection of the skin near the knee, infection is not in the knee with Streptococcus agalactiae. 4. Left shoulder pain due to arthritis, improved with steroid shot. 5. Acute kidney injury, resolved. 6. Diabetes mellitus type 2 with hyperglycemia, neuropathy and skin infections. 7. Mild diabetic ketoacidosis, resolved. 8. Major depressive disorder, stable. 9. Bipolar 1 disorder, stable. Medications adjusted. 10. Essential hypertension, stable. 11. Schizoaffective disorder. 12. Hypokalemia, replace. 13. Pseudohyponatremia due to elevated blood glucose levels. 14. Nicotine dependence with cigarette smoking, counseled. 15. Obesity, BMI 31 counseled. Brief History of Present Illness: 34-year-old male with history of insulin-dependent diabetes, hypertension, peripheral vascular disease, status post BKA approximately 3 years ago and multiple psychiatric issues. Patient presented with right buttocks pain and swelling. Patient found to have cellulitis with abscess. Hospital Course: Patient admitted for cellulitis and abscess. I and D was done. Patient was started on IV antibiotics. Cultures were obtained. Infectious Disease, Dr. Cruz also saw the patient. His wound cultures from the abscess, Enterococcus faecalis. Wound cultures from the around that skin around the right knee, which was caused due to his prosthesis grew out Streptococcus agalactiae. His blood cultures also grew out Streptococcus agalactiae group. Patient was recommended to be on Unasyn for 2 weeks. PICC line was placed and he was referred for senior care facility placement. He was also seen by Dr. Hudson due to shoulder pain. Septic joint was ruled out and he was given steroid shot, which improved his pain and function. Overall, patient did well during the course of the hospital stay. He did have significant hyperglycemia with glucose in the 500s and with pseudohyponatremia, mild DKA. This was corrected with insulin. Patient had some electrolyte abnormalities, which were also corrected. He was counseled regarding his diabetes. He was also seen by Psychiatry, Dr. Batres and his medications were adjusted. He was also seen by career development consultant for his acute kidney injury. His creatinine improved. Patient overall did well. He was then referred to senior care facility and will be discharged once accepted for long-term IV antibiotics. He understands risks of PICC line. Patient will continue with Unasyn 1.5 g IV every 8 hr for total of 2 weeks. Recommend to recheck cultures after that time. If negative PICC line can be removed. Tobacco cessation also addressed. Patient will be provided nicotine patch. Recommend follow up with primary care physician in 2-3 days. Follow up with Infectious Disease, Dr. Cruz in 2 weeks. Follow up with career development consultant, Dr. Minor in 2 weeks. Return to ER for worsening condition. Weekly CBC, CMP, ESR, and CRP. Dose to be adjusted renally. Weekly repeat cultures once antibiotics are complete. PICC line care. PICC line to be discontinued once antibiotics completed as recommended above. Follow up with psychiatrist, Dr. Combs in 2 weeks. Vital Signs/Physical Exam: Temp Pulse Resp BP Pulse Ox 98.0 F 84 16 153/96 H 92 01/18/20 08:00 01/18/20 08:00 01/18/20 08:50 01/18/20 08:00 01/18/20 08:50 General: Alert, In no apparent distress HEENT: Atraumatic Neck: Supple Respiratory: Clear to auscultation bilaterally, Normal air movement Cardiovascular: Normal pulses, Regular rate/rhythm Gastrointestinal: Normal bowel sounds, Soft and benign, Non-distended Neurological: Normal speech, Normal strength at 5/5 x4 extr, Normal tone Laboratory Data at Discharge: WBC 8.4 K/uL (4.3-10.9) D 01/16/20 06:05 Hgb 10.1 g/dL (13.6-17.9) L 01/16/20 06:05 Hct 30.8 % (39.6-49.0) L 01/16/20 06:05 Plt Count 429 K/uL (152-406) H D 01/16/20 06:05 Sodium 142 mmol/L (136-145) 01/18/20 05:08 Potassium 3.5 mmol/L (3.5-5.1) 01/18/20 05:08 BUN 12 mg/dL (7-18) 01/18/20 05:08 Creatinine 0.75 mg/dL (0.55-1.3) 01/18/20 05:08 Glucose 114 mg/dL (74-106) H 01/18/20 05:08 Total Bilirubin 0.3 mg/dL (0.2-1.0) 01/14/20 05:36 AST 24 U/L (15-37) 01/14/20 05:36 ALT 19 U/L (12-78) 01/14/20 05:36 Alkaline Phosphatase 114 U/L (45-117) 01/14/20 05:36 Home Medications: Gabapentin [Neurontin] 800 mg PO TID 06/10/19 Insulin 70/30 NPH/Reg Human [Novolin 70/30*] 30 unit SQ BEDTIME 06/10/19 Insulin 70/30 NPH/Reg Human [Novolin 70/30*] 50 unit SQ DAILY 06/10/19 Diltiazem Tab [Cardizem Tab*] 60 mg PO Q6HR #30 tab 06/12/19 Ampicillin/Sulbact [Unasyn] 1.5 gm IV Q8HR #1 vial 01/17/20 Collagenase [Santyl Ointment*] 1 appl TOP DAILY #1 tube 01/17/20 Duloxetine HCl [Cymbalta] 60 mg PO BID #60 01/17/20 Ensure High Protein 237 ml PO BID can 01/17/20 Lidocaine 4% Patch [Lidoderm 5% Patch*] 1 patch TOP BEDTIME #7 patch 01/17/20 Mirtazapine [Remeron*] 15 mg PO BEDTIME #30 tab 01/17/20 Nicotine [Nicoderm*] 21 mg TD BEDTIME #30 patch.td24 01/17/20 New Medications: Duloxetine HCl [Cymbalta] 60 mg PO BID #60 Lidocaine 4% Patch [Lidoderm 5% Patch*] 1 patch TOP BEDTIME #7 patch Nicotine [Nicoderm*] 21 mg TD BEDTIME #30 patch.td24 Mirtazapine [Remeron*] 15 mg PO BEDTIME #30 tab Collagenase [Santyl Ointment*] 1 appl TOP DAILY #1 tube Ampicillin/Sulbact [Unasyn] 1.5 gm IV Q8HR #1 vial Patient Discharge Instructions: Follow up with primary care physician in 2-3 days. Follow up with infectious disease doctor Anthony in 2 weeks. Follow up with career development consultant Dr. Abel in 2 weeks. Follow up with psychiatrist Dr. Combs in 2 weeks. Return to ER for worsening condition. Weekly CBC CMP ESR and CRP dose to be adjusted renally. Repeat cultures once antibiotics are complete. PICC line care. PICC line to be discontinued once antibiotics completed Diet: ADA Activity: Fall precautions Time spent managing pt's care (in minutes): 55
--- NOTE | 2020-01-18 13:50 | P.PN ---
Date of Service: 01/18/20 Subjective: The patient is a 34-year-old male with bacteremia positive for GPC currently being treated with Unasyn. Patient examined at bedside. Patient reports pain to right buttock improving, good appetite and denies nausea and fever. Reports two diarrhea episodes today. Patient to be discharged to [place] for continued care with IV Unasyn for total of 2 weeks. Objective: Temp Pulse Resp BP Pulse Ox 98.0 F 84 16 153/96 H 92 01/18/20 08:00 01/18/20 08:00 01/18/20 13:31 01/18/20 08:00 01/18/20 13:31 Labs: Na 142, WBC 8.4, Hgb 10.1, Hct 30.8 ROS: General: Awake, alert, oriented, lying in bed CV: S1, S2 RESP: Clear to auscultation ABD: Round, soft Extremities: Right BKA, no edema Skin: Right buttock abscess surgical incision s/p I&D on 01/10, dressing CDI, stephon area with no erythema or warmth. Right knee trauma wound from prosthetic, dressing CDI. Assessment and plan: Bacteremia secondary to GPC Leukocytosis resolved 01/17 Chest x-ray negative Blood Cultures 01/10 positive for Strep Aglactiae Wound Cultures 01/10 positive for Enterococcus Faecalis Right buttock abscess s/p I&D 01/10, continue to pack with iodoform gauze daily Right knee trauma wound, continue Santyl daily Antibiotic treatment, Unasyn 1.5g q8h for total of two weeks Plan to discharge to [place] [facility] Will continue to monitor Patient examine and discussed with Dr. Cruz.
[2020-01-18] MEDS: LIDOCAINE 4% PATCH TOP SCH (20:48)
[2020-01-18] MEDS: NICOTINE 21 MG/PAT TD SCH (20:49)
[2020-01-18] MEDS: LACTOBACILLUS/ACIDOPHILUS TAB PO SCH (20:49)
[2020-01-18] MEDS: MIRTAZAPINE 15 MG TAB PO SCH (20:49)
[2020-01-19] MEDS: HYDROCODONE/APAP 7.5/325 MG TAB PO PRN ×3 (00:02→11:19)
[2020-01-19] MEDS: AMPICILLIN/SULBACT 1.5 GM in NA CHLORIDE 0.9% 100 ML IVPB SCH ×2 (00:06→10:35)
--- NOTE | 2020-01-19 08:25 | CON ---
Date of Consultation: 01/13/2020 Type Of Service: Consult. Chief Complaint: Severe depression with possible suicidal ideation/attempt. History Of Present Illness: Mr. Rudy Mcdowell is a 34-year-old male presents with signific ant psychiatric history and multiple psychiatric hospitalizations . Patient was admitted _ at [facility] on January 12, 2020 on account of right buttock pain and swelling. He is noted to have multiple medical history including hypertension, diabetes, status post right below- knee amputation 2 years ago, and hyperlipidemia. During admission, patient was found to be severely depressed, hence consulted. On evaluation, patient states that he is frustrated by his medical compl ications, hence he has been feeling very depressed for the past couple of weeks, described his presen t symptoms as depressed mood for the most part of the day, feeling hopeless and helpless, anhedonia, lack of energy, significant psychomotor retardation out of bed, hence missed multiple dose s of his insulin depressed. He, however, denies having suicide thoughts or trying to hurt himself. States he lives alone and lack of adequate psychosocial support. Says he sees a psychiatr ist at [facility], gets monthly injection of Invega Sustenna and dose of Cymbalta 3 0 mg in a.m. and 60 at bedtime. Says he has been taking his Cymbalta, but is due for IM Invega Suste nna by 19 of January. Patient is single, has no children. Denies psychotic symptoms. No bipolar sympt oms such as hypomanic episode. Patient was noted to be tearful during evaluation, stating he misses his family and he does feel a bit better whenever he is with them. Objective: Vital Signs: Blood pressure 153/71, pulse is 108, temperature 98.7, O2 saturation on yasmany m air is 99%, respiratory rate is 16. Mental Status: Revealed a well-nourished male, dressed in hospital gown, with fair grooming and hygiene. Has right below knee amputation with dressing over anterior aspect of stump. He is al ert and oriented x3, found to be tearful, specially cooperative. Mild psychomotor agitation. Speech is spontaneous. Normal rate, rhythm, and volume . Memory and concentration is fair. Moo d is depressed. Affect is mood congruent, full range. Thought process is linear, at times circumsta ntial. Thought content, no delusional thinking. No suicidal or homicidal ideation. No obsession or rumination . No auditory or visual hallucination. . Insight, judgment, impuls e control are fair. Fund of knowledge, average. Language skills, fair. Assessment: A 34-year-old male with multiple medical pathologies and significant psychiatri c history, admitted for right buttock cellulitis, poorly-controlled diabetes due to severe depression. Patient denies being suicidal significant depressive symptoms. Diagnoses: 1.Bipolar disorder, depressed type, severe, without psychotic features. 2.Major depressive disorder. 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 Plan: 1.Recommend increasing Cymbalta from 90 to 120. 2.Recommend Invega Sustenna. 3.Recommend social work to have home care for med management . 4.Patient to follow up with his psychiatrist 1 week after discharge. Discussed recommendation and t reatment team. Spent 45 minutes in patient evaluation, reviewing patient's charts, and discussion with other managem ent team. SHIV/NAIMA Voice ID: [id number] Report ID: [id number]
[2020-01-19] MEDS: COLLAGENASE 30 GM OINTMENT TOP SCH (09:00)
[2020-01-19] MEDS: ENSURE HIGH PROTEIN 237 ML CAN PO SCH (09:00)
[2020-01-19] MEDS: INSULIN -REGULAR HUMAN 50 UNIT/0.5 ML ML SQ SCH ×2 (10:36→11:30)
[2020-01-19] MEDS: INSULIN 70/30 100 UNITS/ML SQ SCH (10:37)
[2020-01-19] MEDS: ENOXAPARIN 40 MG/0.4 ML SQ SCH (10:38)
[2020-01-19] MEDS: SODIUM BICARB 325 MG TAB PO SCH (10:38)
[2020-01-19] MEDS: DULOXETINE 30 MG CAP PO SCH (10:39)
[2020-01-19] MEDS: LACTOBACILLUS/ACIDOPHILUS TAB PO SCH (10:39)
[2020-01-19] MEDS: GABAPENTIN 400 MG CAP PO SCH (10:39)
[2020-01-19 12:11] LABS: C.diff Antigen/Toxin Ag neg : Tox neg (NEG : NEG)
[2020-01-19 13:50] VITALS: BP 140/84; TEMP 97.1
== END 2020-01-19 13:26 | DRG 871 ==
LOC: ER 13:03 → ERHOLD 17:11 → 3RD-ICU 19:42 → OBSVTOIN 01-12 09:32 → 2ND 01-12 17:29
PROVIDERS: ADMIT Internal Medicine; ATTEND Family Medicine
PROC: 0H98XZZ Drainage of Buttock Skin, External Approach (ICD-10-PCS; principal; 2020-01-12)
PROC: 3E0U33Z Introduction of Anti-inflammatory into Joints, Percutaneous Approach (ICD-10-PCS; 2020-01-14)
PROC: 02HV33Z Insertion of Infusion Device into Superior Vena Cava, Percutaneous Approach (ICD-10-PCS; 2020-01-14)
DX: A40.1 Sepsis due to streptococcus, group B (principal); E11.10 Type 2 diabetes mellitus with ketoacidosis without coma; L02.31 Cutaneous abscess of buttock; L03.317 Cellulitis of buttock; L03.116 Cellulitis of left lower limb; E87.1 Hypo-osmolality and hyponatremia; N17.9 Acute kidney failure, unspecified; F33.2 Major depressive disorder, recurrent severe without psychotic features; Z79.4 Long term (current) use of insulin; E11.51 Type 2 diabetes mellitus with diabetic peripheral angiopathy without gangrene; Z89.521 Acquired absence of right knee; Z91.128 Patient's intentional underdosing of medication regimen for other reason; Z91.14 Patient's other noncompliance with medication regimen; Z88.1 Allergy status to other antibiotic agents; Z88.5 Allergy status to narcotic agent; Z79.891 Long term (current) use of opiate analgesic; Z79.899 Other long term (current) drug therapy; E11.40 Type 2 diabetes mellitus with diabetic neuropathy, unspecified; Z89.422 Acquired absence of other left toe(s); E66.9 Obesity, unspecified; Z68.31 Body mass index [BMI] 31.0-31.9, adult; E11.621 Type 2 diabetes mellitus with foot ulcer; L97.509 Non-pressure chronic ulcer of other part of unspecified foot with unspecified severity; F17.210 Nicotine dependence, cigarettes, uncomplicated; E87.6 Hypokalemia; E11.22 Type 2 diabetes mellitus with diabetic chronic kidney disease; I12.9 Hypertensive chronic kidney disease with stage 1 through stage 4 chronic kidney disease, or unspecified chronic kidney disease; B96.89 Other specified bacterial agents as the cause of diseases classified elsewhere; E11.65 Type 2 diabetes mellitus with hyperglycemia; M19.012 Primary osteoarthritis, left shoulder; N18.3 Chronic kidney disease, stage 3 (moderate); B95.2 Enterococcus as the cause of diseases classified elsewhere; M25.512 Pain in left shoulder; Z60.2 Problems related to living alone; F25.9 Schizoaffective disorder, unspecified
CPT/HCPCS: 36415; 36569; 71045; 76770; 76881; 80048; 80053; 81003; 81015; 82010; 82570; 82805; 82947; 83605; 84145; 84156; 84300; 84443; 85025; 86140; 87040; 87070; 87075; 87077; 87081; 87086; 87088; 87186; 87205; 87324; 87449; 87804; 89055; 93005; 93306; 96361; 96365; 96372; 96375; 99285; G0378; J0295; J0878; J1170; J1650; J1815; J2001; J2270; J2405; J2543; J3301; J3590; J7030

== ENCOUNTER 2020-04-15 17:33 | Emergency (ER) | payer OTHER ==
--- OUTSIDE RECORDS SUMMARY | 2020-04-15 17:35 | XMS REPORT | Clinical Summary ---
:1985 Author Organization [facility] Address [address] [place] [id number] Care Team Providers Name Role Phone Asked, No Pcp Primary Care Provider Unavailable Allergies Active Allergy Reactions Severity Noted Date Comments Clindamycin GI Intolerance 11/12/2018 Headache, Jeremias sea/Vomiting Meperidine GI Intolerance 11/12/2018 Headache, Jeremias sea/Vomiting Morphine GI Intolerance 11/12/2018 Headache, Jeremias sea/Vomiting Vancomycin GI Intolerance 11/12/2018 Headache, Jeremias sea/Vomiting Medications Medication Sig Dispensed Refills Start Date End Date Status gabapentin Take 800 mg by 0 Acti ve (NEURONTIN) 800 mg mouth 3 (three) tablet times a day. HYDROcodone-acetamino Take 1 tablet by 0 Active phen (NORCO) 10-325 mouth every 6 (six) mg per tablet hours as needed for moderate pain. lisinopril Take 20 mg by mouth 0 Active (PRINIVIL,ZESTRIL) 20 daily. mg tablet Active Problems Problem Noted Date Hypotension 11/12/2018 Immunizations Name Administration Dates Next Due FLUCELVAX [...] six or more drinks on one occasion? No t asked Sex Assigned at Date Recorded Not on file Job Start Date Occupation Industry Not on file Not on file Not on file Travel History Travel Start Travel End No recent travel history available. Last Filed Vital Signs Not on file Plan of Treatment Health Maintenance Due Date Last Done Comments DIABETIC RETINAL EYE EXAM 1984 DIABETIC FOOT EXAM 1994 URINE MICROALBUMIN 1994 INFLUENZA VACCINE 04/15/2020 11/13/2018 Results Not on fileafter 04/15/2019 Additional Health Concerns Infection Noted Time Resolved Time C.Difficile (E) 11/17/2018 3:38 PM DATA OFFICER Insurance Payer Benefit Plan / Subscriber ID Effective Dates Phone Addre ss Type Group MEDICARE MEDICARE PART A xxxxxxxxxxx 2008-Present [employer] Medicare AND B MEDICAID MEDICAID xxxxxxxxx 2011-Present Med icaid [id number] Advance Directives For more information, please contact: [phone] Type Date Recorded Patient Program Coordinator For Residence Life Explanati on Advance Directives, Living Will 11/12/2018 5:45 AM and Medical Power of Pathology Laboratory Aide
--- OUTSIDE RECORDS SUMMARY | 2020-04-15 17:39 | XMS REPORT | Continuity of Care Document ---
:1985 Author Organization [facility] t Address [address] [place] [address] Care Team Providers Name Role Phone UNKNOWN Primary Care Physician Unavailable DR SHERRY Attending Clinician Unavailable TIBURCIO PIERCE M.D. Attending Clinician Unavailable DANYELLE HAND M.D. Attending Clinician Unavailable KHAI GILLETTE M.D. Attending Clinician Unavailable DR SHERRY Admitting Clinician Unavailable TIBURCIO PIERCE M.D., Celia Admitting Clinician Unavailable DANYELLE HAND M.D., K Admitting Clinician Unavaila KHAI Baldwin M.D., O Admitting Clinician Unavailable Problems Condition Condition Condition Status Onset Resolution Last Treating Co mments Source Name Details Category Date Date Treatment Clinician Date Hypotensio Hypotensio Disease Active [place] 2-28 Methodi 00:00: st 00 Allergies, Adverse Reactions, Alerts Allergy Allergy Status Severity Reaction(s) Onset Inactive Treating Comm ents Source Name Type Date Date Clinician Clindamy Propensi Active GI Headache, Julio ston elzbieta ty to Intolerance 2-28 Nausea/Vo Me thodi adverse 00:00: miting st reaction 00 s to drug Meperidi Propensi Active GI 2018- Headache, Julio ston ne ty to Intolerance 2-28 Nausea/Vo Me thodi adverse 00:00: miting st reaction 00 s to drug Morphine Propensi Active GI Headache, Julio ston ty to Intolerance 2-28 Nausea/Vo Me thodi adverse 00:00: miting st reaction 00 s to drug Vancomyc Propensi Active GI Headache, Julio ston in ty to Intolerance 2-28 Nausea/Vo Me thodi adverse 00:00: miting st reaction 00 s to drug Social History Social Habit Start Date Stop Date Quantity Comments Source History of Cigarette Smoker [place] [facility] tobacco use History [facility] Alcohol Std Drinks History [facility] Alcohol Binge Sex Assigned At [place] [facility] Alcohol intake 2018-11-12 2018-11-12 Current [facility] thodist 00:00:00 00:00:00 non-drinker of alcohol (finding) History SDOH 2018-11-12 2018-11-12 1 [place] [facility] Alcohol Frequency 00:00:00 00:00:00 Smoking Status Start Date Stop Date Source Current every day smoker 2018-11-12 00:00:00 Julio st[place] [facility] Medications Ordered Filled Start Stop Current Ordering Indication Dosage Frequency Signature Comments Components Source Medication Medication Date Date Medication? Clinician (SIG) Name Name gabapentin Yes 800mg [id number] Take 800 [place] (NEURONTIN) 3-06 [id number] mg by M ethodi 800 mg 18:17: 3D mouth 3 st tablet 57 (three) times a day. HYDROcodone Yes 1{tbl} Q6H Take 1 [place] -acetaminop 3-06 tablet by Met austin snow (NORCO) 18:17: mouth st 10-325 mg 57 every 6 per tablet (six) hours as needed for moderate pain. lisinopril Yes 20mg QD Take 20 mg [place] (PRINIVIL,Z 3-06 by mouth Meth lakia ESTRIL) 20 18:17: daily. st mg tablet 57 Immunizations Ordered Immunization Filled Immunization Date Status Commen ts Source Name Name FLUCELVAX QUAD PF 2018-11-13 [facility] 00:00:00 Islam Procedures This patient has no known procedures. Plan of Care Planned Activity Planned Date Details Comments Source Future Scheduled 2020-04-15 INFLUENZA VACCINE [place] [facility] 00:00:00 [code = INFLUENZA VACCINE] Future Scheduled 1994 DIABETIC FOOT EXAM [place] [facility] 00:00:00 [code = DIABETIC FOOT EXAM] Future Scheduled 1994 URINE MICROALBUMIN [place] [facility] 00:00:00 [code = URINE MICROALBUMIN] Future Scheduled 1984 DIABETIC RETINAL EYE Julio [facility] Test 00:00:00 EXAM [code = DIABETIC RETINAL EYE EXAM] Encounters Start End Encounter Admission Attending Care Care Encounter Source Date/Time Date/Time Type Type Clinicians Facility Department ID 2017-12-16 Inpatient [facility] [id number] [facility]. 09:23:00 [facility] 2019-08-12 2019-08-17 Inpatient PRAKASH MORLEY [facility] [id number] [facility]40[facility]00 [facility] 2017-07-02 2017-07-07 Inpatient Luis Alfredo PIERCE [facility] [id number] 14:57:00 22:44:00 [facility] Results Test Description Test Time Test Comments Results Result Comments Source ANAEROBIC CULTURE 2019-08-21 14:27:00 Test Item Value Reference Range Interpretation Comme nts Culture Observations (test code = COB1) NO ANAEROBES ISOLATED AT 5 DAYS. CULTURE HELD FOR 5 DAYS ANAEROBIC [id number] 14:27:00 Test Item Value Reference Range Interpretation Comments Culture Observations NO ANAEROBES ISOLATED (test code = COB1) AT 5 DAYS. CULTURE HELD FOR 5 DAYS WOUND/SKIN/ABS.&GRAMSTAIN [id number] 10:33:00 Test Item Value Reference Range Interpretation Comments Direct Exam FEW WHITE BLOOD CELLS (test code = SEEN DE1) Direct Exam NO ORGANISMS SEEN (test code = DE2) Isolate 1 Coagulase negative REFER TO #[id number] (test code = staphylococcus FOR IDENTIFIC ATION ISO1) AND SUSCEPTIBIL ITY WOUND/SKIN/ABS.&GRAMSTAIN [id number] 10:32:00 Test Item Value Reference Range Interpretation Comments Direct Exam (test code NO WHITE BLOOD CELLS = DE1) SEEN Direct Exam (test code NO ORGANISMS SEEN = DE2) Isolate 1 (test code = Kocuria kristinae ISO1) GLUCOMETER GLUCOSE- LAB USE [id number] 11:30:00 Test Item Value Reference Range Interpretation Comments GLUCOMETER (test code 275 mg/dL 70-100 H CLEANE D METERMeter ID: = GMG) [id number] tor: 9888 LORETTA CALDERON TTSUSAN BLOOD [id number] 07:35:00 Test Item Value Reference Range Interpretation Comments Culture Observations (test NO GROWTH AFTER 5 code = COB1) DAYS BASIC METABOLIC PANEL *WW*2019-08-17 06:22:00 Test Item Value Reference Range Interpretation Comments GLUCOSE (test code = 06D) 170 mg/dL 75-100 H SODIUM (test code = 01A) 135 mmol/L 136-145 L POTASSIUM (test code = 01B) 4.2 mmol/L 3.6-5.1 CHLORIDE (test code = 04A) 103 mmol/L 98-107 CO2 (test code = 02A) 25 mmol/L 22-32 ANION GAP (test code = ANG) 11.2 mmol/L BUN (test code = 05D) 11 mg/dL 7-18 CREATININE (test code = 03E) 1.0 mg/dL 0.7-1.3 BUN/CREA (test code = BCR) 11 12-20 L CALCIUM (test code = 09D) 8.3 mg/dL 8.3-9.5 GLUCOMETER GLUCOSE- LAB USE [id number] 06:05:00 Test Item Value Reference Range Interpretation Comments GLUCOMETER (test code 173 mg/dL 70-100 H CLEANE D METERMeter ID: = GMG) [id number] tor: 9910 [address] CBC (INCLUDES AUTOMATED DIFFERENTIAL)*[id number] 05:47:00 Test Item Value Reference Range Interpretation Comments WBC (test code = WBC) 8.9 10\S\3/uL 4.5-11.0 RBC (test code = RBC) 4.21 10\S\6/uL 4.30-5.70 L HGB (test code = HBG) 10.8 g/dL 14.0-18.0 L HCT (test code = HCT) 35.1 % 35.0-46.0 MCV (test code = MCV) 83.4 fL 80.0-94.0 MCH (test code = MCH) 25.7 pg 27.0-31.0 L MCHC (test code = MCHC) 30.8 g/dL 32.0-36.0 L RDW (test code = RDW) 14.8 % 11.5-14.5 H PLT (test code = PLT) 245 10\S\3/uL [...] NO NO RBC MORPH (test code = NORMAL WRBCMOR) XR FOOT LEFT 1 OR 2 VIEW [...] 2019-08-16 20:11:00 Test Item Value Reference Range Interpretation Comments GLUCOMETER (test code 257 mg/dL 70-100 H CLEANE D METERMeter ID: = GMG) [id number] tor: 9999 JAYASREE VASUPILLAI GLUCOMETER GLUCOSE- LAB USE [id number] 16:17:00 Test Item Value Reference Range Interpretation Comments GLUCOMETER (test 306 mg/dL 70-100 H DAILY MAINT ENANCEMeter code = GMG) ID: [id number] perator: [id number] JAYASREE V ASUPILLAI GLUCOMETER GLUCOSE- LAB USE [id number] 12:08:00 Test Item Value Reference Range Interpretation Comments GLUCOMETER (test code = 241 mg/dL 70-100 H Mete r ID: GMG) [id number] tor: 9830 OZZIE TAA GLUCOMETER GLUCOSE- LAB USE [id number] 09:52:00 Test Item Value Reference Range Interpretation Comments GLUCOMETER (test 239 mg/dL 70-100 H DAILY MAINT ENANCEMeter code = GMG) ID: [id number] perator: 9999 JAYASREE V ASUPILLAI COMPREHENSIVE METABOLIC LARA *WW*2019-08-16 07:00:00 Test Item Value Reference Range Interpretation Comments GLUCOSE (test code = 06D) 182 mg/dL 75-100 H SODIUM (test code = 01A) 137 mmol/L [...] (test code = 08D) 2.4 g/dL 3.5-4.8 L GLOBULIN (test code = GLB) 4.2 g/dL 1.5-3.8 H ALB/GLOB (test code = AGRR) 0.6 1.0-2.6 L ALK PHOS (test code = 35A) 126 IU/L 42-121 H AST (test code = 30A) 25 IU/L <=42 ALT (test code = 31A) 31 IU/L <=78 GLUCOMETER GLUCOSE- LAB USE [id number] 05:14:00 Test Item Value Reference Range Interpretation Comments GLUCOMETER (test code 194 mg/dL 70-100 H CLEANE D METERMeter ID: = GM) [id number] tor: 9581 LEANNE CAMILA NSON PRO TIME AND PTT *WW*2019-08-16 02:47:00 Test Item Value Reference Range Interpretation Comments PT (test code = 12.0 s 9.8-13.6 TT) INR (test code = 1.0 INR) INRH (test code = SUGGESTED INRH) THERAPEUTIC RANGE FOR INR: 2.5 - 3.5 For Patients with Prosthetic Valves or Patients with recurrent Thromboembolic Events 2.0 - 3.0 For Most Other Applications PTT (test code = 37.4 s 20.2-38.0 PTT) PTTH (test code = To monitor the PTTH) effectiveness of heparin, we offer the Anti-Xa (Heparin Assay). It can be used for either unfractionated or LMW Heparin. Order Code is ANTI-XA CBC (INCLUDES AUTOMATED DIFFERENTIAL)*[id number] 02:26:00 Test Item Value Reference Range Interpretation Comments WBC (test code = WBC) 7.7 10\S\3/uL 4.5-11.0 RBC (test code = RBC) 3.97 10\S\6/uL 4.30-5.70 L HGB (test code = HBG) 10.2 g/dL 14.0-18.0 L HCT (test code = HCT) 31.5 % 35.0-46.0 L MCV (test code = MCV) 79.3 fL 80.0-94.0 L MCH (test code = MCH) 25.7 pg 27.0-31.0 L MCHC (test code = MCHC) 32.4 g/dL 32.0-36.0 RDW (test code = RDW) 14.4 % 11.5-14.5 PLT (test code = PLT) 327 10\S\3/uL 130-400 MPV (test code = MPV) 8.8 fL 9.4-12.4 L NEUTROP # (test code = NE#) 3.9 10\S\3/uL 2.0-8.0 LYMPH # (test code = LY#) 2.7 10\S\3/uL 1.2-4.0 MONOCYTE # (test code = MO#) 0.6 10\S\3/uL 0.0-1.1 EOSINOPH # (test code = EO#) 0.3 10\S\3/uL 0.0-0.7 BASOPHIL # (test code = BA#) 0.1 10\S\3/uL 0.0-0.3 IG # (test code = IG#) 0.04 10\S\3/uL 0.00-0.06 NRBC # (test code = NRBC#) 0.02 10\S\3/uL 0.00-0.01 H NEUTROPH % (test code = NE%) 50.7 % 35.0-73.0 LYMPH % (test code = LY%) 35.7 % 20.0-55.0 MONO % (test code = MO%) 8.0 % 2.5-10.0 EOSINOPH % (test code = EO%) 4.3 % 0.0-5.0 BASOPHIL % (test code = BA%) 0.8 % 0.0-2.0 IG % (test code = IG%) 0.5 % 0.0-0.8 NRBC% (test code = NRBC%) 0.3 % 0.0-0.2 H MANDIFF (test code = WMDIFF) NO NO RBC MORPH (test code = NORMAL WRBCMOR) GLUCOMETER GLUCOSE- LAB USE [id number] 20:26:00 Test Item Value Reference Range Interpretation Comments GLUCOMETER (test code 360 mg/dL 70-100 H CLEANE D METERMeter ID: = GMG) [id number] tor: 9588 DOC BABCOCKU GLUCOMETER GLUCOSE- LAB USE [id number] 16:22:00 Test Item Value Reference Range Interpretation Comments GLUCOMETER (test code = 246 mg/dL 70-100 H Mete r ID: GMG) [id number] tor: 9905 RICHARD NEVESO GLUCOMETER GLUCOSE- LAB USE [id number] 11:54:00 Test Item Value Reference Range Interpretation Comments GLUCOMETER (test code = 241 mg/dL 70-100 H Mete r ID: GMG) [id number] tor: 9924 OFELIA QUINTANA GLUCOMETER GLUCOSE- LAB USE [id number] 05:11:00 Test Item Value Reference Range Interpretation Comments GLUCOMETER (test 314 mg/dL 70-100 H DAILY MAINT ENANCEMeter code = GMG) ID: [id number] perator: [id number] JAYASREE V ASUPILLAI GLUCOMETER GLUCOSE- LAB USE [id number] 19:43:00 Test Item Value Reference Range Interpretation Comments GLUCOMETER (test 288 mg/dL 70-100 H DAILY MAINT ENANCEMeter code = GMG) ID: [id number] perator: 9999 JAYASREE V ASUPILLAI GLUCOMETER GLUCOSE- LAB USE [id number] 16:50:00 Test Item Value Reference Range Interpretation Comments GLUCOMETER (test 186 mg/dL 70-100 H DAILY MAINT ENANCEMeter code = GMG) ID: [id number] perator: [id number] OFELIA Angelo ICKERSON WOUND/SKIN/ABS.&GRAMSTAIN [id number] 11:53:00 Test Item Value Reference Interpretation Comments Range Culture ORGANISM UNDER Observations EVALUATION (test code = COB1) Isolate 1 (test Streptococcus A PENICILLIN AND code = ISO1) Group B AMPICILLIN ARE DRUGS OF CHOICE FOR TREATING BETA HEMOLYTIC STREPINFECTIONS . SUSCEPTIBILITY TESTING OF PENICILLINS AND OTHER BETA LACATAMSAP PROVED BY THE FDA FOR TREATING BETA HEMOLYTIC STREP INFECTIONS DOES NOT NEEDTO BE PERFO RMED ROUTINELY BECAU SE NONSUSCEPTIBILE ISOLATES ARE EXTREMELY RARE. Isolate 1 (test Streptococcus A PENICILLIN AND code = ISO11) Group B AMPICILLIN ARE DRUGS OF CHOICE FOR TREATING BETA HEMOLYTIC STREPINFECTIONS . SUSCEPTIBILITY TESTING OF PENICILLINS AND OTHER BETA LACATAMSAP PROVED BY THE FDA FOR TREATING BETA HEMOLYTIC STREP INFECTIONS DOES NOT NEEDTO BE PERFO RMED ROUTINELY BECAU SE NONSUSCEPTIBILE ISOLATES ARE EXTREMELY RARE. GLUCOMETER GLUCOSE- LAB USE [id number] 11:51:00 Test Item Value Reference Range Interpretation Comments GLUCOMETER (test code = 181 mg/dL 70-100 H Mete r ID: GMG) [id number] tor: 9905 RICHARD COOK MACHO GLUCOMETER GLUCOSE- LAB USE [id number] 06:08:00 Test Item Value Reference Range Interpretation Comments GLUCOMETER (test code = 264 mg/dL 70-100 H Mete r ID: GMG) [id number] tor: 2014 EVELIN MENDOZAO GLUCOMETER GLUCOSE- LAB USE [id number] 19:56:00 Test Item Value Reference Range Interpretation Comments GLUCOMETER (test code 278 mg/dL 70-100 H CLEANE D METERMeter ID: = GMG) [id number] tor: 9588 DOC SHARIF GLUCOMETER GLUCOSE- LAB USE [id number] 16:30:00 Test Item Value Reference Range Interpretation Comments GLUCOMETER (test code = 456 mg/dL 70-100 HH Mete r ID: GMG) [id number] tor: 9169 BRI MIRT O GLUCOMETER GLUCOSE- LAB USE [id number] 12:08:00 Test Item Value Reference Range Interpretation Comments GLUCOMETER (test code = 302 mg/dL 70-100 H Mete r ID: GMG) [id number] tor: 9924 OFELIA MARIANO MRI LOW EXT NON JOINT W/WO CON*WW*2019-08-13 [...] with nonunion atthe second metatarsal fracture. BLOOD [id number] 07:42:00 Test Item Value Reference Interpretation Comments Range Culture POSITIVE Observations BLOOD (test code = CULTURE COB1) Culture 1 OF 4 BOTTLES Observations (test code = COB2) Isolate 1 (test Coagulase negative POSSIB LE code = ISO1) staphylococcus CONTAMINATION IF SUSCEPTIBILITY NEEDED, PLEASE NOTIFY MICRO WI THIN 24 HOURS COMPREHENSIVE METABOLIC LARA *WW*2019-08-13 06:39:00 Test Item Value Reference Range Interpretation Comments GLUCOSE (test code = 06D) 339 mg/dL 75-100 H SODIUM (test code = 01A) 130 mmol/L 136-145 L POTASSIUM (test code = 01B) 3.8 mmol/L 3.6-5.1 CHLORIDE (test code = 04A) 104 mmol/L 98-107 CO2 (test code = 02A) 19 mmol/L 22-32 L ANION GAP (test code = ANG) 10.8 mmol/L BUN (test code = 05D) 14 mg/dL 7-18 CREATININE (test code = 03E) 1.1 mg/dL 0.7-1.3 BUN/CREA (test code = BCR) 13 12-20 CALCIUM (test code = 09D) 8.0 mg/dL 8.3-9.5 L BILI TOTAL (test code = 11A) 0.4 mg/dL 0.2-1.0 PROTEIN (test code = 07D) 6.2 g/dL 6.4-8.2 L ALBUMIN (test code = 08D) 2.1 g/dL 3.5-4.8 L GLOBULIN (test code = GLB) 4.1 g/dL 1.5-3.8 H ALB/GLOB (test code = AGRR) 0.5 1.0-2.6 L ALK PHOS (test code = 35A) 114 IU/L 42-121 AST (test code = 30A) 23 IU/L <=42 ALT (test code = 31A) 18 IU/L <=78 CBC (INCLUDES AUTOMATED DIFFERENTIAL)*[id number] 05:59:00 Test Item Value Reference Range Interpretation Comments WBC (test code = WBC) 9.0 10\S\3/uL 4.5-11.0 RBC (test code = RBC) 3.92 10\S\6/uL 4.30-5.70 L HGB (test code = HBG) 10.0 g/dL 14.0-18.0 L HCT (test code = HCT) 32.8 % 35.0-46.0 L MCV (test code = MCV) 83.7 fL 80.0-94.0 MCH (test code = MCH) 25.5 pg 27.0-31.0 L MCHC (test code = MCHC) 30.5 g/dL 32.0-36.0 L RDW (test code = RDW) 15.1 % 11.5-14.5 H PLT (test code = PLT) 276 10\S\3/uL [...] NO NO RBC MORPH (test code = NORMAL WRBCMOR) GLUCOMETER GLUCOSE- LAB USE [id number] 04:53:00 Test Item Value Reference Range Interpretation Comments GLUCOMETER (test code = 374 mg/dL 70-100 H Mete r ID: GMG) [id number] tor: 9908 INO KHOW DEANNA GLUCOMETER GLUCOSE- LAB USE [id number] 23:49:00 Test Item Value Reference Range Interpretation Comments GLUCOMETER (test code = 192 mg/dL 70-100 H Mete r ID: GMG) [id number] tor: 4845 [facility] GLUCOMETER GLUCOSE- LAB USE [id number] 19:32:00 Test Item Value Reference Range Interpretation Comments GLUCOMETER (test code = 183 mg/dL 70-100 H Mete r ID: GMG) [id number] tor: 9908 INO KHOW DEANNA GLUCOMETER GLUCOSE- LAB USE [id number] 16:43:00 Test Item Value Reference Range Interpretation Comments GLUCOMETER (test code = 244 mg/dL 70-100 H Mete r ID: GMG) [id number] tor: 9924 OFELIA QUINTANA GLUCOMETER GLUCOSE- LAB USE [id number] 12:15:00 Test Item Value Reference Range Interpretation Comments GLUCOMETER (test 331 mg/dL 70-100 H DAILY MAINT ENANCEMeter code = GMG) ID: [id number] perator: 9924 OFELIA BASHIR GLUCOMETER GLUCOSE- LAB USE [id number] 08:40:00 Test Item Value Reference Range Interpretation Comments GLUCOMETER (test code 350 mg/dL 70-100 H Meter ID: = GMG) [id number] tor: 3103 MAYRA NATHANUEVA COMPREHENSIVE METABOLIC LARA *WW*2019-08-12 06:38:00 Test Item Value Reference Range Interpretation Comments GLUCOSE (test code = 06D) 433 mg/dL 75-100 H SODIUM (test code = 01A) 129 mmol/L 136-145 L POTASSIUM (test code = 01B) 3.3 mmol/L 3.6-5.1 L CHLORIDE (test code = 04A) 100 mmol/L 98-107 CO2 (test code = 02A) 21 mmol/L 22-32 L ANION GAP (test code = ANG) 11.3 [...] (test code = 08D) 2.5 g/dL 3.5-4.8 L GLOBULIN (test code = GLB) 4.3 g/dL 1.5-3.8 H ALB/GLOB (test code = AGRR) 0.6 1.0-2.6 L ALK PHOS (test code = 35A) 135 IU/L 42-121 H AST (test code = 30A) 9 IU/L <=42 ALT (test code = 31A) 18 IU/L <=78 CBC (INCLUDES AUTOMATED DIFFERENTIAL)*[id number] 05:50:00 Test Item Value Reference Range Interpretation Comments WBC (test code = WBC) 10.1 10\S\3/uL 4.5-11.0 RBC (test code = RBC) 4.07 10\S\6/uL 4.30-5.70 L HGB (test code = HBG) 10.2 g/dL 14.0-18.0 L HCT (test code = HCT) 32.0 % 35.0-46.0 L MCV (test code = MCV) 78.6 fL 80.0-94.0 L MCH (test code = MCH) 25.1 pg 27.0-31.0 L MCHC (test code = MCHC) 31.9 g/dL 32.0-36.0 L RDW (test code = RDW) 14.8 % 11.5-14.5 H PLT (test code = PLT) 282 10\S\3/uL [...] NO NO RBC MORPH (test code = NORMAL WRBCMOR) GLUCOMETER GLUCOSE- LAB USE [id number] 03:06:00 Test Item Value Reference Range Interpretation Comments GLUCOMETER (test code 497 mg/dL 70-100 HH Meter ID: = GMG) [id number] tor: 3103 MAYRA NATHANUEVA GLUCOMETER GLUCOSE- LAB USE [id number] 00:19:00 Test Item Value Reference Range Interpretation Comments GLUCOMETER (test code 515 mg/dL 70-100 HH Meter ID: = GMG) [id number] tor: 3103 MAYRA NATHANUEVA GLUCOMETER GLUCOSE- LAB USE [id number] 22:09:00 Test Item Value Reference Range Interpretation Comments GLUCOMETER (test code = 591 mg/dL 70-100 HH Mete r ID: GMG) [id number] tor: 9550 MARVIN DAVIES URINALYSIS WITH MICRO *WW*2019-08-11 20:47:00 Test Item Value Reference Range Interpretation Comments COLOR (test code = COLU) YELLOW YELLOW CLARITY (test code = CLA) SLT HAZY CLEAR A GLUCOSE UR (test code = UA GLUCOSE) 3+ NEGATIVE A BILI UR (test code = BILE) NEGATIVE NEGATIVE KETONES UR (test code = MAU) NEGATIVE NEGATIVE SP GRAVITY (test code = SPGR) <=1.005 1.005-1.030 PH UR (test code = PH) 6.0 4.5-8.0 PROTEIN UR (test code = PU) TRACE NEGATIVE A UROBIL UR (test code = UROQ) 0.2 EU/dL 0.2-1.0 NITRITE UR (test code = NITRITE) NEGATIVE NEGATIVE BLOOD UR (test code = UA BLOOD) 1+ NEGATIVE A LEUK ES UR (test code = LEUK) NEGATIVE NEGATIVE WBC UR (test code = UWBC) 1 /HPF 0-3 RBC UR (test code = URBC) 3 /HPF 0-2 H EPITH UR (test code = UEPC) NONE /LPF NONE BACTERIA UR (test code = UBACT) FEW /HPF NONE A CAST UR (test code = CAST) /LPF NONE CRYSTAL UR (test code = CRYU) / LPF NONE MUCUS UR (test code = MUC) / HPF NONE AMORPH UR (test code = SHANICE) / HPF NONE TRICH UR (test code = UTRICH) /HPF NONE YEAST UR (test code = UY) FEW /HPF NONE A SPERM UR (test code = USPERM) /HPF NONE COMPREHENSIVE METABOLIC LARA 2019-08-11 20:10:00 Test Item Value Reference Range Interpretation Comments GLUCOSE (test code = 06D) 771 mg/dL 75-100 HH SODIUM (test code = 01A) 125 mmol/L 136-145 L POTASSIUM (test code = 01B) 3.8 mmol/L 3.6-5.1 CHLORIDE (test code = 04A) 95 mmol/L 98-107 L CO2 (test code = 02A) 21 mmol/L 22-32 L ANION GAP (test code = ANG) 12.8 mmol/L BUN (test code = 05D) 15 mg/dL 7-18 CREATININE (test code = 03E) 1.6 mg/dL 0.7-1.3 H BUN/CREA (test code = BCR) 9 12-20 L CALCIUM (test code = 09D) 8.3 mg/dL 8.3-9.5 BILI TOTAL (test code = 11A) 0.3 mg/dL 0.2-1.0 PROTEIN (test code = 07D) 7.0 g/dL 6.4-8.2 ALBUMIN (test code = 08D) 2.6 g/dL 3.5-4.8 L GLOBULIN (test code = GLB) 4.4 g/dL 1.5-3.8 H ALB/GLOB (test code = AGRR) 0.6 1.0-2.6 L ALK PHOS (test code = 35A) 146 IU/L 42-121 H AST (test code = 30A) 11 IU/L <=42 ALT (test code = 31A) 17 IU/L <=78 CBC (INCLUDES AUTOMATED DIFFERENTIAL)*[id number] 19:52:00 Test Item Value Reference Range Interpretation Comments WBC (test code = WBC) 11.5 10\S\3/uL 4.5-11.0 H RBC (test code = RBC) 4.36 10\S\6/uL 4.30-5.70 HGB (test code = HBG) 11.2 g/dL 14.0-18.0 L HCT (test code = HCT) 34.1 % 35.0-46.0 L MCV (test code = MCV) 78.2 fL 80.0-94.0 L MCH (test code = MCH) 25.7 pg 27.0-31.0 L MCHC (test code = MCHC) 32.8 g/dL 32.0-36.0 RDW (test code = RDW) 15.0 % 11.5-14.5 H PLT (test code = PLT) 281 10\S\3/uL 130-400 MPV (test code = MPV) 9.9 fL 9.4-12.4 NEUTROP # (test code = NE#) 9.3 10\S\3/uL 2.0-8.0 H LYMPH # (test code = LY#) 1.3 10\S\3/uL 1.2-4.0 MONOCYTE # (test code = MO#) 0.8 10\S\3/uL 0.0-1.1 EOSINOPH # (test code = EO#) 0.0 10\S\3/uL 0.0-0.7 BASOPHIL # (test code = BA#) 0.0 10\S\3/uL 0.0-0.3 IG # (test code = IG#) 0.06 10\S\3/uL 0.00-0.06 NRBC # (test code = NRBC#) 0.00 10\S\3/uL 0.00-0.01 NEUTROPH % (test code = NE%) 81.0 % 35.0-73.0 H LYMPH % (test code = LY%) 11.0 % 20.0-55.0 L MONO % (test code = MO%) 7.0 % 2.5-10.0 EOSINOPH % (test code = EO%) 0.2 % 0.0-5.0 BASOPHIL % (test code = BA%) 0.3 % 0.0-2.0 IG % (test code = IG%) 0.5 % 0.0-0.8 NRBC% (test code = NRBC%) 0.0 % 0.0-0.2 MANDIFF (test code = WMDIFF) NO NO RBC MORPH (test code = NORMAL WRBCMOR) XR FOOT LEFT COMPLETE 3 VIEWS*WW*2019-08-11 19:20:34LOCATION: [id number]: 34-year-old male who presents with a nonhealing [...] see above comments for more details.POC Glucose, [id number] 07:22:00 Test Item Value Reference Range Interpretation Comments POC Glucose (test 161 mg/dL 70-115 H Notify RN or MDIf you code = POCGLUC) consider you r patient critically ill, the [facility] Accu-Chek InformII metershould not be used for Glucose determinations. Draw a venous Glucose and send to the Main Lab for Analysis. Comprehensive Metabolic [id number] 07:08:00 Test Item Value Reference Range Interpretation Comments Sodium (test code = 138 mmol/L 135-145 N NA) Potassium (test 4.8 mmol/L 3.5-5.1 N code = K) Chloride (test code 98 mmol/L 98-105 N = CL) Carbon Dioxide 27 mmol/L 22-29 N (test code = CO2) Glucose (test code 142 mg/dL 70-115 H = GLU) Blood Urea Nitrogen 32 mg/dL 6-20 H (test code = BUN) Creatinine (test 1.3 mg/dL 0.7-1.2 H code = CREAT) Calcium (test code 9.4 mg/dL 8.3-10.5 N = CA) Prot Total (test 6.7 g/dL 6.4-8.3 N code = TP) Albumin (test code 3.9 g/dL 3.5-5.2 N = ALB) A/G Ratio (test 1.4 Ratio code = AGRATIO) Globulin (test code 2.8 2.9-3.1 L = GLOB) Bili Total (test 0.2 mg/dL 0.1-0.9 N code = TBIL) Alk Phos (test code 94 U/L 40-129 N = APHOS) AST (test code = 11 U/L 1-40 N AST) ALT (test code = 14 U/L 1-41 N ALT) BUN/Creatinine 24.6 Ratio (test code = BCRATIO) Anion Gap (test 13 mmol/L 7-16 N code = AGAP) Estimated GFR (test >60 eGFR (es timated code = GFR) mL/min/1.73m2 Glomerular Pillo tration Rate) is an est imated value,calculate d from the patient's s abida creatinine usin g the MDRD equation.I t is NOT the patient 's actual GFR. The eGFR provides a more clinicallyusefu l measure of kidn ey disease than se rum creatinine alone.This calculation adrien es sex and race into account, if the informationis provided. If e race is not provided , and the patient isAfrican-Ameri can, multiply by 1.2 12. If sex is not prov ided, and thepatient is female, multipl y by 0.742. Results for patients <18 ye ars ofage have not been validated by e MDRD study and juanitoul d be interpretedwith caution.eGFR Re sult Interpretation: eGFR > or = 60 is in t he Normal RangeeGF R < 60 may mean kidney diseaseeGFR < 1 5 may mean kidney failureRange s recommended by the National Kidney Foundation,http ://nkd ep.nih.gov CBC with [id number] 06:48:00 Test Item Value Reference Range Interpretation Comments WBC (test code = WBC) 11.0 K/cumm 4.4-10.5 H RBC (test code = RBC) 5.24 M/cumm 4.10-5.70 N Hemoglobin (test code = HGB) 11.9 gm/dL 13.4-17.4 L Hematocrit (test code = HCT) 39.4 % 38.7-52.0 N MCV (test code = MCV) 75.2 fL 80-100 L MCH (test code = MCH) 22.8 pg 27.0-32.5 L MCHC (test code = MCHC) 30.3 g/dL 32.0-37.5 L RDW (test code = RDW) 15.6 % 11.5-14.5 H Platelet Count (test code = 416 K/cumm 140-440 N PLTCT) MPV (test code = MPV) 9.1 fL Diff Method (test code = DIFFM) Auto Neutrophil (test code = NEUT) 50.8 % 36-70 N Lymphocyte (test code = LYMPH) 40.9 % 12-44 N Monocyte (test code = MONO) 5.7 % 0-11 N Eosinophil (test code = EOS) 1.6 % 0-7 N Basophil (test code = BASO) 1.0 % 0-2 N Neutro Abs (test code = ANEUT) 5.6 K/cumm 1.6-7.4 N Lymph Abs (test code = ALYMPH) 4.5 K/cumm 0.5-4.6 N [place] Abs (test code = AMONO) 0.6 K/cumm 0.0-1.2 N Eos Abs (test code = AEOS) 0.18 K/cumm 0.00-0.74 N Baso Abs (test code = ABASO) 0.1 K/cumm 0.00-0.21 N Microcytosis (test code = MICRO) Slight Hypochromic (test code = HYPO) Slight POC Glucose, [id number] 19:07:00 Test Item Value Reference Range Interpretation Comments POC Glucose (test 227 mg/dL 70-115 H If you con cash sales audit clerk your code = POCGLUC) patient crit ically ill, the [place] Accu- Chek InformII meters hould not be used for Glu cose determinations. Draw a venous Glucose and send to the Main Lab for Analysis. POC Glucose, [id number] 16:11:00 Test Item Value Reference Range Interpretation Comments POC Glucose (test 266 mg/dL 70-115 H If you con cash sales audit clerk your code = POCGLUC) patient crit ically ill, the [place] Accu- Chek InformII meters hould not be used for Glu cose determinations. Draw a venous Glucose and send to the Main Lab for Analysis. POC Glucose, [id number] 11:36:00 Test Item Value Reference Range Interpretation Comments POC Glucose (test 69 mg/dL 70-115 L If you con cash sales audit clerk your code = POCGLUC) patient crit ically ill, the [place] Accu- Chek InformII meters hould not be used for Glu cose determinations. Draw a venous Glucose and send to the Main Lab for Analysis. POC Glucose, [id number] 07:45:00 Test Item Value Reference Range Interpretation Comments POC Glucose (test 234 mg/dL 70-115 H If you con cash sales audit clerk your code = POCGLUC) patient crit ically ill, the [place] Accu- Chek InformII meters hould not be used for Glu cose determinations. Draw a venous Glucose and send to the Main Lab for Analysis. POC Glucose, [id number] 19:15:00 Test Item Value Reference Range Interpretation Comments POC Glucose (test 148 mg/dL 70-115 H If you con cash sales audit clerk your code = POCGLUC) patient crit ically ill, the [place] Accu- Chek InformII meters hould not be used for Glu cose determinations. Draw a venous Glucose and send to the Main Lab for Analysis. POC Glucose, [id number] 15:37:00 Test Item Value Reference Range Interpretation Comments POC Glucose (test 133 mg/dL 70-115 H If you con cash sales audit clerk your code = POCGLUC) patient crit ically ill, the [place] Accu- Chek InformII meters hould not be used for Glu cose determinations. Draw a venous Glucose and send to the Main Lab for Analysis. POC Glucose, [id number] 11:10:00 Test Item Value Reference Range Interpretation Comments POC Glucose (test 203 mg/dL 70-115 H Notify RN or MDIf you code = POCGLUC) consider you r patient critically ill, the [place] Accu-Chek InformII metershould not be used for Glucose determinations. Draw a venous Glucose and send to the Main Lab for Analysis. POC Glucose, [id number] 07:29:00 Test Item Value Reference Range Interpretation Comments POC Glucose (test 261 mg/dL 70-115 H Notify RN or MDIf you code = POCGLUC) consider you r patient critically ill, the [place] Accu-Chek InformII metershould not be used for Glucose determinations. Draw a venous Glucose and send to the Main Lab for Analysis. POC Glucose, [id number] 19:32:00 Test Item Value Reference Range Interpretation Comments POC Glucose (test 226 mg/dL 70-115 H If you con cash sales audit clerk your code = POCGLUC) patient crit ically ill, the [place] Accu- Chek InformII meters hould not be used for Glu cose determinations. Draw a venous Glucose and send to the Main Lab for Analysis. POC Glucose, [id number] 15:58:00 Test Item Value Reference Range Interpretation Comments POC Glucose (test 138 mg/dL 70-115 H Notify RN or MDIf you code = POCGLUC) consider you r patient critically ill, the [place] Accu-Chek InformII metershould not be used for Glucose determinations. Draw a venous Glucose and send to the Main Lab for Analysis. POC Glucose, [id number] 11:48:00 Test Item Value Reference Range Interpretation Comments POC Glucose (test 154 mg/dL 70-115 H Notify RN or MDIf you code = POCGLUC) consider you r patient critically ill, the [place] Accu-Chek InformII metershould not be used for Glucose determinations. Draw a venous Glucose and send to the Main Lab for Analysis. POC Glucose, [id number] 07:23:00 Test Item Value Reference Range Interpretation Comments POC Glucose (test 131 mg/dL 70-115 H Notify RN or MDIf you code = POCGLUC) consider you r patient critically ill, the [place] Accu-Chek InformII metershould not be used for Glucose determinations. Draw a venous Glucose and send to the Main Lab for Analysis. POC Glucose, [id number] 19:38:00 Test Item Value Reference Range Interpretation Comments POC Glucose (test 160 mg/dL 70-115 H If you con cash sales audit clerk your code = POCGLUC) patient crit ically ill, the [place] Accu- Chek InformII meters hould not be used for Glu cose determinations. Draw a venous Glucose and send to the Main Lab for Analysis. POC Glucose, [id number] 17:27:00 Test Item Value Reference Range Interpretation Comments POC Glucose (test 191 mg/dL 70-115 H If you con cash sales audit clerk your code = POCGLUC) patient crit ically ill, the [place] Accu- Chek InformII meters hould not be used for Glu cose determinations. Draw a venous Glucose and send to the Main Lab for Analysis. POC Glucose, [id number] 14:19:00 Test Item Value Reference Range Interpretation Comments POC Glucose (test 252 mg/dL 70-115 H If you con cash sales audit clerk your code = POCGLUC) patient crit ically ill, the [place] Accu- Chek InformII meters hould not be used for Glu cose determinations. Draw a venous Glucose and send to the Main Lab for Analysis. POC Glucose, [id number] 11:41:00 Test Item Value Reference Range Interpretation Comments POC Glucose (test 114 mg/dL 70-115 N If you con cash sales audit clerk your code = POCGLUC) patient crit ically ill, the [place] Accu- Chek InformII meters hould not be used for Glu cose determinations. Draw a venous Glucose and send to the Main Lab for Analysis. POC Glucose, [id number] 05:58:00 Test Item Value Reference Range Interpretation Comments POC Glucose (test 347 mg/dL 70-115 H If you con cash sales audit clerk your code = POCGLUC) patient crit ically ill, the [place] Accu- Chek InformII meters hould not be used for Glu cose determinations. Draw a venous Glucose and send to the Main Lab for Analysis. POC Glucose, [id number] 19:27:00 Test Item Value Reference Range Interpretation Comments POC Glucose (test 334 mg/dL 70-115 H Notify RN or MDIf you code = POCGLUC) consider you r patient critically ill, the [place] Accu-Chek InformII metershould not be used for Glucose determinations. Draw a venous Glucose and send to the Main Lab for Analysis. POC Glucose, [id number] 15:02:00 Test Item Value Reference Range Interpretation Comments POC Glucose (test 72 mg/dL 70-115 N If you con cash sales audit clerk your code = POCGLUC) patient crit ically ill, the [place] Accu- Chek InformII meters hould not be used for Glu cose determinations. Draw a venous Glucose and send to the Main Lab for Analysis. POC Glucose, [id number] 12:14:00 Test Item Value Reference Range Interpretation Comments POC Glucose (test 110 mg/dL 70-115 N If you con cash sales audit clerk your code = POCGLUC) patient crit ically ill, the [place] Accu- Chek InformII meters hould not be used for Glu cose determinations. Draw a venous Glucose and send to the Main Lab for Analysis. POC Glucose, [id number] 06:03:00 Test Item Value Reference Range Interpretation Comments POC Glucose (test 224 mg/dL 70-115 H If you con cash sales audit clerk your code = POCGLUC) patient crit ically ill, the [place] Accu- Chek InformII meters hould not be used for Glu cose determinations. Draw a venous Glucose and send to the Main Lab for Analysis. POC Glucose, [id number] 19:29:00 Test Item Value Reference Range Interpretation Comments POC Glucose (test 300 mg/dL 70-115 H Notify RN or MDIf you code = POCGLUC) consider you r patient critically ill, the [place] Accu-Chek InformII metershould not be used for Glucose determinations. Draw a venous Glucose and send to the Main Lab for Analysis. POC Glucose, [id number] 16:00:00 Test Item Value Reference Range Interpretation Comments POC Glucose (test 283 mg/dL 70-115 H Notify RN or MDIf you code = POCGLUC) consider you r patient critically ill, the [place] Accu-Chek InformII metershould not be used for Glucose determinations. Draw a venous Glucose and send to the Main Lab for Analysis. RPR, [id number] 14:24:00 Test Item Value Reference Range Interpretation Comments RPR (test code = RPR) Non-Reactive Non-Reactive N POC Glucose, [id number] 11:09:00 Test Item Value Reference Range Interpretation Comments POC Glucose (test 278 mg/dL 70-115 H Notify RN or MDIf you code = POCGLUC) consider you r patient critically ill, the [place] Accu-Chek InformII metershould not be used for Glucose determinations. Draw a venous Glucose and send to the Main Lab for Analysis. Thyroid Stimulating Hormone (TSH)2017-12-04 09:16:00 Test Item Value Reference Range Interpretation Comments TSH (test code = TSH) 2.05 mIU/mL 0.270-4.200 N Lipid [id number] 08:56:00 Test Item Value Reference Range Interpretation Comments Cholesterol (test 215 mg/dL 0-200 H code = CHOL) Triglycerides (test 370 mg/dL 9-200 H code = TRIG) HDL (test code = 33 mg/dL 40-60 L HDL) Chol/HDL (test code 6.5 Ratio 0.0-5.0 H = CHOLPHDL) LDL, Calculated 108 0-130 N (NOTE)RISK O F HEART (test code = LDLC) DISEASEPu blished by [place] Heart AssociationAnal yte Optim al Boderline Increased RiskC HOL <200 200-239 >240TRI G <150 150-199 >200HDL Male: >60 <40HDL Female: >60 <50 LDL < 100 130-15 9 >160 LDL NEAR OPTIMAL IS 100- 129 VLDL (test code = 74 mg/dL 5-40 H VLDL) LDL/HDL (test code = 3 LDLPHDL) POC Glucose, [id number] 05:44:00 Test Item Value Reference Range Interpretation Comments POC Glucose (test 229 mg/dL 70-115 H Notify RN or MDIf you code = POCGLUC) consider you r patient critically ill, the [place] Accu-Chek InformII metershould not be used for Glucose determinations. Draw a venous Glucose and send to the Main Lab for Analysis. POC Glucose, [id number] 11:20:00 Test Item Value Reference Range Interpretation Comments POC Glucose (test 160 mg/dL 70-115 H If you con cash sales audit clerk your code = POCGLUC) patient crit ically ill, the [place] Accu- Chek InformII meters hould not be used for Glu cose determinations. Draw a venous Glucose and send to the Main Lab for Analysis. POC Glucose, [id number] 07:41:00 Test Item Value Reference Range Interpretation Comments POC Glucose (test 121 mg/dL 70-115 H If you con cash sales audit clerk your code = POCGLUC) patient crit ically ill, the [place] Accu- Chek InformII meters hould not be used for Glu cose determinations. Draw a venous Glucose and send to the Main Lab for Analysis. POC Glucose, [id number] 21:24:00 Test Item Value Reference Range Interpretation Comments POC Glucose (test 108 mg/dL 70-115 N If you con cash sales audit clerk your code = POCGLUC) patient crit ically ill, the [place] Accu- Chek InformII meters hould not be used for Glu cose determinations. Draw a venous Glucose and send to the Main Lab for Analysis. POC Glucose, [id number] 15:55:00 Test Item Value Reference Range Interpretation Comments POC Glucose (test 160 mg/dL 70-115 H Notify RN or MDIf you code = POCGLUC) consider you r patient critically ill, the [place] Accu-Chek InformII metershould not be used for Glucose determinations. Draw a venous Glucose and send to the Main Lab for Analysis. POC Glucose, [id number] 11:21:00 Test Item Value Reference Range Interpretation Comments POC Glucose (test 111 mg/dL 70-115 N If you con cash sales audit clerk your code = POCGLUC) patient crit ically ill, the [place] Accu- Chek InformII meters hould not be used for Glu cose determinations. Draw a venous Glucose and send to the Main Lab for Analysis. POC Glucose, [id number] 08:06:00 Test Item Value Reference Range Interpretation Comments POC Glucose (test 135 mg/dL 70-115 H If you con cash sales audit clerk your code = POCGLUC) patient crit ically ill, the [place] Accu- Chek InformII meters hould not be used for Glu cose determinations. Draw a venous Glucose and send to the Main Lab for Analysis. POC Glucose, [id number] 22:43:00 Test Item Value Reference Range Interpretation Comments POC Glucose (test 106 mg/dL 70-115 N If you con cash sales audit clerk your code = POCGLUC) patient crit ically ill, the [place] Accu- Chek InformII meters hould not be used for Glu cose determinations. Draw a venous Glucose and send to the Main Lab for Analysis. POC Glucose, [id number] 16:42:00 Test Item Value Reference Range Interpretation Comments POC Glucose (test 96 mg/dL 70-115 N If you con cash sales audit clerk your code = POCGLUC) patient crit ically ill, the [place] Accu- Chek InformII meters hould not be used for Glu cose determinations. Draw a venous Glucose and send to the Main Lab for Analysis. POC Glucose, [id number] 11:10:00 Test Item Value Reference Range Interpretation Comments POC Glucose (test 149 mg/dL 70-115 H Notify RN or MDIf you code = POCGLUC) consider you r patient critically ill, the [place] Accu-Chek InformII metershould not be used for Glucose determinations. Draw a venous Glucose and send to the Main Lab for Analysis. POC Glucose, [id number] 07:26:00 Test Item Value Reference Range Interpretation Comments POC Glucose (test 124 mg/dL 70-115 H If you con cash sales audit clerk your code = POCGLUC) patient crit ically ill, the [place] Accu- Chek InformII meters hould not be used for Glu cose determinations. Draw a venous Glucose and send to the Main Lab for Analysis. POC Glucose, [id number] 21:16:00 Test Item Value Reference Range Interpretation Comments POC Glucose (test 164 mg/dL 70-115 H Notify RN or MDIf you code = POCGLUC) consider you r patient critically ill, the [place] Accu-Chek InformII metershould not be used for Glucose determinations. Draw a venous Glucose and send to the Main Lab for Analysis. POC Glucose, [id number] 16:34:00 Test Item Value Reference Range Interpretation Comments POC Glucose (test 100 mg/dL 70-115 N If you con cash sales audit clerk your code = POCGLUC) patient crit ically ill, the [place] Accu- Chek InformII meters hould not be used for Glu cose determinations. Draw a venous Glucose and send to the Main Lab for Analysis. POC Glucose, [id number] 11:06:00 Test Item Value Reference Range Interpretation Comments POC Glucose (test 120 mg/dL 70-115 H If you con cash sales audit clerk your code = POCGLUC) patient crit ically ill, the [place] Accu- Chek InformII meters hould not be used for Glu cose determinations. Draw a venous Glucose and send to the Main Lab for Analysis. POC Glucose, [id number] 07:30:00 Test Item Value Reference Range Interpretation Comments POC Glucose (test 80 mg/dL 70-115 N If you con cash sales audit clerk your code = POCGLUC) patient crit ically ill, the [place] Accu- Chek InformII meters hould not be used for Glu cose determinations. Draw a venous Glucose and send to the Main Lab for Analysis. POC Glucose, [id number] 21:17:00 Test Item Value Reference Range Interpretation Comments POC Glucose (test 175 mg/dL 70-115 H Notify RN or MDIf you code = POCGLUC) consider you r patient critically ill, the [place] Accu-Chek InformII metershould not be used for Glucose determinations. Draw a venous Glucose and send to the Main Lab for Analysis. POC Glucose, [id number] 17:46:00 Test Item Value Reference Range Interpretation Comments POC Glucose (test 128 mg/dL 70-115 H If you con cash sales audit clerk your code = POCGLUC) patient crit ically ill, the [place] Accu- Chek InformII meters hould not be used for Glu cose determinations. Draw a venous Glucose and send to the Main Lab for Analysis. POC Glucose, [id number] 11:35:00 Test Item Value Reference Range Interpretation Comments POC Glucose (test 134 mg/dL 70-115 H If you con cash sales audit clerk your code = POCGLUC) patient crit ically ill, the [place] Accu- Chek InformII meters hould not be used for Glu cose determinations. Draw a venous Glucose and send to the Main Lab for Analysis. POC Glucose, [id number] 08:10:00 Test Item Value Reference Range Interpretation Comments POC Glucose (test 220 mg/dL 70-115 H If you con cash sales audit clerk your code = POCGLUC) patient crit ically ill, the [place] Accu- Chek InformII meters hould not be used for Glu cose determinations. Draw a venous Glucose and send to the Main Lab for Analysis. Comprehensive Metabolic [id number] 06:52:00 Test Item Value Reference Range Interpretation Comments Sodium (test code = 136 mmol/L 135-145 N NA) Potassium (test 4.3 mmol/L 3.5-5.1 N code = K) Chloride (test code 97 mmol/L 98-105 L = CL) Carbon Dioxide 27 mmol/L 22-29 N (test code = CO2) Glucose (test code 137 mg/dL 70-115 H = GLU) Blood Urea Nitrogen 14 mg/dL 6-20 N (test code = BUN) Creatinine (test 1.0 mg/dL 0.7-1.2 N code = CREAT) Calcium (test code 8.7 mg/dL 8.3-10.5 N = CA) Prot Total (test 5.9 g/dL 6.4-8.3 L code = TP) Albumin (test code 2.7 g/dL 3.5-5.2 L = ALB) A/G Ratio (test 0.8 Ratio code = AGRATIO) Globulin (test code 3.2 2.9-3.1 H = GLOB) Bili Total (test 0.2 mg/dL 0.1-0.9 N code = TBIL) Alk Phos (test code 93 U/L 40-129 N = APHOS) AST (test code = 32 U/L 1-40 N AST) ALT (test code = 7 U/L 1-41 N ALT) BUN/Creatinine 14.0 Ratio (test code = BCRATIO) Anion Gap (test 12 mmol/L 7-16 N code = AGAP) Estimated GFR (test >60 eGFR (es timated code = GFR) mL/min/1.73m2 Glomerular Pillo tration Rate) is an est imated value,calculate d from the patient's s abida creatinine usin g the MDRD equation.I t is NOT the patient 's actual GFR. The eGFR provides a more clinicallyusefu l measure of kidn ey disease than se rum creatinine alone.This calculation adrien es sex and race into account, if the informationis provided. If th e race is not provided , and the patient isAfrican-Ameri can, multiply by 1.2 12. If sex is not prov ided, and thepatient is female, multipl y by 0.742. Results for patients <18 ye ars ofage have not been validated by th e MDRD study and juanitoul d be interpretedwith caution.eGFR Re sult Interpretation: eGFR > or = 60 is in t he Normal RangeeGF R < 60 may mean kidney diseaseeGFR < 1 5 may mean kidney failureRange s recommended by the National Kidney Foundation,http ://nkd ep.nih.gov CBC with [id number] 06:34:00 Test Item Value Reference Range Interpretation Comments WBC (test code = WBC) 11.5 K/cumm 4.4-10.5 H RBC (test code = RBC) 3.67 M/cumm 4.10-5.70 L Hemoglobin (test code = HGB) 8.7 gm/dL 13.4-17.4 L Hematocrit (test code = HCT) 27.5 % 38.7-52.0 L MCV (test code = MCV) 74.9 fL 80-100 L MCH (test code = MCH) 23.8 pg 27.0-32.5 L MCHC (test code = MCHC) 31.7 g/dL 32.0-37.5 L RDW (test code = RDW) 15.2 % 11.5-14.5 H Platelet Count (test code = 499 K/cumm 140-440 H PLTCT) MPV (test code = MPV) 6.0 fL Diff Method (test code = DIFFM) Auto Neutrophil (test code = NEUT) 70.6 % 36-70 H Lymphocyte (test code = LYMPH) 21.3 % 12-44 N Monocyte (test code = MONO) 6.0 % 0-11 N Eosinophil (test code = EOS) 1.7 % 0-7 N Basophil (test code = BASO) 0.4 % 0-2 N Neutro Abs (test code = ANEUT) 8.1 K/cumm 1.6-7.4 H Lymph Abs (test code = ALYMPH) 2.4 K/cumm 0.5-4.6 N [place] Abs (test code = AMONO) 0.7 K/cumm 0.0-1.2 N Eos Abs (test code = AEOS) 0.19 K/cumm 0.00-0.74 N Baso Abs (test code = ABASO) 0.1 K/cumm 0.00-0.21 N Microcytosis (test code = MICRO) Slight POC Glucose, [id number] 20:28:00 Test Item Value Reference Range Interpretation Comments POC Glucose (test 211 mg/dL 70-115 H If you con cash sales audit clerk your code = POCGLUC) patient crit ically ill, the [place] Accu- Chek InformII meters hould not be used for Glu cose determinations. Draw a venous Glucose and send to the Main Lab for Analysis. POC Glucose, [id number] 17:09:00 Test Item Value Reference Range Interpretation Comments POC Glucose (test 146 mg/dL 70-115 H If you con cash sales audit clerk your code = POCGLUC) patient crit ically ill, the [place] Accu- Chek InformII meters hould not be used for Glu cose determinations. Draw a venous Glucose and send to the Main Lab for Analysis. POC Glucose, [id number] 11:53:00 Test Item Value Reference Range Interpretation Comments POC Glucose (test 136 mg/dL 70-115 H If you con cash sales audit clerk your code = POCGLUC) patient crit ically ill, the [place] Accu- Chek InformII meters hould not be used for Glu cose determinations. Draw a venous Glucose and send to the Main Lab for Analysis. POC Glucose, [id number] 07:57:00 Test Item Value Reference Range Interpretation Comments POC Glucose (test 143 mg/dL 70-115 H If you con cash sales audit clerk your code = POCGLUC) patient crit ically ill, the [place] Accu- Chek InformII meters hould not be used for Glu cose determinations. Draw a venous Glucose and send to the Main Lab for Analysis. POC Glucose, [id number] 20:38:00 Test Item Value Reference Range Interpretation Comments POC Glucose (test 152 mg/dL 70-115 H Notify RN or MDIf you code = POCGLUC) consider you r patient critically ill, the [place] Accu-Chek InformII metershould not be used for Glucose determinations. Draw a venous Glucose and send to the Main Lab for Analysis. POC Glucose, [id number] 16:49:00 Test Item Value Reference Range Interpretation Comments POC Glucose (test 171 mg/dL 70-115 H Notify RN or MDIf you code = POCGLUC) consider you r patient critically ill, the [place] Accu-Chek InformII metershould not be used for Glucose determinations. Draw a venous Glucose and send to the Main Lab for Analysis. POC Glucose, [id number] 11:10:00 Test Item Value Reference Range Interpretation Comments POC Glucose (test 160 mg/dL 70-115 H Notify RN or MDIf you code = POCGLUC) consider you r patient critically ill, the [place] Accu-Chek InformII metershould not be used for Glucose determinations. Draw a venous Glucose and send to the Main Lab for Analysis. POC Glucose, [id number] 07:36:00 Test Item Value Reference Range Interpretation Comments POC Glucose (test 126 mg/dL 70-115 H If you con cash sales audit clerk your code = POCGLUC) patient crit ically ill, the [place] Accu- Chek InformII meters hould not be used for Glu cose determinations. Draw a venous Glucose and send to the Main Lab for Analysis. POC Glucose, [id number] 20:51:00 Test Item Value Reference Range Interpretation Comments POC Glucose (test 165 mg/dL 70-115 H Notify RN or MDIf you code = POCGLUC) consider you r patient critically ill, the [place] Accu-Chek InformII metershould not be used for Glucose determinations. Draw a venous Glucose and send to the Main Lab for Analysis. POC Glucose, [id number] 16:42:00 Test Item Value Reference Range Interpretation Comments POC Glucose (test 133 mg/dL 70-115 H If you con cash sales audit clerk your code = POCGLUC) patient crit ically ill, the [place] Accu- Chek InformII meters hould not be used for Glu cose determinations. Draw a venous Glucose and send to the Main Lab for Analysis. POC Glucose, [id number] 11:19:00 Test Item Value Reference Range Interpretation Comments POC Glucose (test 250 mg/dL 70-115 H Notify RN or MDIf you code = POCGLUC) consider you r patient critically ill, the [facility] Accu-Chek InformII metershould not be used for Glucose determinations. Draw a venous Glucose and send to the Main Lab for Analysis. Culture, [id number] 08:19:00Specimen: UrineCollected: 07/10/2017 12:47 Status: Final Last Updated: 07/12/2017 08:19 Culture Result (Final) (Final) 07/11/17 No growth 24 hours 07/12/17 No growth 48 hoursPOC Glucose, Blood 2017-07-12 07:26:00 Test Item Value Reference Range Interpretation Comments POC Glucose (test 131 mg/dL 70-115 H Notify RN or MDIf you code = POCGLUC) consider you r patient critically ill, the [facility] Accu-Chek InformII metershould not be used for Glucose determinations. Draw a venous Glucose and send to the Main Lab for Analysis. POC Glucose, [id number] 20:55:00 Test Item Value Reference Range Interpretation Comments POC Glucose (test 140 mg/dL 70-115 H If you con cash sales audit clerk your code = POCGLUC) patient crit ically ill, the [facility] Accu- Chek InformII meters hould not be used for Glu cose determinations. Draw a venous Glucose and send to the Main Lab for Analysis. POC Glucose, [id number] 16:13:00 Test Item Value Reference Range Interpretation Comments POC Glucose (test 151 mg/dL 70-115 H Notify RN or MDIf you code = POCGLUC) consider you r patient critically ill, the [facility] Accu-Chek InformII metershould not be used for Glucose determinations. Draw a venous Glucose and send to the Main Lab for Analysis. POC Glucose, [id number] 11:43:00 Test Item Value Reference Range Interpretation Comments POC Glucose (test 170 mg/dL 70-115 H Notify RN or MDIf you code = POCGLUC) consider you r patient critically ill, the [facility] Accu-Chek InformII metershould not be used for Glucose determinations. Draw a venous Glucose and send to the Main Lab for Analysis. POC Glucose, [id number] 07:23:00 Test Item Value Reference Range Interpretation Comments POC Glucose (test 207 mg/dL 70-115 H Notify RN or MDIf you code = POCGLUC) consider you r patient critically ill, the [facility] Accu-Chek InformII metershould not be used for Glucose determinations. Draw a venous Glucose and send to the Main Lab for Analysis. POC Glucose, [id number] 20:24:00 Test Item Value Reference Range Interpretation Comments POC Glucose (test 208 mg/dL 70-115 H If you con cash sales audit clerk your code = POCGLUC) patient crit ically ill, the [facility] Accu- Chek InformII meters hould not be used for Glu cose determinations. Draw a venous Glucose and send to the Main Lab for Analysis. POC Glucose, [id number] 17:14:00 Test Item Value Reference Range Interpretation Comments POC Glucose (test 158 mg/dL 70-115 H If you con cash sales audit clerk your code = POCGLUC) patient crit ically ill, the [facility] Accu- Chek InformII meters hould not be used for Glu cose determinations. Draw a venous Glucose and send to the Main Lab for Analysis. Urinalysis [id number] 13:04:00 Test Item Value Reference Range Interpretation Comments Color (test code = COLOR) Straw Yellow,Straw,Pl N yellow Clarity (test code = Clear Clear N CLAR) Specific [place] (test 1.010 1.001-1.035 N code = SPGR) pH (test code = PH) 5.0 5.0-9.0 N Ketone (test code = KET) Negative mg/dL Negative N Glucose (test code = Negative mg/dL Negative N GLUCUR) Protein (test code = Negative mg/dL Negative N PROT) Bilirubin (test code = Negative mg/dL Negative N BILI) Occult Blood (test code = Negative Negative N UDOB) Urobilinogen (test code = 0.2 mg/dL 0.2-1.0 N UROB) Nitrite (test code = NIT) Negative Negative N Leuk Esterase (test code Negative Negative N = LEUK) Micros Exam (test code = Not indicated MEXAM) POC Glucose, [id number] 11:48:00 Test Item Value Reference Range Interpretation Comments POC Glucose (test 135 mg/dL 70-115 H If you con cash sales audit clerk your code = POCGLUC) patient crit ically ill, the [facility] Accu- Chek InformII meters hould not be used for Glu cose determinations. Draw a venous Glucose and send to the Main Lab for Analysis. POC Glucose, [id number] 07:47:00 Test Item Value Reference Range Interpretation Comments POC Glucose (test 173 mg/dL 70-115 H If you con cash sales audit clerk your code = POCGLUC) patient crit ically ill, the [facility] Accu- Chek InformII meters hould not be used for Glu cose determinations. Draw a venous Glucose and send to the Main Lab for Analysis. Basic Metabolic [id number] 05:18:00 Test Item Value Reference Range Interpretation Comments Sodium (test code = 133 mmol/L 135-145 L NA) Potassium (test 4.9 mmol/L 3.5-5.1 N code = K) Chloride (test code 99 mmol/L 98-105 N = CL) Carbon Dioxide 25 mmol/L 22-29 N (test code = CO2) Glucose (test code 129 mg/dL 70-115 H = GLU) Blood Urea Nitrogen 15 mg/dL 6-20 N (test code = BUN) Creatinine (test 1.2 mg/dL 0.7-1.2 N code = CREAT) Calcium (test code 8.3 mg/dL 8.3-10.5 N = CA) BUN/Creatinine 12.5 Ratio (test code = BCRATIO) Anion Gap (test 9 mmol/L 7-16 N code = AGAP) Estimated GFR (test >60 eGFR (es timated code = GFR) mL/min/1.73m2 Glomerular Pillo tration Rate) is an est imated value,calculate d from the patient's s abida creatinine usin g the MDRD equation.I t is NOT the patient 's actual GFR. The eGFR provides a more clinicallyusefu l measure of kidn ey disease than se rum creatinine alone.This calculation adrien es sex and race into account, if the informationis provided. If th e race is not provided , and the patient isAfrican-Ameri can, multiply by 1.2 12. If sex is not prov ided, and thepatient is female, multipl y by 0.742. Results for patients <18 ye ars ofage have not been validated by th e MDRD study and shoul d be interpretedwith caution.eGFR Re sult Interpretation: eGFR > or = 60 is in t he Normal RangeeGF R < 60 may mean kidney diseaseeGFR < 1 5 may mean kidney failureRange s recommended by the National Kidney Foundation,http ://nkd ep.nih.gov CBC with [id number] 04:59:00 Test Item Value Reference Range Interpretation Comments WBC (test code = WBC) 11.3 K/cumm 4.4-10.5 H RBC (test code = RBC) 3.93 M/cumm 4.10-5.70 L Hemoglobin (test code = HGB) 9.6 gm/dL 13.4-17.4 L Hematocrit (test code = HCT) 30.6 % 38.7-52.0 L MCV (test code = MCV) 78.0 fL 80-100 L MCH (test code = MCH) 24.4 pg 27.0-32.5 L MCHC (test code = MCHC) 31.3 g/dL 32.0-37.5 L RDW (test code = RDW) 15.7 % 11.5-14.5 H Platelet Count (test code = 346 K/cumm 140-440 N PLTCT) MPV (test code = MPV) 6.5 fL Diff Method (test code = DIFFM) Auto Neutrophil (test code = NEUT) 65.7 % 36-70 N Lymphocyte (test code = LYMPH) 24.3 % 12-44 N Monocyte (test code = MONO) 7.4 % 0-11 N Eosinophil (test code = EOS) 2.3 % 0-7 N Basophil (test code = BASO) 0.4 % 0-2 N Neutro Abs (test code = ANEUT) 7.4 K/cumm 1.6-7.4 N Lymph Abs (test code = ALYMPH) 2.7 K/cumm 0.5-4.6 N [place] Abs (test code = AMONO) 0.8 K/cumm 0.0-1.2 N Eos Abs (test code = AEOS) 0.26 K/cumm 0.00-0.74 N Baso Abs (test code = ABASO) 0.0 K/cumm 0.00-0.21 N POC Glucose, [id number] 20:59:00 Test Item Value Reference Range Interpretation Comments POC Glucose (test 199 mg/dL 70-115 H Notify RN or MDIf you code = POCGLUC) consider you r patient critically ill, the [facility] Accu-Chek InformII metershould not be used for Glucose determinations. Draw a venous Glucose and send to the Main Lab for Analysis. POC Glucose, [id number] 16:26:00 Test Item Value Reference Range Interpretation Comments POC Glucose (test 170 mg/dL 70-115 H Notify RN or MDIf you code = POCGLUC) consider you r patient critically ill, the [facility] Accu-Chek InformII metershould not be used for Glucose determinations. Draw a venous Glucose and send to the Main Lab for Analysis. POC Glucose, [id number] 11:41:00 Test Item Value Reference Range Interpretation Comments POC Glucose (test 246 mg/dL 70-115 H If you con cash sales audit clerk your code = POCGLUC) patient crit ically ill, the [facility] Accu- Chek InformII meters hould not be used for Glu cose determinations. Draw a venous Glucose and send to the Main Lab for Analysis. Glycosylated [id number] 07:39:00 Test Item Value Reference Range Interpretation Comments HBA1c (test code = HBA1C) 9.1 % 4.8-5.9 H POC Glucose, [id number] 07:36:00 Test Item Value Reference Range Interpretation Comments POC Glucose (test 206 mg/dL 70-115 H If you con cash sales audit clerk your code = POCGLUC) patient crit ically ill, the [facility] Accu- Chek InformII meters hould not be used for Glu cose determinations. Draw a venous Glucose and send to the Main Lab for Analysis. CBC with [id number] 06:09:00 Test Item Value Reference Range Interpretation Comments WBC (test code = WBC) 15.4 K/cumm 4.4-10.5 H RBC (test code = RBC) 4.26 M/cumm 4.10-5.70 N Hemoglobin (test code = HGB) 10.1 gm/dL 13.4-17.4 L Hematocrit (test code = HCT) 32.3 % 38.7-52.0 L MCV (test code = MCV) 75.8 fL 80-100 L MCH (test code = MCH) 23.6 pg 27.0-32.5 L MCHC (test code = MCHC) 31.2 g/dL 32.0-37.5 L RDW (test code = RDW) 15.4 % 11.5-14.5 H Platelet Count (test code = 401 K/cumm 140-440 N PLTCT) MPV (test code = MPV) 6.2 fL Diff Method (test code = DIFFM) Auto Neutrophil (test code = NEUT) 69.5 % 36-70 N Lymphocyte (test code = LYMPH) 22.7 % 12-44 N Monocyte (test code = MONO) 6.2 % 0-11 N Eosinophil (test code = EOS) 1.2 % 0-7 N Basophil (test code = BASO) 0.4 % 0-2 N Neutro Abs (test code = ANEUT) 10.7 K/cumm 1.6-7.4 H Lymph Abs (test code = ALYMPH) 3.5 K/cumm 0.5-4.6 N [place] Abs (test code = AMONO) 1.0 K/cumm 0.0-1.2 N Eos Abs (test code = AEOS) 0.19 K/cumm 0.00-0.74 N Baso Abs (test code = ABASO) 0.1 K/cumm 0.00-0.21 N Microcytosis (test code = MICRO) Slight Comprehensive Metabolic [id number] 06:00:00 Test Item Value Reference Range Interpretation Comments Sodium (test code = 126 mmol/L 135-145 L NA) Potassium (test 4.3 mmol/L 3.5-5.1 N code = K) Chloride (test code 90 mmol/L 98-105 L = CL) Carbon Dioxide 26 mmol/L 22-29 N (test code = CO2) Glucose (test code 191 mg/dL 70-115 H = GLU) Blood Urea Nitrogen 14 mg/dL 6-20 N (test code = BUN) Creatinine (test 1.0 mg/dL 0.7-1.2 N code = CREAT) Calcium (test code 8.4 mg/dL 8.3-10.5 N = CA) Prot Total (test 6.4 g/dL 6.4-8.3 N code = TP) Albumin (test code 3.5 g/dL 3.5-5.2 N = ALB) A/G Ratio (test 1.2 Ratio code = AGRATIO) Globulin (test code 2.9 2.9-3.1 N = GLOB) Bili Total (test 0.2 mg/dL 0.1-0.9 N code = TBIL) Alk Phos (test code 98 U/L 40-129 N = APHOS) AST (test code = 25 U/L 1-40 N AST) ALT (test code = 12 U/L 1-41 N ALT) BUN/Creatinine 14.0 Ratio (test code = BCRATIO) Anion Gap (test 10 mmol/L 7-16 N code = AGAP) Estimated GFR (test >60 eGFR (es timated code = GFR) mL/min/1.73m2 Glomerular Pillo tration Rate) is an est imated value,calculate d from the patient's s abida creatinine usin g the MDRD equation.I t is NOT the patient 's actual GFR. The eGFR provides a more clinicallyusefu l measure of kidn ey disease than se rum creatinine alone.This calculation adrien es sex and race into account, if the informationis provided. If th e race is not provided , and the patient isAfrican-Ameri can, multiply by 1.2 12. If sex is not prov ided, and thepatient is female, multipl y by 0.742. Results for patients <18 ye ars ofage have not been validated by th e MDRD study and shoul d be interpretedwith caution.eGFR Re sult Interpretation: eGFR > or = 60 is in t he Normal RangeeGF R < 60 may mean kidney diseaseeGFR < 1 5 may mean kidney failureRange s recommended by the National Kidney Foundation,http ://nkd ep.nih.gov Magnesium, [id number] 06:00:00 Test Item Value Reference Range Interpretation Comments Magnesium (test code = MG) 2.2 mg/dL 1.7-2.5 N [id number] 06:00:00 Test Item Value Reference Range Interpretation Comments Phosphorus (test code = PO4) 2.8 mg/dL 2.70-4.50 N POC Glucose, [id number] 20:44:00 Test Item Value Reference Range Interpretation Comments POC Glucose (test 199 mg/dL 70-115 H If you con cash sales audit clerk your code = POCGLUC) patient crit ically ill, the [facility] Accu- Chek InformII meters hould not be used for Glu cose determinations. Draw a venous Glucose and send to the Main Lab for Analysis. POC Glucose, [id number] 16:28:00 Test Item Value Reference Range Interpretation Comments POC Glucose (test 242 mg/dL 70-115 H Notify RN or MDIf you code = POCGLUC) consider you r patient critically ill, the [facility] Accu-Chek InformII metershould not be used for Glucose determinations. Draw a venous Glucose and send to the Main Lab for Analysis. POC Glucose, [id number] 13:37:00 Test Item Value Reference Range Interpretation Comments POC Glucose (test 131 mg/dL 70-115 H If you con cash sales audit clerk your code = POCGLUC) patient crit ically ill, the [facility] Accu- Chek InformII meters hould not be used for Glu cose determinations. Draw a venous Glucose and send to the Main Lab for Analysis. POC Glucose, [id number] 12:14:00 Test Item Value Reference Range Interpretation Comments POC Glucose (test 100 mg/dL 70-115 N If you con cash sales audit clerk your code = POCGLUC) patient crit ically ill, the [facility] Accu- Chek InformII meters hould not be used for Glu cose determinations. Draw a venous Glucose and send to the Main Lab for Analysis. POC Glucose, [id number] 07:30:00 Test Item Value Reference Range Interpretation Comments POC Glucose (test 123 mg/dL 70-115 H If you con cash sales audit clerk your code = POCGLUC) patient crit ically ill, the [facility] Accu- Chek InformII meters hould not be used for Glu cose determinations. Draw a venous Glucose and send to the Main Lab for Analysis. Basic Metabolic [id number] 06:05:00 Test Item Value Reference Range Interpretation Comments Sodium (test code = 138 mmol/L 135-145 N NA) Potassium (test 4.0 mmol/L 3.5-5.1 N code = K) Chloride (test code 98 mmol/L 98-105 N = CL) Carbon Dioxide 32 mmol/L 22-29 H (test code = CO2) Glucose (test code 128 mg/dL 70-115 H = GLU) Blood Urea Nitrogen 16 mg/dL 6-20 N (test code = BUN) Creatinine (test 1.2 mg/dL 0.7-1.2 N code = CREAT) Calcium (test code 9.4 mg/dL 8.3-10.5 N = CA) BUN/Creatinine 13.3 Ratio (test code = BCRATIO) Anion Gap (test 8 mmol/L 7-16 N code = AGAP) Estimated GFR (test >60 eGFR (es timated code = GFR) mL/min/1.73m2 Glomerular Pillo tration Rate) is an est imated value,calculate d from the patient's s abida creatinine usin g the MDRD equation.I t is NOT the patient 's actual GFR. The eGFR provides a more clinicallyusefu l measure of kidn ey disease than se rum creatinine alone.This calculation adrien es sex and race into account, if the informationis provided. If th e race is not provided , and the patient isAfrican-Ameri can, multiply by 1.2 12. If sex is not prov ided, and thepatient is female, multipl y by 0.742. Results for patients <18 ye ars ofage have not been validated by th e MDRD study and nini d be interpretedwith caution.eGFR Re sult Interpretation: eGFR > or = 60 is in t he Normal RangeeGF R < 60 may mean kidney diseaseeGFR < 1 5 may mean kidney failureRange s recommended by the National Kidney Foundation,http ://nkd ep.nih.gov CBC with [id number] 05:44:00 Test Item Value Reference Range Interpretation Comments WBC (test code = WBC) 12.0 K/cumm 4.4-10.5 H RBC (test code = RBC) 4.84 M/cumm 4.10-5.70 N Hemoglobin (test code = HGB) 11.6 gm/dL 13.4-17.4 L Hematocrit (test code = HCT) 37.5 % 38.7-52.0 L MCV (test code = MCV) 77.4 fL 80-100 L MCH (test code = MCH) 23.9 pg 27.0-32.5 L MCHC (test code = MCHC) 30.9 g/dL 32.0-37.5 L RDW (test code = RDW) 15.5 % 11.5-14.5 H Platelet Count (test code = 443 K/cumm 140-440 H PLTCT) MPV (test code = MPV) 6.2 fL Diff Method (test code = DIFFM) Auto Neutrophil (test code = NEUT) 49.5 % 36-70 N Lymphocyte (test code = LYMPH) 39.8 % 12-44 N Monocyte (test code = MONO) 6.9 % 0-11 N Eosinophil (test code = EOS) 2.9 % 0-7 N Basophil (test code = BASO) 0.9 % 0-2 N Neutro Abs (test code = ANEUT) 5.9 K/cumm 1.6-7.4 N Lymph Abs (test code = ALYMPH) 4.8 K/cumm 0.5-4.6 H [place] Abs (test code = AMONO) 0.8 K/cumm 0.0-1.2 N Eos Abs (test code = AEOS) 0.34 K/cumm 0.00-0.74 N Baso Abs (test code = ABASO) 0.1 K/cumm 0.00-0.21 N POC Glucose, [id number] 20:29:00 Test Item Value Reference Range Interpretation Comments POC Glucose (test 152 mg/dL 70-115 H If you con cash sales audit clerk your code = POCGLUC) patient crit ically ill, the [facility] Accu- Chek InformII meters hould not be used for Glu cose determinations. Draw a venous Glucose and send to the Main Lab for Analysis. Antibody Screen - [id number] 17:58:00 Test Item Value Reference Range Interpretation Comments Antibody Screen (test code = ABSCR) Negative Blood Type and [id number] 17:44:00 Test Item Value Reference Range Interpretation Comments ABO type (test code = ABO) A Rh Type (test code = RH) Positive POC Glucose, [id number] 16:09:00 Test Item Value Reference Range Interpretation Comments POC Glucose (test 192 mg/dL 70-115 H If you con cash sales audit clerk your code = POCGLUC) patient crit ically ill, the [facility] Accu- Chek InformII meters hould not be used for Glu cose determinations. Draw a venous Glucose and send to the Main Lab for Analysis. POC Glucose, [id number] 12:11:00 Test Item Value Reference Range Interpretation Comments POC Glucose (test 249 mg/dL 70-115 H If you con cash sales audit clerk your code = POCGLUC) patient crit ically ill, the [facility] Accu- Chek InformII meters hould not be used for Glu cose determinations. Draw a venous Glucose and send to the Main Lab for Analysis. MRI LWR EXTRM NON-JNT WO [id number] 09:25:10LOCATION: [id number]: MRI LWR EXTRM NON-JNT WO CONTRST-LEFTINDICATION: LEFT [...] concerning for injury.US DUPLX LWR EXT ART/BPG, [id number] 08:50:53US DUPLX LWR EXT ART/BPG, BILATCLINICAL HISTORY: non-healing woundsTechnique: Grayscale, color, and spectral sonography of the bilateral lower extremity arteries was performed.FINDINGS:Right leg (waveform / peak systolic velocity)SPA HOST: Triphasic 95 cm/secProx SFA: Triphasic 92 cm/secMid SFA: Triphasic 81 cm/secDistal SFA: Triphasic 83 cm/secPopliteal: Triphasic 84 cm/secPTA: Monophasic 93 cm/secATA: Triphasic 32 cm/secDPA: Not imaged/bandaging Left leg (waveform / peak systolic velocity)SPA HOST: Triphasic 88 cm/secProx SFA: Triphasic 93 cm/secMid SFA: Triphasic 82 cm/secDistal SFA: Triphasic 49 cm/secPopliteal: Triphasic 60 cm/secPTA: Triphasic 73 cm/secATA: Triphasic 93 cm/secDPA: Not imaged/bandaging IMPRESSION: 1. Limited exam. Thedorsalis pedis arteries are not imaged.2. Abnormal monophasic waveform in the right posterior tibial artery.3. Otherwise unremarkable exam.Location: R16 CBC with [id number] 08:22:00 Test Item Value Reference Range Interpretation Comments WBC (test code = WBC) 10.0 K/cumm 4.4-10.5 N RBC (test code = RBC) 5.36 M/cumm 4.10-5.70 N Hemoglobin (test code = HGB) 12.8 gm/dL 13.4-17.4 L Hematocrit (test code = HCT) 41.3 % 38.7-52.0 N MCV (test code = MCV) 77.0 fL 80-100 L MCH (test code = MCH) 23.9 pg 27.0-32.5 L MCHC (test code = MCHC) 31.0 g/dL 32.0-37.5 L RDW (test code = RDW) 14.5 % 11.5-14.5 N Platelet Count (test code = 418 K/cumm 140-440 N PLTCT) MPV (test code = MPV) 6.8 fL Diff Method (test code = DIFFM) Auto Neutrophil (test code = NEUT) 53.6 % 36-70 N Lymphocyte (test code = LYMPH) 36.3 % 12-44 N Monocyte (test code = MONO) 5.6 % 0-11 N Eosinophil (test code = EOS) 3.7 % 0-7 N Basophil (test code = BASO) 0.9 % 0-2 N Neutro Abs (test code = ANEUT) 5.3 K/cumm 1.6-7.4 N Lymph Abs (test code = ALYMPH) 3.6 K/cumm 0.5-4.6 N [place] Abs (test code = AMONO) 0.6 K/cumm 0.0-1.2 N Eos Abs (test code = AEOS) 0.37 K/cumm 0.00-0.74 N Baso Abs (test code = ABASO) 0.1 K/cumm 0.00-0.21 N Basic Metabolic [id number] 08:03:00 Test Item Value Reference Range Interpretation Comments Sodium (test code = 132 mmol/L 135-145 L NA) Potassium (test 4.3 mmol/L 3.5-5.1 N code = K) Chloride (test code 97 mmol/L 98-105 L = CL) Carbon Dioxide 27 mmol/L 22-29 N (test code = CO2) Glucose (test code 113 mg/dL 70-115 N = GLU) Blood Urea Nitrogen 14 mg/dL 6-20 N (test code = BUN) Creatinine (test 1.1 mg/dL 0.7-1.2 N code = CREAT) Calcium (test code 9.1 mg/dL 8.3-10.5 N = CA) BUN/Creatinine 12.7 Ratio (test code = BCRATIO) Anion Gap (test 8 mmol/L 7-16 N code = AGAP) Estimated GFR (test >60 eGFR (es timated code = GFR) mL/min/1.73m2 Glomerular Pillo tration Rate) is an est imated value,calculate d from the patient's s abida creatinine usin g the MDRD equation.I t is NOT the patient 's actual GFR. The eGFR provides a more clinicallyusefu l measure of kidn ey disease than se rum creatinine alone.This calculation adrien es sex and race into account, if the informationis provided. If th e race is not provided , and the patient isAfrican-Ameri can, multiply by 1.2 12. If sex is not prov ided, and thepatient is female, multipl y by 0.742. Results for patients <18 ye ars ofage have not been validated by th e MDRD study and shoul d be interpretedwith caution.eGFR Re sult Interpretation: eGFR > or = 60 is in t he Normal RangeeGF R < 60 may mean kidney diseaseeGFR < 1 5 may mean kidney failureRange s recommended by the National Kidney Foundation,http ://nkd ep.nih.gov POC Glucose, [id number] 07:30:00 Test Item Value Reference Range Interpretation Comments POC Glucose (test 110 mg/dL 70-115 N If you con cash sales audit clerk your code = POCGLUC) patient crit ically ill, the [place] Accu- Chek InformII meters hould not be used for Glu cose determinations. Draw a venous Glucose and send to the Main Lab for Analysis. POC Glucose, [id number] 19:57:00 Test Item Value Reference Range Interpretation Comments POC Glucose (test 124 mg/dL 70-115 H If you con cash sales audit clerk your code = POCGLUC) patient crit ically ill, the [place] Accu- Chek InformII meters hould not be used for Glu cose determinations. Draw a venous Glucose and send to the Main Lab for Analysis. POC Glucose, [id number] 16:10:00 Test Item Value Reference Range Interpretation Comments POC Glucose (test 114 mg/dL 70-115 N Notify RN or MDIf you code = POCGLUC) consider you r patient critically ill, the [place] Accu-Chek InformII metershould not be used for Glucose determinations. Draw a venous Glucose and send to the Main Lab for Analysis. POC Glucose, [id number] 11:18:00 Test Item Value Reference Range Interpretation Comments POC Glucose (test 203 mg/dL 70-115 H Notify RN or MDIf you code = POCGLUC) consider you r patient critically ill, the [place] Accu-Chek InformII metershould not be used for Glucose determinations. Draw a venous Glucose and send to the Main Lab for Analysis. Culture, Wound [id number] 09:58:00Specimen: FootCollected: 07/03/2017 17:00 Status: Final Last [...] Streptococcus Beta Hemolytic Streptococcus Group GPOC Glucose, [id number] 07:23:00 Test Item Value Reference Range Interpretation Comments POC Glucose (test 197 mg/dL 70-115 H Notify RN or MDIf you code = POCGLUC) consider you r patient critically ill, the [place] Accu-Chek InformII metershould not be used for Glucose determinations. Draw a venous Glucose and send to the Main Lab for Analysis. POC Glucose, [id number] 16:09:00 Test Item Value Reference Range Interpretation Comments POC Glucose (test 194 mg/dL 70-115 H If you con cash sales audit clerk your code = POCGLUC) patient crit ically ill, the [place] Accu- Chek InformII meters hould not be used for Glu cose determinations. Draw a venous Glucose and send to the Main Lab for Analysis. POC Glucose, [id number] 11:33:00 Test Item Value Reference Range Interpretation Comments POC Glucose (test 193 mg/dL 70-115 H If you con cash sales audit clerk your code = POCGLUC) patient crit ically ill, the [place] Accu- Chek InformII meters hould not be used for Glu cose determinations. Draw a venous Glucose and send to the Main Lab for Analysis. MRI LWR EXTRM NON-JNT WO [id number] 08:18:56EXAM: MRI right foot without contrastLocation: [id number]: History of amputation, rule out osteomy elitisCOMPARISON: [...] 2017-07-05 07:15:00 Test Item Value Reference Range Interpretation Comments POC Glucose (test 140 mg/dL 70-115 H If you con cash sales audit clerk your code = POCGLUC) patient crit ically ill, the [place] Accu- Chek InformII meters hould not be used for Glu cose determinations. Draw a venous Glucose and send to the Main Lab for Analysis. Sed Rate ESR ([place])2017-07-05 06:40:00 Test Item Value Reference Range Interpretation Comments ESR (test code = HESR) 54 mm/Hr 0-9 H C-Reactive Protein, [id number] 05:41:00 Test Item Value Reference Range Interpretation Comments CRP (test code = CRP) 34.7 mg/L 0.0-5.0 H POC Glucose, [id number] 21:22:00 Test Item Value Reference Range Interpretation Comments POC Glucose (test 141 mg/dL 70-115 H If you con cash sales audit clerk your code = POCGLUC) patient crit ically ill, the [place] Accu- Chek InformII meters hould not be used for Glu cose determinations. Draw a venous Glucose and send to the Main Lab for Analysis. POC Glucose, [id number] 16:09:00 Test Item Value Reference Range Interpretation Comments POC Glucose (test 156 mg/dL 70-115 H If you con cash sales audit clerk your code = POCGLUC) patient crit ically ill, the [place] Accu- Chek InformII meters hould not be used for Glu cose determinations. Draw a venous Glucose and send to the Main Lab for Analysis. POC Glucose, [id number] 12:05:00 Test Item Value Reference Range Interpretation Comments POC Glucose (test 170 mg/dL 70-115 H If you con cash sales audit clerk your code = POCGLUC) patient crit ically ill, the [place] Accu- Chek InformII meters hould not be used for Glu cose determinations. Draw a venous Glucose and send to the Main Lab for Analysis. XR FOOT [id number] 08:56:55XR FOOT 2V-LEFTLOCATION: [id number]:left foot ulcer COMPARISON: None.DISCUSSION:Frontal and lateral radiographs [...] stump.2. No definite acute osseous abnormalities.XR FOOT [id number] 08:53:30XR FOOT 2V-RIGHTLOCATION: [id number]:right foot stump ulcer COMPARISON: None.DISCUSSION:Frontal and lateral radiographs of the right foot were obtained. Amputation changes at the proximal metatarsals are noted.No definite suspicious focal osseous destruction or periosteal reactionis seen.Otherwise, no acute fracture or dislocation is seen.The joint spaces are grossly preserved.IMPRESSION:1. 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 No definite acute osseous abnormalities.POC Glucose, [id number] 07:50:00 Test Item Value Reference Range Interpretation Comments POC Glucose (test 139 mg/dL 70-115 H If you con cash sales audit clerk your code = POCGLUC) patient crit ically ill, the [place] Accu- Chek InformII meters hould not be used for Glu cose determinations. Draw a venous Glucose and send to the Main Lab for Analysis. CBC with [id number] 06:19:00 Test Item Value Reference Range Interpretation Comments WBC (test code = WBC) 8.0 K/cumm 4.4-10.5 N RBC (test code = RBC) 4.28 M/cumm 4.10-5.70 N Hemoglobin (test code = HGB) 10.5 gm/dL 13.4-17.4 L Hematocrit (test code = HCT) 32.8 % 38.7-52.0 L MCV (test code = MCV) 76.7 fL 80-100 L MCH (test code = MCH) 24.5 pg 27.0-32.5 L MCHC (test code = MCHC) 32.0 g/dL 32.0-37.5 N RDW (test code = RDW) 14.8 % 11.5-14.5 H Platelet Count (test code = 392 K/cumm 140-440 N PLTCT) MPV (test code = MPV) 6.7 fL Diff Method (test code = DIFFM) Auto Neutrophil (test code = NEUT) 53.8 % 36-70 N Lymphocyte (test code = LYMPH) 34.0 % 12-44 N Monocyte (test code = MONO) 7.4 % 0-11 N Eosinophil (test code = EOS) 4.0 % 0-7 N Basophil (test code = BASO) 0.7 % 0-2 N Neutro Abs (test code = ANEUT) 4.3 K/cumm 1.6-7.4 N Lymph Abs (test code = ALYMPH) 2.7 K/cumm 0.5-4.6 N [place] Abs (test code = AMONO) 0.6 K/cumm 0.0-1.2 N Eos Abs (test code = AEOS) 0.32 K/cumm 0.00-0.74 N Baso Abs (test code = ABASO) 0.1 K/cumm 0.00-0.21 N Lipid [id number] 06:15:00 Test Item Value Reference Range Interpretation Comments Cholesterol (test 133 mg/dL 0-200 N code = CHOL) Triglycerides (test 164 mg/dL 9-200 N code = TRIG) HDL (test code = 31 mg/dL 40-60 L HDL) Chol/HDL (test code 4.3 Ratio 0.0-5.0 N = CHOLPHDL) LDL, Calculated 69 0-130 N (NOTE)RISK O F HEART (test code = LDLC) DISEASEPu blished by [place] Heart AssociationAnal yte Optim al Boderline Increased RiskC HOL <200 200-239 >240TRI G <150 150-199 >200HDL Male: >60 <40HDL Female: >60 <50 LDL < 100 130-15 9 >160 LDL NEAR OPTIMAL IS 100- 129 VLDL (test code = 33 mg/dL 5-40 N VLDL) LDL/HDL (test code = 2 LDLPHDL) POC Glucose, [id number] 17:14:00 Test Item Value Reference Range Interpretation Comments POC Glucose (test 129 mg/dL 70-115 H If you con cash sales audit clerk your code = POCGLUC) patient crit ically ill, the [place] Accu- Chek InformII meters hould not be used for Glu cose determinations. Draw a venous Glucose and send to the Main Lab for Analysis. RPR, [id number] 12:26:00 Test Item Value Reference Range Interpretation Comments RPR (test code = RPR) Non-Reactive Non-Reactive N POC Glucose, [id number] 12:05:00 Test Item Value Reference Range Interpretation Comments POC Glucose (test 173 mg/dL 70-115 H If you con cash sales audit clerk your code = POCGLUC) patient crit ically ill, the [place] Accu- Chek InformII meters hould not be used for Glu cose determinations. Draw a venous Glucose and send to the Main Lab for Analysis. POC Glucose, [id number] 07:57:00 Test Item Value Reference Range Interpretation Comments POC Glucose (test 144 mg/dL 70-115 H If you con cash sales audit clerk your code = POCGLUC) patient crit ically ill, the [place] Accu- Chek InformII meters hould not be used for Glu cose determinations. Draw a venous Glucose and send to the Main Lab for Analysis. POC Glucose, [id number] 06:19:00 Test Item Value Reference Range Interpretation Comments POC Glucose (test 151 mg/dL 70-115 H Notify RN or MDIf you code = POCGLUC) consider you r patient critically ill, the [place] Accu-Chek InformII metershould not be used for Glucose determinations. Draw a venous Glucose and send to the Main Lab for Analysis. Thyroid Stimulating Hormone (TSH)2017-07-02 23:58:00 Test Item Value Reference Range Interpretation Comments TSH (test code = TSH) 2.08 mIU/mL 0.270-4.200 N Lipid [id number] 23:52:00 Test Item Value Reference Range Interpretation Comments Cholesterol (test 171 mg/dL 0-200 N code = CHOL) Triglycerides (test 171 mg/dL 9-200 N code = TRIG) HDL (test code = 37 mg/dL 40-60 L HDL) Chol/HDL (test code 4.6 Ratio 0.0-5.0 N = CHOLPHDL) LDL, Calculated 100 0-130 N (NOTE)RISK O F HEART (test code = LDLC) DISEASEPu blished by [place] Heart AssociationAnal yte Optim al Boderline Increased RiskC HOL <200 200-239 >240TRI G <150 150-199 >200HDL Male: >60 <40HDL Female: >60 <50 LDL < 100 130-15 9 >160 LDL NEAR OPTIMAL IS 100- 129 VLDL (test code = 34 mg/dL 5-40 N VLDL) LDL/HDL (test code = 3 LDLPHDL) POC Glucose, [id number] 20:03:00 Test Item Value Reference Range Interpretation Comments POC Glucose (test 221 mg/dL 70-115 H If you con cash sales audit clerk your code = POCGLUC) patient crit ically ill, the [place] Accu- Chek InformII meters hould not be used for Glu cose determinations. Draw a venous Glucose and send to the Main Lab for Analysis. POC Glucose, [id number] 16:47:00 Test Item Value Reference Range Interpretation Comments POC Glucose (test 304 mg/dL 70-115 H If you con cash sales audit clerk your code = POCGLUC) patient crit ically ill, the [place] Accu- Chek InformII meters hould not be used for Glu cose determinations. Draw a venous Glucose and send to the Main Lab for Analysis. POC Glucose, [id number] 15:20:00 Test Item Value Reference Range Interpretation Comments POC Glucose (test 368 mg/dL 70-115 H If you con cash sales audit clerk your code = POCGLUC) patient crit ically ill, the [place] Accu- Chek InformII meters hould not be used for Glu cose determinations. Draw a venous Glucose and send to the Main Lab for Analysis. [id number] 08:27:00 Test Item Value Reference Range Interpretation Comments Amphetamine (test Negative Negative N For diagno stic code = AMPH) purposes only, positive result s should always b e assessedin conjunctionwith the patient's medic al history,clinica l examination and otherfindings.T o fulfill legal requirements, a more specific altern ate chemical method must be used inorder to obtain a Confirmed lauren lytical result. GC/MS i s the preferred confi rmatory method. Barbiturates (test Negative Negative N code = MARYLIN) Benzodiazepine (test Negative Negative N code = DEVON) Cocaine (test code = Negative Negative N COCA) Methadone (test code Negative Negative N = MTHD) Opiates (test code = Negative Negative N OPIA) PCP (test code = PCP) Negative Negative N Propoxyphene (test Negative Negative N code = PROPOX) THC (test code = THC) Negative Negative N Alcohol, Urine (test <0.01 g/dL 0.00-0.01 N code = ETOHU) Urinalysis [id number] 07:59:00 Test Item Value Reference Range Interpretation Comments Color (test code = COLOR) Yellow Yellow,Straw,Pl N yellow Clarity (test code = Clear Clear N CLAR) Specific [place] (test 1.026 1.001-1.035 N code = SPGR) pH (test code = PH) 6.0 5.0-9.0 N Ketone (test code = KET) Negative mg/dL Negative N Glucose (test code = 1000 mg/dL Negative A GLUCUR) Protein (test code = 25 mg/dL Negative A PROT) Bilirubin (test code = Negative mg/dL Negative N BILI) Occult Blood (test code = Moderate Negative A UDOB) Urobilinogen (test code = 0.2 mg/dL 0.2-1.0 N UROB) Nitrite (test code = NIT) Negative Negative N Leuk Esterase (test code Negative Negative N = LEUK) Micros Exam (test code = Indicated MEXAM) Epithelial Cells (test 6-9 /LPF 0-30 A code = EPI) WBC, Urine (test code = 3-5 /HPF 0-5 A UWBC) RBC, Urine (test code = 0-3 /HPF 0-5 A URBC) Bacteria (test code = Few /HPF BACT) POC Glucose, [id number] 07:23:00 Test Item Value Reference Range Interpretation Comments POC Glucose (test 174 mg/dL 70-115 H If you con cash sales audit clerk your code = POCGLUC) patient crit ically ill, the [place] Accu- Chek InformII meters hould not be used for Glu cose determinations. Draw a venous Glucose and send to the Main Lab for Analysis. [id number] 06:52:00 Test Item Value Reference Range Interpretation Comments Acetone [Serum] (test code = Negative Negative N ACETONE) Comprehensive Metabolic [id number] 06:19:00 Test Item Value Reference Range Interpretation Comments Sodium (test code = 134 mmol/L 135-145 L NA) Potassium (test 3.9 mmol/L 3.5-5.1 N code = K) Chloride (test code 96 mmol/L 98-105 L = CL) Carbon Dioxide 26 mmol/L 22-29 N (test code = CO2) Glucose (test code 362 mg/dL 70-115 H = GLU) Blood Urea Nitrogen 20 mg/dL 6-20 N (test code = BUN) Creatinine (test 1.1 mg/dL 0.7-1.2 N code = CREAT) Calcium (test code 9.2 mg/dL 8.3-10.5 N = CA) Prot Total (test 7.6 g/dL 6.4-8.3 N code = TP) Albumin (test code 4.0 g/dL 3.5-5.2 N = ALB) A/G Ratio (test 1.1 Ratio code = AGRATIO) Globulin (test code 3.6 2.9-3.1 H = GLOB) Bili Total (test 0.2 mg/dL 0.1-0.9 N code = TBIL) Alk Phos (test code 141 U/L 40-129 H = APHOS) AST (test code = 8 U/L 1-40 N AST) ALT (test code = 9 U/L 1-41 N ALT) BUN/Creatinine 18.2 Ratio (test code = BCRATIO) Anion Gap (test 12 mmol/L 7-16 N code = AGAP) Estimated GFR (test >60 eGFR (es timated code = GFR) mL/min/1.73m2 Glomerular Pillo tration Rate) is an est imated value,calculate d from the patient's s abida creatinine usin g the MDRD equation.I t is NOT the patient 's actual GFR. The eGFR provides a more clinicallyusefu l measure of kidn ey disease than se rum creatinine alone.This calculation adrien es sex and race into account, if the informationis provided. If th e race is not provided , and the patient isAfrican-Ameri can, multiply by 1.2 12. If sex is not prov ided, and thepatient is female, multipl y by 0.742. Results for patients <18 ye ars ofage have not been validated by th e MDRD study and shoul d be interpretedwith caution.eGFR Re sult Interpretation: eGFR > or = 60 is in t he Normal RangeeGF R < 60 may mean kidney diseaseeGFR < 1 5 may mean kidney failureRange s recommended by the National Kidney Foundation,http ://nkd ep.nih.gov CBC with [id number] 06:00:00 Test Item Value Reference Range Interpretation Comments WBC (test code = WBC) 15.8 K/cumm 4.4-10.5 H RBC (test code = RBC) 4.83 M/cumm 4.10-5.70 N Hemoglobin (test code = HGB) 11.9 gm/dL 13.4-17.4 L Hematocrit (test code = HCT) 37.5 % 38.7-52.0 L MCV (test code = MCV) 77.7 fL 80-100 L MCH (test code = MCH) 24.6 pg 27.0-32.5 L MCHC (test code = MCHC) 31.6 g/dL 32.0-37.5 L RDW (test code = RDW) 14.9 % 11.5-14.5 H Platelet Count (test code = 418 K/cumm 140-440 N PLTCT) MPV (test code = MPV) 7.2 fL Diff Method (test code = DIFFM) Auto Neutrophil (test code = NEUT) 72.8 % 36-70 H Lymphocyte (test code = LYMPH) 19.5 % 12-44 N Monocyte (test code = MONO) 5.5 % 0-11 N Eosinophil (test code = EOS) 1.8 % 0-7 N Basophil (test code = BASO) 0.4 % 0-2 N Neutro Abs (test code = ANEUT) 11.5 K/cumm 1.6-7.4 H Lymph Abs (test code = ALYMPH) 3.1 K/cumm 0.5-4.6 N [place] Abs (test code = AMONO) 0.9 K/cumm 0.0-1.2 N Eos Abs (test code = AEOS) 0.29 K/cumm 0.00-0.74 N Baso Abs (test code = ABASO) 0.1 K/cumm 0.00-0.21 N POC Glucose, [id number] 05:52:00 Test Item Value Reference Range Interpretation Comments POC Glucose (test 342 mg/dL 70-115 H If you con cash sales audit clerk your code = POCGLUC) patient crit ically ill, the [place] Accu- Chek InformII meters hould not be used for Glu cose determinations. Draw a venous Glucose and send to the Main Lab for Analysis.
[2020-04-15] MEDS ORDERED: FENTANYL CITR 100 MCG/2 ML ONE (19:23)
[2020-04-15] MEDS ORDERED: NA CHLORIDE 0.9% 1,000 ML ONE ×2 (19:23→21:30)
--- NOTE | 2020-04-15 19:53 | RAD REPORT ---
EXAM DESCRIPTION: RAD - Foot Left 3 View - 04/15/2020 7:43 pm CLINICAL HISTORY: PAIN COMPARISON: Foot Left 3 View dated 07/01/2019; Foot Left 3 View dated 06/09/2019 FINDINGS: Evidence of prior amputation of the majority of the fifth metatarsal and fifth toe. Irregu lar deformity of the base of the second, third and fourth metatarsals again seen, with interval bony bridging noted since the 2019 comparative study. Moderate soft tissue swelling is seen along the dors um of the foot. No definitive abnormality seen to indicate osteomyelitis by plain radiograph.
[2020-04-15 19:56] LABS: Absolute Lymphocytes (CBC) 2.7 K/uL (0.7-4.9); Hematocrit 38.4 % (39.6-49.0); Lymphocytes % 27.5 % (15.3-44.8); MPV 7.9 fL (7.6-11.3); RBC Red Blood Cell Count 5.14 M/uL (4.33-5.43)
[2020-04-15 20:17] LABS: ALT/SGPT 18 U/L (12-78); AST/SGOT 12 U/L (15-37); Alkaline Phosphatase 140 U/L (45-117); BUN Blood Urea Nitrogen 7 mg/dL (7-18); Bicarbonate 30 mmol/L (21-32); Bilirubin Direct < 0.1 mg/dL (0-0.2); Bilirubin Total 0.3 mg/dL (0.2-1.0); Glucose Level 378 mg/dL (74-106); Protein, Total 7.9 g/dL (6.4-8.2); Sodium Level 132 mmol/L (136-145)
[2020-04-15] MEDS ORDERED: POTASSIUM 25 MEQ EFFERV TAB ONE (20:33)
[2020-04-15] MEDS ORDERED: levoFLOXacin 750 MG TAB ONE (20:33)
[2020-04-15] MEDS ORDERED: INSULIN -REGULAR HUMAN 50 UNIT/0.5 ML ML ONE (20:34)
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
[2020-04-15 22:33] VITALS: TEMP 97.5
[2020-04-15 22:35] VITALS: O2SAT 100
[2020-04-15 22:37] VITALS: BP 121/94
== END 2020-04-15 22:26 | disposition home or self-care (01) ==
LOC: ER 17:33
DX: S91.302A Unspecified open wound, left foot, initial encounter (principal); F17.210 Nicotine dependence, cigarettes, uncomplicated; E11.9 Type 2 diabetes mellitus without complications; Z88.3 Allergy status to other anti-infective agents
CPT/HCPCS: 96361; 87040 ×2; 85025; 80048; 36415; 82947 ×2; 80076; 84145; 73630; 96375; 96374; 99284; J3010; J7030 ×2

== ENCOUNTER 2020-04-19 04:43 | Emergency (ER) | payer OTHER ==
--- OUTSIDE RECORDS SUMMARY | 2020-04-19 04:45 | XMS REPORT | Clinical Summary ---
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
--- OUTSIDE RECORDS SUMMARY | 2020-04-19 04:50 | XMS REPORT | Continuity of Care Document ---
:1985 Author Organization [facility] t Address [address] [place] [address] Care Team Providers Name Role Phone UNKNOWN [...] s to drug Meperidi Propensi Active GI Headache, Julio ston ne ty to Intolerance [...] Quantity Comments Source History of Cigarette Smoker [place] [facility] tobacco use History [facility] Alcohol Std Drinks History [facility] Alcohol Binge Sex Assigned At [place] [facility] Alcohol intake 2018-11-12 2018-11-12 Current [facility]ist 00:00:00 00:00:00 non-drinker of alcohol (finding) History SDOH 2018-11-12 2018-11-12 1 [place] [facility] Alcohol Frequency 00:00:00 00:00:00 Smoking Status Start Date Stop Date Source Current every day smoker 2018-11-12 00:00:00 [facility] Medications Ordered Filled Start Stop Current Ordering Indication Dosage Frequency Signature Comments Components Source Medication Medication Date Date Medication? Clinician (SIG) Name Name gabapentin Yes 800mg [id number] Take 800 [place] (NEURONTIN) 3-06 [id number] mg by M ethodi 800 mg 18:17: [...] Source Name Name FLUCELVAX QUAD PF 2018-11-13 [facility] 00:00:00 [facility] Procedures This patient has no known procedures. Plan of Care Planned Activity Planned Date Details Comments Source Future Scheduled 2020-04-15 [place]ZA VACCINE [place] [facility] 00:00:00 [code = INFLUENZA VACCINE] Future Scheduled 1994 DIABETIC FOOT EXAM [place] [facility] 00:00:00 [code = DIABETIC FOOT EXAM] Future Scheduled 1994 URINE MICROALBUMIN [place] [facility] 00:00:00 [code = URINE MICROALBUMIN] Future Scheduled 1984 DIABETIC RETINAL EYE [facility] 00:00:00 EXAM [code = DIABETIC RETINAL EYE EXAM] Encounters Start End Encounter Admission Attending Care Care Encounter Source Date/Time Date/Time Type Type Clinicians Facility Department ID 2017-12-16 Inpatient [facility] [id number] [facility] 09:23:00 [facility] 2019-08-12 2019-08-17 Inpatient [facility] [id number] [facility] 00:12[facility]00 14:40:00 [facility] 2017-07-02 2017-07-07 Inpatient Luis Alfredo [facility] [id number] 14:57:00 22:44:00 [facility] Results Test Description Test Time Test Comments Results Result Comments Source ANAEROBIC CULTURE 2019-08-21 14:27:00 Test Item Value Reference Range Interpretation Comme nts Culture Observations (test code = COB1) NO ANAEROBES ISOLATED AT 5 DAYS. CULTURE HELD FOR 5 DAYS ANAEROBIC [id number] 14:27:00 Test Item Value Reference Range Interpretation Comments Culture Observations NO ANAEROBES ISOLATED (test code = COB1) AT 5 DAYS. CULTURE HELD FOR 5 DAYS WOUND/SKIN/ABS.&GRAMSTAIN [id number] 10:33:00 Test Item Value Reference Range Interpretation Comments Direct Exam FEW WHITE BLOOD CELLS (test code = SEEN DE1) Direct Exam NO ORGANISMS SEEN (test code = DE2) Isolate 1 Coagulase negative REFER TO #[id number] (test code = staphylococcus FOR IDENTIFIC ATION ISO1) AND SUSCEPTIBIL ITY WOUND/SKIN/ABS.&GRAMSTAIN [id number] 10:32:00 Test Item Value Reference Range Interpretation Comments Direct Exam (test code NO WHITE BLOOD CELLS = DE1) SEEN Direct Exam (test code NO ORGANISMS SEEN = DE2) Isolate 1 (test code = Kocuria kristinae ISO1) GLUCOMETER GLUCOSE- LAB USE [id number] 11:30:00 Test Item Value Reference Range Interpretation Comments GLUCOMETER (test code 275 mg/dL 70-100 H CLEANE D METERMeter ID: = GMG) [id number] tor: 9888 LORETTA CALDERON TTSUSAN BLOOD [id number] 07:35:00 Test Item Value Reference Range Interpretation [...] 8.3 mg/dL 8.3-9.5 GLUCOMETER GLUCOSE- LAB USE [id number] 06:05:00 Test Item Value Reference Range Interpretation Comments GLUCOMETER (test code 173 mg/dL 70-100 H CLEANE D METERMeter ID: = GMG) [id number] tor: 9910 IS[address] BYRD CBC (INCLUDES AUTOMATED DIFFERENTIAL)*[id number] 05:47:00 Test Item Value Reference Range Interpretation [...] H CLEANE D METERMeter ID: = GMG) [id number] tor: 9999 JAYASREE VASUPILLAI GLUCOMETER GLUCOSE- LAB USE [id number] 16:17:00 Test Item Value Reference Range Interpretation Comments GLUCOMETER (test 306 mg/dL 70-100 H DAILY MAINT ENANCEMeter code = GMG) ID: [id number] perator: [id number] JAYASREE V ASUPILLAI GLUCOMETER GLUCOSE- LAB USE [id number] 12:08:00 Test Item Value Reference Range Interpretation Comments GLUCOMETER (test code = 241 mg/dL 70-100 H Mete r ID: GMG) [id number] tor: 9830 OZZIE TAA GLUCOMETER GLUCOSE- LAB USE [id number] 09:52:00 Test Item Value Reference Range Interpretation Comments GLUCOMETER (test 239 mg/dL 70-100 H DAILY MAINT ENANCEMeter code = GMG) ID: [id number] perator: [id number] JAYASREE V ASUPILLAI COMPREHENSIVE METABOLIC [...] 31 IU/L <=78 GLUCOMETER GLUCOSE- LAB USE [id number] 05:14:00 Test Item Value Reference Range Interpretation Comments GLUCOMETER (test code 194 mg/dL 70-100 H CLEANE D METERMeter ID: = GM) [id number] tor: 9581 LEANNE CAMILA NSON PRO TIME [...] Order Code is ANTI-XA CBC (INCLUDES AUTOMATED DIFFERENTIAL)*[id number] 02:26:00 Test Item Value Reference Range Interpretation [...] = NORMAL WRBCMOR) GLUCOMETER GLUCOSE- LAB USE [id number] 20:26:00 Test Item Value Reference Range Interpretation Comments GLUCOMETER (test code 360 mg/dL 70-100 H CLEANE D METERMeter ID: = GMG) [id number] tor: 9588 DOC BABCOCKU GLUCOMETER GLUCOSE- LAB USE [id number] 16:22:00 Test Item Value Reference Range Interpretation Comments GLUCOMETER (test code = 246 mg/dL 70-100 H Mete r ID: GMG) [id number] tor: 9905 RICHARD NEVESO GLUCOMETER GLUCOSE- LAB USE [id number] 11:54:00 Test Item Value Reference Range Interpretation Comments GLUCOMETER (test code = 241 mg/dL 70-100 H Mete r ID: GMG) [id number] tor: 9924 OFELIA QUINTANA GLUCOMETER GLUCOSE- LAB USE [id number] 05:11:00 Test Item Value Reference Range Interpretation Comments GLUCOMETER (test 314 mg/dL 70-100 H DAILY MAINT ENANCEMeter code = GMG) ID: [id number] perator: [id number] JAYASREE V ASUPILLAI GLUCOMETER GLUCOSE- LAB USE [id number] 19:43:00 Test Item Value Reference Range Interpretation Comments GLUCOMETER (test 288 mg/dL 70-100 H DAILY MAINT ENANCEMeter code = GMG) ID: [id number] perator: [id number] JAYASREE V ASUPILLAI GLUCOMETER GLUCOSE- LAB USE [id number] 16:50:00 Test Item Value Reference Range Interpretation Comments GLUCOMETER (test 186 mg/dL 70-100 H DAILY MAINT ENANCEMeter code = GMG) ID: [id number] perator: [id number] OFELIA Angelo ICKERSON WOUND/SKIN/ABS.&GRAMSTAIN [id number] 11:53:00 Test Item Value Reference Interpretation Comments [...] ARE EXTREMELY RARE. GLUCOMETER GLUCOSE- LAB USE [id number] 11:51:00 Test Item Value Reference Range Interpretation Comments GLUCOMETER (test code = 181 mg/dL 70-100 H Mete r ID: GMG) [id number] tor: 9905 RICHARD COOK MACHO GLUCOMETER GLUCOSE- LAB USE [id number] 06:08:00 Test Item Value Reference Range Interpretation Comments GLUCOMETER (test code = 264 mg/dL 70-100 H Mete r ID: GMG) [id number] tor: 2014 EVELIN MENDOZAO GLUCOMETER GLUCOSE- LAB USE [id number] 19:56:00 Test Item Value Reference Range Interpretation Comments GLUCOMETER (test code 278 mg/dL 70-100 H CLEANE D METERMeter ID: = GMG) [id number] tor: 9588 DOC SHARIF GLUCOMETER GLUCOSE- LAB USE [id number] 16:30:00 Test Item Value Reference Range Interpretation Comments GLUCOMETER (test code = 456 mg/dL 70-100 HH Mete r ID: GMG) [id number] tor: 9169 BRI MIRT O GLUCOMETER GLUCOSE- LAB USE [id number] 12:08:00 Test Item Value Reference Range Interpretation Comments GLUCOMETER (test code = 302 mg/dL 70-100 H Mete r ID: GMG) [id number] tor: 9924 OFELIA MARIANO MRI LOW EXT [...] with nonunion atthe second metatarsal fracture. BLOOD [id number] 07:42:00 Test Item Value Reference Interpretation Comments [...] 31A) 18 IU/L <=78 CBC (INCLUDES AUTOMATED DIFFERENTIAL)*[id number] 05:59:00 Test Item Value Reference Range Interpretation [...] = NORMAL WRBCMOR) GLUCOMETER GLUCOSE- LAB USE [id number] 04:53:00 Test Item Value Reference Range Interpretation Comments GLUCOMETER (test code = 374 mg/dL 70-100 H Mete r ID: GMG) [id number] tor: 9908 INO KHOW DEANNA GLUCOMETER GLUCOSE- LAB USE [id number] 23:49:00 Test Item Value Reference Range Interpretation Comments GLUCOMETER (test code = 192 mg/dL 70-100 H Mete r ID: GMG) [id number] tor: 4845 [facility] N GLUCOMETER GLUCOSE- LAB USE [id number] 19:32:00 Test Item Value Reference Range Interpretation Comments GLUCOMETER (test code = 183 mg/dL 70-100 H Mete r ID: GMG) [id number] tor: 9908 INO KHOW DEANNA GLUCOMETER GLUCOSE- LAB USE [id number] 16:43:00 Test Item Value Reference Range Interpretation Comments GLUCOMETER (test code = 244 mg/dL 70-100 H Mete r ID: GMG) [id number] tor: 9924 OFELIA QUINTANA GLUCOMETER GLUCOSE- LAB USE [id number] 12:15:00 Test Item Value Reference Range Interpretation Comments GLUCOMETER (test 331 mg/dL 70-100 H DAILY MAINT ENANCEMeter code = GMG) ID: [id number] perator: 9924 OFELIA BASHIR GLUCOMETER GLUCOSE- LAB USE [id number] 08:40:00 Test Item Value Reference Range Interpretation Comments GLUCOMETER (test code 350 mg/dL 70-100 H Meter ID: = GMG) [id number] tor: 3103 MAYRA NATHANUEVA COMPREHENSIVE METABOLIC LARA [...] 31A) 18 IU/L <=78 CBC (INCLUDES AUTOMATED DIFFERENTIAL)*[id number] 05:50:00 Test Item Value Reference Range Interpretation [...] = NORMAL WRBCMOR) GLUCOMETER GLUCOSE- LAB USE [id number] 03:06:00 Test Item Value Reference Range Interpretation Comments GLUCOMETER (test code 497 mg/dL 70-100 HH Meter ID: = GMG) [id number] tor: 3103 MAYRA NATHANUEVA GLUCOMETER GLUCOSE- LAB USE [id number] 00:19:00 Test Item Value Reference Range Interpretation Comments GLUCOMETER (test code 515 mg/dL 70-100 HH Meter ID: = GMG) [id number] tor: 3103 MAYRA NATHANUEVA GLUCOMETER GLUCOSE- LAB USE [id number] 22:09:00 Test Item Value Reference Range Interpretation Comments GLUCOMETER (test code = 591 mg/dL 70-100 HH Mete r ID: GMG) [id number] tor: 9550 MARVIN DAVIES URINALYSIS WITH MICRO [...] 31A) 17 IU/L <=78 CBC (INCLUDES AUTOMATED DIFFERENTIAL)*[id number] 19:52:00 Test Item Value Reference Range Interpretation [...] XR FOOT LEFT COMPLETE 3 VIEWS*WW*2019-08-11 19:20:34LOCATION: [id number]: 34-year-old male who presents with a nonhealing [...] see above comments for more details.POC Glucose, [id number] 07:22:00 Test Item Value Reference Range Interpretation Comments POC Glucose (test 161 mg/dL 70-115 H Notify RN or MDIf you code = POCGLUC) consider you r patient critically ill, the [place] Accu-Chek InformII metershould not be used for Glucose determinations. Draw a venous Glucose and send to the Main Lab for Analysis. Comprehensive Metabolic [id number] 07:08:00 Test Item Value Reference Range Interpretation [...] National Kid[employer] Foundation,http ://nkd ep.nih.gov CBC with [id number] 06:48:00 Test Item Value Reference Range Interpretation [...] code = ALYMPH) 4.5 K/cumm 0.5-4.6 N [place] Abs (test code = AMONO) 0.6 K/cumm 0.0-1.2 N Eos Abs (test code = AEOS) 0.18 K/cumm 0.00-0.74 N Baso Abs (test code = ABASO) 0.1 K/cumm 0.00-0.21 N Microcytosis (test code = MICRO) Slight Hypochromic (test code = HYPO) Slight POC Glucose, [id number] 19:07:00 Test Item Value Reference Range Interpretation Comments POC Glucose (test 227 mg/dL 70-115 H If you con termite treater your code = POCGLUC) patient crit ically ill, the [place] Accu- Chek InformII meters hould not be used for Glu cose determinations. Draw a venous Glucose and send to the Main Lab for Analysis. POC Glucose, [id number] 16:11:00 Test Item Value Reference Range Interpretation Comments POC Glucose (test 266 mg/dL 70-115 H If you con termite treater your code = POCGLUC) patient crit ically ill, the [place] Accu- Chek InformII meters hould not be used for Glu cose determinations. Draw a venous Glucose and send to the Main Lab for Analysis. POC Glucose, [id number] 11:36:00 Test Item Value Reference Range Interpretation Comments POC Glucose (test 69 mg/dL 70-115 L If you con termite treater your code = POCGLUC) patient crit ically ill, the [place] Accu- Chek InformII meters hould not be used for Glu cose determinations. Draw a venous Glucose and send to the Main Lab for Analysis. POC Glucose, [id number] 07:45:00 Test Item Value Reference Range Interpretation Comments POC Glucose (test 234 mg/dL 70-115 H If you con termite treater your code = POCGLUC) patient crit ically ill, the [place] Accu- Chek InformII meters hould not be used for Glu cose determinations. Draw a venous Glucose and send to the Main Lab for Analysis. POC Glucose, [id number] 19:15:00 Test Item Value Reference Range Interpretation Comments POC Glucose (test 148 mg/dL 70-115 H If you con termite treater your code = POCGLUC) patient crit ically ill, the [place] Accu- Chek InformII meters hould not be used for Glu cose determinations. Draw a venous Glucose and send to the Main Lab for Analysis. POC Glucose, [id number] 15:37:00 Test Item Value Reference Range Interpretation Comments POC Glucose (test 133 mg/dL 70-115 H If you con termite treater your code = POCGLUC) patient crit ically ill, the [place] Accu- Chek InformII meters hould not be used for Glu cose determinations. Draw a venous Glucose and send to the Main Lab for Analysis. POC Glucose, [id number] 11:10:00 Test Item Value Reference Range Interpretation Comments POC Glucose (test 203 mg/dL 70-115 H Notify RN or MDIf you code = POCGLUC) consider you r patient critically ill, the [place] Accu-Chek InformII metershould not be used for Glucose determinations. Draw a venous Glucose and send to the Main Lab for Analysis. POC Glucose, [id number] 07:29:00 Test Item Value Reference Range Interpretation Comments POC Glucose (test 261 mg/dL 70-115 H Notify RN or MDIf you code = POCGLUC) consider you r patient critically ill, the [place] Accu-Chek InformII metershould not be used for Glucose determinations. Draw a venous Glucose and send to the Main Lab for Analysis. POC Glucose, [id number] 19:32:00 Test Item Value Reference Range Interpretation Comments POC Glucose (test 226 mg/dL 70-115 H If you con termite treater your code = POCGLUC) patient crit ically ill, the [place] Accu- Chek InformII meters hould not be used for Glu cose determinations. Draw a venous Glucose and send to the Main Lab for Analysis. POC Glucose, [id number] 15:58:00 Test Item Value Reference Range Interpretation Comments POC Glucose (test 138 mg/dL 70-115 H Notify RN or MDIf you code = POCGLUC) consider you r patient critically ill, the [place] Accu-Chek InformII metershould not be used for Glucose determinations. Draw a venous Glucose and send to the Main Lab for Analysis. POC Glucose, [id number] 11:48:00 Test Item Value Reference Range Interpretation Comments POC Glucose (test 154 mg/dL 70-115 H Notify RN or MDIf you code = POCGLUC) consider you r patient critically ill, the [place] Accu-Chek InformII metershould not be used for Glucose determinations. Draw a venous Glucose and send to the Main Lab for Analysis. POC Glucose, [id number] 07:23:00 Test Item Value Reference Range Interpretation Comments POC Glucose (test 131 mg/dL 70-115 H Notify RN or MDIf you code = POCGLUC) consider you r patient critically ill, the [place] Accu-Chek InformII metershould not be used for Glucose determinations. Draw a venous Glucose and send to the Main Lab for Analysis. POC Glucose, [id number] 19:38:00 Test Item Value Reference Range Interpretation Comments POC Glucose (test 160 mg/dL 70-115 H If you con termite treater your code = POCGLUC) patient crit ically ill, the [place] Accu- Chek InformII meters hould not be used for Glu cose determinations. Draw a venous Glucose and send to the Main Lab for Analysis. POC Glucose, [id number] 17:27:00 Test Item Value Reference Range Interpretation Comments POC Glucose (test 191 mg/dL 70-115 H If you con termite treater your code = POCGLUC) patient crit ically ill, the [place] Accu- Chek InformII meters hould not be used for Glu cose determinations. Draw a venous Glucose and send to the Main Lab for Analysis. POC Glucose, [id number] 14:19:00 Test Item Value Reference Range Interpretation Comments POC Glucose (test 252 mg/dL 70-115 H If you con termite treater your code = POCGLUC) patient crit ically ill, the [place] Accu- Chek InformII meters hould not be used for Glu cose determinations. Draw a venous Glucose and send to the Main Lab for Analysis. POC Glucose, [id number] 11:41:00 Test Item Value Reference Range Interpretation Comments POC Glucose (test 114 mg/dL 70-115 N If you con termite treater your code = POCGLUC) patient crit ically ill, the [place] Accu- Chek InformII meters hould not be used for Glu cose determinations. Draw a venous Glucose and send to the Main Lab for Analysis. POC Glucose, [id number] 05:58:00 Test Item Value Reference Range Interpretation Comments POC Glucose (test 347 mg/dL 70-115 H If you con termite treater your code = POCGLUC) patient crit ically ill, the [place] Accu- Chek InformII meters hould not be used for Glu cose determinations. Draw a venous Glucose and send to the Main Lab for Analysis. POC Glucose, [id number] 19:27:00 Test Item Value Reference Range Interpretation Comments POC Glucose (test 334 mg/dL 70-115 H Notify RN or MDIf you code = POCGLUC) consider you r patient critically ill, the [place] Accu-Chek InformII metershould not be used for Glucose determinations. Draw a venous Glucose and send to the Main Lab for Analysis. POC Glucose, [id number] 15:02:00 Test Item Value Reference Range Interpretation Comments POC Glucose (test 72 mg/dL 70-115 N If you con termite treater your code = POCGLUC) patient crit ically ill, the [place] Accu- Chek InformII meters hould not be used for Glu cose determinations. Draw a venous Glucose and send to the Main Lab for Analysis. POC Glucose, [id number] 12:14:00 Test Item Value Reference Range Interpretation Comments POC Glucose (test 110 mg/dL 70-115 N If you con termite treater your code = POCGLUC) patient crit ically ill, the [place] Accu- Chek InformII meters hould not be used for Glu cose determinations. Draw a venous Glucose and send to the Main Lab for Analysis. POC Glucose, [id number] 06:03:00 Test Item Value Reference Range Interpretation Comments POC Glucose (test 224 mg/dL 70-115 H If you con termite treater your code = POCGLUC) patient crit ically ill, the [place] Accu- Chek InformII meters hould not be used for Glu cose determinations. Draw a venous Glucose and send to the Main Lab for Analysis. POC Glucose, [id number] 19:29:00 Test Item Value Reference Range Interpretation Comments POC Glucose (test 300 mg/dL 70-115 H Notify RN or MDIf you code = POCGLUC) consider you r patient critically ill, the [place] Accu-Chek InformII metershould not be used for Glucose determinations. Draw a venous Glucose and send to the Main Lab for Analysis. POC Glucose, [id number] 16:00:00 Test Item Value Reference Range Interpretation Comments POC Glucose (test 283 mg/dL 70-115 H Notify RN or MDIf you code = POCGLUC) consider you r patient critically ill, the [place] Accu-Chek InformII metershould not be used for Glucose determinations. Draw a venous Glucose and send to the Main Lab for Analysis. RPR, [id number] 14:24:00 Test Item Value Reference Range Interpretation Comments RPR (test code = RPR) Non-Reactive Non-Reactive N POC Glucose, [id number] 11:09:00 Test Item Value Reference Range Interpretation [...] = TSH) 2.05 mIU/mL 0.270-4.200 N Lipid [id number] 08:56:00 Test Item Value Reference Range Interpretation Comments Cholesterol (test 215 mg/dL 0-200 H code = CHOL) Triglycerides (test 370 mg/dL 9-200 H code = TRIG) HDL (test code = 33 mg/dL 40-60 L HDL) Chol/HDL (test code 6.5 Ratio 0.0-5.0 H = CHOLPHDL) LDL, Calculated 108 0-130 N (NOTE)RISK O F HEART (test code = LDLC) DISEASEPu blished by Swedish Heart AssociationAnal yte Optim al Boderline Increased RiskC HOL <200 200-239 >240TRI G <150 150-199 >200HDL Male: >60 <40HDL Female: >60 <50 LDL < 100 130-15 9 >160 LDL NEAR OPTIMAL IS 100- 129 VLDL (test code = 74 mg/dL 5-40 H VLDL) LDL/HDL (test code = 3 LDLPHDL) POC Glucose, [id number] 05:44:00 Test Item Value Reference Range Interpretation Comments POC Glucose (test 229 mg/dL 70-115 H Notify RN or MDIf you code = POCGLUC) consider you r patient critically ill, the [place] Accu-Chek InformII metershould not be used for Glucose determinations. Draw a venous Glucose and send to the Main Lab for Analysis. POC Glucose, [id number] 11:20:00 Test Item Value Reference Range Interpretation Comments POC Glucose (test 160 mg/dL 70-115 H If you con termite treater your code = POCGLUC) patient crit ically ill, the [place] Accu- Chek InformII meters hould not be used for Glu cose determinations. Draw a venous Glucose and send to the Main Lab for Analysis. POC Glucose, [id number] 07:41:00 Test Item Value Reference Range Interpretation Comments POC Glucose (test 121 mg/dL 70-115 H If you con termite treater your code = POCGLUC) patient crit ically ill, the [place] Accu- Chek InformII meters hould not be used for Glu cose determinations. Draw a venous Glucose and send to the Main Lab for Analysis. POC Glucose, [id number] 21:24:00 Test Item Value Reference Range Interpretation Comments POC Glucose (test 108 mg/dL 70-115 N If you con termite treater your code = POCGLUC) patient crit ically ill, the [place] Accu- Chek InformII meters hould not be used for Glu cose determinations. Draw a venous Glucose and send to the Main Lab for Analysis. POC Glucose, [id number] 15:55:00 Test Item Value Reference Range Interpretation Comments POC Glucose (test 160 mg/dL 70-115 H Notify RN or MDIf you code = POCGLUC) consider you r patient critically ill, the [place] Accu-Chek InformII metershould not be used for Glucose determinations. Draw a venous Glucose and send to the Main Lab for Analysis. POC Glucose, [id number] 11:21:00 Test Item Value Reference Range Interpretation Comments POC Glucose (test 111 mg/dL 70-115 N If you con termite treater your code = POCGLUC) patient crit ically ill, the [place] Accu- Chek InformII meters hould not be used for Glu cose determinations. Draw a venous Glucose and send to the Main Lab for Analysis. POC Glucose, [id number] 08:06:00 Test Item Value Reference Range Interpretation Comments POC Glucose (test 135 mg/dL 70-115 H If you con termite treater your code = POCGLUC) patient crit ically ill, the [place] Accu- Chek InformII meters hould not be used for Glu cose determinations. Draw a venous Glucose and send to the Main Lab for Analysis. POC Glucose, [id number] 22:43:00 Test Item Value Reference Range Interpretation Comments POC Glucose (test 106 mg/dL 70-115 N If you con termite treater your code = POCGLUC) patient crit ically ill, the [place] Accu- Chek InformII meters hould not be used for Glu cose determinations. Draw a venous Glucose and send to the Main Lab for Analysis. POC Glucose, [id number] 16:42:00 Test Item Value Reference Range Interpretation Comments POC Glucose (test 96 mg/dL 70-115 N If you con termite treater your code = POCGLUC) patient crit ically ill, the [place] Accu- Chek InformII meters hould not be used for Glu cose determinations. Draw a venous Glucose and send to the Main Lab for Analysis. POC Glucose, [id number] 11:10:00 Test Item Value Reference Range Interpretation Comments POC Glucose (test 149 mg/dL 70-115 H Notify RN or MDIf you code = POCGLUC) consider you r patient critically ill, the [place] Accu-Chek InformII metershould not be used for Glucose determinations. Draw a venous Glucose and send to the Main Lab for Analysis. POC Glucose, [id number] 07:26:00 Test Item Value Reference Range Interpretation Comments POC Glucose (test 124 mg/dL 70-115 H If you con termite treater your code = POCGLUC) patient crit ically ill, the [place] Accu- Chek InformII meters hould not be used for Glu cose determinations. Draw a venous Glucose and send to the Main Lab for Analysis. POC Glucose, [id number] 21:16:00 Test Item Value Reference Range Interpretation Comments POC Glucose (test 164 mg/dL 70-115 H Notify RN or MDIf you code = POCGLUC) consider you r patient critically ill, the [place] Accu-Chek InformII metershould not be used for Glucose determinations. Draw a venous Glucose and send to the Main Lab for Analysis. POC Glucose, [id number] 16:34:00 Test Item Value Reference Range Interpretation Comments POC Glucose (test 100 mg/dL 70-115 N If you con termite treater your code = POCGLUC) patient crit ically ill, the [place] Accu- Chek InformII meters hould not be used for Glu cose determinations. Draw a venous Glucose and send to the Main Lab for Analysis. POC Glucose, [id number] 11:06:00 Test Item Value Reference Range Interpretation Comments POC Glucose (test 120 mg/dL 70-115 H If you con termite treater your code = POCGLUC) patient crit ically ill, the [place] Accu- Chek InformII meters hould not be used for Glu cose determinations. Draw a venous Glucose and send to the Main Lab for Analysis. POC Glucose, [id number] 07:30:00 Test Item Value Reference Range Interpretation Comments POC Glucose (test 80 mg/dL 70-115 N If you con termite treater your code = POCGLUC) patient crit ically ill, the [place] Accu- Chek InformII meters hould not be used for Glu cose determinations. Draw a venous Glucose and send to the Main Lab for Analysis. POC Glucose, [id number] 21:17:00 Test Item Value Reference Range Interpretation Comments POC Glucose (test 175 mg/dL 70-115 H Notify RN or MDIf you code = POCGLUC) consider you r patient critically ill, the [place] Accu-Chek InformII metershould not be used for Glucose determinations. Draw a venous Glucose and send to the Main Lab for Analysis. POC Glucose, [id number] 17:46:00 Test Item Value Reference Range Interpretation Comments POC Glucose (test 128 mg/dL 70-115 H If you con termite treater your code = POCGLUC) patient crit ically ill, the [place] Accu- Chek InformII meters hould not be used for Glu cose determinations. Draw a venous Glucose and send to the Main Lab for Analysis. POC Glucose, [id number] 11:35:00 Test Item Value Reference Range Interpretation Comments POC Glucose (test 134 mg/dL 70-115 H If you con termite treater your code = POCGLUC) patient crit ically ill, the [place] Accu- Chek InformII meters hould not be used for Glu cose determinations. Draw a venous Glucose and send to the Main Lab for Analysis. POC Glucose, [id number] 08:10:00 Test Item Value Reference Range Interpretation Comments POC Glucose (test 220 mg/dL 70-115 H If you con termite treater your code = POCGLUC) patient crit ically ill, the [place] Accu- Chek InformII meters hould not be used for Glu cose determinations. Draw a venous Glucose and send to the Main Lab for Analysis. Comprehensive Metabolic [id number] 06:52:00 Test Item Value Reference Range Interpretation [...] National Kidney Foundation,http ://nkd ep.nih.gov CBC with [id number] 06:34:00 Test Item Value Reference Range Interpretation [...] code = ALYMPH) 2.4 K/cumm 0.5-4.6 N [place] Abs (test code = AMONO) 0.7 K/cumm 0.0-1.2 N Eos Abs (test code = AEOS) 0.19 K/cumm 0.00-0.74 N Baso Abs (test code = ABASO) 0.1 K/cumm 0.00-0.21 N Microcytosis (test code = MICRO) Slight POC Glucose, [id number] 20:28:00 Test Item Value Reference Range Interpretation Comments POC Glucose (test 211 mg/dL 70-115 H If you con termite treater your code = POCGLUC) patient crit ically ill, the [place] Accu- Chek InformII meters hould not be used for Glu cose determinations. Draw a venous Glucose and send to the Main Lab for Analysis. POC Glucose, [id number] 17:09:00 Test Item Value Reference Range Interpretation Comments POC Glucose (test 146 mg/dL 70-115 H If you con termite treater your code = POCGLUC) patient crit ically ill, the [place] Accu- Chek InformII meters hould not be used for Glu cose determinations. Draw a venous Glucose and send to the Main Lab for Analysis. POC Glucose, [id number] 11:53:00 Test Item Value Reference Range Interpretation Comments POC Glucose (test 136 mg/dL 70-115 H If you con termite treater your code = POCGLUC) patient crit ically ill, the [place] Accu- Chek InformII meters hould not be used for Glu cose determinations. Draw a venous Glucose and send to the Main Lab for Analysis. POC Glucose, [id number] 07:57:00 Test Item Value Reference Range Interpretation Comments POC Glucose (test 143 mg/dL 70-115 H If you con termite treater your code = POCGLUC) patient crit ically ill, the [place] Accu- Chek InformII meters hould not be used for Glu cose determinations. Draw a venous Glucose and send to the Main Lab for Analysis. POC Glucose, [id number] 20:38:00 Test Item Value Reference Range Interpretation Comments POC Glucose (test 152 mg/dL 70-115 H Notify RN or MDIf you code = POCGLUC) consider you r patient critically ill, the [place] Accu-Chek InformII metershould not be used for Glucose determinations. Draw a venous Glucose and send to the Main Lab for Analysis. POC Glucose, [id number] 16:49:00 Test Item Value Reference Range Interpretation Comments POC Glucose (test 171 mg/dL 70-115 H Notify RN or MDIf you code = POCGLUC) consider you r patient critically ill, the [place] Accu-Chek InformII metershould not be used for Glucose determinations. Draw a venous Glucose and send to the Main Lab for Analysis. POC Glucose, [id number] 11:10:00 Test Item Value Reference Range Interpretation Comments POC Glucose (test 160 mg/dL 70-115 H Notify RN or MDIf you code = POCGLUC) consider you r patient critically ill, the [place] Accu-Chek InformII metershould not be used for Glucose determinations. Draw a venous Glucose and send to the Main Lab for Analysis. POC Glucose, [id number] 07:36:00 Test Item Value Reference Range Interpretation Comments POC Glucose (test 126 mg/dL 70-115 H If you con termite treater your code = POCGLUC) patient crit ically ill, the [place] Accu- Chek InformII meters hould not be used for Glu cose determinations. Draw a venous Glucose and send to the Main Lab for Analysis. POC Glucose, [id number] 20:51:00 Test Item Value Reference Range Interpretation Comments POC Glucose (test 165 mg/dL 70-115 H Notify RN or MDIf you code = POCGLUC) consider you r patient critically ill, the [place] Accu-Chek InformII metershould not be used for Glucose determinations. Draw a venous Glucose and send to the Main Lab for Analysis. POC Glucose, [id number] 16:42:00 Test Item Value Reference Range Interpretation Comments POC Glucose (test 133 mg/dL 70-115 H If you con termite treater your code = POCGLUC) patient crit ically ill, the [place] Accu- Chek InformII meters hould not be used for Glu cose determinations. Draw a venous Glucose and send to the Main Lab for Analysis. POC Glucose, [id number] 11:19:00 Test Item Value Reference Range Interpretation Comments POC Glucose (test 250 mg/dL 70-115 H Notify RN or MDIf you code = POCGLUC) consider you r patient critically ill, the [place] Accu-Chek InformII metershould not be used for Glucose determinations. Draw a venous Glucose and send to the Main Lab for Analysis. Culture, [id number] 08:19:00Specimen: UrineCollected: 07/10/2017 12:47 Status: Final Last [...] the Main Lab for Analysis. POC Glucose, [id number] 20:55:00 Test Item Value Reference Range Interpretation Comments POC Glucose (test 140 mg/dL 70-115 H If you con termite treater your code = POCGLUC) patient crit ically ill, the [place] Accu- Chek InformII meters hould not be used for Glu cose determinations. Draw a venous Glucose and send to the Main Lab for Analysis. POC Glucose, [id number] 16:13:00 Test Item Value Reference Range Interpretation Comments POC Glucose (test 151 mg/dL 70-115 H Notify RN or MDIf you code = POCGLUC) consider you r patient critically ill, the [place] Accu-Chek InformII metershould not be used for Glucose determinations. Draw a venous Glucose and send to the Main Lab for Analysis. POC Glucose, [id number] 11:43:00 Test Item Value Reference Range Interpretation Comments POC Glucose (test 170 mg/dL 70-115 H Notify RN or MDIf you code = POCGLUC) consider you r patient critically ill, the [place] Accu-Chek InformII metershould not be used for Glucose determinations. Draw a venous Glucose and send to the Main Lab for Analysis. POC Glucose, [id number] 07:23:00 Test Item Value Reference Range Interpretation Comments POC Glucose (test 207 mg/dL 70-115 H Notify RN or MDIf you code = POCGLUC) consider you r patient critically ill, the [place] Accu-Chek InformII metershould not be used for Glucose determinations. Draw a venous Glucose and send to the Main Lab for Analysis. POC Glucose, [id number] 20:24:00 Test Item Value Reference Range Interpretation Comments POC Glucose (test 208 mg/dL 70-115 H If you con termite treater your code = POCGLUC) patient crit ically ill, the [place] Accu- Chek InformII meters hould not be used for Glu cose determinations. Draw a venous Glucose and send to the Main Lab for Analysis. POC Glucose, [id number] 17:14:00 Test Item Value Reference Range Interpretation Comments POC Glucose (test 158 mg/dL 70-115 H If you con termite treater your code = POCGLUC) patient crit ically ill, the [place] Accu- Chek InformII meters hould not be used for Glu cose determinations. Draw a venous Glucose and send to the Main Lab for Analysis. Urinalysis [id number] 13:04:00 Test Item Value Reference Range Interpretation Comments Color (test code = COLOR) Straw Yellow,Straw,Pl N yellow Clarity (test code = Clear Clear N CLAR) Specific [place] (test 1.010 1.001-1.035 N code = SPGR) [...] code = Not indicated MEXAM) POC Glucose, [id number] 11:48:00 Test Item Value Reference Range Interpretation Comments POC Glucose (test 135 mg/dL 70-115 H If you con termite treater your code = POCGLUC) patient crit ically ill, the [place] Accu- Chek InformII meters hould not be used for Glu cose determinations. Draw a venous Glucose and send to the Main Lab for Analysis. POC Glucose, [id number] 07:47:00 Test Item Value Reference Range Interpretation Comments POC Glucose (test 173 mg/dL 70-115 H If you con termite treater your code = POCGLUC) patient crit ically ill, the [place] Accu- Chek InformII meters hould not be used for Glu cose determinations. Draw a venous Glucose and send to the Main Lab for Analysis. Basic Metabolic [id number] 05:18:00 Test Item Value Reference Range Interpretation [...] National Kidney Foundation,http ://nkd ep.nih.gov CBC with [id number] 04:59:00 Test Item Value Reference Range Interpretation [...] code = ALYMPH) 2.7 K/cumm 0.5-4.6 N [place] Abs (test code = AMONO) 0.8 K/cumm 0.0-1.2 N Eos Abs (test code = AEOS) 0.26 K/cumm 0.00-0.74 N Baso Abs (test code = ABASO) 0.0 K/cumm 0.00-0.21 N POC Glucose, [id number] 20:59:00 Test Item Value Reference Range Interpretation Comments POC Glucose (test 199 mg/dL 70-115 H Notify RN or MDIf you code = POCGLUC) consider you r patient critically ill, the [place] Accu-Chek InformII metershould not be used for Glucose determinations. Draw a venous Glucose and send to the Main Lab for Analysis. POC Glucose, [id number] 16:26:00 Test Item Value Reference Range Interpretation Comments POC Glucose (test 170 mg/dL 70-115 H Notify RN or MDIf you code = POCGLUC) consider you r patient critically ill, the [place] Accu-Chek InformII metershould not be used for Glucose determinations. Draw a venous Glucose and send to the Main Lab for Analysis. POC Glucose, [id number] 11:41:00 Test Item Value Reference Range Interpretation Comments POC Glucose (test 246 mg/dL 70-115 H If you con termite treater your code = POCGLUC) patient crit ically ill, the [place] Accu- Chek InformII meters hould not be used for Glu cose determinations. Draw a venous Glucose and send to the Main Lab for Analysis. Glycosylated [id number] 07:39:00 Test Item Value Reference Range Interpretation Comments HBA1c (test code = HBA1C) 9.1 % 4.8-5.9 H POC Glucose, [id number] 07:36:00 Test Item Value Reference Range Interpretation Comments POC Glucose (test 206 mg/dL 70-115 H If you con termite treater your code = POCGLUC) patient crit ically ill, the [place] Accu- Chek InformII meters hould not be used for Glu cose determinations. Draw a venous Glucose and send to the Main Lab for Analysis. CBC with [id number] 06:09:00 Test Item Value Reference Range Interpretation [...] code = ALYMPH) 3.5 K/cumm 0.5-4.6 N [place] Abs (test code = AMONO) 1.0 K/cumm 0.0-1.2 N Eos Abs (test code = AEOS) 0.19 K/cumm 0.00-0.74 N Baso Abs (test code = ABASO) 0.1 K/cumm 0.00-0.21 N Microcytosis (test code = MICRO) Slight Comprehensive Metabolic [id number] 06:00:00 Test Item Value Reference Range Interpretation [...] the National Kidney Foundation,http ://nkd ep.nih.gov Magnesium, [id number] 06:00:00 Test Item Value Reference Range Interpretation Comments Magnesium (test code = MG) 2.2 mg/dL 1.7-2.5 N [id number] 06:00:00 Test Item Value Reference Range Interpretation Comments Phosphorus (test code = PO4) 2.8 mg/dL 2.70-4.50 N POC Glucose, [id number] 20:44:00 Test Item Value Reference Range Interpretation Comments POC Glucose (test 199 mg/dL 70-115 H If you con termite treater your code = POCGLUC) patient crit ically ill, the [place] Accu- Chek InformII meters hould not be used for Glu cose determinations. Draw a venous Glucose and send to the Main Lab for Analysis. POC Glucose, [id number] 16:28:00 Test Item Value Reference Range Interpretation Comments POC Glucose (test 242 mg/dL 70-115 H Notify RN or MDIf you code = POCGLUC) consider you r patient critically ill, the [place] Accu-Chek InformII metershould not be used for Glucose determinations. Draw a venous Glucose and send to the Main Lab for Analysis. POC Glucose, [id number] 13:37:00 Test Item Value Reference Range Interpretation Comments POC Glucose (test 131 mg/dL 70-115 H If you con termite treater your code = POCGLUC) patient crit ically ill, the [place] Accu- Chek InformII meters hould not be used for Glu cose determinations. Draw a venous Glucose and send to the Main Lab for Analysis. POC Glucose, [id number] 12:14:00 Test Item Value Reference Range Interpretation Comments POC Glucose (test 100 mg/dL 70-115 N If you con termite treater your code = POCGLUC) patient crit ically ill, the [place] Accu- Chek InformII meters hould not be used for Glu cose determinations. Draw a venous Glucose and send to the Main Lab for Analysis. POC Glucose, [id number] 07:30:00 Test Item Value Reference Range Interpretation Comments POC Glucose (test 123 mg/dL 70-115 H If you con termite treater your code = POCGLUC) patient crit ically ill, the [place] Accu- Chek InformII meters hould not be used for Glu cose determinations. Draw a venous Glucose and send to the Main Lab for Analysis. Basic Metabolic [id number] 06:05:00 Test Item Value Reference Range Interpretation [...] National Kidney Foundation,http ://nkd ep.nih.gov CBC with [id number] 05:44:00 Test Item Value Reference Range Interpretation [...] code = ALYMPH) 4.8 K/cumm 0.5-4.6 H [place] Abs (test code = AMONO) 0.8 K/cumm 0.0-1.2 N Eos Abs (test code = AEOS) 0.34 K/cumm 0.00-0.74 N Baso Abs (test code = ABASO) 0.1 K/cumm 0.00-0.21 N POC Glucose, [id number] 20:29:00 Test Item Value Reference Range Interpretation Comments POC Glucose (test 152 mg/dL 70-115 H If you con termite treater your code = POCGLUC) patient crit ically ill, the [place] Accu- Chek InformII meters hould not be used for Glu cose determinations. Draw a venous Glucose and send to the Main Lab for Analysis. Antibody Screen - [id number] 17:58:00 Test Item Value Reference Range Interpretation Comments Antibody Screen (test code = ABSCR) Negative Blood Type and [id number] 17:44:00 Test Item Value Reference Range Interpretation Comments ABO type (test code = ABO) A Rh Type (test code = RH) Positive POC Glucose, [id number] 16:09:00 Test Item Value Reference Range Interpretation Comments POC Glucose (test 192 mg/dL 70-115 H If you con termite treater your code = POCGLUC) patient crit ically ill, the [place] Accu- Chek InformII meters hould not be used for Glu cose determinations. Draw a venous Glucose and send to the Main Lab for Analysis. POC Glucose, [id number] 12:11:00 Test Item Value Reference Range Interpretation Comments POC Glucose (test 249 mg/dL 70-115 H If you con termite treater your code = POCGLUC) patient crit ically ill, the [place] Accu- Chek InformII meters hould not be used for Glu cose determinations. Draw a venous Glucose and send to the Main Lab for Analysis. MRI LWR EXTRM NON-JNT WO [id number] 09:25:10LOCATION: [id number]: MRI LWR EXTRM NON-JNT WO CONTRST-LEFTINDICATION: LEFT [...] concerning for injury.US DUPLX LWR EXT ART/BPG, [id number] 08:50:53US DUPLX LWR EXT ART/BPG, BILATCLINICAL HISTORY: non-healing woundsTechnique: Grayscale, color, and spectral sonography of the bilateral lower extremity arteries was performed.FINDINGS:Right leg (waveform / peak systolic velocity)APPLICATION DEVELOPMENT TEAM LEAD: Triphasic 95 cm/secProx SFA: Triphasic 92 cm/secMid SFA: Triphasic 81 cm/secDistal SFA: Triphasic 83 cm/secPopliteal: Triphasic 84 cm/secPTA: Monophasic 93 cm/secATA: Triphasic 32 cm/secDPA: Not imaged/bandaging Left leg (waveform / peak systolic velocity)APPLICATION DEVELOPMENT TEAM LEAD: Triphasic 88 cm/secProx SFA: Triphasic 93 cm/secMid SFA: Triphasic 82 cm/secDistal SFA: Triphasic 49 cm/secPopliteal: Triphasic 60 cm/secPTA: Triphasic 73 cm/secATA: Triphasic 93 cm/secDPA: Not imaged/bandaging IMPRESSION: 1. Limited exam. Thedorsalis pedis arteries are not imaged.2. Abnormal monophasic waveform in the right posterior tibial artery.3. Otherwise unremarkable exam.Location: R16 CBC with [id number] 08:22:00 Test Item Value Reference Range Interpretation [...] code = ALYMPH) 3.6 K/cumm 0.5-4.6 N [place] Abs (test code = AMONO) 0.6 K/cumm 0.0-1.2 N Eos Abs (test code = AEOS) 0.37 K/cumm 0.00-0.74 N Baso Abs (test code = ABASO) 0.1 K/cumm 0.00-0.21 N Basic Metabolic [id number] 08:03:00 Test Item Value Reference Range Interpretation [...] National Kidney Foundation,http ://nkd ep.nih.gov POC Glucose, [id number] 07:30:00 Test Item Value Reference Range Interpretation Comments POC Glucose (test 110 mg/dL 70-115 N If you con termite treater your code = POCGLUC) patient crit ically ill, the [place] Accu- Chek InformII meters hould not be used for Glu cose determinations. Draw a venous Glucose and send to the Main Lab for Analysis. POC Glucose, [id number] 19:57:00 Test Item Value Reference Range Interpretation Comments POC Glucose (test 124 mg/dL 70-115 H If you con termite treater your code = POCGLUC) patient crit ically ill, the [place] Accu- Chek InformII meters hould not be used for Glu cose determinations. Draw a venous Glucose and send to the Main Lab for Analysis. POC Glucose, [id number] 16:10:00 Test Item Value Reference Range Interpretation Comments POC Glucose (test 114 mg/dL 70-115 N Notify RN or MDIf you code = POCGLUC) consider you r patient critically ill, the [place] Accu-Chek InformII metershould not be used for Glucose determinations. Draw a venous Glucose and send to the Main Lab for Analysis. POC Glucose, [id number] 11:18:00 Test Item Value Reference Range Interpretation Comments POC Glucose (test 203 mg/dL 70-115 H Notify RN or MDIf you code = POCGLUC) consider you r patient critically ill, the [place] Accu-Chek InformII metershould not be used for Glucose determinations. Draw a venous Glucose and send to the Main Lab for Analysis. Culture, Wound [id number] 09:58:00Specimen: FootCollected: 07/03/2017 17:00 Status: Final Last [...] Streptococcus Beta Hemolytic Streptococcus Group GPOC Glucose, [id number] 07:23:00 Test Item Value Reference Range Interpretation Comments POC Glucose (test 197 mg/dL 70-115 H Notify RN or MDIf you code = POCGLUC) consider you r patient critically ill, the [place] Accu-Chek InformII metershould not be used for Glucose determinations. Draw a venous Glucose and send to the Main Lab for Analysis. POC Glucose, [id number] 16:09:00 Test Item Value Reference Range Interpretation Comments POC Glucose (test 194 mg/dL 70-115 H If you con termite treater your code = POCGLUC) patient crit ically ill, the [place] Accu- Chek InformII meters hould not be used for Glu cose determinations. Draw a venous Glucose and send to the Main Lab for Analysis. POC Glucose, [id number] 11:33:00 Test Item Value Reference Range Interpretation Comments POC Glucose (test 193 mg/dL 70-115 H If you con termite treater your code = POCGLUC) patient crit ically ill, the [place] Accu- Chek InformII meters hould not be used for Glu cose determinations. Draw a venous Glucose and send to the Main Lab for Analysis. MRI LWR EXTRM NON-JNT WO [id number] 08:18:56EXAM: MRI right foot without contrastLocation: [id number]: History of amputation, rule out osteomy elitisCOMPARISON: [...] 140 mg/dL 70-115 H If you con termite treater your code = POCGLUC) patient crit ically ill, the [place] Accu- Chek InformII meters hould not be used for Glu cose determinations. Draw a venous Glucose and send to the Main Lab for Analysis. Sed Rate ESR ([place])2017-07-05 06:40:00 Test Item Value Reference Range Interpretation Comments ESR (test code = HESR) 54 mm/Hr 0-9 H C-Reactive Protein, [id number] 05:41:00 Test Item Value Reference Range Interpretation Comments CRP (test code = CRP) 34.7 mg/L 0.0-5.0 H POC Glucose, [id number] 21:22:00 Test Item Value Reference Range Interpretation Comments POC Glucose (test 141 mg/dL 70-115 H If you con termite treater your code = POCGLUC) patient crit ically ill, the [place] Accu- Chek InformII meters hould not be used for Glu cose determinations. Draw a venous Glucose and send to the Main Lab for Analysis. POC Glucose, [id number] 16:09:00 Test Item Value Reference Range Interpretation Comments POC Glucose (test 156 mg/dL 70-115 H If you con termite treater your code = POCGLUC) patient crit ically ill, the [place] Accu- Chek InformII meters hould not be used for Glu cose determinations. Draw a venous Glucose and send to the Main Lab for Analysis. POC Glucose, [id number] 12:05:00 Test Item Value Reference Range Interpretation Comments POC Glucose (test 170 mg/dL 70-115 H If you con termite treater your code = POCGLUC) patient crit ically ill, the [place] Accu- Chek InformII meters hould not be used for Glu cose determinations. Draw a venous Glucose and send to the Main Lab for Analysis. XR FOOT [id number] 08:56:55XR FOOT 2V-LEFTLOCATION: [id number]:left foot ulcer COMPARISON: None.DISCUSSION:Frontal and lateral radiographs [...] stump.2. No definite acute osseous abnormalities.XR FOOT [id number] 08:53:30XR FOOT 2V-RIGHTLOCATION: [id number]:right foot stump ulcer COMPARISON: None.DISCUSSION:Frontal and lateral radiographs of the right foot were obtained. Amputation changes at the proximal metatarsals are noted.No definite suspicious focal osseous destruction or periosteal reactionis seen.Otherwise, no acute fracture or dislocation is seen.The joint spaces are grossly preserved.IMPRESSION:1. 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 No definite acute osseous abnormalities.POC Glucose, [id number] 07:50:00 Test Item Value Reference Range Interpretation Comments POC Glucose (test 139 mg/dL 70-115 H If you con termite treater your code = POCGLUC) patient crit ically ill, the [place] Accu- Chek InformII meters hould not be used for Glu cose determinations. Draw a venous Glucose and send to the Main Lab for Analysis. CBC with [id number] 06:19:00 Test Item Value Reference Range Interpretation [...] code = ALYMPH) 2.7 K/cumm 0.5-4.6 N [place] Abs (test code = AMONO) 0.6 K/cumm 0.0-1.2 N Eos Abs (test code = AEOS) 0.32 K/cumm 0.00-0.74 N Baso Abs (test code = ABASO) 0.1 K/cumm 0.00-0.21 N Lipid [id number] 06:15:00 Test Item Value Reference Range Interpretation Comments Cholesterol (test 133 mg/dL 0-200 N code = CHOL) Triglycerides (test 164 mg/dL 9-200 N code = TRIG) HDL (test code = 31 mg/dL 40-60 L HDL) Chol/HDL (test code 4.3 Ratio 0.0-5.0 N = CHOLPHDL) LDL, Calculated 69 0-130 N (NOTE)RISK O F HEART (test code = LDLC) DISEASEPu blished by [place] Heart AssociationAnal yte Optim al Boderline Increased RiskC HOL <200 200-239 >240TRI G <150 150-199 >200HDL Male: >60 <40HDL Female: >60 <50 LDL < 100 130-15 9 >160 LDL NEAR OPTIMAL IS 100- 129 VLDL (test code = 33 mg/dL 5-40 N VLDL) LDL/HDL (test code = 2 LDLPHDL) POC Glucose, [id number] 17:14:00 Test Item Value Reference Range Interpretation Comments POC Glucose (test 129 mg/dL 70-115 H If you con termite treater your code = POCGLUC) patient crit ically ill, the [place] Accu- Chek InformII meters hould not be used for Glu cose determinations. Draw a venous Glucose and send to the Main Lab for Analysis. RPR, [id number] 12:26:00 Test Item Value Reference Range Interpretation Comments RPR (test code = RPR) Non-Reactive Non-Reactive N POC Glucose, [id number] 12:05:00 Test Item Value Reference Range Interpretation Comments POC Glucose (test 173 mg/dL 70-115 H If you con termite treater your code = POCGLUC) patient crit ically ill, the [place] Accu- Chek InformII meters hould not be used for Glu cose determinations. Draw a venous Glucose and send to the Main Lab for Analysis. POC Glucose, [id number] 07:57:00 Test Item Value Reference Range Interpretation Comments POC Glucose (test 144 mg/dL 70-115 H If you con termite treater your code = POCGLUC) patient crit ically ill, the [place] Accu- Chek InformII meters hould not be used for Glu cose determinations. Draw a venous Glucose and send to the Main Lab for Analysis. POC Glucose, [id number] 06:19:00 Test Item Value Reference Range Interpretation [...] = TSH) 2.08 mIU/mL 0.270-4.200 N Lipid [id number] 23:52:00 Test Item Value Reference Range Interpretation Comments Cholesterol (test 171 mg/dL 0-200 N code = CHOL) Triglycerides (test 171 mg/dL 9-200 N code = TRIG) HDL (test code = 37 mg/dL 40-60 L HDL) Chol/HDL (test code 4.6 Ratio 0.0-5.0 N = CHOLPHDL) LDL, Calculated 100 0-130 N (NOTE)RISK O F HEART (test code = LDLC) DISEASEPu blished by [place] Heart AssociationAnal yte Optim al Boderline Increased RiskC HOL <200 200-239 >240TRI G <150 150-199 >200HDL Male: >60 <40HDL Female: >60 <50 LDL < 100 130-15 9 >160 LDL NEAR OPTIMAL IS 100- 129 VLDL (test code = 34 mg/dL 5-40 N VLDL) LDL/HDL (test code = 3 LDLPHDL) POC Glucose, [id number] 20:03:00 Test Item Value Reference Range Interpretation Comments POC Glucose (test 221 mg/dL 70-115 H If you con termite treater your code = POCGLUC) patient crit ically ill, the [place] Accu- Chek InformII meters hould not be used for Glu cose determinations. Draw a venous Glucose and send to the Main Lab for Analysis. POC Glucose, [id number] 16:47:00 Test Item Value Reference Range Interpretation Comments POC Glucose (test 304 mg/dL 70-115 H If you con termite treater your code = POCGLUC) patient crit ically ill, the [place] Accu- Chek InformII meters hould not be used for Glu cose determinations. Draw a venous Glucose and send to the Main Lab for Analysis. POC Glucose, [id number] 15:20:00 Test Item Value Reference Range Interpretation Comments POC Glucose (test 368 mg/dL 70-115 H If you con termite treater your code = POCGLUC) patient crit ically ill, the [place] Accu- Chek InformII meters hould not be used for Glu cose determinations. Draw a venous Glucose and send to the Main Lab for Analysis. [id number] 08:27:00 Test Item Value Reference Range Interpretation [...] g/dL 0.00-0.01 N code = ETOHU) Urinalysis [id number] 07:59:00 Test Item Value Reference Range Interpretation Comments Color (test code = COLOR) Yellow Yellow,Straw,Pl N yellow Clarity (test code = Clear Clear N CLAR) Specific [place] (test 1.026 1.001-1.035 N code = SPGR) [...] code = Few /HPF BACT) POC Glucose, [id number] 07:23:00 Test Item Value Reference Range Interpretation Comments POC Glucose (test 174 mg/dL 70-115 H If you con termite treater your code = POCGLUC) patient crit ically ill, the [place] Accu- Chek InformII meters hould not be used for Glu cose determinations. Draw a venous Glucose and send to the Main Lab for Analysis. [id number] 06:52:00 Test Item Value Reference Range Interpretation Comments Acetone [Serum] (test code = Negative Negative N ACETONE) Comprehensive Metabolic [id number] 06:19:00 Test Item Value Reference Range Interpretation [...] [employer],http :[email or web address] ep.nih.gov CBC with [id number] 06:00:00 Test Item Value Reference Range Interpretation [...] code = ALYMPH) 3.1 K/cumm 0.5-4.6 N [place] Abs (test code = AMONO) 0.9 K/cumm 0.0-1.2 N Eos Abs (test code = AEOS) 0.29 K/cumm 0.00-0.74 N Baso Abs (test code = ABASO) 0.1 K/cumm 0.00-0.21 N POC Glucose, [id number] 05:52:00 Test Item Value Reference Range Interpretation Comments POC Glucose (test 342 mg/dL 70-115 H If you con termite treater your code = POCGLUC) patient crit ically ill, the [place] Accu- Chek InformII meters hould not be used for Glu cose determinations. Draw a venous Glucose and send to the Main Lab for Analysis.
[2020-04-19 05:19] LABS: Absolute Lymphocytes (CBC) 2.9 K/uL (0.7-4.9); Basophils % 0.9 % (0-1.3); Hematocrit 38.6 % (39.6-49.0); Lymphocytes % 30.7 % (15.3-44.8); MPV 7.8 fL (7.6-11.3); RBC Red Blood Cell Count 5.13 M/uL (4.33-5.43)
[2020-04-19 05:23] LABS: Protime INR 0.99
[2020-04-19 05:46] LABS: ALT/SGPT 18 U/L (12-78); AST/SGOT 36 U/L (15-37); Albumin 2.8 g/dL (3.4-5.0); Alkaline Phosphatase 130 U/L (45-117); BUN Blood Urea Nitrogen 12 mg/dL (7-18); Bicarbonate 24 mmol/L (21-32); Bilirubin Direct < 0.1 mg/dL (0-0.2); Bilirubin Total 0.2 mg/dL (0.2-1.0); Glucose Level 265 mg/dL (74-106); Potassium 3.6 mmol/L (3.5-5.1); Protein, Total 7.7 g/dL (6.4-8.2); Sodium Level 136 mmol/L (136-145)
[2020-04-19 06:51] LABS: Barbiturates NEGATIVE (NEGATIVE); Benzodiazepines NEGATIVE (NEGATIVE); Cocaine POSITIVE (NEGATIVE); METHAMPHETAM NEGATIVE (NEGATIVE); Methadone NEGATIVE (NEGATIVE); Opiates NEGATIVE (NEGATIVE); Phencyclidine NEGATIVE (NEGATIVE); THC Cannibis POSITIVE (NEGATIVE)
[2020-04-19] MEDS ORDERED: LORAZEPAM 1 MG TABLET ONE (08:17)
[2020-04-19 08:24] LABS: Urine Blood TRACE (NEG); Urine Glucose 2+ (NEG); Urine Protein 2+ (NEG)
[2020-04-19] MEDS ORDERED: INSULIN 70/30 100 UNITS/ML SQ ONE (21:32)
[2020-04-20] MEDS ORDERED: LORAZEPAM 1 MG TABLET ONE (02:29)
[2020-04-20] MEDS ORDERED: TRAMADOL HCL 50 MG TAB ONE ×2 (08:03→13:19)
[2020-04-20] MEDS ORDERED: DIPHENOX/ATROP SULF 1 TAB PO ONE (10:46)
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
[2020-04-20 16:30] VITALS: BP 143/107; TEMP 97.8; O2SAT 99
== END 2020-04-20 16:09 ==
LOC: ER 04:43
DX: F43.21 Adjustment disorder with depressed mood (principal); F31.9 Bipolar disorder, unspecified; E11.65 Type 2 diabetes mellitus with hyperglycemia; F17.210 Nicotine dependence, cigarettes, uncomplicated; F20.9 Schizophrenia, unspecified; Z88.3 Allergy status to other anti-infective agents
CPT/HCPCS: 93005; 85025; 80048; 36415; 80320; 80329 ×2; 85610; 82947 ×6; 80076; 80307 ×8; 85730; 81003; 96372; 99285; U0002; J1815

== ENCOUNTER 2020-07-16 19:00 | Emergency (ER) | payer OTHER ==
--- OUTSIDE RECORDS SUMMARY | 2020-07-16 19:02 | XMS REPORT | Clinical Summary ---
:1985 Author Organization [facility] Address [address] [place] [id number] Care Team Providers Name Role Phone Asked, [...] Dates Next Due FLUCELVAX QUAD PF 11/13/2018 Surgical History Surgery Date Site/Laterality Comments BELOW KNEE LEG AMPUTATION 09/15/2015 - 09/14/2016 Right TOE AMPUTATION 09/15/2013 - 09/14/2014 Left Left littl e toe Medical History Medical History Date Comments Type 2 diabetes mellitus (HCC) Hypotension PTSD (post-traumatic stress disorder) Hx of BKA, right (HCC) Syncope and collapse 11/11/2018 Suicidal ideation Fall 11/11/2018 JOE (generalized anxiety disorder) Social History Tobacco Use Types Packs/Day Years [...] Assigned at Date Recorded Not on file Last Filed Vital Signs Not on file Plan of Treatment Health Maintenance Due Date Last Done Comments DIABETES: RETINAL EYE EXAM 1994 DIABETIC FOOT EXAM 1994 URINE MICROALBUMIN 1994 INFLUENZA VACCINE 04/15/2020 11/13/2018 Results Not on fileafter 07/16/2019 Additional Health Concerns Infection Onset Date Last Indicated Resolved Time C.Difficile (E) 11/16/2018 11/17/2018 Insurance Payer Benefit Plan / Subscriber ID Effective Dates Phone Addre ss Type Group MEDICARE MEDICARE PART A [id number] 2008-Present [employer] [place] Medicare AND B MEDICAID MEDICAID [id number] 2011-Present Med icaid [id number] Advance Directives For more information, please contact: [phone] Type Date 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
--- OUTSIDE RECORDS SUMMARY | 2020-07-16 19:06 | XMS REPORT | Continuity of Care Document ---
:1985 Author Organization [facility] t Address [address] [place] [address] Care Team Providers Name Role Phone UNKNOWN Primary Care Physician Unavailable Brad Attending Clinician Unavailable Brad Attending Clinician Unavailable DR SHERRY Attending Clinician Unavailable TIBURCIO PIERCE M.D. Attending Clinician Unavailable DANYELLE HAND M.D. Attending Clinician Unavailable KHAI GILLETTE M.D. Attending Clinician Unavailable Brad Admitting Clinician Unavailable DR SHERRY Admitting Clinician Unavailable TIUBRCIO PIERCE M.D., Celia Admitting Clinician Unavailable DANYELLE HAND M.D., K Admitting Clinician UnavailKHAI Williamson M.D., O Admitting Clinician Unavailable Problems Condition [...] s to drug Vancomyc Propensi Active GI 2019- Headache, Julio stomal in ty to Intolerance 11-12 Nausea/Vo Me thodi adverse 00:00: miting st reaction 00 s to drug Social History Social Habit Start Date Stop Date Quantity Comments Source History of Cigarette Smoker [facility] tobacco use History [facility] Meth odist Alcohol Std Drinks History [facility] od[facility] Alcohol Binge Sex Assigned At [facility] ethodist Tobacco use and 2018-11-12 2018-11-12 Never used [facility] ethodist exposure 00:00:00 00:00:00 Alcohol intake 2018-11-12 2018-11-12 Current [facility] thodist 00:00:00 00:00:00 non-drinker of alcohol (finding) History [facility] 2018-11-12 2018-11-12 1 [facility] Alcohol Frequency 00:00:00 00:00:00 Smoking Status Start Date Stop Date Source Current every day smoker 2018-11-12 00:00:00 [facility] Medications Ordered Filled Start Stop Current Ordering Indication Dosage Frequency Signature Comments Components Source Medication Medication Date Date Medication? Clinician (SIG) Name Name gabapentin Yes 800mg [id number] Take 800 [place] (NEURONTIN) 3-06 [id number] mg by Ania sánchezodi 800 mg 18:17: 3D mouth 3 st [...] Source Name Name FLUCELVAX QUAD PF 2018-11-13 Completed [facility] 00:[facility] Procedures This patient has no known procedures. Plan of Care Planned Activity Planned Date Details Comments Source Future Scheduled 2020-04-15 INFLUENZA VACCINE [place] [facility] 00:00:00 [code = INFLUENZA VACCINE] Future Scheduled 1994 DIABETES: RETINAL EYE [place] [facility] 00:00:00 EXAM [code = DIABETES: RETINAL EYE EXAM] Future Scheduled 1994 DIABETIC FOOT EXAM [place] [facility] 00:00:00 [code = DIABETIC FOOT EXAM] Future Scheduled 1994 URINE MICROALBUMIN [place] [facility] 00:00:00 [code = URINE MICROALBUMIN] Encounters Start End Encounter Admission Attending Care Care Encounter Source Date/Time Date/Time Type Type Clinicians Facility Department ID 2020-04-20 Inpatient Robson Salinas [facility] [id number] 17:51:00 Robson Salinas -[id number] [facility] 2017-12-16 Inpatient [facility] [id number] St[facility] 09:23:00 [facility] 2020-04-20 2020-04-24 Inpatient 3 Robson Salinas [facility] [id number] 17:51:00 16:30:00 Jose Roberto Salinaskeel [facility] 2019-08-12 2019-08-17 Inpatient E PRAKASH POWELL [facility] [id number] [place] 00:12:00 14:40:00 [facility] 2017-07-02 2017-07-07 [facility] [id number] [facility] 14:57:00 22:44:00 [facility] Results Test Description Test Time Test Comments Results Result Comments Source POC Glucose 2020-04-24 11:58:02 Test Item Value Reference Range Interpretation Comme nts Glucose POC (test code = 103 mg/dL 70-115 Not hazel RN or MDIf you consider your Glucose POC) patient critica lly ill, the Danial-Accu Chec k Infrom II meter should not be u sed for Glucose determination. Draw a venous Glucose and send to the main Lab for analysis. POC [id number] 08:19:34 Test Item Value Reference Range Interpretation Comments Glucose POC (test 153 mg/dL 70-115 H Notify RN or MDIf you code = Glucose POC) consider your patient critically ill, the Danial-Accu Chec k Infrom II meter should not be used for Glucos e determination. Draw a venous Glucose and send to the main Lab for analysis. POC [id number] 20:30:57 Test Item Value Reference Range Interpretation Comments Glucose POC (test 79 mg/dL 70-115 If you con ventilation equipment tender your code = Glucose POC) patient critically ill, the Danial-Accu Check Infrom II meter should not be used for Glucose determination. Draw a venous Glucose and send to the main Lab for analysis. POC [id number] 17:23:03 Test Item Value Reference Range Interpretation Comments Glucose POC (test 210 mg/dL 70-115 H If you con ventilation equipment tender your code = Glucose POC) patient critically ill, the Danial-Accu Check Infrom II meter should not be used for Glucose determination. Draw a venous Glucose and send to the main Lab for analysis. POC [id number] 12:00:58 Test Item Value Reference Range Interpretation Comments Glucose POC (test 117 mg/dL 70-115 H If you con ventilation equipment tender your code = Glucose POC) patient critically ill, the Danial-Accu Check Infrom II meter should not be used for Glucose determination. Draw a venous Glucose and send to the main Lab for analysis. POC [id number] 08:07:34 Test Item Value Reference Range Interpretation Comments Glucose POC (test 131 mg/dL 70-115 H If you con ventilation equipment tender your code = Glucose POC) patient critically ill, the Danial-Accu Check Infrom II meter should not be used for Glucose determination. Draw a venous Glucose and send to the main Lab for analysis. US Lower Ext Arterial Duplex [id number] 22:36:02Patient: RAYMUNDO LLANES Date/Time04/22/202019:13 CDTReason for ExamL LE pain, hx of DM and osteo;Diminished or Absent Pulse(s)ReportDICTATION LOCATION: [id number]: Male, 35 years of age with left leg pain and diminished pulses: History of DM and osteoEXAM: Left lower extremity arterial Doppler.COMPARISON: Previous bilateral lower extremity a rterial Doppler performed 07/06/2017TECHNIQUE: Real-time grayscale 2-D imaging, Doppler spectral analysis, and Doppler color flow imaging were performed of the left common femoral, superficial femoral,deep femoral, popliteal, anterior tibial, dorsalis pedis and posterior tibial arteries.FINDINGS: Normal triphasic waveforms with sufficient velocity seen throughout the left leg. No occlusions are seen.IMPRESSION: No significant arterial compromise in the left leg. Final Dictated by: Yumi Schaffer DT/TM: 04/22/2020 10:26 pmSigned by: Yumi Schaffer LSigned (Electronic Signature): 04/22/2020 10:36 pm XR Foot 2 Views [id number] 22:25:55Patient: RAYMUNDO LLANES Date/Time04/22/202019:00 CDTReason for ExamHeel painReportDICTATION LOCATION: [id number]: Male, 35 years of age with Heel painEXAM: LEFT FOOT, 2 VIEWSCOMPARISON: Previous left foot x-rays performed 07/04/2017FINDINGS: Calcaneus is unremarkable. 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 There appears to be a chronic nonhealed transverse fracture in the proximal diaphysis of 2nd metatarsal. There has been progression of chronic arthropathy in the intertarsal and tarsometatarsal joints since prior study, probably related to Charcot joint. No acute fracture, dislocation,periosteal reaction, osteolytic or osteoblastic lesion. Soft tissue swelling seen in the forefoot with suggestion of ulceration in the lateral forefoot in the region of 5th metatarsal amputation. No sig nificant subcutaneous emphysema.IMPRESSION:1. No evidence for acute osteomyelitis or acute fracture.2. Chronic nonhealed nondisplaced fracture proximal diaphysis of 2nd metatarsal, new since 2017.3. 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 Final Dictated by: Yumi Schaffer LDictated DT/TM: 04/22/2020 10:20 pmSigned by: Yumi Schaffer LSigned (Electronic Signature): 04/22/2020 10:25 pmPOC [id number] 20:23:56 Test Item Value Reference Range Interpretation Comments Glucose POC (test 324 mg/dL 70-115 H If you con ventilation equipment tender your code = Glucose POC) patient critically ill, the Danial-Accu Check Infrom II meter should not be used for Glucose determination. Draw a venous Glucose and send to the main Lab for analysis. POC [id number] 16:39:31 Test Item Value Reference Range Interpretation Comments Glucose POC (test 114 mg/dL 70-115 If you con ventilation equipment tender your code = Glucose POC) patient critically ill, the Danial-Accu Check Infrom II meter should not be used for Glucose determination. Draw a venous Glucose and send to the main Lab for analysis. POC [id number] 11:52:30 Test Item Value Reference Range Interpretation Comments Glucose POC (test 188 mg/dL 70-115 H If you con ventilation equipment tender your code = Glucose POC) patient critically ill, the Danial-Accu Check Infrom II meter should not be used for Glucose determination. Draw a venous Glucose and send to the main Lab for analysis. POC [id number] 07:55:26 Test Item Value Reference Range Interpretation Comments Glucose POC (test 232 mg/dL 70-115 H If you con ventilation equipment tender your code = Glucose POC) patient critically ill, the Danial-Accu Check Infrom II meter should not be used for Glucose determination. Draw a venous Glucose and send to the main Lab for analysis. POC [id number] 19:55:26 Test Item Value Reference Range Interpretation Comments Glucose POC (test 132 mg/dL 70-115 H If you con ventilation equipment tender your code = Glucose POC) patient critically ill, the Danial-Accu Check Infrom II meter should not be used for Glucose determination. Draw a venous Glucose and send to the main Lab for analysis. POC [id number] 16:18:23 Test Item Value Reference Range Interpretation Comments Glucose POC (test 168 mg/dL 70-115 H If you con ventilation equipment tender your code = Glucose POC) patient critically ill, the Danial-Accu Check Infrom II meter should not be used for Glucose determination. Draw a venous Glucose and send to the main Lab for analysis. Complete Blood Count with [id number] 12:01:18 Test Item Value Reference Range Interpretation Comments WBC (test code = WBC) 8.4 x10 4.4-10.5 RBC (test code = RBC) 4.79 x10 4.10-5.70 Hgb (test code = Hgb) 11.9 g/dL 13.4-17.4 L Hct (test code = Hct) 36.6 % 38.7-52.0 L MCV (test code = MCV) 76.40 fL 80.00-100.00 L MCHC (test code = 32.50 g/dL 32.00-37.50 MCHC) RDW CV (test code = 14.9 % 11.5-14.5 H RDW CV) MCH (test code = MCH) 24.8 pg 27.0-32.5 L Platelets (test code = 365.0 x10 140.0-440.0 Platelets) MPV (test code = MPV) 9.8 fL N Slide Review (test Auto Auto Result cr eated by code = Slide Review) GL_SJM_ SLIDE_REV_AUTO nRBC (test code = 0 N nRBC) NRBC Abs (test code = 0.00 x10 N NRBC Abs) Automated [id number] 12:01:18 Test Item Value Reference Range Interpretation Comments Neutro Auto (test code = Neutro 59.7 % 36.0-70.0 Auto) Lymph Auto (test code = Lymph Auto) 31.1 % 12.0-44.0 Upshur Auto (test code = Upshur Auto) 5.6 % 0.0-11.0 Eos, Auto (test code = Eos, Auto) 2.3 % 0.0-7.0 Basophil Auto (test code = Basophil 0.8 % 0.0-2.0 Auto) Neutro Absolute (test code = Neutro 5.0 x10 1.6-7.4 Absolute) Lymph Absolute (test code = Lymph 2.62 x10 .50-4.60 Absolute) Upshur Absolute (test code = Upshur .47 x10 .00-1.20 Absolute) Eos Absolute (test code = Eos 0.19 x10 0.00-0.74 Absolute) Baso Absolute (test code = Baso 0.07 x10 0.00-0.21 Absolute) IG [id number] 12:01:18 Test Item Value Reference Range Interpretation Comments IG (test code = IG) 0.5 % 0.0-5.0 IG Abs (test code = IG Abs) 0 x10 N Comprehensive Metabolic [id number] 12:00:10 Test Item Value Reference Range Interpretation Comments Sodium Level (test code = Sodium 139.0 mmol/L 136.0-145.0 Level) Potassium Level (test code = 4.00 mmol/L 3.50-5.10 Potassium Level) Chloride Level (test code = 107.0 mmol/L 98.0-107.0 Chloride Level) CO2 (test code = CO2) 26 mmol/L 20-31 Anion Gap (test code = Anion 5.8 mmol/L 5.0-15.0 Gap) BUN (test code = BUN) 14 mg/dL 9-23 Creatinine Level (test code = 1.00 mg/dL 0.70-1.30 Creatinine Level) BUN/Creat Ratio (test code = 14.0 ratio 10.0-20.0 BUN/Creat Ratio) Glucose Level (test code = 250 mg/dL 74-106 H Glucose Level) Calcium Level (test code = 8.6 mg/dL 8.3-10.6 Calcium Level) Alk Phos (test code = Alk Phos) 118 U/L 46-116 H Bilirubin Total (test code = <0.2 mg/dL 0.2-1.1 Bilirubin Total) Albumin Level (test code = 3.5 g/dL 3.2-4.8 Albumin Level) Protein Total (test code = 6.0 g/dL 5.7-8.2 Protein Total) ALT (test code = ALT) 15 U/L 10-49 AST (test code = AST) 15 U/L <=34 Globulin (test code = Globulin) 2.5 g/dL 2.3-3.5 A/G Ratio (test code = A/G 1.4 g/dL 0.8-2.0 Ratio) Hemolysis (test code = 0 g/dL 1-2 Hemolysis) Icterus (test code = Icterus) 0 g/dL 1-2 Lipemia (test code = Lipemia) 0 g/dL 1-2 Comprehensive Metabolic [id number] 12:00:10 Test Item Value Reference Range Interpretation Comments Sodium Level (test 139.0 mmol/L 136.0-145.0 code = Sodium Level) Potassium Level 4.00 mmol/L 3.50-5.10 (test code = Potassium Level) Chloride Level (test 107.0 mmol/L 98.0-107.0 code = Chloride Level) CO2 (test code = 26 mmol/L 20-31 CO2) Anion Gap (test code 5.8 mmol/L 5.0-15.0 = Anion Gap) BUN (test code = 14 mg/dL 9-23 BUN) Creatinine Level 1.00 mg/dL 0.70-1.30 (test code = Creatinine Level) BUN/Creat Ratio 14.0 ratio 10.0-20.0 (test code = BUN/Creat Ratio) Glucose Level (test 250 mg/dL 74-106 H code = Glucose Level) Calcium Level (test 8.6 mg/dL 8.3-10.6 code = Calcium Level) Alk Phos (test code 118 U/L 46-116 H = Alk Phos) Bilirubin Total <0.2 mg/dL 0.2-1.1 (test code = Bilirubin Total) Albumin Level (test 3.5 g/dL 3.2-4.8 code = Albumin Level) Protein Total (test 6.0 g/dL 5.7-8.2 code = Protein Total) ALT (test code = 15 U/L 10-49 ALT) AST (test code = 15 U/L <=34 AST) Globulin (test code 2.5 g/dL 2.3-3.5 = Globulin) A/G Ratio (test code 1.4 g/dL 0.8-2.0 = A/G Ratio) eGFR AA (test code = >60 >=60 eGFR (e stimated eGFR AA) mL/min/1.73 m2 Glomerular Filtration Rate ) is an estimated va lue, calculated from the patient's serum creatinine usin g the MDRD equation. It is NOT the patient 's actual GFR. The eGFR provides a more clinically usef ul measure of kidn ey disease than se rum creatinine alone.This calculation adrien es sex and race in to account, if the information is provided. If th e race is not provided, and t he patient is -Karen n, multiply by 1.2 12. If sex is not provided, and t he patient is fema le, multiply by 0.7 42. Results for pat ients <18 years of ag e have not been validated by th e MDRD study and should be interpreted wit h caution. eGFR R esult Interpretation: eGFR > or = 60 is in the Normal RangeeGF R < 60 may mean kid constantino diseaseeGFR < 1 5 may mean kidney failure Rang es recommended by the National Kidney Foundation, http://nkdep.ni h.gov Hemolysis (test code 0 g/dL 1-2 = Hemolysis) Icterus (test code = 0 g/dL 1-2 Icterus) Lipemia (test code = 0 g/dL 1-2 Lipemia) Comprehensive Metabolic [id number] 12:00:10 Test Item Value Reference Range Interpretation Comments Sodium Level (test 139.0 mmol/L 136.0-145.0 code = Sodium Level) Potassium Level 4.00 mmol/L 3.50-5.10 (test code = Potassium Level) Chloride Level (test 107.0 mmol/L 98.0-107.0 code = Chloride Level) CO2 (test code = 26 mmol/L 20-31 CO2) Anion Gap (test code 5.8 mmol/L 5.0-15.0 = Anion Gap) BUN (test code = 14 mg/dL 9-23 BUN) Creatinine Level 1.00 mg/dL 0.70-1.30 (test code = Creatinine Level) BUN/Creat Ratio 14.0 ratio 10.0-20.0 (test code = BUN/Creat Ratio) Glucose Level (test 250 mg/dL 74-106 H code = Glucose Level) Calcium Level (test 8.6 mg/dL 8.3-10.6 code = Calcium Level) Alk Phos (test code 118 U/L 46-116 H = Alk Phos) Bilirubin Total <0.2 mg/dL 0.2-1.1 (test code = Bilirubin Total) Albumin Level (test 3.5 g/dL 3.2-4.8 code = Albumin Level) Protein Total (test 6.0 g/dL 5.7-8.2 code = Protein Total) ALT (test code = 15 U/L 10-49 ALT) AST (test code = 15 U/L <=34 AST) Globulin (test code 2.5 g/dL 2.3-3.5 = Globulin) A/G Ratio (test code 1.4 g/dL 0.8-2.0 = A/G Ratio) eGFR AA (test code = >60 >=60 eGFR (e stimated eGFR AA) mL/min/1.73 m2 Glomerular Filtration Rate ) is an estimated va lue, calculated from the patient's serum creatinine usin g the MDRD equation. It is NOT the patient 's actual GFR. The eGFR provides a more clinically usef ul measure of kidn ey disease than se rum creatinine alone.This calculation adrien es sex and race in to account, if the information is provided. If th e race is not provided, and t he patient is -Karen n, multiply by 1.2 12. If sex is not provided, and t he patient is fema le, multiply by 0.7 42. Results for pat ients <18 years of ag e have not been validated by [facility] MDRD study and should be interpreted wit h caution. eGFR R esult Interpretation: eGFR > or = 60 is in the Normal RangeeGF R < 60 may mean kid constantino diseaseeGFR < 1 5 may mean kidney failure Rang es recommended by the National Kidney Foundation, http://nkdep.ni h.gov eGFR Non-AA (test >60.00 >=60.00 eGFR (suzan mated code = eGFR Non-AA) mL/min/1.73 m2 Glomer ular Filtration Rate ) is an estimated va lue, calculated from the patient's serum creatinine usin g the MDRD equation. It is NOT the patient 's actual GFR. The eGFR provides a more clinically usef ul measure of kidn ey disease than se rum creatinine alone.This calculation adrien es sex and race in to account, if the information is provided. If th e race is not provided, and t he patient is -Karen n, multiply by 1.2 12. If sex is not provided, and t he patient is fema le, multiply by 0.7 42. Results for pat ients <18 years of ag e have not been validated by [facility] MDRD study and should be interpreted wit h caution. eGFR R esult Interpretation: eGFR > or = 60 is in the Normal RangeeGF R < 60 may mean kid constantino diseaseeGFR < 1 5 may mean kidney failure Rang es recommended by the National Kidney Foundation, http://nkdep.ni h.gov Hemolysis (test code 0 g/dL 1-2 = Hemolysis) Icterus (test code = 0 g/dL 1-2 Icterus) Lipemia (test code = 0 g/dL 1-2 Lipemia) POC [id number] 11:43:29 Test Item Value Reference Range Interpretation Comments Glucose POC (test 238 mg/dL 70-115 H If you con ventilation equipment tender your code = Glucose POC) patient critically ill, the Danial-Accu Check Infrom II meter should not be used for Glucose determination. Draw a venous Glucose and send to the main Lab for analysis. POC [id number] 08:10:58 Test Item Value Reference Range Interpretation Comments Glucose POC (test 206 mg/dL 70-115 H If you con ventilation equipment tender your code = Glucose POC) patient critically ill, the Danial-Accu Check Infrom II meter should not be used for Glucose determination. Draw a venous Glucose and send to the main Lab for analysis. Hemoglobin [id number] 07:40:45 Test Item Value Reference Range Interpretation Comments Hemoglobin A1c (test code 13.1 % 4.0-5.8 H Di abetic >=6.5 = Hemoglobin A1c) %Prediabet es 5.7-6.4 %Normal <5.7 % RPR [id number] 07:09:26 Test Item Value Reference Range Interpretation Comments RPR Qual (test code = RPR Qual) Non-Reactive Non-Reactive Reactive Control (test code = Reactive Reactive Control) Weak Reactive Control (test Weak Reactive code = Weak Reactive Control) Non-Reactive Control (test code Non-Reactive = Non-Reactive Control) Lot # (test code = Lot #) [id number] Expiration Dt (test code = 06-14-2021 N Expiration Dt) Lipid [id number] 06:56:22 Test Item Value Reference Range Interpretation Comments Cholesterol Total 181 mg/dL N Low-risk l evel (test code = (desirable) - < 200 Cholesterol Total) mg/dlMode rate-risk level (borderli ne) - 200-239 mg/dlHigh-risk level - ?240 mg/dl Triglycerides (test 244 mg/dL N Normal - <150 code = Triglycerides) mg/dlB orderline high - 150-199 mg/dl High - 200-499 mg/dl Very high - ?500 mg/ dl HDL (test code = HDL) 35.80 mg/dL N Low-ri sk level (desirable) - ? 60 mg/dlHigh-risk level (undesirable) - <40 mg/dl LDL (test code = LDL) 96 mg/dL N The eq uation being used in this calculation is LDL = (Chol - HDL) - (Trig / 5) VLDL (test code = 49 mg/dL 5-40 H The equati on being VLDL) used in this calculation is VLDL = Trig / 5 Chol/HDL (test code = 5.1 ratio <=5.0 H Chol/HDL) LDL/HDL Ratio (test 3 N The equa tion being code = LDL/HDL Ratio) used i n this calculation is LDL/HDL Ratio=L DL Calc/HDL Chol Thyroid Stimulating [id number] 06:56:22 Test Item Value Reference Range Interpretation Comments TSH (test code = TSH) 1.678 mcIU/mL 0.550-4.780 POC [id number] 05:07:02 Test Item Value Reference Range Interpretation Comments Glucose POC (test 241 mg/dL 70-115 H If you con ventilation equipment tender your code = Glucose POC) patient critically ill, the Danial-Accu Check Infrom II meter should not be used for Glucose determination. Draw a venous Glucose and send to the main Lab for analysis. POC [id number] 20:27:59 Test Item Value Reference Range Interpretation Comments Glucose POC (test 420 mg/dL 70-115 If you con ventilation equipment tender your code = Glucose POC) patient critically ill, the Danial-Accu Check Infrom II meter should not be used for Glucose determination. Draw a venous Glucose and send to the main Lab for analysis. POC [id number] 17:53:32 Test Item Value Reference Range Interpretation Comments Glucose POC (test 285 mg/dL 70-115 H If you con ventilation equipment tender your code = Glucose POC) patient critically ill, the Danial-Accu Check Infrom II meter should not be used for Glucose determination. Draw a venous Glucose and send to the main Lab for analysis. ANAEROBIC [id number] 14:27:00 Test Item Value Reference Range Interpretation Comments Culture Observations NO ANAEROBES ISOLATED (test code = COB1) AT 5 DAYS. CULTURE HELD FOR 5 DAYS ANAEROBIC [id number] 14:27:00 Test Item Value Reference Range Interpretation Comments Culture Observations NO ANAEROBES ISOLATED (test code = COB1) AT 5 DAYS. CULTURE HELD FOR 5 DAYS WOUND/SKIN/ABS.&GRAMSTAIN [id number] 10:33:00 Test Item Value Reference Range Interpretation Comments Direct Exam FEW WHITE BLOOD CELLS (test code = SEEN DE1) Direct Exam NO ORGANISMS SEEN (test code = DE2) Isolate 1 Coagulase negative REFER TO #[id number] (test code = staphylococcus FOR IDENTIFIC ATION ISO1) AND SUSCEPTIBIL ITY WOUND/SKIN/ABS.&GRAMSTAIN [id number] 10:32:00 Test Item Value Reference Range Interpretation Comments Direct Exam (test code NO WHITE BLOOD CELLS = DE1) SEEN Direct Exam (test code NO ORGANISMS SEEN = DE2) Isolate 1 (test code = Alvaro prajapati ISO1) GLUCOMETER GLUCOSE- LAB USE [id number] 11:30:00 Test Item Value Reference Range Interpretation Comments GLUCOMETER (test code 275 mg/dL 70-100 H CLEANE D METERMeter ID: = GMG) [id number] tor: [id number] TTSUSAN BLOOD [id number] 07:35:00 Test Item Value Reference Range Interpretation Comments Culture Observations (test NO GROWTH AFTER 5 code = COB1) DAYS BASIC METABOLIC PANEL 2019-08-17 06:22:00 Test Item Value Reference Range Interpretation [...] 8.3 mg/dL 8.3-9.5 GLUCOMETER GLUCOSE- LAB USE [id number] 06:05:00 Test Item Value Reference Range Interpretation Comments GLUCOMETER (test code 173 mg/dL 70-100 H CLEANE D METERMeter ID: = GMG) [id number] tor: [id number] CBC (INCLUDES AUTOMATED DIFFERENTIAL)*[id number] 05:47:00 Test Item Value Reference Range Interpretation [...] H CLEANE D METERMeter ID: = GMG) [id number] tor: [address]ASU[address]AI GLUCOMETER GLUCOSE- LAB USE [id number] 16:17:00 Test Item Value Reference Range Interpretation Comments GLUCOMETER (test 306 mg/dL 70-100 H DAILY MAINT ENANCEMeter code = GMG) ID: [id number] perator: [id number]AY[address] V ASUPILLAI GLUCOMETER GLUCOSE- LAB USE [id number] 12:08:00 Test Item Value Reference Range Interpretation Comments GLUCOMETER (test code = 241 mg/dL 70-100 H Mete r ID: GMG) [id number] tor: 9830 OZZIE TAA GLUCOMETER GLUCOSE- LAB USE [id number] 09:52:00 Test Item Value Reference Range Interpretation Comments GLUCOMETER (test 239 mg/dL 70-100 H DAILY MAINT ENANCEMeter code = GMG) ID: [id number] perator: [id number] JAYASREE V ASUPILLAI COMPREHENSIVE METABOLIC [...] 31 IU/L <=78 GLUCOMETER GLUCOSE- LAB USE [id number] 05:14:00 Test Item Value Reference Range Interpretation Comments GLUCOMETER (test code 194 mg/dL 70-100 H CLEANE D METERMeter ID: = GMG) [id number] tor: 9581 LEANNE JENSEN NSON PRO TIME AND PTT 2019-08-16 02:47:00 Test Item Value Reference Range Interpretation [...] Order Code is ANTI-XA CBC (INCLUDES AUTOMATED DIFFERENTIAL)*[id number] 02:26:00 Test Item Value Reference Range Interpretation [...] = NORMAL WRBCMOR) GLUCOMETER GLUCOSE- LAB USE [id number] 20:26:00 Test Item Value Reference Range Interpretation Comments GLUCOMETER (test code 360 mg/dL 70-100 H CLEANE D METERMeter ID: = GMG) [id number] tor: 9588 DOC SHARIF GLUCOMETER GLUCOSE- LAB USE [id number] 16:22:00 Test Item Value Reference Range Interpretation Comments GLUCOMETER (test code = 246 mg/dL 70-100 H Mete r ID: GMG) [id number] tor: 9905 RICHARD COOK MACHO GLUCOMETER GLUCOSE- LAB USE [id number] 11:54:00 Test Item Value Reference Range Interpretation Comments GLUCOMETER (test code = 241 mg/dL 70-100 H Mete r ID: GMG) [id number] tor: 9924 OFELIA QUINTANA GLUCOMETER GLUCOSE- LAB USE [id number] 05:11:00 Test Item Value Reference Range Interpretation Comments GLUCOMETER (test 314 mg/dL 70-100 H DAILY MAINT ENANCEMeter code = GMG) ID: [id number] perator: [id number] JAYASREE V ASUPILLAI GLUCOMETER GLUCOSE- LAB USE [id number] 19:43:00 Test Item Value Reference Range Interpretation Comments GLUCOMETER (test 288 mg/dL 70-100 H DAILY MAINT ENANCEMeter code = GMG) ID: [id number] perator: [id number] JAYASREE V ASUPILLAI GLUCOMETER GLUCOSE- LAB USE [id number] 16:50:00 Test Item Value Reference Range Interpretation Comments GLUCOMETER (test 186 mg/dL 70-100 H DAILY MAINT ENANCEMeter code = GMG) ID: [id number] perator: [id number] OFELIA Stephens ICKERSON WOUND/SKIN/ABS.&GRAMSTAIN [id number] 11:53:00 Test Item Value Reference Interpretation Comments [...] ARE EXTREMELY RARE. GLUCOMETER GLUCOSE- LAB USE [id number] 11:51:00 Test Item Value Reference Range Interpretation Comments GLUCOMETER (test code = 181 mg/dL 70-100 H Mete r ID: GMG) [id number] tor: 9905 RICHARD KONG GLUCOMETER GLUCOSE- LAB USE [id number] 06:08:00 Test Item Value Reference Range Interpretation Comments GLUCOMETER (test code = 264 mg/dL 70-100 H Mete r ID: GMG) [id number] tor: 2013 EVELIN MENDOZAO GLUCOMETER GLUCOSE- LAB USE [id number] 19:56:00 Test Item Value Reference Range Interpretation Comments GLUCOMETER (test code 278 mg/dL 70-100 H CLEANE D METERMeter ID: = GMG) [id number] tor: 9588 DOC SHARIF GLUCOMETER GLUCOSE- LAB USE [id number] 16:30:00 Test Item Value Reference Range Interpretation Comments GLUCOMETER (test code = 456 mg/dL 70-100 HH Mete r ID: GMG) [id number] tor: 9169 BRI MIRT O GLUCOMETER GLUCOSE- LAB USE [id number] 12:08:00 Test Item Value Reference Range Interpretation Comments GLUCOMETER (test code = 302 mg/dL 70-100 H Mete r ID: GMG) [id number] tor: 9924 OFELIA QUINTANA MRI LOW EXT NON JOINT W/WO CON*WW*2019-08-13 [...] with nonunion atthe second metatarsal fracture. BLOOD [id number] 07:42:00 Test Item Value Reference Interpretation Comments [...] 31A) 18 IU/L <=78 CBC (INCLUDES AUTOMATED DIFFERENTIAL)*[id number] 05:59:00 Test Item Value Reference Range Interpretation [...] = NORMAL WRBCMOR) GLUCOMETER GLUCOSE- LAB USE [id number] 04:53:00 Test Item Value Reference Range Interpretation Comments GLUCOMETER (test code = 374 mg/dL 70-100 H Mete r ID: GMG) [id number] tor: 9908 INO HERMANA GLUCOMETER GLUCOSE- LAB USE [id number] 23:49:00 Test Item Value Reference Range Interpretation Comments GLUCOMETER (test code = 192 mg/dL 70-100 H Mete r ID: GMG) [id number] tor: 4845 CHRISTINA ANG N GLUCOMETER GLUCOSE- LAB USE [id number] 19:32:00 Test Item Value Reference Range Interpretation Comments GLUCOMETER (test code = 183 mg/dL 70-100 H Mete r ID: GMG) [id number] tor: 9908 INO HUERTA GLUCOMETER GLUCOSE- LAB USE [id number] 16:43:00 Test Item Value Reference Range Interpretation Comments GLUCOMETER (test code = 244 mg/dL 70-100 H Mete r ID: GMG) [id number] tor: 9924 OFELIA QUINTANA GLUCOMETER GLUCOSE- LAB USE [id number] 12:15:00 Test Item Value Reference Range Interpretation Comments GLUCOMETER (test 331 mg/dL 70-100 H DAILY MAINT ENANCEMeter code = GMG) ID: [id number] perator: [id number] OFELIA Mal ICKERSON GLUCOMETER GLUCOSE- LAB USE [id number] 08:40:00 Test Item Value Reference Range Interpretation Comments GLUCOMETER (test code 350 mg/dL 70-100 H Meter ID: = GMG) [id number] tor: 3103 MAYRA MOYA COMPREHENSIVE METABOLIC LARA *WW*2019-08-12 06:38:00 Test Item [...] 31A) 18 IU/L <=78 CBC (INCLUDES AUTOMATED DIFFERENTIAL)*[id number] 05:50:00 Test Item Value Reference Range Interpretation [...] = NORMAL WRBCMOR) GLUCOMETER GLUCOSE- LAB USE [id number] 03:06:00 Test Item Value Reference Range Interpretation Comments GLUCOMETER (test code 497 mg/dL 70-100 HH Meter ID: = GMG) [id number] tor: 3103 MAYRA MOYA GLUCOMETER GLUCOSE- LAB USE [id number] 00:19:00 Test Item Value Reference Range Interpretation Comments GLUCOMETER (test code 515 mg/dL 70-100 HH Meter ID: = GMG) [id number] tor: 3103 MAYRA MOYA GLUCOMETER GLUCOSE- LAB USE [id number] 22:09:00 Test Item Value Reference Range Interpretation Comments GLUCOMETER (test code = 591 mg/dL 70-100 HH Mete r ID: GMG) [id number] tor: 9550 MARVIN DAVIES URINALYSIS WITH MICRO [...] = USPERM) /HPF NONE COMPREHENSIVE METABOLIC LARA *WW*2019-08-11 20:10:00 Test Item Value Reference Range Interpretation [...] 31A) 17 IU/L <=78 CBC (INCLUDES AUTOMATED DIFFERENTIAL)*[id number] 19:52:00 Test Item Value Reference Range Interpretation [...] XR FOOT LEFT COMPLETE 3 VIEWS*WW*2019-08-11 19:20:34LOCATION: [id number]: 34-year-old male who presents with a nonhealing [...] see above comments for more details.POC Glucose, [id number] 07:22:00 Test Item Value Reference Range Interpretation Comments POC Glucose (test 161 mg/dL 70-115 H Notify RN or MDIf you code = POCGLUC) consider you r patient critically ill, the [place] Accu-Chek InformII metershould not be used for Glucose determinations. Draw a venous Glucose and send to the Main Lab for Analysis. Comprehensive Metabolic [id number] 07:08:00 Test Item Value Reference Range Interpretation [...] National Kidney Foundation,http ://nkd ep.nih.gov CBC with [id number] 06:48:00 Test Item Value Reference Range Interpretation [...] code = ALYMPH) 4.5 K/cumm 0.5-4.6 N [place] Abs (test code = AMONO) 0.6 K/cumm 0.0-1.2 N Eos Abs (test code = AEOS) 0.18 K/cumm 0.00-0.74 N Baso Abs (test code = ABASO) 0.1 K/cumm 0.00-0.21 N Microcytosis (test code = MICRO) Slight Hypochromic (test code = HYPO) Slight POC Glucose, [id number] 19:07:00 Test Item Value Reference Range Interpretation Comments POC Glucose (test 227 mg/dL 70-115 H If you con ventilation equipment tender your code = POCGLUC) patient crit ically ill, the [place] Accu- Chek InformII meters hould not be used for Glu cose determinations. Draw a venous Glucose and send to the Main Lab for Analysis. POC Glucose, [id number] 16:11:00 Test Item Value Reference Range Interpretation Comments POC Glucose (test 266 mg/dL 70-115 H If you con ventilation equipment tender your code = POCGLUC) patient crit ically ill, the [place] Accu- Chek InformII meters hould not be used for Glu cose determinations. Draw a venous Glucose and send to the Main Lab for Analysis. POC Glucose, [id number] 11:36:00 Test Item Value Reference Range Interpretation Comments POC Glucose (test 69 mg/dL 70-115 L If you con ventilation equipment tender your code = POCGLUC) patient crit ically ill, the [place] Accu- Chek InformII meters hould not be used for Glu cose determinations. Draw a venous Glucose and send to the Main Lab for Analysis. POC Glucose, [id number] 07:45:00 Test Item Value Reference Range Interpretation Comments POC Glucose (test 234 mg/dL 70-115 H If you con ventilation equipment tender your code = POCGLUC) patient crit ically ill, the [place] Accu- Chek InformII meters hould not be used for Glu cose determinations. Draw a venous Glucose and send to the Main Lab for Analysis. POC Glucose, [id number] 19:15:00 Test Item Value Reference Range Interpretation Comments POC Glucose (test 148 mg/dL 70-115 H If you con ventilation equipment tender your code = POCGLUC) patient crit ically ill, the [place] Accu- Chek InformII meters hould not be used for Glu cose determinations. Draw a venous Glucose and send to the Main Lab for Analysis. POC Glucose, [id number] 15:37:00 Test Item Value Reference Range Interpretation Comments POC Glucose (test 133 mg/dL 70-115 H If you con ventilation equipment tender your code = POCGLUC) patient crit ically ill, the [place] Accu- Chek InformII meters hould not be used for Glu cose determinations. Draw a venous Glucose and send to the Main Lab for Analysis. POC Glucose, [id number] 11:10:00 Test Item Value Reference Range Interpretation Comments POC Glucose (test 203 mg/dL 70-115 H Notify RN or MDIf you code = POCGLUC) consider you r patient critically ill, the [place] Accu-Chek InformII metershould not be used for Glucose determinations. Draw a venous Glucose and send to the Main Lab for Analysis. POC Glucose, [id number] 07:29:00 Test Item Value Reference Range Interpretation Comments POC Glucose (test 261 mg/dL 70-115 H Notify RN or MDIf you code = POCGLUC) consider you r patient critically ill, the [place] Accu-Chek InformII metershould not be used for Glucose determinations. Draw a venous Glucose and send to the Main Lab for Analysis. POC Glucose, [id number] 19:32:00 Test Item Value Reference Range Interpretation Comments POC Glucose (test 226 mg/dL 70-115 H If you con ventilation equipment tender your code = POCGLUC) patient crit ically ill, the [place] Accu- Chek InformII meters hould not be used for Glu cose determinations. Draw a venous Glucose and send to the Main Lab for Analysis. POC Glucose, [id number] 15:58:00 Test Item Value Reference Range Interpretation Comments POC Glucose (test 138 mg/dL 70-115 H Notify RN or MDIf you code = POCGLUC) consider you r patient critically ill, the [place] Accu-Chek InformII metershould not be used for Glucose determinations. Draw a venous Glucose and send to the Main Lab for Analysis. POC Glucose, [id number] 11:48:00 Test Item Value Reference Range Interpretation Comments POC Glucose (test 154 mg/dL 70-115 H Notify RN or MDIf you code = POCGLUC) consider you r patient critically ill, the [place] Accu-Chek InformII metershould not be used for Glucose determinations. Draw a venous Glucose and send to the Main Lab for Analysis. POC Glucose, [id number] 07:23:00 Test Item Value Reference Range Interpretation Comments POC Glucose (test 131 mg/dL 70-115 H Notify RN or MDIf you code = POCGLUC) consider you r patient critically ill, the [place] Accu-Chek InformII metershould not be used for Glucose determinations. Draw a venous Glucose and send to the Main Lab for Analysis. POC Glucose, [id number] 19:38:00 Test Item Value Reference Range Interpretation Comments POC Glucose (test 160 mg/dL 70-115 H If you con ventilation equipment tender your code = POCGLUC) patient crit ically ill, the [place] Accu- Chek InformII meters hould not be used for Glu cose determinations. Draw a venous Glucose and send to the Main Lab for Analysis. POC Glucose, [id number] 17:27:00 Test Item Value Reference Range Interpretation Comments POC Glucose (test 191 mg/dL 70-115 H If you con ventilation equipment tender your code = POCGLUC) patient crit ically ill, the [place] Accu- Chek InformII meters hould not be used for Glu cose determinations. Draw a venous Glucose and send to the Main Lab for Analysis. POC Glucose, [id number] 14:19:00 Test Item Value Reference Range Interpretation Comments POC Glucose (test 252 mg/dL 70-115 H If you con ventilation equipment tender your code = POCGLUC) patient crit ically ill, the [place] Accu- Chek InformII meters hould not be used for Glu cose determinations. Draw a venous Glucose and send to the Main Lab for Analysis. POC Glucose, [id number] 11:41:00 Test Item Value Reference Range Interpretation Comments POC Glucose (test 114 mg/dL 70-115 N If you con ventilation equipment tender your code = POCGLUC) patient crit ically ill, the [place] Accu- Chek InformII meters hould not be used for Glu cose determinations. Draw a venous Glucose and send to the Main Lab for Analysis. POC Glucose, [id number] 05:58:00 Test Item Value Reference Range Interpretation Comments POC Glucose (test 347 mg/dL 70-115 H If you con ventilation equipment tender your code = POCGLUC) patient crit ically ill, the [place] Accu- Chek InformII meters hould not be used for Glu cose determinations. Draw a venous Glucose and send to the Main Lab for Analysis. POC Glucose, [id number] 19:27:00 Test Item Value Reference Range Interpretation Comments POC Glucose (test 334 mg/dL 70-115 H Notify RN or MDIf you code = POCGLUC) consider you r patient critically ill, the [place] Accu-Chek InformII metershould not be used for Glucose determinations. Draw a venous Glucose and send to the Main Lab for Analysis. POC Glucose, [id number] 15:02:00 Test Item Value Reference Range Interpretation Comments POC Glucose (test 72 mg/dL 70-115 N If you con ventilation equipment tender your code = POCGLUC) patient crit ically ill, the [place] Accu- Chek InformII meters hould not be used for Glu cose determinations. Draw a venous Glucose and send to the Main Lab for Analysis. POC Glucose, [id number] 12:14:00 Test Item Value Reference Range Interpretation Comments POC Glucose (test 110 mg/dL 70-115 N If you con ventilation equipment tender your code = POCGLUC) patient crit ically ill, the [place] Accu- Chek InformII meters hould not be used for Glu cose determinations. Draw a venous Glucose and send to the Main Lab for Analysis. POC Glucose, [id number] 06:03:00 Test Item Value Reference Range Interpretation Comments POC Glucose (test 224 mg/dL 70-115 H If you con ventilation equipment tender your code = POCGLUC) patient crit ically ill, the [place] Accu- Chek InformII meters hould not be used for Glu cose determinations. Draw a venous Glucose and send to the Main Lab for Analysis. POC Glucose, [id number] 19:29:00 Test Item Value Reference Range Interpretation Comments POC Glucose (test 300 mg/dL 70-115 H Notify RN or MDIf you code = POCGLUC) consider you r patient critically ill, the [place] Accu-Chek InformII metershould not be used for Glucose determinations. Draw a venous Glucose and send to the Main Lab for Analysis. POC Glucose, [id number] 16:00:00 Test Item Value Reference Range Interpretation Comments POC Glucose (test 283 mg/dL 70-115 H Notify RN or MDIf you code = POCGLUC) consider you r patient critically ill, the [place] Accu-Chek InformII metershould not be used for Glucose determinations. Draw a venous Glucose and send to the Main Lab for Analysis. RPR, [id number] 14:24:00 Test Item Value Reference Range Interpretation Comments RPR (test code = RPR) Non-Reactive Non-Reactive N POC Glucose, [id number] 11:09:00 Test Item Value Reference Range Interpretation [...] = TSH) 2.05 mIU/mL 0.270-4.200 N Lipid [id number] 08:56:00 Test Item Value Reference Range Interpretation Comments Cholesterol (test 215 mg/dL 0-200 H code = CHOL) Triglycerides (test 370 mg/dL 9-200 H code = TRIG) HDL (test code = 33 mg/dL 40-60 L HDL) Chol/HDL (test code 6.5 Ratio 0.0-5.0 H = CHOLPHDL) LDL, Calculated 108 0-130 N (NOTE)RISK O F HEART (test code = LDLC) DISEASEPu blished by [place] Heart AssociationAnal yte Optim al Boderline Increased RiskC HOL <200 200-239 >240TRI G <150 150-199 >200HDL Male: >60 <40HDL Female: >60 <50 LDL < 100 130-15 9 >160 LDL NEAR OPTIMAL IS 100- 129 VLDL (test code = 74 mg/dL 5-40 H VLDL) LDL/HDL (test code = 3 LDLPHDL) POC Glucose, [id number] 05:44:00 Test Item Value Reference Range Interpretation Comments POC Glucose (test 229 mg/dL 70-115 H Notify RN or MDIf you code = POCGLUC) consider you r patient critically ill, the [place] Accu-Chek InformII metershould not be used for Glucose determinations. Draw a venous Glucose and send to the Main Lab for Analysis. POC Glucose, [id number] 11:20:00 Test Item Value Reference Range Interpretation Comments POC Glucose (test 160 mg/dL 70-115 H If you con ventilation equipment tender your code = POCGLUC) patient crit ically ill, the [place] Accu- Chek InformII meters hould not be used for Glu cose determinations. Draw a venous Glucose and send to the Main Lab for Analysis. POC Glucose, [id number] 07:41:00 Test Item Value Reference Range Interpretation Comments POC Glucose (test 121 mg/dL 70-115 H If you con ventilation equipment tender your code = POCGLUC) patient crit ically ill, the [place] Accu- Chek InformII meters hould not be used for Glu cose determinations. Draw a venous Glucose and send to the Main Lab for Analysis. POC Glucose, [id number] 21:24:00 Test Item Value Reference Range Interpretation Comments POC Glucose (test 108 mg/dL 70-115 N If you con ventilation equipment tender your code = POCGLUC) patient crit ically ill, the [place] Accu- Chek InformII meters hould not be used for Glu cose determinations. Draw a venous Glucose and send to the Main Lab for Analysis. POC Glucose, [id number] 15:55:00 Test Item Value Reference Range Interpretation Comments POC Glucose (test 160 mg/dL 70-115 H Notify RN or MDIf you code = POCGLUC) consider you r patient critically ill, the [place] Accu-Chek InformII metershould not be used for Glucose determinations. Draw a venous Glucose and send to the Main Lab for Analysis. POC Glucose, [id number] 11:21:00 Test Item Value Reference Range Interpretation Comments POC Glucose (test 111 mg/dL 70-115 N If you con ventilation equipment tender your code = POCGLUC) patient crit ically ill, the [place] Accu- Chek InformII meters hould not be used for Glu cose determinations. Draw a venous Glucose and send to the Main Lab for Analysis. POC Glucose, [id number] 08:06:00 Test Item Value Reference Range Interpretation Comments POC Glucose (test 135 mg/dL 70-115 H If you con ventilation equipment tender your code = POCGLUC) patient crit ically ill, the [place] Accu- Chek InformII meters hould not be used for Glu cose determinations. Draw a venous Glucose and send to the Main Lab for Analysis. POC Glucose, [id number] 22:43:00 Test Item Value Reference Range Interpretation Comments POC Glucose (test 106 mg/dL 70-115 N If you con ventilation equipment tender your code = POCGLUC) patient crit ically ill, the [place] Accu- Chek InformII meters hould not be used for Glu cose determinations. Draw a venous Glucose and send to the Main Lab for Analysis. POC Glucose, [id number] 16:42:00 Test Item Value Reference Range Interpretation Comments POC Glucose (test 96 mg/dL 70-115 N If you con ventilation equipment tender your code = POCGLUC) patient crit ically ill, the [place] Accu- Chek InformII meters hould not be used for Glu cose determinations. Draw a venous Glucose and send to the Main Lab for Analysis. POC Glucose, [id number] 11:10:00 Test Item Value Reference Range Interpretation Comments POC Glucose (test 149 mg/dL 70-115 H Notify RN or MDIf you code = POCGLUC) consider you r patient critically ill, the [place] Accu-Chek InformII metershould not be used for Glucose determinations. Draw a venous Glucose and send to the Main Lab for Analysis. POC Glucose, [id number] 07:26:00 Test Item Value Reference Range Interpretation Comments POC Glucose (test 124 mg/dL 70-115 H If you con ventilation equipment tender your code = POCGLUC) patient crit ically ill, the [place] Accu- Chek InformII meters hould not be used for Glu cose determinations. Draw a venous Glucose and send to the Main Lab for Analysis. POC Glucose, [id number] 21:16:00 Test Item Value Reference Range Interpretation Comments POC Glucose (test 164 mg/dL 70-115 H Notify RN or MDIf you code = POCGLUC) consider you r patient critically ill, the [place] Accu-Chek InformII metershould not be used for Glucose determinations. Draw a venous Glucose and send to the Main Lab for Analysis. POC Glucose, [id number] 16:34:00 Test Item Value Reference Range Interpretation Comments POC Glucose (test 100 mg/dL 70-115 N If you con ventilation equipment tender your code = POCGLUC) patient crit ically ill, the [place] Accu- Chek InformII meters hould not be used for Glu cose determinations. Draw a venous Glucose and send to the Main Lab for Analysis. POC Glucose, [id number] 11:06:00 Test Item Value Reference Range Interpretation Comments POC Glucose (test 120 mg/dL 70-115 H If you con ventilation equipment tender your code = POCGLUC) patient crit ically ill, the [place] Accu- Chek InformII meters hould not be used for Glu cose determinations. Draw a venous Glucose and send to the Main Lab for Analysis. POC Glucose, [id number] 07:30:00 Test Item Value Reference Range Interpretation Comments POC Glucose (test 80 mg/dL 70-115 N If you con ventilation equipment tender your code = POCGLUC) patient crit ically ill, the [place] Accu- Chek InformII meters hould not be used for Glu cose determinations. Draw a venous Glucose and send to the Main Lab for Analysis. POC Glucose, [id number] 21:17:00 Test Item Value Reference Range Interpretation Comments POC Glucose (test 175 mg/dL 70-115 H Notify RN or MDIf you code = POCGLUC) consider you r patient critically ill, the [place] Accu-Chek InformII metershould not be used for Glucose determinations. Draw a venous Glucose and send to the Main Lab for Analysis. POC Glucose, [id number] 17:46:00 Test Item Value Reference Range Interpretation Comments POC Glucose (test 128 mg/dL 70-115 H If you con ventilation equipment tender your code = POCGLUC) patient crit ically ill, the [place] Accu- Chek InformII meters hould not be used for Glu cose determinations. Draw a venous Glucose and send to the Main Lab for Analysis. POC Glucose, [id number] 11:35:00 Test Item Value Reference Range Interpretation Comments POC Glucose (test 134 mg/dL 70-115 H If you con ventilation equipment tender your code = POCGLUC) patient crit ically ill, the [place] Accu- Chek InformII meters hould not be used for Glu cose determinations. Draw a venous Glucose and send to the Main Lab for Analysis. POC Glucose, [id number] 08:10:00 Test Item Value Reference Range Interpretation Comments POC Glucose (test 220 mg/dL 70-115 H If you con ventilation equipment tender your code = POCGLUC) patient crit ically ill, the [place] Accu- Chek InformII meters hould not be used for Glu cose determinations. Draw a venous Glucose and send to the Main Lab for Analysis. Comprehensive Metabolic [id number] 06:52:00 Test Item Value Reference Range Interpretation [...] National Kidney Foundation,http ://nkd ep.nih.gov CBC with [id number] 06:34:00 Test Item Value Reference Range Interpretation [...] code = ALYMPH) 2.4 K/cumm 0.5-4.6 N [place] Abs (test code = AMONO) 0.7 K/cumm 0.0-1.2 N Eos Abs (test code = AEOS) 0.19 K/cumm 0.00-0.74 N Baso Abs (test code = ABASO) 0.1 K/cumm 0.00-0.21 N Microcytosis (test code = MICRO) Slight POC Glucose, [id number] 20:28:00 Test Item Value Reference Range Interpretation Comments POC Glucose (test 211 mg/dL 70-115 H If you con ventilation equipment tender your code = POCGLUC) patient crit ically ill, the [place] Accu- Chek InformII meters hould not be used for Glu cose determinations. Draw a venous Glucose and send to the Main Lab for Analysis. POC Glucose, [id number] 17:09:00 Test Item Value Reference Range Interpretation Comments POC Glucose (test 146 mg/dL 70-115 H If you con ventilation equipment tender your code = POCGLUC) patient crit ically ill, the [place] Accu- Chek InformII meters hould not be used for Glu cose determinations. Draw a venous Glucose and send to the Main Lab for Analysis. POC Glucose, [id number] 11:53:00 Test Item Value Reference Range Interpretation Comments POC Glucose (test 136 mg/dL 70-115 H If you con ventilation equipment tender your code = POCGLUC) patient crit ically ill, the [place] Accu- Chek InformII meters hould not be used for Glu cose determinations. Draw a venous Glucose and send to the Main Lab for Analysis. POC Glucose, [id number] 07:57:00 Test Item Value Reference Range Interpretation Comments POC Glucose (test 143 mg/dL 70-115 H If you con ventilation equipment tender your code = POCGLUC) patient crit ically ill, the [place] Accu- Chek InformII meters hould not be used for Glu cose determinations. Draw a venous Glucose and send to the Main Lab for Analysis. POC Glucose, [id number] 20:38:00 Test Item Value Reference Range Interpretation Comments POC Glucose (test 152 mg/dL 70-115 H Notify RN or MDIf you code = POCGLUC) consider you r patient critically ill, the [place] Accu-Chek InformII metershould not be used for Glucose determinations. Draw a venous Glucose and send to the Main Lab for Analysis. POC Glucose, [id number] 16:49:00 Test Item Value Reference Range Interpretation Comments POC Glucose (test 171 mg/dL 70-115 H Notify RN or MDIf you code = POCGLUC) consider you r patient critically ill, the [place] Accu-Chek InformII metershould not be used for Glucose determinations. Draw a venous Glucose and send to the Main Lab for Analysis. POC Glucose, [id number] 11:10:00 Test Item Value Reference Range Interpretation Comments POC Glucose (test 160 mg/dL 70-115 H Notify RN or MDIf you code = POCGLUC) consider you r patient critically ill, the [place] Accu-Chek InformII metershould not be used for Glucose determinations. Draw a venous Glucose and send to the Main Lab for Analysis. POC Glucose, [id number] 07:36:00 Test Item Value Reference Range Interpretation Comments POC Glucose (test 126 mg/dL 70-115 H If you con ventilation equipment tender your code = POCGLUC) patient crit ically ill, the [place] Accu- Chek InformII meters hould not be used for Glu cose determinations. Draw a venous Glucose and send to the Main Lab for Analysis. POC Glucose, [id number] 20:51:00 Test Item Value Reference Range Interpretation Comments POC Glucose (test 165 mg/dL 70-115 H Notify RN or MDIf you code = POCGLUC) consider you r patient critically ill, the [place] Accu-Chek InformII metershould not be used for Glucose determinations. Draw a venous Glucose and send to the Main Lab for Analysis. POC Glucose, [id number] 16:42:00 Test Item Value Reference Range Interpretation Comments POC Glucose (test 133 mg/dL 70-115 H If you con ventilation equipment tender your code = POCGLUC) patient crit ically ill, the [place] Accu- Chek InformII meters hould not be used for Glu cose determinations. Draw a venous Glucose and send to the Main Lab for Analysis. POC Glucose, [id number] 11:19:00 Test Item Value Reference Range Interpretation Comments POC Glucose (test 250 mg/dL 70-115 H Notify RN or MDIf you code = POCGLUC) consider you r patient critically ill, the [place] Accu-Chek InformII metershould not be used for Glucose determinations. Draw a venous Glucose and send to the Main Lab for Analysis. Culture, [id number] 08:19:00Specimen: UrineCollected: 07/10/2017 12:47 Status: Final Last [...] the Main Lab for Analysis. POC Glucose, [id number] 20:55:00 Test Item Value Reference Range Interpretation Comments POC Glucose (test 140 mg/dL 70-115 H If you con ventilation equipment tender your code = POCGLUC) patient crit ically ill, the [place] Accu- Chek InformII meters hould not be used for Glu cose determinations. Draw a venous Glucose and send to the Main Lab for Analysis. POC Glucose, [id number] 16:13:00 Test Item Value Reference Range Interpretation Comments POC Glucose (test 151 mg/dL 70-115 H Notify RN or MDIf you code = POCGLUC) consider you r patient critically ill, the [place] Accu-Chek InformII metershould not be used for Glucose determinations. Draw a venous Glucose and send to the Main Lab for Analysis. POC Glucose, [id number] 11:43:00 Test Item Value Reference Range Interpretation Comments POC Glucose (test 170 mg/dL 70-115 H Notify RN or MDIf you code = POCGLUC) consider you r patient critically ill, the [place] Accu-Chek InformII metershould not be used for Glucose determinations. Draw a venous Glucose and send to the Main Lab for Analysis. POC Glucose, [id number] 07:23:00 Test Item Value Reference Range Interpretation Comments POC Glucose (test 207 mg/dL 70-115 H Notify RN or MDIf you code = POCGLUC) consider you r patient critically ill, the [place] Accu-Chek InformII metershould not be used for Glucose determinations. Draw a venous Glucose and send to the Main Lab for Analysis. POC Glucose, [id number] 20:24:00 Test Item Value Reference Range Interpretation Comments POC Glucose (test 208 mg/dL 70-115 H If you con ventilation equipment tender your code = POCGLUC) patient crit ically ill, the [place] Accu- Chek InformII meters hould not be used for Glu cose determinations. Draw a venous Glucose and send to the Main Lab for Analysis. POC Glucose, [id number] 17:14:00 Test Item Value Reference Range Interpretation Comments POC Glucose (test 158 mg/dL 70-115 H If you con ventilation equipment tender your code = POCGLUC) patient crit ically ill, the [place] Accu- Chek InformII meters hould not be used for Glu cose determinations. Draw a venous Glucose and send to the Main Lab for Analysis. Urinalysis [id number] 13:04:00 Test Item Value Reference Range Interpretation Comments Color (test code = COLOR) Straw Yellow,Straw,Pl N yellow Clarity (test code = Clear Clear N CLAR) Specific [place] (test 1.010 1.001-1.035 N code = SPGR) [...] code = Not indicated MEXAM) POC Glucose, [id number] 11:48:00 Test Item Value Reference Range Interpretation Comments POC Glucose (test 135 mg/dL 70-115 H If you con ventilation equipment tender your code = POCGLUC) patient crit ically ill, the [place] Accu- Chek InformII meters hould not be used for Glu cose determinations. Draw a venous Glucose and send to the Main Lab for Analysis. POC Glucose, [id number] 07:47:00 Test Item Value Reference Range Interpretation Comments POC Glucose (test 173 mg/dL 70-115 H If you con ventilation equipment tender your code = POCGLUC) patient crit ically ill, the [place] Accu- Chek InformII meters hould not be used for Glu cose determinations. Draw a venous Glucose and send to the Main Lab for Analysis. Basic Metabolic [id number] 05:18:00 Test Item Value Reference Range Interpretation [...] National Kidney Foundation,http ://nkd ep.nih.gov CBC with [id number] 04:59:00 Test Item Value Reference Range Interpretation [...] code = ALYMPH) 2.7 K/cumm 0.5-4.6 N [place] Abs (test code = AMONO) 0.8 K/cumm 0.0-1.2 N Eos Abs (test code = AEOS) 0.26 K/cumm 0.00-0.74 N Baso Abs (test code = ABASO) 0.0 K/cumm 0.00-0.21 N POC Glucose, [id number] 20:59:00 Test Item Value Reference Range Interpretation Comments POC Glucose (test 199 mg/dL 70-115 H Notify RN or MDIf you code = POCGLUC) consider you r patient critically ill, the [place] Accu-Chek InformII metershould not be used for Glucose determinations. Draw a venous Glucose and send to the Main Lab for Analysis. POC Glucose, [id number] 16:26:00 Test Item Value Reference Range Interpretation Comments POC Glucose (test 170 mg/dL 70-115 H Notify RN or MDIf you code = POCGLUC) consider you r patient critically ill, the [place] Accu-Chek InformII metershould not be used for Glucose determinations. Draw a venous Glucose and send to the Main Lab for Analysis. POC Glucose, [id number] 11:41:00 Test Item Value Reference Range Interpretation Comments POC Glucose (test 246 mg/dL 70-115 H If you con ventilation equipment tender your code = POCGLUC) patient crit shira ill, the [place] Accu- Chek InformII meters hould not be used for Glu cose determinations. Draw a venous Glucose and send to the Main Lab for Analysis. Glycosylated [id number] 07:39:00 Test Item Value Reference Range Interpretation Comments HBA1c (test code = HBA1C) 9.1 % 4.8-5.9 H POC Glucose, [id number] 07:36:00 Test Item Value Reference Range Interpretation Comments POC Glucose (test 206 mg/dL 70-115 H If you con ventilation equipment tender your code = POCGLUC) patient crit shira ill, the [place] Accu- Chek InformII meters hould not be used for Glu cose determinations. Draw a venous Glucose and send to the Main Lab for Analysis. CBC with [id number] 06:09:00 Test Item Value Reference Range Interpretation [...] code = ALYMPH) 3.5 K/cumm 0.5-4.6 N [place] Abs (test code = AMONO) 1.0 K/cumm 0.0-1.2 N Eos Abs (test code = AEOS) 0.19 K/cumm 0.00-0.74 N Baso Abs (test code = ABASO) 0.1 K/cumm 0.00-0.21 N Microcytosis (test code = MICRO) Slight Comprehensive Metabolic [id number] 06:00:00 Test Item Value Reference Range Interpretation [...] been validated by e MDRD study and shoul d be interpretedwith caution.eGFR Re sult Interpretation: eGFR > or = 60 is in t he Normal RangeeGF R < 60 may mean kidney diseaseeGFR < 1 5 may mean kidney failureRange s recommended by the National Kidney Foundation,http ://nkd ep.nih.gov Magnesium, [id number] 06:00:00 Test Item Value Reference Range Interpretation Comments Magnesium (test code = MG) 2.2 mg/dL 1.7-2.5 N [id number] 06:00:00 Test Item Value Reference Range Interpretation Comments Phosphorus (test code = PO4) 2.8 mg/dL 2.70-4.50 N POC Glucose, [id number] 20:44:00 Test Item Value Reference Range Interpretation Comments POC Glucose (test 199 mg/dL 70-115 H If you con ventilation equipment tender your code = POCGLUC) patient crit ically ill, the [place] Accu- Chek InformII meters hould not be used for Glu cose determinations. Draw a venous Glucose and send to the Main Lab for Analysis. POC Glucose, [id number] 16:28:00 Test Item Value Reference Range Interpretation Comments POC Glucose (test 242 mg/dL 70-115 H Notify RN or MDIf you code = POCGLUC) consider you r patient critically ill, the [place] Accu-Chek InformII metershould not be used for Glucose determinations. Draw a venous Glucose and send to the Main Lab for Analysis. POC Glucose, [id number] 13:37:00 Test Item Value Reference Range Interpretation Comments POC Glucose (test 131 mg/dL 70-115 H If you con ventilation equipment tender your code = POCGLUC) patient crit ically ill, the [place] Accu- Chek InformII meters hould not be used for Glu cose determinations. Draw a venous Glucose and send to the Main Lab for Analysis. POC Glucose, [id number] 12:14:00 Test Item Value Reference Range Interpretation Comments POC Glucose (test 100 mg/dL 70-115 N If you con ventilation equipment tender your code = POCGLUC) patient crit ically ill, the [place] Accu- Chek InformII meters hould not be used for Glu cose determinations. Draw a venous Glucose and send to the Main Lab for Analysis. POC Glucose, [id number] 07:30:00 Test Item Value Reference Range Interpretation Comments POC Glucose (test 123 mg/dL 70-115 H If you con ventilation equipment tender your code = POCGLUC) patient crit ically ill, the [place] Accu- Chek InformII meters hould not be used for Glu cose determinations. Draw a venous Glucose and send to the Main Lab for Analysis. Basic Metabolic [id number] 06:05:00 Test Item Value Reference Range Interpretation [...] been validated by e MDRD study and nini d be interpretedwith caution.eGFR Re sult Interpretation: eGFR > or = 60 is in t he Normal RangeeGF R < 60 may mean kidney diseaseeGFR < 1 5 may mean kidney failureRange s recommended by the National Kidney Foundation,http ://nkd ep.nih.gov CBC with [id number] 05:44:00 Test Item Value Reference Range Interpretation [...] code = ALYMPH) 4.8 K/cumm 0.5-4.6 H [place] Abs (test code = AMONO) 0.8 K/cumm 0.0-1.2 N Eos Abs (test code = AEOS) 0.34 K/cumm 0.00-0.74 N Baso Abs (test code = ABASO) 0.1 K/cumm 0.00-0.21 N POC Glucose, [id number] 20:29:00 Test Item Value Reference Range Interpretation Comments POC Glucose (test 152 mg/dL 70-115 H If you con ventilation equipment tender your code = POCGLUC) patient crit ically ill, the [place] Accu- Chek InformII meters hould not be used for Glu cose determinations. Draw a venous Glucose and send to the Main Lab for Analysis. Antibody Screen - [id number] 17:58:00 Test Item Value Reference Range Interpretation Comments Antibody Screen (test code = ABSCR) Negative Blood Type and [id number] 17:44:00 Test Item Value Reference Range Interpretation Comments ABO type (test code = ABO) A Rh Type (test code = RH) Positive POC Glucose, [id number] 16:09:00 Test Item Value Reference Range Interpretation Comments POC Glucose (test 192 mg/dL 70-115 H If you con ventilation equipment tender your code = POCGLUC) patient crit ically ill, the [place] Accu- Chek InformII meters hould not be used for Glu cose determinations. Draw a venous Glucose and send to the Main Lab for Analysis. POC Glucose, [id number] 12:11:00 Test Item Value Reference Range Interpretation Comments POC Glucose (test 249 mg/dL 70-115 H If you con ventilation equipment tender your code = POCGLUC) patient crit ically ill, the [place] Accu- Chek InformII meters hould not be used for Glu cose determinations. Draw a venous Glucose and send to the Main Lab for Analysis. MRI LWR EXTRM NON-JNT WO [id number] 09:25:10LOCATION: [id number]: MRI LWR EXTRM NON-JNT WO CONTRST-LEFTINDICATION: LEFT [...] concerning for injury.US DUPLX LWR EXT ART/BPG, [id number] 08:50:53US DUPLX LWR EXT ART/BPG, BILATCLINICAL HISTORY: non-healing woundsTechnique: Grayscale, color, and spectral sonography of the bilateral lower extremity arteries was performed.FINDINGS:Right leg (waveform / peak systolic velocity)[employer]: Triphasic 95 cm/secProx SFA: Triphasic 92 cm/secMid SFA: Triphasic 81 cm/secDistal SFA: Triphasic 83 cm/secPopliteal: Triphasic 84 cm/secPTA: Monophasic 93 cm/secATA: Triphasic 32 cm/secDPA: Not imaged/bandaging Left leg (waveform / peak systolic velocity)[employer]ACH: Triphasic 88 cm/secProx SFA: Triphasic 93 cm/secMid SFA: Triphasic 82 cm/secDistal SFA: Triphasic 49 cm/secPopliteal: Triphasic 60 cm/secPTA: Triphasic 73 cm/secATA: Triphasic 93 cm/secDPA: Not imaged/bandaging IMPRESSION: 1. Limited exam. Thedorsalis pedis arteries are not imaged.2. Abnormal monophasic waveform in the right posterior tibial artery.3. Otherwise unremarkable exam.Location: R16 CBC with [id number] 08:22:00 Test Item Value Reference Range Interpretation [...] code = ALYMPH) 3.6 K/cumm 0.5-4.6 N [place] Abs (test code = AMONO) 0.6 K/cumm 0.0-1.2 N Eos Abs (test code = AEOS) 0.37 K/cumm 0.00-0.74 N Baso Abs (test code = ABASO) 0.1 K/cumm 0.00-0.21 N Basic Metabolic [id number] 08:03:00 Test Item Value Reference Range Interpretation [...] National Kidney Foundation,http ://nkd ep.nih.gov POC Glucose, [id number] 07:30:00 Test Item Value Reference Range Interpretation Comments POC Glucose (test 110 mg/dL 70-115 N If you con ventilation equipment tender your code = POCGLUC) patient crit ically ill, the [place] Accu- Chek InformII meters hould not be used for Glu cose determinations. Draw a venous Glucose and send to the Main Lab for Analysis. POC Glucose, [id number] 19:57:00 Test Item Value Reference Range Interpretation Comments POC Glucose (test 124 mg/dL 70-115 H If you con ventilation equipment tender your code = POCGLUC) patient crit ically ill, the [place] Accu- Chek InformII meters hould not be used for Glu cose determinations. Draw a venous Glucose and send to the Main Lab for Analysis. POC Glucose, [id number] 16:10:00 Test Item Value Reference Range Interpretation Comments POC Glucose (test 114 mg/dL 70-115 N Notify RN or MDIf you code = POCGLUC) consider you r patient critically ill, the [place] Accu-Chek InformII metershould not be used for Glucose determinations. Draw a venous Glucose and send to the Main Lab for Analysis. POC Glucose, [id number] 11:18:00 Test Item Value Reference Range Interpretation Comments POC Glucose (test 203 mg/dL 70-115 H Notify RN or MDIf you code = POCGLUC) consider you r patient critically ill, the [place] Accu-Chek InformII metershould not be used for Glucose determinations. Draw a venous Glucose and send to the Main Lab for Analysis. Culture, Wound [id number] 09:58:00Specimen: FootCollected: 07/03/2017 17:00 Status: Final Last [...] Streptococcus Beta Hemolytic Streptococcus Group GPOC Glucose, [id number] 07:23:00 Test Item Value Reference Range Interpretation Comments POC Glucose (test 197 mg/dL 70-115 H Notify RN or MDIf you code = POCGLUC) consider you r patient critically ill, the [place] Accu-Chek InformII metershould not be used for Glucose determinations. Draw a venous Glucose and send to the Main Lab for Analysis. POC Glucose, [id number] 16:09:00 Test Item Value Reference Range Interpretation Comments POC Glucose (test 194 mg/dL 70-115 H If you con ventilation equipment tender your code = POCGLUC) patient crit ically ill, the [place] Accu- Chek InformII meters hould not be used for Glu cose determinations. Draw a venous Glucose and send to the Main Lab for Analysis. POC Glucose, [id number] 11:33:00 Test Item Value Reference Range Interpretation Comments POC Glucose (test 193 mg/dL 70-115 H If you con ventilation equipment tender your code = POCGLUC) patient crit ically ill, the [place] Accu- Chek InformII meters hould not be used for Glu cose determinations. Draw a venous Glucose and send to the Main Lab for Analysis. MRI LWR EXTRM NON-JNT WO [id number] 08:18:56EXAM: MRI right foot without contrastLocation: [id number]: History of amputation, rule out osteomy elitisCOMPARISON: [...] 140 mg/dL 70-115 H If you con ventilation equipment tender your code = POCGLUC) patient crit ically ill, the [place] Accu- Chek InformII meters hould not be used for Glu cose determinations. Draw a venous Glucose and send to the Main Lab for Analysis. Sed Rate ESR ([place])2017-07-05 06:40:00 Test Item Value Reference Range Interpretation Comments ESR (test code = HESR) 54 mm/Hr 0-9 H C-Reactive Protein, [id number] 05:41:00 Test Item Value Reference Range Interpretation Comments CRP (test code = CRP) 34.7 mg/L 0.0-5.0 H POC Glucose, [id number] 21:22:00 Test Item Value Reference Range Interpretation Comments POC Glucose (test 141 mg/dL 70-115 H If you con ventilation equipment tender your code = POCGLUC) patient crit ically ill, the [place] Accu- Chek InformII meters hould not be used for Glu cose determinations. Draw a venous Glucose and send to the Main Lab for Analysis. POC Glucose, [id number] 16:09:00 Test Item Value Reference Range Interpretation Comments POC Glucose (test 156 mg/dL 70-115 H If you con ventilation equipment tender your code = POCGLUC) patient crit ically ill, the [place] Accu- Chek InformII meters hould not be used for Glu cose determinations. Draw a venous Glucose and send to the Main Lab for Analysis. POC Glucose, [id number] 12:05:00 Test Item Value Reference Range Interpretation Comments POC Glucose (test 170 mg/dL 70-115 H If you con ventilation equipment tender your code = POCGLUC) patient crit ically ill, the [place] Accu- Chek InformII meters hould not be used for Glu cose determinations. Draw a venous Glucose and send to the Main Lab for Analysis. XR FOOT [id number] 08:56:55XR FOOT 2V-LEFTLOCATION: [id number]:left foot ulcer COMPARISON: None.DISCUSSION:Frontal and lateral radiographs [...] stump.2. No definite acute osseous abnormalities.XR FOOT [id number] 08:53:30XR FOOT 2V-RIGHTLOCATION: [id number]:right foot stump ulcer COMPARISON: None.DISCUSSION:Frontal and lateral radiographs of the right foot were obtained. Amputation changes at the proximal metatarsals are noted.No definite suspicious focal osseous destruction or periosteal reactionis seen.Otherwise, no acute fracture or dislocation is seen.The joint spaces are grossly preserved.IMPRESSION:1. 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 No definite acute osseous abnormalities.POC Glucose, [id number] 07:50:00 Test Item Value Reference Range Interpretation Comments POC Glucose (test 139 mg/dL 70-115 H If you con ventilation equipment tender your code = POCGLUC) patient crit ically ill, the [place] Accu- Chek InformII meters hould not be used for Glu cose determinations. Draw a venous Glucose and send to the Main Lab for Analysis. CBC with [id number] 06:19:00 Test Item Value Reference Range Interpretation [...] code = ALYMPH) 2.7 K/cumm 0.5-4.6 N [place] Abs (test code = AMONO) 0.6 K/cumm 0.0-1.2 N Eos Abs (test code = AEOS) 0.32 K/cumm 0.00-0.74 N Baso Abs (test code = ABASO) 0.1 K/cumm 0.00-0.21 N Lipid [id number] 06:15:00 Test Item Value Reference Range Interpretation Comments Cholesterol (test 133 mg/dL 0-200 N code = CHOL) Triglycerides (test 164 mg/dL 9-200 N code = TRIG) HDL (test code = 31 mg/dL 40-60 L HDL) Chol/HDL (test code 4.3 Ratio 0.0-5.0 N = CHOLPHDL) LDL, Calculated 69 0-130 N (NOTE)RISK O F HEART (test code = LDLC) DISEASEPu blished by [place] Heart AssociationAnal yte Optim al Boderline Increased RiskC HOL <200 200-239 >240TRI G <150 150-199 >200HDL Male: >60 <40HDL Female: >60 <50 LDL < 100 130-15 9 >160 LDL NEAR OPTIMAL IS 100- 129 VLDL (test code = 33 mg/dL 5-40 N VLDL) LDL/HDL (test code = 2 LDLPHDL) POC Glucose, [id number] 17:14:00 Test Item Value Reference Range Interpretation Comments POC Glucose (test 129 mg/dL 70-115 H If you con ventilation equipment tender your code = POCGLUC) patient crit ically ill, the [place] Accu- Chek InformII meters hould not be used for Glu cose determinations. Draw a venous Glucose and send to the Main Lab for Analysis. RPR, [id number] 12:26:00 Test Item Value Reference Range Interpretation Comments RPR (test code = RPR) Non-Reactive Non-Reactive N POC Glucose, [id number] 12:05:00 Test Item Value Reference Range Interpretation Comments POC Glucose (test 173 mg/dL 70-115 H If you con ventilation equipment tender your code = POCGLUC) patient crit ically ill, the [place] Accu- Chek InformII meters hould not be used for Glu cose determinations. Draw a venous Glucose and send to the Main Lab for Analysis. POC Glucose, [id number] 07:57:00 Test Item Value Reference Range Interpretation Comments POC Glucose (test 144 mg/dL 70-115 H If you con ventilation equipment tender your code = POCGLUC) patient crit ically ill, the [place] Accu- Chek InformII meters hould not be used for Glu cose determinations. Draw a venous Glucose and send to the Main Lab for Analysis. POC Glucose, [id number] 06:19:00 Test Item Value Reference Range Interpretation [...] = TSH) 2.08 mIU/mL 0.270-4.200 N Lipid [id number] 23:52:00 Test Item Value Reference Range Interpretation Comments Cholesterol (test 171 mg/dL 0-200 N code = CHOL) Triglycerides (test 171 mg/dL 9-200 N code = TRIG) HDL (test code = 37 mg/dL 40-60 L HDL) Chol/HDL (test code 4.6 Ratio 0.0-5.0 N = CHOLPHDL) LDL, Calculated 100 0-130 N (NOTE)RISK O F HEART (test code = LDLC) DISEASEPu blished by [place] Heart AssociationAnal yte Optim al Boderline Increased RiskC HOL <200 200-239 >240TRI G <150 150-199 >200HDL Male: >60 <40HDL Female: >60 <50 LDL < 100 130-15 9 >160 LDL NEAR OPTIMAL IS 100- 129 VLDL (test code = 34 mg/dL 5-40 N VLDL) LDL/HDL (test code = 3 LDLPHDL) POC Glucose, [id number] 20:03:00 Test Item Value Reference Range Interpretation Comments POC Glucose (test 221 mg/dL 70-115 H If you con ventilation equipment tender your code = POCGLUC) patient crit ically ill, the [place] Accu- Chek InformII meters hould not be used for Glu cose determinations. Draw a venous Glucose and send to the Main Lab for Analysis. POC Glucose, [id number] 16:47:00 Test Item Value Reference Range Interpretation Comments POC Glucose (test 304 mg/dL 70-115 H If you con ventilation equipment tender your code = POCGLUC) patient crit ically ill, the Danial Accu- Chek InformII meters hould not be used for Glu cose determinations. Draw a venous Glucose and send to the Main Lab for Analysis. POC Glucose, [id number] 15:20:00 Test Item Value Reference Range Interpretation Comments POC Glucose (test 368 mg/dL 70-115 H If you con ventilation equipment tender your code = POCGLUC) patient crit ically ill, the Danial Accu- Chek InformII meters hould not be used for Glu cose determinations. Draw a venous Glucose and send to the Main Lab for Analysis. [id number] 08:27:00 Test Item Value Reference Range Interpretation [...] g/dL 0.00-0.01 N code = ETOHU) Urinalysis [id number] 07:59:00 Test Item Value Reference Range Interpretation Comments Color (test code = COLOR) Yellow Yellow,Straw,Pl N yellow Clarity (test code = Clear Clear N CLAR) Specific [place] (test 1.026 1.001-1.035 N code = SPGR) [...] code = Few /HPF BACT) POC Glucose, [id number] 07:23:00 Test Item Value Reference Range Interpretation Comments POC Glucose (test 174 mg/dL 70-115 H If you con ventilation equipment tender your code = POCGLUC) patient crit ically ill, the Danial Accu- Chek InformII meters hould not be used for Glu cose determinations. Draw a venous Glucose and send to the Main Lab for Analysis. [id number] 06:52:00 Test Item Value Reference Range Interpretation Comments Acetone [Serum] (test code = Negative Negative N ACETONE) Comprehensive Metabolic [id number] 06:19:00 Test Item Value Reference Range Interpretation [...] National [employer] Foundation,http ://nkd ep.nih.gov CBC with [id number] 06:00:00 Test Item Value Reference Range Interpretation [...] code = ALYMPH) 3.1 K/cumm 0.5-4.6 N [place] Abs (test code = AMONO) 0.9 K/cumm 0.0-1.2 N Eos Abs (test code = AEOS) 0.29 K/cumm 0.00-0.74 N Baso Abs (test code = ABASO) 0.1 K/cumm 0.00-0.21 N POC Glucose, [id number] 05:52:00 Test Item Value Reference Range Interpretation Comments POC Glucose (test 342 mg/dL 70-115 H If you con ventilation equipment tender your code = POCGLUC) patient crit ically ill, the [place]ial Accu- Chek InformII meters hould not be used for Glu cose determinations. Draw a venous Glucose and send to the Main Lab for Analysis.
[2020-07-16] MEDS ORDERED: NA CHLORIDE 0.9% 1,000 ML ONE ×2 (19:53→21:17)
[2020-07-16 20:04] LABS: Absolute Lymphocytes (CBC) 2.2 K/uL (0.7-4.9); Basophils % 0.8 % (0-1.3); Hematocrit 34.9 % (39.6-49.0); Lymphocytes % 16.6 % (15.3-44.8); MPV 7.9 fL (7.6-11.3); RBC Red Blood Cell Count 4.68 M/uL (4.33-5.43)
[2020-07-16] MEDS ORDERED: MORPHINE 4 MG/ML SYR ONE ×2 (20:22→21:17)
--- NOTE | 2020-07-16 20:24 | RAD REPORT ---
EXAM DESCRIPTION: RAD - Foot Left 3 View - 07/16/2020 8:12 pm CLINICAL HISTORY: PAIN, diabetes, history of osteomyelitis COMPARISON: Foot Left 3 View dated 05/09/2020; Foot Left 3 View dated 04/15/2020 FINDINGS: Distal fifth metatarsal and toe or absent. No fracture, dislocation or periosteal reaction . No destructive process seen to localize an active osteomyelitis. Prominent degenerative change pres ent at the medial cuneiform first metatarsal articulation. Soft tissue swelling of the distal foot no katrina. No air or foreign body in the soft tissues. IMPRESSION: Degenerative and postsurgical changes are present. No acute or destructive bone process. Soft tissues of the distal foot appear more thickened and edematous minimal May 09. No air or fore ign body seen.
[2020-07-16 20:34] LABS: ALT/SGPT 13 U/L (12-78); AST/SGOT 8 U/L (15-37); Albumin 2.8 g/dL (3.4-5.0); Alkaline Phosphatase 137 U/L (45-117); Bilirubin Direct < 0.1 mg/dL (0-0.2); Bilirubin Total 0.3 mg/dL (0.2-1.0); Protein, Total 7.5 g/dL (6.4-8.2)
--- NOTE | 2020-07-16 20:55 | RAD REPORT ---
EXAM DESCRIPTION: US - Extremity Venous Uni Ltd - 07/16/2020 8:23 pm CLINICAL HISTORY: Pain;Swelling COMPARISON: None. TECHNIQUE: Real-time sonographic evaluation of the left lower extremity deep venous system was perfo rmed. FINDINGS: Normal compressibility, flow augmentation, phasic flow and spontaneous flow are identified in the left lower extremity common femoral, superficial femoral, popliteal and posterior tibial vein s. No intraluminal filling defects seen. IMPRESSION: No DVT in the left lower extremity.
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
[2020-07-16] MEDS ORDERED: SMZ./TMP. 800/160 MG TABLET ONE (21:27)
[2020-07-16] MEDS ORDERED: levoFLOXacin 500 MG TAB ONE (21:27)
[2020-07-16] MEDS ORDERED: INSULIN -REGULAR HUMAN 50 UNIT/0.5 ML ML ONE (21:27)
[2020-07-16] MEDS ORDERED: TRAMADOL HCL 50 MG TAB ONE (22:51)
[2020-07-16 23:20] VITALS: TEMP 99.7
[2020-07-16 23:22] VITALS: O2SAT 100
[2020-07-16 23:27] VITALS: BP 117/91
== END 2020-07-16 23:00 | disposition home or self-care (01) ==
LOC: ER 19:00
DX: L03.116 Cellulitis of left lower limb (principal); E11.40 Type 2 diabetes mellitus with diabetic neuropathy, unspecified; F20.9 Schizophrenia, unspecified; Z79.4 Long term (current) use of insulin; Z88.3 Allergy status to other anti-infective agents
CPT/HCPCS: 87040 ×2; 87070; 85025; 80048; 36415; 87205; 80076; 83605; 85652; 87077 ×3; 87186 ×3; 84145; 86140; 73630; 93971; 96375; 96374; 99284; J7030 ×2

== ENCOUNTER 2020-07-28 20:08 | Inpatient (IN) | payer OTHER ==
--- OUTSIDE RECORDS SUMMARY | 2020-07-28 20:11 | XMS REPORT | Clinical Summary ---
:1985 Author Organization [facility] Address [address] [place] [id number] Care Team Providers Name Role Phone Asked, [...] VACCINE 04/15/2020 11/13/2018 Results Not on fileafter 07/28/2019 Additional Health Concerns Infection Onset Date Last Indicated Resolved Time C.Difficile (E) 11/16/2018 11/17/2018 Insurance Payer Benefit Plan / Subscriber ID Effective Dates Phone Addre ss Type Group MEDICARE MEDICARE PART A [id number] 2008-Present [employer] Medicare AND B MEDICAID MEDICAID [id number] 2011-Present Med icaid [id number] Advance Directives For more information, please contact: [phone] Type Date Recorded Patient Global Logistics Manager Explanati on Advance Directives, Living Will 11/12/2018 5:45 AM and Medical Power of Breast Splitter
--- OUTSIDE RECORDS SUMMARY | 2020-07-28 20:15 | XMS REPORT | Continuity of Care Document ---
:1985 Author Organization [facility] t Address [address] [place] [address] Care Team Providers Name Role Phone UNKNOWN [...] to drug Vancomyc Propensi Active GI Headache, Juilo ston in ty to Intolerance 11-12 Nausea/Vo Me thodi adverse 00:00: miting st reaction 00 s to drug Social History Social Habit Start Date Stop Date Quantity Comments Source History of Cigarette Smoker [place] [facility] tobacco use History [facility] od[facility] Alcohol Std Drinks History [facility] Alcohol Binge Sex Assigned At [facility] ethodist Tobacco use and 2018-11-12 2018-11-12 Never used [facility] ethodist exposure 00:00:00 00:00:00 Alcohol intake 2018-11-12 2018-11-12 Current [facility] thodist 00:00:00 00:00:00 non-drinker of alcohol (finding) History [facility] 2018-11-12 2018-11-12 1 [place] [facility] Alcohol Frequency 00:00:00 00:00:00 Smoking Status Start Date Stop Date Source Current every day smoker 2018-11-12 00:00:00 Julio magana [facility] Medications Ordered Filled Start Stop Current Ordering Indication Dosage Frequency Signature Comments Components Source Medication Medication Date Date Medication? Clinician (SIG) Name Name gabapentin Yes 800mg [id number] Take 800 [place] (NEURONTIN) 3-06 [id number] mg by Ania shine 800 mg 18:17: 3D mouth 3 st tablet 57 (three) times a day. HYDROcodone Yes 1{tbl} Q6H Take 1 [place] -acetaminop 3-06 tablet by Met austin snow (NORCO) 18:17: mouth st 10-325 mg 57 every 6 per tablet (six) hours as needed for moderate pain. lisinopril Yes 20mg QD Take 20 mg H ouizzy (PRINIVIL,Z 3-06 by mouth Meth lakia ESTRIL) 20 18:17: daily. st mg tablet 57 Immunizations Ordered Immunization Filled Immunization Date Status Commen ts Source Name Name FLUCELVAX QUAD PF 2018-11-13 Completed [place] 00:00:00 [facility] Procedures This patient has no known procedures. Plan of Care Planned Activity Planned Date Details Comments Source Future Scheduled 2020-04-15 INFLUENZA VACCINE Maximilian resendez [facility] Test 00:00:00 [code = INFLUENZA VACCINE] Future Scheduled 1994 DIABETES: RETINAL EYE [place] [facility] Test 00:00:00 EXAM [code = DIABETES: RETINAL EYE EXAM] Future Scheduled 1994 DIABETIC FOOT EXAM [place] [facility] 00:00:00 [code = DIABETIC FOOT EXAM] Future Scheduled 1994 URINE MICROALBUMIN [place] [facility] 00:00:00 [code = URINE MICROALBUMIN] Encounters Start End Encounter Admission Attending Care Care Encounter Source Date/Time Date/Time Type Type Clinicians Facility Department ID 2020-04-20 Inpatient Robson Salinas [facility] [id number] 17:51:00 Robson Salinas -[id number] [facility] 2017-12-16 Inpatient [facility] [id number] [facility]. 09:23:00 [facility] 2020-04-20 2020-04-24 Inpatient 3 Robson Salinas [facility] [id number] 17:51:00 16:30:00 Jose Roberto Salinaskeel [facility] 2019-08-12 2019-08-17 Inpatient E PRAKASH POWELL [facility] [id number] [place] 00:12:00 14:40:00 [facility] 2017-07-02 2017-07-07 Inpatient E KARI, [facility] [id number] [facility] 14:57:00 22:44:00 [facility] Results Test Description Test Time Test [...] to the main Lab for analysis. POC [id number] 08:19:34 Test Item Value Reference Range Interpretation Comments Glucose POC (test 153 mg/dL 70-115 H Notify RN or MDIf you code = Glucose POC) consider your patient critically ill, the Danial-Accu Chec k Infrom II meter should not be used for Glucos e determination. Draw a venous Glucose and send to the main Lab for analysis. POC [id number] 20:30:57 Test Item Value Reference Range Interpretation Comments Glucose POC (test 79 mg/dL 70-115 If you con tub washer your code = Glucose POC) patient critically ill, the Danial-Accu Check Infrom II meter should not be used for Glucose determination. Draw a venous Glucose and send to the main Lab for analysis. POC [id number] 17:23:03 Test Item Value Reference Range Interpretation Comments Glucose POC (test 210 mg/dL 70-115 H If you con tub washer your code = Glucose POC) patient critically ill, the Danial-Accu Check Infrom II meter should not be used for Glucose determination. Draw a venous Glucose and send to the main Lab for analysis. POC [id number] 12:00:58 Test Item Value Reference Range Interpretation Comments Glucose POC (test 117 mg/dL 70-115 H If you con tub washer your code = Glucose POC) patient critically ill, the Danial-Accu Check Infrom II meter should not be used for Glucose determination. Draw a venous Glucose and send to the main Lab for analysis. POC [id number] 08:07:34 Test Item Value Reference Range Interpretation Comments Glucose POC (test 131 mg/dL 70-115 H If you con tub washer your code = Glucose POC) patient critically ill, the Danial-Accu Check Infrom II meter should not be used for Glucose determination. Draw a venous Glucose and send to the main Lab for analysis. US Lower Ext Arterial Duplex [id number] 22:36:02Patient: RAYMUNDO LLANES Date/Time04/22/202019:13 CDTReason for ExamL LE pain, hx of DM and osteo;Diminished or Absent Pulse(s)ReportDICTATION LOCATION: [id number]: Male, 35 years of age with left [...] the left leg. Final Dictated by: Yumi Schafferictated DT/TM: 04/22/2020 10:26 pmSigned by: Yumi Schaffer LSigned (Electronic Signature): 04/22/2020 10:36 pm XR Foot 2 Views [id number] 22:25:55Patient: RAYMUNDO LLANES Date/Time04/22/202019:00 CDTReason for ExamHeel painReportDICTATION LOCATION: [id number]: Male, 35 years of age with Heel [...] Schaffer LSigned (Electronic Signature): 04/22/2020 10:25 pmPOC [id number] 20:23:56 Test Item Value Reference Range Interpretation Comments Glucose POC (test 324 mg/dL 70-115 H If you con tub washer your code = Glucose POC) patient critically ill, the Danial-Accu Check Infrom II meter should not be used for Glucose determination. Draw a venous Glucose and send to the main Lab for analysis. POC [id number] 16:39:31 Test Item Value Reference Range Interpretation Comments Glucose POC (test 114 mg/dL 70-115 If you con tub washer your code = Glucose POC) patient critically ill, the Danial-Accu Check Infrom II meter should not be used for Glucose determination. Draw a venous Glucose and send to the main Lab for analysis. POC [id number] 11:52:30 Test Item Value Reference Range Interpretation Comments Glucose POC (test 188 mg/dL 70-115 H If you con tub washer your code = Glucose POC) patient critically ill, the Danial-Accu Check Infrom II meter should not be used for Glucose determination. Draw a venous Glucose and send to the main Lab for analysis. POC [id number] 07:55:26 Test Item Value Reference Range Interpretation Comments Glucose POC (test 232 mg/dL 70-115 H If you con tub washer your code = Glucose POC) patient critically ill, the Danial-Accu Check Infrom II meter should not be used for Glucose determination. Draw a venous Glucose and send to the main Lab for analysis. POC [id number] 19:55:26 Test Item Value Reference Range Interpretation Comments Glucose POC (test 132 mg/dL 70-115 H If you con tub washer your code = Glucose POC) patient critically ill, the Danial-Accu Check Infrom II meter should not be used for Glucose determination. Draw a venous Glucose and send to the main Lab for analysis. POC [id number] 16:18:23 Test Item Value Reference Range Interpretation Comments Glucose POC (test 168 mg/dL 70-115 H If you con tub washer your code = Glucose POC) patient critically ill, the Danial-Accu Check Infrom II meter should not be used for Glucose determination. Draw a venous Glucose and send to the main Lab for analysis. Complete Blood Count with [id number] 12:01:18 Test Item Value Reference Range Interpretation [...] = 0.00 x10 N NRBC Abs) Automated [id number] 12:01:18 Test Item Value Reference Range Interpretation Comments Neutro Auto (test code = Neutro 59.7 % 36.0-70.0 Auto) Lymph Auto (test code = Lymph Auto) 31.1 % 12.0-44.0 Murray Auto (test code = Murray Auto) 5.6 % 0.0-11.0 Eos, Auto (test code = Eos, Auto) 2.3 % 0.0-7.0 Basophil Auto (test code = Basophil 0.8 % 0.0-2.0 Auto) Neutro Absolute (test code = Neutro 5.0 x10 1.6-7.4 Absolute) Lymph Absolute (test code = Lymph 2.62 x10 .50-4.60 Absolute) Murray Absolute (test code = Murray .47 x10 .00-1.20 Absolute) Eos Absolute (test code = Eos 0.19 x10 0.00-0.74 Absolute) Baso Absolute (test code = Baso 0.07 x10 0.00-0.21 Absolute) IG [id number] 12:01:18 Test Item Value Reference Range Interpretation Comments IG (test code = IG) 0.5 % 0.0-5.0 IG Abs (test code = IG Abs) 0 x10 N Comprehensive Metabolic [id number] 12:00:10 Test Item Value Reference Range Interpretation [...] = Lipemia) 0 g/dL 1-2 Comprehensive Metabolic [id number] 12:00:10 Test Item Value Reference Range Interpretation [...] = 0 g/dL 1-2 Lipemia) Comprehensive Metabolic [id number] 12:00:10 Test Item Value Reference Range Interpretation [...] ag e have not been validated by [facility] MDRD study and should be interpreted [...] ag e have not been validated by [facility] MDRD study and should be interpreted [...] code = 0 g/dL 1-2 Lipemia) POC [id number] 11:43:29 Test Item Value Reference Range Interpretation Comments Glucose POC (test 238 mg/dL 70-115 H If you con tub washer your code = Glucose POC) patient critically ill, the Danial-Accu Check Infrom II meter should not be used for Glucose determination. Draw a venous Glucose and send to the main Lab for analysis. POC [id number] 08:10:58 Test Item Value Reference Range Interpretation Comments Glucose POC (test 206 mg/dL 70-115 H If you con tub washer your code = Glucose POC) patient critically ill, the Danial-Accu Check Infrom II meter should not be used for Glucose determination. Draw a venous Glucose and send to the main Lab for analysis. Hemoglobin [id number] 07:40:45 Test Item Value Reference Range Interpretation Comments Hemoglobin A1c (test code 13.1 % 4.0-5.8 H Di abetic >=6.5 = Hemoglobin A1c) %Prediabet es 5.7-6.4 %Normal <5.7 % RPR [id number] 07:09:26 Test Item Value Reference Range Interpretation Comments RPR Qual (test code = RPR Qual) Non-Reactive Non-Reactive Reactive Control (test code = Reactive Reactive Control) Weak Reactive Control (test Weak Reactive code = Weak Reactive Control) Non-Reactive Control (test code Non-Reactive = Non-Reactive Control) Lot # (test code = Lot #) [id number] N Expiration Dt (test code = 06-14-2021 N Expiration Dt) Lipid [id number] 06:56:22 Test Item Value Reference Range Interpretation [...] LDL/HDL Ratio=L DL Calc/HDL Chol Thyroid Stimulating [id number] 06:56:22 Test Item Value Reference Range Interpretation Comments TSH (test code = TSH) 1.678 mcIU/mL 0.550-4.780 POC [id number] 05:07:02 Test Item Value Reference Range Interpretation Comments Glucose POC (test 241 mg/dL 70-115 H If you con tub washer your code = Glucose POC) patient critically ill, the Danial-Accu Check Infrom II meter should not be used for Glucose determination. Draw a venous Glucose and send to the main Lab for analysis. POC [id number] 20:27:59 Test Item Value Reference Range Interpretation Comments Glucose POC (test 420 mg/dL 70-115 If you con tub washer your code = Glucose POC) patient critically ill, the Danial-Accu Check Infrom II meter should not be used for Glucose determination. Draw a venous Glucose and send to the main Lab for analysis. POC [id number] 17:53:32 Test Item Value Reference Range Interpretation Comments Glucose POC (test 285 mg/dL 70-115 H If you con tub washer your code = Glucose POC) patient critically ill, the Danial-Accu Check Infrom II meter should not be used for Glucose determination. Draw a venous Glucose and send to the main Lab for analysis. ANAEROBIC [id number] 14:27:00 Test Item Value Reference Range Interpretation Comments Culture Observations NO ANAEROBES ISOLATED (test code = COB1) AT 5 DAYS. CULTURE HELD FOR 5 DAYS ANAEROBIC [id number] 14:27:00 Test Item Value Reference Range Interpretation Comments Culture Observations NO ANAEROBES ISOLATED (test code = COB1) AT 5 DAYS. CULTURE HELD FOR 5 DAYS WOUND/SKIN/ABS.&GRAMSTAIN [id number] 10:33:00 Test Item Value Reference Range Interpretation Comments Direct Exam FEW WHITE BLOOD CELLS (test code = SEEN DE1) Direct Exam NO ORGANISMS SEEN (test code = DE2) Isolate 1 Coagulase negative REFER TO #[id number] (test code = staphylococcus FOR IDENTIFIC ATION ISO1) AND SUSCEPTIBIL ITY WOUND/SKIN/ABS.&GRAMSTAIN [id number] 10:32:00 Test Item Value Reference Range Interpretation Comments Direct Exam (test code NO WHITE BLOOD CELLS = DE1) SEEN Direct Exam (test code NO ORGANISMS SEEN = DE2) Isolate 1 (test code = Alvaro prajapati ISO1) GLUCOMETER GLUCOSE- LAB USE [id number] 11:30:00 Test Item Value Reference Range Interpretation Comments GLUCOMETER (test code 275 mg/dL 70-100 H CLEANE D METERMeter ID: = GMG) [id number] tor: 9888 LORETTA CALDERON TTLE BLOOD [id number] 07:35:00 Test Item Value Reference Range Interpretation [...] 8.3 mg/dL 8.3-9.5 GLUCOMETER GLUCOSE- LAB USE [id number] 06:05:00 Test Item Value Reference Range Interpretation Comments GLUCOMETER (test code 173 mg/dL 70-100 H CLEANE D METERMeter ID: = GMG) [id number] tor: 9910 IS[address] BYRD CBC (INCLUDES AUTOMATED DIFFERENTIAL)*[id number] 05:47:00 Test Item Value Reference Range Interpretation [...] H CLEANE D METERMeter ID: = GMG) [id number] tor: 9999 JAYASREE VASUPILLAI GLUCOMETER GLUCOSE- LAB USE [id number] 16:17:00 Test Item Value Reference Range Interpretation Comments GLUCOMETER (test 306 mg/dL 70-100 H DAILY MAINT ENANCEMeter code = GMG) ID: [id number] perator: [id number] JAYASREE V ASUPILLAI GLUCOMETER GLUCOSE- LAB USE [id number] 12:08:00 Test Item Value Reference Range Interpretation Comments GLUCOMETER (test code = 241 mg/dL 70-100 H Mete r ID: GMG) [id number] tor: 9830 OZZIE TAA GLUCOMETER GLUCOSE- LAB USE [id number] 09:52:00 Test Item Value Reference Range Interpretation Comments GLUCOMETER (test 239 mg/dL 70-100 H DAILY MAINT ENANCEMeter code = GMG) ID: [id number] perator: [id number] JAYASREE V ASUPILLAI COMPREHENSIVE METABOLIC [...] 31 IU/L <=78 GLUCOMETER GLUCOSE- LAB USE [id number] 05:14:00 Test Item Value Reference Range Interpretation Comments GLUCOMETER (test code 194 mg/dL 70-100 H CLEANE D METERMeter ID: = GMG) [id number] tor: 9581 LEANNE TSAION PRO TIME AND PTT 2019-08-16 02:47:00 Test [...] Order Code is ANTI-XA CBC (INCLUDES AUTOMATED DIFFERENTIAL)*[id number] 02:26:00 Test Item Value Reference Range Interpretation [...] = NORMAL WRBCMOR) GLUCOMETER GLUCOSE- LAB USE [id number] 20:26:00 Test Item Value Reference Range Interpretation Comments GLUCOMETER (test code 360 mg/dL 70-100 H CLEANE D METERMeter ID: = GMG) [id number] tor: 9588 DOC SHARIF GLUCOMETER GLUCOSE- LAB USE [id number] 16:22:00 Test Item Value Reference Range Interpretation Comments GLUCOMETER (test code = 246 mg/dL 70-100 H Mete r ID: GMG) [id number] tor: 9905 RICHARD COOK MACHO GLUCOMETER GLUCOSE- LAB USE [id number] 11:54:00 Test Item Value Reference Range Interpretation Comments GLUCOMETER (test code = 241 mg/dL 70-100 H Mete r ID: GMG) [id number] tor: 9924 OFELIA QUINTANA GLUCOMETER GLUCOSE- LAB USE [id number] 05:11:00 Test Item Value Reference Range Interpretation Comments GLUCOMETER (test 314 mg/dL 70-100 H DAILY MAINT ENANCEMeter code = GMG) ID: [id number] perator: [id number] JAYASREE V ASUPILLAI GLUCOMETER GLUCOSE- LAB USE [id number] 19:43:00 Test Item Value Reference Range Interpretation Comments GLUCOMETER (test 288 mg/dL 70-100 H DAILY MAINT ENANCEMeter code = GMG) ID: [id number] perator: [id number] JAYASREE V ASUPILLAI GLUCOMETER GLUCOSE- LAB USE [id number] 16:50:00 Test Item Value Reference Range Interpretation Comments GLUCOMETER (test 186 mg/dL 70-100 H DAILY MAINT ENANCEMeter code = GMG) ID: [id number] perator: 9924 OFELIA Resendez ICKERSON WOUND/SKIN/ABS.&GRAMSTAIN [id number] 11:53:00 Test Item Value Reference Interpretation Comments [...] ARE EXTREMELY RARE. GLUCOMETER GLUCOSE- LAB USE [id number] 11:51:00 Test Item Value Reference Range Interpretation Comments GLUCOMETER (test code = 181 mg/dL 70-100 H Mete r ID: GMG) [id number] tor: 9905 RICHARD KONG GLUCOMETER GLUCOSE- LAB USE [id number] 06:08:00 Test Item Value Reference Range Interpretation Comments GLUCOMETER (test code = 264 mg/dL 70-100 H Mete r ID: GMG) [id number] tor: 2013 EVELIN MENDOZAO GLUCOMETER GLUCOSE- LAB USE [id number] 19:56:00 Test Item Value Reference Range Interpretation Comments GLUCOMETER (test code 278 mg/dL 70-100 H CLEANE D METERMeter ID: = GMG) [id number] tor: 9588 DOC BABCOCKU GLUCOMETER GLUCOSE- LAB USE [id number] 16:30:00 Test Item Value Reference Range Interpretation Comments GLUCOMETER (test code = 456 mg/dL 70-100 HH Mete r ID: GMG) [id number] tor: 9169 BRI MIRT O GLUCOMETER GLUCOSE- LAB USE [id number] 12:08:00 Test Item Value Reference Range Interpretation Comments GLUCOMETER (test code = 302 mg/dL 70-100 H Mete r ID: GMG) [id number] tor: 9924 OFELIA QUINTANA MRI LOW EXT [...] with nonunion atthe second metatarsal fracture. BLOOD [id number] 07:42:00 Test Item Value Reference Interpretation Comments [...] 31A) 18 IU/L <=78 CBC (INCLUDES AUTOMATED DIFFERENTIAL)*[id number] 05:59:00 Test Item Value Reference Range Interpretation [...] = NORMAL WRBCMOR) GLUCOMETER GLUCOSE- LAB USE [id number] 04:53:00 Test Item Value Reference Range Interpretation Comments GLUCOMETER (test code = 374 mg/dL 70-100 H Mete r ID: GMG) [id number] tor: 9908 INO HERMANA GLUCOMETER GLUCOSE- LAB USE [id number] 23:49:00 Test Item Value Reference Range Interpretation Comments GLUCOMETER (test code = 192 mg/dL 70-100 H Mete r ID: GMG) [id number] tor: 4845 CHRISTINA ANG N GLUCOMETER GLUCOSE- LAB USE [id number] 19:32:00 Test Item Value Reference Range Interpretation Comments GLUCOMETER (test code = 183 mg/dL 70-100 H Mete r ID: GMG) [id number] tor: 9908 INO HUERTA GLUCOMETER GLUCOSE- LAB USE [id number] 16:43:00 Test Item Value Reference Range Interpretation Comments GLUCOMETER (test code = 244 mg/dL 70-100 H Mete r ID: GMG) [id number] tor: 9924 OFELIA MARIANO GLUCOMETER GLUCOSE- LAB USE [id number] 12:15:00 Test Item Value Reference Range Interpretation Comments GLUCOMETER (test 331 mg/dL 70-100 H DAILY MAINT ENANCEMeter code = GMG) ID: [id number] perator: 9924 OFELIA Angelo ICKERSON GLUCOMETER GLUCOSE- LAB USE [id number] 08:40:00 Test Item Value Reference Range Interpretation Comments GLUCOMETER (test code 350 mg/dL 70-100 H Meter ID: = GMG) [id number] tor: 3103 MAYRA MOYA COMPREHENSIVE METABOLIC LARA [...] 31A) 18 IU/L <=78 CBC (INCLUDES AUTOMATED DIFFERENTIAL)*[id number] 05:50:00 Test Item Value Reference Range Interpretation [...] = NORMAL WRBCMOR) GLUCOMETER GLUCOSE- LAB USE [id number] 03:06:00 Test Item Value Reference Range Interpretation Comments GLUCOMETER (test code 497 mg/dL 70-100 HH Meter ID: = GMG) [id number] tor: 3[address] [facility] GLUCOMETER GLUCOSE- LAB USE [id number] 00:19:00 Test Item Value Reference Range Interpretation Comments GLUCOMETER (test code 515 mg/dL 70-100 HH Meter ID: = GMG) [id number] tor: 3103 [facility]- [facility] USE [id number] 22:09:00 Test Item Value Reference Range Interpretation Comments GLUCOMETER (test code = 591 mg/dL 70-100 HH Mete r ID: GMG) [id number] tor: 9550 MARVIN DAVIES URINALYSIS WITH MICRO [...] 31A) 17 IU/L <=78 CBC (INCLUDES AUTOMATED DIFFERENTIAL)*[id number] 19:52:00 Test Item Value Reference Range Interpretation [...] XR FOOT LEFT COMPLETE 3 VIEWS*WW*2019-08-11 19:20:34LOCATION: [id number]: 34-year-old male who presents with a nonhealing [...] see above comments for more details.POC Glucose, [id number] 07:22:00 Test Item Value Reference Range Interpretation Comments POC Glucose (test 161 mg/dL 70-115 H Notify RN or MDIf you code = POCGLUC) consider you r patient critically ill, the Danial Accu-Chek InformII metershould not be used for Glucose determinations. Draw a venous Glucose and send to the Main Lab for Analysis. Comprehensive Metabolic [id number] 07:08:00 Test Item Value Reference Range Interpretation [...] [employer],http :[email or web address] ep.nih.gov CBC with [id number] 06:48:00 Test Item Value Reference Range Interpretation [...] code = ALYMPH) 4.5 K/cumm 0.5-4.6 N Murray Abs (test code = AMONO) 0.6 K/cumm 0.0-1.2 N Eos Abs (test code = AEOS) 0.18 K/cumm 0.00-0.74 N Baso Abs (test code = ABASO) 0.1 K/cumm 0.00-0.21 N Microcytosis (test code = MICRO) Slight Hypochromic (test code = HYPO) Slight POC Glucose, [id number] 19:07:00 Test Item Value Reference Range Interpretation Comments POC Glucose (test 227 mg/dL 70-115 H If you con tub washer your code = POCGLUC) patient crit ically ill, the Danial Accu- Chek InformII meters hould not be used for Glu cose determinations. Draw a venous Glucose and send to the Main Lab for Analysis. POC Glucose, [id number] 16:11:00 Test Item Value Reference Range Interpretation Comments POC Glucose (test 266 mg/dL 70-115 H If you con tub washer your code = POCGLUC) patient crit ically ill, the Danial Accu- Chek InformII meters hould not be used for Glu cose determinations. Draw a venous Glucose and send to the Main Lab for Analysis. POC Glucose, [id number] 11:36:00 Test Item Value Reference Range Interpretation Comments POC Glucose (test 69 mg/dL 70-115 L If you con tub washer your code = POCGLUC) patient crit ically ill, the Danial Accu- Chek InformII meters hould not be used for Glu cose determinations. Draw a venous Glucose and send to the Main Lab for Analysis. POC Glucose, [id number] 07:45:00 Test Item Value Reference Range Interpretation Comments POC Glucose (test 234 mg/dL 70-115 H If you con tub washer your code = POCGLUC) patient crit ically ill, the Danial Accu- Chek InformII meters hould not be used for Glu cose determinations. Draw a venous Glucose and send to the Main Lab for Analysis. POC Glucose, [id number] 19:15:00 Test Item Value Reference Range Interpretation Comments POC Glucose (test 148 mg/dL 70-115 H If you con tub washer your code = POCGLUC) patient crit ically ill, the Danial Accu- Chek InformII meters hould not be used for Glu cose determinations. Draw a venous Glucose and send to the Main Lab for Analysis. POC Glucose, [id number] 15:37:00 Test Item Value Reference Range Interpretation Comments POC Glucose (test 133 mg/dL 70-115 H If you con tub washer your code = POCGLUC) patient crit ically ill, the Danial Accu- Chek InformII meters hould not be used for Glu cose determinations. Draw a venous Glucose and send to the Main Lab for Analysis. POC Glucose, [id number] 11:10:00 Test Item Value Reference Range Interpretation Comments POC Glucose (test 203 mg/dL 70-115 H Notify RN or MDIf you code = POCGLUC) consider you r patient critically ill, the Danial Accu-Chek InformII metershould not be used for Glucose determinations. Draw a venous Glucose and send to the Main Lab for Analysis. POC Glucose, [id number] 07:29:00 Test Item Value Reference Range Interpretation Comments POC Glucose (test 261 mg/dL 70-115 H Notify RN or MDIf you code = POCGLUC) consider you r patient critically ill, the Danial Accu-Chek InformII metershould not be used for Glucose determinations. Draw a venous Glucose and send to the Main Lab for Analysis. POC Glucose, [id number] 19:32:00 Test Item Value Reference Range Interpretation Comments POC Glucose (test 226 mg/dL 70-115 H If you con tub washer your code = POCGLUC) patient crit ically ill, the Danial Accu- Chek InformII meters hould not be used for Glu cose determinations. Draw a venous Glucose and send to the Main Lab for Analysis. POC Glucose, [id number] 15:58:00 Test Item Value Reference Range Interpretation Comments POC Glucose (test 138 mg/dL 70-115 H Notify RN or MDIf you code = POCGLUC) consider you r patient critically ill, the [place] Accu-Chek InformII metershould not be used for Glucose determinations. Draw a venous Glucose and send to the Main Lab for Analysis. POC Glucose, [id number] 11:48:00 Test Item Value Reference Range Interpretation Comments POC Glucose (test 154 mg/dL 70-115 H Notify RN or MDIf you code = POCGLUC) consider you r patient critically ill, the [place] Accu-Chek InformII metershould not be used for Glucose determinations. Draw a venous Glucose and send to the Main Lab for Analysis. POC Glucose, [id number] 07:23:00 Test Item Value Reference Range Interpretation Comments POC Glucose (test 131 mg/dL 70-115 H Notify RN or MDIf you code = POCGLUC) consider you r patient critically ill, the [place] Accu-Chek InformII metershould not be used for Glucose determinations. Draw a venous Glucose and send to the Main Lab for Analysis. POC Glucose, [id number] 19:38:00 Test Item Value Reference Range Interpretation Comments POC Glucose (test 160 mg/dL 70-115 H If you con tub washer your code = POCGLUC) patient crit ically ill, the [place] Accu- Chek InformII meters hould not be used for Glu cose determinations. Draw a venous Glucose and send to the Main Lab for Analysis. POC Glucose, [id number] 17:27:00 Test Item Value Reference Range Interpretation Comments POC Glucose (test 191 mg/dL 70-115 H If you con tub washer your code = POCGLUC) patient crit ically ill, the [place] Accu- Chek InformII meters hould not be used for Glu cose determinations. Draw a venous Glucose and send to the Main Lab for Analysis. POC Glucose, [id number] 14:19:00 Test Item Value Reference Range Interpretation Comments POC Glucose (test 252 mg/dL 70-115 H If you con tub washer your code = POCGLUC) patient crit ically ill, the [place] Accu- Chek InformII meters hould not be used for Glu cose determinations. Draw a venous Glucose and send to the Main Lab for Analysis. POC Glucose, [id number] 11:41:00 Test Item Value Reference Range Interpretation Comments POC Glucose (test 114 mg/dL 70-115 N If you con tub washer your code = POCGLUC) patient crit ically ill, the [place] Accu- Chek InformII meters hould not be used for Glu cose determinations. Draw a venous Glucose and send to the Main Lab for Analysis. POC Glucose, [id number] 05:58:00 Test Item Value Reference Range Interpretation Comments POC Glucose (test 347 mg/dL 70-115 H If you con tub washer your code = POCGLUC) patient crit ically ill, the [place] Accu- Chek InformII meters hould not be used for Glu cose determinations. Draw a venous Glucose and send to the Main Lab for Analysis. POC Glucose, [id number] 19:27:00 Test Item Value Reference Range Interpretation Comments POC Glucose (test 334 mg/dL 70-115 H Notify RN or MDIf you code = POCGLUC) consider you r patient critically ill, the [place] Accu-Chek InformII metershould not be used for Glucose determinations. Draw a venous Glucose and send to the Main Lab for Analysis. POC Glucose, [id number] 15:02:00 Test Item Value Reference Range Interpretation Comments POC Glucose (test 72 mg/dL 70-115 N If you con tub washer your code = POCGLUC) patient crit ically ill, the [place] Accu- Chek InformII meters hould not be used for Glu cose determinations. Draw a venous Glucose and send to the Main Lab for Analysis. POC Glucose, [id number] 12:14:00 Test Item Value Reference Range Interpretation Comments POC Glucose (test 110 mg/dL 70-115 N If you con tub washer your code = POCGLUC) patient crit ically ill, the [place] Accu- Chek InformII meters hould not be used for Glu cose determinations. Draw a venous Glucose and send to the Main Lab for Analysis. POC Glucose, [id number] 06:03:00 Test Item Value Reference Range Interpretation Comments POC Glucose (test 224 mg/dL 70-115 H If you con tub washer your code = POCGLUC) patient crit ically ill, the [place] Accu- Chek InformII meters hould not be used for Glu cose determinations. Draw a venous Glucose and send to the Main Lab for Analysis. POC Glucose, [id number] 19:29:00 Test Item Value Reference Range Interpretation Comments POC Glucose (test 300 mg/dL 70-115 H Notify RN or MDIf you code = POCGLUC) consider you r patient critically ill, the [place] Accu-Chek InformII metershould not be used for Glucose determinations. Draw a venous Glucose and send to the Main Lab for Analysis. POC Glucose, [id number] 16:00:00 Test Item Value Reference Range Interpretation Comments POC Glucose (test 283 mg/dL 70-115 H Notify RN or MDIf you code = POCGLUC) consider you r patient critically ill, the [place] Accu-Chek InformII metershould not be used for Glucose determinations. Draw a venous Glucose and send to the Main Lab for Analysis. RPR, [id number] 14:24:00 Test Item Value Reference Range Interpretation Comments RPR (test code = RPR) Non-Reactive Non-Reactive N POC Glucose, [id number] 11:09:00 Test Item Value Reference Range Interpretation [...] = TSH) 2.05 mIU/mL 0.270-4.200 N Lipid [id number] 08:56:00 Test Item Value Reference Range Interpretation Comments Cholesterol (test 215 mg/dL 0-200 H code = CHOL) Triglycerides (test 370 mg/dL 9-200 H code = TRIG) HDL (test code = 33 mg/dL 40-60 L HDL) Chol/HDL (test code 6.5 Ratio 0.0-5.0 H = CHOLPHDL) LDL, Calculated 108 0-130 N (NOTE)RISK O F HEART (test code = LDLC) DISEASEPu blished by [place] Heart AssociationAnal yte Optim al Boderline Increased RiskC HOL <200 200-239 >240TRI G <150 150-199 >200HDL Male: >60 <40HDL Female: >60 <50 LDL < 100 130-15 9 >160 LDL NEAR OPTIMAL IS 100- 129 VLDL (test code = 74 mg/dL 5-40 H VLDL) LDL/HDL (test code = 3 LDLPHDL) POC Glucose, [id number] 05:44:00 Test Item Value Reference Range Interpretation Comments POC Glucose (test 229 mg/dL 70-115 H Notify RN or MDIf you code = POCGLUC) consider you r patient critically ill, the [place] Accu-Chek InformII metershould not be used for Glucose determinations. Draw a venous Glucose and send to the Main Lab for Analysis. POC Glucose, [id number] 11:20:00 Test Item Value Reference Range Interpretation Comments POC Glucose (test 160 mg/dL 70-115 H If you con tub washer your code = POCGLUC) patient crit ically ill, the [place] Accu- Chek InformII meters hould not be used for Glu cose determinations. Draw a venous Glucose and send to the Main Lab for Analysis. POC Glucose, [id number] 07:41:00 Test Item Value Reference Range Interpretation Comments POC Glucose (test 121 mg/dL 70-115 H If you con tub washer your code = POCGLUC) patient crit ically ill, the [place] Accu- Chek InformII meters hould not be used for Glu cose determinations. Draw a venous Glucose and send to the Main Lab for Analysis. POC Glucose, [id number] 21:24:00 Test Item Value Reference Range Interpretation Comments POC Glucose (test 108 mg/dL 70-115 N If you con tub washer your code = POCGLUC) patient crit ically ill, the [place] Accu- Chek InformII meters hould not be used for Glu cose determinations. Draw a venous Glucose and send to the Main Lab for Analysis. POC Glucose, [id number] 15:55:00 Test Item Value Reference Range Interpretation Comments POC Glucose (test 160 mg/dL 70-115 H Notify RN or MDIf you code = POCGLUC) consider you r patient critically ill, the [place] Accu-Chek InformII metershould not be used for Glucose determinations. Draw a venous Glucose and send to the Main Lab for Analysis. POC Glucose, [id number] 11:21:00 Test Item Value Reference Range Interpretation Comments POC Glucose (test 111 mg/dL 70-115 N If you con tub washer your code = POCGLUC) patient crit ically ill, the [place] Accu- Chek InformII meters hould not be used for Glu cose determinations. Draw a venous Glucose and send to the Main Lab for Analysis. POC Glucose, [id number] 08:06:00 Test Item Value Reference Range Interpretation Comments POC Glucose (test 135 mg/dL 70-115 H If you con tub washer your code = POCGLUC) patient crit ically ill, the [place] Accu- Chek InformII meters hould not be used for Glu cose determinations. Draw a venous Glucose and send to the Main Lab for Analysis. POC Glucose, [id number] 22:43:00 Test Item Value Reference Range Interpretation Comments POC Glucose (test 106 mg/dL 70-115 N If you con tub washer your code = POCGLUC) patient crit ically ill, the [place] Accu- Chek InformII meters hould not be used for Glu cose determinations. Draw a venous Glucose and send to the Main Lab for Analysis. POC Glucose, [id number] 16:42:00 Test Item Value Reference Range Interpretation Comments POC Glucose (test 96 mg/dL 70-115 N If you con tub washer your code = POCGLUC) patient crit ically ill, the [place] Accu- Chek InformII meters hould not be used for Glu cose determinations. Draw a venous Glucose and send to the Main Lab for Analysis. POC Glucose, [id number] 11:10:00 Test Item Value Reference Range Interpretation Comments POC Glucose (test 149 mg/dL 70-115 H Notify RN or MDIf you code = POCGLUC) consider you r patient critically ill, the [place] Accu-Chek InformII metershould not be used for Glucose determinations. Draw a venous Glucose and send to the Main Lab for Analysis. POC Glucose, [id number] 07:26:00 Test Item Value Reference Range Interpretation Comments POC Glucose (test 124 mg/dL 70-115 H If you con tub washer your code = POCGLUC) patient crit ically ill, the [place] Accu- Chek InformII meters hould not be used for Glu cose determinations. Draw a venous Glucose and send to the Main Lab for Analysis. POC Glucose, [id number] 21:16:00 Test Item Value Reference Range Interpretation Comments POC Glucose (test 164 mg/dL 70-115 H Notify RN or MDIf you code = POCGLUC) consider you r patient critically ill, the [place] Accu-Chek InformII metershould not be used for Glucose determinations. Draw a venous Glucose and send to the Main Lab for Analysis. POC Glucose, [id number] 16:34:00 Test Item Value Reference Range Interpretation Comments POC Glucose (test 100 mg/dL 70-115 N If you con tub washer your code = POCGLUC) patient crit ically ill, the [place] Accu- Chek InformII meters hould not be used for Glu cose determinations. Draw a venous Glucose and send to the Main Lab for Analysis. POC Glucose, [id number] 11:06:00 Test Item Value Reference Range Interpretation Comments POC Glucose (test 120 mg/dL 70-115 H If you con tub washer your code = POCGLUC) patient crit ically ill, the [place] Accu- Chek InformII meters hould not be used for Glu cose determinations. Draw a venous Glucose and send to the Main Lab for Analysis. POC Glucose, [id number] 07:30:00 Test Item Value Reference Range Interpretation Comments POC Glucose (test 80 mg/dL 70-115 N If you con tub washer your code = POCGLUC) patient crit ically ill, the [place] Accu- Chek InformII meters hould not be used for Glu cose determinations. Draw a venous Glucose and send to the Main Lab for Analysis. POC Glucose, [id number] 21:17:00 Test Item Value Reference Range Interpretation Comments POC Glucose (test 175 mg/dL 70-115 H Notify RN or MDIf you code = POCGLUC) consider you r patient critically ill, the [place] Accu-Chek InformII metershould not be used for Glucose determinations. Draw a venous Glucose and send to the Main Lab for Analysis. POC Glucose, [id number] 17:46:00 Test Item Value Reference Range Interpretation Comments POC Glucose (test 128 mg/dL 70-115 H If you con tub washer your code = POCGLUC) patient crit ically ill, the [place] Accu- Chek InformII meters hould not be used for Glu cose determinations. Draw a venous Glucose and send to the Main Lab for Analysis. POC Glucose, [id number] 11:35:00 Test Item Value Reference Range Interpretation Comments POC Glucose (test 134 mg/dL 70-115 H If you con tub washer your code = POCGLUC) patient crit ically ill, the [place] Accu- Chek InformII meters hould not be used for Glu cose determinations. Draw a venous Glucose and send to the Main Lab for Analysis. POC Glucose, [id number] 08:10:00 Test Item Value Reference Range Interpretation Comments POC Glucose (test 220 mg/dL 70-115 H If you con tub washer your code = POCGLUC) patient crit ically ill, the [place] Accu- Chek InformII meters hould not be used for Glu cose determinations. Draw a venous Glucose and send to the Main Lab for Analysis. Comprehensive Metabolic [id number] 06:52:00 Test Item Value Reference Range Interpretation [...] National Kidney Foundation,http ://nkd ep.nih.gov CBC with [id number] 06:34:00 Test Item Value Reference Range Interpretation [...] code = ALYMPH) 2.4 K/cumm 0.5-4.6 N [place] Abs (test code = AMONO) 0.7 K/cumm 0.0-1.2 N Eos Abs (test code = AEOS) 0.19 K/cumm 0.00-0.74 N Baso Abs (test code = ABASO) 0.1 K/cumm 0.00-0.21 N Microcytosis (test code = MICRO) Slight POC Glucose, [id number] 20:28:00 Test Item Value Reference Range Interpretation Comments POC Glucose (test 211 mg/dL 70-115 H If you con tub washer your code = POCGLUC) patient crit ically ill, the [place] Accu- Chek InformII meters hould not be used for Glu cose determinations. Draw a venous Glucose and send to the Main Lab for Analysis. POC Glucose, [id number] 17:09:00 Test Item Value Reference Range Interpretation Comments POC Glucose (test 146 mg/dL 70-115 H If you con tub washer your code = POCGLUC) patient crit ically ill, the [place] Accu- Chek InformII meters hould not be used for Glu cose determinations. Draw a venous Glucose and send to the Main Lab for Analysis. POC Glucose, [id number] 11:53:00 Test Item Value Reference Range Interpretation Comments POC Glucose (test 136 mg/dL 70-115 H If you con tub washer your code = POCGLUC) patient crit ically ill, the [place] Accu- Chek InformII meters hould not be used for Glu cose determinations. Draw a venous Glucose and send to the Main Lab for Analysis. POC Glucose, [id number] 07:57:00 Test Item Value Reference Range Interpretation Comments POC Glucose (test 143 mg/dL 70-115 H If you con tub washer your code = POCGLUC) patient crit ically ill, the [place] Accu- Chek InformII meters hould not be used for Glu cose determinations. Draw a venous Glucose and send to the Main Lab for Analysis. POC Glucose, [id number] 20:38:00 Test Item Value Reference Range Interpretation Comments POC Glucose (test 152 mg/dL 70-115 H Notify RN or MDIf you code = POCGLUC) consider you r patient critically ill, the [place] Accu-Chek InformII metershould not be used for Glucose determinations. Draw a venous Glucose and send to the Main Lab for Analysis. POC Glucose, [id number] 16:49:00 Test Item Value Reference Range Interpretation Comments POC Glucose (test 171 mg/dL 70-115 H Notify RN or MDIf you code = POCGLUC) consider you r patient critically ill, the [place] Accu-Chek InformII metershould not be used for Glucose determinations. Draw a venous Glucose and send to the Main Lab for Analysis. POC Glucose, [id number] 11:10:00 Test Item Value Reference Range Interpretation Comments POC Glucose (test 160 mg/dL 70-115 H Notify RN or MDIf you code = POCGLUC) consider you r patient critically ill, the [place] Accu-Chek InformII metershould not be used for Glucose determinations. Draw a venous Glucose and send to the Main Lab for Analysis. POC Glucose, [id number] 07:36:00 Test Item Value Reference Range Interpretation Comments POC Glucose (test 126 mg/dL 70-115 H If you con tub washer your code = POCGLUC) patient crit ically ill, the [place] Accu- Chek InformII meters hould not be used for Glu cose determinations. Draw a venous Glucose and send to the Main Lab for Analysis. POC Glucose, [id number] 20:51:00 Test Item Value Reference Range Interpretation Comments POC Glucose (test 165 mg/dL 70-115 H Notify RN or MDIf you code = POCGLUC) consider you r patient critically ill, the [place] Accu-Chek InformII metershould not be used for Glucose determinations. Draw a venous Glucose and send to the Main Lab for Analysis. POC Glucose, [id number] 16:42:00 Test Item Value Reference Range Interpretation Comments POC Glucose (test 133 mg/dL 70-115 H If you con tub washer your code = POCGLUC) patient crit ically ill, the [place] Accu- Chek InformII meters hould not be used for Glu cose determinations. Draw a venous Glucose and send to the Main Lab for Analysis. POC Glucose, [id number] 11:19:00 Test Item Value Reference Range Interpretation Comments POC Glucose (test 250 mg/dL 70-115 H Notify RN or MDIf you code = POCGLUC) consider you r patient critically ill, the [place] Accu-Chek InformII metershould not be used for Glucose determinations. Draw a venous Glucose and send to the Main Lab for Analysis. Culture, [id number] 08:19:00Specimen: UrineCollected: 07/10/2017 12:47 Status: Final Last [...] the Main Lab for Analysis. POC Glucose, [id number] 20:55:00 Test Item Value Reference Range Interpretation Comments POC Glucose (test 140 mg/dL 70-115 H If you con tub washer your code = POCGLUC) patient crit ically ill, the [place] Accu- Chek InformII meters hould not be used for Glu cose determinations. Draw a venous Glucose and send to the Main Lab for Analysis. POC Glucose, [id number] 16:13:00 Test Item Value Reference Range Interpretation Comments POC Glucose (test 151 mg/dL 70-115 H Notify RN or MDIf you code = POCGLUC) consider you r patient critically ill, the [place] Accu-Chek InformII metershould not be used for Glucose determinations. Draw a venous Glucose and send to the Main Lab for Analysis. POC Glucose, [id number] 11:43:00 Test Item Value Reference Range Interpretation Comments POC Glucose (test 170 mg/dL 70-115 H Notify RN or MDIf you code = POCGLUC) consider you r patient critically ill, the [place] Accu-Chek InformII metershould not be used for Glucose determinations. Draw a venous Glucose and send to the Main Lab for Analysis. POC Glucose, [id number] 07:23:00 Test Item Value Reference Range Interpretation Comments POC Glucose (test 207 mg/dL 70-115 H Notify RN or MDIf you code = POCGLUC) consider you r patient critically ill, the [place] Accu-Chek InformII metershould not be used for Glucose determinations. Draw a venous Glucose and send to the Main Lab for Analysis. POC Glucose, [id number] 20:24:00 Test Item Value Reference Range Interpretation Comments POC Glucose (test 208 mg/dL 70-115 H If you con tub washer your code = POCGLUC) patient crit ically ill, the [place] Accu- Chek InformII meters hould not be used for Glu cose determinations. Draw a venous Glucose and send to the Main Lab for Analysis. POC Glucose, [id number] 17:14:00 Test Item Value Reference Range Interpretation Comments POC Glucose (test 158 mg/dL 70-115 H If you con tub washer your code = POCGLUC) patient crit ically ill, the [place] Accu- Chek InformII meters hould not be used for Glu cose determinations. Draw a venous Glucose and send to the Main Lab for Analysis. Urinalysis [id number] 13:04:00 Test Item Value Reference Range Interpretation Comments Color (test code = COLOR) Straw Yellow,Straw,Pl N yellow Clarity (test code = Clear Clear N CLAR) Specific [place] (test 1.010 1.001-1.035 N code = SPGR) [...] code = Not indicated MEXAM) POC Glucose, [id number] 11:48:00 Test Item Value Reference Range Interpretation Comments POC Glucose (test 135 mg/dL 70-115 H If you con tub washer your code = POCGLUC) patient crit ically ill, the [place] Accu- Chek InformII meters hould not be used for Glu cose determinations. Draw a venous Glucose and send to the Main Lab for Analysis. POC Glucose, [id number] 07:47:00 Test Item Value Reference Range Interpretation Comments POC Glucose (test 173 mg/dL 70-115 H If you con tub washer your code = POCGLUC) patient crit ically ill, the [place] Accu- Chek InformII meters hould not be used for Glu cose determinations. Draw a venous Glucose and send to the Main Lab for Analysis. Basic Metabolic [id number] 05:18:00 Test Item Value Reference Range Interpretation [...] National Kidney Foundation,http ://nkd ep.nih.gov CBC with [id number] 04:59:00 Test Item Value Reference Range Interpretation [...] code = ALYMPH) 2.7 K/cumm 0.5-4.6 N [place] Abs (test code = AMONO) 0.8 K/cumm 0.0-1.2 N Eos Abs (test code = AEOS) 0.26 K/cumm 0.00-0.74 N Baso Abs (test code = ABASO) 0.0 K/cumm 0.00-0.21 N POC Glucose, [id number] 20:59:00 Test Item Value Reference Range Interpretation Comments POC Glucose (test 199 mg/dL 70-115 H Notify RN or MDIf you code = POCGLUC) consider you r patient critically ill, the [place] Accu-Chek InformII metershould not be used for Glucose determinations. Draw a venous Glucose and send to the Main Lab for Analysis. POC Glucose, [id number] 16:26:00 Test Item Value Reference Range Interpretation Comments POC Glucose (test 170 mg/dL 70-115 H Notify RN or MDIf you code = POCGLUC) consider you r patient critically ill, the [place] Accu-Chek InformII metershould not be used for Glucose determinations. Draw a venous Glucose and send to the Main Lab for Analysis. POC Glucose, [id number] 11:41:00 Test Item Value Reference Range Interpretation Comments POC Glucose (test 246 mg/dL 70-115 H If you con tub washer your code = POCGLUC) patient crit shira moyer, the [place] Accu- Chek InformII meters hould not be used for Glu cose determinations. Draw a venous Glucose and send to the Main Lab for Analysis. Glycosylated [id number] 07:39:00 Test Item Value Reference Range Interpretation Comments HBA1c (test code = HBA1C) 9.1 % 4.8-5.9 H POC Glucose, [id number] 07:36:00 Test Item Value Reference Range Interpretation Comments POC Glucose (test 206 mg/dL 70-115 H If you con tub washer your code = POCGLUC) patient crit shira moyer, the [place] Accu- Chek InformII meters hould not be used for Glu cose determinations. Draw a venous Glucose and send to the Main Lab for Analysis. CBC with [id number] 06:09:00 Test Item Value Reference Range Interpretation [...] code = ALYMPH) 3.5 K/cumm 0.5-4.6 N [place] Abs (test code = AMONO) 1.0 K/cumm 0.0-1.2 N Eos Abs (test code = AEOS) 0.19 K/cumm 0.00-0.74 N Baso Abs (test code = ABASO) 0.1 K/cumm 0.00-0.21 N Microcytosis (test code = MICRO) Slight Comprehensive Metabolic [id number] 06:00:00 Test Item Value Reference Range Interpretation [...] the National Kidney Foundation,http ://nkd ep.nih.gov Magnesium, [id number] 06:00:00 Test Item Value Reference Range Interpretation Comments Magnesium (test code = MG) 2.2 mg/dL 1.7-2.5 N [id number] 06:00:00 Test Item Value Reference Range Interpretation Comments Phosphorus (test code = PO4) 2.8 mg/dL 2.70-4.50 N POC Glucose, [id number] 20:44:00 Test Item Value Reference Range Interpretation Comments POC Glucose (test 199 mg/dL 70-115 H If you con tub washer your code = POCGLUC) patient crit ically ill, the [place] Accu- Chek InformII meters hould not be used for Glu cose determinations. Draw a venous Glucose and send to the Main Lab for Analysis. POC Glucose, [id number] 16:28:00 Test Item Value Reference Range Interpretation Comments POC Glucose (test 242 mg/dL 70-115 H Notify RN or MDIf you code = POCGLUC) consider you r patient critically ill, the [place] Accu-Chek InformII metershould not be used for Glucose determinations. Draw a venous Glucose and send to the Main Lab for Analysis. POC Glucose, [id number] 13:37:00 Test Item Value Reference Range Interpretation Comments POC Glucose (test 131 mg/dL 70-115 H If you con tub washer your code = POCGLUC) patient crit ically ill, the [place] Accu- Chek InformII meters hould not be used for Glu cose determinations. Draw a venous Glucose and send to the Main Lab for Analysis. POC Glucose, [id number] 12:14:00 Test Item Value Reference Range Interpretation Comments POC Glucose (test 100 mg/dL 70-115 N If you con tub washer your code = POCGLUC) patient crit ically ill, the [place] Accu- Chek InformII meters hould not be used for Glu cose determinations. Draw a venous Glucose and send to the Main Lab for Analysis. POC Glucose, [id number] 07:30:00 Test Item Value Reference Range Interpretation Comments POC Glucose (test 123 mg/dL 70-115 H If you con tub washer your code = POCGLUC) patient crit ically ill, the [place] Accu- Chek InformII meters hould not be used for Glu cose determinations. Draw a venous Glucose and send to the Main Lab for Analysis. Basic Metabolic [id number] 06:05:00 Test Item Value Reference Range Interpretation [...] National Kidney Foundation,http ://nkd ep.nih.gov CBC with [id number] 05:44:00 Test Item Value Reference Range Interpretation [...] code = ALYMPH) 4.8 K/cumm 0.5-4.6 H Murray Abs (test code = AMONO) 0.8 K/cumm 0.0-1.2 N Eos Abs (test code = AEOS) 0.34 K/cumm 0.00-0.74 N Baso Abs (test code = ABASO) 0.1 K/cumm 0.00-0.21 N POC Glucose, [id number] 20:29:00 Test Item Value Reference Range Interpretation Comments POC Glucose (test 152 mg/dL 70-115 H If you con tub washer your code = POCGLUC) patient crit ically ill, the [place] Accu- Chek InformII meters hould not be used for Glu cose determinations. Draw a venous Glucose and send to the Main Lab for Analysis. Antibody Screen - [id number] 17:58:00 Test Item Value Reference Range Interpretation Comments Antibody Screen (test code = ABSCR) Negative Blood Type and [id number] 17:44:00 Test Item Value Reference Range Interpretation Comments ABO type (test code = ABO) A Rh Type (test code = RH) Positive POC Glucose, [id number] 16:09:00 Test Item Value Reference Range Interpretation Comments POC Glucose (test 192 mg/dL 70-115 H If you con tub washer your code = POCGLUC) patient crit ically ill, the [place] Accu- Chek InformII meters hould not be used for Glu cose determinations. Draw a venous Glucose and send to the Main Lab for Analysis. POC Glucose, [id number] 12:11:00 Test Item Value Reference Range Interpretation Comments POC Glucose (test 249 mg/dL 70-115 H If you con tub washer your code = POCGLUC) patient crit ically ill, the [place] Accu- Chek InformII meters hould not be used for Glu cose determinations. Draw a venous Glucose and send to the Main Lab for Analysis. MRI LWR EXTRM NON-JNT WO [id number] 09:25:10LOCATION: [id number]: MRI LWR EXTRM NON-JNT WO CONTRST-LEFTINDICATION: LEFT [...] concerning for injury.US DUPLX LWR EXT ART/BPG, [id number] 08:50:53US DUPLX LWR EXT ART/BPG, BILATCLINICAL HISTORY: non-healing woundsTechnique: Grayscale, color, and spectral sonography of the bilateral lower extremity arteries was performed.FINDINGS:Right leg (waveform / peak systolic velocity)ANALYST PROGRAMMER: Triphasic 95 cm/secProx SFA: Triphasic 92 cm/secMid SFA: Triphasic 81 cm/secDistal SFA: Triphasic 83 cm/secPopliteal: Triphasic 84 cm/secPTA: Monophasic 93 cm/secATA: Triphasic 32 cm/secDPA: Not imaged/bandaging Left leg (waveform / peak systolic velocity)ANALYST PROGRAMMER: Triphasic 88 cm/secProx SFA: Triphasic 93 cm/secMid SFA: Triphasic 82 cm/secDistal SFA: Triphasic 49 cm/secPopliteal: Triphasic 60 cm/secPTA: Triphasic 73 cm/secATA: Triphasic 93 cm/secDPA: Not imaged/bandaging IMPRESSION: 1. Limited exam. Thedorsalis pedis arteries are not imaged.2. Abnormal monophasic waveform in the right posterior tibial artery.3. Otherwise unremarkable exam.Location: R16 CBC with [id number] 08:22:00 Test Item Value Reference Range Interpretation [...] code = ALYMPH) 3.6 K/cumm 0.5-4.6 N Murray Abs (test code = AMONO) 0.6 K/cumm 0.0-1.2 N Eos Abs (test code = AEOS) 0.37 K/cumm 0.00-0.74 N Baso Abs (test code = ABASO) 0.1 K/cumm 0.00-0.21 N Basic Metabolic [id number] 08:03:00 Test Item Value Reference Range Interpretation [...] National Kidney Foundation,http ://nkd ep.nih.gov POC Glucose, [id number] 07:30:00 Test Item Value Reference Range Interpretation Comments POC Glucose (test 110 mg/dL 70-115 N If you con tub washer your code = POCGLUC) patient crit ically ill, the [place] Accu- Chek InformII meters hould not be used for Glu cose determinations. Draw a venous Glucose and send to the Main Lab for Analysis. POC Glucose, [id number] 19:57:00 Test Item Value Reference Range Interpretation Comments POC Glucose (test 124 mg/dL 70-115 H If you con tub washer your code = POCGLUC) patient crit ically ill, the [place] Accu- Chek InformII meters hould not be used for Glu cose determinations. Draw a venous Glucose and send to the Main Lab for Analysis. POC Glucose, [id number] 16:10:00 Test Item Value Reference Range Interpretation Comments POC Glucose (test 114 mg/dL 70-115 N Notify RN or MDIf you code = POCGLUC) consider you r patient critically ill, the [place] Accu-Chek InformII metershould not be used for Glucose determinations. Draw a venous Glucose and send to the Main Lab for Analysis. POC Glucose, [id number] 11:18:00 Test Item Value Reference Range Interpretation Comments POC Glucose (test 203 mg/dL 70-115 H Notify RN or MDIf you code = POCGLUC) consider you r patient critically ill, the [place] Accu-Chek InformII metershould not be used for Glucose determinations. Draw a venous Glucose and send to the Main Lab for Analysis. Culture, Wound [id number] 09:58:00Specimen: FootCollected: 07/03/2017 17:00 Status: Final Last [...] Streptococcus Beta Hemolytic Streptococcus Group GPOC Glucose, [id number] 07:23:00 Test Item Value Reference Range Interpretation Comments POC Glucose (test 197 mg/dL 70-115 H Notify RN or MDIf you code = POCGLUC) consider you r patient critically ill, the [place] Accu-Chek InformII metershould not be used for Glucose determinations. Draw a venous Glucose and send to the Main Lab for Analysis. POC Glucose, [id number] 16:09:00 Test Item Value Reference Range Interpretation Comments POC Glucose (test 194 mg/dL 70-115 H If you con tub washer your code = POCGLUC) patient crit ically ill, the [place] Accu- Chek InformII meters hould not be used for Glu cose determinations. Draw a venous Glucose and send to the Main Lab for Analysis. POC Glucose, [id number] 11:33:00 Test Item Value Reference Range Interpretation Comments POC Glucose (test 193 mg/dL 70-115 H If you con tub washer your code = POCGLUC) patient crit ically ill, the [place] Accu- Chek InformII meters hould not be used for Glu cose determinations. Draw a venous Glucose and send to the Main Lab for Analysis. MRI LWR EXTRM NON-JNT WO [id number] 08:18:56EXAM: MRI right foot without contrastLocation: [id number]: History of amputation, rule out osteomy elitisCOMPARISON: [...] 140 mg/dL 70-115 H If you con tub washer your code = POCGLUC) patient crit ically ill, the [place] Accu- Chek InformII meters hould not be used for Glu cose determinations. Draw a venous Glucose and send to the Main Lab for Analysis. Sed Rate ESR ([place])2017-07-05 06:40:00 Test Item Value Reference Range Interpretation Comments ESR (test code = HESR) 54 mm/Hr 0-9 H C-Reactive Protein, [id number] 05:41:00 Test Item Value Reference Range Interpretation Comments CRP (test code = CRP) 34.7 mg/L 0.0-5.0 H POC Glucose, [id number] 21:22:00 Test Item Value Reference Range Interpretation Comments POC Glucose (test 141 mg/dL 70-115 H If you con tub washer your code = POCGLUC) patient crit ically ill, the [place] Accu- Chek InformII meters hould not be used for Glu cose determinations. Draw a venous Glucose and send to the Main Lab for Analysis. POC Glucose, [id number] 16:09:00 Test Item Value Reference Range Interpretation Comments POC Glucose (test 156 mg/dL 70-115 H If you con tub washer your code = POCGLUC) patient crit ically ill, the [place] Accu- Chek InformII meters hould not be used for Glu cose determinations. Draw a venous Glucose and send to the Main Lab for Analysis. POC Glucose, [id number] 12:05:00 Test Item Value Reference Range Interpretation Comments POC Glucose (test 170 mg/dL 70-115 H If you con tub washer your code = POCGLUC) patient crit ically ill, the [place] Accu- Chek InformII meters hould not be used for Glu cose determinations. Draw a venous Glucose and send to the Main Lab for Analysis. XR FOOT [id number] 08:56:55XR FOOT 2V-LEFTLOCATION: [id number]:left foot ulcer COMPARISON: None.DISCUSSION:Frontal and lateral radiographs [...] stump.2. No definite acute osseous abnormalities.XR FOOT [id number] 08:53:30XR FOOT 2V-RIGHTLOCATION: [id number]:right foot stump ulcer COMPARISON: None.DISCUSSION:Frontal and lateral radiographs of the right foot were obtained. Amputation changes at the proximal metatarsals are noted.No definite suspicious focal osseous destruction or periosteal reactionis seen.Otherwise, no acute fracture or dislocation is seen.The joint spaces are grossly preserved.IMPRESSION:1. 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 No definite acute osseous abnormalities.POC Glucose, [id number] 07:50:00 Test Item Value Reference Range Interpretation Comments POC Glucose (test 139 mg/dL 70-115 H If you con tub washer your code = POCGLUC) patient crit ically ill, the [place] Accu- Chek InformII meters hould not be used for Glu cose determinations. Draw a venous Glucose and send to the Main Lab for Analysis. CBC with [id number] 06:19:00 Test Item Value Reference Range Interpretation [...] code = ALYMPH) 2.7 K/cumm 0.5-4.6 N Murray Abs (test code = AMONO) 0.6 K/cumm 0.0-1.2 N Eos Abs (test code = AEOS) 0.32 K/cumm 0.00-0.74 N Baso Abs (test code = ABASO) 0.1 K/cumm 0.00-0.21 N Lipid [id number] 06:15:00 Test Item Value Reference Range Interpretation Comments Cholesterol (test 133 mg/dL 0-200 N code = CHOL) Triglycerides (test 164 mg/dL 9-200 N code = TRIG) HDL (test code = 31 mg/dL 40-60 L HDL) Chol/HDL (test code 4.3 Ratio 0.0-5.0 N = CHOLPHDL) LDL, Calculated 69 0-130 N (NOTE)RISK O F HEART (test code = LDLC) DISEASEPu blished by [place] Heart AssociationAnal yte Optim al Boderline Increased RiskC HOL <200 200-239 >240TRI G <150 150-199 >200HDL Male: >60 <40HDL Female: >60 <50 LDL < 100 130-15 9 >160 LDL NEAR OPTIMAL IS 100- 129 VLDL (test code = 33 mg/dL 5-40 N VLDL) LDL/HDL (test code = 2 LDLPHDL) POC Glucose, [id number] 17:14:00 Test Item Value Reference Range Interpretation Comments POC Glucose (test 129 mg/dL 70-115 H If you con tub washer your code = POCGLUC) patient crit ically ill, the [place] Accu- Chek InformII meters hould not be used for Glu cose determinations. Draw a venous Glucose and send to the Main Lab for Analysis. RPR, [id number] 12:26:00 Test Item Value Reference Range Interpretation Comments RPR (test code = RPR) Non-Reactive Non-Reactive N POC Glucose, [id number] 12:05:00 Test Item Value Reference Range Interpretation Comments POC Glucose (test 173 mg/dL 70-115 H If you con tub washer your code = POCGLUC) patient crit ically ill, the [place] Accu- Chek InformII meters hould not be used for Glu cose determinations. Draw a venous Glucose and send to the Main Lab for Analysis. POC Glucose, [id number] 07:57:00 Test Item Value Reference Range Interpretation Comments POC Glucose (test 144 mg/dL 70-115 H If you con tub washer your code = POCGLUC) patient crit ically ill, the [place] Accu- Chek InformII meters hould not be used for Glu cose determinations. Draw a venous Glucose and send to the Main Lab for Analysis. POC Glucose, [id number] 06:19:00 Test Item Value Reference Range Interpretation [...] = TSH) 2.08 mIU/mL 0.270-4.200 N Lipid [id number] 23:52:00 Test Item Value Reference Range Interpretation Comments Cholesterol (test 171 mg/dL 0-200 N code = CHOL) Triglycerides (test 171 mg/dL 9-200 N code = TRIG) HDL (test code = 37 mg/dL 40-60 L HDL) Chol/HDL (test code 4.6 Ratio 0.0-5.0 N = CHOLPHDL) LDL, Calculated 100 0-130 N (NOTE)RISK O F HEART (test code = LDLC) DISEASEPu blished by [place] Heart AssociationAnal yte Optim al Boderline Increased RiskC HOL <200 200-239 >240TRI G <150 150-199 >200HDL Male: >60 <40HDL Female: >60 <50 LDL < 100 130-15 9 >160 LDL NEAR OPTIMAL IS 100- 129 VLDL (test code = 34 mg/dL 5-40 N VLDL) LDL/HDL (test code = 3 LDLPHDL) POC Glucose, [id number] 20:03:00 Test Item Value Reference Range Interpretation Comments POC Glucose (test 221 mg/dL 70-115 H If you con tub washer your code = POCGLUC) patient crit ically ill, the [place] Accu- Chek InformII meters hould not be used for Glu cose determinations. Draw a venous Glucose and send to the Main Lab for Analysis. POC Glucose, [id number] 16:47:00 Test Item Value Reference Range Interpretation Comments POC Glucose (test 304 mg/dL 70-115 H If you con tub washer your code = POCGLUC) patient crit ically ill, the [place] Accu- Chek InformII meters hould not be used for Glu cose determinations. Draw a venous Glucose and send to the Main Lab for Analysis. POC Glucose, [id number] 15:20:00 Test Item Value Reference Range Interpretation Comments POC Glucose (test 368 mg/dL 70-115 H If you con tub washer your code = POCGLUC) patient crit ically ill, the [place]ial Accu- Chek InformII meters hould not be used for Glu cose determinations. Draw a venous Glucose and send to the Main Lab for Analysis. [id number] 08:27:00 Test Item Value Reference Range Interpretation [...] g/dL 0.00-0.01 N code = ETOHU) Urinalysis [id number] 07:59:00 Test Item Value Reference Range Interpretation Comments Color (test code = COLOR) Yellow Yellow,Straw,Pl N yellow Clarity (test code = Clear Clear N CLAR) Specific [place] (test 1.026 1.001-1.035 N code = SPGR) [...] code = Few /HPF BACT) POC Glucose, [id number] 07:23:00 Test Item Value Reference Range Interpretation Comments POC Glucose (test 174 mg/dL 70-115 H If you con tub washer your code = POCGLUC) patient crit ically ill, the [place] Accu- Chek InformII meters hould not be used for Glu cose determinations. Draw a venous Glucose and send to the Main Lab for Analysis. [id number] 06:52:00 Test Item Value Reference Range Interpretation Comments Acetone [Serum] (test code = Negative Negative N ACETONE) Comprehensive Metabolic [id number] 06:19:00 Test Item Value Reference Range Interpretation [...] National Kidney Foundation,http ://nkd ep.nih.gov CBC with [id number] 06:00:00 Test Item Value Reference Range Interpretation [...] code = ALYMPH) 3.1 K/cumm 0.5-4.6 N Murray Abs (test code = AMONO) 0.9 K/cumm 0.0-1.2 N Eos Abs (test code = AEOS) 0.29 K/cumm 0.00-0.74 N Baso Abs (test code = ABASO) 0.1 K/cumm 0.00-0.21 N POC Glucose, [id number] 05:52:00 Test Item Value Reference Range Interpretation Comments POC Glucose (test 342 mg/dL 70-115 H If you con tub washer your code = POCGLUC) patient crit ically ill, the [place]ial Accu- Chek InformII meters hould not be used for Glu cose determinations. Draw a venous Glucose and send to the Main Lab for Analysis.
[2020-07-28 20:52] LABS: Basophils % 0.9 % (0-1.3); Lymphocytes % 15.7 % (15.3-44.8); MPV 7.2 fL (7.6-11.3); RBC Red Blood Cell Count 4.24 M/uL (4.33-5.43)
[2020-07-28] MEDS ORDERED: NA CHLORIDE 0.9% 1,000 ML ONE (21:01)
[2020-07-28] MEDS ORDERED: Levofloxacin 750mg IV 750 MG/150 ML BAG IV ONE (21:01)
[2020-07-28] MEDS ORDERED: ONDANSETRON 4 MG/2 ML VIAL ONE ×2 (21:04→22:10)
[2020-07-28] MEDS ORDERED: MORPHINE 4 MG/ML SYR ONE ×2 (21:04→22:42)
[2020-07-28 21:09] LABS: Potassium 3.3 mmol/L (3.5-5.1)
[2020-07-28] MEDS ORDERED: DOXYCYCLINE 100 MG CAP PO ONE (21:19)
--- NOTE | 2020-07-28 21:27 | RAD REPORT ---
EXAM DESCRIPTION: RAD - Foot Left 3 View - 07/28/2020 9:08 pm CLINICAL HISTORY: Pain;Swelling COMPARISON: Foot Left 3 View dated 07/16/2020; Foot Left 3 View dated 05/09/2020 FINDINGS: Previous partial amputation of the fifth metatarsal noted. Soft tissue swelling is seen al yamileth the lateral aspect of the foot. Demineralization at the level of the fourth metatarsal phalangeal joint is present, suggesting osteomyelitis.
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
--- NOTE | 2020-07-28 22:06 | P.HP ---
Certification for Inpatient Patient admitted to: Inpatient With expected LOS: >2 Midnights Patient will require the following post-hospital care: None Practitioner: I am a practitioner with admitting privileges, knowledge of patient current condition, hospital course, and medical plan of care. Services: Services provided to patient in accordance with Admission requirements found in Title 42 Section 412.3 of the Code of Federal Regulations <Bib Whitman - Last Filed: 07/28/20 22:00> Patient History Date of Service: 07/28/20 Primary Care Provider: Unknown, Front Window Cashier- Dr. Hamlin Reason for admission: Osteomyelitis History of Present Illness: 35-year-old male with history of diabetes mellitus type 2-uncontrolled, bipolar disorder, tobacco abuse, right BKA, left 5th toe amputation presents emergency department for redness and pain of the dorsum of the left foot. Patient sees Dr. 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 Patient with known wound to the plantar aspect of the left foot but today noticed that some of the skin to the lateral dorsum of his left foot sloughed off revealing an erythematous tissue with some purulent drainage. Patient also with increasing pain in this area. Patient was worked up in the emergency department, labs were remarkable for a white blood cell count 12.9, ESR greater than 140, CRP 77, sodium 130, potassium 3.3, creatinine 1.69, GFR 46, glucose 350. Patient reports his blood sugars have been in the 400 at home. Lactate negative. X-ray left foot performed revealing demineralization at the level of the 4th metatarsal phalangeal joint suggesting osteomyelitis. Case was discussed with Dr. Hamlin who would like the patient to be admitted for further evaluation and management. When I saw the patient in the emergency department is awake, alert, oriented x3. Patient with moderate pain to the left foot extending up the leg. Patient does not appear septic time. - Past Medical/Surgical History Diabetic: Yes -: Bipolar disorder -: Diabetes mellitus type 2 -: Schizoaffective disorder -: Depression -: Osteomyelitis -: Chronic pain -: Diabetic neuropathy -: PVD -: Chronic pain -: Insomnia -: Suicidal - multiple attempts -: Right BKA -: Left 5th toe amputation Psychosocial/ Personal History: The patient is single. He has no children. The patient is disabled. - Family History Mother -: Hypertension, Diabetes Father -: Heart disease, Diabetes Brother -: Hypertension, Diabetes - Social History Smoking Status: Current every day smoker Alcohol use: No CD- Drugs: Yes Caffeine use: Yes Place of Residence: Home <Bib Whitman - Last Filed: 07/28/20 22:00> Date of Service: 08/01/20 <Mikey Méndez - Last Filed: 08/01/20 14:39> Allergies clindamycin Adverse Reaction (Intermediate, Verified 07/28/20 23:26) Nausea/Vomiting vancomycin Adverse Reaction (Intermediate, Verified 07/28/20 23:26) Nausea/Vomiting Home Medications: Gabapentin [Neurontin] 800 mg PO TID 06/10/19 Insulin 70/30 NPH/Reg Human [Novolin 70/30*] 30 unit SQ BEDTIME 06/10/19 Insulin 70/30 NPH/Reg Human [Novolin 70/30*] 50 unit SQ DAILY 06/10/19 Collagenase [Santyl Ointment*] 1 appl TOP DAILY #1 tube 01/17/20 Escitalopram [Lexapro*] 1 tab PO DAILY 07/28/20 Paliperidone Palmitate [Invega Trinza] 234 mg IM SEECOM 07/28/20 Propranolol [Inderal*] 1 tab PO DAILY 07/28/20 Tramadol HCl [Ultram] 1 tab PO Q6H PRN 07/28/20 Review of Systems 10-point ROS is otherwise unremarkable Musculoskeletal: Foot Pain <Bib Whitman - Last Filed: 07/28/20 22:00> Physical Examination - Physical Exam General: Alert, In no apparent distress HEENT: Atraumatic, PERRLA, Mucous membr. moist/pink Neck: Supple, 2+ carotid pulse no bruit, No LAD Respiratory: Clear to auscultation bilaterally, Normal air movement Cardiovascular: Regular rate/rhythm, Normal S1 S2 Gastrointestinal: Normal bowel sounds, No tenderness Musculoskeletal: No tenderness Integumentary: Tenderness/swelling, Erythema, Warmth, Other (Lateral aspect of the dorsum of the left foot) Neurological: Normal gait, Normal speech, Normal strength at 5/5 x4 extr, Normal tone, Normal affect - Studies Laboratory Data (last 24 hrs) 07/28/20 20:45: Sodium 130 L, Potassium 3.3 L, BUN 13, Creatinine 1.69 H, Glucose 350 H 07/28/20 20:45: WBC 12.9 H, Hgb 10.2 L, Hct 31.0 L, Plt Count 444 H D <Bib Whitman - Last Filed: 07/28/20 22:00> - Studies Microbiology Data (last 24 hrs): 07/28/20 20:55 Wound - Left Foot Gram Stain - Final 07/28/20 20:55 Wound - Left Foot Culture & Sensitivity - Final Streptococcus Agalactiae Grp B <Mikey Méndez - Last Filed: 08/01/20 14:39> Assessment and Plan - Plan Assessment Osteomyelitis of the left 4th metatarsal with overlying cellulitis Diabetes mellitus type 2-uncontrolled Acute kidney injury Hypertension Bipolar disorder Tobacco abuse Plan Osteomyelitis of the left 4th metatarsal with overlying cellulitis: Case discussed with podiatry, continue with IV Levaquin and p.o. doxycycline as patient is allergic to vancomycin and clindamycin. Obtain MRI of left foot. P.r.n. pain and nausea medications. DVT prophylaxis Lovenox 40 mg subcutaneous once daily. Appreciate further input from podiatry. Diabetes mellitus type 2-uncontrolled: A.c. HS Accu-Cheks, sliding scale insulin therapy. Acute kidney injury: Sodium 130, likely related to dehydration/prerenal. Continue with IV hydration, recheck morning labs. Consult nephrology as necessary. Hypertension: Obtain and continue home medications as appropriate. Bipolar disorder: Obtain and continue home medications as appropriate. Tobacco abuse: Provide patient with nicotine patch. Discharge Plan: Home Plan to discharge in: Greater than 2 days - Advance Directives Does patient have a Living Will: No Does patient have a Durable POA for Healthcare: No - Code Status/Comfort Care Code Status Assessed: Yes (Full code) Critical Care: No Time Spent Managing Pts Care (In Minutes): 55 <Bib Whitman - Last Filed: 07/28/20 22:00> - Plan Plan of care reviewed with Bib Whitman. Agree with plan as noted above. <Mikey Méndez - Last Filed: 08/01/20 14:39>
[2020-07-28] MEDS ORDERED: HYDROCODONE/APAP 5/325 MG TAB PO PRN (22:41)
[2020-07-28] MEDS ORDERED: ONDANSETRON 4 MG/2 ML VIAL IV PRN (22:41)
[2020-07-28] MEDS ORDERED: ACETAMINOPHEN 500 MG TAB PO PRN (22:41)
[2020-07-28] MEDS ORDERED: POTASSIUM CL SA 10 MEQ TAB PO ONE (23:00)
[2020-07-28] MEDS: NA CHLORIDE 0.9% 1,000 ML IV SCH (23:21)
[2020-07-28] MEDS: MORPHINE 2 MG/ML SYR IV PRN (23:56)
[2020-07-29] MEDS ORDERED: DIPHENHYDRAMINE 25 MG TAB/CAP PO ONE (01:04)
[2020-07-29] MEDS: PROMETHAZINE INJ 25 MG/ML AMP IV PRN ×2 (01:19→13:52)
[2020-07-29 02:16] VITALS: BMI 27.8
[2020-07-29] MEDS: MORPHINE 2 MG/ML SYR IV PRN ×5 (04:03→20:13)
[2020-07-29] MEDS ORDERED: TRAMADOL HCL 50 MG TAB PO PRN (05:45)
[2020-07-29] MEDS ORDERED: TRAMADOL HCL 50 MG TAB PO SCH (06:00)
[2020-07-29 07:03] LABS: Absolute Lymphocytes (CBC) 2.5 K/uL (0.7-4.9); Basophils % 0.7 % (0-1.3); Hematocrit 26.4 % (39.6-49.0); Lymphocytes % 25.2 % (15.3-44.8); MPV 7.4 fL (7.6-11.3); RBC Red Blood Cell Count 3.66 M/uL (4.33-5.43)
[2020-07-29 07:08] LABS: Magnesium 1.8 mg/dL (1.8-2.4)
[2020-07-29] MEDS: INSULIN -REGULAR HUMAN 50 UNIT/0.5 ML ML SQ SCH ×4 (07:30→21:00)
[2020-07-29] MEDS: DOXYCYCLINE 100 MG CAP PO SCH ×2 (08:19→21:59)
[2020-07-29] MEDS: GABAPENTIN 400 MG CAP PO SCH ×3 (08:20→21:55)
[2020-07-29] MEDS: ENOXAPARIN 40 MG/0.4 ML SQ SCH (08:20)
[2020-07-29] MEDS: PROPRANOLOL HCL 10 MG TAB PO SCH (08:20)
[2020-07-29] MEDS: ESCITALOPRAM 20 MG TAB PO SCH (08:20)
[2020-07-29] MEDS: NA CHLORIDE 0.9% 1,000 ML IV SCH ×2 (08:21→18:27)
--- NOTE | 2020-07-29 08:37 | P.PN ---
Subjective Date of Service: 07/29/20 Primary Care Provider: Unknown, Data Warehousing Engineer- Dr. Hamlin Chief Complaint: Osteomyelitis Subjective: No new changes (feeling well, with some pain of L foot. Reports continued drainage / weeping. otherwise denies fevers/chills, SOB/ chest pain / abd pain) Review of Systems 10-point ROS is otherwise unremarkable Physical Examination - Vital Signs Temperature: 98.3 F Blood Pressure: 138/89 Pulse: 88 Respirations: 19 Pulse Ox (%): 95 - Physical Exam General: Alert, In no apparent distress HEENT: Sclerae nonicteric Respiratory: Clear to auscultation bilaterally Cardiovascular: Regular rate/rhythm, Normal S1 S2 Gastrointestinal: Soft and benign, Non-distended, No tenderness Integumentary: Other (L foot: dorsum aspect with erythema, swelling, tenderness. dressing with brownish drainage. plantar side with 2.5cm diameter ulceration with drainage) Neurological: Normal affect - Studies Laboratory Data (last 24 hrs) 07/28/20 20:45: Sodium 130 L, Potassium 3.3 L, BUN 13, Creatinine 1.69 H, Glucose 350 H 07/28/20 20:45: WBC 12.9 H, Hgb 10.2 L, Hct 31.0 L, Plt Count 444 H D Assessment & Plan Physician Review Additional Text: Osteomyelitis of the left 4th metatarsal with overlying cellulitis Diabetes mellitus type 2-uncontrolled Acute kidney injury Hypertension Bipolar disorder Tobacco abuse Plan Osteomyelitis of the left 4th metatarsal with overlying cellulitis: -Case discussed with podiatry, continue with IV Levaquin and p.o. doxycycline as patient is allergic to vancomycin and clindamycin. -xray consistent with osteomyelitis -Obtain MRI of left foot. will likely need long-term antibiotics -P.r.n. pain and nausea medications. -DVT prophylaxis Lovenox 40 mg subcutaneous once daily Acute kidney injury, prerenal: Improved significantly with IVF hydration, continue IVF Diabetes mellitus type 2-uncontrolled: A.c. HS Accu-Cheks, sliding scale insulin therapy. Hypertension: continue home medications Bipolar disorder: continue home medications Dispo: pending MRI and further eval by podiatry. possible home vs placement, will likely need mcc antibiotics Time Spent Managing Pts Care (In Minutes): 35
[2020-07-29] MEDS ORDERED: MAGNESIUM SULFATE 1 gm IVPB 1 GM/100 ML BAG IV ONE (09:00)
--- NOTE | 2020-07-29 10:59 | P.CNS ---
Date of Consult: 07/29/20 Primary Care Provider: Unknown, Branch Account Executive- Dr. Hamlin Chief Complaint: Osteomyelitis Allergies clindamycin Adverse Reaction (Intermediate, Verified 07/28/20 23:26) Nausea/Vomiting vancomycin Adverse Reaction (Intermediate, Verified 07/28/20 23:26) Nausea/Vomiting Home Medications: Gabapentin [Neurontin] 800 mg PO TID 06/10/19 Insulin 70/30 NPH/Reg Human [Novolin 70/30*] 30 unit SQ BEDTIME 06/10/19 Insulin 70/30 NPH/Reg Human [Novolin 70/30*] 50 unit SQ DAILY 06/10/19 Collagenase [Santyl Ointment*] 1 appl TOP DAILY #1 tube 01/17/20 Escitalopram [Lexapro*] 1 tab PO DAILY 07/28/20 Paliperidone Palmitate [Invega Trinza] 234 mg IM SEECOM 07/28/20 Propranolol [Inderal*] 1 tab PO DAILY 07/28/20 Tramadol HCl [Ultram] 1 tab PO Q6H PRN 07/28/20 - Past Medical/Surgical History Diabetic: Yes -: Bipolar disorder -: Diabetes mellitus type 2 -: Schizoaffective disorder -: Depression -: Osteomyelitis -: Chronic pain -: Diabetic neuropathy -: PVD -: BKA-RIGHT -: Insomnia -: Suicidal - multiple attempts -: smoker -: Right BKA -: Left 5th toe amputation Psychosocial/ Personal History: The patient is single. He has no children. The patient is disabled. - Family History Mother Medical History: Hypertension, Diabetes Father Medical History: Heart disease, Diabetes Brother Medical History: Hypertension, Diabetes - Social History Smoking Status: Current every day smoker Alcohol use: No CD- Drugs: Yes Caffeine use: Yes Place of Residence: Home Review of Systems 10-point ROS is otherwise unremarkable Physical Examination Temp Pulse Resp BP Pulse Ox 98.3 F 88 18 138/89 94 07/29/20 08:43 07/29/20 08:43 07/29/20 08:49 07/29/20 08:43 07/29/20 08:49 General: Alert, In no apparent distress, Oriented x3 Cardiovascular: Normal pulses Capillary refill: <2 Seconds Musculoskeletal: No clubbing, No swelling, No contractures, No erythema, No warmth, Tenderness (pain on palpation of plantar left foot) Integumentary: Diabetic ulcer (ulceration plantar left 4th mpj has sanguinopurulent drainage and probes to bone. Two small ulceration dorsum of left lateral forefoot that communicates with plantar wound. ) Neurological: Abnormal sensation Laboratory Data (last 24 hrs) 07/28/20 20:45: Sodium 130 L, Potassium 3.3 L, BUN 13, Creatinine 1.69 H, Glucose 350 H 07/28/20 20:45: WBC 12.9 H, Hgb 10.2 L, Hct 31.0 L, Plt Count 444 H D Imagings Data: radiographs leftfoot demonstrate demineralization of left fourth metatarsal head consistent with osteomyelitis. - Problems (1) Diabetes mellitus Onset Date: 09/27/16 Current Visit: No Status: Chronic Qualifiers: Diabetes mellitus type: type 2 Diabetes mellitus half-way insulin use: with half-way use Diabetes mellitus complication status: with skin complications Diabetes mellitus complication detail: with foot ulcer Qualified Code(s): E11.621 - Type 2 diabetes mellitus with foot ulcer; L97.509 - Non-pressure chronic ulcer of other part of unspecified foot with unspecified severity; Z79.4 - termite treater (current) use of insulin (2) Ulcer of left foot due to type 2 diabetes mellitus Current Visit: No Status: Chronic (3) Cellulitis Current Visit: No Status: Resolved Qualifiers: Site of cellulitis: extremity Site of cellulitis of extremity: lower extre mity Laterality: left Qualified Code(s): L03.116 - Cellulitis of left lower limb Conclusions/Impression: wounds were irrigated at bedside with saline and packed with gauze, this is to be performed bid Awaiting MRI results Patient will need termination clerk iv antibiotics and would benefit from LTAC placement
[2020-07-29] MEDS ORDERED: INFLUENZA VACCINE (for 3y+) 0.5 ML DOSE IMVAC ONE (12:00)
[2020-07-29] MEDS: TRAMADOL HCL 50 MG TAB PO PRN (18:27)
[2020-07-29] MEDS ORDERED: Levofloxacin500mg IV 500 MG/100 ML BAG IV SCH (22:00)
[2020-07-30] MEDS: MORPHINE 2 MG/ML SYR IV PRN ×3 (00:19→08:39)
[2020-07-30] MEDS: TRAMADOL HCL 50 MG TAB PO PRN ×2 (01:29→15:21)
[2020-07-30 03:26] VITALS: O2SAT 100
[2020-07-30] MEDS: NA CHLORIDE 0.9% 1,000 ML IV SCH (04:57)
[2020-07-30 05:18] LABS: Absolute Lymphocytes (CBC) 3.3 K/uL (0.7-4.9); Basophils % 1.1 % (0-1.3); Hematocrit 26.3 % (39.6-49.0); Lymphocytes % 37.7 % (15.3-44.8); MPV 7.1 fL (7.6-11.3); RBC Red Blood Cell Count 3.65 M/uL (4.33-5.43)
[2020-07-30 05:27] LABS: C-Reactive Protein 43.6 mg/L (<3.00); Magnesium 1.8 mg/dL (1.8-2.4); Potassium 4.2 mmol/L (3.5-5.1)
[2020-07-30] MEDS: INSULIN -REGULAR HUMAN 50 UNIT/0.5 ML ML SQ SCH ×2 (07:30→11:56)
[2020-07-30] MEDS: ENOXAPARIN 40 MG/0.4 ML SQ SCH (07:58)
[2020-07-30] MEDS: ESCITALOPRAM 20 MG TAB PO SCH (07:59)
[2020-07-30] MEDS: PROPRANOLOL HCL 10 MG TAB PO SCH (07:59)
[2020-07-30] MEDS: DOXYCYCLINE 100 MG CAP PO SCH (08:00)
[2020-07-30] MEDS: GABAPENTIN 400 MG CAP PO SCH ×2 (08:00→14:45)
[2020-07-30] MEDS ORDERED: MAGNESIUM SULFATE 1 gm IVPB 1 GM/100 ML BAG IV ONE (09:00)
[2020-07-30] MEDS ORDERED: HYDROMORPHONE HCL 1 MG/ML INJ IV PRN (10:59)
--- NOTE | 2020-07-30 13:06 | P.DS ---
Admission Date: 07/28/20 Discharge Date: 07/30/20 Primary Care Provider: Unknown, Drawbench Operator- Dr. Hamlin [facility] Discharge Condition: FAIR Reason for Admission: Osteomyelitis Consultations: Podiatry - Dr. Hamlin Procedures: X-ray foot (07/28): Previous partial amputation of the fifth metatarsal noted. Soft tissue swelling is seen along the lateral aspect of the foot. Demineralization at the level of the fourth metatarsal phalangeal joint is present, suggesting osteomyelitis. Problem List Osteomyelitis of the left 4th metatarsal with overlying cellulitis Diabetes mellitus type 2-uncontrolled Acute kidney injury Hypertension Bipolar disorder Tobacco abuse Brief History of Present Illness: 35-year-old male with history of diabetes mellitus type 2-uncontrolled, bipolar disorder, tobacco abuse, right BKA, left 5th toe amputation presents emergency department for redness and pain of the dorsum of the left foot. Patient sees Dr. Hamlin support services tech and has had recent grafting as well in the area. Patient with known wound to the plantar aspect of the left foot but today noticed that some of the skin to the lateral dorsum of his left foot sloughed off revealing an erythematous tissue with some purulent drainage. Patient also with increasing pain in this area. Patient was worked up in the emergency department, labs were remarkable for a white blood cell count 12.9, ESR greater than 140, CRP 77, sodium 130, potassium 3.3, creatinine 1.69, GFR 46, glucose 350. Patient reports his blood sugars have been in the 400 at home. Lactate negative. X-ray left foot performed revealing demineralization at the level of the 4th metatarsal phalangeal joint suggesting osteomyelitis. Hospital Course: The patient was admitted for further evaluation and treatment. The patient's support services tech , Dr. Hamlin, was consulted. The patient was treated with IV Levaquin and p.o. doxycycline as patient is allergic to vancomycin and clindamycin. An MRI was ordered, however was unable to be obtained due to unavailability of MRI on weekends. He was recommended that patient would benefit from transfer to LTAC due to the ongoing need for wound care and prolonged course of antibiotics. Patient's leukocytosis of 12.9 improved to the 8.8 on day of discharge. ESR on admission >140. CRP improved 77-> 43.6. His creatinine improved from 1.69 -> 1.10 with IVF. Blood cultures were obtained in the ED and were no growth x24 hr. Culture obtained from his wound was growing 4+ beta-hemolytic strep group B on preliminary culture. Gram stain with Gram positive cocci in clusters 1+, gram- negative rods 1+. Vital Signs/Physical Exam: Temp Pulse Resp BP Pulse Ox 97 F 78 18 155/98 H 100 07/30/20 08:00 07/30/20 08:00 07/30/20 11:50 07/30/20 08:00 07/30/20 11:50 General: Alert, Mild distress (in pain) HEENT: Sclerae nonicteric Respiratory: Clear to auscultation bilaterally, Normal air movement Cardiovascular: Regular rate/rhythm Gastrointestinal: Soft and benign, Non-distended, No tenderness Integumentary: Other (Left foot: The dorsum aspect with erythema, swelling, tenderness, dressing with brownish drainage. Plantar side of 2.5 cm in diameter ulceration with drainage ) Neurological: Normal speech, Normal affect Laboratory Data at Discharge: WBC 8.8 K/uL (4.3-10.9) 07/30/20 04:59 Hgb 9.1 g/dL (13.6-17.9) L 07/30/20 04:59 Hct 26.3 % (39.6-49.0) L 07/30/20 04:59 Plt Count 394 K/uL (152-406) 07/30/20 04:59 Sodium 138 mmol/L (136-145) 07/30/20 04:59 Potassium 4.2 mmol/L (3.5-5.1) 07/30/20 04:59 BUN 13 mg/dL (7-18) 07/30/20 04:59 Creatinine 1.10 mg/dL (0.55-1.3) 07/30/20 04:59 Glucose 125 mg/dL (74-106) H 07/30/20 04:59 Magnesium 1.8 mg/dL (1.8-2.4) 07/30/20 04:59 Home Medications: Gabapentin [Neurontin] 800 mg PO TID 06/10/19 Insulin 70/30 NPH/Reg Human [Novolin 70/30*] 30 unit SQ BEDTIME 06/10/19 Insulin 70/30 NPH/Reg Human [Novolin 70/30*] 50 unit SQ DAILY 06/10/19 Collagenase [Santyl Ointment*] 1 appl TOP DAILY #1 tube 01/17/20 Escitalopram [Lexapro*] 1 tab PO DAILY 07/28/20 Paliperidone Palmitate [Invega Trinza] 234 mg IM SEECOM 07/28/20 Propranolol [Inderal*] 1 tab PO DAILY 07/28/20 Tramadol HCl [Ultram] 1 tab PO Q6H PRN 07/28/20 Diet: ADA Followup: Unknown,U [Primary Care Provider] - Time spent managing pt's care (in minutes): 35
[2020-07-30 14:13] VITALS: BP 153/87; TEMP 97.8
== END 2020-07-30 17:08 | DRG 638 ==
LOC: ER 20:08 → ERHOLD 21:27 → 2ND 22:49
PROVIDERS: ADMIT Hospitalist; ATTEND Hospitalist
DX: E11.69 Type 2 diabetes mellitus with other specified complication (principal); M86.172 Other acute osteomyelitis, left ankle and foot; L03.116 Cellulitis of left lower limb; E11.65 Type 2 diabetes mellitus with hyperglycemia; B95.1 Streptococcus, group B, as the cause of diseases classified elsewhere; Z79.899 Other long term (current) drug therapy; F31.9 Bipolar disorder, unspecified; N17.9 Acute kidney failure, unspecified; Z89.511 Acquired absence of right leg below knee; G89.29 Other chronic pain; Z72.0 Tobacco use; Z91.5 Personal history of self-harm; E11.621 Type 2 diabetes mellitus with foot ulcer; G47.00 Insomnia, unspecified; F20.9 Schizophrenia, unspecified; E11.40 Type 2 diabetes mellitus with diabetic neuropathy, unspecified; I73.9 Peripheral vascular disease, unspecified; Z20.828 Contact with and (suspected) exposure to other viral communicable diseases; Z23 Encounter for immunization
CPT/HCPCS: 36415; 80048; 82947; 83605; 83735; 84145; 85025; 85652; 86140; 87040; 87070; 87077; 87186; 87205; 90471; 96365; 96366; 96375; 99285; J1170; J1650; J2270; J2405; J2550; J3475; J7030; Q2035; U0002